=== PATIENT | female | born 1960 | race Caucasian/White ===

== ENCOUNTER 2018-08-16 00:24 | Emergency (ER) | payer OTHER ==
[~2018-08-16] VITALS: Ht 154.9 cm; Wt 66.2 kg
[2018-08-16] MEDS ORDERED: ONDANSETRON HCL INJ 2MG/ML 2ML 2 MG/ML VIAL IV STA (01:16)
[2018-08-16] MEDS ORDERED: HYDROMORPHONE 2MG/ML 2 MG/ML ML ONE (01:21)
[2018-08-16] MEDS ORDERED: ONDANSETRON HCL INJ 2MG/ML 2ML 2 MG/ML VIAL ONE (01:21)
[2018-08-16 01:29] LABS: BASOPHILS # (AUTO) 0.1 (0.0-0.1); BASOPHILS % 0.2 % (0.0-1.0); HEMOGLOBIN 11.9 g/dL (12.0-16.0); LYMPHOCYTES # (AUTO) 0.7 (1.0-3.2); LYMPHOCYTES % 1.9 % (18.0-39.1); MEAN CORPUSCULAR HEMOGLOBIN 23.9 pg (28-32); MEAN CORPUSCULAR HGB CONC 31.3 g/dL (31-35); MEAN CORPUSCULAR VOLUME 76.3 fL (81-99); MONOCYTES # (AUTO) 1.4 (0.2-0.8); NEUTROPHILS # (AUTO) 33.2 (2.1-6.9); NEUTROPHILS % 92.9 % (38.7-80.0); PLATELET COUNT 504 x10e3/uL (140-360); RED BLOOD COUNT 4.98 x10e6/uL (3.6-5.1)
[2018-08-16] MEDS ORDERED: HYDROMORPHONE 2MG/ML 2 MG/ML ML IV ONE ×5 (01:30→15:30)
[2018-08-16 01:32] LABS: COLOR,URINE YELLOW (YELLOW); LEUKOCYTE ESTERASE ,URINE 2+ (NEGATIVE); NITRITE,URINE NEGATIVE (NEGATIVE); PROTEIN,URINE DIPSTICK 2+ (NEGATIVE)
[2018-08-16 01:33] LABS: BILIRUBIN,URINE 2+ (NEGATIVE); CLARITY,URINE CLOUDY (CLEAR); KETONES,URINE TRACE (NEGATIVE); URINE UROBILINOGEN 0.2 mg/dL (0.2 - 1)
[2018-08-16 01:49] LABS: ALBUMIN 3.3 g/dL (3.5-5.0); ALBUMIN/GLOBULIN RATIO 0.9 (0.8-2.0); ALKALINE PHOSPHATASE 50 IU/L (40-150); ANION GAP 22.3 mmol/L (8-16); BLOOD UREA NITROGEN 22 mg/dL (7-26); BUN/CREATININE RATIO 19 (6-25); CALCIUM 11.2 mg/dL (8.4-10.2); CARBON DIOXIDE 15 mmol/L (22-29); CHLORIDE 99 mmol/L (98-107); CREATININE, SERUM 1.14 mg/dL (0.57-1.11); EST GLOMERULAR FILTRATION RATE 49 ML/MIN (60-); GLUCOSE 232 mg/dL (74-118); POTASSIUM 4.3 mmol/L (3.5-5.1); SODIUM 132 mmol/L (136-145)
[2018-08-16 01:50] LABS: ALANINE AMINOTRANSFERASE < 6 IU/L (0-55)
[2018-08-16] MEDS ORDERED: SODIUM CHLORIDE 0.9% 1000ML 1,000 ML IV SCH ×2 (02:00→07:45)
[2018-08-16 02:07] LABS: BACTERIA,URINE FEW /HPF; EPITHELIAL CELLS,URINE RARE /LPF; MUCUS,URINE MANY (RARE); RBC,URINE >50 /HPF (0-5); WBC,URINE (MAN) >50 /HPF (0-5)
[2018-08-16] MEDS ORDERED: IOPAMIDOL 370 MG/ML 200 ML INFUS..BTL INJ ONE (02:32)
[2018-08-16] MEDS ORDERED: SODIUM CHLORIDE 0.9% 50ML 50 ML ONE (02:32)
--- NOTE | 2018-08-16 02:35 | Diagnostic Imaging Report ---
EXAM: CT Abdomen and Pelvis WITH and without contrast INDICATION: Pain COMPARISON: None. TECHNIQUE: Abdomen and Pelvis was scanned utilizing a multidetector helical scanner before and after administration of IV contrast. Coronal and sagittal reformations were obtained. IV CONTRAST: 100 mL Isovue-370 COMPLICATIONS: None RADIATION DOSE: Total DLP:286 mGy*cm Estimated effective dose: (DLP x 0.015 x size factor) mSv CTDIvol has been reviewed. It is below the limits set by the Radiation Protocol Committee (RPC). Appropriate CT dose reduction techniques were utilized. FINDINGS: Abdomen: Lung Bases: No acute findings. Solid Organs: Liver is enlarged. Left kidney atrophic. Tiny nonobstructing bilateral renal calculi better demonstrated precontrast images. No hydronephrosis or ureteral calculi. Solid organs otherwise unremarkable. Upper GI Tract: Decompressed stomach limits evaluation. No small bowel obstructive changes. Vascularity: Mild to moderate aortic vascular calcifications with no aneurysm. Lymph Nodes: No suspicious adenopathy. Other: None. Pelvis: Bladder: Decompressed, limiting evaluation. Other: Markedly enlarged heterogeneous/necrotic uterus/mass consistent with known malignancy. Colon: Diverticulosis sigmoid colon. There is a loop of colon with inflammatory changes in the central lower abdomen/upper pelvis directly adjacent to large uterine mass. Visualized portions of appendix not dilated and gas-filled. Bones: No acute findings. IMPRESSION: 1. Markedly enlarged heterogeneous/necrotic uterus, consistent with known malignancy. 2. Diverticulosis. Mild to moderate inflammatory stranding about loops of sigmoid colon likely diverticulitis. Given adjacent uterine mass, malignant involvement of sigmoid colon not excluded. 3. Appendix not distinctly dilated and gas-filled, which is normal/physiologic. Surrounding inflammation presumed secondary to above described process and not appendicitis. 4. Hepatomegaly. Signed by: Dr. Ruddy Atkins MD on 08/16/2018 2:32 AM
[2018-08-16] MEDS ORDERED: PIPER-TAZ 3.375 GM 50 ML IV STA (02:39)
[2018-08-16] MEDS ORDERED: METRONIDAZOLE 500MG/NS 100ML 100 ML IV STA (02:39)
--- NOTE | 2018-08-16 03:55 | NUR ---
DR. BARRY PHAM, PTS SCREWDOWN OPERATOR, PAGED THRU ANSWERING SERVICE ([phone]) PER ER MD REQUEST
--- NOTE | 2018-08-16 04:13 | NUR ---
TRANSFER INITIATED TO [facility], SPOKE TO ABDIRASHID
--- NOTE | 2018-08-16 05:13 | NUR ---
TRANSFER DENIED BY [facility] DUE TO NO CLAY ARTIST/ONCOLOGY
--- NOTE | 2018-08-16 05:14 | NUR ---
TRANSFER INITIATED TO [facility]
--- NOTE | 2018-08-16 05:45 | NUR ---
PER [facility], ATTEMPTING TO CONTACT PREPARED FOODS TEAM LEADER ONCOLOGY
--- NOTE | 2018-08-16 06:35 | NUR ---
SPOKE TO [facility] AT [facility], [facility]UARD IS CALLING [facility]; PER EDUARD, UNABLE TO DETERMINE WHICH MD IS [facility] FOR ONCOLOGY
--- NOTE | 2018-08-16 07:14 | NUR ---
Report to GAUTAM Rojas
[2018-08-16] MEDS ORDERED: SODIUM CHLORIDE 0.9% 1000ML 1,000 ML IV ONE (07:30)
[2018-08-16 08:35] VITALS: BP 119/71
== END 2018-08-16 09:12 | disposition short-term general hospital (02) ==
LOC: ER 00:24
DX: R10.31 Right lower quadrant pain (principal); R11.2 Nausea with vomiting, unspecified; K57.32 Diverticulitis of large intestine without perforation or abscess without bleeding; C55 Malignant neoplasm of uterus, part unspecified
CPT/HCPCS: 36415; 74178; 80053; 81001; 83605; 85025; 96374; 96375; 96376; 99284; J1170; J2405; J2543; J7030; Q9967

== ENCOUNTER 2018-10-25 18:52 | Inpatient (IN) | payer OTHER ==
[~2018-10-25] VITALS: Ht 154.9 cm; Wt 56.4 kg
--- OUTSIDE RECORDS SUMMARY | 2018-10-25 18:55 | XMS REPORT | Clinical Summary ---
Author Author DARYN [facility] Address Unknown Phone Unavailable Care Team Providers Care History Instructor Name Role Phone PCP Unavailable Allergies No Known Allergies Medications End Date Status Medication Sig Dispensed Refills Start Date 09/21/2019 Active acetaminophen (TYLENOL) Take 2 30 tablet 0 325 MG tablet tablets (650 9 mg total) by mouth every 6 (six) hours for 360 days. Active dextrose 50% solution Inject 25 mLs 50 mL 0 intravenously 9 as needed (blood sugar less than 70 and patient unable to take PO juice or soda). Active enoxaparin (LOVENOX) 40 Inject 0.4 1 Syringe 0 mg/0.4 mL Syrg mLs (40 mg 9 total) subcutaneousl y daily. Active ertapenem (INVanz) MBP 1 Inject 1 g 0 g in 100 mL NS intravenously 9 daily. Active fluconazole (DIFLUCAN) Inject 200 200 mL 0 IVPB 400 mg in sodium mLs (400 mg 9 chloride 0.9% (NS) 200 mL total) intravenously daily. Active furosemide (LASIX) 10 Inject 4 mLs 4 mL 0 mg/mL injection (40 mg total) 9 intravenously 2 (two) times daily. 09/26/2019 Active insulin regular (HUMULIN Use as 10 mL 0 R,NOVOLIN R) 100 unit/mL directed. 9 injection Active insulin NPH 100 unit/mL Inject 0.18 10 mL 0 (3 mL) InPn mLs (18 Units 9 total) subcutaneousl y daily. 09/21/2019 Active ipratropium-albuterol Take 3 mLs by 10 ampule 0 (DUO-NEB) 0.5 mg-3 mg(2.5 nebulization 9 mg base)/3 mL nebulizer every 6 (six) solution hours for 360 days. 10/26/2018 Active lidocaine (LIDODERM) 5 % Place 1 patch 30 patch 0 patch onto the skin 9 daily for 30 days Remove & Discard patch within 12 hours or as directed by MD. Active ondansetron (ZOFRAN) 4 Inject 2 mLs 20 mL 0 mg/2 mL injection (4 mg total) 9 intravenously every 8 (eight) hours as needed. 09/26/2019 Active insulin regular (HUMULIN Use as 10 mL 0 R,NOVOLIN R) 100 unit/mL directed. 9 injection 10/06/2018 collagenase (SANTYL) 250 Apply 15 g 0 units/g ointment topically 9 daily for 10 days. Active Problems Problem Noted Date Anemia 09/26/2018 Hypoxemia requiring supplemental oxygen 09/04/2018 Hypervolemia 09/04/2018 Hypokalemia 09/04/2018 Hypomagnesemia 09/04/2018 Uterine cancer 08/22/2018 Pelvic abscess in female 08/22/2018 Acute pain 08/22/2018 Acute hypoxemic respiratory failure 08/22/2018 Smoker 08/22/2018 Type 2 diabetes mellitus, without long-term current use of insulin 08/22/2018 Kidney stones 08/22/2018 Essential hypertension 08/22/2018 HLD (hyperlipidemia) 08/22/2018 Deep tissue injury 08/22/2018 Hyperchloremia 08/22/2018 Severe sepsis with acute organ dysfunction 08/22/2018 Resolved Problems Problem Noted Date Resolved Date Acute blood loss anemia 08/22/2018 09/26/2018 Encounters Care Team Description Date Type Specialty Carolyn Harrington CRNA 09/18/2018 Anesthesia Event Wai Cassidy MD CYSTOSCOPY,INSERTION URETERAL STENTS 09/18/2018 Surgery Reza David MD 08/22/2018 Anesthesia Event Bob Mancera MD LAPAROTOMY,EXPLORATORY 08/22/2018 Surgery Abby Benson MD 08/22/2018 Anesthesia Intensive Care Event Johnny Reyes MD Rodriguez, Angel Arturo, MD Acute blood loss anemia; Acute hypoxemic respiratory failure (HCC); Postprocedural intra-abdominal sepsis; Severe sepsis with acute organ dysfunction (HCC); Acute respiratory insufficiency; Acute pain; Malignant neoplasm of endometrium (HCC); Hypervolemia, unspecified hypervolemia type; Hypomagnesemia; Hypoxemia requiring supplemental oxygen 08/22/2018 [facility] General Internal Medicine - Encounter 09/26/2018 08/22/2018 Orders Only General Internal Medicine after 10/24/2017 Social History Date Tobacco Use Types Packs/Day Years Used Never Assessed Sex Assigned at Date Recorded Not on file Industry Job Start Date Occupation Not on file Not on file Not on file Travel End Travel History Travel Start No recent travel history available. Last Filed Vital Signs Time Taken Vital Sign Reading 09/26/2018 12:00 PM CDT Blood Pressure 126/78 09/26/2018 12:00 PM CDT Pulse 89 09/26/2018 12:00 PM CDT Temperature 36.1 C (97 F) 09/26/2018 12:00 PM CDT Respiratory Rate 18 09/26/2018 12:00 PM CDT Oxygen Saturation 94% 09/08/2018 1:30 PM MEDICATION COORDINATOR Inhaled Oxygen 36% Concentration 09/25/2018 4:59 AM CDT Weight 59.2 kg (130 lb 9.6 oz) 08/22/2018 2:00 AM MEDICATION COORDINATOR Height 154.9 cm (5' 1") 09/25/2018 4:59 AM CDT Body Mass Index 24.68 Plan of Treatment Not on file Implants Device Identifier Shelf Expiration Date Model / Serial / Lot Implanted Type Area Manufactur er 10/08/2018 [id number] / N/A / [id number] Stent Uret [employer]nt[employer] Inj [id number] IMPLANTS Left: Ureter [employer] [id number] - Sn/A SCI:UROLOG Implanted: Qty: 1 on 09/18/2018 by Rolan/Wai Hollis MD GY 10/08/2018 [id number] / N/A / [id number] Stent [employer] Inj [id number] IMPLANTS Right: Ureter [employer] [id number] - Sn/A SCI:UROLOG Implanted: Qty: 1 on 09/18/2018 by Rolan/Wai Hollis MD GY Procedures Comments Procedure Name Priority Date/Time Associated Diagnosis RHYTHM STRIP - SCAN 10/12/2018 7:30 PM CDT RHYTHM STRIP - SCAN 09/28/2018 10:21 AM CDT POCT-GLUCOSE METER Routine 09/26/2018 12:02 PM CDT POCT-GLUCOSE METER Routine 09/26/2018 7:50 AM CDT XR CHEST 1 VIEW Routine 09/26/2018 PORTABLE/BEDSIDE 7:34 AM CDT CBC W/PLT COUNT & AUTO Routine 09/26/2018 DIFFERENTIAL 5:32 AM CDT CBC W/PLT COUNT & AUTO Routine 09/26/2018 DIFFERENTIAL 5:32 AM CDT BASIC METABOLIC PANEL (7) Routine 09/26/2018 5:32 AM CDT PHOSPHORUS Routine 09/26/2018 5:32 AM CDT MAGNESIUM Routine 09/26/2018 5:32 AM CDT PT/APTT Routine 09/26/2018 5:32 AM CDT POCT-GLUCOSE METER Routine 09/25/2018 8:56 PM CDT POCT-GLUCOSE METER Routine 09/25/2018 5:36 PM CDT POCT-GLUCOSE METER Routine 09/25/2018 12:35 PM CDT XR CHEST 1 VIEW Routine 09/25/2018 PORTABLE/BEDSIDE 9:04 AM CDT POCT-GLUCOSE METER Routine 09/25/2018 7:54 AM CDT CBC W/PLT COUNT & AUTO Routine 09/25/2018 DIFFERENTIAL 5:08 AM CDT CBC W/PLT COUNT & AUTO Routine 09/25/2018 DIFFERENTIAL 5:08 AM CDT BASIC METABOLIC PANEL (7) Routine 09/25/2018 5:08 AM CDT PHOSPHORUS Routine 09/25/2018 5:08 AM CDT MAGNESIUM Routine 09/25/2018 5:08 AM CDT PT/APTT Routine 09/25/2018 5:08 AM CDT POCT-GLUCOSE METER Routine 09/24/2018 9:19 PM CDT POCT-GLUCOSE METER Routine 09/24/2018 6:05 PM CDT POCT-GLUCOSE METER Routine 09/24/2018 12:38 PM CDT XR CHEST 1 VIEW Routine 09/24/2018 PORTABLE/BEDSIDE 10:50 AM CDT POCT-GLUCOSE METER Routine 09/24/2018 8:23 AM CDT CBC W/PLT COUNT & AUTO Routine 09/24/2018 DIFFERENTIAL 4:51 AM CDT CBC W/PLT COUNT & AUTO Routine 09/24/2018 DIFFERENTIAL 4:51 AM CDT BASIC METABOLIC PANEL (7) Routine 09/24/2018 4:51 AM CDT PHOSPHORUS Routine 09/24/2018 4:51 AM CDT MAGNESIUM Routine 09/24/2018 4:51 AM CDT PT/APTT Routine 09/24/2018 4:51 AM CDT POCT-GLUCOSE METER Routine 09/23/2018 9:24 PM CDT POCT-GLUCOSE METER Routine 09/23/2018 5:34 PM CDT POCT-GLUCOSE METER Routine 09/23/2018 1:48 PM CDT URINALYSIS W/ REFLEX Routine 09/23/2018 URINE CULTURE 11:48 AM CDT URINE CULTURE Routine 09/23/2018 11:48 AM CDT POCT-GLUCOSE METER Routine 09/23/2018 7:05 AM CDT CBC W/PLT COUNT & AUTO Routine 09/23/2018 DIFFERENTIAL 5:30 AM CDT CBC W/PLT COUNT & AUTO Routine 09/23/2018 DIFFERENTIAL 5:30 AM CDT BASIC METABOLIC PANEL (7) Routine 09/23/2018 5:30 AM CDT PHOSPHORUS Routine 09/23/2018 5:30 AM CDT MAGNESIUM Routine 09/23/2018 5:30 AM CDT PT/APTT Routine 09/23/2018 5:30 AM CDT XR CHEST 1 VIEW Routine 09/23/2018 PORTABLE/BEDSIDE 4:05 AM CDT POCT-GLUCOSE METER Routine 09/22/2018 9:29 PM CDT POCT-GLUCOSE METER Routine 09/22/2018 5:04 PM CDT POCT-GLUCOSE METER Routine 09/22/2018 12:02 PM CDT POCT-GLUCOSE METER Routine 09/22/2018 8:25 AM CDT XR CHEST 1 VIEW Routine 09/22/2018 PORTABLE/BEDSIDE 7:19 AM CDT PHOSPHORUS Routine 09/22/2018 5:45 AM CDT MAGNESIUM Routine 09/22/2018 5:45 AM CDT PT/APTT Routine 09/22/2018 5:45 AM CDT POCT-GLUCOSE METER Routine 09/21/2018 9:28 PM CDT POCT-GLUCOSE METER Routine 09/21/2018 6:04 PM CDT POCT-GLUCOSE METER Routine 09/21/2018 11:52 AM CDT POCT-GLUCOSE METER Routine 09/21/2018 7:41 AM CDT XR CHEST 1 VIEW Routine 09/21/2018 PORTABLE/BEDSIDE 7:08 AM CDT PT/APTT Routine 09/21/2018 4:10 AM CDT CBC W/PLT COUNT & AUTO Routine 09/21/2018 DIFFERENTIAL 4:03 AM CDT CBC W/PLT COUNT & AUTO Routine 09/21/2018 DIFFERENTIAL 4:03 AM CDT BASIC METABOLIC PANEL (7) Routine 09/21/2018 4:03 AM CDT PHOSPHORUS Routine 09/21/2018 4:03 AM CDT MAGNESIUM Routine 09/21/2018 4:03 AM CDT POCT-GLUCOSE METER Routine 09/20/2018 9:33 PM CDT POCT-GLUCOSE METER Routine 09/20/2018 5:43 PM CDT POCT-GLUCOSE METER Routine 09/20/2018 11:46 AM CDT XR CHEST 1 VIEW Routine 09/20/2018 PORTABLE/BEDSIDE 8:39 AM CDT POCT-GLUCOSE METER Routine 09/20/2018 7:46 AM CDT CBC W/PLT COUNT & AUTO Routine 09/20/2018 DIFFERENTIAL 4:28 AM CDT CBC W/PLT COUNT & AUTO Routine 09/20/2018 DIFFERENTIAL 4:28 AM CDT BASIC METABOLIC PANEL (7) Routine 09/20/2018 4:28 AM CDT PHOSPHORUS Routine 09/20/2018 4:28 AM CDT MAGNESIUM Routine 09/20/2018 4:28 AM CDT PT/APTT Routine 09/20/2018 4:28 AM CDT POCT-GLUCOSE METER Routine 09/19/2018 9:12 PM CDT POCT-GLUCOSE METER Routine 09/19/2018 5:39 PM CDT POCT-GLUCOSE METER Routine 09/19/2018 12:54 PM CDT POCT-GLUCOSE METER Routine 09/19/2018 9:21 AM CDT XR CHEST 1 VIEW Routine 09/19/2018 PORTABLE/BEDSIDE 8:55 AM CDT CBC W/PLT COUNT & AUTO Routine 09/19/2018 DIFFERENTIAL 5:17 AM CDT CBC W/PLT COUNT & AUTO Routine 09/19/2018 DIFFERENTIAL 5:17 AM CDT BASIC METABOLIC PANEL (7) Routine 09/19/2018 5:17 AM CDT PHOSPHORUS Routine 09/19/2018 5:17 AM CDT MAGNESIUM Routine 09/19/2018 5:17 AM CDT PT/APTT Routine 09/19/2018 5:17 AM CDT POCT-GLUCOSE METER Routine 09/18/2018 10:46 PM CDT POCT-GLUCOSE METER Routine 09/18/2018 9:35 PM CDT FL SUSTAIN ENGINEER IN OR 30 Routine 09/18/2018 MINUTE INCREMENTS 9:15 PM CDT POCT-GLUCOSE METER Routine 09/18/2018 4:08 PM CDT CYSTOSCOPY,RETROGRADES 09/18/2018 Hydronephrosis, 2:40 PM CDT unspecified hydronephrosis type Special Needs REQ: TF CYSTOSCOPY,INSERTION 09/18/2018 Hydronephrosis, URETERAL STENTS 2:40 PM CDT unspecified hydronephrosis type Special Needs REQ: TF POCT-GLUCOSE METER Routine 09/18/2018 1:30 PM CDT US RENAL COMPLETE SHIVANI 09/18/2018 11:52 AM CDT URINE CULTURE Routine 09/18/2018 9:07 AM CDT POCT-GLUCOSE METER Routine 09/18/2018 8:32 AM CDT XR CHEST 1 VIEW Routine 09/18/2018 PORTABLE/BEDSIDE 7:28 AM CDT CBC W/PLT COUNT & AUTO Routine 09/18/2018 DIFFERENTIAL 3:52 AM CDT CBC W/PLT COUNT & AUTO Routine 09/18/2018 DIFFERENTIAL 3:52 AM CDT BASIC METABOLIC PANEL (7) Routine 09/18/2018 3:52 AM CDT PHOSPHORUS Routine 09/18/2018 3:52 AM CDT MAGNESIUM Routine 09/18/2018 3:52 AM CDT PT/APTT Routine 09/18/2018 3:52 AM CDT POCT-GLUCOSE METER Routine 09/17/2018 9:06 PM CDT POCT-GLUCOSE METER Routine 09/17/2018 5:52 PM CDT POCT-GLUCOSE METER Routine 09/17/2018 11:23 AM CDT POCT-GLUCOSE METER Routine 09/17/2018 7:29 AM CDT XR CHEST 1 VIEW Routine 09/17/2018 PORTABLE/BEDSIDE 5:47 AM CDT CBC W/PLT COUNT & AUTO Routine 09/17/2018 DIFFERENTIAL 4:06 AM CDT CBC W/PLT COUNT & AUTO Routine 09/17/2018 DIFFERENTIAL 4:06 AM CDT BASIC METABOLIC PANEL (7) Routine 09/17/2018 4:06 AM CDT PHOSPHORUS Routine 09/17/2018 4:06 AM CDT MAGNESIUM Routine 09/17/2018 4:06 AM CDT PT/APTT Routine 09/17/2018 4:06 AM CDT POCT-GLUCOSE METER Routine 09/16/2018 8:58 PM MEDICATION COORDINATOR POCT-GLUCOSE METER Routine 09/16/2018 5:54 PM MEDICATION COORDINATOR POCT-GLUCOSE METER Routine 09/16/2018 11:24 AM MEDICATION COORDINATOR XR CHEST 1 VIEW Routine 09/16/2018 PORTABLE/BEDSIDE 10:09 AM MEDICATION COORDINATOR POCT-GLUCOSE METER Routine 09/16/2018 7:31 AM MEDICATION COORDINATOR CBC W/PLT COUNT & AUTO Routine 09/16/2018 DIFFERENTIAL 4:03 AM MEDICATION COORDINATOR COMPREHENSIVE METABOLIC Routine 09/16/2018 PANEL 4:03 AM MEDICATION COORDINATOR PHOSPHORUS Routine 09/16/2018 4:03 AM MEDICATION COORDINATOR MAGNESIUM Routine 09/16/2018 4:03 AM MEDICATION COORDINATOR PT/APTT Routine 09/16/2018 4:03 AM MEDICATION COORDINATOR CBC W/PLT COUNT & AUTO Routine 09/16/2018 DIFFERENTIAL 4:03 AM MEDICATION COORDINATOR POCT-GLUCOSE METER Routine 09/15/2018 9:10 PM MEDICATION COORDINATOR POCT-GLUCOSE METER Routine 09/15/2018 6:[address] DRAINAGE ABDOMINAL Routine 09/15/2018 4:54 PM MEDICATION COORDINATOR BODY FLUID CULTURE + GRAM SHIVANI 09/15/2018 STAIN 4:[address] ABDOMEN/PELVIS WITHOUT Routine 09/15/2018 IV CONTRAST 12:34 PM MEDICATION COORDINATOR XR CHEST 1 VIEW Routine 09/15/2018 PORTABLE/BEDSIDE 9:51 AM MEDICATION COORDINATOR URINALYSIS W/ MICROSCOPIC Routine 09/15/2018 8:59 AM MEDICATION COORDINATOR UREA NITROGEN, RANDOM Routine 09/15/2018 URINE 8:59 AM MEDICATION COORDINATOR CREATININE, RANDOM URINE Routine 09/15/2018 8:59 AM MEDICATION COORDINATOR SODIUM, RANDOM URINE Routine 09/15/2018 8:59 AM MEDICATION COORDINATOR POCT-GLUCOSE METER Routine 09/15/2018 7:58 AM MEDICATION COORDINATOR CBC W/PLT COUNT & AUTO Routine 09/15/2018 DIFFERENTIAL 4:15 AM MEDICATION COORDINATOR CBC W/PLT COUNT & AUTO Routine 09/15/2018 DIFFERENTIAL 4:15 AM MEDICATION COORDINATOR PHOSPHORUS Routine 09/15/2018 4:15 AM MEDICATION COORDINATOR MAGNESIUM Routine 09/15/2018 4:15 AM MEDICATION COORDINATOR BASIC METABOLIC PANEL (7) Routine 09/15/2018 4:15 AM MEDICATION COORDINATOR PT/APTT Routine 09/15/2018 4:15 AM MEDICATION COORDINATOR CBC W/PLT COUNT & AUTO Routine 09/15/2018 DIFFERENTIAL 4:15 AM MEDICATION COORDINATOR CBC W/PLT COUNT & AUTO Routine 09/15/2018 DIFFERENTIAL 4:15 AM MEDICATION COORDINATOR BASIC METABOLIC PANEL (7) Routine 09/15/2018 4:15 AM MEDICATION COORDINATOR POCT-GLUCOSE METER Routine 09/14/2018 8:54 PM MEDICATION COORDINATOR POCT-GLUCOSE METER Routine 09/14/2018 6:26 PM MEDICATION COORDINATOR PREALBUMIN Routine 09/14/2018 3:04 PM MEDICATION COORDINATOR POCT-GLUCOSE METER Routine 09/14/2018 9:03 AM MEDICATION COORDINATOR XR CHEST 1 VIEW Routine 09/14/2018 PORTABLE/BEDSIDE 7:38 AM MEDICATION COORDINATOR CBC W/PLT COUNT & AUTO Routine 09/14/2018 DIFFERENTIAL 4:42 AM MEDICATION COORDINATOR CBC W/PLT COUNT & AUTO Routine 09/14/2018 DIFFERENTIAL 4:42 AM MEDICATION COORDINATOR PHOSPHORUS Routine 09/14/2018 4:42 AM MEDICATION COORDINATOR MAGNESIUM Routine 09/14/2018 4:42 AM MEDICATION COORDINATOR BASIC METABOLIC PANEL (7) Routine 09/14/2018 4:42 AM MEDICATION COORDINATOR PT/APTT Routine 09/14/2018 4:42 AM MEDICATION COORDINATOR CBC W/PLT COUNT & AUTO Routine 09/14/2018 DIFFERENTIAL 4:42 AM MEDICATION COORDINATOR CBC W/PLT COUNT & AUTO Routine 09/14/2018 DIFFERENTIAL 4:42 AM MEDICATION COORDINATOR BASIC METABOLIC PANEL (7) Routine 09/14/2018 4:42 AM MEDICATION COORDINATOR POCT-GLUCOSE METER Routine 09/13/2018 9:10 PM MEDICATION COORDINATOR POCT-GLUCOSE METER Routine 09/13/2018 6:00 PM MEDICATION COORDINATOR POCT-GLUCOSE METER Routine 09/13/2018 5:04 PM MEDICATION COORDINATOR XR CHEST 1 VIEW Routine 09/13/2018 PORTABLE/BEDSIDE 6:21 AM MEDICATION COORDINATOR CBC W/PLT COUNT & AUTO Routine 09/13/2018 DIFFERENTIAL 5:29 AM MEDICATION COORDINATOR HEMOGLOBIN A1C Routine 09/13/2018 5:29 AM MEDICATION COORDINATOR CBC W/PLT COUNT & AUTO Routine 09/13/2018 DIFFERENTIAL 5:29 AM MEDICATION COORDINATOR BASIC METABOLIC PANEL (7) Routine 09/13/2018 5:29 AM MEDICATION COORDINATOR CBC W/PLT COUNT & AUTO Routine 09/13/2018 DIFFERENTIAL 4:54 AM MEDICATION COORDINATOR PHOSPHORUS Routine 09/13/2018 4:54 AM MEDICATION COORDINATOR MAGNESIUM Routine 09/13/2018 4:54 AM MEDICATION COORDINATOR BASIC METABOLIC PANEL (7) Routine 09/13/2018 4:54 AM MEDICATION COORDINATOR PT/APTT Routine 09/13/2018 4:54 AM MEDICATION COORDINATOR CBC W/PLT COUNT & AUTO Routine 09/13/2018 DIFFERENTIAL 4:54 AM MEDICATION COORDINATOR POCT-GLUCOSE METER Routine 09/12/2018 10:35 PM MEDICATION COORDINATOR POCT-GLUCOSE METER Routine 09/12/2018 9:56 PM MEDICATION COORDINATOR POCT-GLUCOSE METER Routine 09/12/2018 5:57 PM MEDICATION COORDINATOR POCT-GLUCOSE METER Routine 09/12/2018 5:09 PM MEDICATION COORDINATOR POCT-GLUCOSE METER Routine 09/12/2018 7:46 AM MEDICATION COORDINATOR XR CHEST 1 VIEW Routine 09/12/2018 PORTABLE/BEDSIDE 7:25 AM MEDICATION COORDINATOR CBC W/PLT COUNT & AUTO Routine 09/12/2018 DIFFERENTIAL 4:10 AM MEDICATION COORDINATOR PHOSPHORUS Routine 09/12/2018 4:10 AM MEDICATION COORDINATOR MAGNESIUM Routine 09/12/2018 4:10 AM MEDICATION COORDINATOR BASIC METABOLIC PANEL (7) Routine 09/12/2018 4:10 AM MEDICATION COORDINATOR PT/APTT Routine 09/12/2018 4:10 AM MEDICATION COORDINATOR CBC W/PLT COUNT & AUTO Routine 09/12/2018 DIFFERENTIAL 4:10 AM MEDICATION COORDINATOR POCT-GLUCOSE METER Routine 09/11/2018 9:10 PM MEDICATION COORDINATOR POCT-GLUCOSE METER Routine 09/11/2018 6:02 PM MEDICATION COORDINATOR POCT-GLUCOSE METER Routine 09/11/2018 5:36 PM MEDICATION COORDINATOR POCT-GLUCOSE METER Routine 09/11/2018 11:[address] ABDOMEN/PELVIS WITH IV Routine 09/11/2018 CONTRAST 10:32 AM MEDICATION COORDINATOR XR CHEST 1 VIEW Routine 09/11/2018 PORTABLE/BEDSIDE 7:51 AM MEDICATION COORDINATOR POCT-GLUCOSE METER Routine 09/11/2018 7:21 AM MEDICATION COORDINATOR CBC W/PLT COUNT & AUTO Routine 09/11/2018 DIFFERENTIAL 5:53 AM MEDICATION COORDINATOR PHOSPHORUS Routine 09/11/2018 5:53 AM MEDICATION COORDINATOR MAGNESIUM Routine 09/11/2018 5:53 AM MEDICATION COORDINATOR BASIC METABOLIC PANEL (7) Routine 09/11/2018 5:53 AM MEDICATION COORDINATOR PT/APTT Routine 09/11/2018 5:53 AM MEDICATION COORDINATOR CBC W/PLT COUNT & AUTO Routine 09/11/2018 DIFFERENTIAL 5:53 AM MEDICATION COORDINATOR BASIC METABOLIC PANEL (7) Routine 09/11/2018 5:53 AM MEDICATION COORDINATOR POCT-GLUCOSE METER Routine 09/10/2018 9:08 PM MEDICATION COORDINATOR POCT-GLUCOSE METER Routine 09/10/2018 5:58 PM MEDICATION COORDINATOR POCT-GLUCOSE METER Routine 09/10/2018 12:56 PM MEDICATION COORDINATOR XR CHEST 1 VIEW Routine 09/10/2018 PORTABLE/BEDSIDE 9:31 AM MEDICATION COORDINATOR POCT-GLUCOSE METER Routine 09/10/2018 9:27 AM MEDICATION COORDINATOR CBC W/PLT COUNT & AUTO Routine 09/10/2018 DIFFERENTIAL 7:07 AM MEDICATION COORDINATOR PHOSPHORUS Routine 09/10/2018 7:07 AM MEDICATION COORDINATOR MAGNESIUM Routine 09/10/2018 7:07 AM MEDICATION COORDINATOR BASIC METABOLIC PANEL (7) Routine 09/10/2018 7:07 AM MEDICATION COORDINATOR PT/APTT Routine 09/10/2018 7:07 AM MEDICATION COORDINATOR CBC W/PLT COUNT & AUTO Routine 09/10/2018 DIFFERENTIAL 7:07 AM MEDICATION COORDINATOR POCT-GLUCOSE METER Routine 09/09/2018 9:11 PM MEDICATION COORDINATOR POCT-GLUCOSE METER Routine 09/09/2018 5:28 PM MEDICATION COORDINATOR POCT-GLUCOSE METER Routine 09/09/2018 12:52 PM MEDICATION COORDINATOR XR CHEST 1 VIEW Routine 09/09/2018 PORTABLE/BEDSIDE 9:08 AM MEDICATION COORDINATOR POCT-GLUCOSE METER Routine 09/09/2018 7:31 AM MEDICATION COORDINATOR CBC W/PLT COUNT & AUTO Routine 09/09/2018 DIFFERENTIAL 5:15 AM MEDICATION COORDINATOR PHOSPHORUS Routine 09/09/2018 5:15 AM MEDICATION COORDINATOR MAGNESIUM Routine 09/09/2018 5:15 AM MEDICATION COORDINATOR PT/APTT Routine 09/09/2018 5:15 AM MEDICATION COORDINATOR CBC W/PLT COUNT & AUTO Routine 09/09/2018 DIFFERENTIAL 5:15 AM MEDICATION COORDINATOR BASIC METABOLIC PANEL (7) Routine 09/09/2018 5:15 AM MEDICATION COORDINATOR POCT-GLUCOSE METER Routine 09/08/2018 11:39 PM MEDICATION COORDINATOR POCT-GLUCOSE METER Routine 09/08/2018 5:31 PM MEDICATION COORDINATOR POCT-GLUCOSE METER Routine 09/08/2018 11:49 AM MEDICATION COORDINATOR POCT-GLUCOSE METER Routine 09/08/2018 8:13 AM MEDICATION COORDINATOR XR CHEST 1 VIEW Routine 09/08/2018 PORTABLE/BEDSIDE 7:19 AM MEDICATION COORDINATOR CBC W/PLT COUNT & AUTO Routine 09/08/2018 DIFFERENTIAL 3:29 AM MEDICATION COORDINATOR PHOSPHORUS Routine 09/08/2018 3:29 AM MEDICATION COORDINATOR MAGNESIUM Routine 09/08/2018 3:29 AM MEDICATION COORDINATOR BASIC METABOLIC PANEL (7) Routine 09/08/2018 3:29 AM MEDICATION COORDINATOR PT/APTT Routine 09/08/2018 3:29 AM MEDICATION COORDINATOR CBC W/PLT COUNT & AUTO Routine 09/08/2018 DIFFERENTIAL 3:29 AM MEDICATION COORDINATOR POCT-GLUCOSE METER Routine 09/08/2018 2:11 AM MEDICATION COORDINATOR POCT-GLUCOSE METER Routine 09/08/2018 12:46 AM MEDICATION COORDINATOR POCT-GLUCOSE METER Routine 09/07/2018 9:30 PM MEDICATION COORDINATOR POCT-GLUCOSE METER Routine 09/07/2018 8:59 PM MEDICATION COORDINATOR POCT-GLUCOSE METER Routine 09/07/2018 4:41 PM MEDICATION COORDINATOR POCT-GLUCOSE METER Routine 09/07/2018 9:50 AM MEDICATION COORDINATOR XR CHEST 1 VIEW Routine 09/07/2018 PORTABLE/BEDSIDE 7:43 AM MEDICATION COORDINATOR CBC W/PLT COUNT & AUTO Routine 09/07/2018 DIFFERENTIAL 3:54 AM MEDICATION COORDINATOR PHOSPHORUS Routine 09/07/2018 3:54 AM MEDICATION COORDINATOR MAGNESIUM Routine 09/07/2018 3:54 AM MEDICATION COORDINATOR BASIC METABOLIC PANEL (7) Routine 09/07/2018 3:54 AM MEDICATION COORDINATOR PT/APTT Routine 09/07/2018 3:54 AM MEDICATION COORDINATOR CBC W/PLT COUNT & AUTO Routine 09/07/2018 DIFFERENTIAL 3:54 AM MEDICATION COORDINATOR POCT-GLUCOSE METER Routine 09/06/2018 9:00 PM MEDICATION COORDINATOR POCT-GLUCOSE METER Routine 09/06/2018 5:33 PM MEDICATION COORDINATOR POCT-GLUCOSE METER Routine 09/06/2018 12:23 PM MEDICATION COORDINATOR POCT-GLUCOSE METER Routine 09/06/2018 7:37 AM MEDICATION COORDINATOR XR CHEST 1 VIEW Routine 09/06/2018 PORTABLE/BEDSIDE 7:16 AM MEDICATION COORDINATOR CBC W/PLT COUNT & AUTO Routine 09/06/2018 DIFFERENTIAL 3:59 AM MEDICATION COORDINATOR PHOSPHORUS Routine 09/06/2018 3:59 AM MEDICATION COORDINATOR MAGNESIUM Routine 09/06/2018 3:59 AM MEDICATION COORDINATOR BASIC METABOLIC PANEL (7) Routine 09/06/2018 3:59 AM MEDICATION COORDINATOR PT/APTT Routine 09/06/2018 3:59 AM MEDICATION COORDINATOR CBC W/PLT COUNT & AUTO Routine 09/06/2018 DIFFERENTIAL 3:59 AM MEDICATION COORDINATOR BASIC METABOLIC PANEL (7) Routine 09/06/2018 3:59 AM MEDICATION COORDINATOR POCT-GLUCOSE METER Routine 09/05/2018 10:31 PM MEDICATION COORDINATOR POCT-GLUCOSE METER Routine 09/05/2018 4:57 PM MEDICATION COORDINATOR POCT-GLUCOSE METER Routine 09/05/2018 11:40 AM MEDICATION COORDINATOR POCT-GLUCOSE METER Routine 09/05/2018 10:11 AM MEDICATION COORDINATOR POCT-GLUCOSE METER Routine 09/05/2018 6:07 AM MEDICATION COORDINATOR CBC W/PLT COUNT & AUTO Routine 09/05/2018 DIFFERENTIAL 4:54 AM MEDICATION COORDINATOR PHOSPHORUS Routine 09/05/2018 4:54 AM MEDICATION COORDINATOR MAGNESIUM Routine 09/05/2018 4:54 AM MEDICATION COORDINATOR BASIC METABOLIC PANEL (7) Routine 09/05/2018 4:54 AM MEDICATION COORDINATOR PT/APTT Routine 09/05/2018 4:54 AM MEDICATION COORDINATOR CBC W/PLT COUNT & AUTO Routine 09/05/2018 DIFFERENTIAL 4:54 AM MEDICATION COORDINATOR XR CHEST 1 VIEW Routine 09/05/2018 PORTABLE/BEDSIDE 4:42 AM MEDICATION COORDINATOR POCT-GLUCOSE METER Routine 09/05/2018 12:43 AM MEDICATION COORDINATOR POCT-GLUCOSE METER Routine 09/05/2018 12:12 AM MEDICATION COORDINATOR POCT-GLUCOSE METER Routine 09/04/2018 7:[address] ABDOMEN/PELVIS WITH IV STAT 09/04/2018 CONTRAST 6:06 PM MEDICATION COORDINATOR TRANSFUSION SERVICE 09/04/2018 REPORT - SCAN 6:01 PM MEDICATION COORDINATOR POCT-GLUCOSE METER Routine 09/04/2018 4:42 PM MEDICATION COORDINATOR POCT-GLUCOSE METER Routine 09/04/2018 12:03 PM MEDICATION COORDINATOR XR CHEST 1 VIEW Routine 09/04/2018 PORTABLE/BEDSIDE 7:07 AM MEDICATION COORDINATOR POCT-GLUCOSE METER Routine 09/04/2018 6:03 AM MEDICATION COORDINATOR CBC W/PLT COUNT & AUTO Routine 09/04/2018 DIFFERENTIAL 5:03 AM MEDICATION COORDINATOR PHOSPHORUS Routine 09/04/2018 5:03 AM MEDICATION COORDINATOR MAGNESIUM Routine 09/04/2018 5:03 AM MEDICATION COORDINATOR BASIC METABOLIC PANEL (7) Routine 09/04/2018 5:03 AM MEDICATION COORDINATOR PT/APTT Routine 09/04/2018 5:03 AM MEDICATION COORDINATOR CBC W/PLT COUNT & AUTO Routine 09/04/2018 DIFFERENTIAL 5:03 AM MEDICATION COORDINATOR POCT-GLUCOSE METER Routine 09/04/2018 12:54 AM MEDICATION COORDINATOR PREPARE LEUKO-REDUCED RBC Routine 09/03/2018 11:54 PM MEDICATION COORDINATOR POCT-GLUCOSE METER Routine 09/03/2018 6:30 PM MEDICATION COORDINATOR TRANSFUSION SERVICE 09/03/2018 REPORT - SCAN 6:00 PM MEDICATION COORDINATOR POCT-GLUCOSE METER Routine 09/03/2018 12:39 PM MEDICATION COORDINATOR POCT-GLUCOSE METER Routine 09/03/2018 5:55 AM MEDICATION COORDINATOR XR CHEST 1 VIEW Routine 09/03/2018 PORTABLE/BEDSIDE 5:27 AM MEDICATION COORDINATOR CBC W/PLT COUNT & AUTO Routine 09/03/2018 DIFFERENTIAL 4:52 AM MEDICATION COORDINATOR PHOSPHORUS Routine 09/03/2018 4:52 AM MEDICATION COORDINATOR MAGNESIUM Routine 09/03/2018 4:52 AM MEDICATION COORDINATOR BASIC METABOLIC PANEL (7) Routine 09/03/2018 4:52 AM MEDICATION COORDINATOR PT/APTT Routine 09/03/2018 4:52 AM MEDICATION COORDINATOR CBC W/PLT COUNT & AUTO Routine 09/03/2018 DIFFERENTIAL 4:52 AM MEDICATION COORDINATOR BLOOD GAS, ARTERIAL Routine 09/03/2018 4:46 AM MEDICATION COORDINATOR POCT-GLUCOSE METER Routine 09/02/2018 11:45 PM MEDICATION COORDINATOR POCT-GLUCOSE METER Routine 09/02/2018 5:55 PM MEDICATION COORDINATOR CBC W/PLT COUNT & AUTO Routine 09/02/2018 DIFFERENTIAL 12:07 PM MEDICATION COORDINATOR CBC W/PLT COUNT & AUTO Routine 09/02/2018 DIFFERENTIAL 12:07 PM MEDICATION COORDINATOR POCT-GLUCOSE METER Routine 09/02/2018 11:44 AM MEDICATION COORDINATOR TRANSFUSE LEUKO-REDUCED Routine 09/02/2018 RED BLOOD CELLS 10:58 AM MEDICATION COORDINATOR TYPE AND SCREEN, STAT 09/02/2018 AUTOMATED 6:22 AM MEDICATION COORDINATOR POCT-GLUCOSE METER Routine 09/02/2018 6:21 AM MEDICATION COORDINATOR XR CHEST 1 VIEW Routine 09/02/2018 PORTABLE/BEDSIDE 4:30 AM MEDICATION COORDINATOR CBC W/PLT COUNT & AUTO Routine 09/02/2018 DIFFERENTIAL 2:21 AM MEDICATION COORDINATOR PHOSPHORUS Routine 09/02/2018 2:21 AM MEDICATION COORDINATOR MAGNESIUM Routine 09/02/2018 2:21 AM MEDICATION COORDINATOR BASIC METABOLIC PANEL (7) Routine 09/02/2018 2:21 AM MEDICATION COORDINATOR PT/APTT Routine 09/02/2018 2:21 AM MEDICATION COORDINATOR CBC W/PLT COUNT & AUTO Routine 09/02/2018 DIFFERENTIAL 2:21 AM MEDICATION COORDINATOR POCT-GLUCOSE METER Routine 09/02/2018 12:00 AM MEDICATION COORDINATOR XR ABDOMEN 1 VIEW STAT 09/01/2018 7:18 PM MEDICATION COORDINATOR POCT-GLUCOSE METER Routine 09/01/2018 6:13 PM MEDICATION COORDINATOR POCT-GLUCOSE METER Routine 09/01/2018 11:47 AM MEDICATION COORDINATOR POCT-GLUCOSE METER Routine 09/01/2018 6:22 AM MEDICATION COORDINATOR XR CHEST 1 VIEW Routine 09/01/2018 PORTABLE/BEDSIDE 4:06 AM MEDICATION COORDINATOR CBC W/PLT COUNT & AUTO Routine 09/01/2018 DIFFERENTIAL 4:03 AM MEDICATION COORDINATOR PHOSPHORUS Routine 09/01/2018 4:03 AM MEDICATION COORDINATOR MAGNESIUM Routine 09/01/2018 4:03 AM MEDICATION COORDINATOR BASIC METABOLIC PANEL (7) Routine 09/01/2018 4:03 AM MEDICATION COORDINATOR PT/APTT Routine 09/01/2018 4:03 AM MEDICATION COORDINATOR CBC W/PLT COUNT & AUTO Routine 09/01/2018 DIFFERENTIAL 4:03 AM MEDICATION COORDINATOR POCT-GLUCOSE METER Routine 09/01/2018 12:20 AM MEDICATION COORDINATOR ECHOCARDIOGRAM REPORT - 08/31/2018 SCAN 9:21 PM MEDICATION COORDINATOR POCT-GLUCOSE METER Routine 08/31/2018 6:55 PM MEDICATION COORDINATOR PHOSPHORUS Routine 08/31/2018 1:07 PM MEDICATION COORDINATOR MAGNESIUM Routine 08/31/2018 1:07 PM MEDICATION COORDINATOR BASIC METABOLIC PANEL (7) Routine 08/31/2018 1:07 PM MEDICATION COORDINATOR POCT-GLUCOSE METER Routine 08/31/2018 12:50 PM MEDICATION COORDINATOR 2D ECHO W/ DOPPLER STAT 08/31/2018 (CW/PW/COLOR) 11:58 AM MEDICATION COORDINATOR POCT-GLUCOSE METER Routine 08/31/2018 8:28 AM MEDICATION COORDINATOR POCT-GLUCOSE METER Routine 08/31/2018 6:14 AM MEDICATION COORDINATOR XR CHEST 1 VIEW Routine 08/31/2018 PORTABLE/BEDSIDE 4:45 AM MEDICATION COORDINATOR CBC W/PLT COUNT & AUTO Routine 08/31/2018 DIFFERENTIAL 3:40 AM MEDICATION COORDINATOR PHOSPHORUS Routine 08/31/2018 3:40 AM MEDICATION COORDINATOR MAGNESIUM Routine 08/31/2018 3:40 AM MEDICATION COORDINATOR BASIC METABOLIC PANEL (7) Routine 08/31/2018 3:40 AM MEDICATION COORDINATOR BLOOD GAS, VENOUS Routine 08/31/2018 3:40 AM MEDICATION COORDINATOR PT/APTT Routine 08/31/2018 3:40 AM MEDICATION COORDINATOR CBC W/PLT COUNT & AUTO Routine 08/31/2018 DIFFERENTIAL 3:40 AM MEDICATION COORDINATOR POCT-GLUCOSE METER Routine 08/31/2018 12:18 AM MEDICATION COORDINATOR TRANSFUSION SERVICE 08/30/2018 REPORT - SCAN 6:01 PM MEDICATION COORDINATOR POCT-GLUCOSE METER Routine 08/30/2018 5:22 PM MEDICATION COORDINATOR POCT-GLUCOSE METER Routine 08/30/2018 11:05 AM MEDICATION COORDINATOR POCT-GLUCOSE METER Routine 08/30/2018 5:38 AM MEDICATION COORDINATOR XR CHEST 1 VIEW Routine 08/30/2018 PORTABLE/BEDSIDE 4:54 AM MEDICATION COORDINATOR (CELLAVISION MANUAL DIFF) Routine 08/30/2018 3:52 AM MEDICATION COORDINATOR CBC W/PLT COUNT & AUTO Routine 08/30/2018 DIFFERENTIAL 3:52 AM MEDICATION COORDINATOR PHOSPHORUS Routine 08/30/2018 3:52 AM MEDICATION COORDINATOR MAGNESIUM Routine 08/30/2018 3:52 AM MEDICATION COORDINATOR BASIC METABOLIC PANEL (7) Routine 08/30/2018 3:52 AM MEDICATION COORDINATOR BLOOD GAS, VENOUS Routine 08/30/2018 3:52 AM MEDICATION COORDINATOR PT/APTT Routine 08/30/2018 3:52 AM MEDICATION COORDINATOR CBC W/PLT COUNT & AUTO Routine 08/30/2018 DIFFERENTIAL 3:52 AM MEDICATION COORDINATOR POCT-GLUCOSE METER Routine 08/30/2018 12:02 AM MEDICATION COORDINATOR PHOSPHORUS Routine 08/29/2018 9:04 PM MEDICATION COORDINATOR MAGNESIUM Routine 08/29/2018 9:04 PM MEDICATION COORDINATOR BASIC METABOLIC PANEL (7) Routine 08/29/2018 9:04 PM MEDICATION COORDINATOR POCT-GLUCOSE METER Routine 08/29/2018 5:55 PM MEDICATION COORDINATOR POCT-GLUCOSE METER Routine 08/29/2018 12:05 PM MEDICATION COORDINATOR XR CHEST 1 VIEW STAT 08/29/2018 PORTABLE/BEDSIDE 8:36 AM MEDICATION COORDINATOR POCT-GLUCOSE METER Routine 08/29/2018 6:21 AM MEDICATION COORDINATOR BLOOD GAS, VENOUS Routine 08/29/2018 4:09 AM MEDICATION COORDINATOR (CELLAVISION MANUAL DIFF) Routine 08/29/2018 4:08 AM MEDICATION COORDINATOR CBC W/PLT COUNT & AUTO Routine 08/29/2018 DIFFERENTIAL 4:08 AM MEDICATION COORDINATOR TYPE AND SCREEN, Routine 08/29/2018 AUTOMATED 4:08 AM MEDICATION COORDINATOR TRIGLYCERIDES Routine 08/29/2018 4:08 AM MEDICATION COORDINATOR CALCIUM, IONIZED Routine 08/29/2018 4:08 AM MEDICATION COORDINATOR PHOSPHORUS Routine 08/29/2018 4:08 AM MEDICATION COORDINATOR MAGNESIUM Routine 08/29/2018 4:08 AM MEDICATION COORDINATOR BASIC METABOLIC PANEL (7) Routine 08/29/2018 4:08 AM MEDICATION COORDINATOR PT/APTT Routine 08/29/2018 4:08 AM MEDICATION COORDINATOR CBC W/PLT COUNT & AUTO Routine 08/29/2018 DIFFERENTIAL 4:08 AM MEDICATION COORDINATOR POCT-GLUCOSE METER Routine 08/29/2018 12:21 AM MEDICATION COORDINATOR POCT-GLUCOSE METER Routine 08/28/2018 7:00 PM MEDICATION COORDINATOR POCT-GLUCOSE METER Routine 08/28/2018 12:16 PM MEDICATION COORDINATOR POCT-GLUCOSE METER Routine 08/28/2018 5:44 AM MEDICATION COORDINATOR (CELLAVISION MANUAL DIFF) Routine 08/28/2018 3:46 AM MEDICATION COORDINATOR CBC W/PLT COUNT & AUTO Routine 08/28/2018 DIFFERENTIAL 3:46 AM MEDICATION COORDINATOR BLOOD GAS, ARTERIAL Routine 08/28/2018 3:46 AM MEDICATION COORDINATOR PHOSPHORUS Routine 08/28/2018 3:46 AM MEDICATION COORDINATOR MAGNESIUM Routine 08/28/2018 3:46 AM MEDICATION COORDINATOR BASIC METABOLIC PANEL (7) Routine 08/28/2018 3:46 AM MEDICATION COORDINATOR PT/APTT Routine 08/28/2018 3:46 AM MEDICATION COORDINATOR CBC W/PLT COUNT & AUTO Routine 08/28/2018 DIFFERENTIAL 3:46 AM MEDICATION COORDINATOR XR CHEST 1 VIEW Routine 08/28/2018 PORTABLE/BEDSIDE 3:45 AM MEDICATION COORDINATOR POCT-GLUCOSE METER Routine 08/28/2018 12:10 AM MEDICATION COORDINATOR XR ABDOMEN 1 VIEW Routine 08/27/2018 6:47 PM MEDICATION COORDINATOR POCT-GLUCOSE METER Routine 08/27/2018 5:49 PM MEDICATION COORDINATOR PHOSPHORUS Routine 08/27/2018 2:32 PM MEDICATION COORDINATOR BASIC METABOLIC PANEL (7) Routine 08/27/2018 2:32 PM MEDICATION COORDINATOR POCT-GLUCOSE METER Routine 08/27/2018 11:58 AM MEDICATION COORDINATOR XR CHEST 1 VIEW Routine 08/27/2018 PORTABLE/BEDSIDE 5:51 AM MEDICATION COORDINATOR POCT-GLUCOSE METER Routine 08/27/2018 5:36 AM MEDICATION COORDINATOR (CELLAVISION MANUAL DIFF) Routine 08/27/2018 4:27 AM MEDICATION COORDINATOR CBC W/PLT COUNT & AUTO Routine 08/27/2018 DIFFERENTIAL 4:27 AM MEDICATION COORDINATOR BLOOD GAS, ARTERIAL Routine 08/27/2018 4:27 AM MEDICATION COORDINATOR PHOSPHORUS Routine 08/27/2018 4:27 AM MEDICATION COORDINATOR MAGNESIUM Routine 08/27/2018 4:27 AM MEDICATION COORDINATOR BASIC METABOLIC PANEL (7) Routine 08/27/2018 4:27 AM MEDICATION COORDINATOR PT/APTT Routine 08/27/2018 4:27 AM MEDICATION COORDINATOR CBC W/PLT COUNT & AUTO Routine 08/27/2018 DIFFERENTIAL 4:27 AM MEDICATION COORDINATOR POCT-GLUCOSE METER Routine 08/27/2018 12:39 AM MEDICATION COORDINATOR POCT-GLUCOSE METER Routine 2018 6:23 PM MEDICATION COORDINATOR POCT-GLUCOSE METER Routine 2018 12:07 PM MEDICATION COORDINATOR POCT-GLUCOSE METER Routine 2018 6:35 AM MEDICATION COORDINATOR BLOOD GAS, ARTERIAL Routine 2018 3:14 AM MEDICATION COORDINATOR CBC W/PLT COUNT & AUTO Routine 2018 DIFFERENTIAL 3:11 AM MEDICATION COORDINATOR PT/APTT Routine 2018 3:11 AM MEDICATION COORDINATOR CBC W/PLT COUNT & AUTO Routine 2018 DIFFERENTIAL 3:11 AM MEDICATION COORDINATOR XR CHEST 1 VIEW Routine 2018 PORTABLE/BEDSIDE 2:50 AM MEDICATION COORDINATOR POCT-GLUCOSE METER Routine 2018 12:14 AM MEDICATION COORDINATOR PHOSPHORUS Routine 08/25/2018 11:35 PM MEDICATION COORDINATOR MAGNESIUM Routine 08/25/2018 11:35 PM MEDICATION COORDINATOR BASIC METABOLIC PANEL (7) Routine 08/25/2018 11:35 PM MEDICATION COORDINATOR VANCOMYCIN LEVEL, TROUGH Timed 08/25/2018 9:14 PM MEDICATION COORDINATOR POCT-GLUCOSE METER Routine 08/25/2018 6:27 PM MEDICATION COORDINATOR URINALYSIS W/ REFLEX STAT 08/25/2018 URINE CULTURE 1:02 PM MEDICATION COORDINATOR SPUTUM CULTURE + GRAM STAT 08/25/2018 STAIN 1:02 PM MEDICATION COORDINATOR BLOOD CULTURE STAT 08/25/2018 1:01 PM MEDICATION COORDINATOR BLOOD CULTURE STAT 08/25/2018 1:01 PM MEDICATION COORDINATOR POCT-GLUCOSE METER Routine 08/25/2018 12:56 PM MEDICATION COORDINATOR BLOOD GAS, ARTERIAL STAT 08/25/2018 10:23 AM MEDICATION COORDINATOR POCT-GLUCOSE METER Routine 08/25/2018 7:51 AM MEDICATION COORDINATOR POCT-GLUCOSE METER Routine 08/25/2018 5:35 AM MEDICATION COORDINATOR CBC W/PLT COUNT & AUTO Routine 08/25/2018 DIFFERENTIAL 3:45 AM MEDICATION COORDINATOR BLOOD GAS, ARTERIAL Routine 08/25/2018 3:45 AM MEDICATION COORDINATOR PHOSPHORUS Routine 08/25/2018 3:45 AM MEDICATION COORDINATOR MAGNESIUM Routine 08/25/2018 3:45 AM MEDICATION COORDINATOR BASIC METABOLIC PANEL (7) Routine 08/25/2018 3:45 AM MEDICATION COORDINATOR PT/APTT Routine 08/25/2018 3:45 AM MEDICATION COORDINATOR CBC W/PLT COUNT & AUTO Routine 08/25/2018 DIFFERENTIAL 3:45 AM MEDICATION COORDINATOR XR CHEST 1 VIEW Routine 08/25/2018 PORTABLE/BEDSIDE 3:25 AM MEDICATION COORDINATOR BLOOD GAS, ARTERIAL Routine 08/25/2018 2:07 AM MEDICATION COORDINATOR POCT-GLUCOSE METER Routine 08/24/2018 11:52 PM MEDICATION COORDINATOR POCT-GLUCOSE METER Routine 08/24/2018 5:42 PM MEDICATION COORDINATOR POCT-GLUCOSE METER Routine 08/24/2018 11:44 AM MEDICATION COORDINATOR VANCOMYCIN LEVEL, TROUGH Timed 08/24/2018 8:13 AM MEDICATION COORDINATOR POCT-GLUCOSE METER Routine 08/24/2018 6:05 AM MEDICATION COORDINATOR XR CHEST 1 VIEW Routine 08/24/2018 PORTABLE/BEDSIDE 4:43 AM MEDICATION COORDINATOR BLOOD GAS, ARTERIAL Routine 08/24/2018 4:10 AM MEDICATION COORDINATOR (CELLAVISION MANUAL DIFF) Routine 08/24/2018 4:04 AM MEDICATION COORDINATOR CBC W/PLT COUNT & AUTO Routine 08/24/2018 DIFFERENTIAL 4:04 AM MEDICATION COORDINATOR PHOSPHORUS Routine 08/24/2018 4:04 AM MEDICATION COORDINATOR MAGNESIUM Routine 08/24/2018 4:04 AM MEDICATION COORDINATOR BASIC METABOLIC PANEL (7) Routine 08/24/2018 4:04 AM MEDICATION COORDINATOR PT/APTT Routine 08/24/2018 4:04 AM MEDICATION COORDINATOR CBC W/PLT COUNT & AUTO Routine 08/24/2018 DIFFERENTIAL 4:04 AM MEDICATION COORDINATOR POCT-GLUCOSE METER Routine 08/24/2018 12:08 AM MEDICATION COORDINATOR TRANSFUSION SERVICE 08/23/2018 REPORT - SCAN 6:01 PM MEDICATION COORDINATOR POCT-GLUCOSE METER Routine 08/23/2018 6:01 PM MEDICATION COORDINATOR BLOOD GAS, ARTERIAL Routine 08/23/2018 5:15 PM MEDICATION COORDINATOR PHOSPHORUS Routine 08/23/2018 1:14 PM MEDICATION COORDINATOR MAGNESIUM Routine 08/23/2018 1:14 PM MEDICATION COORDINATOR BASIC METABOLIC PANEL (7) Routine 08/23/2018 1:14 PM MEDICATION COORDINATOR POCT-GLUCOSE METER Routine 08/23/2018 12:06 PM MEDICATION COORDINATOR XR CHEST 1 VIEW Routine 08/23/2018 PORTABLE/BEDSIDE 6:53 AM MEDICATION COORDINATOR POCT-GLUCOSE METER Routine 08/23/2018 6:32 AM MEDICATION COORDINATOR CBC W/PLT COUNT & AUTO Routine 08/23/2018 DIFFERENTIAL 3:26 AM MEDICATION COORDINATOR BLOOD GAS, ARTERIAL Routine 08/23/2018 3:26 AM MEDICATION COORDINATOR PHOSPHORUS Routine 08/23/2018 3:26 AM MEDICATION COORDINATOR MAGNESIUM Routine 08/23/2018 3:26 AM MEDICATION COORDINATOR BASIC METABOLIC PANEL (7) Routine 08/23/2018 3:26 AM MEDICATION COORDINATOR PT/APTT Routine 08/23/2018 3:26 AM MEDICATION COORDINATOR CBC W/PLT COUNT & AUTO Routine 08/23/2018 DIFFERENTIAL 3:26 AM MEDICATION COORDINATOR POCT-GLUCOSE METER Routine 08/23/2018 1:54 AM MEDICATION COORDINATOR POCT-GLUCOSE METER Routine 08/23/2018 12:34 AM MEDICATION COORDINATOR BLOOD GAS, ARTERIAL Routine 08/23/2018 12:19 AM MEDICATION COORDINATOR BLOOD GAS, ARTERIAL Routine 08/22/2018 8:16 PM MEDICATION COORDINATOR PHOSPHORUS Routine 08/22/2018 8:16 PM MEDICATION COORDINATOR MAGNESIUM Routine 08/22/2018 8:16 PM MEDICATION COORDINATOR CBC (HEMOGRAM ONLY) Routine 08/22/2018 8:16 PM MEDICATION COORDINATOR BASIC METABOLIC PANEL (7) Routine 08/22/2018 8:16 PM MEDICATION COORDINATOR POCT-GLUCOSE METER Routine 08/22/2018 6:55 PM MEDICATION COORDINATOR PREPARE LEUKO-REDUCED RBC STAT 08/22/2018 5:18 PM MEDICATION COORDINATOR SURGICALLY OBTAINED Routine 08/22/2018 CULTURE + GRAM STAIN 5:11 PM MEDICATION COORDINATOR ANAEROBIC CULTURE Routine 08/22/2018 5:11 PM MEDICATION COORDINATOR HGB/HCT (H&H) - STAT LAB STAT 08/22/2018 5:05 PM MEDICATION COORDINATOR GLUCOSE-STAT LAB STAT 08/22/2018 5:05 PM MEDICATION COORDINATOR POTASSIUM-STAT LAB STAT 08/22/2018 5:05 PM MEDICATION COORDINATOR SODIUM NA-STAT LAB STAT 08/22/2018 5:05 PM MEDICATION COORDINATOR BLOOD GAS, ARTERIAL STAT 08/22/2018 5:05 PM MEDICATION COORDINATOR CALCIUM, IONIZED STAT 08/22/2018 5:05 PM MEDICATION COORDINATOR RRL CRITICAL LABS STAT 08/22/2018 (ABG,NA,K,H&H,GLUCOSE) 5:05 PM MEDICATION COORDINATOR ABORH, MANUAL STAT 08/22/2018 4:15 PM MEDICATION COORDINATOR TYPE AND SCREEN, STAT 08/22/2018 AUTOMATED 4:[address] ABDOMEN/PELVIS WITH IV STAT 08/22/2018 CONTRAST 3:03 PM MEDICATION COORDINATOR CREATION,ILEOSTOMY 08/22/2018 Bowel and bladder 2:25 PM MEDICATION COORDINATOR incontinence Special Needs REQ 1400 LAPAROTOMY,EXPLORATORY 08/22/2018 Bowel and bladder 2:25 PM MEDICATION COORDINATOR incontinence Special Needs REQ 1400 (CELLAVISION MANUAL DIFF) Routine 08/22/2018 1:55 PM MEDICATION COORDINATOR CBC W/PLT COUNT & AUTO Routine 08/22/2018 DIFFERENTIAL 1:55 PM MEDICATION COORDINATOR PHOSPHORUS Routine 08/22/2018 1:55 PM MEDICATION COORDINATOR MAGNESIUM Routine 08/22/2018 1:55 PM MEDICATION COORDINATOR BASIC METABOLIC PANEL (7) Routine 08/22/2018 1:55 PM MEDICATION COORDINATOR CBC W/PLT COUNT & AUTO Routine 08/22/2018 DIFFERENTIAL 1:55 PM MEDICATION COORDINATOR POCT-GLUCOSE METER Routine 08/22/2018 1:53 PM MEDICATION COORDINATOR BLOOD GAS, ARTERIAL STAT 08/22/2018 1:50 PM MEDICATION COORDINATOR POCT-GLUCOSE METER Routine 08/22/2018 12:56 PM MEDICATION COORDINATOR URINALYSIS W/ REFLEX STAT 08/22/2018 URINE CULTURE 11:21 AM MEDICATION COORDINATOR POCT-GLUCOSE METER Routine 08/22/2018 10:46 AM MEDICATION COORDINATOR XR CHEST 1 VIEW STAT 08/22/2018 PORTABLE/BEDSIDE 9:25 AM MEDICATION COORDINATOR XR ABDOMEN 1 VIEW STAT 08/22/2018 9:25 AM MEDICATION COORDINATOR BLOOD GAS, ARTERIAL STAT 08/22/2018 8:22 AM MEDICATION COORDINATOR XR CHEST 1 VIEW STAT 08/22/2018 PORTABLE/BEDSIDE 3:44 AM MEDICATION COORDINATOR ECG 12-LEAD Routine 08/22/2018 3:31 AM MEDICATION COORDINATOR ECG 12-LEAD Routine 08/22/2018 3:31 AM MEDICATION COORDINATOR Procedure Note - Interface, External Ris In - 08/22/2018 6:23 PM MEDICATION COORDINATOR Ventricula r Rate 108 BPM Atrial Rate 108 BPM P-R Interval 146 ms QRS Duration 104 ms Q-T Interval 344 ms QTC Calculatio n(Bazett) 460 ms P [place] 62 degrees R [place] 62 degrees T [place] 25 degrees Sinus tachycardi a Possible Inferior infarct , age undetermin ed Abnormal ECG No previous ECGs available BLOOD GAS, ARTERIAL Routine 08/22/2018 3:19 AM MEDICATION COORDINATOR BLOOD CULTURE Routine 08/22/2018 3:06 AM MEDICATION COORDINATOR LACTIC ACID, VENOUS Routine 08/22/2018 3:04 AM MEDICATION COORDINATOR CBC W/PLT COUNT & AUTO Routine 08/22/2018 DIFFERENTIAL 2:48 AM MEDICATION COORDINATOR PHOSPHORUS Routine 08/22/2018 2:48 AM MEDICATION COORDINATOR MAGNESIUM STAT 08/22/2018 2:48 AM MEDICATION COORDINATOR COMPREHENSIVE METABOLIC Routine 08/22/2018 PANEL 2:48 AM MEDICATION COORDINATOR PT/APTT Routine 08/22/2018 2:48 AM MEDICATION COORDINATOR CBC W/PLT COUNT & AUTO Routine 08/22/2018 DIFFERENTIAL 2:48 AM MEDICATION COORDINATOR BLOOD CULTURE Routine 08/22/2018 2:47 AM MEDICATION COORDINATOR after 10/24/2017 Results * RHYTHM STRIP - SCAN (10/12/2018 7:30 PM CDT) Only the most recent of 2 results within the time period is included. Narrative Performed At * POC-Glucose meter (09/26/2018 12:02 PM CDT) Only the most recent of 151 results within the time period is included. POC-Glucose Meter 128 (H)Comment: TESTED AT 70 - 110 mg/dL [facility] [address] [facility] [id number] Specimen Blood Performing Organization Address City/State/Zipcode Phone Number [place] [phone] [place] [address] [facility] * XR chest 1 view portable/bedside (09/26/2018 7:34 AM CDT) Only the most recent of 37 results within the time period is included. Narrative Performed At FINAL REPORT [place] Chest one view. Clinical history: evaluation of pulmonary edema Comparison: 09/25/2018 Discussion: A frontal chest is provided. The cardiac and mediastinal contours are unremarkable allowing for portable technique. There is no pneumothorax, javed pulmonary edema, consolidation or significant pleural effusion. The bony structures are unremarkable. Signed: Josefa Dickey MD Report Verified Date/Time:09/26/2018 08:13:08 Reading Location: [facility] Radiology Reading Room Procedure Note Interface, External Ris In - 09/26/2018 8:23 AM CDT FINAL REPORT Chest one view. Clinical history: evaluation of pulmonary edema Comparison: 09/25/2018 Discussion: A frontal chest is provided. The cardiac and mediastinal contours are unremarkable allowing for portable technique. There is no pneumothorax, javed pulmonary edema, consolidation or significant pleural effusion. The bony structures are unremarkable. Signed: Josefa Dickey MD Report Verified Date/Time: 09/26/2018 08:13:08 Reading Location: [facility] Reading Room Performing Organization Address City/State/Zipcode Phone Number [facility] * PT/aPTT (09/26/2018 5:32 AM CDT) Only the most recent of 36 results within the time period is included. Protime 14.8 (H) 11.7 - 14.7 seconds [facility] INR 1.2 <=5.9 [facility] PTT 49.5 (H) 22.5 - 36.0 seconds [facility] Specimen Blood Narrative Performed At RECOMMENDED COUMADIN/WARFARIN INR THERAPY RANGES [facility] STANDARD DOSE: 2.0 - 3.0 Includes: PROPHYLAXIS for venous thrombosis, [facility] systemic embolization; TREATMENT for venous thrombosis and/or pulmonary embolus. HIGH RISK: Target INR is 2.5-3.5 for patients with mechanical heart valves. Performing Organization Address City/[facility] Phone Number [place] [phone] [place] [address] [facility] * CBC with platelet count + automated diff (09/26/2018 5:32 AM CDT) Only the most recent of 40 results within the time period is included. WBC 13.7 (H) 3.5 - 10.5 K/L [facility] RBC 4.50 3.93 - 5.22 M/L [facility] Hemoglobin 10.6 (L) 11.2 - 15.7 GM/DL [facility] Hematocrit 35.2 34.1 - 44.9 % [facility] MCV 78.2 (L) 79.4 - 94.8 fL [facility] MCH 23.6 (L) 25.6 - 32.2 pg [facility] MCHC 30.1 (L) 32.2 - 35.5 GM/DL [facility] RDW 20.1 (H) 11.7 - 14.4 % [facility] Platelets 531 (H) 150 - 450 K/CU MM [facility] MPV 9.5 9.4 - 12.3 fL [facility] nRBC 0 0 - 0 /100 WBC [facility] % Neutros 72 % [facility] % Lymphs 17 % [facility] % Monos 7 % [facility] % Eos 2 % [facility] % Baso 1 % [facility] # Neutros 9.91 (H) 1.56 - 6.13 K/L [facility] # Lymphs 2.35 1.18 - 3.74 K/L [facility] # Monos 0.99 (H) 0.24 - 0.36 K/L [facility] # Eos 0.25 0.04 - 0.36 K/L [facility] # Baso 0.07 0.01 - 0.08 K/L [facility] Immature 1 0 - 1 % [facility] Granulocytes-[facility] Specimen Blood Performing Organization Address City/State/Zipcode Phone Number [facility] [address] [place] [address] [facility] * Phosphorus (09/26/2018 5:32 AM CDT) Only the most recent of 42 results within the time period is included. Phosphorus 2.6 2.3 - 4.7 mg/dL [facility] Specimen Blood Performing Organization Address City/State/Zipcode Phone Number [facility] [address] [place] [address] [facility] * Magnesium (09/26/2018 5:32 AM CDT) Only the most recent of 41 results within the time period is included. Magnesium 1.7 1.6 - 2.6 mg/dL [facility] Specimen Blood Performing Organization Address City/[facility]/Zipcode Phone Number [place] [phone] [place] [address] [facility] * Basic Metabolic Panel (09/26/2018 5:32 AM CDT) Only the most recent of 44 results within the time period is included. Sodium 133 (L) 136 - 145 meq/L [facility] Potassium 3.5 3.5 - 5.1 meq/L [facility] Chloride 95 (L) 98 - 107 meq/L [facility] CO2 26 22 - 29 meq/L [facility] BUN 14 7 - 21 mg/dL [facility] Creatinine 0.70 0.57 - 1.25 mg/dL [facility] Glucose 89 70 - 105 mg/dL [facility] Calcium 12.1 (H) 8.4 - 10.2 mg/dL [facility] EGFR 86Comment: ESTIMATED GFR IS mL/min/1.73 sq m [facility] NOT ACCURATE CREATININE [facility] CLEARANCE IN PREDICTING GLOMERULAR FILTRATION RATE. ESTIMATED GFR IS NOT APPLICABLE FOR DIALYSIS PATIENTS. Specimen Blood Performing Organization Address City/[facility]/Zipcode Phone Number [address] [address] [phone] [place] [address] * Urinalysis w/Microscopic + Reflex to Culture (09/23/2018 11:48 AM CDT) Only the most recent of 3 results within the time period is included. Color, UA Yellow [facility] Clarity, UA Hazy [facility] Specific [place], UA 1.014 1.001 - 1.035 [facility] pH, UA 6.0 5.0 - 8.0 [facility] Protein, UA 70 mg/dL (A) Negative [facility] Glucose, UA Negative Negative [facility] Ketones, UA Negative Negative [facility] Bilirubin, UA Negative Negative [facility] Blood, UA Large (A) Negative [facility] Nitrite, UA Negative Negative [facility] Leukocytes, UA Large (A) Negative [facility] Urobilinogen, UA 0.2 0.2 - 1.0 mg/dL [facility] RBC, UA 251 /HPF [facility] WBC, UA 87 /HPF [facility] Bacteria, UA Rare [facility] Squam Epithel, UA <1 /HPF [facility] Specimen Source [facility] Specimen Urine - Urine, Voided Performing Organization Address City/State/Zipcode Phone Number [facility] [address] [place] [address] [facility] * Urine culture (09/23/2018 11:48 AM CDT) Only the most recent of 2 results within the time period is included. Result No growth [facility] Specimen Urine - Urine, Voided Performing Organization Address City/[facility]/Zipcode Phone Number [facility] [address] [place] [address] [facility] * [place] Posting Clerk in OR 30 minute increments (09/18/2018 9:15 PM CDT) Narrative Performed At PROCEDURE PERFORMED IN O.R. - PLEASE REFER TO THE INTRAOPERATIVE [facility] REPORT. Procedure Note Interface, External Ris In - 10/03/2018 4:55 PM CDT PROCEDURE PERFORMED IN O.R. - PLEASE REFER TO THE INTRAOPERATIVE REPORT. Performing Organization Address City/State/Zipcode Phone Number [facility] * US renal complete (09/18/2018 11:52 AM CDT) Narrative Performed At FINAL REPORT [employer] Renal ultrasound, 09/18/2018 Grayscale and limited Doppler evaluations of the kidneys were performed. COMPARISON: CT, 09/15/2018 The right kidney is slightly enlarged measuring 13.7 cm in length and exhibits moderate hydronephrosis. No definite stones or masses are identified. The degree of hydronephrosis appears to be similar to that noted on the prior CT. Echogenicity appears normal. The left kidney measures 9.3 cm in length. There is no evidence of significant hydronephrosis. The considerable left-sided hydronephrosis noted on the prior CT examination has resolved. No stones or masses are observed. Blood flow can be seen in both kidneys. Bladder is collapsed secondary to Lyle catheter. CONCLUSION: Persistent right-sided hydronephrosis. Left hydronephrosis has resolved. Signed: Dwain Strickland MD Report Verified Date/Time:09/18/2018 12:06:53 Reading Location: [address] Ultrasound Reading Room Procedure Note Interface, External Ris In - 09/18/2018 12:09 PM CDT FINAL REPORT Renal ultrasound, 09/18/2018 Grayscale and limited Doppler evaluations of the kidneys were performed. COMPARISON: CT, 09/15/2018 The right kidney is slightly enlarged measuring 13.7 cm in length and exhibits moderate hydronephrosis. No definite stones or masses are identified. The degree of hydronephrosis appears to be similar to that noted on the prior CT. Echogenicity appears normal. The left kidney measures 9.3 cm in length. There is no evidence of significant hydronephrosis. The considerable left-sided hydronephrosis noted on the prior CT examination has resolved. No stones or masses are observed. Blood flow can be seen in both kidneys. Bladder is collapsed secondary to Lyle catheter. CONCLUSION: Persistent right-sided hydronephrosis. Left hydronephrosis has resolved. Signed: Dwain Strickland MD Report Verified Date/Time: 09/18/2018 12:06:53 Reading Location: [facility] [id number] Ultrasound Reading Room Performing Organization Address City/State/Zipcode Phone Number [facility] * Comprehensive metabolic panel (09/16/2018 4:03 AM MEDICATION COORDINATOR) Only the most recent of 2 results within the time period is included. Protein, Total 6.3 6.0 - 8.3 gm/dL [facility] Albumin 3.0 (L) 3.5 - 5.0 g/dL [facility] Alkaline Phosphatase 64 40 - 150 U/L [facility] Total Bilirubin 0.2 0.2 - 1.2 mg/dL [facility] Sodium 135 (L) 136 - 145 meq/L [facility] Potassium 4.0 3.5 - 5.1 meq/L [facility] Chloride 98 98 - 107 meq/L [facility] CO2 28 22 - 29 meq/L [facility] BUN 22 (H) 7 - 21 mg/dL [facility] Creatinine 1.60 (H) 0.57 - 1.25 mg/dL [facility] Glucose 99 70 - 105 mg/dL [facility] Calcium 10.1 8.4 - 10.2 mg/dL [facility] AST 12 5 - 34 U/L [facility] ALT <6 (L) 6 - 55 U/L [facility] EGFR 33Comment: ESTIMATED GFR IS mL/min/1.73 sq m [facility] NOT ACCURATE CREATININE [facility] CLEARANCE IN PREDICTING GLOMERULAR FILTRATION RATE. ESTIMATED GFR IS NOT APPLICABLE FOR DIALYSIS PATIENTS. Specimen Blood Performing Organization Address City/State/Zipcode Phone Number [facility] [address] [place] [address] [facility] * CT drainage abdominal (09/15/2018 4:54 PM MEDICATION COORDINATOR) Narrative Performed At FINAL REPORT [employer] PROCEDURE: Pelvic abscess drainage. Dose modulation, iterative reconstruction, and/or weight-based adjustment of the mA/kV was utilized to reduce the radiation dose to as low as reasonably achievable. INDICATION: Pelvic abscess. COMPARISON: CT from the same day. SEDATION: Intravenous moderate sedation was administered by radiology nursing and monitored under the direction of the undersigned radiologist. The patient's vital signs were monitored throughout the procedure and recorded in the patient's medical record by radiology nursing. Total intraservice time of sedation was 45 minutes. MEDICATIONS: 1.5 mg Versed, 75 mcg fentanyl DESCRIPTION: After obtaining informed written consent, the patient was brought to the procedure room and placed in the supine position. Preliminary CT scan revealed the residual right pelvic abscess. A clear path to the collection was identified. The overlying skin was prepped and draped in the usual, sterile fashion and local 1% lidocaine anesthesia was administered. Under CT guidance, a 19-gauge introducer needle was placed into the abscess, and a J-wire was placed into the abscess. Approximately 30 mL of . Lymphoid was aspirated. The catheter was affixed to the skin and connected to suction bulb. Samples were sent for analysis. Post procedure scan showed no immediate complications. IMPRESSION: Successful placement of a right pelvic 8 Stateless drainage catheter with aspiration of 30 mL of purulent fluid. Signed: Kaleb Carrion MD Report Verified Date/Time:09/15/2018 20:12:36 Reading Location: [facility] B1 C013Y CT Body Reading Room Procedure Note Interface, External Ris In - 09/15/2018 8:14 PM MEDICATION COORDINATOR FINAL REPORT PROCEDURE: Pelvic abscess drainage. Dose modulation, iterative reconstruction, and/or weight-based adjustment of the mA/kV was utilized to reduce the radiation dose to as low as reasonably achievable. INDICATION: Pelvic abscess. COMPARISON: CT from the same day. SEDATION: Intravenous moderate sedation was administered by radiology nursing and monitored under the direction of the undersigned radiologist. The patient's vital signs were monitored throughout the procedure and recorded in the patient's medical record by radiology nursing. Total intraservice time of sedation was 45 minutes. MEDICATIONS: 1.5 mg Versed, 75 mcg fentanyl DESCRIPTION: After obtaining informed written consent, the patient was brought to the procedure room and placed in the supine position. Preliminary CT scan revealed the residual right pelvic abscess. A clear path to the collection was identified. The overlying skin was prepped and draped in the usual, sterile fashion and local 1% lidocaine anesthesia was administered. Under CT guidance, a 19-gauge introducer needle was placed into the abscess, and a J-wire was placed into the abscess. Approximately 30 mL of . Lymphoid was aspirated. The catheter was affixed to the skin and connected to suction bulb. Samples were sent for analysis. Post procedure scan showed no immediate complications. IMPRESSION: Successful placement of a right pelvic 8 Stateless drainage catheter with aspiration of 30 mL of purulent fluid. Signed: Kaleb Carrion MD Report Verified Date/Time: 09/15/2018 20:12:36 Reading Location: [facility] B1 C013Y CT Body Reading Room Performing Organization Address City/State/Zipcode Phone Number [facility] * Body fluid culture + gram stain (09/15/2018 4:44 PM MEDICATION COORDINATOR) Result ENTEROBACTER CLOACAE COMPLEX [facility] (A) [facility] Result ESCHERICHIA COLI (A) [facility] Gram Stain Result 2+ WBCs [facility] Gram Stain Result <1+ gram positive rods [facility] Specimen Body Fluid - Abdomen, Right Antibiotic Method Susceptibility Organism Amikacin <=2: Susceptible Enterobacter cloacae complex Aztreonam >=64: Resistant Enterobacter cloacae complex Cefepime <=1: Susceptible Enterobacter cloacae complex Cefoxitin >=64: Resistant Enterobacter cloacae complex Ceftazidime >=64: Resistant Enterobacter cloacae complex Ceftriaxone >=64: Resistant Enterobacter cloacae complex Ertapenem <=0.5: Susceptible Enterobacter cloacae complex Gentamicin <=1: Susceptible Enterobacter cloacae complex Levofloxacin <=0.12: Susceptible Enterobacter cloacae complex Meropenem <=0.25: Susceptible Enterobacter cloacae complex Piperacillin + Tazobactam >=128: Resistant Enterobacter cloacae complex Tetracycline 2: Susceptible Enterobacter cloacae complex Tobramycin <=1: Susceptible Enterobacter cloacae complex Trimethoprim + Sulfamethoxazole <=20: Susceptible Enterobacter cloacae complex Amikacin <=2: Susceptible Escherichia coli Ampicillin + Sulbactam >=32: Resistant Escherichia coli Aztreonam <=1: Susceptible Escherichia coli Cefepime <=1: Susceptible Escherichia coli Cefoxitin <=4: Susceptible Escherichia coli Ceftazidime <=1: Susceptible Escherichia coli Ceftriaxone <=1: Susceptible Escherichia coli Ertapenem <=0.5: Susceptible Escherichia coli Gentamicin <=1: Susceptible Escherichia coli Levofloxacin >=8: Resistant Escherichia coli Meropenem <=0.25: Susceptible Escherichia coli Piperacillin + Tazobactam <=4: Susceptible Escherichia coli Tetracycline >=16: Resistant Escherichia coli Tobramycin <=1: Susceptible Escherichia coli Trimethoprim + Sulfamethoxazole >=320: Resistant Escherichia coli Performing Organization Address City/State/Zipcode Phone Number [facility] [address] [place] [address] [facility] * CT abdomen/pelvis without iv contrast (09/15/2018 12:34 PM MEDICATION COORDINATOR) Narrative Performed At FINAL REPORT [place] TECHNIQUE: CT of the abdomen and pelvis WITHOUT intravenous contrast and WITHOUT oral contrast. Dose modulation, iterative reconstruction, and/or weight-based adjustment of the mA/kV was utilized to reduce the radiation dose to as low as reasonably achievable. INDICATION: Post operative infection, abdomen pelvis. COMPARISON: CT from 09/11/2018. FINDINGS: ABSENCE OF INTRAVENOUS CONTRAST DECREASES SENSITIVITY FOR DETECTION OF FOCAL LESIONS AND VASCULAR PATHOLOGY. LOWER THORAX: Small bilateral pleural effusions with atelectasis. HEPATOBILIARY: No focal hepatic lesions. The gallbladder is mildly distended, likely due to fasting. No biliary ductal dilatation. SPLEEN: No splenomegaly. PANCREAS: No focal masses or ductal dilatation. ADRENALS: No adrenal nodules. KIDNEYS/URETERS: Bilateral moderate hydronephrosis with ureteral transitions at the pelvic mass. There are at least three punctate nonobstructing stones in each kidney. PELVIC ORGANS/BLADDER: A mass in the pelvis which involves a majority of the uterus measures 13.3 x 6.5 x 8.9 cm. This extends and both adnexa and likely invades the sigmoid colon. Bilateral staging will be provided by a contrast-enhanced scan. However, this of these contacts the adjacent loops of small bowel. PERITONEUM/RETROPERITONEUM: A fluid collection adjacent to the mass in the right measures 3.3 x 3.8 x 5.2 cm, previously 35 5 x 4 x 4.6 cm, essentially unchanged. Small volume free fluid in the pelvis. LYMPH NODES: No lymphadenopathy. VESSELS: Unremarkable. GI TRACT: The sigmoid colon is very by the mass. 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 The mass at least contacts the adjacent small bowel. BONES AND SOFT TISSUES: Unremarkable. IMPRESSION: 1.The right pelvic abscess no longer contains a drainage catheter and is unchanged in size. There does appear to be a small window in the right hemiabdomen, and abscess drainage will be attempted. 2.The pelvic mass appears to invade both adnexa and the adjacent sigmoid colon. In addition, this is inseparable from adjacent to small bowel. This also invades both distal ureters and results in moderate hydronephrosis. Signed: Kaleb Carrion MD Report Verified Date/Time:09/15/2018 13:36:13 Reading Location: [address] Body Reading Room Procedure Note Interface, External Ris In - 09/15/2018 1:38 PM MEDICATION COORDINATOR FINAL REPORT TECHNIQUE: CT of the abdomen and pelvis WITHOUT intravenous contrast and WITHOUT oral contrast. Dose modulation, iterative reconstruction, and/or weight-based adjustment of the mA/kV was utilized to reduce the radiation dose to as low as reasonably achievable. INDICATION: Post operative infection, abdomen pelvis. COMPARISON: CT from 09/11/2018. FINDINGS: ABSENCE OF INTRAVENOUS CONTRAST DECREASES SENSITIVITY FOR DETECTION OF FOCAL LESIONS AND VASCULAR PATHOLOGY. LOWER THORAX: Small bilateral pleural effusions with atelectasis. HEPATOBILIARY: No focal hepatic lesions. The gallbladder is mildly distended, likely due to fasting. No biliary ductal dilatation. SPLEEN: No splenomegaly. PANCREAS: No focal masses or ductal dilatation. ADRENALS: No adrenal nodules. KIDNEYS/URETERS: Bilateral moderate hydronephrosis with ureteral transitions at the pelvic mass. There are at least three punctate nonobstructing stones in each kidney. PELVIC ORGANS/BLADDER: A mass in the pelvis which involves a majority of the uterus measures 13.3 x 6.5 x 8.9 cm. This extends and both adnexa and likely invades the sigmoid colon. Bilateral staging will be provided by a contrast-enhanced scan. However, this of these contacts the adjacent loops of small bowel. PERITONEUM/RETROPERITONEUM: A fluid collection adjacent to the mass in the right measures 3.3 x 3.8 x 5.2 cm, previously 35 5 x 4 x 4.6 cm, essentially unchanged. Small volume free fluid in the pelvis. LYMPH NODES: No lymphadenopathy. VESSELS: Unremarkable. GI TRACT: The sigmoid colon is very by the mass. 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 The mass at least contacts the adjacent small bowel. BONES AND SOFT TISSUES: Unremarkable. IMPRESSION: 1.The right pelvic abscess no longer contains a drainage catheter and is unchanged in size. There does appear to be a small window in the right hemiabdomen, and abscess drainage will be attempted. 2.The pelvic mass appears to invade both adnexa and the adjacent sigmoid colon. In addition, this is inseparable from adjacent to small bowel. This also invades both distal ureters and results in moderate hydronephrosis. Signed: Kaleb Carrion MD Report Verified Date/Time: 09/15/2018 13:36:13 Reading Location: [facility] B1 C013Y CT Body Reading Room Performing Organization Address City/[facility]/Zipcode Phone Number [facility] * Urea Nitrogen, random urine (09/15/2018 8:59 AM MEDICATION COORDINATOR) Urea Nitrogen, Ur 122 mg/dL [facility] Specimen Urine - Urine, Voided Narrative Performed At Reference Range: No Normals [facility] Performing Organization Address City/[facility]/Zipcode Phone Number [facility] [address] [place] [address] [facility] * Sodium, random urine (09/15/2018 8:59 AM MEDICATION COORDINATOR) Sodium Urine 114 meq/L [facility] Specimen Urine - Urine, Voided Narrative Performed At Reference Range: No Normals [facility] Performing Organization Address City/[facility]/Zipcode Phone Number [address] * Creatinine, random urine (09/15/2018 8:59 AM MEDICATION COORDINATOR) Creatinine, Ur 18.3 mg/dL [facility] Specimen Urine - Urine, Voided Narrative Performed At Reference Range: No Normals [facility] Performing Organization Address City/[facility]/Zipcode Phone Number [address] * Urinalysis w/Microscopic (09/15/2018 8:59 AM MEDICATION COORDINATOR) Color, UA Yellow [facility] Clarity, UA Clear [facility] Specific [place], UA 1.007 1.001 - 1.035 [facility] pH, UA 7.5 5.0 - 8.0 [facility] Protein, UA 20 mg/dL (A) Negative [facility] Glucose, UA Negative Negative [facility] Ketones, UA Negative Negative [facility] Bilirubin, UA Negative Negative [facility] Blood, UA Moderate (A) Negative [facility] Nitrite, UA Negative Negative [facility] Leukocytes, UA Moderate (A) Negative [facility] Urobilinogen, UA 0.2 0.2 - 1.0 mg/dL [facility] RBC, UA 12 /HPF [facility] WBC, UA 11 /HPF [facility] Bacteria, UA Rare [facility] Crystals, Urine Rare [facility] Specimen Source Urine, Voided [facility] Specimen Urine - Urine, Voided Performing Organization Address City/[facility]/Zipcode Phone Number [facility] [address] [place] [address] [facility] * Prealbumin (09/14/2018 3:04 PM MEDICATION COORDINATOR) Prealbumin 15Comment: Specimen slightly 14 - 45 mg/dL [facility] hemolyzed [facility] Specimen Blood - Arm, Left Performing Organization Address [facility]/Zipcode Phone Number [facility] [address] [place] [address] [facility] * Hemoglobin A1c (09/13/2018 5:29 AM MEDICATION COORDINATOR) Hemoglobin A1C 6.1 4.3 - 6.1 % [facility] Specimen Blood Performing Organization Address [facility] Phone Number [facility] [address] [place] [address] * CT abdomen/pelvis with IV contrast (09/11/2018 10:32 AM MEDICATION COORDINATOR) Only the most recent of 3 results within the time period is included. Narrative Performed At FINAL REPORT [place] CT abdomen and pelvis with contrast History: Abdominal pain and fever. Abscess suspected Comparison: 09/04/2018 Technique: serial axial imaging was performed following up to 100cc of non ionic iodinated intravenous contrast as per departmental protocol.Multiplanar images are reconstructed and reviewed when indicated. This CT examination is performed using one or more of the following dose reduction techniques: Automated exposure control, adjustment of the mA and /or kV according to patient size, and/or use of iterative reconstruction technique. Findings: Small bilateral pleural effusions, without significant change. Unremarkable appearance of the pancreas. There are subtle areas of focal decreased attenuation within the peripheral spleen which appear unchanged from the prior study. Unremarkable appearance of liver and gallbladder. Mild bilateral hydronephrosis is noted, unchanged from the previous examination. This is secondary to a large, complex solid/cystic mass within the central pelvis which demonstrates no significant change in size. . Unchanged right lower quadrant fluid collection with percutaneous drainage catheter in place. The catheter terminates at the anteroinferior margin of the collection. No new fluid collection is seen. There is a small amount of free fluid throughout the abdomen and pelvis. No small or large bowel obstruction.No apparent bowel wall thickening.Again seen is a left lower quadrant enterostomy. No lymphadenopathy is seen. No abdominal aortic aneurysm. No aggressive osseous lesion. Impression: 1. Unchanged right lower quadrant fluid collection, with percutaneous drainage catheter terminating at the anteroinferior margin. 2. No new fluid collection is seen. 3. Unchanged mild bilateral hydronephrosis secondary to a large complex central pelvic mass. 4. Unchanged small bilateral pleural effusions. Signed: John Moreno MD Report Verified Date/Time:09/11/2018 10:48:56 Reading Location: [facility] Diagnostic Imaging Reading Room - [place] [id number] Procedure Note Interface, External Ris In - 09/11/2018 10:51 AM MEDICATION COORDINATOR FINAL REPORT CT abdomen and pelvis with contrast History: Abdominal pain and fever. Abscess suspected Comparison: 09/04/2018 Technique: serial axial imaging was performed following up to 100cc of non ionic iodinated intravenous contrast as per departmental protocol. Multiplanar images are reconstructed and reviewed when indicated. This CT examination is performed using one or more of the following dose reduction techniques: Automated exposure control, adjustment of the mA and /or kV according to patient size, and/or use of iterative reconstruction technique. Findings: Small bilateral pleural effusions, without significant change. Unremarkable appearance of the pancreas. There are subtle areas of focal decreased attenuation within the peripheral spleen which appear unchanged from the prior study. Unremarkable appearance of liver and gallbladder. Mild bilateral hydronephrosis is noted, unchanged from the previous examination. This is secondary to a large, complex solid/cystic mass within the central pelvis which demonstrates no significant change in size. . Unchanged right lower quadrant fluid collection with percutaneous drainage catheter in place. The catheter terminates at the anteroinferior margin of the collection. No new fluid collection is seen. There is a small amount of free fluid throughout the abdomen and pelvis. No small or large bowel obstruction. No apparent bowel wall thickening. Again seen is a left lower quadrant enterostomy. No lymphadenopathy is seen. No abdominal aortic aneurysm. No aggressive osseous lesion. Impression: 1. Unchanged right lower quadrant fluid collection, with percutaneous drainage catheter terminating at the anteroinferior margin. 2. No new fluid collection is seen. 3. Unchanged mild bilateral hydronephrosis secondary to a large complex central pelvic mass. 4. Unchanged small bilateral pleural effusions. Signed: John Moreno MD Report Verified Date/Time: 09/11/2018 10:48:56 Reading Location: [facility] Diagnostic Imaging Reading Room - [place] [address] Performing Organization Address City/State/Zipcode Phone Number [facility] * TRANSFUSION SERVICE REPORT - SCAN (09/04/2018 6:01 PM MEDICATION COORDINATOR) Only the most recent of 4 results within the time period is included. Narrative Performed At * Prepare Leuko-Red RBC (09/03/2018 11:54 PM MEDICATION COORDINATOR) Only the most recent of 2 results within the time period is included. CROSSMATCH COMPATIBLE SAFETRACE TX Unit ABO A Pos SAFETRACE TX UNIT NUMBER [id number] SAFETRACE TX Status TX_TIMEINCHART SAFETRACE TX Blood Bank Product RED BLOOD CELLS SAFETRACE TX PRODUCT CODE [id number] SAFETRACE [place] Specimen Other Performing Organization Address City/Advanced [facility] Phone Number [place] * Blood gas, arterial (09/03/2018 4:46 AM MEDICATION COORDINATOR) Only the most recent of 16 results within the time period is included. pH, Arterial 7.52 (H) 7.35 - 7.45 [facility] pCO2, Arterial 43 35 - 45 mmHg [facility] pO2, Arterial 93 (H) 80 - 90 mmHg [facility] O2 Sat, Arterial 97.6 (H) 96.0 - 97.0 % [facility] HCO3, Arterial 34 (H) 21 - 29 mmol/L [facility] Base Excess, Arterial 10.5 (H) -2.0 - 3.0 mmol/L [facility] Patient Temperature 37.5 C [facility] FIO2 55.0 % [facility] Specimen Blood, Arterial - Arm, Right Performing Organization Address City/State/Zipcode Phone Number [facility] [address] [place] [address] [phone] [place] [address] * Transfuse Leuko-Red RBC (09/02/2018 10:58 AM MEDICATION COORDINATOR) Only the most recent of 2 results within the time period is included. * Type and screen, automated (09/02/2018 6:22 AM MEDICATION COORDINATOR) Only the most recent of 3 results within the time period is included. ABO/RH AUTOMATED (BEAKER) A POSITIVE [facility] Ab Scrn NEGATIVE [facility] Specimen Blood Performing Organization Address City/[facility]/[place] [phone] [address] * XR abdomen / KUB 1 view (09/01/2018 7:18 PM MEDICATION COORDINATOR) Only the most recent of 3 results within the time period is included. Narrative Performed At FINAL REPORT [facility] TECHNIQUE: Single View of the Abdomen. INDICATION: NG tube position. COMPARISON: Radiograph from 08/27/2018. FINDINGS/IMPRESSION: The NG tube has its tip over the gastric body. The proximal small bowel is dilated with gas with decompression of the distal small bowel, most likely due to a small bowel obstruction. A drainage catheter overlies the pelvis. Small left pleural effusion with a left basilar opacity which could be atelectasis, aspiration, or pneumonia depending on clinical setting. Small right pleural effusion. Signed: Kaleb Carrion MD Report Verified Date/Time:09/01/2018 20:11:49 Reading Location: [facility] B1 C013W Consult Reading Room Procedure Note Interface, External Ris In - 09/01/2018 8:13 PM MEDICATION COORDINATOR FINAL REPORT TECHNIQUE: Single View of the Abdomen. INDICATION: NG tube position. COMPARISON: Radiograph from 08/27/2018. FINDINGS/IMPRESSION: The NG tube has its tip over the gastric body. The proximal small bowel is dilated with gas with decompression of the distal small bowel, most likely due to a small bowel obstruction. A drainage catheter overlies the pelvis. Small left pleural effusion with a left basilar opacity which could be atelectasis, aspiration, or pneumonia depending on clinical setting. Small right pleural effusion. Signed: Kaleb Carrion MD Report Verified Date/Time: 09/01/2018 20:11:49 Reading Location: [facility] B1 C013W Consult Reading Room Performing Organization Address City/State/Zipcode Phone Number GE RIS * ECHOCARDIOGRAM REPORT - SCAN (08/31/2018 9:21 PM MEDICATION COORDINATOR) Narrative Performed At * 2D Echo W/Doppler(CW/PW/Color) (08/31/2018 11:58 AM MEDICATION COORDINATOR) Ejection Fraction [facility] Narrative Performed At Transthoracic Echocardiography Report (TTE) [facility] ECHO [facility]ART[facility] Demographics [facility] Patient Name CHARITY,Date of Study 08/31/2018 LEONARDA [id number] Female Visit Number [id number] Room Number 6A11 Number Date of Birth1960Referring Physician Julieth Martinez Age58 year(s)Arborer Ladonna Rahman, [facility] AnalystAlex Physician ODILIA Cowart Procedure Type of Study TTE procedure:2DECHO W DOPPLER(CW/PW/COLOR) (STAT) Indications:Respiratory Failure. Clinical History HGB 7.6 HCT 25.5 % DM, HLD, HTN, Cancer, Sepsis, Resp. failure, Smoker Height: 61 inches Weight: 87.09 kg (192 lbs) BSA: 1.86 m^2 BMI: 36.28 kg/m^2 HR: 86 bpm BP: 130/73 mmHg Summary Normal left ventricular chamber size. Normal wall thickness. Normal overall left ventricular systolic function. No apparent segmental wall motion abnormalities. Estimated LVEF by qualitative assessment is normal (55-60%) . No evidence of pericardial effusion. The estimated RA pressure by IVC dynamics 5-10mmHg . Normal right ventricle structure and function. Signature Findings Technical Quality: Technically adequate exam. Left Ventricle Normal left ventricular chamber size. Normal wall thickness. Normal overall left ventricular systolic function. No apparent segmental wall motion abnormalities. Estimated LVEF by qualitative assessment is normal (55-60%) . Left AtriumLA size is severely enlarged (>48 ml/m2) . Right VentricleNormal right ventricle structure and function. Right Atrium Normal right atrium. Aortic Valve Mild AoV cusp thickening. Mitral Valve Mild MV leaflet thickening. Mild mitral regurgitation. Tricuspid ValveA trace of tricuspid regurgitation. Unable to estimate peak systolic PA pressure; inadequate TR velocity signal. Pulmonic Valve Normal PV structure and function by limited views and Doppler. AortaAortic root size (SInus of Valsalva diameter) is normal . PericardiumNo evidence of pericardial effusion. IVC/SVC/PA/PV/PleuralThe estimated RA pressure by IVC dynamics 5-10mmHg . Chambers/Structures Left Atrium LA Dimension: 3.63 cmLA Area: 17.31 cm^2 LA Volume: 50.66 ml LA Vol. Index: 27 ml/m^2 Left Ventricle LVIDd: 4.6 cm LV Septum Diastolic: 0.88 cm LV PW Diastolic: 0.91 cm LVEDV Bethea's:116.74 ml LVESV Bethea's:48.87 ml LVEF Bethea's: 58.1 %LVEDVI: 63 ml/m^2 LVESVI: 26 ml/m^2 LVOT Diameter: 2.13 cm Aorta Ao Root S of Duyen.: 3.06 cm Doppler/Quantitative Measurements LVOT Peak Velocity: 1.66 m/sPeak Gradient: 11.02 mmHg Mean Velocity: 0.94 m/sMean Gradient: 4.48 mmHg LVOT Diameter: 2.13 cm LVOT VTI: 27.55 cm LVOT Area: 3.56 cm^2 LVOT SV:98.12 ml LVOT CO: 8.44 l/minLVOT CI: 4.54 l/min/m^2 Procedure Note Interface, External Ris In - 08/31/2018 2:52 PM MEDICATION COORDINATOR Transthoracic Echocardiography Report (TTE) Demographics Patient Name CHARITY, Date of Study 08/31/2018 LEONARDA Gender Female Visit Number [id number] Race Room Number 6A11 Number Date of 1960 Referring Physician Julieth Martinez Age 58 year(s) Arborer Ladonna Rahman, [facility] Marquetry Worker Bob Kidd Interpreting Physician ODILIA Ryan Procedure Type of Study TTE procedure:2DECHO W DOPPLER(CW/PW/COLOR) (STAT) Indications:Respiratory Failure. Clinical History HGB 7.6 HCT 25.5 % DM, HLD, HTN, Cancer, Sepsis, Resp. failure, Smoker Height: 61 inches Weight: 87.09 kg (192 lbs) BSA: 1.86 m^2 BMI: 36.28 kg/m^2 HR: 86 bpm BP: 130/73 mmHg Summary Normal left ventricular chamber size. Normal wall thickness. Normal overall left ventricular systolic function. No apparent segmental wall motion abnormalities. Estimated LVEF by qualitative assessment is normal (55-60%) . No evidence of pericardial effusion. The estimated RA pressure by IVC dynamics 5-10mmHg . Normal right ventricle structure and function. Signature Findings Technical Quality: Technically adequate exam. Left Ventricle Normal left ventricular chamber size. Normal wall thickness. Normal overall left ventricular systolic function. No apparent segmental wall motion abnormalities. Estimated LVEF by qualitative assessment is normal (55-60%) . Left Atrium LA size is severely enlarged (>48 ml/m2) . Right Ventricle Normal right ventricle structure and function. Right Atrium Normal right atrium. Aortic Valve Mild AoV cusp thickening. Mitral Valve Mild MV leaflet thickening. Mild mitral regurgitation. Tricuspid Valve A trace of tricuspid regurgitation. Unable to estimate peak systolic PA pressure; inadequate TR velocity signal. Pulmonic Valve Normal PV structure and function by limited views and Doppler. Aorta Aortic root size (SInus of Valsalva diameter) is normal . Pericardium No evidence of pericardial effusion. IVC/SVC/PA/PV/Pleural The estimated RA pressure by IVC dynamics 5-10mmHg . Chambers/Structures Left Atrium LA Dimension: 3.63 cm LA Area: 17.31 cm^2 LA Volume: 50.66 ml LA Vol. Index: 27 ml/m^2 Left Ventricle LVIDd: 4.6 cm LV Septum Diastolic: 0.88 cm LV PW Diastolic: 0.91 cm LVEDV Bethea's:116.74 ml LVESV Bethea's:48.87 ml LVEF Bethea's: 58.1 % LVEDVI: 63 ml/m^2 LVESVI: 26 ml/m^2 LVOT Diameter: 2.13 cm Aorta Ao Root S of Duyen.: 3.06 cm Doppler/Quantitative Measurements LVOT Peak Velocity: 1.66 m/s Peak Gradient: 11.02 mmHg Mean Velocity: 0.94 m/s Mean Gradient: 4.48 mmHg LVOT Diameter: 2.13 cm LVOT VTI: 27.55 cm LVOT Area: 3.56 cm^2 LVOT SV:98.12 ml LVOT CO: 8.44 l/min LVOT CI: 4.54 l/min/m^2 Performing Organization Address City/State/Zipcode Phone Number [facility] * Blood gas, venous (08/31/2018 3:40 AM MEDICATION COORDINATOR) Only the most recent of 3 results within the time period is included. pH, Merlin 7.49 (H) 7.32 - 7.42 [facility] pCO2, Merlin 53 (H) 41 - 51 mmHg [facility] pO2, Merlin 39 25 - 40 mmHg [facility] O2 Sat, Merlin 77.9 (H) 40.0 - 70.0 % [facility] HCO3, Merlin 39 (H) 21 - 29 mmol/L [facility] Base Excess, Merlin 13.9 (H) -2.0 - 3.0 mmol/L [facility] Patient Temperature 36.5 C [facility] FIO2 100.0 % [facility] Specimen Blood - Central Venous Line Performing Organization Address City/State/Zipcode Phone Number [facility] [address] [place] [address] MED[facility]ENTER * Manual Differential (08/30/2018 3:52 AM MEDICATION COORDINATOR) Only the most recent of 6 results within the time period is included. % Neutros 86 % [facility] % Lymphs 4 % [facility] % Monos 5 % [facility] % Eos 3 % [facility] % Bands 2 0 - 10 % [facility] # Neutros 20.47 (H) 1.56 - 6.13 K/ul [facility] # Lymphs 0.95 (L) 1.18 - 3.74 K/ul [facility] # Monos 1.19 (H) 0.24 - 0.36 K/uL [facility] # Eos 0.71 (H) 0.04 - 0.36 K/uL [facility] # Bands 0.48 0.00 - 0.80 K/uL [facility] Total Counted 100 [facility] nRBC (manual) 1 (H) 0 - 0 /100 WBC [facility] WBC Morphology Normal [facility] Platelet Morphology Normal [facility] Hypochromia 1+ few [facility] Anisocytosis 2+ moderate [facility] Microcytes 2+ moderate [facility] Artifact Present [facility] Platelet Conc Increased [facility] Specimen Blood - Arm, Left Narrative Performed At Received comment: [facility] User comments: [facility] Slide comments: Performing Organization Address City/[facility] Servicescode Phone Number [address] [address] [facility] * Calcium, Ionized (08/29/2018 4:08 AM MEDICATION COORDINATOR) Only the most recent of 2 results within the time period is included. Calcium, Ion 1.32 (H) 1.12 - 1.27 mmol/L [facility] pH, Blood 7.42 [facility] Specimen Blood - Arm, Right Performing Organization Address [facility] Phone Number [address] [address] [facility] * Triglycerides (08/29/2018 4:08 AM MEDICATION COORDINATOR) Triglycerides 98 mg/dL [facility] Specimen Blood - Arm, Right Narrative Performed At TRIGLYCERIDE REFERENCE RANGE [facility] Low Risk<150 [facility] Borderline Risk 150-199 High [id number] Very High Risk >=500 Performing Organization Address City/[facility] Servicescode Phone Number [address] [address] [facility] * Vancomycin level, trough (08/25/2018 9:14 PM MEDICATION COORDINATOR) Only the most recent of 2 results within the time period is included. Vancomycin Tr 16.9 10.0 - 20.0 ug/mL [facility] Specimen Blood - Line, Arterial Performing Organization Address City/[facility]/Zipcode Phone Number [address] [address] [facility] * Sputum Culture + Gram Stain (08/25/2018 1:02 PM MEDICATION COORDINATOR) Result See comment [facility] Gram Stain Result 2+ White blood cells seen [facility] Gram Stain Result 0-5 epithelial cells [facility] Gram Stain Result 2+ yeast [facility] Specimen Sputum - Endotracheal Narrative Performed At 4+ yeast [facility] Performing Organization Address City/[facility] [place] [address] [facility] * Blood culture (08/25/2018 1:01 PM MEDICATION COORDINATOR) Only the most recent of 4 results within the time period is included. Result No growth in 5 days [facility] Specimen Blood - Line, Venous Performing Organization Address City/[facility] Servicescode Phone Number [address] [address] [facility] * CBC (Hemogram only) (08/22/2018 8:16 PM MEDICATION COORDINATOR) WBC 11.3 (H) 3.5 - 10.5 K/L [facility] RBC 3.98 3.93 - 5.22 M/L [facility] Hemoglobin 9.6 (L) 11.2 - 15.7 GM/DL [facility] Hematocrit 32.2 (L) 34.1 - 44.9 % [facility] MCV 80.9 79.4 - 94.8 fL [facility] MCH 24.1 (L) 25.6 - 32.2 pg [facility] MCHC 29.8 (L) 32.2 - 35.5 GM/DL [facility] RDW 16.7 (H) 11.7 - 14.4 % [facility] Platelets 525 (H) 150 - 450 K/CU MM [facility] MPV 10.1 9.4 - 12.3 fL [facility] nRBC 0 0 - 0 /100 WBC [facility] Specimen Blood Performing Organization Address City/[facility] Servicescode Phone Number [address] [address] [facility] * Anaerobic culture (08/22/2018 5:11 PM MEDICATION COORDINATOR) Result BACTEROIDES THETAIOTAOMICRON [facility] () [facility] Result ANAEROBIC GRAM-POSITIVE [facility] BACILLUS (A)Comment: No [facility] further workup performed Specimen Other - Abdomen Performing Organization Address City/[facility] Servicescode Phone Number [address] [address] [facility] * Surgically obtained culture + gram stain (08/22/2018 5:11 PM MEDICATION COORDINATOR) Result ENTEROBACTER CLOACAE COMPLEX [facility] () [facility] Result ESCHERICHIA COLI (A) [facility] Result HELIO ALBICANS (A) [facility] Gram Stain Result 3+ WBCs [facility] Gram Stain Result 1+ gram positive rods [facility] Gram Stain Result <1+ budding yeast [facility] Specimen Tissue - Abdomen Antibiotic Method Susceptibility Organism Amikacin <=2: Susceptible Enterobacter cloacae complex Aztreonam <=1: Susceptible Enterobacter cloacae complex Cefepime <=1: Susceptible Enterobacter cloacae complex Cefoxitin 16: Resistant Enterobacter cloacae complex Ceftazidime <=1: Susceptible Enterobacter cloacae complex Ceftriaxone <=1: Susceptible Enterobacter cloacae complex Ertapenem <=0.5: Susceptible Enterobacter cloacae complex Gentamicin <=1: Susceptible Enterobacter cloacae complex Levofloxacin <=0.12: Susceptible Enterobacter cloacae complex Meropenem <=0.25: Susceptible Enterobacter cloacae complex Piperacillin + Tazobactam <=4: Susceptible Enterobacter cloacae complex Tetracycline <=1: Susceptible Enterobacter cloacae complex Tobramycin <=1: Susceptible Enterobacter cloacae complex Trimethoprim + Sulfamethoxazole <=20: Susceptible Enterobacter cloacae complex Amikacin <=2: Susceptible Escherichia coli Ampicillin + Sulbactam >=32: Resistant Escherichia coli Aztreonam <=1: Susceptible Escherichia coli Cefepime <=1: Susceptible Escherichia coli Cefoxitin <=4: Susceptible Escherichia coli Ceftazidime <=1: Susceptible Escherichia coli Ceftriaxone <=1: Susceptible Escherichia coli Ertapenem <=0.5: Susceptible Escherichia coli Gentamicin <=1: Susceptible Escherichia coli Levofloxacin >=8: Resistant Escherichia coli Meropenem <=0.25: Susceptible Escherichia coli Piperacillin + Tazobactam <=4: Susceptible Escherichia coli Tetracycline <=1: Susceptible Escherichia coli Tobramycin <=1: Susceptible Escherichia coli Trimethoprim + Sulfamethoxazole <=20: Susceptible Escherichia coli Performing Organization Address [facility] Phone Number [address] * Potassium-Stat Lab (08/22/2018 5:05 PM MEDICATION COORDINATOR) Potassium 4.3 3.6 - 5.5 meq/L [facility] Specimen Blood, Arterial Performing Organization Address [facility] Phone Number [address] * Sodium Na-Stat Lab (08/22/2018 5:05 PM MEDICATION COORDINATOR) Sodium 134 (L) 135 - 148 meq/L [facility] Specimen Blood, Arterial Performing Organization Address [facility] Phone Number [address] * Glucose-Stat Lab (08/22/2018 5:05 PM MEDICATION COORDINATOR) Glucose 159 (H) 70 - 110 mg/dL [facility] Specimen Blood, Arterial Performing Organization Address [facility] Phone Number [place] [phone] [place] [address] * HGB/HCT (H&H)-Stat Lab (08/22/2018 5:05 PM MEDICATION COORDINATOR) Hemoglobin 9.2 (L) 12.0 - 15.0 g/dL [facility] Hematocrit 27.0 (L) 36.0 - 45.0 % [facility] Specimen Blood, Arterial Performing Organization Address City/[facility] Servicescode Phone Number [facility] [address] [place], [place] [address] [phone] [place] [address] * ABORH, manual (08/22/2018 4:15 PM MEDICATION COORDINATOR) ABO Grouping A [facility] Rh Factor POS [facility] Specimen Blood Performing Organization Address [facility] Servicescowv Phone Number [facility] [address] [place], [place] [address] [phone] [address] * ECG 12 lead (08/22/2018 3:31 AM MEDICATION COORDINATOR) Narrative Performed At Ventricular Rate 108 BPM GE MUSE Atrial Rate 108 BPM P-R Interval 146 ms QRS Duration 104 ms Q-T Interval 344 ms QTC Calculation(Bazett) 460 ms P L[place] 62 degrees R [place]odi 62 degrees T [place] 25 degrees Sinus tachycardia Borderline criteria for Possible Inferior infarct , age undetermined Prolonged QT Abnormal ECG No previous ECGs available Confirmed by Ramon RICARDO BASANT ([id number]) on 08/23/2018 12:43:57 PM Procedure Note Interface, External Ris In - 08/23/2018 12:44 PM MEDICATION COORDINATOR Ventricular Rate 108 BPM Atrial Rate 108 BPM P-R Interval 146 ms QRS Duration 104 ms Q-T Interval 344 ms QTC Calculation(Bazett) 460 ms P Lodi 62 degrees R [place] 62 degrees T [place] 25 degrees Sinus tachycardia Borderline criteria for Possible Inferior infarct , age undetermined Prolonged QT Abnormal ECG No previous ECGs available Confirmed by Ramon RICARDO BASANT ([id number]) on 08/23/2018 12:43:57 PM Performing Organization Address City/[facility] Services[facility] Phone Number [facility] * Lactic acid, venous, whole blood (08/22/2018 3:04 AM MEDICATION COORDINATOR) Lactate, Venous 0.8 0.5 - 2.2 mmol/L [facility] Specimen Blood - Central Venous Line Performing Organization Address City/State/Zipcode Phone Number [facility] [address] [place], [place] [phone] MEDICAL [facility]ENTER after 10/24/2017 Insurance Payer Benefit Subscriber ID Type Phone Address Plan / Group [facility] HMO xxxxxxxxx HMO/POS CARE POS SELECT CHOICE Advance Directives For more information, please contact: [facility] [address] [place] [address] Date Inactivated Comments Code Status Date Activated 09/26/2018 6:04 PM Full Code 08/22/2018 2:32 AM This code status was determined by: Patient
--- OUTSIDE RECORDS SUMMARY | 2018-10-25 18:59 | XMS REPORT ---
[facility] Address Unknown Phone Unavailable Care Team Providers Care Manufacturing Engineer Name Role Phone IDA LEONE Unavailable Unavailable Martin MURRY Unavailable Unavailable Payers Payer Name Policy Type Policy Number Effective Date Expiration Date Problems This patient has no known problems. Allergies, Adverse Reactions, Alerts Allergy Name Allergy Type Status Severity Reaction(s) Onset Date Inactive Date Treating Clinician Comments No Known Allergies DA Active U 2018-08-16 00:00:00 Medications This patient has no known medications. Results Test Description Test Time Test Comments Text Results Atomic Results Result Comments FL, RACK PUSHER IN OR/30 MINUTE INCREMENTS 2018-10-03 16:55:00 Reason for exam:->cystoscopy / retrograde , pyelogram PROCEDURE PERFORMED IN O.R. - PLEASE REFER TO THE INTRAOPERATIVE REPORT. -GLUCOSE METER 2018-09-26 12:27:00 POC-GLUCOSE METER (BEAKER) (test mair=3599) 128 mg/dL 70-110 TESTED AT [place] [id number] [facility] [address] POCT-GLUCOSE [id number] 08:16:00* Test Item Value Reference Range Comments POC-GLUCOSE METER (BEAKER) (test ireh=3348) 98 mg/dL 70-110 TESTED AT [place] [id number] [facility] [address] RAD, CHEST, 1 VIEW, NON [id number] 08:13:00Reason for exam:->evaluation of pulmonary edemaShould this be performed at the bedside?->YesFINAL REPORT Chest one view. Clinical history: evaluation of pulmonary edema Comparison: 09/25/2018 Discussion: A frontal chest is provided. The cardiac and mediastinal contours are unremarkable allowing for portable technique. There is no pneumothorax, javed pulmonary edema, consolidation or significant pleural effusion. The bony structures are unremarkable. Signed: Josefa Dickeyeport Verified Date/Time: 09/26/2018 08:13:08 Reading Location: [facility] Radiology Reading Room C METABOLIC [id number] 06:33:00* Test Item Value Reference Range Comments SODIUM (BEAKER) (test oray=281) 133 meq/L 136-145 POTASSIUM (BEAKER) (test qydg=802) 3.5 meq/L 3.5-5.1 CHLORIDE (BEAKER) (test fdqd=009) 95 meq/L 98-107 CO2 (BEAKER) (test qxyx=088) 26 meq/L 22-29 BLOOD UREA NITROGEN (BEAKER) (test plic=599) 14 mg/dL 7-21 CREATININE (BEAKER) (test gclh=973) 0.70 mg/dL 0.57-1.25 GLUCOSE RANDOM (BEAKER) (test zubo=167) 89 mg/dL 70-105 CALCIUM (BEAKER) (test axcb=547) 12.1 mg/dL 8.4-10.2 EGFR (BEAKER) (test xuwv=7053) 86 mL/min/1.73 sq m ESTIMATED GFR IS NOT ACCURATE CREATININE CLEARANCE IN PREDICTING GLOMERULAR FILTRATION RATE. ESTIMATED GFR IS NOT APPLICABLE FOR DIALYSIS PATIENTS. [id number] 06:31:00* Test Item Value Reference Range Comments PHOSPHORUS (BEAKER) (test ppvk=121) 2.6 mg/dL 2.3-4.7 [id number] 06:31:00* Test Item Value Reference Range Comments MAGNESIUM (BEAKER) (test tiju=619) 1.7 mg/dL 1.6-2.6 [id number] 06:00:00* Test Item Value Reference Range Comments PROTIME (BEAKER) (test vrve=509) 14.8 seconds 11.7-14.7 INR (BEAKER) (test xgdu=604) 1.2 <=5.9 PARTIAL THROMBOPLASTIN TIME (BEAKER) (test fvun=848) 49.5 seconds 22.5-36.0 RECOMMENDED COUMADIN/WARFARIN INR THERAPY RANGESSTANDARD DOSE: 2.0 - 3.0 Inclu hola: PROPHYLAXIS for venous thrombosis, systemic embolization; TREATMENT for rodrigo ous thrombosis and/or pulmonary embolus.HIGH RISK: Target INR is 2.5-3.5 for pat ients with mechanical heart valves.CBC W/PLT COUNT & AUTO [id number] 05:53:00* Test Item Value Reference Range Comments WHITE BLOOD CELL COUNT (BEAKER) (test nhcm=256) 13.7 K/ L 3.5-10.5 RED BLOOD CELL COUNT (BEAKER) (test zahz=068) 4.50 M/ L 3.93-5.22 HEMOGLOBIN (BEAKER) (test dcwj=354) 10.6 GM/DL 11.2-15.7 HEMATOCRIT (BEAKER) (test gvnp=359) 35.2 % 34.1-44.9 MEAN CORPUSCULAR VOLUME (BEAKER) (test jaae=723) 78.2 fL 79.4-94.8 MEAN CORPUSCULAR HEMOGLOBIN (BEAKER) (test yfxz=898) 23.6 pg 25.6-32.2 MEAN CORPUSCULAR HEMOGLOBIN CONC (BEAKER) (test hjdf=125) 30.1 GM/DL 32.2-35.5 RED CELL DISTRIBUTION WIDTH (BEAKER) (test zkof=600) 20.1 % 11.7-14.4 PLATELET COUNT (BEAKER) (test fqxt=701) 531 K/CU MM 150-450 MEAN PLATELET VOLUME (BEAKER) (test vnqt=937) 9.5 fL 9.4-12.3 NUCLEATED RED BLOOD CELLS (BEAKER) (test pipe=586) 0 /100 WBC 0-0 NEUTROPHILS RELATIVE PERCENT (BEAKER) (test tchz=739) 72 % LYMPHOCYTES RELATIVE PERCENT (BEAKER) (test ulyk=539) 17 % MONOCYTES RELATIVE PERCENT (BEAKER) (test vbcy=161) 7 % EOSINOPHILS RELATIVE PERCENT (BEAKER) (test myjv=322) 2 % BASOPHILS RELATIVE PERCENT (BEAKER) (test aesf=906) 1 % NEUTROPHILS ABSOLUTE COUNT (BEAKER) (test ehjr=229) 9.91 K/ L 1.56-6.13 LYMPHOCYTES ABSOLUTE COUNT (BEAKER) (test cxwn=118) 2.35 K/ L 1.18-3.74 MONOCYTES ABSOLUTE COUNT (BEAKER) (test jtic=688) 0.99 K/ L 0.24-0.36 EOSINOPHILS ABSOLUTE COUNT (BEAKER) (test vxle=134) 0.25 K/ L 0.04-0.36 BASOPHILS ABSOLUTE COUNT (BEAKER) (test ykqi=746) 0.07 K/ L 0.01-0.08 IMMATURE GRANULOCYTES-RELATIVE PERCENT (BEAKER) (test vaul=2024) 1 % 0-1 POCT-GLUCOSE [id number] 21:37:00* Test Item Value Reference Range Comments POC-GLUCOSE METER (BEAKER) (test xwou=2299) 95 mg/dL 70-110 TESTED AT [address] [address] POCT-GLUCOSE [id number] 17:42:00* Test Item Value Reference Range Comments POC-GLUCOSE METER (BEAKER) (test iymi=6183) 163 mg/dL 70-110 TESTED AT [address] [address] POCT-GLUCOSE [id number] 12:48:00* Test Item Value Reference Range Comments POC-GLUCOSE METER (BEAKER) (test uzey=9562) 111 mg/dL 70-110 TESTED AT [address] [address] RAD, CHEST, 1 VIEW, NON [id number] 11:08:00Reason for exam:->evaluation of pulmonary edemaShould this be performed at the bedside?->YesFINAL REPORT AP view of the chest dated 09/25/2018 CLINICAL INFORMATION: evaluation of pulmonary edema Comment: Heart is normal in size. Pulmonary vasculature is unremarkable. Lungs are clear. No pulmonary infiltrate or pleural effusion is present. Impression: No active cardiopulmonary disease. Signed: Yoselyn Mckenna Verified Date/Time: 09/25/2018 11:08:48 Reading Location: [facility] Radiology Reading Room -GLUCOSE [id number] 07:56:00* Test Item Value Reference Range Comments POC-GLUCOSE METER (BEAKER) (test fpay=9351) 149 mg/dL 70-110 TESTED AT [facility] [address] [facility] [address] BASIC METABOLIC [id number] 06:08:00* Test Item Value Reference Range Comments SODIUM (BEAKER) (test kzuw=772) 133 meq/L 136-145 POTASSIUM (BEAKER) (test gwfm=111) 3.4 meq/L 3.5-5.1 CHLORIDE (BEAKER) (test surn=640) 95 meq/L 98-107 CO2 (BEAKER) (test wcbt=194) 27 meq/L 22-29 BLOOD UREA NITROGEN (BEAKER) (test xfwg=823) 16 mg/dL 7-21 CREATININE (BEAKER) (test suaq=987) 0.73 mg/dL 0.57-1.25 GLUCOSE RANDOM (BEAKER) (test khrv=996) 110 mg/dL 70-105 CALCIUM (BEAKER) (test xrqt=968) 11.9 mg/dL 8.4-10.2 EGFR (BEAKER) (test etbd=2821) 82 mL/min/1.73 sq m ESTIMATED GFR IS NOT ACCURATE CREATININE CLEARANCE IN PREDICTING GLOMERULAR FILTRATION RATE. ESTIMATED GFR IS NOT APPLICABLE FOR DIALYSIS PATIENTS. [id number] 06:06:00* Test Item Value Reference Range Comments PHOSPHORUS (BEAKER) (test lsfc=727) 3.2 mg/dL 2.3-4.7 [id number] 06:06:00* Test Item Value Reference Range Comments MAGNESIUM (BEAKER) (test rlnf=159) 1.2 mg/dL 1.6-2.6 [id number] 05:53:00* Test Item Value Reference Range Comments PROTIME (BEAKER) (test ztsk=967) 14.3 seconds 11.7-14.7 INR (BEAKER) (test gerc=268) 1.1 <=5.9 PARTIAL THROMBOPLASTIN TIME (BEAKER) (test wvkp=468) 52.7 seconds 22.5-36.0 RECOMMENDED COUMADIN/WARFARIN INR THERAPY RANGESSTANDARD DOSE: 2.0 - 3.0 Inclu hola: PROPHYLAXIS for venous thrombosis, systemic embolization; TREATMENT for rodrigo ous thrombosis and/or pulmonary embolus.HIGH RISK: Target INR is 2.5-3.5 for pat ients with mechanical heart valves.CBC W/PLT COUNT & AUTO [id number] 05:53:00* Test Item Value Reference Range Comments WHITE BLOOD CELL COUNT (BEAKER) (test pwby=125) 13.1 K/ L 3.5-10.5 RED BLOOD CELL COUNT (BEAKER) (test hcrz=193) 4.37 M/ L 3.93-5.22 HEMOGLOBIN (BEAKER) (test vkmt=676) 10.2 GM/DL 11.2-15.7 HEMATOCRIT (BEAKER) (test qbcf=849) 34.9 % 34.1-44.9 MEAN CORPUSCULAR VOLUME (BEAKER) (test wypp=682) 79.9 fL 79.4-94.8 MEAN CORPUSCULAR HEMOGLOBIN (BEAKER) (test gvok=813) 23.3 pg 25.6-32.2 MEAN CORPUSCULAR HEMOGLOBIN CONC (BEAKER) (test ymnh=148) 29.2 GM/DL 32.2-35.5 RED CELL DISTRIBUTION WIDTH (BEAKER) (test ithj=778) 20.0 % 11.7-14.4 PLATELET COUNT (BEAKER) (test eqzu=732) 556 K/CU MM 150-450 MEAN PLATELET VOLUME (BEAKER) (test bios=479) 9.6 fL 9.4-12.3 NUCLEATED RED BLOOD CELLS (BEAKER) (test uyop=932) 0 /100 WBC 0-0 NEUTROPHILS RELATIVE PERCENT (BEAKER) (test tvlu=566) 68 % LYMPHOCYTES RELATIVE PERCENT (BEAKER) (test xjgf=600) 21 % MONOCYTES RELATIVE PERCENT (BEAKER) (test xhef=354) 7 % EOSINOPHILS RELATIVE PERCENT (BEAKER) (test gwfl=861) 3 % BASOPHILS RELATIVE PERCENT (BEAKER) (test jnma=650) 1 % NEUTROPHILS ABSOLUTE COUNT (BEAKER) (test ppot=088) 8.89 K/ L 1.56-6.13 LYMPHOCYTES ABSOLUTE COUNT (BEAKER) (test lfam=081) 2.71 K/ L 1.18-3.74 MONOCYTES ABSOLUTE COUNT (BEAKER) (test yodu=543) 0.93 K/ L 0.24-0.36 EOSINOPHILS ABSOLUTE COUNT (BEAKER) (test vcbw=378) 0.38 K/ L 0.04-0.36 BASOPHILS ABSOLUTE COUNT (BEAKER) (test kcfj=973) 0.08 K/ L 0.01-0.08 IMMATURE GRANULOCYTES-RELATIVE PERCENT (BEAKER) (test vzcj=7413) 1 % 0-1 POCT-GLUCOSE [id number] 21:23:00* Test Item Value Reference Range Comments POC-GLUCOSE METER (BEAKER) (test mcdi=0754) 181 mg/dL 70-110 TESTED AT [address] [address] POCT-GLUCOSE [id number] 18:17:00* Test Item Value Reference Range Comments POC-GLUCOSE METER (BEAKER) (test mzai=6135) 199 mg/dL 70-110 TESTED AT [address] [address] POCT-GLUCOSE [id number] 12:57:00* Test Item Value Reference Range Comments POC-GLUCOSE METER (BEAKER) (test pggd=4661) 151 mg/dL 70-110 TESTED AT [address] [address] RAD, CHEST, 1 VIEW, NON [id number] 11:29:00Reason for exam:->evaluation of pulmonary edemaShould this be performed at the bedside?->YesFINAL REPORT History: Pulmonary edema Comparison: 09/23/2018 Findings: The lungs are clear. No pleural effusions or pneumothorax. The heart shadow is normal in size. The thoracic aorta is mildly tortuous. No skeletal abnormalities are visualized. Impression: No evidence of acute cardiopulmonary disease. Signed: Stephanie Madden [facility] Verified Date/Time: 09/24/2018 11:29:11 Reading Location: [address] Transitional Reading Room -GLUCOSE [id number] 08:43:00* Test Item Value Reference Range Comments POC-GLUCOSE METER (BEAKER) (test nvtm=7298) 125 mg/dL 70-110 TESTED AT [address] [address] BASIC METABOLIC [id number] 05:51:00* Test Item Value Reference Range Comments SODIUM (BEAKER) (test zniy=532) 134 meq/L 136-145 POTASSIUM (BEAKER) (test ejct=745) 3.5 meq/L 3.5-5.1 CHLORIDE (BEAKER) (test nhhh=263) 96 meq/L 98-107 CO2 (BEAKER) (test himm=265) 26 meq/L 22-29 BLOOD UREA NITROGEN (BEAKER) (test jsal=220) 16 mg/dL 7-21 CREATININE (BEAKER) (test ezce=009) 0.73 mg/dL 0.57-1.25 GLUCOSE RANDOM (BEAKER) (test sxrd=875) 103 mg/dL 70-105 CALCIUM (BEAKER) (test ffjl=272) 12.1 mg/dL 8.4-10.2 EGFR (BEAKER) (test kdnk=5721) 82 mL/min/1.73 sq m ESTIMATED GFR IS NOT ACCURATE CREATININE CLEARANCE IN PREDICTING GLOMERULAR FILTRATION RATE. ESTIMATED GFR IS NOT APPLICABLE FOR DIALYSIS PATIENTS. CBC W/PLT COUNT & AUTO [id number] 05:45:00* Test Item Value Reference Range Comments WHITE BLOOD CELL COUNT (BEAKER) (test yqfn=626) 12.3 K/ L 3.5-10.5 RED BLOOD CELL COUNT (BEAKER) (test ptrk=093) 4.55 M/ L 3.93-5.22 HEMOGLOBIN (BEAKER) (test kjle=569) 10.6 GM/DL 11.2-15.7 HEMATOCRIT (BEAKER) (test bbip=958) 36.1 % 34.1-44.9 MEAN CORPUSCULAR VOLUME (BEAKER) (test nkeo=838) 79.3 fL 79.4-94.8 MEAN CORPUSCULAR HEMOGLOBIN (BEAKER) (test bdsy=318) 23.3 pg 25.6-32.2 MEAN CORPUSCULAR HEMOGLOBIN CONC (BEAKER) (test krds=817) 29.4 GM/DL 32.2-35.5 RED CELL DISTRIBUTION WIDTH (BEAKER) (test hbme=877) 19.9 % 11.7-14.4 PLATELET COUNT (BEAKER) (test baej=437) 577 K/CU MM 150-450 MEAN PLATELET VOLUME (BEAKER) (test fzoa=579) 9.6 fL 9.4-12.3 NUCLEATED RED BLOOD CELLS (BEAKER) (test ousa=633) 0 /100 WBC 0-0 NEUTROPHILS RELATIVE PERCENT (BEAKER) (test uzgi=234) 68 % LYMPHOCYTES RELATIVE PERCENT (BEAKER) (test ejmq=868) 21 % MONOCYTES RELATIVE PERCENT (BEAKER) (test esig=939) 7 % EOSINOPHILS RELATIVE PERCENT (BEAKER) (test bygp=136) 3 % BASOPHILS RELATIVE PERCENT (BEAKER) (test laul=175) 1 % NEUTROPHILS ABSOLUTE COUNT (BEAKER) (test lrmp=075) 8.35 K/ L 1.56-6.13 LYMPHOCYTES ABSOLUTE COUNT (BEAKER) (test pten=112) 2.58 K/ L 1.18-3.74 MONOCYTES ABSOLUTE COUNT (BEAKER) (test khly=281) 0.90 K/ L 0.24-0.36 EOSINOPHILS ABSOLUTE COUNT (BEAKER) (test lvpt=301) 0.32 K/ L 0.04-0.36 BASOPHILS ABSOLUTE COUNT (BEAKER) (test ymrq=218) 0.07 K/ L 0.01-0.08 IMMATURE GRANULOCYTES-RELATIVE PERCENT (BEAKER) (test fffy=5353) 1 % 0-1 [id number] 05:38:00* Test Item Value Reference Range Comments PHOSPHORUS (BEAKER) (test krco=573) 3.2 mg/dL 2.3-4.7 [id number] 05:38:00* Test Item Value Reference Range Comments MAGNESIUM (BEAKER) (test zgwz=148) 1.1 mg/dL 1.6-2.6 [id number] 05:37:00* Test Item Value Reference Range Comments PROTIME (BEAKER) (test kkti=170) 14.6 seconds 11.7-14.7 INR (BEAKER) (test zlkb=606) 1.1 <=5.9 PARTIAL THROMBOPLASTIN TIME (BEAKER) (test fmra=987) 52.9 seconds 22.5-36.0 RECOMMENDED COUMADIN/WARFARIN INR THERAPY RANGESSTANDARD DOSE: 2.0 - 3.0 Inclu hola: PROPHYLAXIS for venous thrombosis, systemic embolization; TREATMENT for rodrigo ous thrombosis and/or pulmonary embolus.HIGH RISK: Target INR is 2.5-3.5 for pat ients with mechanical heart valves.POCT-GLUCOSE [id number] 21:34:00* Test Item Value Reference Range Comments POC-GLUCOSE METER (BEAKER) (test fsyq=9478) 120 mg/dL 70-110 TESTED AT [address] [address] POCT-GLUCOSE [id number] 17:38:00* Test Item Value Reference Range Comments POC-GLUCOSE METER (BEAKER) (test yhih=6642) 176 mg/dL 70-110 TESTED AT [address] [address] POCT-GLUCOSE [id number] 13:51:00* Test Item Value Reference Range Comments POC-GLUCOSE METER (BEAKER) (test ojos=2947) 121 mg/dL 70-110 TESTED AT [address] [address] URINALYSIS W/ REFLEX URINE [id number] 12:38:00* Test Item Value Reference Range Comments COLOR (BEAKER) (test mzpg=921) Yellow CLARITY (BEAKER) (test rzly=147) Hazy SPECIFIC GRAVITY UA (BEAKER) (test uzhu=143) 1.014 1.001-1.035 PH UA (BEAKER) (test ompk=214) 6.0 5.0-8.0 PROTEIN UA (BEAKER) (test jzsk=371) 70 mg/dL Negative GLUCOSE UA (BEAKER) (test gtvn=356) Negative Negative KETONES UA (BEAKER) (test uetd=604) Negative Negative BILIRUBIN UA (BEAKER) (test ouvf=265) Negative Negative BLOOD UA (BEAKER) (test lzym=680) Large Negative NITRITE UA (BEAKER) (test aauv=375) Negative Negative LEUKOCYTE ESTERASE UA (BEAKER) (test czwy=453) Large Negative UROBILINOGEN UA (BEAKER) (test bfwi=968) 0.2 mg/dL 0.2-1.0 RBC UA (BEAKER) (test jdgs=977) 251 /HPF WBC UA (BEAKER) (test enxg=904) 87 /HPF BACTERIA (BEAKER) (test dnnj=267) Rare SQUAMOUS EPITHELIAL (BEAKER) (test rbqv=718) < /HPF SOURCE(BEAKER) (test jtyj=0067) POCT-GLUCOSE [id number] 07:09:00* Test Item Value Reference Range Comments POC-GLUCOSE METER (BEAKER) (test dwdy=7828) 134 mg/dL 70-110 TESTED AT [address] [address] RAD, CHEST, 1 VIEW, NON [id number] 07:04:00Reason for exam:->evaluation of pulmonary edemaShould this be performed at the bedside?->YesFINAL REPORT RAD, CHEST, 1 VIEW, NON DEPT INDICATION: evaluation of pulmonary edema COMPARISON: Prior day's exam FINDINGS: Portable frontal view of the chest. IMPRESSION: Support Lines: None Lungs and pleura: No consolidation or significant interstitial congestion. There is no effusion or thoraxHeart and mediastinum: Stable contours. Additional findings: None. Signed: JR Prakash Robert MDReport Verified Date/Time: 09/23/2018 07:04:14 Reading Location: [address] Neuro Reading Room W/PLT COUNT & AUTO DIFFERENTIAL 2018-09-23 06:34:00* Test Item Value Reference Range Comments WHITE BLOOD CELL COUNT (BEAKER) (test bdhj=448) 13.4 K/ L 3.5-10.5 RED BLOOD CELL COUNT (BEAKER) (test vrhi=925) 4.35 M/ L 3.93-5.22 HEMOGLOBIN (BEAKER) (test rkmn=664) 10.0 GM/DL 11.2-15.7 HEMATOCRIT (BEAKER) (test oahx=502) 34.4 % 34.1-44.9 MEAN CORPUSCULAR VOLUME (BEAKER) (test huuz=598) 79.1 fL 79.4-94.8 MEAN CORPUSCULAR HEMOGLOBIN (BEAKER) (test ssax=831) 23.0 pg 25.6-32.2 MEAN CORPUSCULAR HEMOGLOBIN CONC (BEAKER) (test ttzc=842) 29.1 GM/DL 32.2-35.5 RED CELL DISTRIBUTION WIDTH (BEAKER) (test vsws=602) 19.4 % 11.7-14.4 PLATELET COUNT (BEAKER) (test ieiv=038) 581 K/CU MM 150-450 MEAN PLATELET VOLUME (BEAKER) (test ddyj=565) 9.3 fL 9.4-12.3 NUCLEATED RED BLOOD CELLS (BEAKER) (test nxja=161) 0 /100 WBC 0-0 NEUTROPHILS RELATIVE PERCENT (BEAKER) (test xynq=075) 68 % LYMPHOCYTES RELATIVE PERCENT (BEAKER) (test otjy=167) 20 % MONOCYTES RELATIVE PERCENT (BEAKER) (test pizo=485) 8 % EOSINOPHILS RELATIVE PERCENT (BEAKER) (test uktq=596) 3 % BASOPHILS RELATIVE PERCENT (BEAKER) (test xcyh=558) 1 % NEUTROPHILS ABSOLUTE COUNT (BEAKER) (test vksk=833) 9.11 K/ L 1.56-6.13 LYMPHOCYTES ABSOLUTE COUNT (BEAKER) (test qhmi=770) 2.61 K/ L 1.18-3.74 MONOCYTES ABSOLUTE COUNT (BEAKER) (test ghpd=944) 1.07 K/ L 0.24-0.36 EOSINOPHILS ABSOLUTE COUNT (BEAKER) (test hgmw=691) 0.36 K/ L 0.04-0.36 BASOPHILS ABSOLUTE COUNT (BEAKER) (test jpwd=419) 0.07 K/ L 0.01-0.08 IMMATURE GRANULOCYTES-RELATIVE PERCENT (BEAKER) (test stfp=9873) 1 % 0-1 BASIC METABOLIC [id number] 06:12:00* Test Item Value Reference Range Comments SODIUM (BEAKER) (test uahr=379) 134 meq/L 136-145 POTASSIUM (BEAKER) (test ptfd=229) 3.7 meq/L 3.5-5.1 CHLORIDE (BEAKER) (test qosl=962) 95 meq/L 98-107 CO2 (BEAKER) (test xuie=095) 28 meq/L 22-29 BLOOD UREA NITROGEN (BEAKER) (test taqy=150) 16 mg/dL 7-21 CREATININE (BEAKER) (test cywq=203) 0.72 mg/dL 0.57-1.25 GLUCOSE RANDOM (BEAKER) (test wqqf=725) 118 mg/dL 70-105 CALCIUM (BEAKER) (test coex=254) 12.0 mg/dL 8.4-10.2 EGFR (BEAKER) (test bwxw=8217) 83 mL/min/1.73 sq m ESTIMATED GFR IS NOT ACCURATE CREATININE CLEARANCE IN PREDICTING GLOMERULAR FILTRATION RATE. ESTIMATED GFR IS NOT APPLICABLE FOR DIALYSIS PATIENTS. [id number] 06:07:00* Test Item Value Reference Range Comments PHOSPHORUS (BEAKER) (test esvl=910) 3.1 mg/dL 2.3-4.7 [id number] 06:07:00* Test Item Value Reference Range Comments MAGNESIUM (BEAKER) (test takx=102) 1.4 mg/dL 1.6-2.6 [id number] 06:07:00* Test Item Value Reference Range Comments PROTIME (BEAKER) (test xumv=806) 15.1 seconds 11.7-14.7 INR (BEAKER) (test znva=545) 1.2 <=5.9 PARTIAL THROMBOPLASTIN TIME (BEAKER) (test jcek=021) 47.5 seconds 22.5-36.0 RECOMMENDED COUMADIN/WARFARIN INR THERAPY RANGESSTANDARD DOSE: 2.0 - 3.0 Inclu hola: PROPHYLAXIS for venous thrombosis, systemic embolization; TREATMENT for rodrigo ous thrombosis and/or pulmonary embolus.HIGH RISK: Target INR is 2.5-3.5 for pat ients with mechanical heart valves.POCT-GLUCOSE [id number] 21:43:00* Test Item Value Reference Range Comments POC-GLUCOSE METER (BEAKER) (test digw=0000) 195 mg/dL 70-110 TESTED AT [place] [id number] [facility] [address] POCT-GLUCOSE [id number] 17:06:00* Test Item Value Reference Range Comments POC-GLUCOSE METER (BEAKER) (test jtai=7612) 137 mg/dL 70-110 TESTED AT [place] [id number] [facility] [address] POCT-GLUCOSE [id number] 12:03:00* Test Item Value Reference Range Comments POC-GLUCOSE METER (BEAKER) (test kame=3798) 236 mg/dL 70-110 TESTED AT [address] [address] RAD, CHEST, 1 VIEW, NON [id number] 08:42:00Reason for exam:->evaluation of pulmonary edemaShould this be performed at the bedside?->YesFINAL REPORT CLINICAL HISTORY: pulmonary edema TECHNIQUE: 1 view of the chest. COMPARISON: 09/21/2018 IMPRESSION: There are no focal infiltrates or effusions. The cardiomediastinal silhouette is magnified by technique. The osseous structures appear intact. Signed: Yousif Kwok MDReport Verified Date/Time: 09/22/2018 08:42:00 Reading Location: [facility] Radiology Reading Room - GLUCOSE [id number] 08:28:00* Test Item Value Reference Range Comments POC-GLUCOSE METER (BEAKER) (test zyjr=8705) 158 mg/dL 70-110 TESTED AT [address] [address] [id number] 07:40:00* Test Item Value Reference Range Comments PHOSPHORUS (BEAKER) (test mfrr=022) 2.5 mg/dL 2.3-4.7 [id number] 07:40:00* Test Item Value Reference Range Comments MAGNESIUM (BEAKER) (test onsq=412) 1.3 mg/dL 1.6-2.6 [id number] 06:45:00* Test Item Value Reference Range Comments PROTIME (BEAKER) (test wjze=320) 14.5 seconds 11.7-14.7 INR (BEAKER) (test skvb=435) 1.1 <=5.9 PARTIAL THROMBOPLASTIN TIME (BEAKER) (test nqix=661) 49.1 seconds 22.5-36.0 RECOMMENDED COUMADIN/WARFARIN INR THERAPY RANGESSTANDARD DOSE: 2.0 - 3.0 Inclu hola: PROPHYLAXIS for venous thrombosis, systemic embolization; TREATMENT for rodrigo ous thrombosis and/or pulmonary embolus.HIGH RISK: Target INR is 2.5-3.5 for pat ients with mechanical heart valves.POCT-GLUCOSE [id number] 21:34:00* Test Item Value Reference Range Comments POC-GLUCOSE METER (BEAKER) (test gbeq=9173) 140 mg/dL 70-110 TESTED AT [address] [address] POCT-GLUCOSE [id number] 18:22:00* Test Item Value Reference Range Comments POC-GLUCOSE METER (BEAKER) (test exdd=6472) 156 mg/dL 70-110 TESTED AT [address] [address] POCT-GLUCOSE [id number] 11:57:00* Test Item Value Reference Range Comments POC-GLUCOSE METER (BEAKER) (test xpps=3682) 191 mg/dL 70-110 TESTED AT [address] [address] RAD, CHEST, 1 VIEW, NON [id number] 09:55:00Reason for exam:->evaluation of pulmonary edemaShould this be performed at the bedside?->YesFINAL REPORT CLINICAL HISTORY: Pulmonary edema TECHNIQUE: 1 view of the chest. COMPARISON: 09/20/2018 IMPRESSION: There are no focal infiltrates or effusions. The cardiomediastinal silhouette is magnified by technique. The osseous structures appear intact. Signed: Yousif Kwok MDReport Verified Date/Time: 09/21/2018 09:55:12 Reading Location: [facility] Radiology Reading Room C METABOLIC [id number] 08:15:00* Test Item Value Reference Range Comments SODIUM (BEAKER) (test khfw=421) 138 meq/L 136-145 POTASSIUM (BEAKER) (test zfzd=959) 3.6 meq/L 3.5-5.1 CHLORIDE (BEAKER) (test tayr=324) 99 meq/L 98-107 CO2 (BEAKER) (test rccy=844) 26 meq/L 22-29 BLOOD UREA NITROGEN (BEAKER) (test pyuv=836) 18 mg/dL 7-21 CREATININE (BEAKER) (test ohgp=661) 0.65 mg/dL 0.57-1.25 GLUCOSE RANDOM (BEAKER) (test psgt=048) 120 mg/dL 70-105 CALCIUM (BEAKER) (test mtnd=581) 11.1 mg/dL 8.4-10.2 EGFR (BEAKER) (test rnaf=9434) 93 mL/min/1.73 sq m ESTIMATED GFR IS NOT ACCURATE CREATININE CLEARANCE IN PREDICTING GLOMERULAR FILTRATION RATE. ESTIMATED GFR IS NOT APPLICABLE FOR DIALYSIS PATIENTS. [id number] 08:13:00* Test Item Value Reference Range Comments PHOSPHORUS (BEAKER) (test qguo=875) 2.0 mg/dL 2.3-4.7 [id number] 08:13:00* Test Item Value Reference Range Comments MAGNESIUM (BEAKER) (test xfrt=926) 1.7 mg/dL 1.6-2.6 POCT-GLUCOSE [id number] 07:44:00* Test Item Value Reference Range Comments POC-GLUCOSE METER (BEAKER) (test lwec=1978) 148 mg/dL 70-110 TESTED AT [facility] [address] [facility] [address] CBC W/PLT COUNT & AUTO [id number] 05:41:00* Test Item Value Reference Range Comments WHITE BLOOD CELL COUNT (BEAKER) (test arzc=567) 13.7 K/ L 3.5-10.5 RED BLOOD CELL COUNT (BEAKER) (test noke=589) 4.33 M/ L 3.93-5.22 HEMOGLOBIN (BEAKER) (test hyhj=125) 9.8 GM/DL 11.2-15.7 HEMATOCRIT (BEAKER) (test ayar=453) 34.3 % 34.1-44.9 MEAN CORPUSCULAR VOLUME (BEAKER) (test naai=575) 79.2 fL 79.4-94.8 MEAN CORPUSCULAR HEMOGLOBIN (BEAKER) (test ezod=489) 22.6 pg 25.6-32.2 MEAN CORPUSCULAR HEMOGLOBIN CONC (BEAKER) (test khnc=405) 28.6 GM/DL 32.2-35.5 RED CELL DISTRIBUTION WIDTH (BEAKER) (test wvet=352) 18.6 % 11.7-14.4 PLATELET COUNT (BEAKER) (test doni=429) 634 K/CU MM 150-450 MEAN PLATELET VOLUME (BEAKER) (test vfbj=191) 9.6 fL 9.4-12.3 NUCLEATED RED BLOOD CELLS (BEAKER) (test vflu=071) 0 /100 WBC 0-0 NEUTROPHILS RELATIVE PERCENT (BEAKER) (test hjxd=768) 76 % LYMPHOCYTES RELATIVE PERCENT (BEAKER) (test rlrz=591) 14 % MONOCYTES RELATIVE PERCENT (BEAKER) (test nszj=842) 8 % EOSINOPHILS RELATIVE PERCENT (BEAKER) (test yzqj=187) 1 % BASOPHILS RELATIVE PERCENT (BEAKER) (test kxxt=410) 0 % NEUTROPHILS ABSOLUTE COUNT (BEAKER) (test guhd=630) 10.33 K/ L 1.56-6.13 LYMPHOCYTES ABSOLUTE COUNT (BEAKER) (test znod=035) 1.95 K/ L 1.18-3.74 MONOCYTES ABSOLUTE COUNT (BEAKER) (test oojf=397) 1.04 K/ L 0.24-0.36 EOSINOPHILS ABSOLUTE COUNT (BEAKER) (test xzzs=292) 0.18 K/ L 0.04-0.36 BASOPHILS ABSOLUTE COUNT (BEAKER) (test dqqs=481) 0.06 K/ L 0.01-0.08 IMMATURE GRANULOCYTES-RELATIVE PERCENT (BEAKER) (test ovxf=3351) 1 % 0-1 [id number] 05:24:00* Test Item Value Reference Range Comments PROTIME (BEAKER) (test jasi=793) 14.7 seconds 11.7-14.7 INR (BEAKER) (test nsgu=025) 1.1 <=5.9 PARTIAL THROMBOPLASTIN TIME (BEAKER) (test hqem=415) 48.5 seconds 22.5-36.0 RECOMMENDED COUMADIN/WARFARIN INR THERAPY RANGESSTANDARD DOSE: 2.0 - 3.0 Inclu hola: PROPHYLAXIS for venous thrombosis, systemic embolization; TREATMENT for rodrigo ous thrombosis and/or pulmonary embolus.HIGH RISK: Target INR is 2.5-3.5 for pat ients with mechanical heart valves.POCT-GLUCOSE [id number] 21:35:00* Test Item Value Reference Range Comments POC-GLUCOSE METER (BEAKER) (test niqc=3588) 183 mg/dL 70-110 TESTED AT [facility] [address] [facility] [address] POCT-GLUCOSE [id number] 17:52:00* Test Item Value Reference Range Comments POC-GLUCOSE METER (BEAKER) (test imzg=2707) 110 mg/dL 70-110 TESTED AT [facility] [address] [facility] [address] POCT-GLUCOSE [id number] 12:37:00* Test Item Value Reference Range Comments POC-GLUCOSE METER (BEAKER) (test gskz=7889) 126 mg/dL 70-110 TESTED AT [place] [id number] [facility] [address] RAD, CHEST, 1 VIEW, NON [id number] 10:09:00Reason for exam:->evaluation of pulmonary edemaShould this be performed at the bedside?->YesFINAL REPORT CLINICAL HISTORY: pulmonary edema TECHNIQUE: 1 view of the chest. COMPARISON: 09/19/2018 IMPRESSION: There is no pulmonary edema. There are no focal infiltrates or effusions. The cardiomediastinal silhouette is magnified by technique. The osseous structures appear intact. There is a partially imaged left upper quadrant pigtail catheter. Signed: Yousif Kwok MDReport Verified Date/Time: 09/20/2018 10:09:07 Reading Location: [facility] Radiology Reading Room -GLUCOSE [id number] 09:38:00* Test Item Value Reference Range Comments POC-GLUCOSE METER (BEAKER) (test xwfa=7403) 139 mg/dL 70-110 TESTED AT [facility] [address] [facility] [address] URINE [id number] 07:35:00* Test Item Value Reference Range Comments CULTURE (BEAKER) (test alzl=6020) No growth [id number] 06:40:00* Test Item Value Reference Range Comments PHOSPHORUS (BEAKER) (test ntlb=570) 2.8 mg/dL 2.3-4.7 [id number] 06:40:00* Test Item Value Reference Range Comments MAGNESIUM (BEAKER) (test hzub=427) 1.1 mg/dL 1.6-2.6 BASIC METABOLIC [id number] 06:40:00* Test Item Value Reference Range Comments SODIUM (BEAKER) (test zwlg=741) 136 meq/L 136-145 POTASSIUM (BEAKER) (test xrel=961) 3.9 meq/L 3.5-5.1 CHLORIDE (BEAKER) (test dyir=859) 98 meq/L 98-107 CO2 (BEAKER) (test dzxj=142) 28 meq/L 22-29 BLOOD UREA NITROGEN (BEAKER) (test lica=471) 23 mg/dL 7-21 CREATININE (BEAKER) (test eniw=292) 0.74 mg/dL 0.57-1.25 GLUCOSE RANDOM (BEAKER) (test rqol=151) 131 mg/dL 70-105 CALCIUM (BEAKER) (test xfvk=497) 10.6 mg/dL 8.4-10.2 EGFR (BEAKER) (test edzi=1105) 80 mL/min/1.73 sq m ESTIMATED GFR IS NOT ACCURATE CREATININE CLEARANCE IN PREDICTING GLOMERULAR FILTRATION RATE. ESTIMATED GFR IS NOT APPLICABLE FOR DIALYSIS PATIENTS. CBC W/PLT COUNT & AUTO [id number] 05:56:00* Test Item Value Reference Range Comments WHITE BLOOD CELL COUNT (BEAKER) (test pgam=591) 10.6 K/ L 3.5-10.5 RED BLOOD CELL COUNT (BEAKER) (test ycur=941) 4.12 M/ L 3.93-5.22 HEMOGLOBIN (BEAKER) (test htbz=055) 9.6 GM/DL 11.2-15.7 HEMATOCRIT (BEAKER) (test ypmu=595) 32.0 % 34.1-44.9 MEAN CORPUSCULAR VOLUME (BEAKER) (test ncin=585) 77.7 fL 79.4-94.8 MEAN CORPUSCULAR HEMOGLOBIN (BEAKER) (test igdp=636) 23.3 pg 25.6-32.2 MEAN CORPUSCULAR HEMOGLOBIN CONC (BEAKER) (test byat=174) 30.0 GM/DL 32.2-35.5 RED CELL DISTRIBUTION WIDTH (BEAKER) (test zcoi=999) 18.3 % 11.7-14.4 PLATELET COUNT (BEAKER) (test utfy=418) 656 K/CU MM 150-450 MEAN PLATELET VOLUME (BEAKER) (test inxd=647) 9.7 fL 9.4-12.3 NUCLEATED RED BLOOD CELLS (BEAKER) (test ojqd=665) 0 /100 WBC 0-0 NEUTROPHILS RELATIVE PERCENT (BEAKER) (test qxnw=059) 69 % LYMPHOCYTES RELATIVE PERCENT (BEAKER) (test snyn=289) 21 % MONOCYTES RELATIVE PERCENT (BEAKER) (test xffr=723) 9 % EOSINOPHILS RELATIVE PERCENT (BEAKER) (test uogn=152) 0 % BASOPHILS RELATIVE PERCENT (BEAKER) (test jlhf=725) 0 % NEUTROPHILS ABSOLUTE COUNT (BEAKER) (test aagb=925) 7.37 K/ L 1.56-6.13 LYMPHOCYTES ABSOLUTE COUNT (BEAKER) (test ixwb=606) 2.18 K/ L 1.18-3.74 MONOCYTES ABSOLUTE COUNT (BEAKER) (test uqcg=297) 1.00 K/ L 0.24-0.36 EOSINOPHILS ABSOLUTE COUNT (BEAKER) (test ihgt=456) 0.02 K/ L 0.04-0.36 BASOPHILS ABSOLUTE COUNT (BEAKER) (test bkgr=484) 0.01 K/ L 0.01-0.08 IMMATURE GRANULOCYTES-RELATIVE PERCENT (BEAKER) (test isut=7879) 1 % 0-1 [id number] 05:49:00* Test Item Value Reference Range Comments PROTIME (BEJENNY) (test euho=021) 15.7 seconds 11.7-14.7 INR (BEAKER) (test rfgx=892) 1.2 <=5.9 PARTIAL THROMBOPLASTIN TIME (BEAKER) (test ombr=499) 51.3 seconds 22.5-36.0 RECOMMENDED COUMADIN/WARFARIN INR THERAPY RANGESSTANDARD DOSE: 2.0 - 3.0 Inclu hola: PROPHYLAXIS for venous thrombosis, systemic embolization; TREATMENT for rodrigo ous thrombosis and/or pulmonary embolus.HIGH RISK: Target INR is 2.5-3.5 for pat ients with mechanical heart valves.POCT-GLUCOSE [id number] 21:28:00* Test Item Value Reference Range Comments POC-GLUCOSE METER (JOSE CRUZ) (test xfhr=9383) 202 mg/dL 70-110 TESTED AT [address] [address] POCT-GLUCOSE [id number] 17:48:00* Test Item Value Reference Range Comments POC-GLUCOSE METER ([facility]) (test enlh=1563) 179 mg/dL 70-110 TESTED AT [address] [address] POCT-GLUCOSE [id number] 13:04:00* Test Item Value Reference Range Comments POC-GLUCOSE METER ([facility]) (test laba=3644) 229 mg/dL 70-110 TESTED AT [address] [address] RAD, CHEST, 1 VIEW, NON [id number] 09:32:00Reason for exam:->evaluation of pulmonary edemaShould this be performed at the bedside?->YesFINAL REPORT CLINICAL HISTORY: Pulmonary edema TECHNIQUE: 1 view of the chest COMPARISON: 09/18/2018 IMPRESSION: There are no focal infiltrates or pleural effusions. The cardiomediastinal silhouette is within normal limits for size. The visualized bones are intact. Signed: Yousif Kwok MDReport Verified Date/Time: 09/19/2018 09:32:32 Reading Location: [facility] Radiology Reading Room -GLUCOSE [id number] 09:27:00* Test Item Value Reference Range Comments POC-GLUCOSE METER (BEAKER) (test mqcb=5687) 214 mg/dL 70-110 TESTED AT [facility] [address] [facility] [address] BASIC METABOLIC [id number] 06:56:00* Test Item Value Reference Range Comments SODIUM (BEAKER) (test dkiw=073) 137 meq/L 136-145 POTASSIUM (BEAKER) (test cgzk=392) 4.4 meq/L 3.5-5.1 CHLORIDE (BEAKER) (test wrcb=862) 98 meq/L 98-107 CO2 (BEAKER) (test ybtb=110) 23 meq/L 22-29 BLOOD UREA NITROGEN (BEAKER) (test grlg=189) 28 mg/dL 7-21 CREATININE (BEAKER) (test mjmj=462) 1.30 mg/dL 0.57-1.25 GLUCOSE RANDOM (BEAKER) (test pjwf=064) 209 mg/dL 70-105 CALCIUM (BEAKER) (test kxcl=480) 11.2 mg/dL 8.4-10.2 EGFR (BEAKER) (test lbgy=1912) 42 mL/min/1.73 sq m ESTIMATED GFR IS NOT ACCURATE CREATININE CLEARANCE IN PREDICTING GLOMERULAR FILTRATION RATE. ESTIMATED GFR IS NOT APPLICABLE FOR DIALYSIS PATIENTS. [id number] 06:40:00* Test Item Value Reference Range Comments PHOSPHORUS (BEAKER) (test kdpi=874) 5.0 mg/dL 2.3-4.7 [id number] 06:40:00* Test Item Value Reference Range Comments MAGNESIUM (BEAKER) (test zjsm=549) 1.4 mg/dL 1.6-2.6 CBC W/PLT COUNT & AUTO [id number] 06:26:00* Test Item Value Reference Range Comments WHITE BLOOD CELL COUNT (BEAKER) (test kbns=547) 6.4 K/ L 3.5-10.5 RED BLOOD CELL COUNT (BEAKER) (test hnii=816) 4.17 M/ L 3.93-5.22 HEMOGLOBIN (BEAKER) (test sjfv=228) 9.5 GM/DL 11.2-15.7 HEMATOCRIT (BEAKER) (test twdz=786) 32.4 % 34.1-44.9 MEAN CORPUSCULAR VOLUME (BEAKER) (test ipcs=973) 77.7 fL 79.4-94.8 MEAN CORPUSCULAR HEMOGLOBIN (BEAKER) (test zpxy=777) 22.8 pg 25.6-32.2 MEAN CORPUSCULAR HEMOGLOBIN CONC (BEAKER) (test uucm=402) 29.3 GM/DL 32.2-35.5 RED CELL DISTRIBUTION WIDTH (BEAKER) (test klxd=545) 17.9 % 11.7-14.4 PLATELET COUNT (BEAKER) (test hmwg=078) 589 K/CU MM 150-450 MEAN PLATELET VOLUME (BEAKER) (test pwmb=002) 9.8 fL 9.4-12.3 NUCLEATED RED BLOOD CELLS (BEAKER) (test lewd=996) 0 /100 WBC 0-0 NEUTROPHILS RELATIVE PERCENT (BEAKER) (test xvow=807) 87 % LYMPHOCYTES RELATIVE PERCENT (BEAKER) (test tbab=435) 11 % MONOCYTES RELATIVE PERCENT (BEAKER) (test tdbg=515) 1 % EOSINOPHILS RELATIVE PERCENT (BEAKER) (test huex=103) 0 % BASOPHILS RELATIVE PERCENT (BEAKER) (test hayg=470) 0 % NEUTROPHILS ABSOLUTE COUNT (BEAKER) (test vdtu=017) 5.60 K/ L 1.56-6.13 LYMPHOCYTES ABSOLUTE COUNT (BEAKER) (test bsjp=364) 0.67 K/ L 1.18-3.74 MONOCYTES ABSOLUTE COUNT (BEAKER) (test hxvw=689) 0.07 K/ L 0.24-0.36 EOSINOPHILS ABSOLUTE COUNT (BEAKER) (test vycq=517) 0.00 K/ L 0.04-0.36 BASOPHILS ABSOLUTE COUNT (BEAKER) (test cqjw=780) 0.01 K/ L 0.01-0.08 IMMATURE GRANULOCYTES-RELATIVE PERCENT (BEAKER) (test jpqf=8473) 1 % 0-1 [id number] 06:23:00* Test Item Value Reference Range Comments PROTIME (BEAKER) (test vnqj=439) 16.6 seconds 11.7-14.7 INR (BEAKER) (test ntla=019) 1.3 <=5.9 PARTIAL THROMBOPLASTIN TIME (BEAKER) (test lxny=949) 58.8 seconds 22.5-36.0 RECOMMENDED COUMADIN/WARFARIN INR THERAPY RANGESSTANDARD DOSE: 2.0 - 3.0 Inclu hola: PROPHYLAXIS for venous thrombosis, systemic embolization; TREATMENT for rodrigo ous thrombosis and/or pulmonary embolus.HIGH RISK: Target INR is 2.5-3.5 for pat ients with mechanical heart valves.POCT-GLUCOSE [id number] 22:50:00* Test Item Value Reference Range Comments POC-GLUCOSE METER ([facility]) (test qswb=1975) 91 mg/dL 70-110 TESTED AT [address] [address] POCT-GLUCOSE [id number] 21:37:00* Test Item Value Reference Range Comments POC-GLUCOSE METER ([facility]) (test znwo=5352) 66 mg/dL 70-110 TESTED AT [address] [address] POCT-GLUCOSE [id number] 16:10:00* Test Item Value Reference Range Comments POC-GLUCOSE METER (AKER) (test uaem=3151) 82 mg/dL 70-110 TESTED AT [address] [address] BODY FLUID CULTURE + GRAM [id number] 15:51:00* Test Item Value Reference Range Comments CULTURE (AKER) (test xegp=5201) ENTEROBACTER CLOACAE COMPLEX 2+ Enterobacter cloacae complex Amikacin (test code=1) Aztreonam (test code=32) Cefepime (test code=51) Cefoxitin (test code=68) Ceftazidime (test code=27) Ceftriaxone (test code=52) Ertapenem (test code=38) Gentamicin (test code=18) Levofloxacin (test code=22) Meropenem (test code=34) Nitrofurantoin (test code=23) Piperacillin + Tazobactam (test code=29) Tetracycline (test code=2) Tobramycin (test code=25) Trimethoprim + Sulfamethoxazole (test code=47) CULTURE (AKER) (test sfkn=7570) ESCHERICHIA COLI 2+ Escherichia coli Amikacin (test code=1) Ampicillin + Sulbactam (test code=6) Aztreonam (test code=32) Cefepime (test code=51) Cefoxitin (test code=68) Ceftazidime (test code=27) Ceftriaxone (test code=52) Ertapenem (test code=38) Gentamicin (test code=18) Levofloxacin (test code=22) Meropenem (test code=34) Nitrofurantoin (test code=23) Piperacillin + Tazobactam (test code=29) Tetracycline (test code=2) Tobramycin (test code=25) Trimethoprim + Sulfamethoxazole (test code=47) GRAM STAIN RESULT (BEAKER) (test qeyz=9611) 2+ WBCs GRAM STAIN RESULT (BEAKER) (test wfky=793926) <1+ gram positive rods POCT-GLUCOSE [id number] 13:46:00* Test Item Value Reference Range Comments POC-GLUCOSE METER (BEAKER) (test nlzd=2612) 77 mg/dL 70-110 TESTED AT [address] [address] U/S, RENAL, [id number] 12:06:00Reason for exam:->assess for hydronephrosis, please compare to previous CTFINAL REPORT Renal ultrasound, 09/18/2018 Grayscale and limited [...] Left hydronephrosis has resolved. Signed: Dwain Strickland MDReport Verified Date/Time: 09/18/2018 12:06:53 Reading Location: [address] [facility]trasound [facility] signed by: DWAIN STRICKLAND M.D. on 09/18/2018 12:06 PM RAD, CHEST, 1 VIEW, NON [id number] 09:46:00Reason for exam:->evaluation of pulmonary edemaShould this be performed at the bedside?->YesFINAL REPORT CLINICAL HISTORY: Pulmonary edema TECHNIQUE: 1 view of the chest COMPARISON: 09/17/2018 IMPRESSION: There are no focal infiltrates or pleural effusions. The cardiomediastinal silhouette is within normal limits for size. The visualized bones are intact. Signed: Yousif Kwok MDReport Verified Date/Time: 09/18/2018 09:46:29 Reading Location: [facility] Radiology Reading Room - GLUCOSE [id number] 08:40:00* Test Item Value Reference Range Comments POC-GLUCOSE METER (BEAKER) (test rxki=0204) 78 mg/dL 70-110 TESTED AT [address] [address] BASIC METABOLIC [id number] 05:29:00* Test Item Value Reference Range Comments SODIUM (BEAKER) (test dqcj=978) 134 meq/L 136-145 POTASSIUM (BEAKER) (test pevm=681) 4.5 meq/L 3.5-5.1 CHLORIDE (BEAKER) (test lzsd=675) 95 meq/L 98-107 CO2 (BEAKER) (test kfaw=394) 27 meq/L 22-29 BLOOD UREA NITROGEN (BEAKER) (test rjui=553) 26 mg/dL 7-21 CREATININE (BEAKER) (test sgba=041) 1.75 mg/dL 0.57-1.25 GLUCOSE RANDOM (BEAKER) (test xbts=059) 68 mg/dL 70-105 CALCIUM (BEAKER) (test difd=593) 11.1 mg/dL 8.4-10.2 EGFR (BEAKER) (test xalk=5613) 30 mL/min/1.73 sq m ESTIMATED GFR IS NOT ACCURATE CREATININE CLEARANCE IN PREDICTING GLOMERULAR FILTRATION RATE. ESTIMATED GFR IS NOT APPLICABLE FOR DIALYSIS PATIENTS. [id number] 05:23:00* Test Item Value Reference Range Comments PHOSPHORUS (BEAKER) (test ghdn=035) 3.6 mg/dL 2.3-4.7 [id number] 05:23:00* Test Item Value Reference Range Comments MAGNESIUM (BEAKER) (test mbfa=774) 1.6 mg/dL 1.6-2.6 CBC W/PLT COUNT & AUTO [id number] 05:23:00* Test Item Value Reference Range Comments WHITE BLOOD CELL COUNT (BEAKER) (test htsc=524) 12.1 K/ L 3.5-10.5 RED BLOOD CELL COUNT (BEAKER) (test pgds=967) 4.28 M/ L 3.93-5.22 HEMOGLOBIN (BEAKER) (test xzhu=814) 9.8 GM/DL 11.2-15.7 HEMATOCRIT (BEAKER) (test kpzq=333) 33.4 % 34.1-44.9 MEAN CORPUSCULAR VOLUME (BEAKER) (test mohv=710) 78.0 fL 79.4-94.8 MEAN CORPUSCULAR HEMOGLOBIN (BEAKER) (test rlkn=138) 22.9 pg 25.6-32.2 MEAN CORPUSCULAR HEMOGLOBIN CONC (BEAKER) (test zhvu=999) 29.3 GM/DL 32.2-35.5 RED CELL DISTRIBUTION WIDTH (BEAKER) (test htei=627) 17.8 % 11.7-14.4 PLATELET COUNT (BEAKER) (test cqrg=628) 619 K/CU MM 150-450 MEAN PLATELET VOLUME (BEAKER) (test mhnn=755) 9.7 fL 9.4-12.3 NUCLEATED RED BLOOD CELLS (BEAKER) (test dxjd=471) 0 /100 WBC 0-0 NEUTROPHILS RELATIVE PERCENT (BEAKER) (test zsxq=705) 71 % LYMPHOCYTES RELATIVE PERCENT (BEAKER) (test ijvs=699) 18 % MONOCYTES RELATIVE PERCENT (BEAKER) (test mplp=532) 8 % EOSINOPHILS RELATIVE PERCENT (BEAKER) (test utoi=197) 3 % BASOPHILS RELATIVE PERCENT (BEAKER) (test knfi=411) 0 % NEUTROPHILS ABSOLUTE COUNT (BEAKER) (test uhyn=694) 8.60 K/ L 1.56-6.13 LYMPHOCYTES ABSOLUTE COUNT (BEAKER) (test kewf=897) 2.14 K/ L 1.18-3.74 MONOCYTES ABSOLUTE COUNT (BEAKER) (test skhg=598) 0.92 K/ L 0.24-0.36 EOSINOPHILS ABSOLUTE COUNT (BEAKER) (test qsmf=315) 0.34 K/ L 0.04-0.36 BASOPHILS ABSOLUTE COUNT (BEAKER) (test swcg=978) 0.05 K/ L 0.01-0.08 IMMATURE GRANULOCYTES-RELATIVE PERCENT (BEAKER) (test womf=7403) 1 % 0-1 PT/[id number] 05:21:00* Test Item Value Reference Range Comments PROTIME (BEAKER) (test glou=614) 15.0 seconds 11.7-14.7 INR (BEAKER) (test tcjn=991) 1.2 <=5.9 PARTIAL THROMBOPLASTIN TIME (BEAKER) (test pmar=604) 63.3 seconds 22.5-36.0 RECOMMENDED COUMADIN/WARFARIN INR THERAPY RANGESSTANDARD DOSE: 2.0 - 3.0 Inclu hola: PROPHYLAXIS for venous thrombosis, systemic embolization; TREATMENT for rodrigo ous thrombosis and/or pulmonary embolus.HIGH RISK: Target INR is 2.5-3.5 for pat ients with mechanical heart valves.POCT-GLUCOSE [id number] 21:35:00* Test Item Value Reference Range Comments POC-GLUCOSE METER (BEAKER) (test jeww=4518) 140 mg/dL 70-110 TESTED AT [address] [address] POCT-GLUCOSE [id number] 17:55:00* Test Item Value Reference Range Comments POC-GLUCOSE METER (BEAKER) (test mapa=4287) 224 mg/dL 70-110 TESTED AT [address] [address] POCT-GLUCOSE [id number] 12:24:00* Test Item Value Reference Range Comments POC-GLUCOSE METER (BEAKER) (test ewra=4158) 109 mg/dL 70-110 TESTED AT [place] [id number] [facility] [address] RAD, CHEST, 1 VIEW, NON [id number] 09:09:00Reason for exam:->evaluation of pulmonary edemaShould this be performed at the bedside?->YesFINAL REPORT INDICATION: evaluation of pulmonary edema COMPARISON:September 16 TECHNIQUE: Chest radiograph, single view, portable technique. FINDINGS / IMPRESSION: No pulmonary venous congestion or edema is demonstrated. Heart shadow is normal in size. No pneumothorax or pleural effusion. Osseous stru ctures unremarkable. Signed: Alicia Kahn Verified Date/Time: 09/08 09:09:21 Reading Location: [facility] B1 C013X Ortho Consult Reading Room Electr onically signed by: ALICIA KAHN M.D. on 09/17/2018 09:09 AM POCT- GLUCOSE [id number] 08:48:00* Test Item Value Reference Range Comments POC-GLUCOSE METER (BEAKER) (test zeid=5170) 86 mg/dL 70-110 TESTED AT [facility] [address] [facility] [address] CBC W/PLT COUNT & AUTO [id number] 05:29:00* Test Item Value Reference Range Comments WHITE BLOOD CELL COUNT (BEAKER) (test nplg=532) 10.5 K/ L 3.5-10.5 RED BLOOD CELL COUNT (BEAKER) (test lcbt=934) 4.16 M/ L 3.93-5.22 HEMOGLOBIN (BEAKER) (test dvmt=125) 9.6 GM/DL 11.2-15.7 HEMATOCRIT (BEAKER) (test yitg=953) 31.9 % 34.1-44.9 MEAN CORPUSCULAR VOLUME (BEAKER) (test njwv=059) 76.7 fL 79.4-94.8 MEAN CORPUSCULAR HEMOGLOBIN (BEAKER) (test tfmr=321) 23.1 pg 25.6-32.2 MEAN CORPUSCULAR HEMOGLOBIN CONC (BEAKER) (test iskq=327) 30.1 GM/DL 32.2-35.5 RED CELL DISTRIBUTION WIDTH (BEAKER) (test vvvf=957) 17.5 % 11.7-14.4 PLATELET COUNT (BEAKER) (test yfvr=860) 614 K/CU MM 150-450 MEAN PLATELET VOLUME (BEAKER) (test hrus=328) 9.4 fL 9.4-12.3 NUCLEATED RED BLOOD CELLS (BEAKER) (test ccef=907) 0 /100 WBC 0-0 NEUTROPHILS RELATIVE PERCENT (BEAKER) (test dgsj=167) 75 % LYMPHOCYTES RELATIVE PERCENT (BEAKER) (test enqm=091) 14 % MONOCYTES RELATIVE PERCENT (BEAKER) (test ouuk=810) 7 % EOSINOPHILS RELATIVE PERCENT (BEAKER) (test evke=646) 2 % BASOPHILS RELATIVE PERCENT (BEAKER) (test brby=884) 1 % NEUTROPHILS ABSOLUTE COUNT (BEAKER) (test kvjf=662) 7.87 K/ L 1.56-6.13 LYMPHOCYTES ABSOLUTE COUNT (BEAKER) (test lard=118) 1.52 K/ L 1.18-3.74 MONOCYTES ABSOLUTE COUNT (BEAKER) (test izue=130) 0.78 K/ L 0.24-0.36 EOSINOPHILS ABSOLUTE COUNT (BEAKER) (test qaga=251) 0.25 K/ L 0.04-0.36 BASOPHILS ABSOLUTE COUNT (BEAKER) (test ydqf=633) 0.05 K/ L 0.01-0.08 IMMATURE GRANULOCYTES-RELATIVE PERCENT (BEAKER) (test ysca=4452) 1 % 0-1 [id number] 05:12:00* Test Item Value Reference Range Comments PHOSPHORUS (BEAKER) (test onix=685) 3.0 mg/dL 2.3-4.7 [id number] 05:12:00* Test Item Value Reference Range Comments MAGNESIUM (BEAKER) (test pqdm=715) 1.8 mg/dL 1.6-2.6 BASIC METABOLIC [id number] 05:12:00* Test Item Value Reference Range Comments SODIUM (BEAKER) (test ndvd=686) 132 meq/L 136-145 POTASSIUM (BEAKER) (test oflf=241) 3.9 meq/L 3.5-5.1 CHLORIDE (BEAKER) (test lppd=564) 94 meq/L 98-107 CO2 (BEAKER) (test slfo=609) 28 meq/L 22-29 BLOOD UREA NITROGEN (BEAKER) (test csor=714) 23 mg/dL 7-21 CREATININE (BEAKER) (test jyso=449) 1.65 mg/dL 0.57-1.25 GLUCOSE RANDOM (BEAKER) (test sevz=883) 95 mg/dL 70-105 CALCIUM (BEAKER) (test jgtn=663) 10.0 mg/dL 8.4-10.2 EGFR (BEAKER) (test bjgg=3715) 32 mL/min/1.73 sq m ESTIMATED GFR IS NOT ACCURATE CREATININE CLEARANCE IN PREDICTING GLOMERULAR FILTRATION RATE. ESTIMATED GFR IS NOT APPLICABLE FOR DIALYSIS PATIENTS. [id number] 05:00:00* Test Item Value Reference Range Comments PROTIME (BEAKER) (test krwp=467) 15.7 seconds 11.7-14.7 INR (BEAKER) (test lcuw=659) 1.2 <=5.9 PARTIAL THROMBOPLASTIN TIME (BEAKER) (test xcxw=837) 58.7 seconds 22.5-36.0 RECOMMENDED COUMADIN/WARFARIN INR THERAPY RANGESSTANDARD DOSE: 2.0 - 3.0 Inclu hola: PROPHYLAXIS for venous thrombosis, systemic embolization; TREATMENT for rodrigo ous thrombosis and/or pulmonary embolus.HIGH RISK: Target INR is 2.5-3.5 for pat ients with mechanical heart valves.POCT-GLUCOSE [id number] 21:52:00* Test Item Value Reference Range Comments POC-GLUCOSE METER (BEAKER) (test smpj=9431) 167 mg/dL 70-110 TESTED AT [facility] [address] [facility] [address] POCT-GLUCOSE [id number] 18:33:00* Test Item Value Reference Range Comments POC-GLUCOSE METER (BEAKER) (test phcm=9553) 116 mg/dL 70-110 TESTED AT [facility] [address] [facility] [address] POCT-GLUCOSE [id number] 12:39:00* Test Item Value Reference Range Comments POC-GLUCOSE METER (BEAKER) (test mzpk=3327) 120 mg/dL 70-110 TESTED AT [facility] [address] [facility] [address] RAD, CHEST, 1 VIEW, NON [id number] 11:54:00Reason for exam:->evaluation of pulmonary edemaShould this be performed at the bedside?->YesFINAL REPORT INDICATION: evaluation of pulmonary edema COMPARISON:September 15 TECHNIQUE: Chest radiograph, single view, portable technique. FINDINGS / IMPRESSION: Pulmonary veins are not engorged and no pulmonary edema de monstrated. Heart shadow is normal in size for portable technique. No pneumothor ax, consolidation, or pleural effusion demonstrated. Osseous structures are unre markable. Signed: Alicia Kahn MDReport Verified Date/Time: 09/16/2018 11:5 4:49 Reading Location: [facility] [id number] Ortho Consult Reading Room Electronically si gned by: ALICIA KAHN M.D. on 09/16/2018 11:54 AM POCT-GLUCOSE METER 2018-09-16 09:08:00* Test Item Value Reference Range Comments POC-GLUCOSE METER (BEAKER) (test aont=2607) 105 mg/dL 70-110 TESTED AT [facility] [address] [facility] [address] COMPREHENSIVE METABOLIC [id number] 05:22:00* Test Item Value Reference Range Comments TOTAL PROTEIN (BEAKER) (test mmsv=777) 6.3 gm/dL 6.0-8.3 ALBUMIN (BEAKER) (test pffj=3903) 3.0 g/dL 3.5-5.0 ALKALINE PHOSPHATASE (BEAKER) (test tcro=194) 64 U/L 40-150 BILIRUBIN TOTAL (BEAKER) (test obzb=723) 0.2 mg/dL 0.2-1.2 SODIUM (BEAKER) (test aovf=480) 135 meq/L 136-145 POTASSIUM (BEAKER) (test aiul=717) 4.0 meq/L 3.5-5.1 CHLORIDE (BEAKER) (test nwva=264) 98 meq/L 98-107 CO2 (BEAKER) (test epch=670) 28 meq/L 22-29 BLOOD UREA NITROGEN (BEAKER) (test vyyp=297) 22 mg/dL 7-21 CREATININE (BEAKER) (test drkl=154) 1.60 mg/dL 0.57-1.25 GLUCOSE RANDOM (BEAKER) (test foxs=794) 99 mg/dL 70-105 CALCIUM (BEAKER) (test qqrf=566) 10.1 mg/dL 8.4-10.2 AST (SGOT) (BEAKER) (test hqek=920) 12 U/L 5-34 ALT (SGPT) (BEAKER) (test feaa=994) < U/L 6-55 EGFR (BEAKER) (test yjzs=3293) 33 mL/min/1.73 sq m ESTIMATED GFR IS NOT ACCURATE CREATININE CLEARANCE IN PREDICTING GLOMERULAR FILTRATION RATE. ESTIMATED GFR IS NOT APPLICABLE FOR DIALYSIS PATIENTS. CBC W/PLT COUNT & AUTO [id number] 05:12:00* Test Item Value Reference Range Comments WHITE BLOOD CELL COUNT (BEAKER) (test lqtu=463) 11.1 K/ L 3.5-10.5 RED BLOOD CELL COUNT (BEAKER) (test hocy=177) 4.02 M/ L 3.93-5.22 HEMOGLOBIN (BEAKER) (test tsmm=532) 9.3 GM/DL 11.2-15.7 HEMATOCRIT (BEAKER) (test srwy=698) 31.3 % 34.1-44.9 MEAN CORPUSCULAR VOLUME (BEAKER) (test zyil=816) 77.9 fL 79.4-94.8 MEAN CORPUSCULAR HEMOGLOBIN (BEAKER) (test wymk=832) 23.1 pg 25.6-32.2 MEAN CORPUSCULAR HEMOGLOBIN CONC (BEAKER) (test rdbv=937) 29.7 GM/DL 32.2-35.5 RED CELL DISTRIBUTION WIDTH (BEAKER) (test gxdj=413) 17.5 % 11.7-14.4 PLATELET COUNT (BEAKER) (test vnno=421) 530 K/CU MM 150-450 MEAN PLATELET VOLUME (BEAKER) (test wvcl=862) 9.6 fL 9.4-12.3 NUCLEATED RED BLOOD CELLS (BEAKER) (test kgkz=434) 0 /100 WBC 0-0 NEUTROPHILS RELATIVE PERCENT (BEAKER) (test zkfq=304) 80 % LYMPHOCYTES RELATIVE PERCENT (BEAKER) (test kjqd=518) 12 % MONOCYTES RELATIVE PERCENT (BEAKER) (test lsac=109) 6 % EOSINOPHILS RELATIVE PERCENT (BEAKER) (test umao=106) 1 % BASOPHILS RELATIVE PERCENT (BEAKER) (test uvxm=020) 1 % NEUTROPHILS ABSOLUTE COUNT (BEAKER) (test umyw=745) 8.83 K/ L 1.56-6.13 LYMPHOCYTES ABSOLUTE COUNT (BEAKER) (test iduz=889) 1.30 K/ L 1.18-3.74 MONOCYTES ABSOLUTE COUNT (BEAKER) (test dyma=304) 0.70 K/ L 0.24-0.36 EOSINOPHILS ABSOLUTE COUNT (BEAKER) (test pyrr=517) 0.12 K/ L 0.04-0.36 BASOPHILS ABSOLUTE COUNT (BEAKER) (test abmk=821) 0.05 K/ L 0.01-0.08 IMMATURE GRANULOCYTES-RELATIVE PERCENT (BEAKER) (test eohr=1386) 1 % 0-1 [id number] 05:04:00* Test Item Value Reference Range Comments PHOSPHORUS (BEAKER) (test ftzr=189) 3.7 mg/dL 2.3-4.7 [id number] 05:04:00* Test Item Value Reference Range Comments MAGNESIUM (BEAKER) (test rner=505) 1.3 mg/dL 1.6-2.6 [id number] 04:58:00* Test Item Value Reference Range Comments PROTIME (BEAKER) (test fchk=045) 15.9 seconds 11.7-14.7 INR (BEAKER) (test lefk=763) 1.2 <=5.9 PARTIAL THROMBOPLASTIN TIME (BEAKER) (test havi=196) 55.2 seconds 22.5-36.0 RECOMMENDED COUMADIN/WARFARIN INR THERAPY RANGESSTANDARD DOSE: 2.0 - 3.0 Inclu hola: PROPHYLAXIS for venous thrombosis, systemic embolization; TREATMENT for rodrigo ous thrombosis and/or pulmonary embolus.HIGH RISK: Target INR is 2.5-3.5 for pat ients with mechanical heart valves.POCT-GLUCOSE [id number] 22:31:00* Test Item Value Reference Range Comments POC-GLUCOSE METER (BEAKER) (test ddzj=0186) 136 mg/dL 70-110 TESTED AT [address] [address] [address], DRAINAGE, [id number] 20:12:00Reason for exam:->pelvic abscess drain placement from mid abdomenFINAL REPORT PROCEDURE: Pelvic abscess drainage. Dose modulation, [...] Successful placement of a right pelvic 8 Albanian drainage catheter with aspiration of 30 mL of purulent fluid. Signed: Javier Carrion MDReport Verified Date/Time: 09/15/2018 20:12:36 Reading Location: [facility] C013Y CT Body Reading Room -GLUCOSE [id number] 18:20:00* Test Item Value Reference Range Comments POC-GLUCOSE METER (BEAKER) (test qxfh=7542) 108 mg/dL 70-110 TESTED AT [facility] [address] [facility] [address] [address], [id number] 13:36:00FINAL REPORT TECHNIQUE: CT of the abdomen and [...] likely due to fasting. No biliary ductal dilatation.SPLEEN: No splenomegaly.PANCREAS: No focal masses or ductal dilatation. ADRENALS: No adrenal nodules.KIDNEYS/URETERS: Bilateral moderate hydronephrosis with ureteral transitions at [...] contacts the adjacent loops of small bowel. P ERITONEUM/RETROPERITONEUM: A fluid collection adjacent to the mass in the right measures 3.3 x 3.8 x 5.2 cm, previously 35 5 x 4 x 4.6 cm, essentially unchanged . Small volume free fluid in the pelvis. LYMPH NODES: No lymphadenopathy.VESSELS : Unremarkable. GI TRACT: The sigmoid colon is very by the mass. 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 The mass at least contacts the adjacent small bowel. BONES AND SOFT TISSUES: Unremarkable. IMPRESSION: 1.The right pelvic abscess no long er contains a drainage catheter and is unchanged in size. There does appear to b e a small window in the right hemiabdomen, and abscess drainage will be attempte d. 2.The pelvic mass appears to invade both adnexa and the adjacent sigmoid colo n. In addition, this is inseparable from adjacent to small bowel. This also inva hola both distal ureters and results in moderate hydronephrosis. Signed: Arian Carrion MDReport Verified Date/Time: 09/15/2018 13:36:13 Reading Location: [facility] C0 13Y CT Body Reading Room Electronically signed by: JAVIER CARRION MD on 0 09/15/2018 01:36 PM SODIUM, RANDOM [id number] 10:21:00* Test Item Value Reference Range Comments SODIUM URINE (BEAKER) (test jgvj=263) 114 meq/L Reference Range: No NormalsUREA NITROGEN, RANDOM [id number] 10:21:00* Test Item Value Reference Range Comments UREA NITROGEN URINE (BEAKER) (test rzgg=739) 122 mg/dL Reference Range: No NormalsCREATININE, RANDOM [id number] 10:20:00* Test Item Value Reference Range Comments CREATININE URINE (BEAKER) (test zxst=213) 18.3 mg/dL Reference Range: No NormalsRAD, CHEST, 1 VIEW, NON [id number] 10:20:00Reason for exam:->evaluation of pulmonary edemaShould this be performed at the bedside?->YesFINAL REPORT INDICATION: evaluation of pulmonary edema COMPARISON:September 14 TECHNIQUE: Chest radiograph, single view, portable technique. FINDINGS / IMPRESSION: Heart shadow is normal in size for portable technique. Pulmonary veins are not engorged and no pulmonary edema is demonstrated. No consolidation, pneumothorax, or pleural effusion demonstrated. Signed: Alicia Kahn MDReport Verified Date/Time: 09/15/2018 10:20:58 Reading Location: [facility] Radiology Reading Room ALYSIS W/ MICROSCOPIC 2018-09-15 09:51:00* Test Item Value Reference Range Comments COLOR (BEAKER) (test clny=347) Yellow CLARITY (BEAKER) (test zhop=275) Clear SPECIFIC GRAVITY UA (BEAKER) (test lcgu=916) 1.007 1.001-1.035 PH UA (BEAKER) (test vfue=348) 7.5 5.0-8.0 PROTEIN UA (BEAKER) (test beqf=629) 20 mg/dL Negative GLUCOSE UA (BEAKER) (test pmca=627) Negative Negative KETONES UA (BEAKER) (test oijw=214) Negative Negative BILIRUBIN UA (BEAKER) (test dlpg=432) Negative Negative BLOOD UA (BEAKER) (test gylr=462) Moderate Negative NITRITE UA (BEAKER) (test jtzb=095) Negative Negative LEUKOCYTE ESTERASE UA (BEAKER) (test qaxx=318) Moderate Negative UROBILINOGEN UA (BEAKER) (test jdcz=029) 0.2 mg/dL 0.2-1.0 RBC UA (BEAKER) (test lhfg=223) 12 /HPF WBC UA (BEAKER) (test pzhe=086) 11 /HPF BACTERIA (BEAKER) (test ewfs=614) Rare CRYSTALS, URINE (BEAKER) (test qruj=1424) Rare SOURCE(BEAKER) (test lvnq=3793) Urine, Voided POCT-GLUCOSE [id number] 08:39:00* Test Item Value Reference Range Comments POC-GLUCOSE METER (BEAKER) (test ycdw=0496) 102 mg/dL 70-110 TESTED AT [facility] [address] [facility] [address] [id number] 05:39:00* Test Item Value Reference Range Comments MAGNESIUM (BEAKER) (test ksoc=318) 1.0 mg/dL 1.6-2.6 [id number] 05:39:00* Test Item Value Reference Range Comments PROTIME (BEAKER) (test wowf=737) 16.4 seconds 11.7-14.7 INR (BEAKER) (test rhkk=339) 1.3 <=5.9 PARTIAL THROMBOPLASTIN TIME (BEAKER) (test kapq=983) 60.4 seconds 22.5-36.0 RECOMMENDED COUMADIN/WARFARIN INR THERAPY RANGESSTANDARD DOSE: 2.0 - 3.0 Inclu hola: PROPHYLAXIS for venous thrombosis, systemic embolization; TREATMENT for rodrigo ous thrombosis and/or pulmonary embolus.HIGH RISK: Target INR is 2.5-3.5 for pat ients with mechanical heart valves.[id number] 05:32:00* Test Item Value Reference Range Comments PHOSPHORUS (BEAKER) (test qjix=909) 3.6 mg/dL 2.3-4.7 BASIC METABOLIC [id number] 05:32:00* Test Item Value Reference Range Comments SODIUM (BEAKER) (test giye=190) 134 meq/L 136-145 POTASSIUM (BEAKER) (test lvxh=289) 4.1 meq/L 3.5-5.1 CHLORIDE (BEAKER) (test rnzo=728) 95 meq/L 98-107 CO2 (BEAKER) (test qndx=605) 27 meq/L 22-29 BLOOD UREA NITROGEN (BEAKER) (test rsiu=246) 21 mg/dL 7-21 CREATININE (BEAKER) (test psey=463) 1.51 mg/dL 0.57-1.25 GLUCOSE RANDOM (BEAKER) (test tjpw=511) 94 mg/dL 70-105 CALCIUM (BEAKER) (test wizk=340) 9.5 mg/dL 8.4-10.2 EGFR (BEAKER) (test tvbe=7221) 35 mL/min/1.73 sq m ESTIMATED GFR IS NOT ACCURATE CREATININE CLEARANCE IN PREDICTING GLOMERULAR FILTRATION RATE. ESTIMATED GFR IS NOT APPLICABLE FOR DIALYSIS PATIENTS. BASIC METABOLIC [id number] 05:31:00* Test Item Value Reference Range Comments SODIUM (BEAKER) (test bpod=942) 135 meq/L 136-145 POTASSIUM (BEAKER) (test bsuj=200) 3.9 meq/L 3.5-5.1 CHLORIDE (BEAKER) (test xjow=652) 95 meq/L 98-107 CO2 (BEAKER) (test jzri=610) 27 meq/L 22-29 BLOOD UREA NITROGEN (BEAKER) (test okst=502) 21 mg/dL 7-21 CREATININE (BEAKER) (test fzzm=646) 1.48 mg/dL 0.57-1.25 GLUCOSE RANDOM (BEAKER) (test jcnl=340) 95 mg/dL 70-105 CALCIUM (BEAKER) (test zsrv=616) 9.4 mg/dL 8.4-10.2 EGFR (BEAKER) (test mhmd=7007) 36 mL/min/1.73 sq m ESTIMATED GFR IS NOT ACCURATE CREATININE CLEARANCE IN PREDICTING GLOMERULAR FILTRATION RATE. ESTIMATED GFR IS NOT APPLICABLE FOR DIALYSIS PATIENTS. CBC W/PLT COUNT & AUTO [id number] 05:21:00* Test Item Value Reference Range Comments WHITE BLOOD CELL COUNT (BEAKER) (test eftt=532) 9.5 K/ L 3.5-10.5 RED BLOOD CELL COUNT (BEAKER) (test orlj=952) 3.74 M/ L 3.93-5.22 HEMOGLOBIN (BEAKER) (test julp=818) 8.6 GM/DL 11.2-15.7 HEMATOCRIT (BEAKER) (test nudp=540) 29.3 % 34.1-44.9 MEAN CORPUSCULAR VOLUME (BEAKER) (test ykwh=326) 78.3 fL 79.4-94.8 MEAN CORPUSCULAR HEMOGLOBIN (BEAKER) (test ittz=096) 23.0 pg 25.6-32.2 MEAN CORPUSCULAR HEMOGLOBIN CONC (BEAKER) (test qagn=129) 29.4 GM/DL 32.2-35.5 RED CELL DISTRIBUTION WIDTH (BEAKER) (test qhaq=308) 17.4 % 11.7-14.4 PLATELET COUNT (BEAKER) (test nyyu=971) 523 K/CU MM 150-450 MEAN PLATELET VOLUME (BEAKER) (test mgvs=762) 10.1 fL 9.4-12.3 NUCLEATED RED BLOOD CELLS (BEAKER) (test btjq=494) 0 /100 WBC 0-0 NEUTROPHILS RELATIVE PERCENT (BEAKER) (test efmm=414) 73 % LYMPHOCYTES RELATIVE PERCENT (BEAKER) (test vggc=977) 17 % MONOCYTES RELATIVE PERCENT (BEAKER) (test isyy=918) 8 % EOSINOPHILS RELATIVE PERCENT (BEAKER) (test eijm=004) 2 % BASOPHILS RELATIVE PERCENT (BEAKER) (test cymp=292) 0 % NEUTROPHILS ABSOLUTE COUNT (BEAKER) (test aflv=493) 6.93 K/ L 1.56-6.13 LYMPHOCYTES ABSOLUTE COUNT (BEAKER) (test taxj=257) 1.62 K/ L 1.18-3.74 MONOCYTES ABSOLUTE COUNT (BEAKER) (test ajej=315) 0.76 K/ L 0.24-0.36 EOSINOPHILS ABSOLUTE COUNT (BEAKER) (test ytkc=479) 0.15 K/ L 0.04-0.36 BASOPHILS ABSOLUTE COUNT (BEAKER) (test cvfu=297) 0.02 K/ L 0.01-0.08 IMMATURE GRANULOCYTES-RELATIVE PERCENT (BEAKER) (test fkil=6648) 1 % 0-1 CBC W/PLT COUNT & AUTO [id number] 05:21:00* Test Item Value Reference Range Comments WHITE BLOOD CELL COUNT (BEAKER) (test hrsx=879) 10.0 K/ L 3.5-10.5 RED BLOOD CELL COUNT (BEAKER) (test zjab=550) 3.75 M/ L 3.93-5.22 HEMOGLOBIN (BEAKER) (test douy=781) 8.6 GM/DL 11.2-15.7 HEMATOCRIT (BEAKER) (test smcx=211) 29.4 % 34.1-44.9 MEAN CORPUSCULAR VOLUME (BEAKER) (test omaa=886) 78.4 fL 79.4-94.8 MEAN CORPUSCULAR HEMOGLOBIN (BEAKER) (test crsc=676) 22.9 pg 25.6-32.2 MEAN CORPUSCULAR HEMOGLOBIN CONC (BEAKER) (test yopi=093) 29.3 GM/DL 32.2-35.5 RED CELL DISTRIBUTION WIDTH (BEAKER) (test uyss=009) 17.2 % 11.7-14.4 PLATELET COUNT (BEAKER) (test ttet=415) 516 K/CU MM 150-450 MEAN PLATELET VOLUME (BEAKER) (test zbam=877) 9.8 fL 9.4-12.3 NUCLEATED RED BLOOD CELLS (BEAKER) (test nfdf=468) 0 /100 WBC 0-0 NEUTROPHILS RELATIVE PERCENT (BEAKER) (test qejq=644) 73 % LYMPHOCYTES RELATIVE PERCENT (BEAKER) (test jvbh=088) 17 % MONOCYTES RELATIVE PERCENT (BEAKER) (test lssj=286) 8 % EOSINOPHILS RELATIVE PERCENT (BEAKER) (test qqjj=442) 2 % BASOPHILS RELATIVE PERCENT (BEAKER) (test fjld=140) 0 % NEUTROPHILS ABSOLUTE COUNT (BEAKER) (test brrz=129) 7.29 K/ L 1.56-6.13 LYMPHOCYTES ABSOLUTE COUNT (BEAKER) (test heuy=828) 1.65 K/ L 1.18-3.74 MONOCYTES ABSOLUTE COUNT (BEAKER) (test rjjy=016) 0.83 K/ L 0.24-0.36 EOSINOPHILS ABSOLUTE COUNT (BEAKER) (test kgsb=506) 0.18 K/ L 0.04-0.36 BASOPHILS ABSOLUTE COUNT (BEAKER) (test quic=032) 0.03 K/ L 0.01-0.08 IMMATURE GRANULOCYTES-RELATIVE PERCENT (BEAKER) (test hyvh=0147) 0 % 0-1 POCT-GLUCOSE [id number] 21:08:00* Test Item Value Reference Range Comments POC-GLUCOSE METER (BEAKER) (test ihrg=3429) 192 mg/dL 70-110 TESTED AT [facility] [address] [facility] [address] POCT-GLUCOSE [id number] 18:47:00* Test Item Value Reference Range Comments POC-GLUCOSE METER (BEAKER) (test zckl=0546) 184 mg/dL 70-110 TESTED AT [facility] [address] [facility] [address] [id number] 15:38:00* Test Item Value Reference Range Comments PREALBUMIN (BEAKER) (test zrws=835) 15 mg/dL 14-45 Specimen slightly hemolyzed POCT-GLUCOSE [id number] 09:24:00* Test Item Value Reference Range Comments POC-GLUCOSE METER (BEAKER) (test rdzt=9096) 114 mg/dL 70-110 TESTED AT [place] [id number] [facility] [address] RAD, CHEST, 1 VIEW, NON [id number] 08:23:00Reason for exam:->evaluation of pulmonary edemaShould this be performed at the bedside?->YesFINAL REPORT Chest one view. Clinical history: evaluation of pulmonary edema Comparison: 09/13/2018 Discussion: A frontal chest is provided. Cardiomediastinal contours are unchanged. Stable mild bibasilar opacity. No new consolidation, javed pulmonary edema, pneumothorax or significant effusion. Signed: Josefa Dickey Verified Date/Time: 09/14/2018 08:23:02 Reading Location: [facility] Radiology Reading Room C METABOLIC [id number] 06:25:00 * Test Item Value Reference Range Comments SODIUM (BEAKER) (test xwjg=568) 136 meq/L 136-145 POTASSIUM (BEAKER) (test oyji=550) 4.2 meq/L 3.5-5.1 Specimen slightly hemolyzed CHLORIDE (BEAKER) (test bsza=195) 96 meq/L 98-107 CO2 (BEAKER) (test doca=532) 28 meq/L 22-29 BLOOD UREA NITROGEN (BEAKER) (test uicm=539) 21 mg/dL 7-21 CREATININE (BEAKER) (test mcei=933) 1.45 mg/dL 0.57-1.25 Specimen slightly hemolyzed GLUCOSE RANDOM (BEAKER) (test yfdm=929) 93 mg/dL 70-105 CALCIUM (BEAKER) (test sttl=451) 9.7 mg/dL 8.4-10.2 EGFR (BEAKER) (test hvzs=3290) 37 mL/min/1.73 sq m ESTIMATED GFR IS NOT ACCURATE CREATININE CLEARANCE IN PREDICTING GLOMERULAR FILTRATION RATE. ESTIMATED GFR IS NOT APPLICABLE FOR DIALYSIS PATIENTS. [id number] 06:19:00* Test Item Value Reference Range Comments PHOSPHORUS (BEAKER) (test boml=364) 4.3 mg/dL 2.3-4.7 [id number] 06:19:00* Test Item Value Reference Range Comments MAGNESIUM (BEAKER) (test umph=210) 1.2 mg/dL 1.6-2.6 BASIC METABOLIC [id number] 06:19:00* Test Item Value Reference Range Comments SODIUM (BEAKER) (test zsqt=778) 136 meq/L 136-145 POTASSIUM (BEAKER) (test wtye=321) 4.1 meq/L 3.5-5.1 CHLORIDE (BEAKER) (test cami=839) 96 meq/L 98-107 CO2 (BEAKER) (test clez=179) 28 meq/L 22-29 BLOOD UREA NITROGEN (BEAKER) (test fljj=207) 21 mg/dL 7-21 CREATININE (BEAKER) (test qvos=642) 1.44 mg/dL 0.57-1.25 GLUCOSE RANDOM (BEAKER) (test xkty=318) 92 mg/dL 70-105 CALCIUM (BEAKER) (test prdg=797) 9.7 mg/dL 8.4-10.2 EGFR (BEAKER) (test xlde=3363) 37 mL/min/1.73 sq m ESTIMATED GFR IS NOT ACCURATE CREATININE CLEARANCE IN PREDICTING GLOMERULAR FILTRATION RATE. ESTIMATED GFR IS NOT APPLICABLE FOR DIALYSIS PATIENTS. PT/[id number] 06:16:00* Test Item Value Reference Range Comments PROTIME (BEAKER) (test lfxq=166) 15.8 seconds 11.7-14.7 INR (BEAKER) (test ukpg=263) 1.2 <=5.9 PARTIAL THROMBOPLASTIN TIME (BEAKER) (test qszm=978) 52.8 seconds 22.5-36.0 RECOMMENDED COUMADIN/WARFARIN INR THERAPY RANGESSTANDARD DOSE: 2.0 - 3.0 Inclu hola: PROPHYLAXIS for venous thrombosis, systemic embolization; TREATMENT for rodrigo ous thrombosis and/or pulmonary embolus.HIGH RISK: Target INR is 2.5-3.5 for pat ients with mechanical heart valves.CBC W/PLT COUNT & AUTO [id number] 06:06:00* Test Item Value Reference Range Comments WHITE BLOOD CELL COUNT (BEAKER) (test okdw=692) 11.1 K/ L 3.5-10.5 RED BLOOD CELL COUNT (BEAKER) (test tfre=804) 3.83 M/ L 3.93-5.22 HEMOGLOBIN (BEAKER) (test vela=850) 8.8 GM/DL 11.2-15.7 HEMATOCRIT (BEAKER) (test zvju=539) 30.3 % 34.1-44.9 MEAN CORPUSCULAR VOLUME (BEAKER) (test cbyr=871) 79.1 fL 79.4-94.8 MEAN CORPUSCULAR HEMOGLOBIN (BEAKER) (test zpvc=046) 23.0 pg 25.6-32.2 MEAN CORPUSCULAR HEMOGLOBIN CONC (BEAKER) (test bfjj=500) 29.0 GM/DL 32.2-35.5 RED CELL DISTRIBUTION WIDTH (BEAKER) (test sphn=063) 17.4 % 11.7-14.4 PLATELET COUNT (BEAKER) (test dqct=243) 496 K/CU MM 150-450 MEAN PLATELET VOLUME (BEAKER) (test dpoh=919) 10.1 fL 9.4-12.3 NUCLEATED RED BLOOD CELLS (BEAKER) (test qxyc=138) 0 /100 WBC 0-0 NEUTROPHILS RELATIVE PERCENT (BEAKER) (test pgau=047) 76 % LYMPHOCYTES RELATIVE PERCENT (BEAKER) (test dtph=608) 13 % MONOCYTES RELATIVE PERCENT (BEAKER) (test ddmm=808) 7 % EOSINOPHILS RELATIVE PERCENT (BEAKER) (test vlpd=119) 2 % BASOPHILS RELATIVE PERCENT (BEAKER) (test dyqk=069) 0 % NEUTROPHILS ABSOLUTE COUNT (BEAKER) (test actq=197) 8.43 K/ L 1.56-6.13 LYMPHOCYTES ABSOLUTE COUNT (BEAKER) (test bfep=128) 1.49 K/ L 1.18-3.74 MONOCYTES ABSOLUTE COUNT (BEAKER) (test hnmw=514) 0.80 K/ L 0.24-0.36 EOSINOPHILS ABSOLUTE COUNT (BEAKER) (test xvwk=207) 0.27 K/ L 0.04-0.36 BASOPHILS ABSOLUTE COUNT (BEAKER) (test tmku=289) 0.03 K/ L 0.01-0.08 IMMATURE GRANULOCYTES-RELATIVE PERCENT (BEAKER) (test yajz=7422) 1 % 0-1 CBC W/PLT COUNT & AUTO [id number] 06:06:00* Test Item Value Reference Range Comments WHITE BLOOD CELL COUNT (BEAKER) (test szbu=449) 11.1 K/ L 3.5-10.5 RED BLOOD CELL COUNT (BEAKER) (test wtwi=126) 3.81 M/ L 3.93-5.22 HEMOGLOBIN (BEAKER) (test appt=333) 8.9 GM/DL 11.2-15.7 HEMATOCRIT (BEAKER) (test wxvk=997) 30.3 % 34.1-44.9 MEAN CORPUSCULAR VOLUME (BEAKER) (test mzhw=867) 79.5 fL 79.4-94.8 MEAN CORPUSCULAR HEMOGLOBIN (BEAKER) (test bapg=481) 23.4 pg 25.6-32.2 MEAN CORPUSCULAR HEMOGLOBIN CONC (BEAKER) (test omun=273) 29.4 GM/DL 32.2-35.5 RED CELL DISTRIBUTION WIDTH (BEAKER) (test thcn=044) 17.3 % 11.7-14.4 PLATELET COUNT (BEAKER) (test dsfj=972) 499 K/CU MM 150-450 MEAN PLATELET VOLUME (BEAKER) (test rala=339) 10.0 fL 9.4-12.3 NUCLEATED RED BLOOD CELLS (BEAKER) (test tzcf=025) 0 /100 WBC 0-0 NEUTROPHILS RELATIVE PERCENT (BEAKER) (test yjbw=704) 76 % LYMPHOCYTES RELATIVE PERCENT (BEAKER) (test bgjr=009) 14 % MONOCYTES RELATIVE PERCENT (BEAKER) (test psxp=788) 7 % EOSINOPHILS RELATIVE PERCENT (BEAKER) (test tmao=618) 3 % BASOPHILS RELATIVE PERCENT (BEAKER) (test pabf=136) 0 % NEUTROPHILS ABSOLUTE COUNT (BEAKER) (test szcq=082) 8.44 K/ L 1.56-6.13 LYMPHOCYTES ABSOLUTE COUNT (BEAKER) (test esje=063) 1.50 K/ L 1.18-3.74 MONOCYTES ABSOLUTE COUNT (BEAKER) (test gbkj=526) 0.74 K/ L 0.24-0.36 EOSINOPHILS ABSOLUTE COUNT (BEAKER) (test hlzy=616) 0.30 K/ L 0.04-0.36 BASOPHILS ABSOLUTE COUNT (BEAKER) (test psns=079) 0.02 K/ L 0.01-0.08 IMMATURE GRANULOCYTES-RELATIVE PERCENT (BEAKER) (test rjvb=6765) 1 % 0-1 POCT-GLUCOSE [id number] 21:22:00* Test Item Value Reference Range Comments POC-GLUCOSE METER (BEAKER) (test vwil=0609) 98 mg/dL 70-110 TESTED AT [facility] [address] [facility] [address] HEMOGLOBIN [id number] 19:34:00* Test Item Value Reference Range Comments HEMOGLOBIN A1C (BEAKER) (test xhpf=496) 6.1 % 4.3-6.1 POCT-GLUCOSE [id number] 18:17:00* Test Item Value Reference Range Comments POC-GLUCOSE METER (BEAKER) (test wymz=4536) 115 mg/dL 70-110 TESTED AT [facility] [address] [facility] [address] POCT-GLUCOSE [id number] 17:08:00* Test Item Value Reference Range Comments POC-GLUCOSE METER (BEAKER) (test qbje=7326) 116 mg/dL 70-110 TESTED AT [facility] [address] [facility] [address] RAD, CHEST, 1 VIEW, NON [id number] 08:31:00Reason for exam:->evaluation of pulmonary edemaShould this be performed at the bedside?->YesFINAL REPORT Chest one view. Clinical history: evaluation of pulmonary edema Comparison: September 12, 2018 Discussion: A frontal chest is provided. Cardiomediastinal contours are unchanged. No new consolidation. Stable retrocardiac opacity. Mild vascular prominence. No pneumothorax or large ef fusion. Signed: Josefa Dickeyeport Verified Date/Time: 09/13/2018 08:31:01 Brenda marqeuz Location: [facility] B1 C013X Ortho Consult Reading Room Electronically jesus alberto d by: JOSEFA DICKEY M.D. on 09/13/2018 08:31 AM BASIC METABOLIC [id number] 06:37:00* Test Item Value Reference Range Comments SODIUM (BEAKER) (test qazf=229) 136 meq/L 136-145 POTASSIUM (BEAKER) (test kxdl=250) 3.9 meq/L 3.5-5.1 CHLORIDE (BEAKER) (test trgx=606) 97 meq/L 98-107 CO2 (BEAKER) (test jmpv=726) 28 meq/L 22-29 BLOOD UREA NITROGEN (BEAKER) (test bdxw=570) 18 mg/dL 7-21 CREATININE (BEAKER) (test cmfd=925) 1.18 mg/dL 0.57-1.25 GLUCOSE RANDOM (BEAKER) (test crmg=169) 88 mg/dL 70-105 CALCIUM (BEAKER) (test nhlg=896) 9.9 mg/dL 8.4-10.2 EGFR (BEAKER) (test tqhf=3167) 47 mL/min/1.73 sq m ESTIMATED GFR IS NOT ACCURATE CREATININE CLEARANCE IN PREDICTING GLOMERULAR FILTRATION RATE. ESTIMATED GFR IS NOT APPLICABLE FOR DIALYSIS PATIENTS. [id number] 06:12:00* Test Item Value Reference Range Comments PROTIME (BEAKER) (test lrfp=594) 16.0 seconds 11.7-14.7 INR (BEAKER) (test rikf=470) 1.3 <=5.9 PARTIAL THROMBOPLASTIN TIME (BEAKER) (test rvem=236) 62.1 seconds 22.5-36.0 RECOMMENDED COUMADIN/WARFARIN INR THERAPY RANGESSTANDARD DOSE: 2.0 - 3.0 Inclu hola: PROPHYLAXIS for venous thrombosis, systemic embolization; TREATMENT for rodrigo ous thrombosis and/or pulmonary embolus.HIGH RISK: Target INR is 2.5-3.5 for pat ients with mechanical heart valves.CBC W/PLT COUNT & AUTO [id number] 06:10:00* Test Item Value Reference Range Comments WHITE BLOOD CELL COUNT (BEAKER) (test dtrc=561) 10.8 K/ L 3.5-10.5 RED BLOOD CELL COUNT (BEAKER) (test orbf=645) 3.71 M/ L 3.93-5.22 HEMOGLOBIN (BEAKER) (test sxal=558) 8.7 GM/DL 11.2-15.7 HEMATOCRIT (BEAKER) (test uzuq=399) 29.1 % 34.1-44.9 MEAN CORPUSCULAR VOLUME (BEAKER) (test zccm=068) 78.4 fL 79.4-94.8 MEAN CORPUSCULAR HEMOGLOBIN (BEAKER) (test omzc=484) 23.5 pg 25.6-32.2 MEAN CORPUSCULAR HEMOGLOBIN CONC (BEAKER) (test bbod=694) 29.9 GM/DL 32.2-35.5 RED CELL DISTRIBUTION WIDTH (BEAKER) (test dngv=494) 17.3 % 11.7-14.4 PLATELET COUNT (BEAKER) (test hxsl=286) 483 K/CU MM 150-450 MEAN PLATELET VOLUME (BEAKER) (test rflf=189) 9.8 fL 9.4-12.3 NUCLEATED RED BLOOD CELLS (BEAKER) (test ngbr=538) 0 /100 WBC 0-0 NEUTROPHILS RELATIVE PERCENT (BEAKER) (test rpqc=111) 76 % LYMPHOCYTES RELATIVE PERCENT (BEAKER) (test rtou=088) 12 % MONOCYTES RELATIVE PERCENT (BEAKER) (test pqnr=392) 7 % EOSINOPHILS RELATIVE PERCENT (BEAKER) (test qypr=987) 4 % BASOPHILS RELATIVE PERCENT (BEAKER) (test fptn=724) 0 % NEUTROPHILS ABSOLUTE COUNT (BEAKER) (test kexg=717) 8.17 K/ L 1.56-6.13 LYMPHOCYTES ABSOLUTE COUNT (BEAKER) (test jlih=205) 1.29 K/ L 1.18-3.74 MONOCYTES ABSOLUTE COUNT (BEAKER) (test owee=472) 0.77 K/ L 0.24-0.36 EOSINOPHILS ABSOLUTE COUNT (BEAKER) (test njhe=344) 0.40 K/ L 0.04-0.36 BASOPHILS ABSOLUTE COUNT (BEAKER) (test orah=372) 0.03 K/ L 0.01-0.08 IMMATURE GRANULOCYTES-RELATIVE PERCENT (BEAKER) (test rnja=0943) 1 % 0-1 [id number] 05:48:00* Test Item Value Reference Range Comments PHOSPHORUS (BEAKER) (test khkb=134) 4.1 mg/dL 2.3-4.7 [id number] 05:48:00* Test Item Value Reference Range Comments MAGNESIUM (BEAKER) (test twzu=951) 1.1 mg/dL 1.6-2.6 BASIC METABOLIC [id number] 05:48:00* Test Item Value Reference Range Comments SODIUM (BEAKER) (test veti=500) 135 meq/L 136-145 POTASSIUM (BEAKER) (test spsr=189) 3.8 meq/L 3.5-5.1 CHLORIDE (BEAKER) (test zikq=723) 96 meq/L 98-107 CO2 (BEAKER) (test vzlq=911) 30 meq/L 22-29 BLOOD UREA NITROGEN (BEAKER) (test otoz=825) 18 mg/dL 7-21 CREATININE (BEAKER) (test uvlj=338) 1.20 mg/dL 0.57-1.25 GLUCOSE RANDOM (BEAKER) (test mmmf=605) 90 mg/dL 70-105 CALCIUM (BEAKER) (test dgiw=911) 9.7 mg/dL 8.4-10.2 EGFR (BEAKER) (test jwny=0494) 46 mL/min/1.73 sq m ESTIMATED GFR IS NOT ACCURATE CREATININE CLEARANCE IN PREDICTING GLOMERULAR FILTRATION RATE. ESTIMATED GFR IS NOT APPLICABLE FOR DIALYSIS PATIENTS. CBC W/PLT COUNT & AUTO [id number] 05:39:00* Test Item Value Reference Range Comments WHITE BLOOD CELL COUNT (BEAKER) (test bref=245) 11.4 K/ L 3.5-10.5 RED BLOOD CELL COUNT (BEAKER) (test ctxo=573) 3.66 M/ L 3.93-5.22 HEMOGLOBIN (BEAKER) (test lknb=657) 8.6 GM/DL 11.2-15.7 HEMATOCRIT (BEAKER) (test mbrz=500) 28.7 % 34.1-44.9 MEAN CORPUSCULAR VOLUME (BEAKER) (test nvsz=473) 78.4 fL 79.4-94.8 MEAN CORPUSCULAR HEMOGLOBIN (BEAKER) (test lqhx=654) 23.5 pg 25.6-32.2 MEAN CORPUSCULAR HEMOGLOBIN CONC (BEAKER) (test mynb=139) 30.0 GM/DL 32.2-35.5 RED CELL DISTRIBUTION WIDTH (BEAKER) (test vmdv=152) 17.3 % 11.7-14.4 PLATELET COUNT (BEAKER) (test ydmx=351) 502 K/CU MM 150-450 MEAN PLATELET VOLUME (BEAKER) (test jsuw=852) 10.4 fL 9.4-12.3 NUCLEATED RED BLOOD CELLS (BEAKER) (test rsja=531) 0 /100 WBC 0-0 NEUTROPHILS RELATIVE PERCENT (BEAKER) (test jgyk=950) 78 % LYMPHOCYTES RELATIVE PERCENT (BEAKER) (test xald=125) 11 % MONOCYTES RELATIVE PERCENT (BEAKER) (test picd=182) 7 % EOSINOPHILS RELATIVE PERCENT (BEAKER) (test whzr=002) 4 % BASOPHILS RELATIVE PERCENT (BEAKER) (test nhnv=875) 0 % NEUTROPHILS ABSOLUTE COUNT (BEAKER) (test otol=566) 8.84 K/ L 1.56-6.13 LYMPHOCYTES ABSOLUTE COUNT (BEAKER) (test emfy=916) 1.27 K/ L 1.18-3.74 MONOCYTES ABSOLUTE COUNT (BEAKER) (test gosc=159) 0.79 K/ L 0.24-0.36 EOSINOPHILS ABSOLUTE COUNT (BEAKER) (test flju=391) 0.41 K/ L 0.04-0.36 BASOPHILS ABSOLUTE COUNT (BEAKER) (test drcg=619) 0.03 K/ L 0.01-0.08 IMMATURE GRANULOCYTES-RELATIVE PERCENT (BEAKER) (test pnpa=8595) 1 % 0-1 POCT-GLUCOSE [id number] 22:40:00* Test Item Value Reference Range Comments POC-GLUCOSE METER (BEAKER) (test ibdl=2906) 92 mg/dL 70-110 TESTED AT [address] [address] POCT-GLUCOSE [id number] 21:58:00* Test Item Value Reference Range Comments POC-GLUCOSE METER (BEAKER) (test wppi=5717) 59 mg/dL 70-110 Notified GAUTAM HARTLEY/TESTED AT [address] [address] POCT-GLUCOSE [id number] 17:59:00* Test Item Value Reference Range Comments POC-GLUCOSE METER (BEAKER) (test jiit=9979) 74 mg/dL 70-110 TESTED AT [address] [address] POCT-GLUCOSE [id number] 17:28:00* Test Item Value Reference Range Comments POC-GLUCOSE METER (BEAKER) (test iqdc=5032) 113 mg/dL 70-110 TESTED AT [address] [address] RAD, CHEST, 1 VIEW, NON [id number] 08:56:00Reason for exam:->evaluation of pulmonary edemaShould this be performed at the bedside?->YesFINAL REPORT Chest one view. Clinical history: evaluation of pulmonary edema Comparison: 09/11/2018 Discussion: A frontal chest is provided. Cardiomediastinal contours are unchanged. No javed pulmonary edema. Stable retrocardiac opacity. No pneumothorax. There are small bilateral effusions. Signed: Josefa Dickey Verified Date/Time: 09/12/2018 08:56:57 Reading Location: [facility] Radiology Reading Room -GLUCOSE [id number] 07:55:00* Test Item Value Reference Range Comments POC-GLUCOSE METER (BEAKER) (test emih=4539) 93 mg/dL 70-110 TESTED AT [facility] [address] [facility] [address] [id number] 05:59:00* Test Item Value Reference Range Comments PHOSPHORUS (BEAKER) (test acqp=740) 3.7 mg/dL 2.3-4.7 [id number] 05:59:00* Test Item Value Reference Range Comments MAGNESIUM (BEAKER) (test uvrv=527) 1.2 mg/dL 1.6-2.6 BASIC METABOLIC [id number] 05:59:00* Test Item Value Reference Range Comments SODIUM (BEAKER) (test ywbs=345) 137 meq/L 136-145 POTASSIUM (BEAKER) (test iijz=968) 4.2 meq/L 3.5-5.1 CHLORIDE (BEAKER) (test fedh=805) 99 meq/L 98-107 CO2 (BEAKER) (test npgf=355) 30 meq/L 22-29 BLOOD UREA NITROGEN (BEAKER) (test fflw=856) 15 mg/dL 7-21 CREATININE (BEAKER) (test swuc=838) 0.84 mg/dL 0.57-1.25 GLUCOSE RANDOM (BEAKER) (test pfkn=934) 72 mg/dL 70-105 CALCIUM (BEAKER) (test rbzs=190) 10.1 mg/dL 8.4-10.2 EGFR (BEAKER) (test blak=7147) 69 mL/min/1.73 sq m ESTIMATED GFR IS NOT ACCURATE CREATININE CLEARANCE IN PREDICTING GLOMERULAR FILTRATION RATE. ESTIMATED GFR IS NOT APPLICABLE FOR DIALYSIS PATIENTS. [id number] 05:53:00* Test Item Value Reference Range Comments PROTIME (BEAKER) (test apco=466) 15.8 seconds 11.7-14.7 INR (BEAKER) (test ymbm=419) 1.2 <=5.9 PARTIAL THROMBOPLASTIN TIME (BEAKER) (test irnu=808) 51.5 seconds 22.5-36.0 RECOMMENDED COUMADIN/WARFARIN INR THERAPY RANGESSTANDARD DOSE: 2.0 - 3.0 Inclu hola: PROPHYLAXIS for venous thrombosis, systemic embolization; TREATMENT for rodrigo ous thrombosis and/or pulmonary embolus.HIGH RISK: Target INR is 2.5-3.5 for pat ients with mechanical heart valves.CBC W/PLT COUNT & AUTO [id number] 05:47:00* Test Item Value Reference Range Comments WHITE BLOOD CELL COUNT (BEAKER) (test ltkf=261) 13.3 K/ L 3.5-10.5 RED BLOOD CELL COUNT (BEAKER) (test uiow=248) 3.74 M/ L 3.93-5.22 HEMOGLOBIN (BEAKER) (test hssx=098) 8.7 GM/DL 11.2-15.7 HEMATOCRIT (BEAKER) (test gfbx=555) 29.3 % 34.1-44.9 MEAN CORPUSCULAR VOLUME (BEAKER) (test gtgx=401) 78.3 fL 79.4-94.8 MEAN CORPUSCULAR HEMOGLOBIN (BEAKER) (test vqdl=092) 23.3 pg 25.6-32.2 MEAN CORPUSCULAR HEMOGLOBIN CONC (BEAKER) (test svzn=121) 29.7 GM/DL 32.2-35.5 RED CELL DISTRIBUTION WIDTH (BEAKER) (test zabh=320) 17.2 % 11.7-14.4 PLATELET COUNT (BEAKER) (test tqry=199) 542 K/CU MM 150-450 MEAN PLATELET VOLUME (BEAKER) (test gpin=853) 10.1 fL 9.4-12.3 NUCLEATED RED BLOOD CELLS (BEAKER) (test jqjg=289) 0 /100 WBC 0-0 NEUTROPHILS RELATIVE PERCENT (BEAKER) (test jcyd=118) 82 % LYMPHOCYTES RELATIVE PERCENT (BEAKER) (test wbok=638) 9 % MONOCYTES RELATIVE PERCENT (BEAKER) (test pufq=422) 6 % EOSINOPHILS RELATIVE PERCENT (BEAKER) (test jiwu=354) 3 % BASOPHILS RELATIVE PERCENT (BEAKER) (test vrri=164) 0 % NEUTROPHILS ABSOLUTE COUNT (BEAKER) (test okmn=682) 10.81 K/ L 1.56-6.13 LYMPHOCYTES ABSOLUTE COUNT (BEAKER) (test kqna=658) 1.19 K/ L 1.18-3.74 MONOCYTES ABSOLUTE COUNT (BEAKER) (test nhvw=519) 0.80 K/ L 0.24-0.36 EOSINOPHILS ABSOLUTE COUNT (BEAKER) (test lfcu=865) 0.34 K/ L 0.04-0.36 BASOPHILS ABSOLUTE COUNT (BEAKER) (test vfwd=417) 0.03 K/ L 0.01-0.08 IMMATURE GRANULOCYTES-RELATIVE PERCENT (BEAKER) (test bojm=7573) 1 % 0-1 POCT-GLUCOSE [id number] 21:32:00* Test Item Value Reference Range Comments POC-GLUCOSE METER (BEAKER) (test rmyb=4408) 127 mg/dL 70-110 TESTED AT [facility] [address] [facility] [address] POCT-GLUCOSE [id number] 18:04:00* Test Item Value Reference Range Comments POC-GLUCOSE METER (BEAKER) (test oqqs=4346) 86 mg/dL 70-110 TESTED AT [place] [id number] [facility] [address] POCT-GLUCOSE [id number] 18:04:00* Test Item Value Reference Range Comments POC-GLUCOSE METER (BEAKER) (test hgto=8190) 61 mg/dL 70-110 TESTED AT [place] [id number] [facility] [address] POCT-GLUCOSE [id number] 12:28:00* Test Item Value Reference Range Comments POC-GLUCOSE METER (BEAKER) (test fbxs=5037) 70 mg/dL 70-110 TESTED AT [place] [id number] [facility] [address] CT, [id number] 10:48:00FINAL REPORT CT abdomen and pelvis with contrast [...] large bowel obstruction. No apparent bowel wall t hickening. Again seen is a left lower quadrant enterostomy. No lymphadenopa thy is seen. No abdominal aortic aneurysm. No aggressive osseous lesion. Imp ression: 1. Unchanged right lower quadrant fluid collection, with percutaneous d rainage catheter terminating at the anteroinferior margin.2. No new fluid collec tion is seen.3. Unchanged mild bilateral hydronephrosis secondary to a large com plex central pelvic mass.4. Unchanged small bilateral pleural effusions. Signed: John Moreno Verified Date/Time: 09/11/2018 10:48:56 Reading Locat ion: [facility] Diagnostic Imaging Reading Room - [facility] F1 1120 Electronically si gned by: JOHN MORENO MD on 09/11/2018 10:48 AM RAD, CHEST, 1 VIEW, NON DEPT 2018-09-11 08:26:00Reason for exam:->evaluation of pulmonary edemaShould this be performed at the bedside?->YesFINAL REPORT Chest, one view. HISTORY: evaluation of pulmonary edema COMPARISON: Radiograph from 09/10/2018 IMPRESSION: There is a new rounded opacity over the right lateral midlung which is most likely due to atelectasis. Close attention on follow-up imaging is recommended. The left retrocardiac atelectasis has slightly decreased as has a small left pleural effusion. No pulmonary edema. No pneumothorax. The cardiac silhouette is unchanged. No acute bony abnormality. Signed: Javier Carrion Verified Date/Time: 09/11/2018 08:26:24 Reading Location: [facility] Radiology Reading Room -GLUCOSE [id number] 08:07:00* Test Item Value Reference Range Comments POC-GLUCOSE METER (BEAKER) (test epnu=0465) 84 mg/dL 70-110 TESTED AT [facility] [address] [facility] [address] BASIC METABOLIC [id number] 06:55:00* Test Item Value Reference Range Comments SODIUM (BEAKER) (test gpof=411) 141 meq/L 136-145 POTASSIUM (BEAKER) (test dewp=187) 3.4 meq/L 3.5-5.1 CHLORIDE (BEAKER) (test dyyu=162) 101 meq/L 98-107 CO2 (BEAKER) (test jokj=710) 29 meq/L 22-29 BLOOD UREA NITROGEN (BEAKER) (test wvfs=159) 12 mg/dL 7-21 CREATININE (BEAKER) (test goqg=274) 0.68 mg/dL 0.57-1.25 GLUCOSE RANDOM (BEAKER) (test tovh=224) 82 mg/dL 70-105 CALCIUM (BEAKER) (test owmy=027) 10.4 mg/dL 8.4-10.2 EGFR (BEAKER) (test wimt=5128) 89 mL/min/1.73 sq m ESTIMATED GFR IS NOT ACCURATE CREATININE CLEARANCE IN PREDICTING GLOMERULAR FILTRATION RATE. ESTIMATED GFR IS NOT APPLICABLE FOR DIALYSIS PATIENTS. [id number] 06:55:00* Test Item Value Reference Range Comments PHOSPHORUS (BEAKER) (test vynj=686) 3.3 mg/dL 2.3-4.7 [id number] 06:55:00* Test Item Value Reference Range Comments MAGNESIUM (BEAKER) (test ynlt=342) 1.6 mg/dL 1.6-2.6 BASIC METABOLIC [id number] 06:55:00* Test Item Value Reference Range Comments SODIUM (BEAKER) (test oapv=620) 140 meq/L 136-145 POTASSIUM (BEAKER) (test seyt=104) 3.3 meq/L 3.5-5.1 CHLORIDE (BEAKER) (test vnwp=758) 101 meq/L 98-107 CO2 (BEAKER) (test ailu=190) 30 meq/L 22-29 BLOOD UREA NITROGEN (BEAKER) (test twhp=293) 12 mg/dL 7-21 CREATININE (BEAKER) (test wjvb=112) 0.68 mg/dL 0.57-1.25 GLUCOSE RANDOM (BEAKER) (test umua=373) 82 mg/dL 70-105 CALCIUM (BEAKER) (test fhsz=723) 10.5 mg/dL 8.4-10.2 EGFR (BEAKER) (test ppqe=8291) 89 mL/min/1.73 sq m ESTIMATED GFR IS NOT ACCURATE CREATININE CLEARANCE IN PREDICTING GLOMERULAR FILTRATION RATE. ESTIMATED GFR IS NOT APPLICABLE FOR DIALYSIS PATIENTS. PT/[id number] 06:51:00* Test Item Value Reference Range Comments PROTIME (BEAKER) (test dmzt=264) 15.2 seconds 11.7-14.7 INR (BEAKER) (test nsns=937) 1.2 <=5.9 PARTIAL THROMBOPLASTIN TIME (BEAKER) (test otqo=826) 52.6 seconds 22.5-36.0 RECOMMENDED COUMADIN/WARFARIN INR THERAPY RANGESSTANDARD DOSE: 2.0 - 3.0 Inclu hola: PROPHYLAXIS for venous thrombosis, systemic embolization; TREATMENT for rodrigo ous thrombosis and/or pulmonary embolus.HIGH RISK: Target INR is 2.5-3.5 for pat ients with mechanical heart valves.CBC W/PLT COUNT & AUTO [id number] 06:46:00* Test Item Value Reference Range Comments WHITE BLOOD CELL COUNT (BEAKER) (test xkzm=310) 10.8 K/ L 3.5-10.5 RED BLOOD CELL COUNT (BEAKER) (test fzwv=340) 3.68 M/ L 3.93-5.22 HEMOGLOBIN (BEAKER) (test kueu=542) 8.5 GM/DL 11.2-15.7 HEMATOCRIT (BEAKER) (test hvem=967) 28.8 % 34.1-44.9 MEAN CORPUSCULAR VOLUME (BEAKER) (test ayyp=130) 78.3 fL 79.4-94.8 MEAN CORPUSCULAR HEMOGLOBIN (BEAKER) (test viij=774) 23.1 pg 25.6-32.2 MEAN CORPUSCULAR HEMOGLOBIN CONC (BEAKER) (test zjny=344) 29.5 GM/DL 32.2-35.5 RED CELL DISTRIBUTION WIDTH (BEAKER) (test oahb=337) 17.2 % 11.7-14.4 PLATELET COUNT (BEAKER) (test zlch=177) 629 K/CU MM 150-450 MEAN PLATELET VOLUME (BEAKER) (test yivu=689) 10.2 fL 9.4-12.3 NUCLEATED RED BLOOD CELLS (BEAKER) (test tigs=678) 0 /100 WBC 0-0 NEUTROPHILS RELATIVE PERCENT (BEAKER) (test keys=113) 74 % LYMPHOCYTES RELATIVE PERCENT (BEAKER) (test jyoh=655) 16 % MONOCYTES RELATIVE PERCENT (BEAKER) (test oizs=651) 8 % EOSINOPHILS RELATIVE PERCENT (BEAKER) (test yugc=532) 1 % BASOPHILS RELATIVE PERCENT (BEAKER) (test qagg=694) 0 % NEUTROPHILS ABSOLUTE COUNT (BEAKER) (test bdss=163) 8.00 K/ L 1.56-6.13 LYMPHOCYTES ABSOLUTE COUNT (BEAKER) (test yjdk=446) 1.76 K/ L 1.18-3.74 MONOCYTES ABSOLUTE COUNT (BEAKER) (test hcsa=025) 0.82 K/ L 0.24-0.36 EOSINOPHILS ABSOLUTE COUNT (BEAKER) (test lyoz=068) 0.13 K/ L 0.04-0.36 BASOPHILS ABSOLUTE COUNT (BEAKER) (test emlx=494) 0.04 K/ L 0.01-0.08 IMMATURE GRANULOCYTES-RELATIVE PERCENT (BEAKER) (test sjsm=7914) 1 % 0-1 POCT-GLUCOSE [id number] 21:10:00* Test Item Value Reference Range Comments POC-GLUCOSE METER (BEAKER) (test oelt=1654) 154 mg/dL 70-110 TESTED AT [facility] [address] [facility] [address] POCT-GLUCOSE [id number] 18:10:00* Test Item Value Reference Range Comments POC-GLUCOSE METER (BEAKER) (test ixqq=7663) 101 mg/dL 70-110 TESTED AT [place] [address] [facility] [address] POCT-GLUCOSE [id number] 13:01:00* Test Item Value Reference Range Comments POC-GLUCOSE METER (BEAKER) (test csuy=0611) 159 mg/dL 70-110 TESTED AT [place] [address] [facility] [address] POCT-GLUCOSE [id number] 12:46:00* Test Item Value Reference Range Comments POC-GLUCOSE METER (BEAKER) (test gmbs=9126) 127 mg/dL 70-110 TESTED AT [place] [address] [facility] [address] RAD, CHEST, 1 VIEW, NON [id number] 10:00:00Reason for exam:->evaluation of pulmonary edemaShould this be performed at the bedside?->YesFINAL REPORT Portable chest. CLINICAL HISTORY: evaluation of pulmonary edema. COMPARISON STUDY: Chest x-ray from yesterday. FINDINGS: The cardiac silhouette is unremarkable. The pulmonary parenchyma demonstrates increased reticular markings with atelectatic changes in the left lung base. No pneumothorax is seen. Degenerative changes are noted. IMPRESSION: No significant change. Signed: Samantha Mcknight MDReport Verified Date/Time: 09/10/2018 10:00:16 Reading Location: [facility] C013Y CT Body Reading Room /[id number] 07:45:00* Test Item Value Reference Range Comments PROTIME (BEAKER) (test xqgh=363) 15.7 seconds 11.7-14.7 INR (BEAKER) (test akij=924) 1.2 <=5.9 PARTIAL THROMBOPLASTIN TIME (BEAKER) (test komj=626) 54.8 seconds 22.5-36.0 RECOMMENDED COUMADIN/WARFARIN INR THERAPY RANGESSTANDARD DOSE: 2.0 - 3.0 Inclu hola: PROPHYLAXIS for venous thrombosis, systemic embolization; TREATMENT for rodrigo ous thrombosis and/or pulmonary embolus.HIGH RISK: Target INR is 2.5-3.5 for pat ients with mechanical heart valves.[id number] 07:37:00* Test Item Value Reference Range Comments PHOSPHORUS (BEAKER) (test gngu=613) 3.2 mg/dL 2.3-4.7 [id number] 07:37:00* Test Item Value Reference Range Comments MAGNESIUM (BEAKER) (test iiec=750) 1.3 mg/dL 1.6-2.6 BASIC METABOLIC [id number] 07:37:00* Test Item Value Reference Range Comments SODIUM (BEAKER) (test itbu=089) 140 meq/L 136-145 POTASSIUM (BEAKER) (test hrkc=889) 3.1 meq/L 3.5-5.1 CHLORIDE (BEAKER) (test rfhk=124) 101 meq/L 98-107 CO2 (BEAKER) (test cnmq=157) 29 meq/L 22-29 BLOOD UREA NITROGEN (BEAKER) (test bgsf=791) 12 mg/dL 7-21 CREATININE (BEAKER) (test btuw=218) 0.66 mg/dL 0.57-1.25 GLUCOSE RANDOM (BEAKER) (test xlwg=683) 112 mg/dL 70-105 CALCIUM (BEAKER) (test ddjh=827) 10.0 mg/dL 8.4-10.2 EGFR (BEAKER) (test dqzq=4467) 92 mL/min/1.73 sq m ESTIMATED GFR IS NOT ACCURATE CREATININE CLEARANCE IN PREDICTING GLOMERULAR FILTRATION RATE. ESTIMATED GFR IS NOT APPLICABLE FOR DIALYSIS PATIENTS. CBC W/PLT COUNT & AUTO [id number] 07:34:00* Test Item Value Reference Range Comments WHITE BLOOD CELL COUNT (BEAKER) (test urcj=177) 11.2 K/ L 3.5-10.5 RED BLOOD CELL COUNT (BEAKER) (test higi=197) 3.60 M/ L 3.93-5.22 HEMOGLOBIN (BEAKER) (test rxoq=069) 8.5 GM/DL 11.2-15.7 HEMATOCRIT (BEAKER) (test fcsu=738) 28.4 % 34.1-44.9 MEAN CORPUSCULAR VOLUME (BEAKER) (test qhwd=360) 78.9 fL 79.4-94.8 MEAN CORPUSCULAR HEMOGLOBIN (BEAKER) (test bpxa=380) 23.6 pg 25.6-32.2 MEAN CORPUSCULAR HEMOGLOBIN CONC (BEAKER) (test vmjz=495) 29.9 GM/DL 32.2-35.5 RED CELL DISTRIBUTION WIDTH (BEAKER) (test zqgw=357) 17.1 % 11.7-14.4 PLATELET COUNT (BEAKER) (test vdzv=581) 585 K/CU MM 150-450 MEAN PLATELET VOLUME (BEAKER) (test bmot=707) 9.9 fL 9.4-12.3 NUCLEATED RED BLOOD CELLS (BEAKER) (test vsvk=014) 0 /100 WBC 0-0 NEUTROPHILS RELATIVE PERCENT (BEAKER) (test nlfx=741) 80 % LYMPHOCYTES RELATIVE PERCENT (BEAKER) (test ysgc=582) 12 % MONOCYTES RELATIVE PERCENT (BEAKER) (test xwad=801) 7 % EOSINOPHILS RELATIVE PERCENT (BEAKER) (test crxd=588) 1 % BASOPHILS RELATIVE PERCENT (BEAKER) (test uwtp=208) 0 % NEUTROPHILS ABSOLUTE COUNT (BEAKER) (test ofaf=220) 8.93 K/ L 1.56-6.13 LYMPHOCYTES ABSOLUTE COUNT (BEAKER) (test mdgr=399) 1.30 K/ L 1.18-3.74 MONOCYTES ABSOLUTE COUNT (BEAKER) (test mtnm=739) 0.78 K/ L 0.24-0.36 EOSINOPHILS ABSOLUTE COUNT (BEAKER) (test kody=688) 0.12 K/ L 0.04-0.36 BASOPHILS ABSOLUTE COUNT (BEAKER) (test cbvi=715) 0.02 K/ L 0.01-0.08 IMMATURE GRANULOCYTES-RELATIVE PERCENT (BEAKER) (test yjwe=6746) 0 % 0-1 POCT-GLUCOSE [id number] 21:12:00* Test Item Value Reference Range Comments POC-GLUCOSE METER (BEAKER) (test qexz=0560) 227 mg/dL 70-110 TESTED AT [place] [address] [facility] [address] POCT-GLUCOSE [id number] 17:31:00* Test Item Value Reference Range Comments POC-GLUCOSE METER (BEAKER) (test zvpk=3426) 139 mg/dL 70-110 TESTED AT [place] [address] [facility] [address] POCT-GLUCOSE [id number] 12:57:00* Test Item Value Reference Range Comments POC-GLUCOSE METER (BEAKER) (test bylf=9456) 140 mg/dL 70-110 TESTED AT [place] [address] [facility] [address] RAD, CHEST, 1 VIEW, NON [id number] 12:44:00Reason for exam:->evaluation of pulmonary edemaShould this be performed at the bedside?->YesFINAL REPORT Clinical History: Evaluate for pulmonary edema Comparison Study: September 08, 2018 Findings: The cardiac silhouette is enlarged. Atelectasis or consolidation is seen in the left lung base. The pleural spaces are clear. No significant bony or soft tissue abnormalities are seen. Impression: Cardiomegaly. Atelectasis or consolidation in the left lung base. Signed: Samantha Sifuentes MDReport Verified Date/Time: 09/09/2018 12:44:19 Reading Locatio n: [facility] B1 C013Y CT Body Reading Room -GLUCOSE [id number] 07:53:00* Test Item Value Reference Range Comments POC-GLUCOSE METER (BEAKER) (test duyf=8856) 114 mg/dL 70-110 TESTED AT [facility] [address] [facility] [address] [id number] 07:30:00* Test Item Value Reference Range Comments MAGNESIUM (BEAKER) (test ebgu=606) 1.0 mg/dL 1.6-2.6 CBC W/PLT COUNT & AUTO [id number] 07:05:00* Test Item Value Reference Range Comments WHITE BLOOD CELL COUNT (BEAKER) (test qttd=707) 9.4 K/ L 3.5-10.5 RED BLOOD CELL COUNT (BEAKER) (test rhvd=877) 3.71 M/ L 3.93-5.22 HEMOGLOBIN (BEAKER) (test vdzl=221) 8.7 GM/DL 11.2-15.7 HEMATOCRIT (BEAKER) (test qrnx=489) 29.4 % 34.1-44.9 MEAN CORPUSCULAR VOLUME (BEAKER) (test undw=385) 79.2 fL 79.4-94.8 MEAN CORPUSCULAR HEMOGLOBIN (BEAKER) (test dnfn=754) 23.5 pg 25.6-32.2 MEAN CORPUSCULAR HEMOGLOBIN CONC (BEAKER) (test ybju=559) 29.6 GM/DL 32.2-35.5 RED CELL DISTRIBUTION WIDTH (BEAKER) (test mgzq=861) 17.2 % 11.7-14.4 PLATELET COUNT (BEAKER) (test pjan=579) 599 K/CU MM 150-450 MEAN PLATELET VOLUME (BEAKER) (test fdsn=856) 10.4 fL 9.4-12.3 NUCLEATED RED BLOOD CELLS (BEAKER) (test uxiu=357) 0 /100 WBC 0-0 NEUTROPHILS RELATIVE PERCENT (BEAKER) (test jycy=744) 75 % LYMPHOCYTES RELATIVE PERCENT (BEAKER) (test mvee=035) 16 % MONOCYTES RELATIVE PERCENT (BEAKER) (test rbzk=549) 8 % EOSINOPHILS RELATIVE PERCENT (BEAKER) (test makv=072) 1 % BASOPHILS RELATIVE PERCENT (BEAKER) (test cfcj=893) 0 % NEUTROPHILS ABSOLUTE COUNT (BEAKER) (test wwik=798) 7.08 K/ L 1.56-6.13 LYMPHOCYTES ABSOLUTE COUNT (BEAKER) (test lmmp=309) 1.48 K/ L 1.18-3.74 MONOCYTES ABSOLUTE COUNT (BEAKER) (test dagq=290) 0.71 K/ L 0.24-0.36 EOSINOPHILS ABSOLUTE COUNT (BEAKER) (test nghh=619) 0.07 K/ L 0.04-0.36 BASOPHILS ABSOLUTE COUNT (BEAKER) (test hqie=925) 0.02 K/ L 0.01-0.08 IMMATURE GRANULOCYTES-RELATIVE PERCENT (BEAKER) (test uujt=8484) 1 % 0-1 [id number] 06:57:00* Test Item Value Reference Range Comments PHOSPHORUS (BEAKER) (test bolf=380) 3.3 mg/dL 2.3-4.7 BASIC METABOLIC [id number] 06:57:00* Test Item Value Reference Range Comments SODIUM (BEAKER) (test xeik=586) 142 meq/L 136-145 POTASSIUM (BEAKER) (test jdgu=381) 2.8 meq/L 3.5-5.1 CHLORIDE (BEAKER) (test nysm=443) 101 meq/L 98-107 CO2 (BEAKER) (test axgi=896) 32 meq/L 22-29 BLOOD UREA NITROGEN (BEAKER) (test zrsf=244) 12 mg/dL 7-21 CREATININE (BEAKER) (test ynki=743) 0.62 mg/dL 0.57-1.25 GLUCOSE RANDOM (BEAKER) (test rqvw=180) 93 mg/dL 70-105 CALCIUM (BEAKER) (test qjng=444) 10.2 mg/dL 8.4-10.2 EGFR (BEAKER) (test atry=1696) 99 mL/min/1.73 sq m ESTIMATED GFR IS NOT ACCURATE CREATININE CLEARANCE IN PREDICTING GLOMERULAR FILTRATION RATE. ESTIMATED GFR IS NOT APPLICABLE FOR DIALYSIS PATIENTS. PT/[id number] 06:40:00* Test Item Value Reference Range Comments PROTIME (BEAKER) (test hohf=255) 15.8 seconds 11.7-14.7 INR (BEAKER) (test wkqt=377) 1.3 <=5.9 PARTIAL THROMBOPLASTIN TIME (BEAKER) (test ygmu=838) 48.9 seconds 22.5-36.0 RECOMMENDED COUMADIN/WARFARIN INR THERAPY RANGESSTANDARD DOSE: 2.0 - 3.0 Inclu hola: PROPHYLAXIS for venous thrombosis, systemic embolization; TREATMENT for rodrigo ous thrombosis and/or pulmonary embolus.HIGH RISK: Target INR is 2.5-3.5 for pat ients with mechanical heart valves.POCT-GLUCOSE [id number] 00:59:00* Test Item Value Reference Range Comments POC-GLUCOSE METER (BEAKER) (test hyoe=0180) 137 mg/dL 70-110 TESTED AT [facility] [address] [facility] [address] POCT-GLUCOSE [id number] 18:33:00* Test Item Value Reference Range Comments POC-GLUCOSE METER (BEAKER) (test fjpw=6371) 147 mg/dL 70-110 TESTED AT [facility] [address] [facility] [address] POCT-GLUCOSE [id number] 12:13:00* Test Item Value Reference Range Comments POC-GLUCOSE METER (BEAKER) (test nmob=6544) 85 mg/dL 70-110 TESTED AT [facility] [address] [facility] [address] RAD, CHEST, 1 VIEW, NON [id number] 09:02:00Reason for exam:->evaluation of pulmonary edemaShould this be performed at the bedside?->YesFINAL REPORT Portable chest. CLINICAL HISTORY: evaluation of pulmonary edema. COMPARISON STUDY: Chest x-ray from yesterday. FINDINGS: The cardiac silhouette is enlarged. The pulmonary parenchyma demonstrates increased interstitial markings with atelectatic changes in the left lung base. No pneumothorax is seen. Degenerative changes are noted. IMPRESSION: No significant change. Signed: Samantha Mcknight MDRepyesenia Verified Date/Time: 09/08/2018 09:02:50 Reading Location: [facility] Radiology Reading Room -GLUCOSE [id number] 08:47:00* Test Item Value Reference Range Comments POC-GLUCOSE METER (BEAKER) (test xnbl=6166) 70 mg/dL 70-110 TESTED AT [facility] [address] [facility] [address] [id number] 05:33:00* Test Item Value Reference Range Comments MAGNESIUM (BEAKER) (test scmj=819) 1.1 mg/dL 1.6-2.6 BASIC METABOLIC [id number] 05:33:00* Test Item Value Reference Range Comments SODIUM (BEAKER) (test njiq=270) 138 meq/L 136-145 POTASSIUM (BEAKER) (test twdc=880) 3.1 meq/L 3.5-5.1 CHLORIDE (BEAKER) (test elid=164) 99 meq/L 98-107 CO2 (BEAKER) (test cwyy=724) 28 meq/L 22-29 BLOOD UREA NITROGEN (BEAKER) (test ydtu=129) 14 mg/dL 7-21 CREATININE (BEAKER) (test mgzf=060) 0.62 mg/dL 0.57-1.25 GLUCOSE RANDOM (BEAKER) (test bavq=816) 76 mg/dL 70-105 CALCIUM (BEAKER) (test wypq=640) 10.1 mg/dL 8.4-10.2 EGFR (BEAKER) (test gyrh=9782) 99 mL/min/1.73 sq m ESTIMATED GFR IS NOT ACCURATE CREATININE CLEARANCE IN PREDICTING GLOMERULAR FILTRATION RATE. ESTIMATED GFR IS NOT APPLICABLE FOR DIALYSIS PATIENTS. CBC W/PLT COUNT & AUTO [id number] 05:16:00* Test Item Value Reference Range Comments WHITE BLOOD CELL COUNT (BEAKER) (test qneh=401) 12.3 K/ L 3.5-10.5 RED BLOOD CELL COUNT (BEAKER) (test fxku=555) 3.48 M/ L 3.93-5.22 HEMOGLOBIN (BEAKER) (test phpw=506) 8.2 GM/DL 11.2-15.7 HEMATOCRIT (BEAKER) (test gpiu=830) 27.3 % 34.1-44.9 MEAN CORPUSCULAR VOLUME (BEAKER) (test stqs=810) 78.4 fL 79.4-94.8 MEAN CORPUSCULAR HEMOGLOBIN (BEAKER) (test fzgy=450) 23.6 pg 25.6-32.2 MEAN CORPUSCULAR HEMOGLOBIN CONC (BEAKER) (test xgzg=482) 30.0 GM/DL 32.2-35.5 RED CELL DISTRIBUTION WIDTH (BEAKER) (test xncc=542) 17.2 % 11.7-14.4 PLATELET COUNT (BEAKER) (test enrd=111) 596 K/CU MM 150-450 MEAN PLATELET VOLUME (BEAKER) (test tmtk=507) 10.4 fL 9.4-12.3 NUCLEATED RED BLOOD CELLS (BEAKER) (test ssxg=249) 0 /100 WBC 0-0 NEUTROPHILS RELATIVE PERCENT (BEAKER) (test yfcc=376) 82 % LYMPHOCYTES RELATIVE PERCENT (BEAKER) (test ezsx=978) 10 % MONOCYTES RELATIVE PERCENT (BEAKER) (test xejh=510) 7 % EOSINOPHILS RELATIVE PERCENT (BEAKER) (test yqjh=042) 1 % BASOPHILS RELATIVE PERCENT (BEAKER) (test pzph=141) 0 % NEUTROPHILS ABSOLUTE COUNT (BEAKER) (test vtsx=610) 10.00 K/ L 1.56-6.13 LYMPHOCYTES ABSOLUTE COUNT (BEAKER) (test aasc=707) 1.25 K/ L 1.18-3.74 MONOCYTES ABSOLUTE COUNT (BEAKER) (test pmzn=437) 0.83 K/ L 0.24-0.36 EOSINOPHILS ABSOLUTE COUNT (BEAKER) (test eaqb=143) 0.07 K/ L 0.04-0.36 BASOPHILS ABSOLUTE COUNT (BEAKER) (test pdms=793) 0.02 K/ L 0.01-0.08 IMMATURE GRANULOCYTES-RELATIVE PERCENT (BEAKER) (test muxz=9647) 1 % 0-1 [id number] 04:43:00* Test Item Value Reference Range Comments PHOSPHORUS (BEAKER) (test ubzc=179) 3.6 mg/dL 2.3-4.7 [id number] 04:32:00* Test Item Value Reference Range Comments PROTIME (BEAKER) (test mknm=764) 16.0 seconds 11.7-14.7 INR (BEAKER) (test dxhy=703) 1.3 <=5.9 PARTIAL THROMBOPLASTIN TIME (BEAKER) (test olbs=195) 52.9 seconds 22.5-36.0 RECOMMENDED COUMADIN/WARFARIN INR THERAPY RANGESSTANDARD DOSE: 2.0 - 3.0 Inclu hola: PROPHYLAXIS for venous thrombosis, systemic embolization; TREATMENT for rodrigo ous thrombosis and/or pulmonary embolus.HIGH RISK: Target INR is 2.5-3.5 for pat ients with mechanical heart valves.POCT-GLUCOSE [id number] 02:33:00* Test Item Value Reference Range Comments POC-GLUCOSE METER (BEAKER) (test ykco=9074) 92 mg/dL 70-110 TESTED AT [facility] [address] [facility] [address] POCT-GLUCOSE [id number] 00:48:00* Test Item Value Reference Range Comments POC-GLUCOSE METER (BEAKER) (test acfd=7892) 53 mg/dL 70-110 TESTED AT [place] [id number] [facility] [address] POCT-GLUCOSE [id number] 21:40:00* Test Item Value Reference Range Comments POC-GLUCOSE METER (BEAKER) (test dcid=5279) 81 mg/dL 70-110 TESTED AT [address] [address] POCT-GLUCOSE [id number] 21:14:00* Test Item Value Reference Range Comments POC-GLUCOSE METER (BEAKER) (test olgm=3179) 52 mg/dL 70-110 Notified GAUTAM HARTLEY/TESTED AT [address] [address] POCT-GLUCOSE [id number] 16:42:00* Test Item Value Reference Range Comments POC-GLUCOSE METER (BEAKER) (test hvpe=4374) 76 mg/dL 70-110 TESTED AT [place] [id number] [facility] [address] RAD, CHEST, 1 VIEW, NON [id number] 10:28:00Reason for exam:->evaluation of pulmonary edemaShould this be performed at the bedside?->YesFINAL REPORT Chest dated 09/07/2018 COMPARISON: 09/06/2018 Clinical Information: evaluation of pulmonary edema Comment: Heart is enlarged. Pulmonary vasculature is indistinct. Interstitial disease is seen bilaterally suggestive of vascular congestion or interstitial pulmonary disease improved since prior study. No pleural effusion or pneumothorax is seen. Subsegmental atelectasis is seen in the left lower lobe. Impression: Interval improvement in interstitial pulmonary disease. Signed: Yoselyn Mckennaort Verified Date/Time: 09/07/2018 10:28:03 Reading Location: [facility] Radiology Reading Room [facility] signed by: YOSELYN MCKENNA M.D. on 09/07/2018 10:28 AM POCT-GLUCOSE [id number] 09:56:00* Test Item Value Reference Range Comments POC-GLUCOSE METER (BEAKER) (test qyix=6729) 78 mg/dL 70-110 TESTED AT [facility] [address] [facility] [place] [address] [id number] 05:27:00* Test Item Value Reference Range Comments PHOSPHORUS (BEAKER) (test vixx=908) 3.5 mg/dL 2.3-4.7 [id number] 05:27:00* Test Item Value Reference Range Comments MAGNESIUM (BEAKER) (test dumn=292) 1.3 mg/dL 1.6-2.6 BASIC METABOLIC [id number] 05:27:00* Test Item Value Reference Range Comments SODIUM (BEAKER) (test eeld=229) 142 meq/L 136-145 POTASSIUM (BEAKER) (test fhos=232) 3.1 meq/L 3.5-5.1 CHLORIDE (BEAKER) (test lsiy=727) 102 meq/L 98-107 CO2 (BEAKER) (test qurg=138) 31 meq/L 22-29 BLOOD UREA NITROGEN (BEAKER) (test dfky=038) 16 mg/dL 7-21 CREATININE (BEAKER) (test cvwp=818) 0.61 mg/dL 0.57-1.25 GLUCOSE RANDOM (BEAKER) (test liuq=697) 61 mg/dL 70-105 CALCIUM (BEAKER) (test tnor=969) 10.5 mg/dL 8.4-10.2 EGFR (BEAKER) (test vydq=0827) 100 mL/min/1.73 sq m ESTIMATED GFR IS NOT ACCURATE CREATININE CLEARANCE IN PREDICTING GLOMERULAR FILTRATION RATE. ESTIMATED GFR IS NOT APPLICABLE FOR DIALYSIS PATIENTS. [id number] 05:19:00* Test Item Value Reference Range Comments PROTIME (BEAKER) (test hrec=317) 15.7 seconds 11.7-14.7 INR (BEAKER) (test djul=987) 1.2 <=5.9 PARTIAL THROMBOPLASTIN TIME (BEAKER) (test exzo=734) 49.1 seconds 22.5-36.0 RECOMMENDED COUMADIN/WARFARIN INR THERAPY RANGESSTANDARD DOSE: 2.0 - 3.0 Inclu hola: PROPHYLAXIS for venous thrombosis, systemic embolization; TREATMENT for rodrigo ous thrombosis and/or pulmonary embolus.HIGH RISK: Target INR is 2.5-3.5 for pat ients with mechanical heart valves.CBC W/PLT COUNT & AUTO [id number] 05:15:00* Test Item Value Reference Range Comments WHITE BLOOD CELL COUNT (BEAKER) (test vlzq=947) 12.8 K/ L 3.5-10.5 RED BLOOD CELL COUNT (BEAKER) (test ctas=621) 3.50 M/ L 3.93-5.22 HEMOGLOBIN (BEAKER) (test mjsw=852) 8.2 GM/DL 11.2-15.7 HEMATOCRIT (BEAKER) (test sfqw=160) 27.8 % 34.1-44.9 MEAN CORPUSCULAR VOLUME (BEAKER) (test esqc=784) 79.4 fL 79.4-94.8 MEAN CORPUSCULAR HEMOGLOBIN (BEAKER) (test petf=367) 23.4 pg 25.6-32.2 MEAN CORPUSCULAR HEMOGLOBIN CONC (BEAKER) (test gywh=777) 29.5 GM/DL 32.2-35.5 RED CELL DISTRIBUTION WIDTH (BEAKER) (test fzvv=455) 17.4 % 11.7-14.4 PLATELET COUNT (BEAKER) (test vmtk=760) 615 K/CU MM 150-450 MEAN PLATELET VOLUME (BEAKER) (test qibe=238) 10.5 fL 9.4-12.3 NUCLEATED RED BLOOD CELLS (BEAKER) (test ihkv=580) 0 /100 WBC 0-0 NEUTROPHILS RELATIVE PERCENT (BEAKER) (test xwlp=562) 75 % LYMPHOCYTES RELATIVE PERCENT (BEAKER) (test ehgv=504) 15 % MONOCYTES RELATIVE PERCENT (BEAKER) (test ivmc=192) 8 % EOSINOPHILS RELATIVE PERCENT (BEAKER) (test zkxg=998) 1 % BASOPHILS RELATIVE PERCENT (BEAKER) (test nspq=388) 0 % NEUTROPHILS ABSOLUTE COUNT (BEAKER) (test crvf=353) 9.59 K/ L 1.56-6.13 LYMPHOCYTES ABSOLUTE COUNT (BEAKER) (test djii=156) 1.89 K/ L 1.18-3.74 MONOCYTES ABSOLUTE COUNT (BEAKER) (test emyw=705) 0.98 K/ L 0.24-0.36 EOSINOPHILS ABSOLUTE COUNT (BEAKER) (test afvj=127) 0.18 K/ L 0.04-0.36 BASOPHILS ABSOLUTE COUNT (BEAKER) (test ivlk=921) 0.04 K/ L 0.01-0.08 IMMATURE GRANULOCYTES-RELATIVE PERCENT (BEAKER) (test ihfl=9565) 1 % 0-1 POCT-GLUCOSE [id number] 21:09:00* Test Item Value Reference Range Comments POC-GLUCOSE METER (BEAKER) (test fqfa=9198) 113 mg/dL 70-110 TESTED AT [place] [id number] [facility] [address] POCT-GLUCOSE [id number] 17:43:00* Test Item Value Reference Range Comments POC-GLUCOSE METER (BEAKER) (test smit=0877) 91 mg/dL 70-110 TESTED AT [address] [address] POCT-GLUCOSE [id number] 12:28:00* Test Item Value Reference Range Comments POC-GLUCOSE METER (BEAKER) (test jegz=7971) 126 mg/dL 70-110 TESTED AT [address] [address] RAD, CHEST, 1 VIEW, NON [id number] 09:04:00Reason for exam:->evaluation of pulmonary edemaShould this be performed at the bedside?->YesFINAL REPORT Chest dated 09/06/2018 Clinical Information: evaluation of pulmonary edema Comment: Heart is enlarged. Pulmonary vasculature is indistinct. Interstitial disease is seen bilaterally suggestive of pulmonary edema unchanged from prior study. There is trace left pleural effusion and left lower lobe subsegmental atelectasis. Signed: Yoselyn Mckenna MDReport Verified Date/Time: 09/06/2018 09:04:06 Reading Location: [facility] Radiology Reading Room -GLUCOSE [id number] 08:30:00* Test Item Value Reference Range Comments POC-GLUCOSE METER (BEAKER) (test gjaa=1209) 91 mg/dL 70-110 TESTED AT [address] [address] CBC W/PLT COUNT & AUTO [id number] 05:58:00* Test Item Value Reference Range Comments WHITE BLOOD CELL COUNT (BEAKER) (test bief=515) 13.6 K/ L 3.5-10.5 RED BLOOD CELL COUNT (BEAKER) (test sghb=973) 3.69 M/ L 3.93-5.22 HEMOGLOBIN (BEAKER) (test vgch=924) 8.7 GM/DL 11.2-15.7 HEMATOCRIT (BEAKER) (test uvqo=079) 29.2 % 34.1-44.9 MEAN CORPUSCULAR VOLUME (BEAKER) (test zqqr=248) 79.1 fL 79.4-94.8 MEAN CORPUSCULAR HEMOGLOBIN (BEAKER) (test ltug=089) 23.6 pg 25.6-32.2 MEAN CORPUSCULAR HEMOGLOBIN CONC (BEAKER) (test soqk=731) 29.8 GM/DL 32.2-35.5 RED CELL DISTRIBUTION WIDTH (BEAKER) (test qldz=611) 17.4 % 11.7-14.4 PLATELET COUNT (BEAKER) (test lunj=881) 659 K/CU MM 150-450 MEAN PLATELET VOLUME (BEAKER) (test ftyr=569) 10.7 fL 9.4-12.3 NUCLEATED RED BLOOD CELLS (BEAKER) (test hror=403) 0 /100 WBC 0-0 NEUTROPHILS RELATIVE PERCENT (BEAKER) (test fhah=595) 80 % LYMPHOCYTES RELATIVE PERCENT (BEAKER) (test zycy=562) 12 % MONOCYTES RELATIVE PERCENT (BEAKER) (test alnq=186) 6 % EOSINOPHILS RELATIVE PERCENT (BEAKER) (test caqb=525) 1 % BASOPHILS RELATIVE PERCENT (BEAKER) (test vqrk=072) 0 % NEUTROPHILS ABSOLUTE COUNT (BEAKER) (test fbam=790) 10.78 K/ L 1.56-6.13 LYMPHOCYTES ABSOLUTE COUNT (BEAKER) (test pvix=844) 1.63 K/ L 1.18-3.74 MONOCYTES ABSOLUTE COUNT (BEAKER) (test uusc=003) 0.82 K/ L 0.24-0.36 EOSINOPHILS ABSOLUTE COUNT (BEAKER) (test qxdb=358) 0.18 K/ L 0.04-0.36 BASOPHILS ABSOLUTE COUNT (BEAKER) (test lhdg=005) 0.04 K/ L 0.01-0.08 IMMATURE GRANULOCYTES-RELATIVE PERCENT (BEAKER) (test scdk=2896) 1 % 0-1 [id number] 05:49:00* Test Item Value Reference Range Comments MAGNESIUM (BEAKER) (test eooi=856) 1.4 mg/dL 1.6-2.6 BASIC METABOLIC [id number] 05:43:00* Test Item Value Reference Range Comments SODIUM (BEAKER) (test yjvq=275) 140 meq/L 136-145 POTASSIUM (BEAKER) (test dapb=359) 3.4 meq/L 3.5-5.1 CHLORIDE (BEAKER) (test uewk=871) 101 meq/L 98-107 CO2 (BEAKER) (test pxxz=927) 30 meq/L 22-29 BLOOD UREA NITROGEN (BEAKER) (test aszk=455) 18 mg/dL 7-21 CREATININE (BEAKER) (test dvuf=142) 0.58 mg/dL 0.57-1.25 GLUCOSE RANDOM (BEAKER) (test ciht=607) 86 mg/dL 70-105 CALCIUM (BEAKER) (test lsrl=838) 10.5 mg/dL 8.4-10.2 EGFR (BEAKER) (test dyux=1241) 106 mL/min/1.73 sq m ESTIMATED GFR IS NOT ACCURATE CREATININE CLEARANCE IN PREDICTING GLOMERULAR FILTRATION RATE. ESTIMATED GFR IS NOT APPLICABLE FOR DIALYSIS PATIENTS. [id number] 05:43:00* Test Item Value Reference Range Comments PHOSPHORUS (BEAKER) (test vqst=671) 2.9 mg/dL 2.3-4.7 BASIC METABOLIC [id number] 05:43:00* Test Item Value Reference Range Comments SODIUM (BEAKER) (test xfmj=845) 140 meq/L 136-145 POTASSIUM (BEAKER) (test xzcp=618) 3.4 meq/L 3.5-5.1 CHLORIDE (BEAKER) (test cjio=377) 101 meq/L 98-107 CO2 (BEAKER) (test eivn=818) 30 meq/L 22-29 BLOOD UREA NITROGEN (BEAKER) (test ixcu=980) 18 mg/dL 7-21 CREATININE (BEAKER) (test wjoj=173) 0.57 mg/dL 0.57-1.25 GLUCOSE RANDOM (BEAKER) (test dxxo=938) 87 mg/dL 70-105 CALCIUM (BEAKER) (test hfhr=836) 10.5 mg/dL 8.4-10.2 EGFR (BEAKER) (test xwvr=5504) 109 mL/min/1.73 sq m ESTIMATED GFR IS NOT ACCURATE CREATININE CLEARANCE IN PREDICTING GLOMERULAR FILTRATION RATE. ESTIMATED GFR IS NOT APPLICABLE FOR DIALYSIS PATIENTS. [id number] 05:40:00* Test Item Value Reference Range Comments PROTIME (BEAKER) (test cgof=491) 15.6 seconds 11.7-14.7 INR (BEAKER) (test wpkr=178) 1.2 <=5.9 PARTIAL THROMBOPLASTIN TIME (BEAKER) (test jbak=176) 52.2 seconds 22.5-36.0 RECOMMENDED COUMADIN/WARFARIN INR THERAPY RANGESSTANDARD DOSE: 2.0 - 3.0 Inclu hola: PROPHYLAXIS for venous thrombosis, systemic embolization; TREATMENT for rodrigo ous thrombosis and/or pulmonary embolus.HIGH RISK: Target INR is 2.5-3.5 for pat ients with mechanical heart valves.POCT-GLUCOSE [id number] 22:59:00* Test Item Value Reference Range Comments POC-GLUCOSE METER (BEAKER) (test gpmz=5512) 112 mg/dL 70-110 TESTED AT [address] [address] POCT-GLUCOSE [id number] 17:01:00* Test Item Value Reference Range Comments POC-GLUCOSE METER (BEAKER) (test bxbx=3965) 147 mg/dL 70-110 TESTED AT [address] [address] POCT-GLUCOSE [id number] 11:42:00* Test Item Value Reference Range Comments POC-GLUCOSE METER (BEAKER) (test wkhf=4845) 199 mg/dL 70-110 TESTED AT [address] [address] POCT-GLUCOSE [id number] 10:21:00* Test Item Value Reference Range Comments POC-GLUCOSE METER (BEAKER) (test haqn=4492) 169 mg/dL 70-110 TESTED AT [address] [address] POCT-GLUCOSE [id number] 06:09:00* Test Item Value Reference Range Comments POC-GLUCOSE METER (BEAKER) (test jjop=5275) 117 mg/dL 70-110 TESTED AT [facility] [address] [facility] [address] BASIC METABOLIC [id number] 05:40:00* Test Item Value Reference Range Comments SODIUM (BEAKER) (test pqgb=150) 140 meq/L 136-145 POTASSIUM (BEAKER) (test lprd=825) 4.0 meq/L 3.5-5.1 CHLORIDE (BEAKER) (test oerv=230) 101 meq/L 98-107 CO2 (BEAKER) (test myqx=421) 31 meq/L 22-29 BLOOD UREA NITROGEN (BEAKER) (test qwjt=705) 22 mg/dL 7-21 CREATININE (BEAKER) (test wlqe=545) 0.61 mg/dL 0.57-1.25 GLUCOSE RANDOM (BEAKER) (test mwve=143) 95 mg/dL 70-105 CALCIUM (BEAKER) (test upba=709) 11.1 mg/dL 8.4-10.2 EGFR (BEAKER) (test uraf=4984) 100 mL/min/1.73 sq m ESTIMATED GFR IS NOT ACCURATE CREATININE CLEARANCE IN PREDICTING GLOMERULAR FILTRATION RATE. ESTIMATED GFR IS NOT APPLICABLE FOR DIALYSIS PATIENTS. [id number] 05:34:00* Test Item Value Reference Range Comments PHOSPHORUS (BEAKER) (test slim=372) 3.4 mg/dL 2.3-4.7 [id number] 05:34:00* Test Item Value Reference Range Comments MAGNESIUM (BEAKER) (test acjk=180) 1.6 mg/dL 1.6-2.6 [id number] 05:31:00* Test Item Value Reference Range Comments PROTIME (BEAKER) (test zgxi=502) 15.4 seconds 11.7-14.7 INR (BEAKER) (test zvtn=389) 1.2 <=5.9 PARTIAL THROMBOPLASTIN TIME (BEAKER) (test mnwr=774) 46.5 seconds 22.5-36.0 RECOMMENDED COUMADIN/WARFARIN INR THERAPY RANGESSTANDARD DOSE: 2.0 - 3.0 Inclu hola: PROPHYLAXIS for venous thrombosis, systemic embolization; TREATMENT for rodrigo ous thrombosis and/or pulmonary embolus.HIGH RISK: Target INR is 2.5-3.5 for pat ients with mechanical heart valves.CBC W/PLT COUNT & AUTO [id number] 05:15:00* Test Item Value Reference Range Comments WHITE BLOOD CELL COUNT (BEAKER) (test kgey=119) 15.1 K/ L 3.5-10.5 RED BLOOD CELL COUNT (BEAKER) (test zxnv=324) 3.77 M/ L 3.93-5.22 HEMOGLOBIN (BEAKER) (test qqyy=689) 9.0 GM/DL 11.2-15.7 HEMATOCRIT (BEAKER) (test dsgk=276) 29.7 % 34.1-44.9 MEAN CORPUSCULAR VOLUME (BEAKER) (test ujgi=984) 78.8 fL 79.4-94.8 MEAN CORPUSCULAR HEMOGLOBIN (BEAKER) (test dmbq=271) 23.9 pg 25.6-32.2 MEAN CORPUSCULAR HEMOGLOBIN CONC (BEAKER) (test rklz=220) 30.3 GM/DL 32.2-35.5 RED CELL DISTRIBUTION WIDTH (BEAKER) (test hzuo=601) 17.6 % 11.7-14.4 PLATELET COUNT (BEAKER) (test npfm=315) 755 K/CU MM 150-450 MEAN PLATELET VOLUME (BEAKER) (test zgbl=565) 10.4 fL 9.4-12.3 NUCLEATED RED BLOOD CELLS (BEAKER) (test xiut=686) 0 /100 WBC 0-0 NEUTROPHILS RELATIVE PERCENT (BEAKER) (test prtu=975) 82 % LYMPHOCYTES RELATIVE PERCENT (BEAKER) (test kzei=048) 11 % MONOCYTES RELATIVE PERCENT (BEAKER) (test ixkl=829) 5 % EOSINOPHILS RELATIVE PERCENT (BEAKER) (test rdzv=786) 1 % BASOPHILS RELATIVE PERCENT (BEAKER) (test jths=680) 0 % NEUTROPHILS ABSOLUTE COUNT (BEAKER) (test xnrm=891) 12.44 K/ L 1.56-6.13 LYMPHOCYTES ABSOLUTE COUNT (BEAKER) (test jocx=381) 1.62 K/ L 1.18-3.74 MONOCYTES ABSOLUTE COUNT (BEAKER) (test qhav=761) 0.82 K/ L 0.24-0.36 EOSINOPHILS ABSOLUTE COUNT (BEAKER) (test jlxz=403) 0.10 K/ L 0.04-0.36 BASOPHILS ABSOLUTE COUNT (BEAKER) (test rtlx=534) 0.03 K/ L 0.01-0.08 IMMATURE GRANULOCYTES-RELATIVE PERCENT (BEAKER) (test folu=7640) 1 % 0-1 RAD, CHEST, 1 VIEW, NON [id number] 04:54:00Reason for exam:->evaluation of pulmonary edemaShould this be performed at the bedside?->YesFINAL REPORT EXAMINATION: AP PORTABLE CHEST RADIOGRAPH CLINICAL INDICATION: Pulmonary edema IMPRESSION: Compared with 09/04/2018. Cardiac enlargement, bilateral parenchymal lung opacities and superimposed pleural effusions are similar to previous. The constellation of findings is compatible with fluid overload-heart failure. The more confluent basilar lung opacities are favored to reflect passive atelectasis. An underlying pneumonia cannot be excluded. No evidence of a pneumothorax. In summary, CHF-fluid overload, similar to previous. Signed: [facility] Verified Date/Time: 09/05/2018 04:54:02 Reading Location: [address] Reading Room -GLUCOSE [id number] 00:45:00 * Test Item Value Reference Range Comments POC-GLUCOSE METER (BEAKER) (test iwnr=4748) 131 mg/dL 70-110 TESTED AT [place] [id number] POCT-GLUCOSE [id number] 00:19:00* Test Item Value Reference Range Comments POC-GLUCOSE METER (BEAKER) (test iakr=0708) 59 mg/dL 70-110 TESTED AT [address] [address] POCT-GLUCOSE [id number] 19:29:00* Test Item Value Reference Range Comments POC-GLUCOSE METER (BEAKER) (test jsxf=5207) 70 mg/dL 70-110 TESTED AT [address] [address] [address], [id number] 18:31:00PO and IV contrast pleaseFINAL REPORT ABDOMINAL AND PELVIS CT DATED 09/04/2018 COMPARISON: August 22, 2009 CLINICAL INFORMATION: Evaluate for fluid collections TECHNIQUE: Axial images of the abdomen and pelvis were obtained from diaphragm to the pubic symphysis with GI and intravenous contrast. This exam was performed according to our departmental dose-optimization program, which includes automated exposure control, adjustment of the mA and/or kV according to patient size and/or use of interactive reconstruction technique. COMMENT: There is small right pleural effusion and moderate left pleural effusion. Subsegmental atelectasis is seen in both lung bases and lingula. There is diffusely increased attenuation in the subcutaneous soft tissue of the abdomen and pelvis suggestive of anasarca. Liver and spleen are normal in size without focal abnormality. Gallbladder is contracted. A small hyperdense focus is seen in the gallbladder suggestive of a small gallstone. No biliary dilatation is noted. Pancreas and adrenals are unremarkable. Left kidney is atrophic. Right kidney is normal in size. There is mild to atelectasis or hydronephrosis in both kidneys. The small and large simi wel are unremarkable. No extraluminal GI contrast is noted. Diverticular disease is seen in the large bowel without diverticulitis. A loculated fluid collection is seen in the right lower quadrant abdomen measuring approximately 3.7 x 5.4 c m. A percutaneous drainage catheter is present. A peripheral enhancing large mas s is seen in the lower abdomen and pelvis measuring at least to 8.9 x 11 x 7.3 c m. IMPRESSION: IMPRESSION:1. Bilateral pleural effusion with bibasilar and shira gular subsegmental atelectasis.2. Anasarca.3. Loculated air-fluid collection in the right lower quadrant abdomen with a percutaneous drainage catheter.4. Large peripherally enhancing mass in the lower abdomen and pelvis. 5. Atrophic left ki dney and bilateral mild hydronephrosis versus pelviectasis. Signed: Yoselyn Mckenna MDReport Verified Date/Time: 09/04/2018 18:31:57 Reading Location: [facility] B1 C013Y CT Body Reading Room Electronically signed by: YOSELYN MCKENNA M.D. on 09/04 06:31 PM POCT-GLUCOSE [id number] 16:43:00* Test Item Value Reference Range Comments POC-GLUCOSE METER (BEAKER) (test pown=8650) 114 mg/dL 70-110 TESTED AT [address] [address] POCT-GLUCOSE [id number] 12:07:00* Test Item Value Reference Range Comments POC-GLUCOSE METER (BEAKER) (test oygc=8407) 227 mg/dL 70-110 TESTED AT [facility] [address] [facility] [address] RAD, CHEST, 1 VIEW, NON [id number] 07:49:00Reason for exam:->evaluation of pulmonary edemaShould this be performed at the bedside?->YesFINAL REPORT TECHNIQUE: Frontal view of the chest. INDICATION: 58-year-old woman with pulmonary edema. COMPARISON: Chest radiograph 09/03/2018. FINDINGS: LINES/TUBES: Unchanged. LUNGS: Persistent central pulmonary venous congestion. PLEURA: Unchanged small bilateral pleural effusions, left greater than right. No pneumothorax. HEART AND MEDIASTINUM: The cardiomediastinal silhouette is unchanged. SOFT TISSUES AND BONES: Unremarkable. IMPRESSION:No significant change since 09/03/2018. Signed: Rupesh Whiteepyesenia Verified Date/Time: 09/04/2018 07:49:38 Reading Location: [facility] Radiology Reading Room - GLUCOSE [id number] 06:22:00* Test Item Value Reference Range Comments POC-GLUCOSE METER (BEAKER) (test hetz=0847) 157 mg/dL 70-110 TESTED AT [facility] [address] [facility] [address] [id number] 05:41:00* Test Item Value Reference Range Comments PHOSPHORUS (BEAKER) (test snom=824) 3.0 mg/dL 2.3-4.7 [id number] 05:41:00* Test Item Value Reference Range Comments MAGNESIUM (BEAKER) (test dikr=971) 1.6 mg/dL 1.6-2.6 BASIC METABOLIC [id number] 05:41:00* Test Item Value Reference Range Comments SODIUM (BEAKER) (test koen=731) 142 meq/L 136-145 POTASSIUM (BEAKER) (test lbjd=964) 3.9 meq/L 3.5-5.1 CHLORIDE (BEAKER) (test wpip=625) 103 meq/L 98-107 CO2 (BEAKER) (test vzfz=604) 31 meq/L 22-29 BLOOD UREA NITROGEN (BEAKER) (test ksho=543) 25 mg/dL 7-21 CREATININE (BEAKER) (test zphu=460) 0.57 mg/dL 0.57-1.25 GLUCOSE RANDOM (BEAKER) (test urjy=810) 134 mg/dL 70-105 CALCIUM (BEAKER) (test xlky=702) 10.7 mg/dL 8.4-10.2 EGFR (BEAKER) (test ifni=7345) 109 mL/min/1.73 sq m ESTIMATED GFR IS NOT ACCURATE CREATININE CLEARANCE IN PREDICTING GLOMERULAR FILTRATION RATE. ESTIMATED GFR IS NOT APPLICABLE FOR DIALYSIS PATIENTS. CBC W/PLT COUNT & AUTO [id number] 05:34:00* Test Item Value Reference Range Comments WHITE BLOOD CELL COUNT (BEAKER) (test sgjj=171) 16.0 K/ L 3.5-10.5 RED BLOOD CELL COUNT (BEAKER) (test bdgz=757) 3.54 M/ L 3.93-5.22 HEMOGLOBIN (BEAKER) (test hrnh=301) 8.3 GM/DL 11.2-15.7 HEMATOCRIT (BEAKER) (test gcgz=802) 28.1 % 34.1-44.9 MEAN CORPUSCULAR VOLUME (BEAKER) (test xcpx=737) 79.4 fL 79.4-94.8 MEAN CORPUSCULAR HEMOGLOBIN (BEAKER) (test albl=954) 23.4 pg 25.6-32.2 MEAN CORPUSCULAR HEMOGLOBIN CONC (BEAKER) (test dlzh=950) 29.5 GM/DL 32.2-35.5 RED CELL DISTRIBUTION WIDTH (BEAKER) (test cnet=171) 17.2 % 11.7-14.4 PLATELET COUNT (BEAKER) (test qizc=548) 700 K/CU MM 150-450 MEAN PLATELET VOLUME (BEAKER) (test camz=992) 10.6 fL 9.4-12.3 NUCLEATED RED BLOOD CELLS (BEAKER) (test ygmu=383) 0 /100 WBC 0-0 NEUTROPHILS RELATIVE PERCENT (BEAKER) (test fhdd=968) 84 % LYMPHOCYTES RELATIVE PERCENT (BEAKER) (test khrd=076) 9 % MONOCYTES RELATIVE PERCENT (BEAKER) (test gltw=888) 6 % EOSINOPHILS RELATIVE PERCENT (BEAKER) (test vyzg=695) 0 % BASOPHILS RELATIVE PERCENT (BEAKER) (test gcxg=075) 0 % NEUTROPHILS ABSOLUTE COUNT (BEAKER) (test hmxa=211) 13.38 K/ L 1.56-6.13 LYMPHOCYTES ABSOLUTE COUNT (BEAKER) (test uxrj=720) 1.48 K/ L 1.18-3.74 MONOCYTES ABSOLUTE COUNT (BEAKER) (test yfva=582) 0.97 K/ L 0.24-0.36 EOSINOPHILS ABSOLUTE COUNT (BEAKER) (test neni=737) 0.04 K/ L 0.04-0.36 BASOPHILS ABSOLUTE COUNT (BEAKER) (test ryjt=482) 0.04 K/ L 0.01-0.08 IMMATURE GRANULOCYTES-RELATIVE PERCENT (BEAKER) (test ptum=4221) 1 % 0-1 [id number] 05:34:00* Test Item Value Reference Range Comments PROTIME (BEAKER) (test jevo=717) 15.6 seconds 11.7-14.7 INR (BEAKER) (test bfwc=279) 1.2 <=5.9 PARTIAL THROMBOPLASTIN TIME (BEAKER) (test afls=344) 48.3 seconds 22.5-36.0 RECOMMENDED COUMADIN/WARFARIN INR THERAPY RANGESSTANDARD DOSE: 2.0 - 3.0 Inclu hola: PROPHYLAXIS for venous thrombosis, systemic embolization; TREATMENT for rodrigo ous thrombosis and/or pulmonary embolus.HIGH RISK: Target INR is 2.5-3.5 for pat ients with mechanical heart valves.POCT-GLUCOSE [id number] 01:09:00* Test Item Value Reference Range Comments POC-GLUCOSE METER (BEAKER) (test xrtw=9171) 148 mg/dL 70-110 TESTED AT [address] [address] POCT-GLUCOSE [id number] 18:32:00* Test Item Value Reference Range Comments POC-GLUCOSE METER (BEAKER) (test bdyv=6015) 166 mg/dL 70-110 TESTED AT [address] [address] POCT-GLUCOSE [id number] 12:41:00* Test Item Value Reference Range Comments POC-GLUCOSE METER (BEAKER) (test efhb=7732) 167 mg/dL 70-110 TESTED AT [address] [place] [address] RAD, CHEST, 1 VIEW, NON [id number] 10:22:00Reason for exam:->evaluation of pulmonary edemaShould this be performed at the bedside?->YesFINAL REPORT Comparison: 09/02/2018 TECHNIQUE: Single view of the chest FINDINGS: There is diffuse vascular congestion. Small left pleural effusion with adjacent airspace disease noted. No gross new lung parenchymal changes. Nasogastric tube projects below the diaphragm. Signed: Dallas Ball MDReport Verified Date/Time: 09/03/2018 10:22:35 Reading Location: [address] Reading Room Electronically signed by: DALLAS BALL M.D. on 2018 10:22 AM [id number] 06:23:00* Test Item Value Reference Range Comments PHOSPHORUS (BEAKER) (test mcff=975) 3.1 mg/dL 2.3-4.7 [id number] 06:23:00* Test Item Value Reference Range Comments MAGNESIUM (BEAKER) (test bqon=275) 1.5 mg/dL 1.6-2.6 BASIC METABOLIC [id number] 06:23:00* Test Item Value Reference Range Comments SODIUM (BEAKER) (test xutt=383) 142 meq/L 136-145 POTASSIUM (BEAKER) (test uhzj=449) 3.7 meq/L 3.5-5.1 CHLORIDE (BEAKER) (test uqrw=620) 101 meq/L 98-107 CO2 (BEAKER) (test xbam=318) 35 meq/L 22-29 BLOOD UREA NITROGEN (BEAKER) (test xcqb=216) 24 mg/dL 7-21 CREATININE (BEAKER) (test tqeq=096) 0.55 mg/dL 0.57-1.25 GLUCOSE RANDOM (BEAKER) (test rxmk=733) 120 mg/dL 70-105 CALCIUM (BEAKER) (test ugkq=736) 10.8 mg/dL 8.4-10.2 EGFR (BEAKER) (test otha=7276) 113 mL/min/1.73 sq m ESTIMATED GFR IS NOT ACCURATE CREATININE CLEARANCE IN PREDICTING GLOMERULAR FILTRATION RATE. ESTIMATED GFR IS NOT APPLICABLE FOR DIALYSIS PATIENTS. CBC W/PLT COUNT & AUTO [id number] 06:21:00* Test Item Value Reference Range Comments WHITE BLOOD CELL COUNT (BEAKER) (test pmrx=577) 16.8 K/ L 3.5-10.5 RED BLOOD CELL COUNT (BEAKER) (test lirz=531) 3.77 M/ L 3.93-5.22 HEMOGLOBIN (BEAKER) (test hcko=704) 9.1 GM/DL 11.2-15.7 HEMATOCRIT (BEAKER) (test dacm=084) 29.6 % 34.1-44.9 MEAN CORPUSCULAR VOLUME (BEAKER) (test vtvy=712) 78.5 fL 79.4-94.8 MEAN CORPUSCULAR HEMOGLOBIN (BEAKER) (test wbis=276) 24.1 pg 25.6-32.2 MEAN CORPUSCULAR HEMOGLOBIN CONC (BEAKER) (test frfu=109) 30.7 GM/DL 32.2-35.5 RED CELL DISTRIBUTION WIDTH (BEAKER) (test oegr=250) 16.8 % 11.7-14.4 PLATELET COUNT (BEAKER) (test jdkh=680) 768 K/CU MM 150-450 MEAN PLATELET VOLUME (BEAKER) (test lsag=480) 10.4 fL 9.4-12.3 NUCLEATED RED BLOOD CELLS (BEAKER) (test gxij=545) 0 /100 WBC 0-0 NEUTROPHILS RELATIVE PERCENT (BEAKER) (test xtmh=541) 84 % LYMPHOCYTES RELATIVE PERCENT (BEAKER) (test uwpo=315) 9 % MONOCYTES RELATIVE PERCENT (BEAKER) (test nfpg=255) 7 % EOSINOPHILS RELATIVE PERCENT (BEAKER) (test zzuq=441) 0 % BASOPHILS RELATIVE PERCENT (BEAKER) (test wjvp=101) 0 % NEUTROPHILS ABSOLUTE COUNT (BEAKER) (test swjm=641) 14.02 K/ L 1.56-6.13 LYMPHOCYTES ABSOLUTE COUNT (BEAKER) (test xmap=930) 1.43 K/ L 1.18-3.74 MONOCYTES ABSOLUTE COUNT (BEAKER) (test wcag=274) 1.13 K/ L 0.24-0.36 EOSINOPHILS ABSOLUTE COUNT (BEAKER) (test fzwi=337) 0.05 K/ L 0.04-0.36 BASOPHILS ABSOLUTE COUNT (BEAKER) (test bbhi=230) 0.02 K/ L 0.01-0.08 IMMATURE GRANULOCYTES-RELATIVE PERCENT (BEAKER) (test ssoj=7763) 1 % 0-1 POCT-GLUCOSE [id number] 06:01:00* Test Item Value Reference Range Comments POC-GLUCOSE METER (BEAKER) (test sbru=2885) 155 mg/dL 70-110 TESTED AT [facility] [address] [facility] [address] BLOOD GAS, [id number] 05:49:00* Test Item Value Reference Range Comments PH ARTERIAL (BEAKER) (test akjk=663) 7.52 7.35-7.45 PCO2 ARTERIAL (BEAKER) (test rfdg=594) 43 mmHg 35-45 PO2 ARTERIAL (BEAKER) (test xqrv=816) 93 mmHg 80-90 O2 SATURATION ARTERIAL (BEAKER) (test fxtm=035) 97.6 % 96.0-97.0 HCO3 ARTERIAL (BEAKER) (test fddm=953) 34 mmol/L 21-29 BASE EXCESS ARTERIAL (BEAKER) (test lyho=204) 10.5 mmol/L -2.0-3.0 PATIENT TEMPERATURE (BEAKER) (test oofw=0976) 37.5 C FIO2 (BEAKER) (test ctyx=1866) 55.0 % [id number] 05:43:00* Test Item Value Reference Range Comments PROTIME (BEAKER) (test vpug=015) 15.8 seconds 11.7-14.7 INR (BEAKER) (test iarv=573) 1.3 <=5.9 PARTIAL THROMBOPLASTIN TIME (BEAKER) (test bljk=967) 43.1 seconds 22.5-36.0 RECOMMENDED COUMADIN/WARFARIN INR THERAPY RANGESSTANDARD DOSE: 2.0 - 3.0 Inclu hola: PROPHYLAXIS for venous thrombosis, systemic embolization; TREATMENT for rodrigo ous thrombosis and/or pulmonary embolus.HIGH RISK: Target INR is 2.5-3.5 for pat ients with mechanical heart valves.POCT-GLUCOSE [id number] 23:55:00* Test Item Value Reference Range Comments POC-GLUCOSE METER (BEAKER) (test cayg=9054) 93 mg/dL 70-110 TESTED AT [facility] [address] [facility] [address] POCT-GLUCOSE [id number] 18:07:00* Test Item Value Reference Range Comments POC-GLUCOSE METER (BEAKER) (test gnck=1066) 126 mg/dL 70-110 TESTED AT [facility] [address] [facility] [address] CBC W/PLT COUNT & AUTO [id number] 12:30:00* Test Item Value Reference Range Comments WHITE BLOOD CELL COUNT (BEAKER) (test tich=365) 17.2 K/ L 3.5-10.5 RED BLOOD CELL COUNT (BEAKER) (test zvcg=225) 3.72 M/ L 3.93-5.22 HEMOGLOBIN (BEAKER) (test vljc=414) 8.9 GM/DL 11.2-15.7 HEMATOCRIT (BEAKER) (test lzyx=818) 29.4 % 34.1-44.9 MEAN CORPUSCULAR VOLUME (BEAKER) (test fvpp=279) 79.0 fL 79.4-94.8 MEAN CORPUSCULAR HEMOGLOBIN (BEAKER) (test dyxn=019) 23.9 pg 25.6-32.2 MEAN CORPUSCULAR HEMOGLOBIN CONC (BEAKER) (test wytc=940) 30.3 GM/DL 32.2-35.5 RED CELL DISTRIBUTION WIDTH (BEAKER) (test ysxo=626) 16.5 % 11.7-14.4 PLATELET COUNT (BEAKER) (test qirp=031) 747 K/CU MM 150-450 MEAN PLATELET VOLUME (BEAKER) (test uuft=214) 10.3 fL 9.4-12.3 NUCLEATED RED BLOOD CELLS (BEAKER) (test ipse=749) 0 /100 WBC 0-0 NEUTROPHILS RELATIVE PERCENT (BEAKER) (test pwpv=910) 85 % LYMPHOCYTES RELATIVE PERCENT (BEAKER) (test ckix=815) 7 % MONOCYTES RELATIVE PERCENT (BEAKER) (test pigc=815) 7 % EOSINOPHILS RELATIVE PERCENT (BEAKER) (test lduz=208) 0 % BASOPHILS RELATIVE PERCENT (BEAKER) (test yoql=658) 0 % NEUTROPHILS ABSOLUTE COUNT (BEAKER) (test quas=285) 14.63 K/ L 1.56-6.13 LYMPHOCYTES ABSOLUTE COUNT (BEAKER) (test xdgc=696) 1.21 K/ L 1.18-3.74 MONOCYTES ABSOLUTE COUNT (BEAKER) (test tysl=700) 1.18 K/ L 0.24-0.36 EOSINOPHILS ABSOLUTE COUNT (BEAKER) (test jvjb=003) 0.04 K/ L 0.04-0.36 BASOPHILS ABSOLUTE COUNT (BEAKER) (test kzwg=273) 0.03 K/ L 0.01-0.08 IMMATURE GRANULOCYTES-RELATIVE PERCENT (BEAKER) (test jxgq=8409) 1 % 0-1 POCT-GLUCOSE [id number] 11:47:00* Test Item Value Reference Range Comments POC-GLUCOSE METER (BEAKER) (test nwio=4602) 140 mg/dL 70-110 TESTED AT [facility] [address] [facility] [address] POCT-GLUCOSE [id number] 06:30:00* Test Item Value Reference Range Comments POC-GLUCOSE METER (BEAKER) (test rtyf=0256) 160 mg/dL 70-110 TESTED AT [facility] [address] [facility] [address] RAD, CHEST, 1 VIEW, NON [id number] 05:41:00Reason for exam:->evaluation of pulmonary edemaShould this be performed at the bedside?->YesFINAL REPORT RAD, CHEST, 1 VIEW, NON DEPT INDICATION: evaluation of pulmonary edema COMPARISON: Prior day's exam FINDINGS: Portable frontal view of the chest. IMPRESSION: Support Lines: Interval removal of previously seen left upper extremity PICC. Otherwise unchanged support apparatus. Lungs and pleura: Unchanged airspace and pleural opacities. No pneumothorax.Heart and mediastinum: Stable contours. Additional findings: None. Signed: Keiko Godoy [facility] Verified Date/Time: 09/02/2018 05:41:02 Reading Location: [address] Transitional Reading Room [id number] 03:40:00* Test Item Value Reference Range Comments PHOSPHORUS (BEAKER) (test gddn=915) 3.2 mg/dL 2.3-4.7 [id number] 03:40:00* Test Item Value Reference Range Comments MAGNESIUM (BEAKER) (test yzow=984) 1.6 mg/dL 1.6-2.6 BASIC METABOLIC [id number] 03:40:00* Test Item Value Reference Range Comments SODIUM (BEAKER) (test rteb=683) 141 meq/L 136-145 POTASSIUM (BEAKER) (test jjbl=854) 3.7 meq/L 3.5-5.1 CHLORIDE (BEAKER) (test iepz=188) 100 meq/L 98-107 CO2 (BEAKER) (test ewno=636) 34 meq/L 22-29 BLOOD UREA NITROGEN (BEAKER) (test ofhi=840) 24 mg/dL 7-21 CREATININE (BEAKER) (test lgkk=710) 0.51 mg/dL 0.57-1.25 GLUCOSE RANDOM (BEAKER) (test dkfh=285) 106 mg/dL 70-105 CALCIUM (BEAKER) (test zwhb=618) 10.4 mg/dL 8.4-10.2 EGFR (BEAKER) (test fgku=6456) 123 mL/min/1.73 sq m ESTIMATED GFR IS NOT ACCURATE CREATININE CLEARANCE IN PREDICTING GLOMERULAR FILTRATION RATE. ESTIMATED GFR IS NOT APPLICABLE FOR DIALYSIS PATIENTS. [id number] 02:58:00* Test Item Value Reference Range Comments PROTIME (BEAKER) (test hngq=376) 16.3 seconds 11.7-14.7 INR (BEAKER) (test zmzr=703) 1.3 <=5.9 PARTIAL THROMBOPLASTIN TIME (BEAKER) (test qaoe=317) 48.7 seconds 22.5-36.0 RECOMMENDED COUMADIN/WARFARIN INR THERAPY RANGESSTANDARD DOSE: 2.0 - 3.0 Inclu hola: PROPHYLAXIS for venous thrombosis, systemic embolization; TREATMENT for rodrigo ous thrombosis and/or pulmonary embolus.HIGH RISK: Target INR is 2.5-3.5 for pat ients with mechanical heart valves.CBC W/PLT COUNT & AUTO [id number] 02:41:00* Test Item Value Reference Range Comments WHITE BLOOD CELL COUNT (BEAKER) (test flbf=658) 18.4 K/ L 3.5-10.5 RED BLOOD CELL COUNT (BEAKER) (test jeed=501) 3.05 M/ L 3.93-5.22 HEMOGLOBIN (BEAKER) (test yvai=570) 7.1 GM/DL 11.2-15.7 HEMATOCRIT (BEAKER) (test jvbf=176) 23.8 % 34.1-44.9 MEAN CORPUSCULAR VOLUME (BEAKER) (test wzvu=490) 78.0 fL 79.4-94.8 MEAN CORPUSCULAR HEMOGLOBIN (BEAKER) (test pixl=056) 23.3 pg 25.6-32.2 MEAN CORPUSCULAR HEMOGLOBIN CONC (BEAKER) (test ingi=805) 29.8 GM/DL 32.2-35.5 RED CELL DISTRIBUTION WIDTH (BEAKER) (test zmdt=401) 16.8 % 11.7-14.4 PLATELET COUNT (BEAKER) (test neac=616) 776 K/CU MM 150-450 MEAN PLATELET VOLUME (BEAKER) (test rccb=283) 10.5 fL 9.4-12.3 NUCLEATED RED BLOOD CELLS (BEAKER) (test dcfo=226) 0 /100 WBC 0-0 NEUTROPHILS RELATIVE PERCENT (BEAKER) (test xtxa=074) 86 % LYMPHOCYTES RELATIVE PERCENT (BEAKER) (test sdci=801) 7 % MONOCYTES RELATIVE PERCENT (BEAKER) (test rkcf=997) 6 % EOSINOPHILS RELATIVE PERCENT (BEAKER) (test airl=954) 0 % BASOPHILS RELATIVE PERCENT (BEAKER) (test oiaw=293) 0 % NEUTROPHILS ABSOLUTE COUNT (BEAKER) (test dque=921) 15.83 K/ L 1.56-6.13 LYMPHOCYTES ABSOLUTE COUNT (BEAKER) (test izuo=915) 1.27 K/ L 1.18-3.74 MONOCYTES ABSOLUTE COUNT (BEAKER) (test hicj=259) 1.14 K/ L 0.24-0.36 EOSINOPHILS ABSOLUTE COUNT (BEAKER) (test bvta=025) 0.03 K/ L 0.04-0.36 BASOPHILS ABSOLUTE COUNT (BEAKER) (test skok=527) 0.05 K/ L 0.01-0.08 IMMATURE GRANULOCYTES-RELATIVE PERCENT (BEAKER) (test uwej=3287) 1 % 0-1 POCT-GLUCOSE [id number] 01:27:00* Test Item Value Reference Range Comments POC-GLUCOSE METER (BEAKER) (test qhoq=0387) 136 mg/dL 70-110 TESTED AT [facility] [address] [facility] [address] RAD, ABDOMEN/KUB, 1 VIEW [id number] 20:11:00Reason for exam:->NGT PositionShould this be performed at the bedside?->YesFINAL REPORT TECHNIQUE: Single View of the Abdomen. [...] clinical setting. Small right pleural effusion. Signed: Javier Carrion Verified Date/Time: 09/01/2018 20:11:49 Reading Location: [address] Consult Reading Room -GLUCOSE [id number] 18:19:00* Test Item Value Reference Range Comments POC-GLUCOSE METER (BEAKER) (test qgkm=1560) 107 mg/dL 70-110 TESTED AT [address] [address] POCT-GLUCOSE [id number] 12:00:00* Test Item Value Reference Range Comments POC-GLUCOSE METER (BEAKER) (test aeil=3521) 174 mg/dL 70-110 TESTED AT [place] [id number] [facility] [address] POCT-GLUCOSE [id number] 06:30:00* Test Item Value Reference Range Comments POC-GLUCOSE METER (BEAKER) (test teui=7203) 184 mg/dL 70-110 TESTED AT [address] [address] RAD, CHEST, 1 VIEW, NON [id number] 04:37:00Reason for exam:->evaluation of pulmonary edemaShould this be performed at the bedside?->YesFINAL REPORT RAD, CHEST, 1 VIEW, NON DEPT INDICATION: evaluation of pulmonary edema COMPARISON: Prior day's exam FINDINGS: Portable frontal view of the chest. IMPRESSION: Support Lines: Stable. Lungs and pleura: Unchanged airspace and pleural opacities. No pneumothorax.Heart and mediastinum: Stable contours. Additional findings: None. Signed: Keiko Godoy Verified Date/Time: 09/01/2018 04:37:17 Reading Location: [facility] C013T Transitional Reading Room Electronically signed by: KEIKO GODOY MD on 08/12 04:37 AM [id number] 04:35:00* Test Item Value Reference Range Comments PROTIME (BEAKER) (test xdiw=357) 16.1 seconds 11.7-14.7 INR (BEAKER) (test zqwu=710) 1.3 <=5.9 PARTIAL THROMBOPLASTIN TIME (BEAKER) (test fayh=507) 47.0 seconds 22.5-36.0 RECOMMENDED COUMADIN/WARFARIN INR THERAPY RANGESSTANDARD DOSE: 2.0 - 3.0 Inclu hola: PROPHYLAXIS for venous thrombosis, systemic embolization; TREATMENT for rodrigo ous thrombosis and/or pulmonary embolus.HIGH RISK: Target INR is 2.5-3.5 for pat ients with mechanical heart valves.BASIC METABOLIC [id number] 04:31:00* Test Item Value Reference Range Comments SODIUM (BEAKER) (test qooo=859) 143 meq/L 136-145 POTASSIUM (BEAKER) (test rwwv=911) 3.6 meq/L 3.5-5.1 CHLORIDE (BEAKER) (test ylfu=724) 101 meq/L 98-107 CO2 (BEAKER) (test mokw=578) 34 meq/L 22-29 BLOOD UREA NITROGEN (BEAKER) (test xrjj=857) 26 mg/dL 7-21 CREATININE (BEAKER) (test qlao=644) 0.50 mg/dL 0.57-1.25 GLUCOSE RANDOM (BEAKER) (test sbzj=170) 125 mg/dL 70-105 CALCIUM (BEAKER) (test crwq=937) 10.5 mg/dL 8.4-10.2 EGFR (BEAKER) (test wqqv=8567) 126 mL/min/1.73 sq m ESTIMATED GFR IS NOT ACCURATE CREATININE CLEARANCE IN PREDICTING GLOMERULAR FILTRATION RATE. ESTIMATED GFR IS NOT APPLICABLE FOR DIALYSIS PATIENTS. [id number] 04:30:00* Test Item Value Reference Range Comments PHOSPHORUS (BEAKER) (test gbiu=501) 2.8 mg/dL 2.3-4.7 [id number] 04:30:00* Test Item Value Reference Range Comments MAGNESIUM (BEAKER) (test xnzw=440) 1.8 mg/dL 1.6-2.6 CBC W/PLT COUNT & AUTO [id number] 04:29:00* Test Item Value Reference Range Comments WHITE BLOOD CELL COUNT (BEAKER) (test txtr=117) 19.3 K/ L 3.5-10.5 RED BLOOD CELL COUNT (BEAKER) (test nvfu=920) 3.44 M/ L 3.93-5.22 HEMOGLOBIN (BEAKER) (test jaxc=570) 8.0 GM/DL 11.2-15.7 HEMATOCRIT (BEAKER) (test cnig=706) 26.7 % 34.1-44.9 MEAN CORPUSCULAR VOLUME (BEAKER) (test rttr=121) 77.6 fL 79.4-94.8 MEAN CORPUSCULAR HEMOGLOBIN (BEAKER) (test wwhn=953) 23.3 pg 25.6-32.2 MEAN CORPUSCULAR HEMOGLOBIN CONC (BEAKER) (test ewop=612) 30.0 GM/DL 32.2-35.5 RED CELL DISTRIBUTION WIDTH (BEAKER) (test pgjr=258) 16.8 % 11.7-14.4 PLATELET COUNT (BEAKER) (test wtcg=857) 858 K/CU MM 150-450 MEAN PLATELET VOLUME (BEAKER) (test wecq=272) 10.4 fL 9.4-12.3 NUCLEATED RED BLOOD CELLS (BEAKER) (test cwjx=073) 0 /100 WBC 0-0 NEUTROPHILS RELATIVE PERCENT (BEAKER) (test mhns=278) 86 % LYMPHOCYTES RELATIVE PERCENT (BEAKER) (test xawb=188) 7 % MONOCYTES RELATIVE PERCENT (BEAKER) (test lajo=160) 6 % EOSINOPHILS RELATIVE PERCENT (BEAKER) (test jqcd=475) 0 % BASOPHILS RELATIVE PERCENT (BEAKER) (test zpvi=192) 0 % NEUTROPHILS ABSOLUTE COUNT (BEAKER) (test lvdx=912) 16.55 K/ L 1.56-6.13 LYMPHOCYTES ABSOLUTE COUNT (BEAKER) (test uuyl=282) 1.32 K/ L 1.18-3.74 MONOCYTES ABSOLUTE COUNT (BEAKER) (test kuqo=537) 1.20 K/ L 0.24-0.36 EOSINOPHILS ABSOLUTE COUNT (BEAKER) (test moom=278) 0.02 K/ L 0.04-0.36 BASOPHILS ABSOLUTE COUNT (BEAKER) (test rpbn=442) 0.03 K/ L 0.01-0.08 IMMATURE GRANULOCYTES-RELATIVE PERCENT (BEAKER) (test vrrz=9354) 1 % 0-1 POCT-GLUCOSE [id number] 00:40:00* Test Item Value Reference Range Comments POC-GLUCOSE METER (BEAKER) (test yucv=7321) 164 mg/dL 70-110 TESTED AT [facility] [address] [facility] [address] POCT-GLUCOSE [id number] 18:59:00* Test Item Value Reference Range Comments POC-GLUCOSE METER (BEAKER) (test krwc=2023) 116 mg/dL 70-110 TESTED AT [place] [address] [facility] [address] [id number] 13:49:00* Test Item Value Reference Range Comments PHOSPHORUS (BEAKER) (test vyoj=924) 4.7 mg/dL 2.3-4.7 [id number] 13:49:00* Test Item Value Reference Range Comments MAGNESIUM (BEAKER) (test vlko=289) 2.4 mg/dL 1.6-2.6 BASIC METABOLIC [id number] 13:49:00* Test Item Value Reference Range Comments SODIUM (BEAKER) (test bbrx=715) 139 meq/L 136-145 POTASSIUM (BEAKER) (test ozjj=627) 4.1 meq/L 3.5-5.1 CHLORIDE (BEAKER) (test fkzi=789) 97 meq/L 98-107 CO2 (BEAKER) (test eqjm=934) 33 meq/L 22-29 BLOOD UREA NITROGEN (BEAKER) (test oszl=026) 23 mg/dL 7-21 CREATININE (BEAKER) (test djbe=333) 0.58 mg/dL 0.57-1.25 GLUCOSE RANDOM (BEAKER) (test ftyc=731) 325 mg/dL 70-105 CALCIUM (BEAKER) (test vnwj=392) 9.1 mg/dL 8.4-10.2 EGFR (BEAKER) (test dakh=2142) 106 mL/min/1.73 sq m ESTIMATED GFR IS NOT ACCURATE CREATININE CLEARANCE IN PREDICTING GLOMERULAR FILTRATION RATE. ESTIMATED GFR IS NOT APPLICABLE FOR DIALYSIS PATIENTS. POCT-GLUCOSE [id number] 12:52:00* Test Item Value Reference Range Comments POC-GLUCOSE METER (BEAKER) (test scdn=8074) 195 mg/dL 70-110 TESTED AT [facility] [address] [facility] [address] POCT-GLUCOSE [id number] 08:49:00* Test Item Value Reference Range Comments POC-GLUCOSE METER (BEAKER) (test fede=3711) 211 mg/dL 70-110 TESTED AT [place] [address] [facility] [address] RAD, CHEST, 1 VIEW, NON [id number] 07:33:00Reason for exam:->evaluation of pulmonary edemaShould this be performed at the bedside?->YesFINAL REPORT Chest one view. Clinical history: evaluation of pulmonary edema Comparison: 08/30/2018 Discussion: A frontal chest is provided. Cardiomediastinal contours are unchanged. Lines and tubes are in stable position. There is interstitial edema and mild vascular congestion. Small bilateral pleural effusions, left greater than right. No pneumothorax. Signed: Josefa Dickey Verified Date/Time: 08/31/2018 07:33:52 Reading Location: [facility] Radiology Reading Room Electronically signed by: JOSEFA DICKEY M.D. on 0 08/31/2018 07:33 AM POCT-GLUCOSE [id number] 06:21:00* Test Item Value Reference Range Comments POC-GLUCOSE METER (BEAKER) (test kykn=8025) 206 mg/dL 70-110 TESTED AT [facility] [address] [facility] [address] BLOOD GAS, [id number] 04:50:00* Test Item Value Reference Range Comments PH VENOUS (BEAKER) (test lphy=299) 7.49 7.32-7.42 PCO2 VENOUS (BEAKER) (test xliu=066) 53 mmHg 41-51 PO2 VENOUS (BEAKER) (test jqsm=901) 39 mmHg 25-40 O2 SATURATION VENOUS (BEAKER) (test kuml=936) 77.9 % 40.0-70.0 HCO3 VENOUS (BEAKER) (test qvqk=465) 39 mmol/L 21-29 BASE EXCESS VENOUS (BEAKER) (test ilil=787) 13.9 mmol/L -2.0-3.0 PATIENT TEMPERATURE (BEAKER) (test tvhi=9500) 36.5 C FIO2 (BEAKER) (test akzj=4459) 100.0 % [id number] 04:30:00* Test Item Value Reference Range Comments PHOSPHORUS (BEAKER) (test fgky=647) 2.4 mg/dL 2.3-4.7 [id number] 04:30:00* Test Item Value Reference Range Comments MAGNESIUM (BEAKER) (test zvce=347) 1.7 mg/dL 1.6-2.6 BASIC METABOLIC [id number] 04:30:00* Test Item Value Reference Range Comments SODIUM (BEAKER) (test awrk=348) 141 meq/L 136-145 POTASSIUM (BEAKER) (test oplb=837) 3.2 meq/L 3.5-5.1 CHLORIDE (BEAKER) (test jfbs=059) 98 meq/L 98-107 CO2 (BEAKER) (test dbfz=939) 35 meq/L 22-29 BLOOD UREA NITROGEN (BEAKER) (test tshp=716) 23 mg/dL 7-21 CREATININE (BEAKER) (test seex=568) 0.47 mg/dL 0.57-1.25 GLUCOSE RANDOM (BEAKER) (test ojzd=826) 153 mg/dL 70-105 CALCIUM (BEAKER) (test uqxt=720) 9.5 mg/dL 8.4-10.2 EGFR (BEAKER) (test idcj=9646) 136 mL/min/1.73 sq m ESTIMATED GFR IS NOT ACCURATE CREATININE CLEARANCE IN PREDICTING GLOMERULAR FILTRATION RATE. ESTIMATED GFR IS NOT APPLICABLE FOR DIALYSIS PATIENTS. PT/[id number] 04:20:00* Test Item Value Reference Range Comments PROTIME (BEAKER) (test tkww=246) 16.2 seconds 11.7-14.7 INR (BEAKER) (test wzfx=700) 1.3 <=5.9 PARTIAL THROMBOPLASTIN TIME (BEAKER) (test ulew=111) 47.6 seconds 22.5-36.0 RECOMMENDED COUMADIN/WARFARIN INR THERAPY RANGESSTANDARD DOSE: 2.0 - 3.0 Inclu hola: PROPHYLAXIS for venous thrombosis, systemic embolization; TREATMENT for rodrigo ous thrombosis and/or pulmonary embolus.HIGH RISK: Target INR is 2.5-3.5 for pat ients with mechanical heart valves.CBC W/PLT COUNT & AUTO [id number] 04:07:00* Test Item Value Reference Range Comments WHITE BLOOD CELL COUNT (BEAKER) (test ytmx=376) 18.8 K/ L 3.5-10.5 RED BLOOD CELL COUNT (BEAKER) (test vfca=861) 3.24 M/ L 3.93-5.22 HEMOGLOBIN (BEAKER) (test xebc=982) 7.6 GM/DL 11.2-15.7 HEMATOCRIT (BEAKER) (test zmwf=475) 25.5 % 34.1-44.9 MEAN CORPUSCULAR VOLUME (BEAKER) (test dhxd=492) 78.7 fL 79.4-94.8 MEAN CORPUSCULAR HEMOGLOBIN (BEAKER) (test jouk=627) 23.5 pg 25.6-32.2 MEAN CORPUSCULAR HEMOGLOBIN CONC (BEAKER) (test zrtl=385) 29.8 GM/DL 32.2-35.5 RED CELL DISTRIBUTION WIDTH (BEAKER) (test hwtm=867) 16.5 % 11.7-14.4 PLATELET COUNT (BEAKER) (test fezl=091) 755 K/CU MM 150-450 MEAN PLATELET VOLUME (BEAKER) (test djie=854) 10.6 fL 9.4-12.3 NUCLEATED RED BLOOD CELLS (BEAKER) (test rzip=130) 0 /100 WBC 0-0 NEUTROPHILS RELATIVE PERCENT (BEAKER) (test pqmt=496) 87 % LYMPHOCYTES RELATIVE PERCENT (BEAKER) (test hlqw=242) 6 % MONOCYTES RELATIVE PERCENT (BEAKER) (test ndku=385) 6 % EOSINOPHILS RELATIVE PERCENT (BEAKER) (test aniy=249) 0 % BASOPHILS RELATIVE PERCENT (BEAKER) (test kdmp=048) 0 % NEUTROPHILS ABSOLUTE COUNT (BEAKER) (test nkbm=019) 16.38 K/ L 1.56-6.13 LYMPHOCYTES ABSOLUTE COUNT (BEAKER) (test iskl=422) 1.09 K/ L 1.18-3.74 MONOCYTES ABSOLUTE COUNT (BEAKER) (test gegr=776) 1.13 K/ L 0.24-0.36 EOSINOPHILS ABSOLUTE COUNT (BEAKER) (test rxnc=930) 0.04 K/ L 0.04-0.36 BASOPHILS ABSOLUTE COUNT (BEAKER) (test rjrt=739) 0.02 K/ L 0.01-0.08 IMMATURE GRANULOCYTES-RELATIVE PERCENT (BEAKER) (test ryya=1856) 1 % 0-1 POCT-GLUCOSE [id number] 00:25:00* Test Item Value Reference Range Comments POC-GLUCOSE METER (BEAKER) (test uuko=3381) 210 mg/dL 70-110 TESTED AT [place] [address] BLOOD [id number] 19:01:00* Test Item Value Reference Range Comments CULTURE (BEAKER) (test mmyz=2064) No growth in 5 days POCT-GLUCOSE [id number] 17:53:00* Test Item Value Reference Range Comments POC-GLUCOSE METER (BEAKER) (test cxcl=4101) 175 mg/dL 70-110 TESTED AT [place] [address] BLOOD [id number] 13:47:00* Test Item Value Reference Range Comments CULTURE (BEAKER) (test akby=6356) No growth in 5 days POCT-GLUCOSE [id number] 11:36:00* Test Item Value Reference Range Comments POC-GLUCOSE METER (BEAKER) (test nfxr=7793) 226 mg/dL 70-110 TESTED AT [place] [address] (CELLAVISION MANUAL DIFF)2018-08-30 11:24:00* Test Item Value Reference Range Comments NEUTROPHILS - REL (CELLAVISION)(BEAKER) (test jbev=0965) 86 % LYMPHOCYTES - REL (CELLAVISION)(BEAKER) (test qbuy=1848) 4 % MONOCYTES - REL (CELLAVISION)(BEAKER) (test usst=2894) 5 % EOSINOPHILS - REL (CELLAVISION)(BEAKER) (test pxqr=3659) 3 % BANDS - REL (CELLAVISION)(BEAKER) (test sapk=7326) 2 % 0-10 NEUTROPHILS - ABS (CELLAVISION)(BEAKER) (test kjvi=2864) 20.47 K/ul 1.56-6.13 LYMPHOCYTES - ABS (CELLAVISION)(BEAKER) (test fmlf=9313) 0.95 K/ul 1.18-3.74 MONOCYTES - ABS (CELLAVISION)(BEAKER) (test hfeu=5403) 1.19 K/uL 0.24-0.36 EOSINOPHILS - ABS (CELLAVISION)(BEAKER) (test ydpp=1997) 0.71 K/uL 0.04-0.36 BANDS - ABS (CELLAVISION)(BEAKER) (test rakm=0382) 0.48 K/uL 0.00-0.80 TOTAL COUNTED (BEAKER) (test qego=6839) 100 MANUAL NRBC PER 100 CELLS (BEAKER) (test apik=6133) 1 /100 WBC 0-0 WBC MORPHOLOGY (BEAKER) (test imbt=820) Normal PLT MORPHOLOGY (BEAKER) (test ixuo=757) Normal HYPOCHROMIA (BEAKER) (test uyta=300) 1+ few ANISOCYTOSIS (BEAKER) (test gzob=310) 2+ moderate MICROCYTES (BEAKER) (test ffqj=825) 2+ moderate ARTIFACT (CELLAVISION)(BEAKER) (test phfa=7507) Present PLATELET CONCENTRATION (CELLAVISION)(BEAKER) (test wjsy=2253) Increased Received comment: User comments: Slide comments: CBC W/PLT COUNT & AUTO [id number] 11:23:00* Test Item Value Reference Range Comments WHITE BLOOD CELL COUNT (BEAKER) (test wxsp=877) 23.8 K/ L 3.5-10.5 RED BLOOD CELL COUNT (BEAKER) (test sfuh=709) 3.96 M/ L 3.93-5.22 HEMOGLOBIN (BEAKER) (test hmsw=058) 9.1 GM/DL 11.2-15.7 HEMATOCRIT (BEAKER) (test lgyj=670) 31.2 % 34.1-44.9 MEAN CORPUSCULAR VOLUME (BEAKER) (test kxkq=036) 78.8 fL 79.4-94.8 MEAN CORPUSCULAR HEMOGLOBIN (BEAKER) (test togm=478) 23.0 pg 25.6-32.2 MEAN CORPUSCULAR HEMOGLOBIN CONC (BEAKER) (test zmnd=268) 29.2 GM/DL 32.2-35.5 RED CELL DISTRIBUTION WIDTH (BEAKER) (test kvsf=146) 16.7 % 11.7-14.4 PLATELET COUNT (BEAKER) (test kjhc=757) 714 K/CU MM 150-450 MEAN PLATELET VOLUME (BEAKER) (test axfo=272) 11.7 fL 9.4-12.3 NUCLEATED RED BLOOD CELLS (BEAKER) (test rllx=935) 0 /100 WBC 0-0 RAD, CHEST, 1 VIEW, NON [id number] 06:12:00Reason for exam:->evaluation of pulmonary edemaShould this be performed at the bedside?->YesFINAL REPORT RAD, CHEST, 1 VIEW, NON DEPT INDICATION: evaluation of pulmonary edema COMPARISON: Prior day's exam FINDINGS: Portable frontal view of the chest. IMPRESSION: Support Lines: NG tube descends below the diaphragm. Left-sided PICC tip projects over the SVC. Lungs and pleura: Bilateral lower lobe airspace opacities and left retrocardiac opacity are unchanged No pneumothorax.Heart and mediastinum: Stable contours. Stable surgical changes.Additional findings: None. Signed: Gail Ventura Verified Date/Time: 08/30/2018 06:12:39 Reading Location: [address] Neuro Reading Room -GLUCOSE [id number] 05:46:00* Test Item Value Reference Range Comments POC-GLUCOSE METER (BEAKER) (test lcqv=9148) 203 mg/dL 70-110 TESTED AT [facility] [address] [facility] [address] PT/[id number] 05:41:00* Test Item Value Reference Range Comments PROTIME (BEAKER) (test moru=669) 15.2 seconds 11.7-14.7 INR (BEAKER) (test lidy=055) 1.2 <=5.9 PARTIAL THROMBOPLASTIN TIME (BEAKER) (test fsib=640) 43.8 seconds 22.5-36.0 RECOMMENDED COUMADIN/WARFARIN INR THERAPY RANGESSTANDARD DOSE: 2.0 - 3.0 Inclu hola: PROPHYLAXIS for venous thrombosis, systemic embolization; TREATMENT for rodrigo ous thrombosis and/or pulmonary embolus.HIGH RISK: Target INR is 2.5-3.5 for pat ients with mechanical heart valves.BLOOD GAS, [id number] 05:19:00* Test Item Value Reference Range Comments PH VENOUS (BEAKER) (test zdxh=873) 7.44 7.32-7.42 PCO2 VENOUS (BEAKER) (test ygxv=001) 58 mmHg 41-51 PO2 VENOUS (BEAKER) (test fwft=602) 37 mmHg 25-40 O2 SATURATION VENOUS (BEAKER) (test wjeh=914) 72.7 % 40.0-70.0 HCO3 VENOUS (BEAKER) (test dymg=337) 39 mmol/L 21-29 BASE EXCESS VENOUS (BEAKER) (test goic=754) 12.6 mmol/L -2.0-3.0 PATIENT TEMPERATURE (BEAKER) (test hytk=4483) 36.5 C FIO2 (BEAKER) (test fyst=1441) 100.0 % [id number] 05:03:00* Test Item Value Reference Range Comments PHOSPHORUS (BEAKER) (test lgto=763) 2.7 mg/dL 2.3-4.7 [id number] 05:03:00* Test Item Value Reference Range Comments MAGNESIUM (BEAKER) (test kxca=600) 1.9 mg/dL 1.6-2.6 BASIC METABOLIC [id number] 05:03:00* Test Item Value Reference Range Comments SODIUM (BEAKER) (test ehua=445) 141 meq/L 136-145 POTASSIUM (BEAKER) (test tlmh=199) 3.9 meq/L 3.5-5.1 CHLORIDE (BEAKER) (test pqrh=705) 99 meq/L 98-107 CO2 (BEAKER) (test zxqp=324) 36 meq/L 22-29 BLOOD UREA NITROGEN (BEAKER) (test abbn=819) 24 mg/dL 7-21 CREATININE (BEAKER) (test jcsu=388) 0.49 mg/dL 0.57-1.25 GLUCOSE RANDOM (BEAKER) (test svyd=512) 165 mg/dL 70-105 CALCIUM (BEAKER) (test uhqj=503) 10.5 mg/dL 8.4-10.2 EGFR (BEAKER) (test jvnq=1027) 129 mL/min/1.73 sq m ESTIMATED GFR IS NOT ACCURATE CREATININE CLEARANCE IN PREDICTING GLOMERULAR FILTRATION RATE. ESTIMATED GFR IS NOT APPLICABLE FOR DIALYSIS PATIENTS. POCT-GLUCOSE [id number] 00:06:00* Test Item Value Reference Range Comments POC-GLUCOSE METER (BEAKER) (test jrhp=9164) 145 mg/dL 70-110 TESTED AT [facility] [address] [facility] [address] [id number] 21:37:00* Test Item Value Reference Range Comments PHOSPHORUS (BEAKER) (test kowi=941) 3.0 mg/dL 2.3-4.7 [id number] 21:37:00* Test Item Value Reference Range Comments MAGNESIUM (BEAKER) (test skcb=382) 1.9 mg/dL 1.6-2.6 BASIC METABOLIC [id number] 21:37:00* Test Item Value Reference Range Comments SODIUM (BEAKER) (test pvyk=474) 141 meq/L 136-145 POTASSIUM (BEAKER) (test ekbw=015) 4.1 meq/L 3.5-5.1 CHLORIDE (BEAKER) (test bwbr=692) 98 meq/L 98-107 CO2 (BEAKER) (test bdnd=224) 36 meq/L 22-29 BLOOD UREA NITROGEN (BEAKER) (test fuox=850) 26 mg/dL 7-21 CREATININE (BEAKER) (test vbzj=888) 0.46 mg/dL 0.57-1.25 GLUCOSE RANDOM (BEAKER) (test hjzd=430) 115 mg/dL 70-105 CALCIUM (BEAKER) (test yhcs=340) 10.2 mg/dL 8.4-10.2 EGFR (BEAKER) (test okvn=1387) 139 mL/min/1.73 sq m ESTIMATED GFR IS NOT ACCURATE CREATININE CLEARANCE IN PREDICTING GLOMERULAR FILTRATION RATE. ESTIMATED GFR IS NOT APPLICABLE FOR DIALYSIS PATIENTS. POCT-GLUCOSE [id number] 18:11:00* Test Item Value Reference Range Comments POC-GLUCOSE METER (BEAKER) (test zyfn=9184) 146 mg/dL 70-110 TESTED AT [place] [id number] [facility] [address] POCT-GLUCOSE [id number] 12:12:00* Test Item Value Reference Range Comments POC-GLUCOSE METER (BEAKER) (test onvz=6983) 190 mg/dL 70-110 TESTED AT [place] [id number] [facility] [address] RAD, CHEST, 1 VIEW, NON [id number] 08:54:00Reason for exam:->hypoxiaShould this be performed at the bedside?->YesFINAL REPORT TECHNIQUE: Frontal chest radiograph dated 08/29/2018. CLINICAL HISTORY: Hypoxia COMPARISON STUDY: Chest radiograph dated 08/28/2018 IMPRESSION:Endotracheal tube has been removed. Remaining life support tubes and lines are unchanged. Stable small left pleural effusion and bibasilar atelectasis. No pneumothorax. Cardiomediastinal silhouette is is stable in size. No pulmonary edema. Bones appear osteopenic. Signed: Edinson Sainieport Verified Date/Time: 08/29/2018 08:54:54 Reading Location: [facility] Radiology Reading Room W/PLT COUNT & AUTO [id number] 08:03:00* Test Item Value Reference Range Comments WHITE BLOOD CELL COUNT (BEAKER) (test fkol=432) 23.0 K/ L 3.5-10.5 RED BLOOD CELL COUNT (BEAKER) (test tpjk=082) 3.28 M/ L 3.93-5.22 HEMOGLOBIN (BEAKER) (test ownf=829) 7.7 GM/DL 11.2-15.7 HEMATOCRIT (BEAKER) (test vkuu=858) 26.3 % 34.1-44.9 MEAN CORPUSCULAR VOLUME (BEAKER) (test zsha=195) 80.2 fL 79.4-94.8 MEAN CORPUSCULAR HEMOGLOBIN (BEAKER) (test npjz=977) 23.5 pg 25.6-32.2 MEAN CORPUSCULAR HEMOGLOBIN CONC (BEAKER) (test bugg=357) 29.3 GM/DL 32.2-35.5 RED CELL DISTRIBUTION WIDTH (BEAKER) (test itel=655) 16.5 % 11.7-14.4 PLATELET COUNT (BEAKER) (test zjyj=224) 558 K/CU MM 150-450 MEAN PLATELET VOLUME (BEAKER) (test ampb=513) 11.6 fL 9.4-12.3 NUCLEATED RED BLOOD CELLS (BEAKER) (test ngwr=324) 0 /100 WBC 0-0 (CELLAVISION MANUAL DIFF)2018-08-29 08:03:00* Test Item Value Reference Range Comments NEUTROPHILS - REL (CELLAVISION)(BEAKER) (test ermj=2550) 84 % LYMPHOCYTES - REL (CELLAVISION)(BEAKER) (test kily=9635) 5 % MONOCYTES - REL (CELLAVISION)(BEAKER) (test vbzw=8836) 6 % EOSINOPHILS - REL (CELLAVISION)(BEAKER) (test exdk=9036) 1 % BANDS - REL (CELLAVISION)(BEAKER) (test ndro=6994) 3 % 0-10 NEUTROPHILS - ABS (CELLAVISION)(BEAKER) (test lzco=8703) 19.32 K/ul 1.56-6.13 LYMPHOCYTES - ABS (CELLAVISION)(BEAKER) (test smia=1195) 1.15 K/ul 1.18-3.74 MONOCYTES - ABS (CELLAVISION)(BEAKER) (test rpvn=4345) 1.38 K/uL 0.24-0.36 EOSINOPHILS - ABS (CELLAVISION)(BEAKER) (test unkk=5561) 0.23 K/uL 0.04-0.36 BANDS - ABS (CELLAVISION)(BEAKER) (test qdnu=8893) 0.69 K/uL 0.00-0.80 TOTAL COUNTED (BEAKER) (test jatb=2605) 100 MANUAL NRBC PER 100 CELLS (BEAKER) (test dzvs=1987) 1 /100 WBC 0-0 SMUDGE CELLS (BEAKER) (test znjw=8588) Present GIANT PLATELETS (BEAKER) (test xwmc=452) Present HYPERSEGMENTATION (CELLAVISION)(BEAKER) (test olif=8749) Present HYPOCHROMIA (BEAKER) (test tdqj=061) 1+ few ANISOCYTOSIS (BEAKER) (test lwfv=879) 1+ few MICROCYTES (BEAKER) (test jbqy=455) 1+ few PLATELET CONCENTRATION (CELLAVISION)(BEAKER) (test cgvq=7396) Increased Received comment: User comments: Slide comments: POCT-GLUCOSE [id number] 06:34:00* Test Item Value Reference Range Comments POC-GLUCOSE METER (BEAKER) (test prdh=1563) 188 mg/dL 70-110 TESTED AT [facility] [address] [facility] [address] [id number] 05:13:00* Test Item Value Reference Range Comments TRIGLYCERIDES (BEAKER) (test awrk=956) 98 mg/dL TRIGLYCERIDE REFERENCE RANGELow Risk <150Borderline Risk 150-199High Risk 200- 499Very High Risk >=[id number] 05:13:00* Test Item Value Reference Range Comments MAGNESIUM (BEAKER) (test rhsx=330) 1.9 mg/dL 1.6-2.6 [id number] 05:13:00* Test Item Value Reference Range Comments PHOSPHORUS (BEAKER) (test xsdk=039) 2.9 mg/dL 2.3-4.7 BASIC METABOLIC [id number] 05:13:00* Test Item Value Reference Range Comments SODIUM (BEAKER) (test grbk=009) 141 meq/L 136-145 POTASSIUM (BEAKER) (test gpaa=755) 3.9 meq/L 3.5-5.1 CHLORIDE (BEAKER) (test csty=298) 101 meq/L 98-107 CO2 (BEAKER) (test eyxn=599) 34 meq/L 22-29 BLOOD UREA NITROGEN (BEAKER) (test xhdt=106) 30 mg/dL 7-21 CREATININE (BEAKER) (test qcrk=431) 0.46 mg/dL 0.57-1.25 GLUCOSE RANDOM (BEAKER) (test xxwg=690) 134 mg/dL 70-105 CALCIUM (BEAKER) (test cise=673) 10.0 mg/dL 8.4-10.2 EGFR (BEAKER) (test dlko=0331) 139 mL/min/1.73 sq m ESTIMATED GFR IS NOT ACCURATE CREATININE CLEARANCE IN PREDICTING GLOMERULAR FILTRATION RATE. ESTIMATED GFR IS NOT APPLICABLE FOR DIALYSIS PATIENTS. PT/[id number] 05:09:00* Test Item Value Reference Range Comments PROTIME (BEAKER) (test rgru=987) 15.7 seconds 11.7-14.7 INR (BEAKER) (test xlhj=521) 1.2 <=5.9 PARTIAL THROMBOPLASTIN TIME (BEAKER) (test xhtf=095) 43.9 seconds 22.5-36.0 RECOMMENDED COUMADIN/WARFARIN INR THERAPY RANGESSTANDARD DOSE: 2.0 - 3.0 Inclu hola: PROPHYLAXIS for venous thrombosis, systemic embolization; TREATMENT for rodrigo ous thrombosis and/or pulmonary embolus.HIGH RISK: Target INR is 2.5-3.5 for pat ients with mechanical heart valves.CALCIUM, [id number] 05:05:00* Test Item Value Reference Range Comments CALCIUM IONIZED (BEAKER) (test kjcf=575) 1.32 mmol/L 1.12-1.27 PH, BLOOD (BEAKER) (test shmz=2188) 7.42 BLOOD GAS, [id number] 04:59:00* Test Item Value Reference Range Comments PH VENOUS (BEAKER) (test jgvw=418) 7.43 7.32-7.42 PCO2 VENOUS (BEAKER) (test edvi=424) 53 mmHg 41-51 PO2 VENOUS (BEAKER) (test jtaw=936) 47 mmHg 25-40 O2 SATURATION VENOUS (BEAKER) (test yfry=912) 84.0 % 40.0-70.0 HCO3 VENOUS (BEAKER) (test leqz=558) 34 mmol/L 21-29 BASE EXCESS VENOUS (BEAKER) (test yrti=461) 8.5 mmol/L -2.0-3.0 PATIENT TEMPERATURE (BEAKER) (test pcni=4143) 36.5 C FIO2 (BEAKER) (test nkgm=8172) 100.0 % ANAEROBIC [id number] 04:51:00* Test Item Value Reference Range Comments CULTURE (BEAKER) (test grpt=4083) 3+ Anaerobic gram positive bacilliNo further workup performed POCT-GLUCOSE [id number] 00:29:00* Test Item Value Reference Range Comments POC-GLUCOSE METER (BEAKER) (test wkgm=8792) 165 mg/dL 70-110 TESTED AT [facility] [address] [facility] [address] POCT-GLUCOSE [id number] 19:04:00* Test Item Value Reference Range Comments POC-GLUCOSE METER (BEAKER) (test ytnq=5030) 136 mg/dL 70-110 TESTED AT [facility] [address] [facility] [address] POCT-GLUCOSE [id number] 12:38:00* Test Item Value Reference Range Comments POC-GLUCOSE METER (BEAKER) (test zeqd=0924) 190 mg/dL 70-110 TESTED AT [facility] [address] [facility] [address] CBC W/PLT COUNT & AUTO [id number] 07:45:00* Test Item Value Reference Range Comments WHITE BLOOD CELL COUNT (BEAKER) (test momf=957) 20.6 K/ L 3.5-10.5 RED BLOOD CELL COUNT (BEAKER) (test vjcq=351) 2.97 M/ L 3.93-5.22 HEMOGLOBIN (BEAKER) (test vwrn=615) 7.1 GM/DL 11.2-15.7 HEMATOCRIT (BEAKER) (test hman=683) 23.4 % 34.1-44.9 MEAN CORPUSCULAR VOLUME (BEAKER) (test mkwb=154) 78.8 fL 79.4-94.8 MEAN CORPUSCULAR HEMOGLOBIN (BEAKER) (test yejn=910) 23.9 pg 25.6-32.2 MEAN CORPUSCULAR HEMOGLOBIN CONC (BEAKER) (test xcgm=326) 30.3 GM/DL 32.2-35.5 RED CELL DISTRIBUTION WIDTH (BEAKER) (test hrww=734) 16.6 % 11.7-14.4 PLATELET COUNT (BEAKER) (test pliw=432) 542 K/CU MM 150-450 MEAN PLATELET VOLUME (BEAKER) (test yfbs=919) 10.5 fL 9.4-12.3 NUCLEATED RED BLOOD CELLS (BEAKER) (test fdik=807) 0 /100 WBC 0-0 (CELLAVISION MANUAL DIFF)2018-08-28 07:45:00* Test Item Value Reference Range Comments NEUTROPHILS - REL (CELLAVISION)(BEAKER) (test esvd=7631) 83 % LYMPHOCYTES - REL (CELLAVISION)(BEAKER) (test gdga=4496) 4 % MONOCYTES - REL (CELLAVISION)(BEAKER) (test mupe=2692) 11 % EOSINOPHILS - REL (CELLAVISION)(BEAKER) (test yoyj=5191) 1 % ATYPICAL LYMPHOCYTES - REL (CELLAVISION)(BEAKER) (test kgqi=2957) 1 % 0-0 NEUTROPHILS - ABS (CELLAVISION)(BEAKER) (test relu=6963) 17.10 K/ul 1.56-6.13 LYMPHOCYTES - ABS (CELLAVISION)(BEAKER) (test fjva=5406) 0.82 K/ul 1.18-3.74 MONOCYTES - ABS (CELLAVISION)(BEAKER) (test yqdk=8602) 2.27 K/uL 0.24-0.36 EOSINOPHILS - ABS (CELLAVISION)(BEAKER) (test ueca=0406) 0.21 K/uL 0.04-0.36 ATYPICAL LYMPHOCYTES - ABS (CELLAVISION)(BEAKER) (test vazg=4491) 0.21 K/uL 0.00-0.00 TOTAL COUNTED (BEAKER) (test vpsw=2631) 100 WBC MORPHOLOGY (BEAKER) (test pqad=966) Normal LARGE PLT(BEAKER) (test vjqg=5241) Present POLYCHROMATOPHILLIC RBCS(BEAKER) (test dega=319) 1+ few HYPOCHROMIA (BEAKER) (test iomc=003) 1+ few ARTIFACT (CELLAVISION)(BEAKER) (test czzb=0189) Present PLATELET CONCENTRATION (CELLAVISION)(BEAKER) (test bkfd=5203) Increased Received comment: User comments: Slide comments: POCT-GLUCOSE [id number] 06:02:00* Test Item Value Reference Range Comments POC-GLUCOSE METER (BEAKER) (test qnpo=9835) 159 mg/dL 70-110 TESTED AT [facility] [address] [facility] [address] BLOOD GAS, [id number] 04:53:00* Test Item Value Reference Range Comments PH ARTERIAL (BEAKER) (test nzmv=325) 7.40 7.35-7.45 PCO2 ARTERIAL (BEAKER) (test aetf=301) 57 mmHg 35-45 PO2 ARTERIAL (BEAKER) (test zemr=309) 132 mmHg 80-90 O2 SATURATION ARTERIAL (BEAKER) (test tfvo=760) 98.4 % 96.0-97.0 HCO3 ARTERIAL (BEAKER) (test qesf=114) 34 mmol/L 21-29 BASE EXCESS ARTERIAL (BEAKER) (test fzps=083) 8.9 mmol/L -2.0-3.0 PATIENT TEMPERATURE (BEAKER) (test cssj=8412) 38.5 C FIO2 (BEAKER) (test guee=1326) 60.0 % RAD, CHEST, 1 VIEW, NON [id number] 04:53:00Reason for exam:->ETT placement verificationShould this be performed at the bedside?->YesFINAL REPORT RAD, CHEST, 1 VIEW, NON DEPT INDICATION: ETT placement verification COMPARISON: Prior day's exam FINDINGS: Portable frontal view of the chest. IMPRESSION: Support Lines: ET tube is 3 cm superior to the milena. NG tube descends below the diaphragm. Left-sided PICC tip projects over the SVC. Lungs and pleura: Bilateral lower lobe airspace opacities and left retrocardiac opacity are unchanged No pneumothorax.Heart and mediastinum: Stable contours. Additional findings: None. Signed: Gali Ventura Verified Date/Time: 08/28/2018 04:53:36 Reading Location: [address] Neuro Reading Room [id number] 04:41:00* Test Item Value Reference Range Comments PHOSPHORUS (BEAKER) (test ykzb=769) 2.7 mg/dL 2.3-4.7 [id number] 04:41:00* Test Item Value Reference Range Comments MAGNESIUM (BEAKER) (test vazc=257) 1.7 mg/dL 1.6-2.6 BASIC METABOLIC [id number] 04:41:00* Test Item Value Reference Range Comments SODIUM (BEAKER) (test bjdb=845) 138 meq/L 136-145 POTASSIUM (BEAKER) (test aswy=559) 3.8 meq/L 3.5-5.1 CHLORIDE (BEAKER) (test vswz=604) 101 meq/L 98-107 CO2 (BEAKER) (test wlqg=571) 30 meq/L 22-29 BLOOD UREA NITROGEN (BEAKER) (test vppv=583) 32 mg/dL 7-21 CREATININE (BEAKER) (test axdr=648) 0.49 mg/dL 0.57-1.25 GLUCOSE RANDOM (BEAKER) (test riyv=509) 126 mg/dL 70-105 CALCIUM (BEAKER) (test xkij=427) 9.4 mg/dL 8.4-10.2 EGFR (BEAKER) (test zryl=1292) 129 mL/min/1.73 sq m ESTIMATED GFR IS NOT ACCURATE CREATININE CLEARANCE IN PREDICTING GLOMERULAR FILTRATION RATE. ESTIMATED GFR IS NOT APPLICABLE FOR DIALYSIS PATIENTS. [id number] 04:38:00* Test Item Value Reference Range Comments PROTIME (JOSE CRUZ) (test cvna=359) 16.3 seconds 11.7-14.7 INR (BEAKER) (test kmod=431) 1.3 <=5.9 PARTIAL THROMBOPLASTIN TIME (BEAKER) (test znjj=251) 49.0 seconds 22.5-36.0 RECOMMENDED COUMADIN/WARFARIN INR THERAPY RANGESSTANDARD DOSE: 2.0 - 3.0 Inclu hola: PROPHYLAXIS for venous thrombosis, systemic embolization; TREATMENT for rodrigo ous thrombosis and/or pulmonary embolus.HIGH RISK: Target INR is 2.5-3.5 for pat ients with mechanical heart valves.POCT-GLUCOSE [id number] 00:12:00* Test Item Value Reference Range Comments POC-GLUCOSE METER (JOSE CRUZ) (test xwnp=8398) 152 mg/dL 70-110 TESTED AT [facility] [address] [facility] [address] RAD, ABDOMEN/KUB, 1 VIEW [id number] 22:31:00Reason for exam:->evaluate for ngt placementFINAL REPORT CLINICAL HISTORY: Enteric tube placement COMPARISON: 08/22/2018 FINDINGS: A single view of the upper abdomen is submitted. The tip of an enteric tube overlies the left upper quadrant in the expected position of the stomach. There are several gas-distended/dilated loops of bowel in the left abdomen for which an obstruction is not excluded. Further evaluation with CT the abdomen and pelvis can be obtained, if indicated. The left hemidiaphragm is elevated. Retrocardiac opacity in the left lung may reflect atelectasis but pneumonitis should be excluded clinically. There is no acute bony abnormality. Signed: Deondre Luaeport Verified Date/Time: 08/27/2018 22:31:39 Reading Location: [address] Reading Room - GLUCOSE [id number] 17:55:00* Test Item Value Reference Range Comments POC-GLUCOSE METER (BEAKER) (test wcxr=8716) 177 mg/dL 70-110 TESTED AT [facility] [address] [facility] [address] SPUTUM CULTURE + GRAM [id number] 15:34:00* Test Item Value Reference Range Comments CULTURE (BEAKER) (test kjox=9801) See comment GRAM STAIN RESULT (BEAKER) (test bvvj=1950) 2+ White blood cells seen GRAM STAIN RESULT (BEAKER) (test wjmk=20674) 0-5 epithelial cells GRAM STAIN RESULT (BEAKER) (test rvxb=155297) 2+ yeast 4+ [id number] 15:04:00* Test Item Value Reference Range Comments PHOSPHORUS (BEAKER) (test sbmx=964) 2.9 mg/dL 2.3-4.7 BASIC METABOLIC [id number] 15:04:00* Test Item Value Reference Range Comments SODIUM (BEAKER) (test oznk=557) 140 meq/L 136-145 POTASSIUM (BEAKER) (test lrym=386) 4.1 meq/L 3.5-5.1 CHLORIDE (BEAKER) (test gpdv=262) 102 meq/L 98-107 CO2 (BEAKER) (test jmaq=412) 31 meq/L 22-29 BLOOD UREA NITROGEN (BEAKER) (test uiks=709) 32 mg/dL 7-21 CREATININE (BEAKER) (test iyis=770) 0.53 mg/dL 0.57-1.25 GLUCOSE RANDOM (BEAKER) (test lpas=262) 173 mg/dL 70-105 CALCIUM (BEAKER) (test qidz=369) 10.0 mg/dL 8.4-10.2 EGFR (BEAKER) (test yxrk=4306) 118 mL/min/1.73 sq m ESTIMATED GFR IS NOT ACCURATE CREATININE CLEARANCE IN PREDICTING GLOMERULAR FILTRATION RATE. ESTIMATED GFR IS NOT APPLICABLE FOR DIALYSIS PATIENTS. POCT-GLUCOSE [id number] 12:03:00* Test Item Value Reference Range Comments POC-GLUCOSE METER (BEAKER) (test tewr=1693) 186 mg/dL 70-110 TESTED AT [facility] [address] [facility] [address] CBC W/PLT COUNT & AUTO [id number] 08:07:00* Test Item Value Reference Range Comments WHITE BLOOD CELL COUNT (BEAKER) (test uhia=469) 23.5 K/ L 3.5-10.5 RED BLOOD CELL COUNT (BEAKER) (test lgxk=144) 3.28 M/ L 3.93-5.22 HEMOGLOBIN (BEAKER) (test eupg=427) 7.8 GM/DL 11.2-15.7 HEMATOCRIT (BEAKER) (test fcgq=840) 25.7 % 34.1-44.9 MEAN CORPUSCULAR VOLUME (BEAKER) (test siws=617) 78.4 fL 79.4-94.8 MEAN CORPUSCULAR HEMOGLOBIN (BEAKER) (test nkbw=173) 23.8 pg 25.6-32.2 MEAN CORPUSCULAR HEMOGLOBIN CONC (BEAKER) (test dacl=663) 30.4 GM/DL 32.2-35.5 RED CELL DISTRIBUTION WIDTH (BEAKER) (test msmk=685) 16.6 % 11.7-14.4 PLATELET COUNT (BEAKER) (test siin=155) 521 K/CU MM 150-450 MEAN PLATELET VOLUME (BEAKER) (test plvb=409) 10.4 fL 9.4-12.3 NUCLEATED RED BLOOD CELLS (BEAKER) (test kuhn=879) 0 /100 WBC 0-0 (CELLAVISION MANUAL DIFF)2018-08-27 08:07:00* Test Item Value Reference Range Comments NEUTROPHILS - REL (CELLAVISION)(BEAKER) (test xbgl=5185) 75 % LYMPHOCYTES - REL (CELLAVISION)(BEAKER) (test gaoh=9742) 7 % MONOCYTES - REL (CELLAVISION)(BEAKER) (test hykq=7964) 7 % EOSINOPHILS - REL (CELLAVISION)(BEAKER) (test fybx=7026) 3 % MYELOCYTES - REL (CELLAVISION)(BEAKER) (test mwjc=6710) 1 % 0-0 BANDS - REL (CELLAVISION)(BEAKER) (test zzsk=1707) 7 % 0-10 NEUTROPHILS - ABS (CELLAVISION)(BEAKER) (test ooan=9202) 17.63 K/ul 1.56-6.13 LYMPHOCYTES - ABS (CELLAVISION)(BEAKER) (test lxub=5587) 1.65 K/ul 1.18-3.74 MONOCYTES - ABS (CELLAVISION)(BEAKER) (test vxpo=2507) 1.65 K/uL 0.24-0.36 EOSINOPHILS - ABS (CELLAVISION)(BEAKER) (test fkxl=9807) 0.71 K/uL 0.04-0.36 MYELOCYTES-ABS (CELLAVISION)(BEAKER) (test avbv=5720) 0.24 K/uL 0.00-0.00 BANDS - ABS (CELLAVISION)(BEAKER) (test vter=3058) 1.65 K/uL 0.00-0.80 TOTAL COUNTED (BEAKER) (test hhiz=8857) 100 MANUAL NRBC PER 100 CELLS (BEAKER) (test serc=6070) 1 /100 WBC 0-0 WBC MORPHOLOGY (BEAKER) (test ksig=512) Normal PLT MORPHOLOGY (BEAKER) (test bfjb=286) Normal POLYCHROMATOPHILLIC RBCS(BEAKER) (test bgbg=477) 1+ few ANISOCYTOSIS (BEAKER) (test bskv=321) 1+ few ARTIFACT (CELLAVISION)(BEAKER) (test tfgw=4158) Present PLATELET CONCENTRATION (CELLAVISION)(BEAKER) (test dymc=9607) Increased Received comment: User comments: Slide comments: BLOOD [id number] 07:01:00* Test Item Value Reference Range Comments CULTURE (BEAKER) (test jlyy=4466) No growth in 5 days BLOOD [id number] 07:01:00* Test Item Value Reference Range Comments CULTURE (BEAKER) (test dsou=7567) No growth in 5 days RAD, CHEST, 1 VIEW, NON [id number] 06:46:00Reason for exam:->ETT placement verificationShould this be performed at the bedside?->YesFINAL REPORT RAD, CHEST, 1 VIEW, NON DEPT INDICATION: ETT placement verification COMPARISON: Prior day's exam FINDINGS: Portable frontal view of the chest. IMPRESSION: Support Lines: ET tube tip is 4 cm superior to the milena. NG tube is present. Left-sided PICC tip in the SVC. Lungs and pleura: Hazy airspace opacity within the right lung is increased in the interim No pn eumothorax.Heart and mediastinum: Stable contours. Additional findings: None. Si gned: Gail Ventura MDReport Verified Date/Time: 08/27/2018 06:46:32 Reading Location: [address] Neuro Reading Room -GLUCOSE [id number] 05:49:00* Test Item Value Reference Range Comments POC-GLUCOSE METER (BEAKER) (test inyi=7488) 152 mg/dL 70-110 TESTED AT [facility] [address] [facility] [address] [id number] 05:26:00* Test Item Value Reference Range Comments PHOSPHORUS (BEAKER) (test rccf=815) 2.9 mg/dL 2.3-4.7 [id number] 05:26:00* Test Item Value Reference Range Comments MAGNESIUM (BEAKER) (test ymht=321) 1.7 mg/dL 1.6-2.6 BASIC METABOLIC [id number] 05:26:00* Test Item Value Reference Range Comments SODIUM (BEAKER) (test vixc=663) 140 meq/L 136-145 POTASSIUM (BEAKER) (test nnqg=016) 4.0 meq/L 3.5-5.1 CHLORIDE (BEAKER) (test eigo=839) 103 meq/L 98-107 CO2 (BEAKER) (test naoh=436) 30 meq/L 22-29 BLOOD UREA NITROGEN (BEAKER) (test gwjc=314) 33 mg/dL 7-21 CREATININE (BEAKER) (test psfg=562) 0.51 mg/dL 0.57-1.25 GLUCOSE RANDOM (BEAKER) (test nsuy=167) 145 mg/dL 70-105 CALCIUM (BEAKER) (test yfdd=936) 10.3 mg/dL 8.4-10.2 EGFR (BEAKER) (test frdx=0608) 123 mL/min/1.73 sq m ESTIMATED GFR IS NOT ACCURATE CREATININE CLEARANCE IN PREDICTING GLOMERULAR FILTRATION RATE. ESTIMATED GFR IS NOT APPLICABLE FOR DIALYSIS PATIENTS. BLOOD GAS, [id number] 05:23:00* Test Item Value Reference Range Comments PH ARTERIAL (BEAKER) (test tzqg=156) 7.41 7.35-7.45 PCO2 ARTERIAL (BEAKER) (test dalo=293) 52 mmHg 35-45 PO2 ARTERIAL (BEAKER) (test tqjr=212) 162 mmHg 80-90 O2 SATURATION ARTERIAL (BEAKER) (test wzfl=820) 99.0 % 96.0-97.0 HCO3 ARTERIAL (BEAKER) (test zufg=815) 33 mmol/L 21-29 BASE EXCESS ARTERIAL (BEAKER) (test wfmy=794) 7.2 mmol/L -2.0-3.0 PATIENT TEMPERATURE (BEAKER) (test idlf=9962) 37.5 C FIO2 (BEAKER) (test fvka=9095) 60.0 % [id number] 05:08:00* Test Item Value Reference Range Comments PROTIME (BEAKER) (test vkzs=133) 15.6 seconds 11.7-14.7 INR (BEAKER) (test miwy=727) 1.2 <=5.9 PARTIAL THROMBOPLASTIN TIME (BEAKER) (test lyhi=002) 44.0 seconds 22.5-36.0 RECOMMENDED COUMADIN/WARFARIN INR THERAPY RANGESSTANDARD DOSE: 2.0 - 3.0 Inclu hola: PROPHYLAXIS for venous thrombosis, systemic embolization; TREATMENT for rodrigo ous thrombosis and/or pulmonary embolus.HIGH RISK: Target INR is 2.5-3.5 for pat ients with mechanical heart valves.POCT-GLUCOSE [id number] 00:43:00* Test Item Value Reference Range Comments POC-GLUCOSE METER (BEAKER) (test rzbb=8882) 187 mg/dL 70-110 TESTED AT [address] [address] POCT-GLUCOSE [id number] 18:28:00* Test Item Value Reference Range Comments POC-GLUCOSE METER (BEAKER) (test twsy=1758) 195 mg/dL 70-110 TESTED AT [address] [address] POCT-GLUCOSE [id number] 12:11:00* Test Item Value Reference Range Comments POC-GLUCOSE METER (BEAKER) (test zjma=0626) 257 mg/dL 70-110 TESTED AT [facility] [address] [facility] [address] POCT-GLUCOSE [id number] 06:45:00* Test Item Value Reference Range Comments POC-GLUCOSE METER (BEAKER) (test kddr=4515) 275 mg/dL 70-110 TESTED AT [facility] [address] [facility] [address] CBC W/PLT COUNT & AUTO [id number] 04:12:00* Test Item Value Reference Range Comments WHITE BLOOD CELL COUNT (BEAKER) (test rynb=055) 17.4 K/ L 3.5-10.5 RED BLOOD CELL COUNT (BEAKER) (test pcfo=439) 3.35 M/ L 3.93-5.22 HEMOGLOBIN (BEAKER) (test dvqd=089) 8.0 GM/DL 11.2-15.7 HEMATOCRIT (BEAKER) (test hssg=291) 26.3 % 34.1-44.9 MEAN CORPUSCULAR VOLUME (BEAKER) (test wwdt=564) 78.5 fL 79.4-94.8 MEAN CORPUSCULAR HEMOGLOBIN (BEAKER) (test eoeo=709) 23.9 pg 25.6-32.2 MEAN CORPUSCULAR HEMOGLOBIN CONC (BEAKER) (test bfax=441) 30.4 GM/DL 32.2-35.5 RED CELL DISTRIBUTION WIDTH (BEAKER) (test rqhx=265) 16.6 % 11.7-14.4 PLATELET COUNT (BEAKER) (test xubb=204) 549 K/CU MM 150-450 MEAN PLATELET VOLUME (BEAKER) (test zgox=373) 10.4 fL 9.4-12.3 NUCLEATED RED BLOOD CELLS (BEAKER) (test evby=771) 0 /100 WBC 0-0 NEUTROPHILS RELATIVE PERCENT (BEAKER) (test qhig=469) 83 % LYMPHOCYTES RELATIVE PERCENT (BEAKER) (test wyia=530) 7 % MONOCYTES RELATIVE PERCENT (BEAKER) (test hqtw=061) 6 % EOSINOPHILS RELATIVE PERCENT (BEAKER) (test bken=445) 0 % BASOPHILS RELATIVE PERCENT (BEAKER) (test cmmr=481) 0 % NEUTROPHILS ABSOLUTE COUNT (BEAKER) (test orhe=347) 14.53 K/ L 1.56-6.13 LYMPHOCYTES ABSOLUTE COUNT (BEAKER) (test ovco=197) 1.18 K/ L 1.18-3.74 MONOCYTES ABSOLUTE COUNT (BEAKER) (test qupz=961) 1.06 K/ L 0.24-0.36 EOSINOPHILS ABSOLUTE COUNT (BEAKER) (test czeh=308) 0.04 K/ L 0.04-0.36 BASOPHILS ABSOLUTE COUNT (BEAKER) (test gfsm=876) 0.02 K/ L 0.01-0.08 IMMATURE GRANULOCYTES-RELATIVE PERCENT (BEAKER) (test eykb=3189) 3 % 0-1 BLOOD GAS, [id number] 04:02:00* Test Item Value Reference Range Comments PH ARTERIAL (BEAKER) (test tjhs=205) 7.40 7.35-7.45 PCO2 ARTERIAL (BEAKER) (test tfcj=887) 50 mmHg 35-45 PO2 ARTERIAL (BEAKER) (test oqyg=656) 88 mmHg 80-90 O2 SATURATION ARTERIAL (BEAKER) (test lvgv=821) 96.2 % 96.0-97.0 HCO3 ARTERIAL (BEAKER) (test djnw=509) 30 mmol/L 21-29 BASE EXCESS ARTERIAL (BEAKER) (test befc=768) 5.0 mmol/L -2.0-3.0 PATIENT TEMPERATURE (BEAKER) (test igbd=8090) 38.0 C FIO2 (BEAKER) (test uxkn=3320) 60.0 % [id number] 03:58:00* Test Item Value Reference Range Comments PROTIME (BEAKER) (test vwqb=176) 15.4 seconds 11.7-14.7 INR (BEAKER) (test mriu=088) 1.2 <=5.9 PARTIAL THROMBOPLASTIN TIME (BEAKER) (test abzc=463) 38.3 seconds 22.5-36.0 RECOMMENDED COUMADIN/WARFARIN INR THERAPY RANGESSTANDARD DOSE: 2.0 - 3.0 Inclu hola: PROPHYLAXIS for venous thrombosis, systemic embolization; TREATMENT for rodrigo ous thrombosis and/or pulmonary embolus.HIGH RISK: Target INR is 2.5-3.5 for pat ients with mechanical heart valves.RAD, CHEST, 1 VIEW, NON [id number] 03:39:00Reason for exam:->ETT placement verificationShould this be performed at the bedside?->YesFINAL REPORT CLINICAL INDICATION: Support lines. Comparison: 08/25/2018 The cardiomediastinal contours are stable. Central pulmonary vascular congestion and bilateral parenchymal and pleural opacities are partially improved, suggesting improving pulmonary edema and decreasing effusions. There is no pneumothorax. Support lines are stable. Signed: Deondre Lua MDReport Verified Date/Time: 2018 03:39:17 Reading Location: [address] Reading Room -GLUCOSE [id number] 00:20:00* Test Item Value Reference Range Comments POC-GLUCOSE METER (BEAKER) (test hwyp=9500) 262 mg/dL 70-110 TESTED AT [facility] [address] [facility] [address] [id number] 00:18:00* Test Item Value Reference Range Comments MAGNESIUM (BEAKER) (test ynzf=757) 2.0 mg/dL 1.6-2.6 Specimen slightly hemolyzed [id number] 00:18:00* Test Item Value Reference Range Comments PHOSPHORUS (BEAKER) (test vyko=279) 2.5 mg/dL 2.3-4.7 Specimen slightly hemolyzed BASIC METABOLIC [id number] 00:18:00* Test Item Value Reference Range Comments SODIUM (BEAKER) (test itij=738) 138 meq/L 136-145 POTASSIUM (BEAKER) (test lkyp=482) 4.3 meq/L 3.5-5.1 Specimen slightly hemolyzed CHLORIDE (BEAKER) (test aesn=980) 104 meq/L 98-107 CO2 (BEAKER) (test culp=257) 25 meq/L 22-29 BLOOD UREA NITROGEN (BEAKER) (test urkt=921) 35 mg/dL 7-21 CREATININE (BEAKER) (test loui=989) 0.59 mg/dL 0.57-1.25 Specimen slightly hemolyzed GLUCOSE RANDOM (BEAKER) (test apnv=863) 227 mg/dL 70-105 CALCIUM (BEAKER) (test lyes=076) 9.8 mg/dL 8.4-10.2 EGFR (BEAKER) (test gzew=5389) 105 mL/min/1.73 sq m ESTIMATED GFR IS NOT ACCURATE CREATININE CLEARANCE IN PREDICTING GLOMERULAR FILTRATION RATE. ESTIMATED GFR IS NOT APPLICABLE FOR DIALYSIS PATIENTS. VANCOMYCIN LEVEL, [id number] 22:30:00* Test Item Value Reference Range Comments VANCOMYCIN TROUGH (BEAKER) (test hjdl=133) 16.9 ug/mL 10.0-20.0 POCT-GLUCOSE [id number] 18:29:00* Test Item Value Reference Range Comments POC-GLUCOSE METER (BEAKER) (test eenn=0663) 290 mg/dL 70-110 TESTED AT [address] [address] SURGICALLY OBTAINED CULTURE + GRAM [id number] 16:34:00* Test Item Value Reference Range Comments CULTURE (BEAKER) (test zzlf=0233) ENTEROBACTER CLOACAE COMPLEX 1+ Enterobacter cloacae complex Amikacin (test code=1) Aztreonam (test code=32) Cefepime (test code=51) Cefoxitin (test code=68) Ceftazidime (test code=27) Ceftriaxone (test code=52) Ertapenem (test code=38) Gentamicin (test code=18) Levofloxacin (test code=22) Meropenem (test code=34) Nitrofurantoin (test code=23) Piperacillin + Tazobactam (test code=29) Tetracycline (test code=2) Tobramycin (test code=25) Trimethoprim + Sulfamethoxazole (test code=47) CULTURE (BEAKER) (test fcey=4402) <1+ Escherichia coli CULTURE (BEAKER) (test wada=2317) ESCHERICHIA COLI 1+ Christal albicans Amikacin (test code=1) Ampicillin + Sulbactam (test code=6) Aztreonam (test code=32) Cefepime (test code=51) Cefoxitin (test code=68) Ceftazidime (test code=27) Ceftriaxone (test code=52) Ertapenem (test code=38) Gentamicin (test code=18) Levofloxacin (test code=22) Meropenem (test code=34) Nitrofurantoin (test code=23) Piperacillin + Tazobactam (test code=29) Tetracycline (test code=2) Tobramycin (test code=25) Trimethoprim + Sulfamethoxazole (test code=47) GRAM STAIN RESULT (BEAKER) (test yijy=8019) 3+ WBCs GRAM STAIN RESULT (BEAKER) (test meoj=418858) 1+ gram positive rods GRAM STAIN RESULT (BEAKER) (test gswp=769423) <1+ budding yeast BLOOD GAS, [id number] 15:18:00* Test Item Value Reference Range Comments PH ARTERIAL (BEAKER) (test fuch=146) 7.37 7.35-7.45 PCO2 ARTERIAL (BEAKER) (test ugqt=511) 50 mmHg 35-45 PO2 ARTERIAL (BEAKER) (test ueib=366) 81 mmHg 80-90 O2 SATURATION ARTERIAL (BEAKER) (test jdgy=462) 94.6 % 96.0-97.0 HCO3 ARTERIAL (BEAKER) (test hyvc=921) 28 mmol/L 21-29 BASE EXCESS ARTERIAL (BEAKER) (test dnkt=246) 2.5 mmol/L -2.0-3.0 PATIENT TEMPERATURE (BEAKER) (test fbfb=5589) 38.4 C FIO2 (BEAKER) (test quhm=6070) 60 % This is a corrected result. Previous result was 21.0 % on 08/25/2018 at 1045 [employer]SEM[employer] MACHINE SET UP MECHANIC URINALYSIS W/ REFLEX URINE [id number] 14:09:00* Test Item Value Reference Range Comments COLOR (BEAKER) (test bjfe=252) Yellow CLARITY (BEAKER) (test cpiu=073) Clear SPECIFIC GRAVITY UA (BEAKER) (test pejo=415) 1.019 1.001-1.035 PH UA (BEAKER) (test xssn=988) 6.0 5.0-8.0 PROTEIN UA (BEAKER) (test iard=556) 30 mg/dL Negative GLUCOSE UA (BEAKER) (test opyg=950) 70 mg/dL Negative KETONES UA (BEAKER) (test lrvf=430) Negative Negative BILIRUBIN UA (BEAKER) (test ztix=898) Negative Negative BLOOD UA (BEAKER) (test ivyd=481) Negative Negative NITRITE UA (BEAKER) (test tofi=972) Negative Negative LEUKOCYTE ESTERASE UA (BEAKER) (test tygw=029) Negative Negative UROBILINOGEN UA (BEAKER) (test wpsz=544) 0.2 mg/dL 0.2-1.0 RBC UA (BEAKER) (test jjyq=965) 2 /HPF WBC UA (BEAKER) (test blqi=941) 2 /HPF BACTERIA (BEAKER) (test jwyx=376) Rare MUCUS (BEAKER) (test mqpj=2863) Rare HYALINE CASTS (BEAKER) (test aqby=319) 4 /LPF CALCIUM OXALATE CRYSTALS (BEAKER) (test eibc=588) Rare YEAST (BEAKER) (test uzdd=7864) Rare SOURCE(BEAKER) (test sbfn=9048) POCT-GLUCOSE [id number] 13:01:00* Test Item Value Reference Range Comments POC-GLUCOSE METER (BEAKER) (test xuzj=0031) 268 mg/dL 70-110 TESTED AT [address] [address] POCT-GLUCOSE [id number] 07:56:00* Test Item Value Reference Range Comments POC-GLUCOSE METER (BEAKER) (test beaw=7645) 291 mg/dL 70-110 TESTED AT [address] [address] POCT-GLUCOSE [id number] 06:00:00* Test Item Value Reference Range Comments POC-GLUCOSE METER (BEAKER) (test mhdc=2975) 296 mg/dL 70-110 TESTED AT [address] [address] BLOOD GAS, [id number] 04:52:00* Test Item Value Reference Range Comments PH ARTERIAL (BEAKER) (test olfc=197) 7.38 7.35-7.45 PCO2 ARTERIAL (BEAKER) (test xrgm=045) 50 mmHg 35-45 PO2 ARTERIAL (BEAKER) (test giqa=721) 117 mmHg 80-90 O2 SATURATION ARTERIAL (BEAKER) (test pelg=319) 97.8 % 96.0-97.0 HCO3 ARTERIAL (BEAKER) (test lidg=022) 29 mmol/L 21-29 BASE EXCESS ARTERIAL (BEAKER) (test khnh=124) 3.5 mmol/L -2.0-3.0 PATIENT TEMPERATURE (BEAKER) (test zsiu=9775) 39.0 C FIO2 (BEAKER) (test kvvu=7462) 40.0 % [id number] 04:21:00* Test Item Value Reference Range Comments PHOSPHORUS (BEAKER) (test qrxu=844) 2.0 mg/dL 2.3-4.7 [id number] 04:21:00* Test Item Value Reference Range Comments MAGNESIUM (BEAKER) (test ssvc=466) 1.8 mg/dL 1.6-2.6 BASIC METABOLIC [id number] 04:21:00* Test Item Value Reference Range Comments SODIUM (BEAKER) (test xjfo=200) 141 meq/L 136-145 POTASSIUM (BEAKER) (test xfrq=033) 4.6 meq/L 3.5-5.1 CHLORIDE (BEAKER) (test nwhh=555) 108 meq/L 98-107 CO2 (BEAKER) (test fenr=813) 27 meq/L 22-29 BLOOD UREA NITROGEN (BEAKER) (test kqse=843) 32 mg/dL 7-21 CREATININE (BEAKER) (test ktyv=839) 0.63 mg/dL 0.57-1.25 GLUCOSE RANDOM (BEAKER) (test vbel=666) 244 mg/dL 70-105 CALCIUM (BEAKER) (test ovfi=599) 10.7 mg/dL 8.4-10.2 EGFR (BEAKER) (test rnvx=7775) 97 mL/min/1.73 sq m ESTIMATED GFR IS NOT ACCURATE CREATININE CLEARANCE IN PREDICTING GLOMERULAR FILTRATION RATE. ESTIMATED GFR IS NOT APPLICABLE FOR DIALYSIS PATIENTS. [id number] 04:16:00* Test Item Value Reference Range Comments PROTIME (BEAKER) (test mqji=620) 14.2 seconds 11.7-14.7 INR (BEAKER) (test svxw=017) 1.1 <=5.9 PARTIAL THROMBOPLASTIN TIME (BEAKER) (test glrs=148) 42.6 seconds 22.5-36.0 RECOMMENDED COUMADIN/WARFARIN INR THERAPY RANGESSTANDARD DOSE: 2.0 - 3.0 Inclu hola: PROPHYLAXIS for venous thrombosis, systemic embolization; TREATMENT for rodrigo ous thrombosis and/or pulmonary embolus.HIGH RISK: Target INR is 2.5-3.5 for pat ients with mechanical heart valves.RAD, CHEST, 1 VIEW, NON [id number] 04:14:00Reason for exam:->ETT placement verificationShould this be performed at the bedside?->YesFINAL REPORT CLINICAL INDICATION: Support lines. Comparison: 08/24/2018 The cardiomediastinal contours are stable. Central pulmonary vascular congestion and bilateral parenchymal and pleural opacities are unchanged. There is no pneumothorax. Support lines are stable. Signed: Deondre Lua MDReport Verified Date/Time: 08/25/2018 04:14:18 Reading Location: [address] Reading Room W/PLT COUNT & AUTO DIFFERENTIAL 2018-08-25 04:08:00* Test Item Value Reference Range Comments WHITE BLOOD CELL COUNT (BEAKER) (test xuns=355) 15.9 K/ L 3.5-10.5 RED BLOOD CELL COUNT (BEAKER) (test nmwj=305) 3.17 M/ L 3.93-5.22 HEMOGLOBIN (BEAKER) (test wrto=630) 7.6 GM/DL 11.2-15.7 HEMATOCRIT (BEAKER) (test qrxh=177) 25.1 % 34.1-44.9 MEAN CORPUSCULAR VOLUME (BEAKER) (test fkyp=439) 79.2 fL 79.4-94.8 MEAN CORPUSCULAR HEMOGLOBIN (BEAKER) (test jams=248) 24.0 pg 25.6-32.2 MEAN CORPUSCULAR HEMOGLOBIN CONC (BEAKER) (test qryr=386) 30.3 GM/DL 32.2-35.5 RED CELL DISTRIBUTION WIDTH (BEAKER) (test aqif=948) 16.6 % 11.7-14.4 PLATELET COUNT (BEAKER) (test euac=530) 522 K/CU MM 150-450 MEAN PLATELET VOLUME (BEAKER) (test refr=061) 10.3 fL 9.4-12.3 NUCLEATED RED BLOOD CELLS (BEAKER) (test lkdw=988) 0 /100 WBC 0-0 NEUTROPHILS RELATIVE PERCENT (BEAKER) (test wxrb=776) 85 % LYMPHOCYTES RELATIVE PERCENT (BEAKER) (test oilg=662) 7 % MONOCYTES RELATIVE PERCENT (BEAKER) (test ltsx=115) 5 % EOSINOPHILS RELATIVE PERCENT (BEAKER) (test rhzb=047) 0 % BASOPHILS RELATIVE PERCENT (BEAKER) (test zwlt=713) 0 % NEUTROPHILS ABSOLUTE COUNT (BEAKER) (test hnhs=313) 13.44 K/ L 1.56-6.13 LYMPHOCYTES ABSOLUTE COUNT (BEAKER) (test bjve=803) 1.17 K/ L 1.18-3.74 MONOCYTES ABSOLUTE COUNT (BEAKER) (test qtjg=962) 0.85 K/ L 0.24-0.36 EOSINOPHILS ABSOLUTE COUNT (BEAKER) (test oiow=429) 0.05 K/ L 0.04-0.36 BASOPHILS ABSOLUTE COUNT (BEAKER) (test rsgt=326) 0.02 K/ L 0.01-0.08 IMMATURE GRANULOCYTES-RELATIVE PERCENT (BEAKER) (test aigp=9961) 2 % 0-1 BLOOD GAS, [id number] 02:17:00* Test Item Value Reference Range Comments PH ARTERIAL (BEAKER) (test cybm=948) 7.40 7.35-7.45 PCO2 ARTERIAL (BEAKER) (test pewr=618) 48 mmHg 35-45 PO2 ARTERIAL (BEAKER) (test odgs=278) 143 mmHg 80-90 O2 SATURATION ARTERIAL (BEAKER) (test eoiu=805) 98.6 % 96.0-97.0 HCO3 ARTERIAL (BEAKER) (test okwi=107) 28 mmol/L 21-29 BASE EXCESS ARTERIAL (BEAKER) (test xogh=015) 3.4 mmol/L -2.0-3.0 PATIENT TEMPERATURE (BEAKER) (test wdhj=9012) 39.0 C FIO2 (BEAKER) (test yhqn=7843) 60.0 % POCT-GLUCOSE [id number] 01:10:00* Test Item Value Reference Range Comments POC-GLUCOSE METER (BEAKER) (test bofz=4887) 287 mg/dL 70-110 TESTED AT [facility] [address] [facility] [address] POCT-GLUCOSE [id number] 17:48:00* Test Item Value Reference Range Comments POC-GLUCOSE METER (BEAKER) (test qujp=3480) 234 mg/dL 70-110 TESTED AT [place] [id number] [facility] [address] POCT-GLUCOSE [id number] 11:51:00* Test Item Value Reference Range Comments POC-GLUCOSE METER (BEAKER) (test osbx=7288) 202 mg/dL 70-110 TESTED AT [facility] [address] [facility] [address] RAD, CHEST, 1 VIEW, NON [id number] 10:45:00Reason for exam:->ETT placement verificationShould this be performed at the bedside?->YesFINAL REPORT Comparison: 08/23/2018 TECHNIQUE: Single view of the chest FINDINGS: Bilateral interstitial and airspace opacities and pleural effusions are stable. No gross new lung parenchymal changes. Support lines and tubes are stable. IMPRESSION: No significant interval change. Signed: Dallas Ball MDReport Verified Date/Time: 08/24/2018 10:45:06 Reading Location: [facility] Radiology Reading Room W/PLT COUNT & AUTO [id number] 08:59:00* Test Item Value Reference Range Comments WHITE BLOOD CELL COUNT (BEAKER) (test lwqf=568) 14.2 K/ L 3.5-10.5 RED BLOOD CELL COUNT (BEAKER) (test yatr=039) 3.17 M/ L 3.93-5.22 HEMOGLOBIN (BEAKER) (test pris=321) 7.5 GM/DL 11.2-15.7 HEMATOCRIT (BEAKER) (test tuun=271) 25.0 % 34.1-44.9 MEAN CORPUSCULAR VOLUME (BEAKER) (test ohwa=229) 78.9 fL 79.4-94.8 MEAN CORPUSCULAR HEMOGLOBIN (BEAKER) (test sihq=246) 23.7 pg 25.6-32.2 MEAN CORPUSCULAR HEMOGLOBIN CONC (BEAKER) (test liwr=813) 30.0 GM/DL 32.2-35.5 RED CELL DISTRIBUTION WIDTH (BEAKER) (test iepa=437) 16.8 % 11.7-14.4 PLATELET COUNT (BEAKER) (test rmzr=708) 488 K/CU MM 150-450 MEAN PLATELET VOLUME (BEAKER) (test gyht=000) 10.4 fL 9.4-12.3 NUCLEATED RED BLOOD CELLS (BEAKER) (test icue=854) 0 /100 WBC 0-0 (CELLAVISION MANUAL DIFF)2018-08-24 08:59:00* Test Item Value Reference Range Comments NEUTROPHILS - REL (CELLAVISION)(BEAKER) (test jmei=6857) 68 % LYMPHOCYTES - REL (CELLAVISION)(BEAKER) (test jbxc=0711) 2 % MONOCYTES - REL (CELLAVISION)(BEAKER) (test rzxd=9437) 2 % EOSINOPHILS - REL (CELLAVISION)(BEAKER) (test nujj=6591) 1 % PROMYELOCYTES - REL (CELLAVSION)(BEAKER) (test gvjo=6155) 1 % 0-0 BANDS - REL (CELLAVISION)(BEAKER) (test joaf=2423) 25 % 0-10 ATYPICAL LYMPHOCYTES - REL (CELLAVISION)(BEAKER) (test psas=5134) 1 % 0-0 NEUTROPHILS - ABS (CELLAVISION)(BEAKER) (test unix=1225) 9.66 K/ul 1.56-6.13 LYMPHOCYTES - ABS (CELLAVISION)(BEAKER) (test pquq=9821) 0.28 K/ul 1.18-3.74 MONOCYTES - ABS (CELLAVISION)(BEAKER) (test pkmf=0590) 0.28 K/uL 0.24-0.36 EOSINOPHILS - ABS (CELLAVISION)(BEAKER) (test vevw=4032) 0.14 K/uL 0.04-0.36 PROMYELOCYTES - ABS (CELLAVISION)(BEAKER) (test zrya=1154) 0.14 K/uL 0.00-0.00 BANDS - ABS (CELLAVISION)(BEAKER) (test oice=4647) 3.55 K/uL 0.00-0.80 ATYPICAL LYMPHOCYTES - ABS (CELLAVISION)(BEAKER) (test kqqe=7136) 0.14 K/uL 0.00-0.00 TOTAL COUNTED (BEAKER) (test xabg=9233) 100 CLUMPED PLATELETS (BEAKER) (test ubxk=637) Present SMUDGE CELLS (BEAKER) (test aune=6278) Present GIANT PLATELETS (BEAKER) (test yzjd=404) Present HYPOCHROMIA (BEAKER) (test frgu=507) 1+ few ANISOCYTOSIS (BEAKER) (test pkhn=320) 1+ few MICROCYTES (BEAKER) (test gzqo=191) 1+ few SCHISTOCYTES (BEAKER) (test cvuk=616) 1+ few PLATELET CONCENTRATION (CELLAVISION)(BEAKER) (test ptrx=9840) Adequate Received comment: User comments: Slide comments: VANCOMYCIN LEVEL, TROUGH 2018-08-24 08:38:00* Test Item Value Reference Range Comments VANCOMYCIN TROUGH (BEAKER) (test nhgy=971) 14.0 ug/mL 10.0-20.0 POCT-GLUCOSE [id number] 06:09:00* Test Item Value Reference Range Comments POC-GLUCOSE METER (BEAKER) (test ivir=0905) 199 mg/dL 70-110 TESTED AT [address] [address] BLOOD GAS, [id number] 05:01:00* Test Item Value Reference Range Comments PH ARTERIAL (BEAKER) (test yfti=446) 7.40 7.35-7.45 PCO2 ARTERIAL (BEAKER) (test tlny=578) 44 mmHg 35-45 PO2 ARTERIAL (BEAKER) (test wxuo=438) 104 mmHg 80-90 O2 SATURATION ARTERIAL (BEAKER) (test erib=676) 97.6 % 96.0-97.0 HCO3 ARTERIAL (BEAKER) (test xndm=451) 27 mmol/L 21-29 BASE EXCESS ARTERIAL (BEAKER) (test ovlr=011) 1.8 mmol/L -2.0-3.0 PATIENT TEMPERATURE (BEAKER) (test tbim=2945) 37.5 C FIO2 (BEAKER) (test pdgp=6364) 50.0 % [id number] 04:52:00* Test Item Value Reference Range Comments PHOSPHORUS (BEAKER) (test vpzi=810) 2.5 mg/dL 2.3-4.7 [id number] 04:52:00* Test Item Value Reference Range Comments MAGNESIUM (BEAKER) (test xugh=705) 1.9 mg/dL 1.6-2.6 BASIC METABOLIC [id number] 04:52:00* Test Item Value Reference Range Comments SODIUM (BEAKER) (test tmmn=272) 140 meq/L 136-145 POTASSIUM (BEAKER) (test hiyb=628) 4.6 meq/L 3.5-5.1 CHLORIDE (BEAKER) (test adtt=682) 111 meq/L 98-107 CO2 (BEAKER) (test xjmz=751) 25 meq/L 22-29 BLOOD UREA NITROGEN (BEAKER) (test haki=240) 24 mg/dL 7-21 CREATININE (BEAKER) (test dcvt=005) 0.64 mg/dL 0.57-1.25 GLUCOSE RANDOM (BEAKER) (test exos=351) 174 mg/dL 70-105 CALCIUM (BEAKER) (test pkfd=102) 10.6 mg/dL 8.4-10.2 EGFR (BEAKER) (test evso=4128) 95 mL/min/1.73 sq m ESTIMATED GFR IS NOT ACCURATE CREATININE CLEARANCE IN PREDICTING GLOMERULAR FILTRATION RATE. ESTIMATED GFR IS NOT APPLICABLE FOR DIALYSIS PATIENTS. [id number] 04:48:00* Test Item Value Reference Range Comments PROTIME (BEAKER) (test qeiy=765) 15.6 seconds 11.7-14.7 INR (BEAKER) (test wevu=094) 1.2 <=5.9 PARTIAL THROMBOPLASTIN TIME (BEAKER) (test xizj=794) 46.8 seconds 22.5-36.0 RECOMMENDED COUMADIN/WARFARIN INR THERAPY RANGESSTANDARD DOSE: 2.0 - 3.0 Inclu hola: PROPHYLAXIS for venous thrombosis, systemic embolization; TREATMENT for rodrigo ous thrombosis and/or pulmonary embolus.HIGH RISK: Target INR is 2.5-3.5 for pat ients with mechanical heart valves.POCT-GLUCOSE [id number] 00:13:00* Test Item Value Reference Range Comments POC-GLUCOSE METER (BEAKER) (test qebl=7109) 220 mg/dL 70-110 TESTED AT [facility] [address] [facility] [address] POCT-GLUCOSE [id number] 18:26:00* Test Item Value Reference Range Comments POC-GLUCOSE METER (BEAKER) (test bmon=8439) 190 mg/dL 70-110 TESTED AT [facility] [address] [facility] [address] BLOOD GAS, [id number] 17:26:00* Test Item Value Reference Range Comments PH ARTERIAL (BEAKER) (test rxit=783) 7.43 7.35-7.45 PCO2 ARTERIAL (BEAKER) (test tqtf=473) 39 mmHg 35-45 PO2 ARTERIAL (BEAKER) (test xbxy=943) 65 mmHg 80-90 O2 SATURATION ARTERIAL (BEAKER) (test bxju=461) 92.9 % 96.0-97.0 HCO3 ARTERIAL (BEAKER) (test ieuq=213) 25 mmol/L 21-29 BASE EXCESS ARTERIAL (BEAKER) (test fwhf=992) 1.0 mmol/L -2.0-3.0 PATIENT TEMPERATURE (BEAKER) (test giug=1138) 37.5 C FIO2 (BEAKER) (test jtzo=7196) 50.0 % [id number] 14:11:00* Test Item Value Reference Range Comments MAGNESIUM (BEAKER) (test rbiy=692) 2.0 mg/dL 1.6-2.6 Specimen slightly hemolyzed [id number] 14:11:00* Test Item Value Reference Range Comments PHOSPHORUS (BEAKER) (test zqml=518) 2.1 mg/dL 2.3-4.7 Specimen slightly hemolyzed BASIC METABOLIC [id number] 14:11:00* Test Item Value Reference Range Comments SODIUM (BEAKER) (test pzfg=709) 138 meq/L 136-145 POTASSIUM (BEAKER) (test shsu=741) 4.1 meq/L 3.5-5.1 Specimen slightly hemolyzed CHLORIDE (BEAKER) (test mpqf=430) 110 meq/L 98-107 CO2 (BEAKER) (test igxp=235) 22 meq/L 22-29 BLOOD UREA NITROGEN (BEAKER) (test ogkc=357) 18 mg/dL 7-21 CREATININE (BEAKER) (test laly=674) 0.67 mg/dL 0.57-1.25 Specimen slightly hemolyzed GLUCOSE RANDOM (BEAKER) (test zeof=028) 178 mg/dL 70-105 CALCIUM (BEAKER) (test tqki=963) 10.3 mg/dL 8.4-10.2 EGFR (BEAKER) (test bjob=2083) 90 mL/min/1.73 sq m ESTIMATED GFR IS NOT ACCURATE CREATININE CLEARANCE IN PREDICTING GLOMERULAR FILTRATION RATE. ESTIMATED GFR IS NOT APPLICABLE FOR DIALYSIS PATIENTS. POCT-GLUCOSE [id number] 12:09:00* Test Item Value Reference Range Comments POC-GLUCOSE METER (BEAKER) (test oida=3512) 203 mg/dL 70-110 TESTED AT [facility] [address] [facility] [address] RAD, CHEST, 1 VIEW, NON [id number] 08:26:00Reason for exam:->ETT placement verificationShould this be performed at the bedside?->YesFINAL REPORT Portable chest. CLINICAL HISTORY: ETT placement verification. COMPARISON STUDY: Chest x-ray from yesterday. FINDINGS: The cardiac silhouette is enlarged. The pulmonary parenchyma demonstrates pulmonary venous congestion and airspace disease in the mid to lower lung peck bilaterally with effusions, more pronounced than on previous. The support lines and tubes are unchanged. No pneumothorax is seen. Degenerative changes are noted. IMPRESSION: Slight worsening of CHF. Signed: Samantha Mcknight MDReport Verified Date/Time: 08/23/2018 08:26:46 Reading Location: [facility] Radiology Reading Room - GLUCOSE [id number] 06:44:00* Test Item Value Reference Range Comments POC-GLUCOSE METER (BEAKER) (test rlaw=4289) 264 mg/dL 70-110 TESTED AT [address] [address] POCT-GLUCOSE [id number] 06:42:00* Test Item Value Reference Range Comments POC-GLUCOSE METER (BEAKER) (test zuyi=7466) 282 mg/dL 70-110 TESTED AT [address] [address] BLOOD GAS, [id number] 04:24:00* Test Item Value Reference Range Comments PH ARTERIAL (BEAKER) (test oqow=814) 7.38 7.35-7.45 PCO2 ARTERIAL (BEAKER) (test hyix=513) 33 mmHg 35-45 PO2 ARTERIAL (BEAKER) (test tekg=321) 115 mmHg 80-90 O2 SATURATION ARTERIAL (BEAKER) (test tptr=132) 98.0 % 96.0-97.0 HCO3 ARTERIAL (BEAKER) (test hivi=099) 19 mmol/L 21-29 BASE EXCESS ARTERIAL (BEAKER) (test ecgm=644) -5.4 mmol/L -2.0-3.0 PATIENT TEMPERATURE (BEAKER) (test jmio=9660) 37.9 C FIO2 (BEAKER) (test pakn=0432) 70.0 % [id number] 03:55:00* Test Item Value Reference Range Comments PHOSPHORUS (BEAKER) (test yyfj=162) 1.7 mg/dL 2.3-4.7 [id number] 03:55:00* Test Item Value Reference Range Comments MAGNESIUM (BEAKER) (test tbgn=031) 2.1 mg/dL 1.6-2.6 BASIC METABOLIC [id number] 03:55:00* Test Item Value Reference Range Comments SODIUM (BEAKER) (test bope=307) 139 meq/L 136-145 POTASSIUM (BEAKER) (test ineg=836) 4.5 meq/L 3.5-5.1 CHLORIDE (BEAKER) (test nqap=780) 112 meq/L 98-107 CO2 (BEAKER) (test rfjh=753) 22 meq/L 22-29 BLOOD UREA NITROGEN (BEAKER) (test gvig=634) 17 mg/dL 7-21 CREATININE (BEAKER) (test jviw=206) 0.68 mg/dL 0.57-1.25 GLUCOSE RANDOM (BEAKER) (test ppze=385) 243 mg/dL 70-105 CALCIUM (BEAKER) (test omzr=179) 10.5 mg/dL 8.4-10.2 EGFR (BEAKER) (test lhfy=7302) 89 mL/min/1.73 sq m ESTIMATED GFR IS NOT ACCURATE CREATININE CLEARANCE IN PREDICTING GLOMERULAR FILTRATION RATE. ESTIMATED GFR IS NOT APPLICABLE FOR DIALYSIS PATIENTS. CBC W/PLT COUNT & AUTO [id number] 03:46:00* Test Item Value Reference Range Comments WHITE BLOOD CELL COUNT (BEAKER) (test qaxl=333) 13.7 K/ L 3.5-10.5 RED BLOOD CELL COUNT (BEAKER) (test modv=879) 3.71 M/ L 3.93-5.22 HEMOGLOBIN (BEAKER) (test uaby=807) 8.9 GM/DL 11.2-15.7 HEMATOCRIT (BEAKER) (test tuot=207) 29.4 % 34.1-44.9 MEAN CORPUSCULAR VOLUME (BEAKER) (test jkez=646) 79.2 fL 79.4-94.8 MEAN CORPUSCULAR HEMOGLOBIN (BEAKER) (test gdhz=572) 24.0 pg 25.6-32.2 MEAN CORPUSCULAR HEMOGLOBIN CONC (BEAKER) (test ugvf=396) 30.3 GM/DL 32.2-35.5 RED CELL DISTRIBUTION WIDTH (BEAKER) (test jnai=244) 16.6 % 11.7-14.4 PLATELET COUNT (BEAKER) (test qmrf=470) 501 K/CU MM 150-450 MEAN PLATELET VOLUME (BEAKER) (test rzaf=385) 10.2 fL 9.4-12.3 NUCLEATED RED BLOOD CELLS (BEAKER) (test jovp=581) 0 /100 WBC 0-0 NEUTROPHILS RELATIVE PERCENT (BEAKER) (test ubaz=442) 94 % LYMPHOCYTES RELATIVE PERCENT (BEAKER) (test dswf=956) 3 % MONOCYTES RELATIVE PERCENT (BEAKER) (test hoil=845) 2 % EOSINOPHILS RELATIVE PERCENT (BEAKER) (test jwqa=081) 0 % BASOPHILS RELATIVE PERCENT (BEAKER) (test jwsj=739) 0 % NEUTROPHILS ABSOLUTE COUNT (BEAKER) (test ynrp=710) 12.82 K/ L 1.56-6.13 LYMPHOCYTES ABSOLUTE COUNT (BEAKER) (test svlr=947) 0.45 K/ L 1.18-3.74 MONOCYTES ABSOLUTE COUNT (BEAKER) (test wept=251) 0.33 K/ L 0.24-0.36 EOSINOPHILS ABSOLUTE COUNT (BEAKER) (test eprq=026) 0.01 K/ L 0.04-0.36 BASOPHILS ABSOLUTE COUNT (BEAKER) (test awie=486) 0.02 K/ L 0.01-0.08 IMMATURE GRANULOCYTES-RELATIVE PERCENT (BEAKER) (test shbj=2200) 1 % 0-1 [id number] 03:45:00* Test Item Value Reference Range Comments PROTIME (BEAKER) (test wgxx=761) 16.1 seconds 11.7-14.7 INR (BEAKER) (test kfgj=271) 1.3 <=5.9 PARTIAL THROMBOPLASTIN TIME (BEAKER) (test vriz=325) 42.5 seconds 22.5-36.0 RECOMMENDED COUMADIN/WARFARIN INR THERAPY RANGESSTANDARD DOSE: 2.0 - 3.0 Inclu hola: PROPHYLAXIS for venous thrombosis, systemic embolization; TREATMENT for rodrigo ous thrombosis and/or pulmonary embolus.HIGH RISK: Target INR is 2.5-3.5 for pat ients with mechanical heart valves.POCT-GLUCOSE [id number] 00:40:00* Test Item Value Reference Range Comments POC-GLUCOSE METER (BEAKER) (test rsqb=9787) 245 mg/dL 70-110 TESTED AT [facility] [address] [facility] [address] BLOOD GAS, [id number] 00:36:00* Test Item Value Reference Range Comments PH ARTERIAL (BEAKER) (test dqrl=106) 7.35 7.35-7.45 PCO2 ARTERIAL (BEAKER) (test ohph=953) 38 mmHg 35-45 PO2 ARTERIAL (BEAKER) (test moiu=373) 145 mmHg 80-90 O2 SATURATION ARTERIAL (BEAKER) (test ykkx=782) 98.8 % 96.0-97.0 HCO3 ARTERIAL (BEAKER) (test aihn=233) 21 mmol/L 21-29 BASE EXCESS ARTERIAL (BEAKER) (test mfcu=743) -4.4 mmol/L -2.0-3.0 PATIENT TEMPERATURE (BEAKER) (test zizi=1748) 36.7 C FIO2 (BEAKER) (test cwnq=0408) 80.0 % [id number] 20:50:00* Test Item Value Reference Range Comments PHOSPHORUS (BEAKER) (test keot=478) 3.1 mg/dL 2.3-4.7 [id number] 20:50:00* Test Item Value Reference Range Comments MAGNESIUM (BEAKER) (test kjbp=290) 1.9 mg/dL 1.6-2.6 BASIC METABOLIC [id number] 20:50:00* Test Item Value Reference Range Comments SODIUM (BEAKER) (test ffwy=180) 138 meq/L 136-145 POTASSIUM (BEAKER) (test hxkf=349) 4.3 meq/L 3.5-5.1 CHLORIDE (BEAKER) (test zoxs=660) 111 meq/L 98-107 CO2 (BEAKER) (test gaxf=032) 22 meq/L 22-29 BLOOD UREA NITROGEN (BEAKER) (test jnus=217) 16 mg/dL 7-21 CREATININE (BEAKER) (test ubga=687) 0.66 mg/dL 0.57-1.25 GLUCOSE RANDOM (BEAKER) (test gyhr=501) 174 mg/dL 70-105 CALCIUM (BEAKER) (test xckn=050) 10.4 mg/dL 8.4-10.2 EGFR (BEAKER) (test mmvn=9686) 92 mL/min/1.73 sq m ESTIMATED GFR IS NOT ACCURATE CREATININE CLEARANCE IN PREDICTING GLOMERULAR FILTRATION RATE. ESTIMATED GFR IS NOT APPLICABLE FOR DIALYSIS PATIENTS. CBC (HEMOGRAM ONLY)2018-08-22 20:33:00* Test Item Value Reference Range Comments WHITE BLOOD CELL COUNT (BEAKER) (test jsls=121) 11.3 K/ L 3.5-10.5 RED BLOOD CELL COUNT (BEAKER) (test ljqh=047) 3.98 M/ L 3.93-5.22 HEMOGLOBIN (BEAKER) (test gyqr=501) 9.6 GM/DL 11.2-15.7 HEMATOCRIT (BEAKER) (test udku=738) 32.2 % 34.1-44.9 MEAN CORPUSCULAR VOLUME (BEAKER) (test uukm=004) 80.9 fL 79.4-94.8 MEAN CORPUSCULAR HEMOGLOBIN (BEAKER) (test wljr=572) 24.1 pg 25.6-32.2 MEAN CORPUSCULAR HEMOGLOBIN CONC (BEAKER) (test rniq=436) 29.8 GM/DL 32.2-35.5 RED CELL DISTRIBUTION WIDTH (BEAKER) (test pjga=972) 16.7 % 11.7-14.4 PLATELET COUNT (BEAKER) (test kdcz=649) 525 K/CU MM 150-450 MEAN PLATELET VOLUME (BEAKER) (test xdtu=414) 10.1 fL 9.4-12.3 NUCLEATED RED BLOOD CELLS (BEAKER) (test epsq=959) 0 /100 WBC 0-0 BLOOD GAS, [id number] 20:24:00* Test Item Value Reference Range Comments PH ARTERIAL (BEAKER) (test kbqd=917) 7.25 7.35-7.45 PCO2 ARTERIAL (BEAKER) (test rsiz=344) 53 mmHg 35-45 PO2 ARTERIAL (BEAKER) (test yizt=201) 107 mmHg 80-90 O2 SATURATION ARTERIAL (BEAKER) (test hotr=959) 96.9 % 96.0-97.0 HCO3 ARTERIAL (BEAKER) (test hfrk=416) 22 mmol/L 21-29 BASE EXCESS ARTERIAL (BEAKER) (test orjc=183) -5.0 mmol/L -2.0-3.0 PATIENT TEMPERATURE (BEAKER) (test weyg=1734) 37.5 C FIO2 (BEAKER) (test cpjt=0359) 80.0 % POCT-GLUCOSE [id number] 19:01:00* Test Item Value Reference Range Comments POC-GLUCOSE METER (BEAKER) (test fbos=8834) 136 mg/dL 70-110 TESTED AT [facility] [address] [facility] [address] CALCIUM, [id number] 17:11:00* Test Item Value Reference Range Comments CALCIUM IONIZED (BEAKER) (test ysee=178) 1.40 mmol/L 1.12-1.27 PH, BLOOD (BEAKER) (test rpnz=0107) 7.31 BLOOD GAS, [id number] 17:11:00* Test Item Value Reference Range Comments PH ARTERIAL (BEAKER) (test jbmp=506) 7.31 7.35-7.45 PCO2 ARTERIAL (BEAKER) (test dlui=700) 44 mmHg 35-45 PO2 ARTERIAL (BEAKER) (test cqhy=688) 97 mmHg 80-90 O2 SATURATION ARTERIAL (BEAKER) (test lums=429) 96.8 % 96.0-97.0 HCO3 ARTERIAL (BEAKER) (test hstm=346) 22 mmol/L 21-29 BASE EXCESS ARTERIAL (BEAKER) (test kwsb=689) -4.2 mmol/L -2.0-3.0 PATIENT TEMPERATURE (BEAKER) (test oxan=3595) 37.0 C SODIUM NA-STAT [id number] 17:11:00* Test Item Value Reference Range Comments SODIUM (BEAKER) (test yuiv=577) 134 meq/L 135-148 GLUCOSE-STAT [id number] 17:11:00* Test Item Value Reference Range Comments GLUCOSE RANDOM (BEAKER) (test sfvs=215) 159 mg/dL 70-110 HGB/HCT (H&H) - STAT [id number] 17:11:00* Test Item Value Reference Range Comments HEMOGLOBIN (BEAKER) (test djpw=408) 9.2 g/dL 12.0-15.0 HEMATOCRIT (BEAKER) (test nfzn=075) 27.0 % 36.0-45.0 POTASSIUM-STAT [id number] 17:10:00* Test Item Value Reference Range Comments POTASSIUM (JOSE CRUZ) (test zcku=054) 4.3 meq/L 3.6-5.5 CT, [id number] 15:33:00PO/NGT contrast and Rectal contrast, along with IV contrast pleaseFINAL REPORT TECHNIQUE: CT of the abdomen and pelvis WITH intravenous contrast and WITH oral and rectal contrast. Dose modulation, iterative reconstruction, and/or weight-based adjustment of the mA/kV was utilized to reduce the radiation dose to as low as reasonably achievable. INDICATION: Evaluate for bowel perforation and/or abscess. COMPARISON: None. FINDINGS: LOWER THORAX: Small bilateral pleural effusions. The lung parenchyma is hypoenhancing. HEPATOBILIARY: The liver is enlarged. No focal hepatic lesions. The gallbladder is distended, possibly due to fasting. No biliary ductal dilatation. Periportal edema.SPLEEN: 13.6 cm splenomegaly. Questionable linear hypodensity through the superior spleen.PANCREAS: No focal masses or ductal dilatation. ADRENALS: No adrenal nodules.KIDNEYS/URETERS: No hydronephrosis, stones, or masses. The left kidney is atrophic.PELVIC ORGANS/BLADDER: Lyle catheter in the bladder. The uterus is enlarged and diffusely infiltrated by tumor. Tumor extends outside of the uterus and measures up to 8.3 x 12.5 x 11.2 cm. This appears to invade both adnexa, the sigmoid colon (in two separate locations), and the cervix. This is also inseparable from a loop of small bowel in the left lower quadrant as seen on axial image 75, although it does not appear to directly invade the small bowel. PERITON EUM/RETROPERITONEUM: There is a small amount of blood around the spleen and exte nding down the left paracolic gutter. There is intermixed air, contrast, and flu id extending from the sigmoid colon, up the right paracolic gutter, and into the perihepatic space. This is consistent with a bowel perforation. A drainage cath eter enters the right lower quadrant and surrounds a portion of the fluid in the right hemiabdomen. LYMPH NODES: A right common iliac lymph node measures 1 cm in short axis dimension. VESSELS: Unremarkable. GI TRACT: The sigmoid colon is in vaded by the uterine mass in two separate locations. There is transition of cont rast from the sigmoid colon into the right adnexum is seen on axial image 69. SIMI DONOVAN AND SOFT TISSUES: Unremarkable. IMPRESSION: 1.The findings are consistent w ith a sigmoid colonic leak with fluid which extends up the right paracolic gutte r and into the perihepatic space. 2.A tumor invades throughout the uterus, into the cervix, both adnexa, and into the sigmoid colon. In addition, this tumor is inseparable from a loop of small bowel in the left lower quadrant. 3.A right com mon iliac lymph node measures 1 cm in short axis dimension and could be a metast atic lymph node. 4.There is a small amount of hemorrhage adjacent to the spleen with a questionable splenic laceration along the superior margin. 5.There are sm all bilateral pleural effusions with bibasilar lung collapse. The hypoenhancemen t the lungs is concerning for pneumonia. 6.Hepatosplenomegaly. Findings were dis cussed with Dr. Mancera on 08/22/2018 at 3:14 PM. Signed: Javier Carrion [facility] ed Date/Time: 08/22/2018 15:33:24 Reading Location: [facility] B1 C013Y CT Body Readin g Room [id number] 14:46:00* Test Item Value Reference Range Comments PHOSPHORUS (BEAKER) (test nvgj=768) 2.5 mg/dL 2.3-4.7 [id number] 14:46:00* Test Item Value Reference Range Comments MAGNESIUM (BEAKER) (test lngp=291) 1.8 mg/dL 1.6-2.6 BASIC METABOLIC [id number] 14:46:00* Test Item Value Reference Range Comments SODIUM (BEAKER) (test smai=261) 139 meq/L 136-145 POTASSIUM (BEAKER) (test wgpq=861) 4.7 meq/L 3.5-5.1 CHLORIDE (BEAKER) (test kmze=346) 111 meq/L 98-107 CO2 (BEAKER) (test hcev=601) 22 meq/L 22-29 BLOOD UREA NITROGEN (BEAKER) (test rhmi=620) 15 mg/dL 7-21 CREATININE (BEAKER) (test wqwe=785) 0.69 mg/dL 0.57-1.25 GLUCOSE RANDOM (BEAKER) (test curl=350) 148 mg/dL 70-105 CALCIUM (BEAKER) (test jyuy=822) 11.0 mg/dL 8.4-10.2 EGFR (BEAKER) (test rnnx=9952) 87 mL/min/1.73 sq m ESTIMATED GFR IS NOT ACCURATE CREATININE CLEARANCE IN PREDICTING GLOMERULAR FILTRATION RATE. ESTIMATED GFR IS NOT APPLICABLE FOR DIALYSIS PATIENTS. CBC W/PLT COUNT & AUTO [id number] 14:36:00* Test Item Value Reference Range Comments WHITE BLOOD CELL COUNT (BEAKER) (test yicz=922) 18.5 K/ L 3.5-10.5 RED BLOOD CELL COUNT (BEAKER) (test krtf=919) 3.37 M/ L 3.93-5.22 HEMOGLOBIN (BEAKER) (test uidz=589) 8.1 GM/DL 11.2-15.7 HEMATOCRIT (BEAKER) (test ablc=837) 27.2 % 34.1-44.9 MEAN CORPUSCULAR VOLUME (BEAKER) (test immz=461) 80.7 fL 79.4-94.8 MEAN CORPUSCULAR HEMOGLOBIN (BEAKER) (test nhqx=704) 24.0 pg 25.6-32.2 MEAN CORPUSCULAR HEMOGLOBIN CONC (BEAKER) (test kzfw=784) 29.8 GM/DL 32.2-35.5 RED CELL DISTRIBUTION WIDTH (BEAKER) (test sysr=423) 16.5 % 11.7-14.4 PLATELET COUNT (BEAKER) (test ausw=181) 489 K/CU MM 150-450 MEAN PLATELET VOLUME (BEAKER) (test jpun=408) 10.4 fL 9.4-12.3 NUCLEATED RED BLOOD CELLS (BEAKER) (test nvtq=923) 0 /100 WBC 0-0 (CELLAVISION MANUAL DIFF)2018-08-22 14:36:00* Test Item Value Reference Range Comments NEUTROPHILS - REL (CELLAVISION)(BEAKER) (test oivo=8911) 68 % LYMPHOCYTES - REL (CELLAVISION)(BEAKER) (test jfyd=3460) 6 % MONOCYTES - REL (CELLAVISION)(BEAKER) (test aviw=3758) 1 % METAMYELOCYTES - REL (CELLAVISION)(BEAKER) (test jdrl=9998) 1 % 0-0 BANDS - REL (CELLAVISION)(BEAKER) (test cnfp=7703) 22 % 0-10 ATYPICAL LYMPHOCYTES - REL (CELLAVISION)(BEAKER) (test ovly=0438) 2 % 0-0 NEUTROPHILS - ABS (CELLAVISION)(BEAKER) (test exjx=7472) 12.58 K/ul 1.56-6.13 LYMPHOCYTES - ABS (CELLAVISION)(BEAKER) (test pwyl=8709) 1.11 K/ul 1.18-3.74 MONOCYTES - ABS (CELLAVISION)(BEAKER) (test smel=5214) 0.19 K/uL 0.24-0.36 METAMYELOCYTES - ABS (CELLAVISION)(BEAKER) (test uchk=6010) 0.19 K/uL 0.00-0.00 BANDS - ABS (CELLAVISION)(BEAKER) (test qqvu=6659) 4.07 K/uL 0.00-0.80 ATYPICAL LYMPHOCYTES - ABS (CELLAVISION)(BEAKER) (test fqgb=8925) 0.37 K/uL 0.00-0.00 TOTAL COUNTED (BEAKER) (test vfea=1619) 100 MANUAL NRBC PER 100 CELLS (BEAKER) (test ptud=7303) 1 /100 WBC 0-0 WBC MORPHOLOGY (BEAKER) (test nvnc=159) Normal GIANT PLATELETS (BEAKER) (test duam=119) Present ANISOCYTOSIS (BEAKER) (test bysk=213) 1+ few MICROCYTES (BEAKER) (test nuey=124) 1+ few ARTIFACT (CELLAVISION)(BEAKER) (test izzf=4984) Present PLATELET CONCENTRATION (CELLAVISION)(BEAKER) (test wtzd=3419) Increased Received comment: User comments: Slide comments: POCT-GLUCOSE [id number] 14:16:00* Test Item Value Reference Range Comments POC-GLUCOSE METER (BEAKER) (test gxnm=3823) 156 mg/dL 70-110 TESTED AT [facility] [address] [facility] [address] BLOOD GAS, [id number] 14:14:00* Test Item Value Reference Range Comments PH ARTERIAL (BEAKER) (test sdfl=255) 7.35 7.35-7.45 PCO2 ARTERIAL (BEAKER) (test grxw=683) 40 mmHg 35-45 PO2 ARTERIAL (BEAKER) (test laoa=029) 95 mmHg 80-90 O2 SATURATION ARTERIAL (BEAKER) (test yxxh=919) 96.8 % 96.0-97.0 HCO3 ARTERIAL (BEAKER) (test evwx=027) 21 mmol/L 21-29 BASE EXCESS ARTERIAL (BEAKER) (test behw=651) -3.8 mmol/L -2.0-3.0 PATIENT TEMPERATURE (BEAKER) (test rgwt=4696) 37.3 C FIO2 (BEAKER) (test iydw=2750) 60.0 % POCT-GLUCOSE [id number] 13:15:00* Test Item Value Reference Range Comments POC-GLUCOSE METER (BEAKER) (test jwvc=3919) 186 mg/dL 70-110 TESTED AT [facility] [address] [facility] [address] URINALYSIS W/ REFLEX URINE [id number] 12:47:00* Test Item Value Reference Range Comments COLOR (BEAKER) (test bslj=567) Yellow CLARITY (BEAKER) (test geyl=269) Hazy SPECIFIC GRAVITY UA (BEAKER) (test vhek=490) 1.025 1.001-1.035 PH UA (BEAKER) (test ieyb=590) 5.5 5.0-8.0 PROTEIN UA (BEAKER) (test zubj=602) 70 mg/dL Negative GLUCOSE UA (BEAKER) (test bkdl=107) Negative Negative KETONES UA (BEAKER) (test xido=349) 10 mg/dL Negative BILIRUBIN UA (BEAKER) (test djfs=792) Negative Negative BLOOD UA (BEAKER) (test kewd=017) Trace Negative NITRITE UA (BEAKER) (test tbsm=018) Negative Negative LEUKOCYTE ESTERASE UA (BEAKER) (test oemb=124) Negative Negative UROBILINOGEN UA (BEAKER) (test ynzy=528) 0.2 mg/dL 0.2-1.0 RBC UA (BEAKER) (test mmmp=314) 3 /HPF WBC UA (BEAKER) (test azcu=290) 9 /HPF MUCUS (BEAKER) (test tzdb=2966) Rare SQUAMOUS EPITHELIAL (BEAKER) (test zbxw=044) 3 /HPF GRANULAR CASTS (BEAKER) (test ssja=674) 21 /LPF AMORPHOUS CRYSTALS (BEAKER) (test xzrv=6813) Moderate SOURCE(BEAKER) (test comp=9543) RAD, ABDOMEN/KUB, 1 VIEW [id number] 10:52:00Reason for exam:->ngt placement FINAL REPORT Abdomen dated 08/22/2018 Comment:Abdomen was examined in the supine frontal position. Air is seen in the small and large poppy l without dilatation to suggest mechanical obstruction or ileus. No mass, path ological calcification, or free air is present. Impression: No mechanical obstru ction or ileus. Signed: Yoselyn Mckenna Verified Date/Time: 08/22/2018 10: 52:16 Reading Location: [facility] Radiology Reading Room -GLUCOSE METER 2018-08-22 10:48:00* Test Item Value Reference Range Comments POC-GLUCOSE METER (BEAKER) (test tdgr=4196) 164 mg/dL 70-110 TESTED AT [facility] [address] [facility] [address] RAD, CHEST, 1 VIEW, NON [id number] 10:45:00Post-intubationReason for exam:-> post intubationShould this be performed at the bedside?->YesFINAL REPORT Chest dated 08/22/2018 COMPARISON: Same day Clinical Information: post intubation Comment: Since prior examination, there is interval placement of a endotracheal tube. Left PICC line remains in place. Heart is normal in size. Pulmonary vasculature is indistinct. Interstitial disease is seen bilaterally suggestive of vascular congestion. There is trace bilateral pleural effusion. Signed: Yoselyn Mckenna Verified Date/Time: 08/22/2018 10:45:13 Reading Location: [facility] Radiology Reading Room D GAS, [id number] 08:31:00 * Test Item Value Reference Range Comments PH ARTERIAL (BEAKER) (test efwy=469) 7.29 7.35-7.45 PCO2 ARTERIAL (BEAKER) (test npha=184) 46 mmHg 35-45 PO2 ARTERIAL (BEAKER) (test quef=812) 85 mmHg 80-90 O2 SATURATION ARTERIAL (BEAKER) (test njyt=910) 95.0 % 96.0-97.0 HCO3 ARTERIAL (BEAKER) (test rfff=362) 21 mmol/L 21-29 BASE EXCESS ARTERIAL (BEAKER) (test zmhm=122) -4.9 mmol/L -2.0-3.0 PATIENT TEMPERATURE (BEAKER) (test bnke=8070) 37.5 C FIO2 (BEAKER) (test wenr=9767) 60.0 % RAD, CHEST, 1 VIEW, NON [id number] 04:29:00Post-intubationReason for exam:-> respiratory failure/ pulm edema/ PICC line placementShould this be performed at the bedside?->YesFINAL REPORT Chest one view. Clinical history: respiratory failure/ pulm edema/ PICC line placement Comparison: None. Technique: A single frontal view of the chest was obtained. Findings:There is a left PICC line with tip in the proximal right atrium.The cardiac silhouette is top normal in size which may be due to technique. There are small bilateral pleural effusions with associated compressive atelectasis; superimposed pneumonia cannot be excluded. There is no pulmonary edema or pneumothorax. There is gaseous distention of the stomach. Signed: Nita Pineda MDReport Verified Date/Time: 08/22/2018 04:29:32 Reading Location: [facility] C[facility] CT Body Reading Room IC ACID, VENOUS, WHOLE [id number] 03:29:00* Test Item Value Reference Range Comments LACTATE BLOOD VENOUS (2) (BEAKER) (test sjnn=6155) 0.8 mmol/L 0.5-2.2 BLOOD GAS, [id number] 03:28:00* Test Item Value Reference Range Comments PH ARTERIAL (BEAKER) (test cfup=976) 7.29 7.35-7.45 PCO2 ARTERIAL (BEAKER) (test xiwm=334) 48 mmHg 35-45 PO2 ARTERIAL (BEAKER) (test cdbe=403) 168 mmHg 80-90 O2 SATURATION ARTERIAL (BEAKER) (test asvu=146) 98.9 % 96.0-97.0 HCO3 ARTERIAL (BEAKER) (test vwcu=701) 22 mmol/L 21-29 BASE EXCESS ARTERIAL (BEAKER) (test grwp=249) -4.0 mmol/L -2.0-3.0 PATIENT TEMPERATURE (BEAKER) (test fkej=2383) 37.0 C FIO2 (BEAKER) (test qlhu=3255) 75.0 % [id number] 03:14:00* Test Item Value Reference Range Comments PHOSPHORUS (BEAKER) (test zrlz=744) 2.8 mg/dL 2.3-4.7 [id number] 03:14:00* Test Item Value Reference Range Comments MAGNESIUM (BEAKER) (test aeiz=065) 1.8 mg/dL 1.6-2.6 COMPREHENSIVE METABOLIC [id number] 03:14:00* Test Item Value Reference Range Comments TOTAL PROTEIN (BEAKER) (test mlpm=666) 5.9 gm/dL 6.0-8.3 ALBUMIN (BEAKER) (test isxa=5055) 3.8 g/dL 3.5-5.0 ALKALINE PHOSPHATASE (BEAKER) (test hued=305) 43 U/L 40-150 BILIRUBIN TOTAL (BEAKER) (test ymfk=591) 0.5 mg/dL 0.2-1.2 SODIUM (BEAKER) (test qxln=320) 141 meq/L 136-145 POTASSIUM (BEAKER) (test pqen=170) 4.7 meq/L 3.5-5.1 CHLORIDE (BEAKER) (test lraj=332) 113 meq/L 98-107 CO2 (BEAKER) (test ewug=587) 20 meq/L 22-29 BLOOD UREA NITROGEN (BEAKER) (test hwgt=890) 12 mg/dL 7-21 CREATININE (BEAKER) (test ujld=342) 0.68 mg/dL 0.57-1.25 GLUCOSE RANDOM (BEAKER) (test seas=172) 146 mg/dL 70-105 CALCIUM (BEAKER) (test cotv=740) 11.0 mg/dL 8.4-10.2 AST (SGOT) (BEAKER) (test dafh=533) 25 U/L 5-34 ALT (SGPT) (BEAKER) (test anoh=975) 10 U/L 6-55 EGFR (BEAKER) (test munm=0670) 89 mL/min/1.73 sq m ESTIMATED GFR IS NOT ACCURATE CREATININE CLEARANCE IN PREDICTING GLOMERULAR FILTRATION RATE. ESTIMATED GFR IS NOT APPLICABLE FOR DIALYSIS PATIENTS. PT/[id number] 03:04:00* Test Item Value Reference Range Comments PROTIME (BEAKER) (test emrw=856) 19.1 seconds 11.7-14.7 INR (BEAKER) (test szet=130) 1.6 <=5.9 PARTIAL THROMBOPLASTIN TIME (BEAKER) (test feiv=420) 56.4 seconds 22.5-36.0 RECOMMENDED COUMADIN/WARFARIN INR THERAPY RANGESSTANDARD DOSE: 2.0 - 3.0 Inclu hola: PROPHYLAXIS for venous thrombosis, systemic embolization; TREATMENT for rodrigo ous thrombosis and/or pulmonary embolus.HIGH RISK: Target INR is 2.5-3.5 for pat ients with mechanical heart valves.CBC W/PLT COUNT & AUTO [id number] 03:03:00* Test Item Value Reference Range Comments WHITE BLOOD CELL COUNT (BEAKER) (test oknc=318) 15.5 K/ L 3.5-10.5 RED BLOOD CELL COUNT (BEAKER) (test ekad=316) 3.31 M/ L 3.93-5.22 HEMOGLOBIN (BEAKER) (test ouej=051) 7.9 GM/DL 11.2-15.7 HEMATOCRIT (BEAKER) (test pafs=642) 27.2 % 34.1-44.9 MEAN CORPUSCULAR VOLUME (BEAKER) (test edux=776) 82.2 fL 79.4-94.8 MEAN CORPUSCULAR HEMOGLOBIN (BEAKER) (test unyw=440) 23.9 pg 25.6-32.2 MEAN CORPUSCULAR HEMOGLOBIN CONC (BEAKER) (test ldff=426) 29.0 GM/DL 32.2-35.5 RED CELL DISTRIBUTION WIDTH (BEAKER) (test jmqb=044) 16.3 % 11.7-14.4 PLATELET COUNT (BEAKER) (test wdtx=393) 385 K/CU MM 150-450 MEAN PLATELET VOLUME (BEAKER) (test kvyt=641) 10.2 fL 9.4-12.3 NUCLEATED RED BLOOD CELLS (BEAKER) (test uazt=508) 0 /100 WBC 0-0 NEUTROPHILS RELATIVE PERCENT (BEAKER) (test wchl=527) 92 % LYMPHOCYTES RELATIVE PERCENT (BEAKER) (test frsf=947) 4 % MONOCYTES RELATIVE PERCENT (BEAKER) (test yppx=237) 3 % EOSINOPHILS RELATIVE PERCENT (BEAKER) (test dngf=665) 0 % BASOPHILS RELATIVE PERCENT (BEAKER) (test yppj=347) 0 % NEUTROPHILS ABSOLUTE COUNT (BEAKER) (test qhkd=201) 14.33 K/ L 1.56-6.13 LYMPHOCYTES ABSOLUTE COUNT (BEAKER) (test vtuz=647) 0.57 K/ L 1.18-3.74 MONOCYTES ABSOLUTE COUNT (BEAKER) (test kbbg=626) 0.49 K/ L 0.24-0.36 EOSINOPHILS ABSOLUTE COUNT (BEAKER) (test zpsr=538) 0.02 K/ L 0.04-0.36 BASOPHILS ABSOLUTE COUNT (BEAKER) (test ocxj=119) 0.02 K/ L 0.01-0.08 IMMATURE GRANULOCYTES-RELATIVE PERCENT (BEAKER) (test ctcv=7716) 1 % 0-1 - XR ABDOMEN 1 [id number] 23:09:00 Patient Name: RAHUL GRIFFIN Unit No: [id number] EXAMS: CPT CODE: [id number] XR ABDOMEN 1 V [id number] Clinical Indication: Abdominal distention. Abdominal pain. Comparison: 08/21/2018, 0854 hours. FINDINGS: The AP supine view of the abdomen shows mild distention of the stomach with air. Midline surgical clips in the pelvis. A drain projected to the pelvis, stable in position since prior study. Bowel gas pattern otherwise nonspecific. Mild atelectasis in the left lung base.. There is no abnormal dilatation of bowel loops. There is no pneumatosis or mass effect. There are no radiopaque densities noted. There are no acute osseous abnormalities noted. IMPRESSION: 1. Nonspecific bowel gas. Stomach mildly distended with air. Follow-up as clinically indicated. 2. Mild atelectasis left lung base.. SL: CHIKIS at 2309 Reported and signed by: Cayetano Art M.D. CC: Zee Singh MD; Nicole Roper MD Technologist: Kathryn Patterson, RT Trnscrbd D/ (0822) [email or web address] Orig Print D/T: S: 08/21/2018 (6051) [facility] NAME: RAHUL GRIFFIN Radiology Department PHYS: Nicole Yen MD [address] : 1960 AGE: 57 SEX: F [place], [place] [address] LOC: HENOK Hickey PHONE #: [phone] EXAM DATE: 08/21/2018 STATUS: ADM IN FAX #: [phone] RAD NO: Page 1 Signed Report - XR CHEST 1 [id number] 22:50:00 Patient Name: RAHUL GRIFFIN Unit No: [id number] EXAMS: CPT CODE: [id number] XR CHEST 1 V 51901 SINGLE VIEW RADIOGRAPH CHEST INDICATION: PICC PLACEMENT. TECHNIQUE: A single view frontal radi ograph of the chest was obtained. COMPARISONS: Chest x-ray 08/21/2018 SHIKHA DINGS: There is no acute osseous fracture or dislocation. There is no subdi aphragmatic free gas. There is stable cardiomegaly. There is no mediastinal mass. There is a new left PICC line with tip at the cavoatrial junction. There is stable perihilar vascular congestion. There is mild interstitial dari ing prominence that is stable. There is a stable small left pleural effusion. There is stable bibasilar pulmonary atelectasis versus infiltrate, left greater than right. There is no pneumothorax. IMPRESSION: 1. New left PICC line with tip at the cavoatrial junction in normal position. 2. Sta ble cardiomegaly and mild interstitial pulmonary edema. 3. Stable small left pleural effusion. Stable bibasilar atelectasis or infiltrate. E lectronically Signed by Anthony Layton DO on 08/21/2018 at 2250 Reported and signed by: Anthony Layton DO CC: Zee Childress MD Technologist: Kathryn Patterson, RT Trnscrbd D/ (751) [id number] Orig Print D/T: S: 08/21/2018 (9288) [facility] NAME: RAHUL GRIFFIN Radiology Department PHYS: Jamari Akbar [address] : 1960 AGE: 57 SEX: F [place], [place] [address] LOC: HENOK Hickey PHONE #: EXAM DATE: 08/21/2018 STATUS: ADM IN FAX #: [phone] RAD NO: Page 1 Signed Report LACTIC [id number] 18:49:00* Test Item Value Reference Range Comments LACTIC ACID (test code=LACT) 1.2 MMOL/L 0.5-2.2 GLYCOSYLATED HEMOGLOBIN (HA1C)2018-08-21 17:34:00* Test Item Value Reference Range Comments GLYCOSYLATED HEMOGLOBIN (HA1C) (test code=GLYHGB) 7.5 % 4.8-5.9 Any condition that shortens erythocyte survival or decreasesmean erythrocyte age (e.g., recovery from acute blood loss,hemolytic anemia) will falsely lower HGBA1c resultsregardless of the method used. HGBA1c results from patientswith HbSS, HbCC, and HbSc must be interpreted with cautiongiven the pathological processes, including anemia,increased red cell turnover, transfusion requirements, thatadve rsely impact HGBA1c as a marker of long-term glycemiccontrol. Alternative forms of testing such as fructosamineshould be considered for these patients. GLYCOSYLATED HEMOGLOBIN [id number] 17:33:00* Test Item Value Reference Range Comments GLYCOSYLATED HEMOGLOBIN (HA1C) (test code=GLYHGB) 7.5 % 4.8-5.9 Any condition that shortens erythocyte survival or decreasesmean erythrocyte age (e.g., recovery from acute blood loss,hemolytic anemia) will falsely lower HGBA1c resultsregardless of the method used. HGBA1c results from patientswith HbSS, HbCC, and HbSc must be interpreted with cautiongiven the pathological processes, including anemia,increased red cell turnover, transfusion requirements, thatadve rsely impact HGBA1c as a marker of long-term glycemiccontrol. Alternative forms of testing such as fructosamineshould be considered for these patients. MEAN BLOOD GLUCOSE (test code=MBG) 169 MG/DL 70-110 [id number] 17:20:00* Test Item Value Reference Range Comments GLUBED (test code=GLUBED) 153 mg/dL 65-110 COMPREHENSIVE METABOLIC [id number] 15:01:00* Test Item Value Reference Range Comments SODIUM (test code=NA) 137 mEq/L 135-145 POTASSIUM (test code=K) 4.8 mEq/L 3.5-5.0 CHLORIDE (test code=CL) 105 mEq/L 100-115 CARBON DIOXIDE (test code=CO2) 23 mEq/L 22-31 ANION GAP (test code=GAP) 14.20 10-20 GLUCOSE (test code=GLU) 158 mg/dL 65-110 BLOOD UREA NITROGEN (test code=BUN) 16 mg/dL 7-18 GLOMERULAR FILTRATION RATE (test code=GFR) 86 ml/min >60 CREATININE (test code=CREAT) 0.7 mg/dL 0.5-1.0 TOTAL PROTEIN (test code=PROT) 5.5 gm/dL 6.3-8.2 ALBUMIN (test code=ALB) 2.1 gm/dL 3.4-4.8 CALCIUM (test code=CA) 9.5 mg/dL 8.4-10.2 BILIRUBIN TOTAL (test code=BILT) 0.5 mg/dL 0.2-1.0 SGOT/AST (test code=AST) 15 units/L 15-37 SGPT/ALT (test code=ALT) 6 units/L 12-78 ALKALINE PHOSPHATASE TOTAL (test code=ALKP) 60 units/L 46-116 PROCALCITONIN (PCT)2018-08-21 15:01:00* Test Item Value Reference Range Comments PROCALCITONIN (PCT) (test code=PROCAL) 21.12 ng/mL 0.00-0.05 RESULTS CALLED TO VONNIE.READ BACK & CONFIRMED? [facility] [place]04.PROCALCITONIN (PCT) NORMAL RANGE (ADULT):<0.05 NG/ML.RISK ASSESSMENT:PCT < 0.5 ng/mL represents a low risk of severe sepsis and/or septic shock.PCT > 2 ng/mL represents a high risk of severe sepsisand/or septic shock.CAUTION: Concentrations < 0.5 ng/mL do not exclude an infection.Use PCT results in conjunction with the patient's otherfindings. CBC W/AUTO [id number] 13:24:00* Test Item Value Reference Range Comments WHITE BLOOD CELL (test code=WBC) 15.8 K/mm3 6.6-12.1 RED BLOOD CELL (test code=RBC) 3.68 M/mm3 3.45-5.01 HEMOGLOBIN (test code=HGB) 8.7 g/dL 10.7-13.9 HEMATOCRIT (test code=HCT) 30.1 % 32.1-42.1 MEAN CELL VOLUME (test code=MCV) 82 fL 84.1-94.8 MEAN CELL HGB (test code=MCH) 23.6 pg 27-35 MEAN CELL HGB CONCETRATION (test code=MCHC) 28.9 gm/dL 32.2-34.1 RED CELL DISTRIBUTION WIDTH (test code=RDW) 16.1 % 12.4-16.5 PLATELET COUNT (test code=PLT) 385 K/mm3 133-385 IMMATURE PLATELET FRACTION (test code=IPF) 0.0 % 0.0-10.8 MEAN PLATELET VOLUME (test code=MPV) 10.3 fl 9.1-12.7 MANUAL DIFF REQUIRED (test code=MDIFF) YES RBC MORPHOLOGY REQUIRED (test code=RBCM) NORMAL NORMAL PLATELET MORPHOLOGY REQUIRED (test code=PLTMR) ABNORMAL NORMAL WBC [id number] 13:24:00* Test Item Value Reference Range Comments TOTAL CELLS COUNTED (test code=TCC) 100 #CELLS SEGMENTED NEUTROPHILS (test code=SEG) 86 % 56.5-79.4 BAND NEUTROPHIL (test code=BAND) 6 % 0-5 LYMPHOCYTE (test code=LYMPH) 4 % 20-40 MONOCYTE (test code=MON) 3 % 0-8 METAMYELOCYTE (test code=META) 1 % >0 HYPOCHROMIA (test code=HYPO) 1+ ANISOCYTOSIS (test code=ANISO) 1+ PLATELET ESTIMATE (test code=PLTEST) ADEQUATE ADEQ PLATELET MORPHOLOGY (test code=PLTMORPH) LARGE PLATELETS NORMAL LACTIC [id number] 13:23:00* Test Item Value Reference Range Comments LACTIC ACID (test code=LACT) 0.9 MMOL/L 0.5-2.2 COMPREHENSIVE METABOLIC [id number] 13:20:00* Test Item Value Reference Range Comments SODIUM (test code=NA) 137 mEq/L 135-145 POTASSIUM (test code=K) 4.8 mEq/L 3.5-5.0 CHLORIDE (test code=CL) 105 mEq/L 100-115 CARBON DIOXIDE (test code=CO2) 23 mEq/L 22-31 ANION GAP (test code=GAP) 14.20 10-20 GLUCOSE (test code=GLU) 158 mg/dL 65-110 BLOOD UREA NITROGEN (test code=BUN) 16 mg/dL 7-18 GLOMERULAR FILTRATION RATE (test code=GFR) 86 ml/min >60 CREATININE (test code=CREAT) 0.7 mg/dL 0.5-1.0 TOTAL PROTEIN (test code=PROT) 5.5 gm/dL 6.3-8.2 ALBUMIN (test code=ALB) 2.1 gm/dL 3.4-4.8 CALCIUM (test code=CA) 9.5 mg/dL 8.4-10.2 BILIRUBIN TOTAL (test code=BILT) 0.5 mg/dL 0.2-1.0 SGOT/AST (test code=AST) 15 units/L 15-37 SGPT/ALT (test code=ALT) 6 units/L 12-78 ALKALINE PHOSPHATASE TOTAL (test code=ALKP) 60 units/L 46-116 PROCALCITONIN (PCT)2018-08-21 13:20:00* Test Item Value Reference Range Comments PROCALCITONIN (PCT) (test code=PROCAL) ng/mL 0.00-0.05 PROTHROMBIN [id number] 13:14:00* Test Item Value Reference Range Comments PROTHROMBIN TIME PATIENT (test code=PTP) 14.6 secs 9.1-12.4 THROMBOPLASTIN TIME [id number] 13:14:00* Test Item Value Reference Range Comments THROMBOPLASTIN TIME PARTIAL (test code=PTT) 33.7 secs 22-38 CBC W/AUTO [id number] 13:07:00* Test Item Value Reference Range Comments WHITE BLOOD CELL (test code=WBC) 15.8 K/mm3 6.6-12.1 RED BLOOD CELL (test code=RBC) 3.68 M/mm3 3.45-5.01 HEMOGLOBIN (test code=HGB) 8.7 g/dL 10.7-13.9 HEMATOCRIT (test code=HCT) 30.1 % 32.1-42.1 MEAN CELL VOLUME (test code=MCV) 82 fL 84.1-94.8 MEAN CELL HGB (test code=MCH) 23.6 pg 27-35 MEAN CELL HGB CONCETRATION (test code=MCHC) 28.9 gm/dL 32.2-34.1 RED CELL DISTRIBUTION WIDTH (test code=RDW) 16.1 % 12.4-16.5 PLATELET COUNT (test code=PLT) 385 K/mm3 133-385 IMMATURE PLATELET FRACTION (test code=IPF) 0.0 % 0.0-10.8 MEAN PLATELET VOLUME (test code=MPV) 10.3 fl 9.1-12.7 MANUAL DIFF REQUIRED (test code=MDIFF) YES RBC MORPHOLOGY REQUIRED (test code=RBCM) NORMAL PLATELET MORPHOLOGY REQUIRED (test code=PLTMR) NORMAL WBC [id number] 13:07:00* Test Item Value Reference Range Comments SEGMENTED NEUTROPHILS (test code=SEG) % 56.5-79.4 LYMPHOCYTE (test code=LYMPH) % 20-40 CBC W/AUTO [id number] 13:07:00* Test Item Value Reference Range Comments WHITE BLOOD CELL (test code=WBC) 15.8 K/mm3 6.6-12.1 RED BLOOD CELL (test code=RBC) 3.68 M/mm3 3.45-5.01 HEMOGLOBIN (test code=HGB) 8.7 g/dL 10.7-13.9 HEMATOCRIT (test code=HCT) 30.1 % 32.1-42.1 MEAN CELL VOLUME (test code=MCV) 82 fL 84.1-94.8 MEAN CELL HGB (test code=MCH) 23.6 pg 27-35 MEAN CELL HGB CONCETRATION (test code=MCHC) 28.9 gm/dL 32.2-34.1 RED CELL DISTRIBUTION WIDTH (test code=RDW) 16.1 % 12.4-16.5 PLATELET COUNT (test code=PLT) 385 K/mm3 133-385 IMMATURE PLATELET FRACTION (test code=IPF) 0.0 % 0.0-10.8 MEAN PLATELET VOLUME (test code=MPV) 10.3 fl 9.1-12.7 MANUAL DIFF REQUIRED (test code=MDIFF) YES RBC MORPHOLOGY REQUIRED (test code=RBCM) NORMAL PLATELET MORPHOLOGY REQUIRED (test code=PLTMR) NORMAL WBC [id number] 13:07:00* Test Item Value Reference Range Comments SEGMENTED NEUTROPHILS (test code=SEG) % 56.5-79.4 LYMPHOCYTE (test code=LYMPH) % 20-40 - DUP VEIN [id number] 10:41:00 Patient Name: RAHUL GRIFFIN Unit No: [id number] EXAMS: CPT CODE: [id number] [place] [address] EXAMINATION: Bilateral lower extremity venous Doppler 08/21/2018. CLINICAL HISTORY: Bilateral lower extremity swelling. Postoperative COMPARISON: None. FINDINGS: Sonographic evaluation of the bilateral lower extremities was performed with a linear transducer from the common femoral vein through the popliteal vein using grayscale, color Doppler, and spectral analysis. The examination demonstrates normal compressibility, flow, respiratory variation, and response to augmentation throughout. The visualized portions of the posterior tibial and peroneal veins in the calves also demonstrate compressibility and flow. Soft tissue edema is evident in the subcutaneous tissues of the bilateral lower extremities. IMPRESSION: 1. No sonographic evidence of deep venous thrombosis in either thigh or the visualized calf veins. 2. Soft tissue edema. at 1041 Reported and signed by: Glendy Schultz MD CC: Rajinder Singh MD; Richard Espinoza MD Technologist: Ama Zamorano RDMS Probe: Trnscrbd D/ (1041) Ram[facility] [place] Orig Print D/T: S: 08/21/2018 (1045) [facility] NAME: RAHUL GRIFFIN Radiology Department PHYS: Richard Delong MD [address] : 1960 AGE: 57 SEX: F [place], [place] [address] LOC: JD4 A PHONE #: [phone] EXAM DATE: 08/21/2018 STATUS: ADM IN FAX #: [phone] RAD NO: Page 1 Signed Report Patient Name: RAHUL GRIFFIN Unit No: [id number] EXAMS: CPT CODE: [id number] [place] [address] < Continued> [facility] NAME: RAHUL GRIFFIN Radiology Department PHYS: Richard Delong MD [address] : 1960 AGE: 57 SEX: F [place] [address] LOC: HENOK Hickey PHONE #: [phone] EXAM DATE: 08/21/2018 STATUS: ADM IN FAX #: [phone] RAD NO: Page 2 Signed Report - XR ABDOMEN 1 [id number] 09:08:00 Patient Name: RAHUL GRIFFIN Unit No: [id number] EXAMS: CPT CODE: [id number] XR ABDOMEN 1 V 04540 ABDOMEN KUB, 08/21/2018: COMPARISON: Chest x-ray dated August 21, 2018 CLINICAL HISTORY: ileus FINDINGS: AP view of the abdomen was obtained. Abdominal gas pattern is nonspecific with mild to moderate gaseous distention of bowel loops in the lower abdomen and upper pelvis. No obvious pathologic calcifications were seen overlying the kidneys. Surgical drain overlies the pelvis. Vertically oriented barb are superimposed over the pelvis. IMPRESSION: Nonspecific bowel gas pattern. Follow-up as clinically indicated. at 0908 Reported and signed by: Fili Call MD CC: Zee Singh MD; Richard Espinoza MD Technologist: Salma Wilder, RT; Dee Dee Jhaveri, RT, CT; ... Trnscrbd D/ (907) [id number] Orig Print D/T: S: 08/21/2018 (911) [facility] NAME: RAHUL GRIFFIN Radiology Department PHYS: Richard Delong MD [address] : 1960 AGE: 57 SEX: F [place] [address] LOC: HENOK Hickey PHONE #: [phone] EXAM DATE: 08/21/2018 STATUS: ADM IN FAX #: [phone] RAD NO: Page 1 Signed Report - XR CHEST 1 [id number] 08:46:00 Patient Name: RAHUL GRIFFIN Unit No: [id number] EXAMS: CPT CODE: [id number] XR CHEST 1 V 47465 EXAMINATION: Portable chest x-ray 08/21/2018 at 0830 hours. CLINICAL HISTORY: Sepsis, abdominal pain. COMPARISON: None. FINDINGS: A single AP portable radiograph of the chest is provided for interpretation. The cardiac silhouette is within normal limits. There is pulmonary venous congestion and there are bilateral pulmonary opacities most consistent with interstitial edema. Right basilar atelectasis is evident. There is retrocardiac opacity with elevation of the left hemidiaphragm. There is a small left pleural effusion. The visualized osseous structures are within normal limits. IMPRESSION: 1. Pulmonary opacities most consistent with interstitial edema. 2. Retrocardiac opacity may be secondary to atelectasis, asymmetric edema, or pneumonia. 3. Left pleural effusion. at 0846 Reported and signed by: Glendy Schultz MD CC: Zee Singh MD; Richard Espinoza MD Technologist: Salma Wilder, RT; Lillian Dotson RT Trnscrbd D/ (0846) ShereeC[facility] [place] Orig Print D/T: S: 08/21/2018 (0850) [facility] NAME: RAHUL GRIFFIN Radiology Department PHYS: Richard Delong MD [address] : 1960 AGE: 57 SEX: F [place], [place] [address] LOC: JD4 [place] PHONE #: [phone] EXAM DATE: 08/21/2018 STATUS: ADM IN FAX #: [phone] RAD NO: Page 1 Signed Report [id number] 06:39:00* Test Item Value Reference Range Comments GLUBED (test code=GLUBED) 136 mg/dL 65-110 CHEMISTRY 7 [id number] 05:52:00* Test Item Value Reference Range Comments SODIUM (test code=NA) 136 mEq/L 135-145 POTASSIUM (test code=K) 5.0 mEq/L 3.5-5.0 CHLORIDE (test code=CL) 106 mEq/L 100-115 CARBON DIOXIDE (test code=CO2) 23 mEq/L 22-31 ANION GAP (test code=GAP) 11.60 10-20 GLUCOSE (test code=GLU) 149 mg/dL 65-110 BLOOD UREA NITROGEN (test code=BUN) 15 mg/dL 7-18 GLOMERULAR FILTRATION RATE (test code=GFR) 86 ml/min >60 CREATININE (test code=CREAT) 0.7 mg/dL 0.5-1.0 CALCIUM (test code=CA) 9.5 mg/dL 8.4-10.2 CBC W/AUTO [id number] 04:24:00* Test Item Value Reference Range Comments WHITE BLOOD CELL (test code=WBC) 20.2 K/mm3 6.6-12.1 RESULTS CALLED TO JUANCARLOS HernandezREAD BACK & CONFIRMED? Y.BY F.LAB.HB 08/21/18 0404. RED BLOOD CELL (test code=RBC) 4.02 M/mm3 3.45-5.01 HEMOGLOBIN (test code=HGB) 9.6 g/dL 10.7-13.9 HEMATOCRIT (test code=HCT) 33.4 % 32.1-42.1 MEAN CELL VOLUME (test code=MCV) 83 fL 84.1-94.8 MEAN CELL HGB (test code=MCH) 23.9 pg 27-35 MEAN CELL HGB CONCETRATION (test code=MCHC) 28.7 gm/dL 32.2-34.1 RED CELL DISTRIBUTION WIDTH (test code=RDW) 16.0 % 12.4-16.5 PLATELET COUNT (test code=PLT) 420 K/mm3 133-385 IMMATURE PLATELET FRACTION (test code=IPF) 0.0 % 0.0-10.8 MEAN PLATELET VOLUME (test code=MPV) 10.3 fl 9.1-12.7 MANUAL DIFF REQUIRED (test code=MDIFF) YES RBC MORPHOLOGY REQUIRED (test code=RBCM) ABNORMAL NORMAL PLATELET MORPHOLOGY REQUIRED (test code=PLTMR) NORMAL NORMAL WBC [id number] 04:24:00* Test Item Value Reference Range Comments TOTAL CELLS COUNTED (test code=TCC) 100 #CELLS SEGMENTED NEUTROPHILS (test code=SEG) 77 % 56.5-79.4 BAND NEUTROPHIL (test code=BAND) 15 % 0-5 LYMPHOCYTE (test code=LYMPH) 3 % 20-40 MONOCYTE (test code=MON) 4 % 0-8 EOSINOPHIL (test code=EOS) 1 % 0-4 HYPOCHROMIA (test code=HYPO) 1+ PLATELET ESTIMATE (test code=PLTEST) ADEQUATE ADEQ PLATELET MORPHOLOGY (test code=PLTMORPH) NORMAL NORMAL CBC W/AUTO [id number] 04:06:00* Test Item Value Reference Range Comments WHITE BLOOD CELL (test code=WBC) 20.2 K/mm3 6.6-12.1 RESULTS CALLED TO JUANCARLOS HernandezREAD BACK & CONFIRMED? Y.BY F.LAB.HB 08/21/18 0404. RED BLOOD CELL (test code=RBC) 4.02 M/mm3 3.45-5.01 HEMOGLOBIN (test code=HGB) 9.6 g/dL 10.7-13.9 HEMATOCRIT (test code=HCT) 33.4 % 32.1-42.1 MEAN CELL VOLUME (test code=MCV) 83 fL 84.1-94.8 MEAN CELL HGB (test code=MCH) 23.9 pg 27-35 MEAN CELL HGB CONCETRATION (test code=MCHC) 28.7 gm/dL 32.2-34.1 RED CELL DISTRIBUTION WIDTH (test code=RDW) 16.0 % 12.4-16.5 PLATELET COUNT (test code=PLT) 420 K/mm3 133-385 IMMATURE PLATELET FRACTION (test code=IPF) 0.0 % 0.0-10.8 MEAN PLATELET VOLUME (test code=MPV) 10.3 fl 9.1-12.7 MANUAL DIFF REQUIRED (test code=MDIFF) YES RBC MORPHOLOGY REQUIRED (test code=RBCM) NORMAL PLATELET MORPHOLOGY REQUIRED (test code=PLTMR) NORMAL WBC [id number] 04:06:00* Test Item Value Reference Range Comments SEGMENTED NEUTROPHILS (test code=SEG) % 56.5-79.4 LYMPHOCYTE (test code=LYMPH) % 20-40 CBC W/AUTO [id number] 04:06:00* Test Item Value Reference Range Comments WHITE BLOOD CELL (test code=WBC) 20.2 K/mm3 6.6-12.1 RESULTS CALLED TO JUANCARLOS HernandezREAD BACK & CONFIRMED? Y.BY FHENRRY.HB 08/21/18 0404. RED BLOOD CELL (test code=RBC) 4.02 M/mm3 3.45-5.01 HEMOGLOBIN (test code=HGB) 9.6 g/dL 10.7-13.9 HEMATOCRIT (test code=HCT) 33.4 % 32.1-42.1 MEAN CELL VOLUME (test code=MCV) 83 fL 84.1-94.8 MEAN CELL HGB (test code=MCH) 23.9 pg 27-35 MEAN CELL HGB CONCETRATION (test code=MCHC) 28.7 gm/dL 32.2-34.1 RED CELL DISTRIBUTION WIDTH (test code=RDW) 16.0 % 12.4-16.5 PLATELET COUNT (test code=PLT) 420 K/mm3 133-385 IMMATURE PLATELET FRACTION (test code=IPF) 0.0 % 0.0-10.8 MEAN PLATELET VOLUME (test code=MPV) 10.3 fl 9.1-12.7 MANUAL DIFF REQUIRED (test code=MDIFF) YES RBC MORPHOLOGY REQUIRED (test code=RBCM) NORMAL PLATELET MORPHOLOGY REQUIRED (test code=PLTMR) NORMAL WBC [id number] 04:06:00* Test Item Value Reference Range Comments SEGMENTED NEUTROPHILS (test code=SEG) % 56.5-79.4 LYMPHOCYTE (test code=LYMPH) % 20-40 [id number] 21:37:00* Test Item Value Reference Range Comments GLUBED (test code=GLUBED) 129 mg/dL 65-110 [id number] 17:16:00* Test Item Value Reference Range Comments GLUBED (test code=GLUBED) 94 mg/dL 65-110 AB VARICELLA ZOSTER [id number] 14:02:00* Test Item Value Reference Range Comments AB VARICELLA ZOSTER IGG (test code=VARGAB) 591 index Immune >165 Negative <135 Equivocal 135 - 165 Positive >165A positive result generally indicates exposure to thepathogen or administration of specific immunoglobulins,but it is not indication of active infection or stageof disease.Performed At: [facility] [id number] Sanjai MD Ph:[phone] [id number] 12:17:00* Test Item Value Reference Range Comments GLUBED (test code=GLUBED) 127 mg/dL 65-110 [id number] 09:28:00* Test Item Value Reference Range Comments GLUBED (test code=GLUBED) 155 mg/dL 65-110 CBC W/AUTO [id number] 07:07:00* Test Item Value Reference Range Comments WHITE BLOOD CELL (test code=WBC) 16.8 K/mm3 6.6-12.1 RED BLOOD CELL (test code=RBC) 3.97 M/mm3 3.45-5.01 HEMOGLOBIN (test code=HGB) 9.5 g/dL 10.7-13.9 HEMATOCRIT (test code=HCT) 32.2 % 32.1-42.1 MEAN CELL VOLUME (test code=MCV) 81 fL 84.1-94.8 MEAN CELL HGB (test code=MCH) 23.9 pg 27-35 MEAN CELL HGB CONCETRATION (test code=MCHC) 29.5 gm/dL 32.2-34.1 RED CELL DISTRIBUTION WIDTH (test code=RDW) 16.1 % 12.4-16.5 PLATELET COUNT (test code=PLT) 459 K/mm3 133-385 IMMATURE PLATELET FRACTION (test code=IPF) 0.0 % 0.0-10.8 MEAN PLATELET VOLUME (test code=MPV) 10.2 fl 9.1-12.7 NEUTROPHIL % (test code=NT%) 78.9 % 56.5-79.4 LYMPHOCYTE % (test code=LY%) 12.7 % 14.3-34.3 MONOCYTE % (test code=MO%) 6.4 % 5.1-10.4 EOSINOPHIL % (test code=EO%) 0.5 % 0.1-3.0 BASOPHIL % (test code=BA%) 0.2 % 0.1-1.0 NEUTROPHIL # (test code=NT#) 13.2 K/mm3 LYMPHOCYTE # (test code=LY#) 2.1 K/mm3 MONOCYTE # (test code=MO#) 1.1 K/mm3 EOSINOPHIL # (test code=EO#) 0.09 K/mm3 BASOPHIL # (test code=BA#) 0.0 K/mm3 RBC MORPHOLOGY REQUIRED (test code=RBCM) NORMAL NORMAL PLATELET MORPHOLOGY REQUIRED (test code=PLTMR) NORMAL NORMAL CHEMISTRY 7 [id number] 07:02:00* Test Item Value Reference Range Comments SODIUM (test code=NA) 135 mEq/L 135-145 POTASSIUM (test code=K) 4.8 mEq/L 3.5-5.0 CHLORIDE (test code=CL) 105 mEq/L 100-115 CARBON DIOXIDE (test code=CO2) 25 mEq/L 22-31 ANION GAP (test code=GAP) 9.50 10-20 GLUCOSE (test code=GLU) 133 mg/dL 65-110 BLOOD UREA NITROGEN (test code=BUN) 14 mg/dL 7-18 GLOMERULAR FILTRATION RATE (test code=GFR) 103 ml/min >60 CREATININE (test code=CREAT) 0.6 mg/dL 0.5-1.0 CALCIUM (test code=CA) 9.6 mg/dL 8.4-10.2 [id number] 23:54:00* Test Item Value Reference Range Comments GLUBED (test code=GLUBED) 130 mg/dL 65-110 [id number] 19:44:00* Test Item Value Reference Range Comments GLUBED (test code=GLUBED) 137 mg/dL 65-110 [id number] 16:33:00* Test Item Value Reference Range Comments GLUBED (test code=GLUBED) 143 mg/dL 65-110 [id number] 09:13:00* Test Item Value Reference Range Comments GLUBED (test code=GLUBED) 200 mg/dL 65-110 CBC W/AUTO [id number] 06:04:00* Test Item Value Reference Range Comments WHITE BLOOD CELL (test code=WBC) 18.0 K/mm3 6.6-12.1 RED BLOOD CELL (test code=RBC) 3.64 M/mm3 3.45-5.01 HEMOGLOBIN (test code=HGB) 8.6 g/dL 10.7-13.9 HEMATOCRIT (test code=HCT) 29.4 % 32.1-42.1 MEAN CELL VOLUME (test code=MCV) 81 fL 84.1-94.8 MEAN CELL HGB (test code=MCH) 23.6 pg 27-35 MEAN CELL HGB CONCETRATION (test code=MCHC) 29.3 gm/dL 32.2-34.1 RED CELL DISTRIBUTION WIDTH (test code=RDW) 16.0 % 12.4-16.5 PLATELET COUNT (test code=PLT) 389 K/mm3 133-385 IMMATURE PLATELET FRACTION (test code=IPF) 0.0 % 0.0-10.8 MEAN PLATELET VOLUME (test code=MPV) 10.6 fl 9.1-12.7 NEUTROPHIL % (test code=NT%) 90.1 % 56.5-79.4 LYMPHOCYTE % (test code=LY%) 4.6 % 14.3-34.3 MONOCYTE % (test code=MO%) 3.8 % 5.1-10.4 EOSINOPHIL % (test code=EO%) 0.0 % 0.1-3.0 BASOPHIL % (test code=BA%) 0.1 % 0.1-1.0 NEUTROPHIL # (test code=NT#) 16.2 K/mm3 LYMPHOCYTE # (test code=LY#) 0.8 K/mm3 MONOCYTE # (test code=MO#) 0.7 K/mm3 EOSINOPHIL # (test code=EO#) 0 K/mm3 BASOPHIL # (test code=BA#) 0.0 K/mm3 RBC MORPHOLOGY REQUIRED (test code=RBCM) ABNORMAL NORMAL HYPO 3+ PLATELET MORPHOLOGY REQUIRED (test code=PLTMR) ABNORMAL NORMAL PLT CLUMPING CHEMISTRY 7 [id number] 05:32:00* Test Item Value Reference Range Comments SODIUM (test code=NA) 137 mEq/L 135-145 POTASSIUM (test code=K) 4.3 mEq/L 3.5-5.0 CHLORIDE (test code=CL) 102 mEq/L 100-115 CARBON DIOXIDE (test code=CO2) 22 mEq/L 22-31 ANION GAP (test code=GAP) 17.00 10-20 GLUCOSE (test code=GLU) 305 mg/dL 65-110 RESULTS VERIFIED BY REPEAT ANALYSIS BLOOD UREA NITROGEN (test code=BUN) 15 mg/dL 7-18 GLOMERULAR FILTRATION RATE (test code=GFR) 86 ml/min >60 CREATININE (test code=CREAT) 0.7 mg/dL 0.5-1.0 CALCIUM (test code=CA) 9.1 mg/dL 8.4-10.2 CBC W/AUTO [id number] 05:11:00* Test Item Value Reference Range Comments WHITE BLOOD CELL (test code=WBC) 18.0 K/mm3 6.6-12.1 RED BLOOD CELL (test code=RBC) 3.64 M/mm3 3.45-5.01 HEMOGLOBIN (test code=HGB) 8.6 g/dL 10.7-13.9 HEMATOCRIT (test code=HCT) 29.4 % 32.1-42.1 MEAN CELL VOLUME (test code=MCV) 81 fL 84.1-94.8 MEAN CELL HGB (test code=MCH) 23.6 pg 27-35 MEAN CELL HGB CONCETRATION (test code=MCHC) 29.3 gm/dL 32.2-34.1 RED CELL DISTRIBUTION WIDTH (test code=RDW) 16.0 % 12.4-16.5 PLATELET COUNT (test code=PLT) 389 K/mm3 133-385 IMMATURE PLATELET FRACTION (test code=IPF) 0.0 % 0.0-10.8 MEAN PLATELET VOLUME (test code=MPV) 10.6 fl 9.1-12.7 NEUTROPHIL % (test code=NT%) 90.1 % 56.5-79.4 LYMPHOCYTE % (test code=LY%) 4.6 % 14.3-34.3 MONOCYTE % (test code=MO%) 3.8 % 5.1-10.4 EOSINOPHIL % (test code=EO%) 0.0 % 0.1-3.0 BASOPHIL % (test code=BA%) 0.1 % 0.1-1.0 NEUTROPHIL # (test code=NT#) 16.2 K/mm3 LYMPHOCYTE # (test code=LY#) 0.8 K/mm3 MONOCYTE # (test code=MO#) 0.7 K/mm3 EOSINOPHIL # (test code=EO#) 0 K/mm3 BASOPHIL # (test code=BA#) 0.0 K/mm3 RBC MORPHOLOGY REQUIRED (test code=RBCM) NORMAL PLATELET MORPHOLOGY REQUIRED (test code=PLTMR) NORMAL [id number] 21:41:00* Test Item Value Reference Range Comments GLUBED (test code=GLUBED) 259 mg/dL 65-110 Feed, repeat 1 hr CHEMISTRY 7 [id number] 15:48:00* Test Item Value Reference Range Comments SODIUM (test code=NA) 141 mEq/L 135-145 POTASSIUM (test code=K) 3.6 mEq/L 3.5-5.0 CHLORIDE (test code=CL) 105 mEq/L 100-115 CARBON DIOXIDE (test code=CO2) 22 mEq/L 22-31 ANION GAP (test code=GAP) 17.90 10-20 GLUCOSE (test code=GLU) 119 mg/dL 65-110 BLOOD UREA NITROGEN (test code=BUN) 12 mg/dL 7-18 GLOMERULAR FILTRATION RATE (test code=GFR) 103 ml/min >60 CREATININE (test code=CREAT) 0.6 mg/dL 0.5-1.0 CALCIUM (test code=CA) 9.4 mg/dL 8.4-10.2 HGB [id number] 15:18:00* Test Item Value Reference Range Comments HEMOGLOBIN (test code=HGB) 8.9 g/dL 10.7-13.9 HEMATOCRIT (test code=HCT) 30.1 % 32.1-42.1 [id number] 05:58:00* Test Item Value Reference Range Comments GLUBED (test code=GLUBED) 130 mg/dL 65-110 [id number] 21:51:00* Test Item Value Reference Range Comments GLUBED (test code=GLUBED) 149 mg/dL 65-110 [id number] 15:39:00* Test Item Value Reference Range Comments GLUBED (test code=GLUBED) 138 mg/dL 65-110 [id number] 10:55:00* Test Item Value Reference Range Comments GLUBED (test code=GLUBED) 167 mg/dL 65-110 [id number] 05:13:00* Test Item Value Reference Range Comments GLUBED (test code=GLUBED) 176 mg/dL 65-110 [id number] 18:51:00* Test Item Value Reference Range Comments GLUBED (test code=GLUBED) 83 mg/dL 65-110 CT ABDOMEN/PELVIS [id number] 02:27:00 [facility] [address] [place], [place] [id number] Patient Name: RAHUL GRIFFIN MR #: [id number] : 1960 Age/Sex: 57/F Req #: [id number] [facility] Physician: Ordered by: NILESH MURRY MD Report #: [id number] Location: ER Room/Bed: Procedure: [id number] CT/CT ABDOMEN/PELVIS WOW Exam Date: Exam Time: REPORT STATUS: Signed EXAM: CT Abdo men and Pelvis WITH and without contrast INDICATION: Pain COMPARIS ON: None. TECHNIQUE: Abdomen and Pelvis was scanned utilizing a multidetec tor helical scanner before and after administration of IV contrast. Coronal an d sagittal reformations were obtained. IV CONTRAST: 100 mL Isovu e-370 COMPLICATIONS: None RADIATION DOSE: Tot al DLP:286 mGy*cm Estimated effective dose: (DLP x 0.015 x size factor) m Sv CTDIvol has been reviewed. It is below the limits set by the Radiation Protocol Committee (RPC). Appropriate CT dose reduction techniques were uti lized. FINDINGS: Abdomen: Lung Bases: No acute findings. Solid Organs: Liver is enlarged. Left kidney atrophic. Tiny nonobstructing bilateral renal calculi better demonstrated precontrast images. No hydronephro sis or ureteral calculi. Solid organs otherwise unremarkable. Upper GI Trac t: Decompressed stomach limits evaluation. No small bowel obstructive changes. Vascularity: Mild to moderate aortic vascular calcifications with no aneur ysm. Lymph Nodes: No suspicious adenopathy. Other: None. Pelvi s: Bladder: Decompressed, limiting evaluation. Other: Markedly enl arged heterogeneous/necrotic uterus/mass consistent with known malignancy. Colon: Diverticulosis sigmoid colon. There is a loop of colon with inflammatory changes in the central lower abdomen/upper pelvis directly adjacent to large uterine mass. Visualized portions of appendix not dilated and gas-filled. Bones: No acute findings. IMPRESSION: 1. Markedly enlarged heterog eneous/necrotic uterus, consistent with known malignancy. 2. Diverticulo sis. Mild to moderate inflammatory stranding about loops of sigmoid colon like ly diverticulitis. Given adjacent uterine mass, malignant involvement of sigmo id colon not excluded. 3. Appendix not distinctly dilated and gas-filled, which is normal/physiologic. Surrounding inflammation presumed secondary to ab ove described process and not appendicitis. 4. Hepatomegaly. Signed by: Dr. Chris Atkins MD on 08/16/2018 2:32 AM Dictated By: CHRIS ATKINS MD 1 Transcribed B y: MANISH on 08/16/18231 COPY TO: NILESH MURRY MD
--- NOTE | 2018-10-25 19:15 | NUR ---
REPORT GIVEN TO TITA BRADEN.
[2018-10-25 20:10] LABS: BASOPHILS # (AUTO) 0.1 (0.0-0.1); BASOPHILS % 0.3 % (0.0-1.0); EOSINOPHILS # (AUTO) 0.1 (0.0-0.4); EOSINOPHILS % 0.7 % (0.0-6.0); HEMATOCRIT 38.8 % (34.2-44.1); HEMOGLOBIN 12.2 g/dL (12.0-16.0); LYMPHOCYTES % 24.6 % (18.0-39.1); MEAN CORPUSCULAR HEMOGLOBIN 25.7 pg (28-32); MEAN CORPUSCULAR HGB CONC 31.4 g/dL (31-35); MEAN CORPUSCULAR VOLUME 81.7 fL (81-99); MONOCYTES % 5.9 % (4.4-11.3); NEUTROPHILS # (AUTO) 11.1 (2.1-6.9); NEUTROPHILS % 68.1 % (38.7-80.0); PLATELET COUNT 551 x10e3/uL (140-360); RED BLOOD COUNT 4.75 x10e6/uL (3.6-5.1); RED CELL DISTRIBUTION WIDTH 18.9 % (11.7-14.4)
[2018-10-25 20:26] LABS: ALANINE AMINOTRANSFERASE 45 IU/L (0-55); ALBUMIN 2.8 g/dL (3.5-5.0); ALBUMIN/GLOBULIN RATIO 0.7 (0.8-2.0); ALKALINE PHOSPHATASE 160 IU/L (40-150); ANION GAP 13.3 mmol/L (8-16); BLOOD UREA NITROGEN 22 mg/dL (7-26); BUN/CREATININE RATIO 30 (6-25); CALCIUM 12.5 mg/dL (8.4-10.2); CARBON DIOXIDE 22 mmol/L (22-29); CHLORIDE 101 mmol/L (98-107); CREATININE, SERUM 0.74 mg/dL (0.57-1.11); EST GLOMERULAR FILTRATION RATE > 60 ML/MIN (60-); GLUCOSE 116 mg/dL (74-118); POTASSIUM 4.3 mmol/L (3.5-5.1); SODIUM 132 mmol/L (136-145)
--- NOTE | 2018-10-25 20:45 | NUR ---
INTO PTS ROOM AT THIS TIME, PT PULLED OUT RT UPPER ARM MIDLINE. MIDLINE WAS PRESENT ON ARRIVAL. PT STATES THAT SHE DID NOT NEED IT ANYMORE AND THAT SHE WAS FINE. CATH INTACT, SITE WITHOUT COMPLICATIONS. NO REDNESS OR SWELLING NOTED. DR KENNEDY NOTIFIED.
[2018-10-25] MEDS ORDERED: ONDANSETRON HCL INJ 2MG/ML 2ML 2 MG/ML VIAL IV STA (21:41)
[2018-10-25] MEDS ORDERED: SODIUM CHLORIDE 0.9% 1000ML 1,000 ML IV ONE (21:45)
[2018-10-25] MEDS ORDERED: HYDROMORPHONE 2MG/ML 2 MG/ML ML IV ONE (21:45)
[2018-10-25 21:57] LABS: CLARITY,URINE HAZY (CLEAR); COLOR,URINE AMBER (YELLOW); LEUKOCYTE ESTERASE ,URINE 1+ (NEGATIVE); NITRITE,URINE NEGATIVE (NEGATIVE)
--- NOTE | 2018-10-25 21:57 | Diagnostic Imaging Report ---
EXAMINATION: CHEST SINGLE (PORTABLE) COMPARISON: None INDICATION: Abdominal pain, fever ^elevated white count ^[id number] ^2119 ^Y DISCUSSION: Frontal view of the chest obtained at 2125 hours. HEART AND MEDIASTINUM: The cardiomediastinal silhouette is unremarkable. LINES: None. LUNGS: The lungs are well inflated and clear. No pneumonia or pulmonary edema. PLEURA: No pleural effusion or pneumothorax. BONES AND SOFT TISSUES: No focal osseous lesion. The soft tissues are normal. IMPRESSION: No acute cardiopulmonary disease. Signed by: Dr. Lawrence Ding MD on 10/25/2018 9:54 PM
[2018-10-25 21:58] LABS: BILIRUBIN,URINE 1+ (NEGATIVE); KETONES,URINE NEGATIVE (NEGATIVE); PROTEIN,URINE DIPSTICK 3+ (NEGATIVE); URINE UROBILINOGEN 0.2 mg/dL (0.2 - 1)
[2018-10-25 22:10] LABS: BACTERIA,URINE MODERATE /HPF; EPITHELIAL CELLS,URINE FEW /LPF; RBC,URINE >50 /HPF (0-5); WBC,URINE (MAN) >50 /HPF (0-5)
--- NOTE | 2018-10-25 23:50 | Diagnostic Imaging Report ---
CT Abdomen And Pelvis with Intravenous Contrast INDICATION: malignancy ^abdominal pain, leukocytosis ^[id number] ^2258 ^Y TECHNIQUE: Thin collimation axial images obtained from the diaphragm to the level of the pubic symphysis following the uneventful administration of 100 cc of low osmolar, nonionic intravenous contrast. Dose reduction techniques used: Automated exposure control, adjustment of the mAs and/or kVp according to patient size, standardized low-dose protocol, and/or iterative reconstruction technique. RADIATION DOSE: Total DLP: 183.19 mGy*cm Estimated effective dose: (DLP x 0.015 x size factor) mSv CTDIvol has been reviewed. It is below the limits set by the Radiation Protocol Committee (RPC). COMPARISON: CT abdomen/pelvis 08/16/2018. ABDOMEN FINDINGS: Lung Bases: No mass or infiltrate. Visualized portion of the mediastinum is normal. Liver: Steatosis. No mass. Gallbladder: Present and appears normal. No biliary ductal dilatation. Pancreas: Normal attenuation without mass or ductal dilatation. Spleen: Normal in size. No evidence of mass.. Adrenal Glands: New nodule in the right adrenal gland measures 2.4 x 1.5 cm. Left adrenal gland is normal. Kidneys: Right: Ureteral stent has been placed. There is distention of the collecting system without javed hydronephrosis. No perinephric inflammation. No soft tissue mass. Left: Diminutive with diminished cortical enhancement. The collecting system is now dilated and contains a ureteral stent. No soft tissue mass. Lymph Nodes: No enlarged abdominal or periaortic lymph nodes. Aorta: Normal in diameter with atherosclerotic calcifications PELVIS FINDINGS: Bowel: Stomach: Normal. Small Bowel: Left ileostomy without parastomal hernia. The bowel is normal in caliber with normal wall thickness. Large Bowel: There is enteric contrast in the right colon. Several diverticula are present. The sigmoid colon has diffusely thickened mccormick and there is poor tissue differentiation between the sigmoid colon and the uterine mass. The large bowel is not dilated. The uterine mass also involves the rectum. Appendix: Normal appendix. Bladder: Contains the ureteral stents. There is poor tissue differentiation between the uterine mass and the posterior bladder wall. Air is no intraluminal air. Uterus: A normal uterus is not identified. Instead, there is a heterogeneously enhancing lobulated soft tissue mass that measures 15 cm in length and 11.8 x 12.8 cm in the axial plane. As mentioned above, there is involvement of the bladder, sigmoid colon, and rectum. There is also involvement of the distal ureters. There is no evidence of air within the mass to suggest fistulous communication with the bowel. Neither ovary is visualized. There is no free fluid or fluid collection. Bones: No lytic or blastic lesions. No significant periosteal new bone formation surrounding the tip of the coccyx. No heterotopic bone formation. Soft tissues: Sacral decubitus ulcer extends to the coccygeal tip. There is a soft tissue fluid collection to the left of midline in the posterior gluteal fat measuring 1.2 x 0.6 cm (axial image 79). IMPRESSION: 1. Interval development of bilateral hydroureteronephrosis with the placement of bilateral ureteral stents in appropriate position. 2. Uterine malignancy is similar morphology with invasion of the bladder, distal ureters, sigmoid colon, and rectum. 3. Interval creation of left ileostomy without evidence of bowel obstruction. Diverticulosis coli. No CT evidence of diverticulitis. Inflammation of the sigmoid colon due to tumor invasion cannot be excluded. 4. New sacral decubitus ulcer with subcutaneous fluid collection in the left medial gluteal fat suggestive of developing abscess. Early osteomyelitis of the coccygeal tip cannot be excluded. 5. New right adrenal mass consistent with metastasis. Signed by: Dr. Lawrence Ding MD on 10/25/2018 11:46 PM
[2018-10-26] VITALS (8 sets, daily range): BP systolic 119–149; BP diastolic 68–93
[2018-10-26] MEDS ORDERED: CEFTRIAXONE SOD 1 GM/NS 50 ML 50 ML IV ONE (00:15)
[2018-10-26] MEDS: PIPER-TAZ 3.375 GM 50 ML IV SCH ×4 (00:15→21:15)
[2018-10-26] MEDS: VANCOMYCIN 1GM/NS 250 ML 250 ML IV SCH ×2 (00:30→12:15)
[2018-10-26] MEDS ORDERED: ONDANSETRON HCL INJ 2MG/ML 2ML 2 MG/ML VIAL IV PRN (00:30)
[2018-10-26] MEDS: SODIUM CHLORIDE 0.9% 1000ML 1,000 ML IV SCH ×3 (00:30→16:21)
[2018-10-26] MEDS ORDERED: DEXTROSE 50% SYRINGE 50 ML IV PRN (00:30)
--- OUTSIDE RECORDS SUMMARY | 2018-10-26 00:34 | XMS REPORT | Clinical Summary ---
Author Author [facility] Address Unknown Phone Unavailable Care Team Providers Care Food And Beverage Controller Name Role Phone PCP Unavailable Allergies No [...] type; Hypomagnesemia; Hypoxemia requiring supplemental oxygen 08/22/2018 [facility] General Internal Medicine - Encounter 09/26/2018 08/22/2018 Orders Only General Internal Medicine after 10/25/2017 Social History Date Tobacco Use Types Packs/Day [...] CDT Oxygen Saturation 94% 09/08/2018 1:30 PM RECRUIT INSTRUCTOR Inhaled Oxygen 36% Concentration 09/25/2018 4:59 AM CDT Weight 59.2 kg (130 lb 9.6 oz) 08/22/2018 2:00 AM RECRUIT INSTRUCTOR Height 154.9 cm (5' 1") 09/25/2018 4:59 AM CDT Body Mass Index 24.68 Plan of Treatment Not on file Implants Device Identifier Shelf Expiration Date Model / Serial / Lot Implanted Type Area Manufactur er 10/08/2018 [id number] / N/A / [id number] Stent Uret Cntour Inj [id number] IMPLANTS Left: Ureter [employer] [id number] - Sn/A SCI:UROLOG Implanted: Qty: 1 on 09/18/2018 by Rolan/Wai Hollis MD GY 10/08/2018 [id number] / N/A / [id number] Stent [employer]ret Cntour Inj [id number] IMPLANTS Right: Ureter [employer] [id number] - Sn/A SCI:UROLOG Implanted: Qty: 1 on [...] METER Routine 09/18/2018 9:35 PM CDT FL OPTICAL GLASS WET INSPECTOR IN OR 30 Routine 09/18/2018 MINUTE INCREMENTS [...] CDT POCT-GLUCOSE METER Routine 09/16/2018 8:58 PM RECRUIT INSTRUCTOR POCT-GLUCOSE METER Routine 09/16/2018 5:54 PM RECRUIT INSTRUCTOR POCT-GLUCOSE METER Routine 09/16/2018 11:24 AM RECRUIT INSTRUCTOR XR CHEST 1 VIEW Routine 09/16/2018 PORTABLE/BEDSIDE 10:09 AM RECRUIT INSTRUCTOR POCT-GLUCOSE METER Routine 09/16/2018 7:31 AM RECRUIT INSTRUCTOR CBC W/PLT COUNT & AUTO Routine 09/16/2018 DIFFERENTIAL 4:03 AM RECRUIT INSTRUCTOR COMPREHENSIVE METABOLIC Routine 09/16/2018 PANEL 4:03 AM RECRUIT INSTRUCTOR PHOSPHORUS Routine 09/16/2018 4:03 AM RECRUIT INSTRUCTOR MAGNESIUM Routine 09/16/2018 4:03 AM RECRUIT INSTRUCTOR PT/APTT Routine 09/16/2018 4:03 AM RECRUIT INSTRUCTOR CBC W/PLT COUNT & AUTO Routine 09/16/2018 DIFFERENTIAL 4:03 AM RECRUIT INSTRUCTOR POCT-GLUCOSE METER Routine 09/15/2018 9:10 PM RECRUIT INSTRUCTOR POCT-GLUCOSE METER Routine 09/15/2018 6:[address] DRAINAGE ABDOMINAL Routine 09/15/2018 4:54 PM RECRUIT INSTRUCTOR BODY FLUID CULTURE + GRAM SHIVANI 09/15/2018 STAIN 4:[address] ABDOMEN/PELVIS WITHOUT Routine 09/15/2018 IV CONTRAST 12:34 PM RECRUIT INSTRUCTOR XR CHEST 1 VIEW Routine 09/15/2018 PORTABLE/BEDSIDE 9:51 AM RECRUIT INSTRUCTOR URINALYSIS W/ MICROSCOPIC Routine 09/15/2018 8:59 AM RECRUIT INSTRUCTOR UREA NITROGEN, RANDOM Routine 09/15/2018 URINE 8:59 AM RECRUIT INSTRUCTOR CREATININE, RANDOM URINE Routine 09/15/2018 8:59 AM RECRUIT INSTRUCTOR SODIUM, RANDOM URINE Routine 09/15/2018 8:59 AM RECRUIT INSTRUCTOR POCT-GLUCOSE METER Routine 09/15/2018 7:58 AM RECRUIT INSTRUCTOR CBC W/PLT COUNT & AUTO Routine 09/15/2018 DIFFERENTIAL 4:15 AM RECRUIT INSTRUCTOR CBC W/PLT COUNT & AUTO Routine 09/15/2018 DIFFERENTIAL 4:15 AM RECRUIT INSTRUCTOR PHOSPHORUS Routine 09/15/2018 4:15 AM RECRUIT INSTRUCTOR MAGNESIUM Routine 09/15/2018 4:15 AM RECRUIT INSTRUCTOR BASIC METABOLIC PANEL (7) Routine 09/15/2018 4:15 AM RECRUIT INSTRUCTOR PT/APTT Routine 09/15/2018 4:15 AM RECRUIT INSTRUCTOR CBC W/PLT COUNT & AUTO Routine 09/15/2018 DIFFERENTIAL 4:15 AM RECRUIT INSTRUCTOR CBC W/PLT COUNT & AUTO Routine 09/15/2018 DIFFERENTIAL 4:15 AM RECRUIT INSTRUCTOR BASIC METABOLIC PANEL (7) Routine 09/15/2018 4:15 AM RECRUIT INSTRUCTOR POCT-GLUCOSE METER Routine 09/14/2018 8:54 PM RECRUIT INSTRUCTOR POCT-GLUCOSE METER Routine 09/14/2018 6:26 PM RECRUIT INSTRUCTOR PREALBUMIN Routine 09/14/2018 3:04 PM RECRUIT INSTRUCTOR POCT-GLUCOSE METER Routine 09/14/2018 9:03 AM RECRUIT INSTRUCTOR XR CHEST 1 VIEW Routine 09/14/2018 PORTABLE/BEDSIDE 7:38 AM RECRUIT INSTRUCTOR CBC W/PLT COUNT & AUTO Routine 09/14/2018 DIFFERENTIAL 4:42 AM RECRUIT INSTRUCTOR CBC W/PLT COUNT & AUTO Routine 09/14/2018 DIFFERENTIAL 4:42 AM RECRUIT INSTRUCTOR PHOSPHORUS Routine 09/14/2018 4:42 AM RECRUIT INSTRUCTOR MAGNESIUM Routine 09/14/2018 4:42 AM RECRUIT INSTRUCTOR BASIC METABOLIC PANEL (7) Routine 09/14/2018 4:42 AM RECRUIT INSTRUCTOR PT/APTT Routine 09/14/2018 4:42 AM RECRUIT INSTRUCTOR CBC W/PLT COUNT & AUTO Routine 09/14/2018 DIFFERENTIAL 4:42 AM RECRUIT INSTRUCTOR CBC W/PLT COUNT & AUTO Routine 09/14/2018 DIFFERENTIAL 4:42 AM RECRUIT INSTRUCTOR BASIC METABOLIC PANEL (7) Routine 09/14/2018 4:42 AM RECRUIT INSTRUCTOR POCT-GLUCOSE METER Routine 09/13/2018 9:10 PM RECRUIT INSTRUCTOR POCT-GLUCOSE METER Routine 09/13/2018 6:00 PM RECRUIT INSTRUCTOR POCT-GLUCOSE METER Routine 09/13/2018 5:04 PM RECRUIT INSTRUCTOR XR CHEST 1 VIEW Routine 09/13/2018 PORTABLE/BEDSIDE 6:21 AM RECRUIT INSTRUCTOR CBC W/PLT COUNT & AUTO Routine 09/13/2018 DIFFERENTIAL 5:29 AM RECRUIT INSTRUCTOR HEMOGLOBIN A1C Routine 09/13/2018 5:29 AM RECRUIT INSTRUCTOR CBC W/PLT COUNT & AUTO Routine 09/13/2018 DIFFERENTIAL 5:29 AM RECRUIT INSTRUCTOR BASIC METABOLIC PANEL (7) Routine 09/13/2018 5:29 AM RECRUIT INSTRUCTOR CBC W/PLT COUNT & AUTO Routine 09/13/2018 DIFFERENTIAL 4:54 AM RECRUIT INSTRUCTOR PHOSPHORUS Routine 09/13/2018 4:54 AM RECRUIT INSTRUCTOR MAGNESIUM Routine 09/13/2018 4:54 AM RECRUIT INSTRUCTOR BASIC METABOLIC PANEL (7) Routine 09/13/2018 4:54 AM RECRUIT INSTRUCTOR PT/APTT Routine 09/13/2018 4:54 AM RECRUIT INSTRUCTOR CBC W/PLT COUNT & AUTO Routine 09/13/2018 DIFFERENTIAL 4:54 AM RECRUIT INSTRUCTOR POCT-GLUCOSE METER Routine 09/12/2018 10:35 PM RECRUIT INSTRUCTOR POCT-GLUCOSE METER Routine 09/12/2018 9:56 PM RECRUIT INSTRUCTOR POCT-GLUCOSE METER Routine 09/12/2018 5:57 PM RECRUIT INSTRUCTOR POCT-GLUCOSE METER Routine 09/12/2018 5:09 PM RECRUIT INSTRUCTOR POCT-GLUCOSE METER Routine 09/12/2018 7:46 AM RECRUIT INSTRUCTOR XR CHEST 1 VIEW Routine 09/12/2018 PORTABLE/BEDSIDE 7:25 AM RECRUIT INSTRUCTOR CBC W/PLT COUNT & AUTO Routine 09/12/2018 DIFFERENTIAL 4:10 AM RECRUIT INSTRUCTOR PHOSPHORUS Routine 09/12/2018 4:10 AM RECRUIT INSTRUCTOR MAGNESIUM Routine 09/12/2018 4:10 AM RECRUIT INSTRUCTOR BASIC METABOLIC PANEL (7) Routine 09/12/2018 4:10 AM RECRUIT INSTRUCTOR PT/APTT Routine 09/12/2018 4:10 AM RECRUIT INSTRUCTOR CBC W/PLT COUNT & AUTO Routine 09/12/2018 DIFFERENTIAL 4:10 AM RECRUIT INSTRUCTOR POCT-GLUCOSE METER Routine 09/11/2018 9:10 PM RECRUIT INSTRUCTOR POCT-GLUCOSE METER Routine 09/11/2018 6:02 PM RECRUIT INSTRUCTOR POCT-GLUCOSE METER Routine 09/11/2018 5:36 PM RECRUIT INSTRUCTOR POCT-GLUCOSE METER Routine 09/11/2018 11:[address] ABDOMEN/PELVIS WITH IV Routine 09/11/2018 CONTRAST 10:32 AM RECRUIT INSTRUCTOR XR CHEST 1 VIEW Routine 09/11/2018 PORTABLE/BEDSIDE 7:51 AM RECRUIT INSTRUCTOR POCT-GLUCOSE METER Routine 09/11/2018 7:21 AM RECRUIT INSTRUCTOR CBC W/PLT COUNT & AUTO Routine 09/11/2018 DIFFERENTIAL 5:53 AM RECRUIT INSTRUCTOR PHOSPHORUS Routine 09/11/2018 5:53 AM RECRUIT INSTRUCTOR MAGNESIUM Routine 09/11/2018 5:53 AM RECRUIT INSTRUCTOR BASIC METABOLIC PANEL (7) Routine 09/11/2018 5:53 AM RECRUIT INSTRUCTOR PT/APTT Routine 09/11/2018 5:53 AM RECRUIT INSTRUCTOR CBC W/PLT COUNT & AUTO Routine 09/11/2018 DIFFERENTIAL 5:53 AM RECRUIT INSTRUCTOR BASIC METABOLIC PANEL (7) Routine 09/11/2018 5:53 AM RECRUIT INSTRUCTOR POCT-GLUCOSE METER Routine 09/10/2018 9:08 PM RECRUIT INSTRUCTOR POCT-GLUCOSE METER Routine 09/10/2018 5:58 PM RECRUIT INSTRUCTOR POCT-GLUCOSE METER Routine 09/10/2018 12:56 PM RECRUIT INSTRUCTOR XR CHEST 1 VIEW Routine 09/10/2018 PORTABLE/BEDSIDE 9:31 AM RECRUIT INSTRUCTOR POCT-GLUCOSE METER Routine 09/10/2018 9:27 AM RECRUIT INSTRUCTOR CBC W/PLT COUNT & AUTO Routine 09/10/2018 DIFFERENTIAL 7:07 AM RECRUIT INSTRUCTOR PHOSPHORUS Routine 09/10/2018 7:07 AM RECRUIT INSTRUCTOR MAGNESIUM Routine 09/10/2018 7:07 AM RECRUIT INSTRUCTOR BASIC METABOLIC PANEL (7) Routine 09/10/2018 7:07 AM RECRUIT INSTRUCTOR PT/APTT Routine 09/10/2018 7:07 AM RECRUIT INSTRUCTOR CBC W/PLT COUNT & AUTO Routine 09/10/2018 DIFFERENTIAL 7:07 AM RECRUIT INSTRUCTOR POCT-GLUCOSE METER Routine 09/09/2018 9:11 PM RECRUIT INSTRUCTOR POCT-GLUCOSE METER Routine 09/09/2018 5:28 PM RECRUIT INSTRUCTOR POCT-GLUCOSE METER Routine 09/09/2018 12:52 PM RECRUIT INSTRUCTOR XR CHEST 1 VIEW Routine 09/09/2018 PORTABLE/BEDSIDE 9:08 AM RECRUIT INSTRUCTOR POCT-GLUCOSE METER Routine 09/09/2018 7:31 AM RECRUIT INSTRUCTOR CBC W/PLT COUNT & AUTO Routine 09/09/2018 DIFFERENTIAL 5:15 AM RECRUIT INSTRUCTOR PHOSPHORUS Routine 09/09/2018 5:15 AM RECRUIT INSTRUCTOR MAGNESIUM Routine 09/09/2018 5:15 AM RECRUIT INSTRUCTOR PT/APTT Routine 09/09/2018 5:15 AM RECRUIT INSTRUCTOR CBC W/PLT COUNT & AUTO Routine 09/09/2018 DIFFERENTIAL 5:15 AM RECRUIT INSTRUCTOR BASIC METABOLIC PANEL (7) Routine 09/09/2018 5:15 AM RECRUIT INSTRUCTOR POCT-GLUCOSE METER Routine 09/08/2018 11:39 PM RECRUIT INSTRUCTOR POCT-GLUCOSE METER Routine 09/08/2018 5:31 PM RECRUIT INSTRUCTOR POCT-GLUCOSE METER Routine 09/08/2018 11:49 AM RECRUIT INSTRUCTOR POCT-GLUCOSE METER Routine 09/08/2018 8:13 AM RECRUIT INSTRUCTOR XR CHEST 1 VIEW Routine 09/08/2018 PORTABLE/BEDSIDE 7:19 AM RECRUIT INSTRUCTOR CBC W/PLT COUNT & AUTO Routine 09/08/2018 DIFFERENTIAL 3:29 AM RECRUIT INSTRUCTOR PHOSPHORUS Routine 09/08/2018 3:29 AM RECRUIT INSTRUCTOR MAGNESIUM Routine 09/08/2018 3:29 AM RECRUIT INSTRUCTOR BASIC METABOLIC PANEL (7) Routine 09/08/2018 3:29 AM RECRUIT INSTRUCTOR PT/APTT Routine 09/08/2018 3:29 AM RECRUIT INSTRUCTOR CBC W/PLT COUNT & AUTO Routine 09/08/2018 DIFFERENTIAL 3:29 AM RECRUIT INSTRUCTOR POCT-GLUCOSE METER Routine 09/08/2018 2:11 AM RECRUIT INSTRUCTOR POCT-GLUCOSE METER Routine 09/08/2018 12:46 AM RECRUIT INSTRUCTOR POCT-GLUCOSE METER Routine 09/07/2018 9:30 PM RECRUIT INSTRUCTOR POCT-GLUCOSE METER Routine 09/07/2018 8:59 PM RECRUIT INSTRUCTOR POCT-GLUCOSE METER Routine 09/07/2018 4:41 PM RECRUIT INSTRUCTOR POCT-GLUCOSE METER Routine 09/07/2018 9:50 AM RECRUIT INSTRUCTOR XR CHEST 1 VIEW Routine 09/07/2018 PORTABLE/BEDSIDE 7:43 AM RECRUIT INSTRUCTOR CBC W/PLT COUNT & AUTO Routine 09/07/2018 DIFFERENTIAL 3:54 AM RECRUIT INSTRUCTOR PHOSPHORUS Routine 09/07/2018 3:54 AM RECRUIT INSTRUCTOR MAGNESIUM Routine 09/07/2018 3:54 AM RECRUIT INSTRUCTOR BASIC METABOLIC PANEL (7) Routine 09/07/2018 3:54 AM RECRUIT INSTRUCTOR PT/APTT Routine 09/07/2018 3:54 AM RECRUIT INSTRUCTOR CBC W/PLT COUNT & AUTO Routine 09/07/2018 DIFFERENTIAL 3:54 AM RECRUIT INSTRUCTOR POCT-GLUCOSE METER Routine 09/06/2018 9:00 PM RECRUIT INSTRUCTOR POCT-GLUCOSE METER Routine 09/06/2018 5:33 PM RECRUIT INSTRUCTOR POCT-GLUCOSE METER Routine 09/06/2018 12:23 PM RECRUIT INSTRUCTOR POCT-GLUCOSE METER Routine 09/06/2018 7:37 AM RECRUIT INSTRUCTOR XR CHEST 1 VIEW Routine 09/06/2018 PORTABLE/BEDSIDE 7:16 AM RECRUIT INSTRUCTOR CBC W/PLT COUNT & AUTO Routine 09/06/2018 DIFFERENTIAL 3:59 AM RECRUIT INSTRUCTOR PHOSPHORUS Routine 09/06/2018 3:59 AM RECRUIT INSTRUCTOR MAGNESIUM Routine 09/06/2018 3:59 AM RECRUIT INSTRUCTOR BASIC METABOLIC PANEL (7) Routine 09/06/2018 3:59 AM RECRUIT INSTRUCTOR PT/APTT Routine 09/06/2018 3:59 AM RECRUIT INSTRUCTOR CBC W/PLT COUNT & AUTO Routine 09/06/2018 DIFFERENTIAL 3:59 AM RECRUIT INSTRUCTOR BASIC METABOLIC PANEL (7) Routine 09/06/2018 3:59 AM RECRUIT INSTRUCTOR POCT-GLUCOSE METER Routine 09/05/2018 10:31 PM RECRUIT INSTRUCTOR POCT-GLUCOSE METER Routine 09/05/2018 4:57 PM RECRUIT INSTRUCTOR POCT-GLUCOSE METER Routine 09/05/2018 11:40 AM RECRUIT INSTRUCTOR POCT-GLUCOSE METER Routine 09/05/2018 10:11 AM RECRUIT INSTRUCTOR POCT-GLUCOSE METER Routine 09/05/2018 6:07 AM RECRUIT INSTRUCTOR CBC W/PLT COUNT & AUTO Routine 09/05/2018 DIFFERENTIAL 4:54 AM RECRUIT INSTRUCTOR PHOSPHORUS Routine 09/05/2018 4:54 AM RECRUIT INSTRUCTOR MAGNESIUM Routine 09/05/2018 4:54 AM RECRUIT INSTRUCTOR BASIC METABOLIC PANEL (7) Routine 09/05/2018 4:54 AM RECRUIT INSTRUCTOR PT/APTT Routine 09/05/2018 4:54 AM RECRUIT INSTRUCTOR CBC W/PLT COUNT & AUTO Routine 09/05/2018 DIFFERENTIAL 4:54 AM RECRUIT INSTRUCTOR XR CHEST 1 VIEW Routine 09/05/2018 PORTABLE/BEDSIDE 4:42 AM RECRUIT INSTRUCTOR POCT-GLUCOSE METER Routine 09/05/2018 12:43 AM RECRUIT INSTRUCTOR POCT-GLUCOSE METER Routine 09/05/2018 12:12 AM RECRUIT INSTRUCTOR POCT-GLUCOSE METER Routine 09/04/2018 7:[address] ABDOMEN/PELVIS WITH IV STAT 09/04/2018 CONTRAST 6:06 PM RECRUIT INSTRUCTOR TRANSFUSION SERVICE 09/04/2018 REPORT - SCAN 6:01 PM RECRUIT INSTRUCTOR POCT-GLUCOSE METER Routine 09/04/2018 4:42 PM RECRUIT INSTRUCTOR POCT-GLUCOSE METER Routine 09/04/2018 12:03 PM RECRUIT INSTRUCTOR XR CHEST 1 VIEW Routine 09/04/2018 PORTABLE/BEDSIDE 7:07 AM RECRUIT INSTRUCTOR POCT-GLUCOSE METER Routine 09/04/2018 6:03 AM RECRUIT INSTRUCTOR CBC W/PLT COUNT & AUTO Routine 09/04/2018 DIFFERENTIAL 5:03 AM RECRUIT INSTRUCTOR PHOSPHORUS Routine 09/04/2018 5:03 AM RECRUIT INSTRUCTOR MAGNESIUM Routine 09/04/2018 5:03 AM RECRUIT INSTRUCTOR BASIC METABOLIC PANEL (7) Routine 09/04/2018 5:03 AM RECRUIT INSTRUCTOR PT/APTT Routine 09/04/2018 5:03 AM RECRUIT INSTRUCTOR CBC W/PLT COUNT & AUTO Routine 09/04/2018 DIFFERENTIAL 5:03 AM RECRUIT INSTRUCTOR POCT-GLUCOSE METER Routine 09/04/2018 12:54 AM RECRUIT INSTRUCTOR PREPARE LEUKO-REDUCED RBC Routine 09/03/2018 11:54 PM RECRUIT INSTRUCTOR POCT-GLUCOSE METER Routine 09/03/2018 6:30 PM RECRUIT INSTRUCTOR TRANSFUSION SERVICE 09/03/2018 REPORT - SCAN 6:00 PM RECRUIT INSTRUCTOR POCT-GLUCOSE METER Routine 09/03/2018 12:39 PM RECRUIT INSTRUCTOR POCT-GLUCOSE METER Routine 09/03/2018 5:55 AM RECRUIT INSTRUCTOR XR CHEST 1 VIEW Routine 09/03/2018 PORTABLE/BEDSIDE 5:27 AM RECRUIT INSTRUCTOR CBC W/PLT COUNT & AUTO Routine 09/03/2018 DIFFERENTIAL 4:52 AM RECRUIT INSTRUCTOR PHOSPHORUS Routine 09/03/2018 4:52 AM RECRUIT INSTRUCTOR MAGNESIUM Routine 09/03/2018 4:52 AM RECRUIT INSTRUCTOR BASIC METABOLIC PANEL (7) Routine 09/03/2018 4:52 AM RECRUIT INSTRUCTOR PT/APTT Routine 09/03/2018 4:52 AM RECRUIT INSTRUCTOR CBC W/PLT COUNT & AUTO Routine 09/03/2018 DIFFERENTIAL 4:52 AM RECRUIT INSTRUCTOR BLOOD GAS, ARTERIAL Routine 09/03/2018 4:46 AM RECRUIT INSTRUCTOR POCT-GLUCOSE METER Routine 09/02/2018 11:45 PM RECRUIT INSTRUCTOR POCT-GLUCOSE METER Routine 09/02/2018 5:55 PM RECRUIT INSTRUCTOR CBC W/PLT COUNT & AUTO Routine 09/02/2018 DIFFERENTIAL 12:07 PM RECRUIT INSTRUCTOR CBC W/PLT COUNT & AUTO Routine 09/02/2018 DIFFERENTIAL 12:07 PM RECRUIT INSTRUCTOR POCT-GLUCOSE METER Routine 09/02/2018 11:44 AM RECRUIT INSTRUCTOR TRANSFUSE LEUKO-REDUCED Routine 09/02/2018 RED BLOOD CELLS 10:58 AM RECRUIT INSTRUCTOR TYPE AND SCREEN, STAT 09/02/2018 AUTOMATED 6:22 AM RECRUIT INSTRUCTOR POCT-GLUCOSE METER Routine 09/02/2018 6:21 AM RECRUIT INSTRUCTOR XR CHEST 1 VIEW Routine 09/02/2018 PORTABLE/BEDSIDE 4:30 AM RECRUIT INSTRUCTOR CBC W/PLT COUNT & AUTO Routine 09/02/2018 DIFFERENTIAL 2:21 AM RECRUIT INSTRUCTOR PHOSPHORUS Routine 09/02/2018 2:21 AM RECRUIT INSTRUCTOR MAGNESIUM Routine 09/02/2018 2:21 AM RECRUIT INSTRUCTOR BASIC METABOLIC PANEL (7) Routine 09/02/2018 2:21 AM RECRUIT INSTRUCTOR PT/APTT Routine 09/02/2018 2:21 AM RECRUIT INSTRUCTOR CBC W/PLT COUNT & AUTO Routine 09/02/2018 DIFFERENTIAL 2:21 AM RECRUIT INSTRUCTOR POCT-GLUCOSE METER Routine 09/02/2018 12:00 AM RECRUIT INSTRUCTOR XR ABDOMEN 1 VIEW STAT 09/01/2018 7:18 PM RECRUIT INSTRUCTOR POCT-GLUCOSE METER Routine 09/01/2018 6:13 PM RECRUIT INSTRUCTOR POCT-GLUCOSE METER Routine 09/01/2018 11:47 AM RECRUIT INSTRUCTOR POCT-GLUCOSE METER Routine 09/01/2018 6:22 AM RECRUIT INSTRUCTOR XR CHEST 1 VIEW Routine 09/01/2018 PORTABLE/BEDSIDE 4:06 AM RECRUIT INSTRUCTOR CBC W/PLT COUNT & AUTO Routine 09/01/2018 DIFFERENTIAL 4:03 AM RECRUIT INSTRUCTOR PHOSPHORUS Routine 09/01/2018 4:03 AM RECRUIT INSTRUCTOR MAGNESIUM Routine 09/01/2018 4:03 AM RECRUIT INSTRUCTOR BASIC METABOLIC PANEL (7) Routine 09/01/2018 4:03 AM RECRUIT INSTRUCTOR PT/APTT Routine 09/01/2018 4:03 AM RECRUIT INSTRUCTOR CBC W/PLT COUNT & AUTO Routine 09/01/2018 DIFFERENTIAL 4:03 AM RECRUIT INSTRUCTOR POCT-GLUCOSE METER Routine 09/01/2018 12:20 AM RECRUIT INSTRUCTOR ECHOCARDIOGRAM REPORT - 08/31/2018 SCAN 9:21 PM RECRUIT INSTRUCTOR POCT-GLUCOSE METER Routine 08/31/2018 6:55 PM RECRUIT INSTRUCTOR PHOSPHORUS Routine 08/31/2018 1:07 PM RECRUIT INSTRUCTOR MAGNESIUM Routine 08/31/2018 1:07 PM RECRUIT INSTRUCTOR BASIC METABOLIC PANEL (7) Routine 08/31/2018 1:07 PM RECRUIT INSTRUCTOR POCT-GLUCOSE METER Routine 08/31/2018 12:50 PM RECRUIT INSTRUCTOR 2D ECHO W/ DOPPLER STAT 08/31/2018 (CW/PW/COLOR) 11:58 AM RECRUIT INSTRUCTOR POCT-GLUCOSE METER Routine 08/31/2018 8:28 AM RECRUIT INSTRUCTOR POCT-GLUCOSE METER Routine 08/31/2018 6:14 AM RECRUIT INSTRUCTOR XR CHEST 1 VIEW Routine 08/31/2018 PORTABLE/BEDSIDE 4:45 AM RECRUIT INSTRUCTOR CBC W/PLT COUNT & AUTO Routine 08/31/2018 DIFFERENTIAL 3:40 AM RECRUIT INSTRUCTOR PHOSPHORUS Routine 08/31/2018 3:40 AM RECRUIT INSTRUCTOR MAGNESIUM Routine 08/31/2018 3:40 AM RECRUIT INSTRUCTOR BASIC METABOLIC PANEL (7) Routine 08/31/2018 3:40 AM RECRUIT INSTRUCTOR BLOOD GAS, VENOUS Routine 08/31/2018 3:40 AM RECRUIT INSTRUCTOR PT/APTT Routine 08/31/2018 3:40 AM RECRUIT INSTRUCTOR CBC W/PLT COUNT & AUTO Routine 08/31/2018 DIFFERENTIAL 3:40 AM RECRUIT INSTRUCTOR POCT-GLUCOSE METER Routine 08/31/2018 12:18 AM RECRUIT INSTRUCTOR TRANSFUSION SERVICE 08/30/2018 REPORT - SCAN 6:01 PM RECRUIT INSTRUCTOR POCT-GLUCOSE METER Routine 08/30/2018 5:22 PM RECRUIT INSTRUCTOR POCT-GLUCOSE METER Routine 08/30/2018 11:05 AM RECRUIT INSTRUCTOR POCT-GLUCOSE METER Routine 08/30/2018 5:38 AM RECRUIT INSTRUCTOR XR CHEST 1 VIEW Routine 08/30/2018 PORTABLE/BEDSIDE 4:54 AM RECRUIT INSTRUCTOR (CELLAVISION MANUAL DIFF) Routine 08/30/2018 3:52 AM RECRUIT INSTRUCTOR CBC W/PLT COUNT & AUTO Routine 08/30/2018 DIFFERENTIAL 3:52 AM RECRUIT INSTRUCTOR PHOSPHORUS Routine 08/30/2018 3:52 AM RECRUIT INSTRUCTOR MAGNESIUM Routine 08/30/2018 3:52 AM RECRUIT INSTRUCTOR BASIC METABOLIC PANEL (7) Routine 08/30/2018 3:52 AM RECRUIT INSTRUCTOR BLOOD GAS, VENOUS Routine 08/30/2018 3:52 AM RECRUIT INSTRUCTOR PT/APTT Routine 08/30/2018 3:52 AM RECRUIT INSTRUCTOR CBC W/PLT COUNT & AUTO Routine 08/30/2018 DIFFERENTIAL 3:52 AM RECRUIT INSTRUCTOR POCT-GLUCOSE METER Routine 08/30/2018 12:02 AM RECRUIT INSTRUCTOR PHOSPHORUS Routine 08/29/2018 9:04 PM RECRUIT INSTRUCTOR MAGNESIUM Routine 08/29/2018 9:04 PM RECRUIT INSTRUCTOR BASIC METABOLIC PANEL (7) Routine 08/29/2018 9:04 PM RECRUIT INSTRUCTOR POCT-GLUCOSE METER Routine 08/29/2018 5:55 PM RECRUIT INSTRUCTOR POCT-GLUCOSE METER Routine 08/29/2018 12:05 PM RECRUIT INSTRUCTOR XR CHEST 1 VIEW STAT 08/29/2018 PORTABLE/BEDSIDE 8:36 AM RECRUIT INSTRUCTOR POCT-GLUCOSE METER Routine 08/29/2018 6:21 AM RECRUIT INSTRUCTOR BLOOD GAS, VENOUS Routine 08/29/2018 4:09 AM RECRUIT INSTRUCTOR (CELLAVISION MANUAL DIFF) Routine 08/29/2018 4:08 AM RECRUIT INSTRUCTOR CBC W/PLT COUNT & AUTO Routine 08/29/2018 DIFFERENTIAL 4:08 AM RECRUIT INSTRUCTOR TYPE AND SCREEN, Routine 08/29/2018 AUTOMATED 4:08 AM RECRUIT INSTRUCTOR TRIGLYCERIDES Routine 08/29/2018 4:08 AM RECRUIT INSTRUCTOR CALCIUM, IONIZED Routine 08/29/2018 4:08 AM RECRUIT INSTRUCTOR PHOSPHORUS Routine 08/29/2018 4:08 AM RECRUIT INSTRUCTOR MAGNESIUM Routine 08/29/2018 4:08 AM RECRUIT INSTRUCTOR BASIC METABOLIC PANEL (7) Routine 08/29/2018 4:08 AM RECRUIT INSTRUCTOR PT/APTT Routine 08/29/2018 4:08 AM RECRUIT INSTRUCTOR CBC W/PLT COUNT & AUTO Routine 08/29/2018 DIFFERENTIAL 4:08 AM RECRUIT INSTRUCTOR POCT-GLUCOSE METER Routine 08/29/2018 12:21 AM RECRUIT INSTRUCTOR POCT-GLUCOSE METER Routine 08/28/2018 7:00 PM RECRUIT INSTRUCTOR POCT-GLUCOSE METER Routine 08/28/2018 12:16 PM RECRUIT INSTRUCTOR POCT-GLUCOSE METER Routine 08/28/2018 5:44 AM RECRUIT INSTRUCTOR (CELLAVISION MANUAL DIFF) Routine 08/28/2018 3:46 AM RECRUIT INSTRUCTOR CBC W/PLT COUNT & AUTO Routine 08/28/2018 DIFFERENTIAL 3:46 AM RECRUIT INSTRUCTOR BLOOD GAS, ARTERIAL Routine 08/28/2018 3:46 AM RECRUIT INSTRUCTOR PHOSPHORUS Routine 08/28/2018 3:46 AM RECRUIT INSTRUCTOR MAGNESIUM Routine 08/28/2018 3:46 AM RECRUIT INSTRUCTOR BASIC METABOLIC PANEL (7) Routine 08/28/2018 3:46 AM RECRUIT INSTRUCTOR PT/APTT Routine 08/28/2018 3:46 AM RECRUIT INSTRUCTOR CBC W/PLT COUNT & AUTO Routine 08/28/2018 DIFFERENTIAL 3:46 AM RECRUIT INSTRUCTOR XR CHEST 1 VIEW Routine 08/28/2018 PORTABLE/BEDSIDE 3:45 AM RECRUIT INSTRUCTOR POCT-GLUCOSE METER Routine 08/28/2018 12:10 AM RECRUIT INSTRUCTOR XR ABDOMEN 1 VIEW Routine 08/27/2018 6:47 PM RECRUIT INSTRUCTOR POCT-GLUCOSE METER Routine 08/27/2018 5:49 PM RECRUIT INSTRUCTOR PHOSPHORUS Routine 08/27/2018 2:32 PM RECRUIT INSTRUCTOR BASIC METABOLIC PANEL (7) Routine 08/27/2018 2:32 PM RECRUIT INSTRUCTOR POCT-GLUCOSE METER Routine 08/27/2018 11:58 AM RECRUIT INSTRUCTOR XR CHEST 1 VIEW Routine 08/27/2018 PORTABLE/BEDSIDE 5:51 AM RECRUIT INSTRUCTOR POCT-GLUCOSE METER Routine 08/27/2018 5:36 AM RECRUIT INSTRUCTOR (CELLAVISION MANUAL DIFF) Routine 08/27/2018 4:27 AM RECRUIT INSTRUCTOR CBC W/PLT COUNT & AUTO Routine 08/27/2018 DIFFERENTIAL 4:27 AM RECRUIT INSTRUCTOR BLOOD GAS, ARTERIAL Routine 08/27/2018 4:27 AM RECRUIT INSTRUCTOR PHOSPHORUS Routine 08/27/2018 4:27 AM RECRUIT INSTRUCTOR MAGNESIUM Routine 08/27/2018 4:27 AM RECRUIT INSTRUCTOR BASIC METABOLIC PANEL (7) Routine 08/27/2018 4:27 AM RECRUIT INSTRUCTOR PT/APTT Routine 08/27/2018 4:27 AM RECRUIT INSTRUCTOR CBC W/PLT COUNT & AUTO Routine 08/27/2018 DIFFERENTIAL 4:27 AM RECRUIT INSTRUCTOR POCT-GLUCOSE METER Routine 08/27/2018 12:39 AM RECRUIT INSTRUCTOR POCT-GLUCOSE METER Routine 2018 6:23 PM RECRUIT INSTRUCTOR POCT-GLUCOSE METER Routine 2018 12:07 PM RECRUIT INSTRUCTOR POCT-GLUCOSE METER Routine 2018 6:35 AM RECRUIT INSTRUCTOR BLOOD GAS, ARTERIAL Routine 2018 3:14 AM RECRUIT INSTRUCTOR CBC W/PLT COUNT & AUTO Routine 2018 DIFFERENTIAL 3:11 AM RECRUIT INSTRUCTOR PT/APTT Routine 2018 3:11 AM RECRUIT INSTRUCTOR CBC W/PLT COUNT & AUTO Routine 2018 DIFFERENTIAL 3:11 AM RECRUIT INSTRUCTOR XR CHEST 1 VIEW Routine 2018 PORTABLE/BEDSIDE 2:50 AM RECRUIT INSTRUCTOR POCT-GLUCOSE METER Routine 2018 12:14 AM RECRUIT INSTRUCTOR PHOSPHORUS Routine 08/25/2018 11:35 PM RECRUIT INSTRUCTOR MAGNESIUM Routine 08/25/2018 11:35 PM RECRUIT INSTRUCTOR BASIC METABOLIC PANEL (7) Routine 08/25/2018 11:35 PM RECRUIT INSTRUCTOR VANCOMYCIN LEVEL, TROUGH Timed 08/25/2018 9:14 PM RECRUIT INSTRUCTOR POCT-GLUCOSE METER Routine 08/25/2018 6:27 PM RECRUIT INSTRUCTOR URINALYSIS W/ REFLEX STAT 08/25/2018 URINE CULTURE 1:02 PM RECRUIT INSTRUCTOR SPUTUM CULTURE + GRAM STAT 08/25/2018 STAIN 1:02 PM RECRUIT INSTRUCTOR BLOOD CULTURE STAT 08/25/2018 1:01 PM RECRUIT INSTRUCTOR BLOOD CULTURE STAT 08/25/2018 1:01 PM RECRUIT INSTRUCTOR POCT-GLUCOSE METER Routine 08/25/2018 12:56 PM RECRUIT INSTRUCTOR BLOOD GAS, ARTERIAL STAT 08/25/2018 10:23 AM RECRUIT INSTRUCTOR POCT-GLUCOSE METER Routine 08/25/2018 7:51 AM RECRUIT INSTRUCTOR POCT-GLUCOSE METER Routine 08/25/2018 5:35 AM RECRUIT INSTRUCTOR CBC W/PLT COUNT & AUTO Routine 08/25/2018 DIFFERENTIAL 3:45 AM RECRUIT INSTRUCTOR BLOOD GAS, ARTERIAL Routine 08/25/2018 3:45 AM RECRUIT INSTRUCTOR PHOSPHORUS Routine 08/25/2018 3:45 AM RECRUIT INSTRUCTOR MAGNESIUM Routine 08/25/2018 3:45 AM RECRUIT INSTRUCTOR BASIC METABOLIC PANEL (7) Routine 08/25/2018 3:45 AM RECRUIT INSTRUCTOR PT/APTT Routine 08/25/2018 3:45 AM RECRUIT INSTRUCTOR CBC W/PLT COUNT & AUTO Routine 08/25/2018 DIFFERENTIAL 3:45 AM RECRUIT INSTRUCTOR XR CHEST 1 VIEW Routine 08/25/2018 PORTABLE/BEDSIDE 3:25 AM RECRUIT INSTRUCTOR BLOOD GAS, ARTERIAL Routine 08/25/2018 2:07 AM RECRUIT INSTRUCTOR POCT-GLUCOSE METER Routine 08/24/2018 11:52 PM RECRUIT INSTRUCTOR POCT-GLUCOSE METER Routine 08/24/2018 5:42 PM RECRUIT INSTRUCTOR POCT-GLUCOSE METER Routine 08/24/2018 11:44 AM RECRUIT INSTRUCTOR VANCOMYCIN LEVEL, TROUGH Timed 08/24/2018 8:13 AM RECRUIT INSTRUCTOR POCT-GLUCOSE METER Routine 08/24/2018 6:05 AM RECRUIT INSTRUCTOR XR CHEST 1 VIEW Routine 08/24/2018 PORTABLE/BEDSIDE 4:43 AM RECRUIT INSTRUCTOR BLOOD GAS, ARTERIAL Routine 08/24/2018 4:10 AM RECRUIT INSTRUCTOR (CELLAVISION MANUAL DIFF) Routine 08/24/2018 4:04 AM RECRUIT INSTRUCTOR CBC W/PLT COUNT & AUTO Routine 08/24/2018 DIFFERENTIAL 4:04 AM RECRUIT INSTRUCTOR PHOSPHORUS Routine 08/24/2018 4:04 AM RECRUIT INSTRUCTOR MAGNESIUM Routine 08/24/2018 4:04 AM RECRUIT INSTRUCTOR BASIC METABOLIC PANEL (7) Routine 08/24/2018 4:04 AM RECRUIT INSTRUCTOR PT/APTT Routine 08/24/2018 4:04 AM RECRUIT INSTRUCTOR CBC W/PLT COUNT & AUTO Routine 08/24/2018 DIFFERENTIAL 4:04 AM RECRUIT INSTRUCTOR POCT-GLUCOSE METER Routine 08/24/2018 12:08 AM RECRUIT INSTRUCTOR TRANSFUSION SERVICE 08/23/2018 REPORT - SCAN 6:01 PM RECRUIT INSTRUCTOR POCT-GLUCOSE METER Routine 08/23/2018 6:01 PM RECRUIT INSTRUCTOR BLOOD GAS, ARTERIAL Routine 08/23/2018 5:15 PM RECRUIT INSTRUCTOR PHOSPHORUS Routine 08/23/2018 1:14 PM RECRUIT INSTRUCTOR MAGNESIUM Routine 08/23/2018 1:14 PM RECRUIT INSTRUCTOR BASIC METABOLIC PANEL (7) Routine 08/23/2018 1:14 PM RECRUIT INSTRUCTOR POCT-GLUCOSE METER Routine 08/23/2018 12:06 PM RECRUIT INSTRUCTOR XR CHEST 1 VIEW Routine 08/23/2018 PORTABLE/BEDSIDE 6:53 AM RECRUIT INSTRUCTOR POCT-GLUCOSE METER Routine 08/23/2018 6:32 AM RECRUIT INSTRUCTOR CBC W/PLT COUNT & AUTO Routine 08/23/2018 DIFFERENTIAL 3:26 AM RECRUIT INSTRUCTOR BLOOD GAS, ARTERIAL Routine 08/23/2018 3:26 AM RECRUIT INSTRUCTOR PHOSPHORUS Routine 08/23/2018 3:26 AM RECRUIT INSTRUCTOR MAGNESIUM Routine 08/23/2018 3:26 AM RECRUIT INSTRUCTOR BASIC METABOLIC PANEL (7) Routine 08/23/2018 3:26 AM RECRUIT INSTRUCTOR PT/APTT Routine 08/23/2018 3:26 AM RECRUIT INSTRUCTOR CBC W/PLT COUNT & AUTO Routine 08/23/2018 DIFFERENTIAL 3:26 AM RECRUIT INSTRUCTOR POCT-GLUCOSE METER Routine 08/23/2018 1:54 AM RECRUIT INSTRUCTOR POCT-GLUCOSE METER Routine 08/23/2018 12:34 AM RECRUIT INSTRUCTOR BLOOD GAS, ARTERIAL Routine 08/23/2018 12:19 AM RECRUIT INSTRUCTOR BLOOD GAS, ARTERIAL Routine 08/22/2018 8:16 PM RECRUIT INSTRUCTOR PHOSPHORUS Routine 08/22/2018 8:16 PM RECRUIT INSTRUCTOR MAGNESIUM Routine 08/22/2018 8:16 PM RECRUIT INSTRUCTOR CBC (HEMOGRAM ONLY) Routine 08/22/2018 8:16 PM RECRUIT INSTRUCTOR BASIC METABOLIC PANEL (7) Routine 08/22/2018 8:16 PM RECRUIT INSTRUCTOR POCT-GLUCOSE METER Routine 08/22/2018 6:55 PM RECRUIT INSTRUCTOR PREPARE LEUKO-REDUCED RBC STAT 08/22/2018 5:18 PM RECRUIT INSTRUCTOR SURGICALLY OBTAINED Routine 08/22/2018 CULTURE + GRAM STAIN 5:11 PM RECRUIT INSTRUCTOR ANAEROBIC CULTURE Routine 08/22/2018 5:11 PM RECRUIT INSTRUCTOR HGB/HCT (H&H) - STAT LAB STAT 08/22/2018 5:05 PM RECRUIT INSTRUCTOR GLUCOSE-STAT LAB STAT 08/22/2018 5:05 PM RECRUIT INSTRUCTOR POTASSIUM-STAT LAB STAT 08/22/2018 5:05 PM RECRUIT INSTRUCTOR SODIUM NA-STAT LAB STAT 08/22/2018 5:05 PM RECRUIT INSTRUCTOR BLOOD GAS, ARTERIAL STAT 08/22/2018 5:05 PM RECRUIT INSTRUCTOR CALCIUM, IONIZED STAT 08/22/2018 5:05 PM RECRUIT INSTRUCTOR RRL CRITICAL LABS STAT 08/22/2018 (ABG,NA,K,H&H,GLUCOSE) 5:05 PM RECRUIT INSTRUCTOR ABORH, MANUAL STAT 08/22/2018 4:15 PM RECRUIT INSTRUCTOR TYPE AND SCREEN, STAT 08/22/2018 AUTOMATED 4:[address] ABDOMEN/PELVIS WITH IV STAT 08/22/2018 CONTRAST 3:03 PM RECRUIT INSTRUCTOR CREATION,ILEOSTOMY 08/22/2018 Bowel and bladder 2:25 PM RECRUIT INSTRUCTOR incontinence Special Needs REQ 1400 LAPAROTOMY,EXPLORATORY 08/22/2018 Bowel and bladder 2:25 PM RECRUIT INSTRUCTOR incontinence Special Needs REQ 1400 (CELLAVISION MANUAL DIFF) Routine 08/22/2018 1:55 PM RECRUIT INSTRUCTOR CBC W/PLT COUNT & AUTO Routine 08/22/2018 DIFFERENTIAL 1:55 PM RECRUIT INSTRUCTOR PHOSPHORUS Routine 08/22/2018 1:55 PM RECRUIT INSTRUCTOR MAGNESIUM Routine 08/22/2018 1:55 PM RECRUIT INSTRUCTOR BASIC METABOLIC PANEL (7) Routine 08/22/2018 1:55 PM RECRUIT INSTRUCTOR CBC W/PLT COUNT & AUTO Routine 08/22/2018 DIFFERENTIAL 1:55 PM RECRUIT INSTRUCTOR POCT-GLUCOSE METER Routine 08/22/2018 1:53 PM RECRUIT INSTRUCTOR BLOOD GAS, ARTERIAL STAT 08/22/2018 1:50 PM RECRUIT INSTRUCTOR POCT-GLUCOSE METER Routine 08/22/2018 12:56 PM RECRUIT INSTRUCTOR URINALYSIS W/ REFLEX STAT 08/22/2018 URINE CULTURE 11:21 AM RECRUIT INSTRUCTOR POCT-GLUCOSE METER Routine 08/22/2018 10:46 AM RECRUIT INSTRUCTOR XR CHEST 1 VIEW STAT 08/22/2018 PORTABLE/BEDSIDE 9:25 AM RECRUIT INSTRUCTOR XR ABDOMEN 1 VIEW STAT 08/22/2018 9:25 AM RECRUIT INSTRUCTOR BLOOD GAS, ARTERIAL STAT 08/22/2018 8:22 AM RECRUIT INSTRUCTOR XR CHEST 1 VIEW STAT 08/22/2018 PORTABLE/BEDSIDE 3:44 AM RECRUIT INSTRUCTOR ECG 12-LEAD Routine 08/22/2018 3:31 AM RECRUIT INSTRUCTOR ECG 12-LEAD Routine 08/22/2018 3:31 AM RECRUIT INSTRUCTOR Procedure Note - Interface, External Ris In - 08/22/2018 6:23 PM RECRUIT INSTRUCTOR Ventricula r Rate 108 BPM Atrial Rate 108 BPM P-R Interval 146 ms QRS Duration 104 ms Q-T Interval 344 ms QTC Calculatio n(Bazett) 460 ms P [place] 62 degrees R [place] 62 degrees T [place] 25 degrees Sinus tachycardi a Possible Inferior infarct , age undetermin ed Abnormal ECG No previous ECGs available BLOOD GAS, ARTERIAL Routine 08/22/2018 3:19 AM RECRUIT INSTRUCTOR BLOOD CULTURE Routine 08/22/2018 3:06 AM RECRUIT INSTRUCTOR LACTIC ACID, VENOUS Routine 08/22/2018 3:04 AM RECRUIT INSTRUCTOR CBC W/PLT COUNT & AUTO Routine 08/22/2018 DIFFERENTIAL 2:48 AM RECRUIT INSTRUCTOR PHOSPHORUS Routine 08/22/2018 2:48 AM RECRUIT INSTRUCTOR MAGNESIUM STAT 08/22/2018 2:48 AM RECRUIT INSTRUCTOR COMPREHENSIVE METABOLIC Routine 08/22/2018 PANEL 2:48 AM RECRUIT INSTRUCTOR PT/APTT Routine 08/22/2018 2:48 AM RECRUIT INSTRUCTOR CBC W/PLT COUNT & AUTO Routine 08/22/2018 DIFFERENTIAL 2:48 AM RECRUIT INSTRUCTOR BLOOD CULTURE Routine 08/22/2018 2:47 AM RECRUIT INSTRUCTOR after 10/25/2017 Results * RHYTHM STRIP - SCAN (10/12/2018 7:30 PM CDT) Only the most recent of 2 results within the time period is included. Narrative Performed At * POC-Glucose meter (09/26/2018 12:02 PM CDT) Only the most recent of 151 results within the time period is included. POC-Glucose Meter 128 (H)Comment: TESTED AT 70 - 110 mg/dL [facility] [address] [facility] [id number] Specimen Blood Performing Organization Address City/State/Zipcode Phone Number [place] [phone] [place] [address] [facility] * XR chest 1 view portable/bedside (09/26/2018 7:34 AM CDT) Only the most recent of 37 results within the time period is included. Narrative Performed At FINAL REPORT [facility] Chest one view. Clinical history: evaluation of pulmonary edema Comparison: 09/25/2018 Discussion: A frontal chest is provided. The cardiac and mediastinal contours are unremarkable allowing for portable technique. There is no pneumothorax, javed pulmonary edema, consolidation or significant pleural effusion. The bony structures are unremarkable. Signed: Josefa Dickey MD Report Verified Date/Time:09/26/2018 08:13:08 Reading Location: [facility] Radiology Reading Room Procedure Note Interface, External [...] Protime 14.8 (H) 11.7 - 14.7 seconds [facility] INR 1.2 <=5.9 [facility] PTT 49.5 (H) 22.5 - 36.0 seconds [facility] Specimen Blood Narrative Performed At RECOMMENDED COUMADIN/WARFARIN INR THERAPY RANGES [facility] STANDARD DOSE: 2.0 - 3.0 Includes: PROPHYLAXIS for venous thrombosis, [facility] systemic embolization; TREATMENT for venous thrombosis and/or pulmonary embolus. HIGH RISK: Target INR is 2.5-3.5 for patients with mechanical heart valves. Performing Organization Address City/[facility] Phone Number [place] [phone] [place] [address] [facility] * CBC with platelet count + automated diff (09/26/2018 5:32 AM CDT) Only the most recent of 40 results within the time period is included. WBC 13.7 (H) 3.5 - 10.5 K/L [facility] RBC 4.50 3.93 - 5.22 M/L [facility] Hemoglobin 10.6 (L) 11.2 - 15.7 GM/DL [facility] Hematocrit 35.2 34.1 - 44.9 % [facility] MCV 78.2 (L) 79.4 - 94.8 fL [facility] MCH 23.6 (L) 25.6 - 32.2 pg [facility] MCHC 30.1 (L) 32.2 - 35.5 GM/DL [facility] RDW 20.1 (H) 11.7 - 14.4 % [facility] Platelets 531 (H) 150 - 450 K/CU MM [facility] MPV 9.5 9.4 - 12.3 fL [facility] nRBC 0 0 - 0 /100 WBC [facility] % Neutros 72 % [facility] % Lymphs 17 % [facility] % Monos 7 % [facility] % Eos 2 % [facility] % Baso 1 % [facility] # Neutros 9.91 (H) 1.56 - 6.13 K/L [facility] # Lymphs 2.35 1.18 - 3.74 K/L [facility] # Monos 0.99 (H) 0.24 - 0.36 K/L [facility] # Eos 0.25 0.04 - 0.36 K/L [facility] # Baso 0.07 0.01 - 0.08 K/L [facility] Immature 1 0 - 1 % [facility] Granulocytes-[facility] Specimen Blood Performing Organization Address City/State/Zipcode Phone Number [facility] [address] [place] [address] [facility] * Phosphorus (09/26/2018 5:32 AM CDT) Only the most recent of 42 results within the time period is included. Phosphorus 2.6 2.3 - 4.7 mg/dL [facility] Specimen Blood Performing Organization Address City/State/Zipcode Phone Number [facility] [address] [place] [address] [facility] * Magnesium (09/26/2018 5:32 AM CDT) Only the most recent of 41 results within the time period is included. Magnesium 1.7 1.6 - 2.6 mg/dL [facility] Specimen Blood Performing Organization Address City/[facility]/Zipcode Phone Number [place] [phone] [place] [address] [facility] * Basic Metabolic Panel (09/26/2018 5:32 AM CDT) Only the most recent of 44 results within the time period is included. Sodium 133 (L) 136 - 145 meq/L [facility] Potassium 3.5 3.5 - 5.1 meq/L [facility] Chloride 95 (L) 98 - 107 meq/L [facility] CO2 26 22 - 29 meq/L [facility] BUN 14 7 - 21 mg/dL [facility] Creatinine 0.70 0.57 - 1.25 mg/dL [facility] Glucose 89 70 - 105 mg/dL [facility] Calcium 12.1 (H) 8.4 - 10.2 mg/dL [facility] EGFR 86Comment: ESTIMATED GFR IS mL/min/1.73 sq m [facility] NOT ACCURATE CREATININE [facility] CLEARANCE IN PREDICTING GLOMERULAR FILTRATION RATE. ESTIMATED GFR IS NOT APPLICABLE FOR DIALYSIS PATIENTS. Specimen Blood Performing Organization Address City/[facility]/Zipcode Phone Number [address] [address] [phone] [place] [address] * Urinalysis w/Microscopic + Reflex to Culture (09/23/2018 11:48 AM CDT) Only the most recent of 3 results within the time period is included. Color, UA Yellow [facility] Clarity, UA Hazy [facility] Specific [place], UA 1.014 1.001 - 1.035 [facility] pH, UA 6.0 5.0 - 8.0 [facility] Protein, UA 70 mg/dL (A) Negative [facility] Glucose, UA Negative Negative [facility] Ketones, UA Negative Negative [facility] Bilirubin, UA Negative Negative [facility] Blood, UA Large (A) Negative [facility] Nitrite, UA Negative Negative [facility] Leukocytes, UA Large (A) Negative [facility] Urobilinogen, UA 0.2 0.2 - 1.0 mg/dL [facility] RBC, UA 251 /HPF [facility] WBC, UA 87 /HPF [facility] Bacteria, UA Rare [facility] Squam Epithel, UA <1 /HPF [facility] Specimen Source [facility] Specimen Urine - Urine, Voided Performing Organization Address City/State/Zipcode Phone Number [facility] [address] [place] [address] [facility] * Urine culture (09/23/2018 11:48 AM CDT) Only the most recent of 2 results within the time period is included. Result No growth [facility] Specimen Urine - Urine, Voided Performing Organization Address City/[facility]/Zipcode Phone Number [facility] [address] [place] [address] [facility] * [employer] Business Analyst in [place] 30 minute increments (09/18/2018 9:15 [...] AM CDT) Narrative Performed At FINAL REPORT [facility] Renal ultrasound, 09/18/2018 Grayscale and limited Doppler [...] MD Report Verified Date/Time:09/18/2018 12:06:53 Reading Location: [address] Ultrasound Reading Room Procedure Note Interface, [...] Report Verified Date/Time: 09/18/2018 12:06:53 Reading Location: [facility] [id number] Ultrasound Reading Room Performing Organization Address City/State/Zipcode Phone Number [facility] * Comprehensive metabolic panel (09/16/2018 4:03 AM RECRUIT INSTRUCTOR) Only the most recent of 2 results within the time period is included. Protein, Total 6.3 6.0 - 8.3 gm/dL [facility] Albumin 3.0 (L) 3.5 - 5.0 g/dL [facility] Alkaline Phosphatase 64 40 - 150 U/L [facility] Total Bilirubin 0.2 0.2 - 1.2 mg/dL [facility] Sodium 135 (L) 136 - 145 meq/L [facility] Potassium 4.0 3.5 - 5.1 meq/L [facility] Chloride 98 98 - 107 meq/L [facility] CO2 28 22 - 29 meq/L [facility] BUN 22 (H) 7 - 21 mg/dL [facility] Creatinine 1.60 (H) 0.57 - 1.25 mg/dL [facility] Glucose 99 70 - 105 mg/dL [facility] Calcium 10.1 8.4 - 10.2 mg/dL [facility] AST 12 5 - 34 U/L [facility] ALT <6 (L) 6 - 55 U/L [facility] EGFR 33Comment: ESTIMATED GFR IS mL/min/1.73 sq m [facility] NOT ACCURATE CREATININE [facility] CLEARANCE IN PREDICTING GLOMERULAR FILTRATION RATE. ESTIMATED GFR IS NOT APPLICABLE FOR DIALYSIS PATIENTS. Specimen Blood Performing Organization Address City/State/Zipcode Phone Number [facility] [address] [place] [address] [facility] * CT drainage abdominal (09/15/2018 4:54 PM RECRUIT INSTRUCTOR) Narrative Performed At FINAL REPORT [facility] PROCEDURE: Pelvic abscess drainage. Dose modulation, iterative [...] Successful placement of a right pelvic 8 [place] drainage catheter with aspiration of 30 mL of purulent fluid. Signed: Kaleb Carrion MD Report Verified Date/Time:09/15/2018 20:12:36 Reading Location: [facility] B1 C013Y CT Body Reading Room Procedure Note Interface, External Ris In - 09/15/2018 8:14 PM RECRUIT INSTRUCTOR FINAL REPORT PROCEDURE: Pelvic abscess drainage. Dose [...] Successful placement of a right pelvic 8 [place] drainage catheter with aspiration of 30 mL of purulent fluid. Signed: Kaleb Carrion MD Report Verified Date/Time: 09/15/2018 20:12:36 Reading Location: [facility] B1 C013Y CT Body Reading Room Performing Organization Address City/State/Zipcode Phone Number [facility] * Body fluid culture + gram stain (09/15/2018 4:44 PM RECRUIT INSTRUCTOR) Result ENTEROBACTER CLOACAE COMPLEX [facility] (A) [facility] Result ESCHERICHIA COLI (A) [facility] Gram Stain Result 2+ WBCs [facility] Gram Stain Result <1+ gram positive rods [facility] Specimen Body Fluid - Abdomen, Right Antibiotic [...] coli Performing Organization Address City/State/Zipcode Phone Number [facility] [address] [place] [address] [facility] * CT abdomen/pelvis without iv contrast (09/15/2018 12:34 PM RECRUIT INSTRUCTOR) Narrative Performed At FINAL REPORT [facility] TECHNIQUE: CT of the abdomen and pelvis [...] MD Report Verified Date/Time:09/15/2018 13:36:13 Reading Location: [address] Body Reading Room Procedure Note Interface, External Ris In - 09/15/2018 1:38 PM RECRUIT INSTRUCTOR FINAL REPORT TECHNIQUE: CT of the abdomen [...] Report Verified Date/Time: 09/15/2018 13:36:13 Reading Location: [facility] B1 C013Y CT Body Reading Room Performing Organization Address City/[facility]/Zipcode Phone Number [facility] * Urea Nitrogen, random urine (09/15/2018 8:59 AM RECRUIT INSTRUCTOR) Urea Nitrogen, Ur 122 mg/dL [facility] Specimen Urine - Urine, Voided Narrative Performed At Reference Range: No Normals [facility] Performing Organization Address City/[facility]/Zipcode Phone Number [facility] [address] [place] [address] [facility] * Sodium, random urine (09/15/2018 8:59 AM RECRUIT INSTRUCTOR) Sodium Urine 114 meq/L [facility] Specimen Urine - Urine, Voided Narrative Performed At Reference Range: No Normals [facility] Performing Organization Address City/[facility]/Zipcode Phone Number [address] * Creatinine, random urine (09/15/2018 8:59 AM RECRUIT INSTRUCTOR) Creatinine, Ur 18.3 mg/dL [facility] Specimen Urine - Urine, Voided Narrative Performed At Reference Range: No Normals [facility] Performing Organization Address City/[facility]/Zipcode Phone Number [address] * Urinalysis w/Microscopic (09/15/2018 8:59 AM RECRUIT INSTRUCTOR) Color, UA Yellow [facility] Clarity, UA Clear [facility] Specific [place], UA 1.007 1.001 - 1.035 [facility] pH, UA 7.5 5.0 - 8.0 [facility] Protein, UA 20 mg/dL (A) Negative [facility] Glucose, UA Negative Negative [facility] Ketones, UA Negative Negative [facility] Bilirubin, UA Negative Negative [facility] Blood, UA Moderate (A) Negative [facility] Nitrite, UA Negative Negative [facility] Leukocytes, UA Moderate (A) Negative [facility] Urobilinogen, UA 0.2 0.2 - 1.0 mg/dL [facility] RBC, UA 12 /HPF [facility] WBC, UA 11 /HPF [facility] Bacteria, UA Rare [facility] Crystals, Urine Rare [facility] Specimen Source Urine, Voided [facility] Specimen Urine - Urine, Voided Performing Organization Address City/[facility]/Zipcode Phone Number [facility] [address] [place] [address] [facility] * Prealbumin (09/14/2018 3:04 PM RECRUIT INSTRUCTOR) Prealbumin 15Comment: Specimen slightly 14 - 45 mg/dL [facility] hemolyzed [facility] Specimen Blood - Arm, Left Performing Organization Address [facility]/Zipcode Phone Number [facility] [address] [place] [address] [facility] * Hemoglobin A1c (09/13/2018 5:29 AM RECRUIT INSTRUCTOR) Hemoglobin A1C 6.1 4.3 - 6.1 % [facility] Specimen Blood Performing Organization Address [facility] Phone Number [facility] [address] [place] [address] * CT abdomen/pelvis with IV contrast (09/11/2018 10:32 AM RECRUIT INSTRUCTOR) Only the most recent of 3 results within the time period is included. Narrative Performed At FINAL REPORT [facility] CT abdomen and pelvis with contrast History: [...] MD Report Verified Date/Time:09/11/2018 10:48:56 Reading Location: [facility] Diagnostic Imaging Reading Room - [place] [id number] Procedure Note Interface, External Ris In - 09/11/2018 10:51 AM RECRUIT INSTRUCTOR FINAL REPORT CT abdomen and pelvis with [...] Report Verified Date/Time: 09/11/2018 10:48:56 Reading Location: [facility] Diagnostic Imaging Reading Room - [place] [address] Performing Organization Address City/State/Zipcode Phone Number [facility] * TRANSFUSION SERVICE REPORT - SCAN (09/04/2018 6:01 PM RECRUIT INSTRUCTOR) Only the most recent of 4 results within the time period is included. Narrative Performed At * Prepare Leuko-Red RBC (09/03/2018 11:54 PM RECRUIT INSTRUCTOR) Only the most recent of 2 results within the time period is included. CROSSMATCH COMPATIBLE [place] Unit ABO A Pos [place] UNIT NUMBER [id number] [place] Status TX_TIMEINCHART [facility] Blood Bank Product RED BLOOD CELLS [place] PRODUCT CODE [id number] [place] Specimen Other Performing Organization Address City/[facility] Phone Number [place] * Blood gas, arterial (09/03/2018 4:46 AM RECRUIT INSTRUCTOR) Only the most recent of 16 results within the time period is included. pH, Arterial 7.52 (H) 7.35 - 7.45 [facility] pCO2, Arterial 43 35 - 45 mmHg [facility] pO2, Arterial 93 (H) 80 - 90 mmHg [facility] O2 Sat, Arterial 97.6 (H) 96.0 - 97.0 % [facility] HCO3, Arterial 34 (H) 21 - 29 mmol/L [facility] Base Excess, Arterial 10.5 (H) -2.0 - 3.0 mmol/L [facility] Patient Temperature 37.5 C [facility] FIO2 55.0 % [facility] Specimen Blood, Arterial - Arm, Right Performing Organization Address City/State/Zipcode Phone Number [facility] [address] [place] [address] [phone] [place] [address] * Transfuse Leuko-Red RBC (09/02/2018 10:58 AM RECRUIT INSTRUCTOR) Only the most recent of 2 results within the time period is included. * Type and screen, automated (09/02/2018 6:22 AM RECRUIT INSTRUCTOR) Only the most recent of 3 results within the time period is included. ABO/RH AUTOMATED (BEAKER) A POSITIVE [facility] Ab Scrn NEGATIVE [facility] Specimen Blood Performing Organization Address City/[facility]/[place] [address] [phone] * XR abdomen / KUB 1 view (09/01/2018 7:18 PM RECRUIT INSTRUCTOR) Only the most recent of 3 results within the time period is included. Narrative Performed At FINAL REPORT [facility] TECHNIQUE: Single View of the Abdomen. INDICATION: [...] setting. Small right pleural effusion. Signed: Kaleb Carrino MD Report Verified Date/Time:09/01/2018 20:11:49 Reading Location: [facility] B1 C013W Consult Reading Room Procedure Note Interface, External Ris In - 09/01/2018 8:13 PM RECRUIT INSTRUCTOR FINAL REPORT TECHNIQUE: Single View of the [...] Report Verified Date/Time: 09/01/2018 20:11:49 Reading Location: [facility] B1 C013W Consult Reading Room Performing Organization Address City/State/Zipcode Phone Number GE RIS * ECHOCARDIOGRAM REPORT - SCAN (08/31/2018 9:21 PM RECRUIT INSTRUCTOR) Narrative Performed At * 2D Echo W/Doppler(CW/PW/Color) (08/31/2018 11:58 AM RECRUIT INSTRUCTOR) Ejection Fraction [facility] Narrative Performed At Transthoracic Echocardiography Report (TTE) [facility]CHO [facility]ART[facility] Demographics [facility]out[facility] Patient Name CHARITY,Date of Study 08/31/2018 LEONARDA [id number] Female Visit Number [id number] Room Number 6A11 Number Date of Birth1960Referring Physician Julieth Martinez Age58 year(s)Soa Architect Ladonna Rahman, [facility] AnalystAlex Physician ODILIA Cowart Procedure Type of [...] External Ris In - 08/31/2018 2:52 PM RECRUIT INSTRUCTOR Transthoracic Echocardiography Report (TTE) Demographics Patient Name CHARITY, Date of Study 08/31/2018 LEONARDA Gender Female Visit Number [id number] Race Room Number 6A11 Number Date of 1960 Referring Physician Julieth Martinez Age 58 year(s) Soa Architect Ladonna Rahman, [facility] Retail Account Executive Bob Kidd Interpreting Physician ODILIA Ryan Procedure [...] City/State/Zipcode Phone Number [facility] * Blood gas, venous (08/31/2018 3:40 AM RECRUIT INSTRUCTOR) Only the most recent of 3 results within the time period is included. pH, Merlin 7.49 (H) 7.32 - 7.42 [facility] pCO2, Merlin 53 (H) 41 - 51 mmHg [facility] pO2, Merlin 39 25 - 40 mmHg [facility] O2 Sat, Merlin 77.9 (H) 40.0 - 70.0 % [facility] HCO3, Merlin 39 (H) 21 - 29 mmol/L [facility] Base Excess, Merlin 13.9 (H) -2.0 - 3.0 mmol/L [facility] Patient Temperature 36.5 C [facility] FIO2 100.0 % [facility] Specimen Blood - Central Venous Line Performing Organization Address City/State/Zipcode Phone Number [facility] [address] [place] [address] MEDICAL [facility]ENTER * Manual Differential (08/30/2018 3:52 AM RECRUIT INSTRUCTOR) Only the most recent of 6 results within the time period is included. % Neutros 86 % [facility] % Lymphs 4 % [facility] % Monos 5 % [facility] % Eos 3 % [facility] % Bands 2 0 - 10 % [facility] # Neutros 20.47 (H) 1.56 - 6.13 K/ul [facility] # Lymphs 0.95 (L) 1.18 - 3.74 K/ul [facility] # Monos 1.19 (H) 0.24 - 0.36 K/uL [facility] # Eos 0.71 (H) 0.04 - 0.36 K/uL [facility] # Bands 0.48 0.00 - 0.80 K/uL [facility] Total Counted 100 [facility] nRBC (manual) 1 (H) 0 - 0 /100 WBC [facility] WBC Morphology Normal [facility] Platelet Morphology Normal [facility] Hypochromia 1+ few [facility] Anisocytosis 2+ moderate [facility] Microcytes 2+ moderate [facility] Artifact Present [facility] Platelet Conc Increased [facility] Specimen Blood - Arm, Left Narrative Performed At Received comment: [facility] User comments: [facility] Slide comments: Performing Organization Address City/[facility] Centercode Phone Number [address] [address] [facility] * Calcium, Ionized (08/29/2018 4:08 AM RECRUIT INSTRUCTOR) Only the most recent of 2 results within the time period is included. Calcium, Ion 1.32 (H) 1.12 - 1.27 mmol/L [facility] pH, Blood 7.42 [facility] Specimen Blood - Arm, Right Performing Organization Address [facility] Centercoin Phone Number [address] [address] [facility] * Triglycerides (08/29/2018 4:08 AM RECRUIT INSTRUCTOR) Triglycerides 98 mg/dL [facility] Specimen Blood - Arm, Right Narrative Performed At TRIGLYCERIDE REFERENCE RANGE [facility] Low Risk<150 [facility] Borderline Risk 150-199 High [id number] Very High Risk >=500 Performing Organization Address City/[facility] Centercode Phone Number [address] [address] [facility] * Vancomycin level, trough (08/25/2018 9:14 PM RECRUIT INSTRUCTOR) Only the most recent of 2 results within the time period is included. Vancomycin Tr 16.9 10.0 - 20.0 ug/mL [facility] Specimen Blood - Line, Arterial Performing Organization Address City/[facility]/Zipcode Phone Number [address] [address] [facility] * Sputum Culture + Gram Stain (08/25/2018 1:02 PM RECRUIT INSTRUCTOR) Result See comment [facility] Gram Stain Result 2+ White blood cells seen [facility] Gram Stain Result 0-5 epithelial cells [facility] Gram Stain Result 2+ yeast [facility] Specimen Sputum - Endotracheal Narrative Performed At 4+ yeast [facility] Performing Organization Address City/[facility] [place] [address] [facility] * Blood culture (08/25/2018 1:01 PM RECRUIT INSTRUCTOR) Only the most recent of 4 results within the time period is included. Result No growth in 5 days [facility] Specimen Blood - Line, Venous Performing Organization Address City/[facility] Centercode Phone Number [address] [address] [facility] * CBC (Hemogram only) (08/22/2018 8:16 PM RECRUIT INSTRUCTOR) WBC 11.3 (H) 3.5 - 10.5 K/L [facility] RBC 3.98 3.93 - 5.22 M/L [facility] Hemoglobin 9.6 (L) 11.2 - 15.7 GM/DL [facility] Hematocrit 32.2 (L) 34.1 - 44.9 % [facility] MCV 80.9 79.4 - 94.8 fL [facility] MCH 24.1 (L) 25.6 - 32.2 pg [facility] MCHC 29.8 (L) 32.2 - 35.5 GM/DL [facility] RDW 16.7 (H) 11.7 - 14.4 % [facility] Platelets 525 (H) 150 - 450 K/CU MM [facility] MPV 10.1 9.4 - 12.3 fL [facility] nRBC 0 0 - 0 /100 WBC [facility] Specimen Blood Performing Organization Address City/[facility] Centercode Phone Number [address] [address] [facility] * Anaerobic culture (08/22/2018 5:11 PM RECRUIT INSTRUCTOR) Result BACTEROIDES THETAIOTAOMICRON [facility] () [facility] Result ANAEROBIC GRAM-POSITIVE [facility] BACILLUS (A)Comment: No [facility] further workup performed Specimen Other - Abdomen Performing Organization Address City/[facility] Centercode Phone Number [address] [address] [facility] * Surgically obtained culture + gram stain (08/22/2018 5:11 PM RECRUIT INSTRUCTOR) Result ENTEROBACTER CLOACAE COMPLEX [facility] () [facility] Result ESCHERICHIA COLI (A) [facility] Result HELIO ALBICANS (A) [facility] Gram Stain Result 3+ WBCs [facility] Gram Stain Result 1+ gram positive rods [facility] Gram Stain Result <1+ budding yeast [facility] Specimen Tissue - Abdomen Antibiotic Method Susceptibility [...] <=20: Susceptible Escherichia coli Performing Organization Address [facility] Phone Number [address] * Potassium-Stat Lab (08/22/2018 5:05 PM RECRUIT INSTRUCTOR) Potassium 4.3 3.6 - 5.5 meq/L [facility] Specimen Blood, Arterial Performing Organization Address [facility] Phone Number [address] * Sodium Na-Stat Lab (08/22/2018 5:05 PM RECRUIT INSTRUCTOR) Sodium 134 (L) 135 - 148 meq/L [facility] Specimen Blood, Arterial Performing Organization Address [facility] Phone Number [address] * Glucose-Stat Lab (08/22/2018 5:05 PM RECRUIT INSTRUCTOR) Glucose 159 (H) 70 - 110 mg/dL [facility] Specimen Blood, Arterial Performing Organization Address [facility] Phone Number [place] [phone] [place] [address] * HGB/HCT (H&H)-Stat Lab (08/22/2018 5:05 PM RECRUIT INSTRUCTOR) Hemoglobin 9.2 (L) 12.0 - 15.0 g/dL [facility] Hematocrit 27.0 (L) 36.0 - 45.0 % [facility] Specimen Blood, Arterial Performing Organization Address City/[facility] Centercode Phone Number [facility] [address] [place], [place] [address] [phone] [place] [address] * ABORH, manual (08/22/2018 4:15 PM RECRUIT INSTRUCTOR) ABO Grouping A [facility] Rh Factor POS [facility] Specimen Blood Performing Organization Address [facility] Centercoin Phone Number [facility] [address] [place], [place] [address] [phone] * ECG 12 lead (08/22/2018 3:31 AM RECRUIT INSTRUCTOR) Narrative Performed At Ventricular Rate 108 BPM GE MUSE Atrial Rate 108 BPM P-R Interval 146 ms QRS Duration 104 ms Q-T Interval 344 ms QTC Calculation(Bazett) 460 ms P [place] 62 degrees R [place] 62 degrees T [place] 25 degrees Sinus tachycardia Borderline criteria for Possible Inferior infarct , age undetermined Prolonged QT Abnormal ECG No previous ECGs available Confirmed by Ramon RICARDO BASANT ([id number]) on 08/23/2018 12:43:57 PM Procedure Note Interface, External Ris In - 08/23/2018 12:44 PM RECRUIT INSTRUCTOR Ventricular Rate 108 BPM Atrial Rate 108 BPM P-R Interval 146 ms QRS Duration 104 ms Q-T Interval 344 ms QTC Calculation(Bazett) 460 ms P [place] 62 degrees R [place] 62 degrees T [place] 25 degrees Sinus tachycardia Borderline criteria for Possible Inferior infarct , age undetermined Prolonged QT Abnormal ECG No previous ECGs available Confirmed by Ramon RICARDO BASANT ([id number]) on 08/23/2018 12:43:57 PM Performing Organization Address City/[facility] Centercode Phone Number [employer] MUSE * Lactic acid, venous, whole blood (08/22/2018 3:04 AM RECRUIT INSTRUCTOR) Lactate, Venous 0.8 0.5 - 2.2 mmol/L [facility] Specimen Blood - Central Venous Line Performing Organization Address City/State/Zipcode Phone Number [facility] [address] [place], [place] [phone] [facility]ENTER after 10/25/2017 Insurance Payer Benefit Subscriber ID Type Phone Address Plan / Group [facility] [employer] HMO xxxxxxxxx HMO/POS CARE POS SELECT CHOICE Advance Directives For more information, please contact: [facility] [address] [place] [address] Date Inactivated Comments Code Status Date Activated 09/26/2018 6:04 PM Full Code 08/22/2018 2:32 AM This code status was determined by: Patient
[2018-10-26] MEDS: HYDROMORPHONE 2MG/ML 2 MG/ML ML IV PRN ×5 (01:36→21:15)
[2018-10-26] MEDS ORDERED: IOPAMIDOL 370 MG/ML 200 ML INFUS..BTL INJ ONE (05:21)
[2018-10-26] MEDS ORDERED: SODIUM CHLORIDE 0.9% 50ML 50 ML ONE (05:21)
[2018-10-26] MEDS: INSULIN REGULAR, HUMAN 100 UNIT/1 ML 3ML VIAL SQ SCH ×4 (07:30→20:43)
--- NOTE | 2018-10-26 15:06 | NUR ---
WOUND CARE CONSULTATION: INITIAL EVALUATION [facility] for Abdominal Pain for Several Months and Worsening. HX: HTN, DM, Uterine Cancer, Kidney Stones, Bowel Resection with Colostomy, Lithotripsy. WBC: 16.29 HGB12.2 HCT38.8 NEUT%68.1 RFK398 ALB2.8 Urine Bacteria: Moderate - 10/26/18 - 0900- Guanaco Plascencia at bedside drained of abscess at bedside and gave okay to resume wound vac. Adjacent Abscess toward Left Gluteal connecting to main wound. - CT of Pelvis - Abscess forming, Possible Osteomyelitis. PATIENT VISIT: - Pleasant 58 year old female. Excellent historian. Patient previously admitted here for abd pain and was transferred to [facility] for evaluation and treatment of uterine ca. During her stay exploratory surgery was attempted to remove mass but was unsuccessful and resulted in partial removal of intestine and colostomy. During her stay there she states she developed a sacral pressure ulcer. - Patient was previously at [facility]. States she was not happy with her stay and if [facility] is needed she would prefer to go to [facility] in [place]. - Sacral area presents with full thickness ulceration, Irregular shaped/ Oval with undermining from 6 o'clock to 12 o'clock 3cm. Wound Measures 5x5x0.5cm. Fibrotic tissue at base. Bone not visible but palpable. Dick Score 16 Moderate PUP Active Alternating Pressure Air Mattress in place and settings to current weight. Patient on IV ABX = Vancomycin, and Zosyn. IMPRESSION: Sacral - Stage IV Pressure Ulcer - Present On Admission. RECOMMENDATION: 1. Sacral- Stage IV- Pressure Ulcer - Present On Admission - Cleanse wound with NS and 4x4 gauze then apply NPWT -120mmHg Continuous. Change Three Times A Week. 2. Turn and Reposition Patient Every 2 Hours using Clock Turning Schedule. 3. Encourage OOB Activity. 4. HOB < or = to 30 Degrees as tolerated 5. Continue Alternating Pressure Air Mattress and set to current patient weight. Thank you for consulting with Wound Care. Addendum: 10/26/18 at 1522 by Manoj Moss RN Amended: Links added.
--- NOTE | 2018-10-26 17:11 | Consultation ---
DATE OF CONSULTATION: 10/26/2018 CHIEF COMPLAINT: Sacral abscess. HISTORY OF PRESENT ILLNESS: The patient is a 58-year-old female with advanced metastatic uterine cancer with a large sacral wound from pressure ulcer. The patient has noted some discomfort in the area and wound VAC therapy was discontinued due to possible infection. She denies fever or chills. She has some discomfort in the abdomen anteriorly. No vomiting. PAST MEDICAL HISTORY: As mentioned is significant for advanced uterine cancer, diabetes with stage III sacral decubitus ulcer. PAST SURGICAL HISTORY: Positive for multiple abdominal surgeries including diverting ileostomy and bilateral nephrostomy tube placement and stent placement for bilateral hydronephrosis. ALLERGIES: NO DRUG ALLERGIES. SOCIAL HISTORY: No history of smoking, alcohol abuse. REVIEW OF SYSTEMS: She denies chest pain, shortness of breath. PHYSICAL EXAMINATION: VITAL SIGNS: Stable, afebrile. GENERAL: She is awake, alert, in no apparent distress. HEENT: Sclerae nonicteric. NECK: Supple. LUNGS: Clear. HEART: Regular rate and rhythm. ABDOMEN: Soft with functional ileostomy. EXTREMITIES: Cachectic. No cyanosis or edema. LABORATORY DATA: White cell count is 16,000, hemoglobin of 12. Creatinine 0.7. CT of the abdomen revealed sacral decubitus ulcer with subcutaneous fluid collection in the left medial gluteal area suggestive of abscess formation. ASSESSMENT: Sacral decubitus ulcer with small collection in the adjacent subcutaneous gluteal fat suggesting evolving abscess formation. PLAN: Drainage of the sacral/gluteal abscess to establish communication with the main sacral wound. This was done at bedside. Reapply wound VAC therapy. We will follow the patient with you. Guanaco Lujan MD DNDipesh/MODL /[id number]
--- NOTE | 2018-10-26 19:15 | NUR ---
bedside report received. patient in stable condition. bed locked and in lowest position, call light within easy reach.
[2018-10-27] VITALS (7 sets, daily range): BP systolic 121–166; BP diastolic 68–89
[2018-10-27] MEDS: VANCOMYCIN 1GM/NS 250 ML 250 ML IV SCH ×2 (00:18→12:15)
[2018-10-27] MEDS: SODIUM CHLORIDE 0.9% 1000ML 1,000 ML IV SCH ×3 (00:21→15:57)
[2018-10-27] MEDS: HYDROMORPHONE 2MG/ML 2 MG/ML ML IV PRN ×7 (00:55→21:24)
--- NOTE | 2018-10-27 01:46 | NUR ---
report given for continuity of care
[2018-10-27 06:19] LABS: BASOPHILS % 0.4 % (0.0-1.0); EOSINOPHILS # (AUTO) 0.2 (0.0-0.4); EOSINOPHILS % 2.1 % (0.0-6.0); HEMATOCRIT 36.2 % (34.2-44.1); HEMOGLOBIN 10.9 g/dL (12.0-16.0); LYMPHOCYTES # (AUTO) 1.2 (1.0-3.2); LYMPHOCYTES % 11.4 % (18.0-39.1); MEAN CORPUSCULAR HEMOGLOBIN 25.7 pg (28-32); MEAN CORPUSCULAR HGB CONC 30.1 g/dL (31-35); MEAN CORPUSCULAR VOLUME 85.4 fL (81-99); MONOCYTES # (AUTO) 0.6 (0.2-0.8); MONOCYTES % 5.4 % (4.4-11.3); NEUTROPHILS # (AUTO) 8.3 (2.1-6.9); NEUTROPHILS % 80.1 % (38.7-80.0); PLATELET COUNT 386 x10e3/uL (140-360); RED BLOOD COUNT 4.24 x10e6/uL (3.6-5.1); RED CELL DISTRIBUTION WIDTH 18.7 % (11.7-14.4)
[2018-10-27] MEDS: PIPER-TAZ 3.375 GM 50 ML IV SCH ×3 (06:33→22:00)
[2018-10-27 06:35] LABS: ALANINE AMINOTRANSFERASE 21 IU/L (0-55); ALBUMIN 2.2 g/dL (3.5-5.0); ALBUMIN/GLOBULIN RATIO 0.7 (0.8-2.0); ALKALINE PHOSPHATASE 114 IU/L (40-150); ANION GAP 16.3 mmol/L (8-16); BLOOD UREA NITROGEN 13 mg/dL (7-26); BUN/CREATININE RATIO 20 (6-25); CALCIUM 11.2 mg/dL (8.4-10.2); CARBON DIOXIDE 18 mmol/L (22-29); CHLORIDE 114 mmol/L (98-107); CREATININE, SERUM 0.64 mg/dL (0.57-1.11); EST GLOMERULAR FILTRATION RATE > 60 ML/MIN (60-); GLUCOSE 115 mg/dL (74-118); POTASSIUM 4.3 mmol/L (3.5-5.1); SODIUM 144 mmol/L (136-145)
[2018-10-27] MEDS: INSULIN REGULAR, HUMAN 100 UNIT/1 ML 3ML VIAL SQ SCH ×4 (07:30→20:25)
--- NOTE | 2018-10-27 10:44 | NUR ---
CASE MANAGEMENT ASSESSMENT Pick Up Attendant to bedside to discuss plan of care with patient/family. CM/SW role and care transitions discussed. Anticipated discharge plan discussed along with duration of care. CM/SW discussed patients right to make decisions in care. CM/SW work hours given. Patient lives: with son Admit/Transfer: thru ED; came from [facility]/ER visits since last admit: 0 POA/Emergency contact: best friend Inez [phone] Current/Previous Home Health: none PCP/Follow-up Care: Current/Previous DME: has walker at home, uses wheelchair at SNF Medications (referring to index hospitalization or the first time you were in the hospital) a. Were changes made in your medications when you were in the hospital on [date of index hospitalization]? n/a b. Did you understand the changes? n/a c. Were you able to obtain your new medications right away? pt went to [facility] when last discharged from hospital ([facility]) then transferred to [facility] at [place] d. Were you able to take your medications like the doctor wanted you to? n/a e. Did the hospital give you an accurate, easy to understand list of medications when you left? n/a Scale of 1-10 how comfortable does patient feel with disease management in outpatient settin Other Services: none Employment Status: employed Areas of Concerns: wounds, weakness Referral Needs: SNF Education Needs: medical management, wound care IMM/MOTT given and signed (if applicable): n/a Goal for discharge: SNF; pt states that [facility] does not want her back there. She wants to go to [facility] if SNF needed on discharge. Choice letter signed for [facility] and placed in chart. Copy to pt. CM/SW left business card at the bedside with contact information. Name and number was also written on the patients whiteboard. Patient verbalized understanding of discussion. CM will follow-up with ongoing discharge and transition of care needs. Addendum: 10/30/18 at 1335 by Florina Cassidy CM pt came from [facility] at [facility]
--- NOTE | 2018-10-27 11:15 | NUR ---
WOUND CARE CONSULTATION: FOLLOW UP - Wound Vac Placement Patient admitted [facility] ER for Abdominal Pain for Several Months and Worsening. HX: HTN, DM, Uterine Cancer, Kidney Stones, Bowel Resection with Colostomy, Lithotripsy. Urine Bacteria: Moderate - 10/26/18 - 09- Guanaco Plascencia at bedside drained of abscess at bedside and gave okay to resume wound vac. Adjacent Abscess toward Left Gluteal connecting to main wound. - CT of Pelvis - Abscess forming, Possible Osteomyelitis. PATIENT VISIT: - Pleasant, calm and in good spirits. - Sacral area presents with full thickness ulceration, Irregular shaped/ Oval with undermining from 6 o'clock to 12 o'clock 3cm. Wound Measures 5x5x0.5cm. Fibrotic tissue at base. Bone not visible but palpable. Appears to be healing. Granular Tissue throughout with scattered fibrotic tissue throughout wound bed. Dick Score 16 - Able to turn self without assistance. Moderate PUP Active Alternating Pressure Air Mattress in place and settings to current weight. Patient on IV ABX = Vancomycin, and Zosyn. NPWT -120mmHG Continuous. Change TIW . Changed today in lieu of preparation for . Next dressing change for Tuesday. Tolerated procedure well without discomfort. Dilaudid pre administered approx 30 minutes before placement of negative pressure wound therapy. IMPRESSION: Sacral - Stage IV Pressure Ulcer - Present On Admission. ( Slow Healing) RECOMMENDATION:- CONTINUE CURRENT TREATMENT PLAN. 1. Sacral- Stage IV- Pressure Ulcer - Present On Admission - Cleanse wound with NS and 4x4 gauze then apply NPWT -120mmHg Continuous. Change Three Times A Week. 2. Turn and Reposition Patient Every 2 Hours using Clock Turning Schedule. 3. Encourage OOB Activity. 4. HOB < or = to 30 Degrees as tolerated 5. Continue Alternating Pressure Air Mattress and set to current patient weight. Thank you for consulting with Wound Care. Addendum: 10/27/18 at 1120 by Manoj Moss RN Amended: Links added.
[2018-10-27] MEDS ORDERED: FENTANYL 50 MCG/HR PATCH TOP SCH (13:00)
[2018-10-27] MEDS ORDERED: VANCOMYCIN HCL 2 GM in SODIUM CHLORIDE 0.9% 500ML 500 ML IV SCH (14:00)
--- NOTE | 2018-10-27 14:38 | NUR ---
Nutrition Intervention Note RD Recommendation(s) for Physician: -Rec to liberalize diet to regular to promote PO intake -Rec Ensure BID to increase protein-calorie intake -Rec Tyshawn BID for wound healing -Rec MVi w/minerals, vitamin C, zinc sulfate to support wound healing The patient meets criteria for MODERATE protein-calorie malnutrition. Plan of Care: RD following, monitoring for tolerance and adequacy, ONS rec Nutrition reason for involvement: Pressure ulcer RD Assessment 10/27 Chart reviewed. 58yo F, who was admitted for sacral abscess. Visited pt in the room. Pt reported poor appetite for over 3 months and ~75lbs weight loss within a year. Pt stated that she was drinking 2x protein shakes and take Tyshawn BID at the [facility]. Pt requested for ONS. Ileostomy bag present. No complains of nausea or vomiting. No chewing or swallowing difficulty reported. Communicated RD rec with Dr. Izaguirre and he was agreeable with plan. Will continue to monitor and follow. Principal Problems/Diagnoses: L gluteal abscess, sacral pressure ulcer PMH: advanced uterine cancer, diabetes with stage III sacral decubitus ulcer. GI: abdomen soft, non-tender, LBM 10/26 Skin: Sacral - Stage IV Pressure Ulcer - Present On Admission. (Slow Healing) Labs: (10/27) BG 152 H, Ca 11.2 H Meds: NaCl Ht: 61in Wt: 118lb BMI: 22.3kg/m2 IBW: 105 Malnutrition Evaluation (10/27) The patient meets criteria for MODERATE protein-calorie malnutrition. Energy intake: <75% of estimated energy requirements for >3 months Weight loss: >20% in 1 year (Chronic) Fat loss: Moderate some clavicle protrusion Muscle loss: Moderate protrusion of clavicle and acromion process, depression of temporal Supporting Evidence: Fluid accumulation: unable to evaluate Functional Status: unable to evaluate Nutrition Prescription (Diet Order): Regular diet Estimated Nutritional Needs: Calories: 1325 1855kcal(25-35kcal/kg/d) Weight used: CBW Protein: 106 133g(2-2.5g/kg/d) Weight used: CBW Diet Adequacy: Not meeting calorie needs, Not meeting protein needs Diet Education Needs Assessment: Diet education indicated, but patient not appropriate for education at this time. Nutrition Care Level: high Nutrition Diagnosis: Chronic disease related severe malnutrition related to inadequate oral intake as evidenced by poor appetite, weight loss, and moderate muscle/ fat loss. Goal: Patient will meet 75-100% of estimated needs by follow up Progress: N/A Interventions: General healthful diet, Commercial beverage, Commercial food, Multivitamin/mineral supplement therapy, Collaboration with other providers Monitoring/Evaluation: Total energy intake, Total protein intake, Modified diet, Liquid supplement, Weight change Signed: Kelly Saavedra MS, RD, LD
--- NOTE | 2018-10-27 19:43 | NUR ---
Received report from AM nurse. Walking rounds completed.
[2018-10-27] MEDS ORDERED: VANCOMYCIN HCL 2 GM in SODIUM CHLORIDE 0.9% 500ML 400 ML IV SCH (20:00)
[2018-10-27] MEDS: VANCOMYCIN HCL 2 GM in SODIUM CHLORIDE 0.9% 500ML 500 ML IV SCH (20:44)
[2018-10-28] VITALS (8 sets, daily range): BP systolic 119–171; BP diastolic 62–88
--- NOTE | 2018-10-28 | NUR ---
Patient AAOx3. C/O pain given pain meds as ordered by MD.IV intact to left AC but patient is requesting to remove it. Resited IV to left FA 22G x1 stick. Patient tolerated well.
[2018-10-28] MEDS: SODIUM CHLORIDE 0.9% 1000ML 1,000 ML IV SCH ×3 (00:21→16:06)
[2018-10-28] MEDS: HYDROMORPHONE 2MG/ML 2 MG/ML ML IV PRN ×6 (01:15→22:20)
--- NOTE | 2018-10-28 04:47 | NUR ---
Patient resting quitly at this time. Continue monitor.
[2018-10-28 05:35] LABS: BASOPHILS % 0.4 % (0.0-1.0); EOSINOPHILS # (AUTO) 0.3 (0.0-0.4); EOSINOPHILS % 3.2 % (0.0-6.0); HEMATOCRIT 35.9 % (34.2-44.1); HEMOGLOBIN 10.8 g/dL (12.0-16.0); LYMPHOCYTES # (AUTO) 2.3 (1.0-3.2); LYMPHOCYTES % 24.4 % (18.0-39.1); MEAN CORPUSCULAR HEMOGLOBIN 25.6 pg (28-32); MEAN CORPUSCULAR HGB CONC 30.1 g/dL (31-35); MEAN CORPUSCULAR VOLUME 85.1 fL (81-99); MONOCYTES # (AUTO) 0.7 (0.2-0.8); MONOCYTES % 7.5 % (4.4-11.3); NEUTROPHILS % 64.2 % (38.7-80.0); PLATELET COUNT 388 x10e3/uL (140-360); RED BLOOD COUNT 4.22 x10e6/uL (3.6-5.1); RED CELL DISTRIBUTION WIDTH 18.6 % (11.7-14.4)
[2018-10-28] MEDS: PIPER-TAZ 3.375 GM 50 ML IV SCH ×3 (05:47→23:01)
[2018-10-28 05:59] LABS: ANION GAP 9.2 mmol/L (8-16); BLOOD UREA NITROGEN 13 mg/dL (7-26); BUN/CREATININE RATIO 25 (6-25); CALCIUM 10.2 mg/dL (8.4-10.2); CARBON DIOXIDE 19 mmol/L (22-29); CHLORIDE 113 mmol/L (98-107); CREATININE, SERUM 0.53 mg/dL (0.57-1.11); EST GLOMERULAR FILTRATION RATE > 60 ML/MIN (60-); GLUCOSE 119 mg/dL (74-118); POTASSIUM 4.2 mmol/L (3.5-5.1); SODIUM 137 mmol/L (136-145)
[2018-10-28] MEDS: INSULIN REGULAR, HUMAN 100 UNIT/1 ML 3ML VIAL SQ SCH ×4 (07:30→22:14)
[2018-10-28] MEDS: MULTIVITAMINS/MINERALS TAB PO SCH (08:49)
--- NOTE | 2018-10-28 12:20 | NUR ---
pt c/o not receiving pain med and was notified she received Dilaudid 1mg via IV push approx at 1210, medication pushed slowly over 2 minutes to reduce risk of side effects. teaching provided. she then reports "i usually feel a gruber here." while placing right hand over left chest. explained to patient purpose of medication is to assist relieve pain not provide "gruber." pointed out to patient she continues to wear fentanyl patch as ordered to left chest wall and administering Dilaudid too quickly via IV can have serious complications including respiratory distress. patient states ''Okay, thank you." will continue to monitor, call light within reach.
--- NOTE | 2018-10-28 19:20 | NUR ---
Report received and walking round complete. Pt resting in bed and in no apparent distress.Pt has wound vac in place to sacrum. All safety measures ensured, bed alarm on, and pt call cerda near.
--- NOTE | 2018-10-28 22:05 | NUR ---
Pt purewick cath changed and anisha care given along with PCT.
[2018-10-28] MEDS: VANCOMYCIN HCL 2 GM in SODIUM CHLORIDE 0.9% 500ML 500 ML IV SCH (22:37)
[2018-10-29] VITALS (7 sets, daily range): BP systolic 110–167; BP diastolic 62–86
[2018-10-29] MEDS: HYDROMORPHONE 2MG/ML 2 MG/ML ML IV PRN ×6 (02:29→21:19)
[2018-10-29] MEDS: SODIUM CHLORIDE 0.9% 1000ML 1,000 ML IV SCH ×3 (02:29→12:17)
[2018-10-29] MEDS: PIPER-TAZ 3.375 GM 50 ML IV SCH ×3 (05:34→21:19)
[2018-10-29] MEDS: INSULIN REGULAR, HUMAN 100 UNIT/1 ML 3ML VIAL SQ SCH ×4 (07:30→21:19)
[2018-10-29] MEDS: MULTIVITAMINS/MINERALS TAB PO SCH (09:14)
--- NOTE | 2018-10-29 11:15 | NUR ---
PureWick changed at this time. Ilieostomy bag changed at this time. Wound vac secure and in place. Dressing applied to midline open incision distal to the umbilicus. Patient tolerated all fairly well. New orders received from Dr. Savanna Izaguirre regarding pain medications. Patient complains of 8/10 pain to RLQ. Orders implemented.
[2018-10-29] MEDS: FENTANYL 100 MCG/HR PATCH TOP SCH (13:04)
--- NOTE | 2018-10-29 15:50 | NUR ---
Visit made by the Spiritual Care Department Pastoral Visitor, Baldemar Branch. PV provided pastoral presence, prayer, hospitality, communion, and supportive listening. Pastoral Visitor informed pt/family of the scope of Clothing Manager Services and availability. SHAAN CISSE Python Web Developer Spiritual Care Department O: [phone] Pager: [phone] ([phone] number calling from)
--- NOTE | 2018-10-29 22:57 | NUR ---
Vanc trough 15.4 and dose given.
[2018-10-29] MEDS: VANCOMYCIN HCL 2 GM in SODIUM CHLORIDE 0.9% 500ML 500 ML IV SCH (23:03)
[2018-10-30] VITALS (7 sets, daily range): BP systolic 116–158; BP diastolic 67–90
[2018-10-30] MEDS: SODIUM CHLORIDE 0.9% 1000ML 1,000 ML IV SCH ×4 (00:21→21:23)
[2018-10-30] MEDS: HYDROMORPHONE 2MG/ML 2 MG/ML ML IV PRN ×6 (01:48→20:55)
[2018-10-30] MEDS: PIPER-TAZ 3.375 GM 50 ML IV SCH ×3 (05:16→21:23)
[2018-10-30] MEDS ORDERED: SOD PHOSPHATE/SOD BIPHOSPHATE ENEMA 132 ML BTL PR ONE (06:00)
[2018-10-30] MEDS: INSULIN REGULAR, HUMAN 100 UNIT/1 ML 3ML VIAL SQ SCH ×4 (07:30→21:00)
[2018-10-30] MEDS: MULTIVITAMINS/MINERALS TAB PO SCH (09:30)
--- NOTE | 2018-10-30 11:00 | NUR ---
Dr. Izaguirre round on pt and spoke to her about hospice. He informed her that her tumors were spreading and getting worse. Pt stated she wants to follow up with her oncologists and get her opinion prior to making decisions on hospice. Dr. Izaguirre discussed with pt need for SNF in the meantime. Pt states she wants to go to [place]. Choice had been obtained prior. Letter in chart. CM received order for SNF eval.
--- NOTE | 2018-10-30 13:14 | NUR ---
SPOKE WITH PT, SHE IS FROM [facility] AND STATES DOES NOT WANT TO RETURN SHE WANTS TO GO TO [facility] STATES THAT SHE IS UPSET BECAUSE THE DOCTOR CAME I AND TOLD HER SHE NEEDED HOSPICE, SHE STATES SHE HAS AN APPOINTMENT WITH HER ONCOLOGIST AT [facility] IN 3 WEEKS AND HER PLAN IS TO CONTINUE WITH HER ONCOLOGIST PLAN FOR TREATMENT. STATES SHE WANTS TO MAKE CERTAIN THAT SHE CAN GET MED MANAGEMENT AT THE FACILITY. WILL FAX CLINICALS TO [facility].
--- NOTE | 2018-10-30 13:25 | NUR ---
CALLED TO CONFIRM RECEIPT OF CLINICALS SPOKE WITH [facility], THEY ARE SENDING LIAISON TO EVAL PT BEDSIDE. WILL GIVE PASRR TO HER WITH HARD COPY OF CLINICALS AND FILE A COPY IN CHART.
--- NOTE | 2018-10-30 15:38 | NUR ---
WOUND CARE CONSULTATION: FOLLOW UP - Wound Vac Placement [facility] for Abdominal Pain for Several Months and Worsening. HX: HTN, DM, Uterine Cancer, Kidney Stones, Bowel Resection with Colostomy, Lithotripsy. Urine Bacteria: Moderate - 10/26/18 - 899- Guanaco Plascencia at bedside drained of abscess at bedside and gave okay to resume wound vac. Adjacent Abscess toward Left Gluteal connecting to main wound. - CT of Pelvis - Abscess forming, Possible Osteomyelitis. PATIENT VISIT: - Pleasant, calm and in good spirits. Friend at bedside. - Sacral area presents with full thickness ulceration, Irregular shaped/ Oval with undermining from 6 o'clock to 12 o'clock 3cm. Wound Measures [id number]. 100 % granulation. Bone not visible but palpable. Appears to be healing. Dick Score 16 - Able to turn self without assistance. Moderate PUP Active Alternating Pressure Air Mattress in place and settings to current weight. Patient on IV ABX = Vancomycin, and Zosyn. Current TX: NPWT -120mmHG Continuous. Change TIW . Tolerated procedure well without discomfort. Midline Abdomen at incision site, unapproximated with scant serosanguineous drainage. Partial thickness. 100% granular. IMPRESSION: Sacral - Stage IV Pressure Ulcer - Present On Admission. ( Slow Healing) Midline Abdomen- Surgical Incision Dehiscence. RECOMMENDATION:- CONTINUE CURRENT TREATMENT PLAN. 1. Sacral- Stage IV- Pressure Ulcer - Present On Admission - Cleanse wound with NS and 4x4 gauze then apply NPWT -120mmHg Continuous. Change Three Times A Week. 2. Turn and Reposition Patient Every 2 Hours using Clock Turning Schedule. 3. Encourage OOB Activity. 4. HOB < or = to 30 Degrees as tolerated 5. Continue Alternating Pressure Air Mattress and set to current patient weight. 6. Midline Abdomen- Surgical Incision Dehiscence - Cleanse wound with normal saline and pat dry thoroughly - Apply Puracol Ag+ and Cover with Silver Alginate. Change every other day and PRN Soiling. Thank you for consulting with Wound Care. Addendum: 10/30/18 at 1544 by Manoj Moss RN Amended: Links added.
--- NOTE | 2018-10-30 19:10 | NUR ---
Patient visited in room during nursing rounds. Patient alert and oriented x3. Patient experiencing intermittent abdominal pain. Pt on IVF (NS at 125ml/hr). Pt uses Purewick prn. Non-ambulatory. Wound VAC on sacrum (stage 4 ulcer). I[address]ostomy in [address]. Call cerda within reach. Will monitor closely.
[2018-10-30] MEDS: VANCOMYCIN HCL 2 GM in SODIUM CHLORIDE 0.9% 500ML 500 ML IV SCH (22:00)
[2018-10-31] VITALS (8 sets, daily range): BP systolic 131–161; BP diastolic 59–85
[2018-10-31] MEDS: HYDROMORPHONE 2MG/ML 2 MG/ML ML IV PRN ×7 (01:05→21:56)
[2018-10-31] MEDS: PIPER-TAZ 3.375 GM 50 ML IV SCH ×3 (06:00→22:00)
[2018-10-31] MEDS: INSULIN REGULAR, HUMAN 100 UNIT/1 ML 3ML VIAL SQ SCH ×4 (07:30→20:47)
[2018-10-31] MEDS: SODIUM CHLORIDE 0.9% 1000ML 1,000 ML IV SCH ×2 (08:21→16:21)
[2018-10-31] MEDS: MULTIVITAMINS/MINERALS TAB PO SCH (08:45)
[2018-10-31] MEDS: ONDANSETRON HCL 4 MG ORAL DISINTEGRATING TAB PO PRN (16:19)
--- NOTE | 2018-10-31 19:26 | NUR ---
Nutrition Intervention Note RD Recommendation(s) for Physician: - Continue Regular diet - Continue Ensure BID - Continue Tyshawn BID, MVI with minerals, and Vitamin C for wound healing The patient meets criteria for MODERATE protein-calorie malnutrition. Plan of Care: RD following, monitoring for tolerance and adequacy, ONS rec Nutrition reason for involvement: Pressure ulcer RD Assessment 10/31: Pt seen for follow up. Pt reports good appetite and po intake, noted 75-100% intake per nursing. pt reports drinking Ensure BID and 100% of Tyshawn. Pt with no questions or concerns at time of visit. Will monitor and continue to follow. 10/27 Chart reviewed. 58yo F, who was admitted for sacral abscess. Visited pt in the room. Pt reported poor appetite for over 3 months and ~75lbs weight loss within a year. Pt stated that she was drinking 2x protein shakes and take Tyshawn BID at the custodial. Pt requested for ONS. Ileostomy bag present. No complains of nausea or vomiting. No chewing or swallowing difficulty reported. Communicated RD rec with Dr. Izaguirre and he was agreeable with plan. Will continue to monitor and follow. Principal Problems/Diagnoses: L gluteal abscess, sacral pressure ulcer PMH: advanced uterine cancer, diabetes with stage III sacral decubitus ulcer. GI: abdomen soft, non-tender, LBM 10/26 Skin: Sacral - Stage IV Pressure Ulcer - Present On Admission. (Slow Healing) Labs: 10/31: BG 119, POC Gluc 127-187 (10/27) BG 152 H, Ca 11.2 H Meds: reviewed Ht: 61in Wt: 118lb BMI: 22.3kg/m2 IBW: 105 Malnutrition Evaluation (10/27) The patient meets criteria for MODERATE protein-calorie malnutrition. Energy intake: <75% of estimated energy requirements for >3 months Weight loss: >20% in 1 year (Chronic) Fat loss: Moderate some clavicle protrusion Muscle loss: Moderate protrusion of clavicle and acromion process, depression of temporal Supporting Evidence: Fluid accumulation: unable to evaluate Functional Status: unable to evaluate Nutrition Prescription (Diet Order): Regular diet Estimated Nutritional Needs: Calories: 1325 1855kcal(25-35kcal/kg/d) Weight used: CBW Protein: 106 133g(2-2.5g/kg/d) Weight used: CBW Diet Adequacy: Not meeting calorie needs, Not meeting protein needs Diet Education Needs Assessment: Diet education not indicated, pt on Regular diet. Nutrition Care Level: Moderate Nutrition Diagnosis: Chronic disease related severe malnutrition related to inadequate oral intake as evidenced by poor appetite, weight loss, and moderate muscle/ fat loss. Goal: Patient will meet 75-100% of estimated needs by follow up Progress: Progressing Interventions: General healthful diet, Commercial beverage, Commercial food, Multivitamin/mineral supplement therapy, Collaboration with other providers Monitoring/Evaluation: Total energy intake, Total protein intake, Modified diet, Liquid supplement, Weight change Signed: Neda Jhaveri RD, LD, [facility]
--- NOTE | 2018-10-31 19:28 | NUR ---
Patient received lying in bed. AAO x 4. No c/o pain. No signs of respiratory distress. Purewick, Wound Vac and Ileostomy bag in place. Fall precautions implemented. Patient instructed to call for assistance when needed. Call light within reach.
[2018-10-31] MEDS: VANCOMYCIN HCL 2 GM in SODIUM CHLORIDE 0.9% 500ML 500 ML IV SCH (21:00)
[2018-10-31] MEDS ORDERED: SODIUM CHLORIDE 0.9% 500ML 500 ML ONE (21:04)
--- NOTE | 2018-10-31 22:00 | NUR ---
Vancomycin trough recorded as 19.3. Dr. Savanna Izaguirre notified. Order received to hold Vancomycin and recheck tomorrow.
--- NOTE | 2018-10-31 23:30 | NUR ---
IV infiltrated in left hand. New IV inserted in Right FA 20G. Patient tolerated well.
[2018-11-01] MEDS: SODIUM CHLORIDE 0.9% 1000ML 1,000 ML IV SCH ×3 (00:21→16:21)
[2018-11-01 01:10] VITALS: BP 135/72
[2018-11-01] MEDS: HYDROMORPHONE 2MG/ML 2 MG/ML ML IV PRN ×4 (01:23→13:15)
--- NOTE | 2018-11-01 01:25 | NUR ---
Purewick changed and reconnected back to suction. Wound vac alarm went off signalling a leak. Tegaderm applied over sacral wound dressing. Alarm signal ceased.
--- NOTE | 2018-11-01 03:07 | NUR ---
Midline abdominal dressing soiled. Wound dressing performed per MD's orders.
[2018-11-01 05:02] VITALS: BP 138/70
[2018-11-01] MEDS: ONDANSETRON HCL 4 MG ORAL DISINTEGRATING TAB PO PRN (05:24)
[2018-11-01] MEDS: PIPER-TAZ 3.375 GM 50 ML IV SCH ×2 (05:58→13:14)
--- NOTE | 2018-11-01 07:16 | NUR ---
Walking round done. Shift report given to oncoming nurse.
[2018-11-01] MEDS: INSULIN REGULAR, HUMAN 100 UNIT/1 ML 3ML VIAL SQ SCH ×3 (07:30→16:15)
[2018-11-01 08:01] VITALS: BP 137/75
[2018-11-01 08:43] VITALS: BP 137/75
[2018-11-01] MEDS: MULTIVITAMINS/MINERALS TAB PO SCH (08:43)
--- NOTE | 2018-11-01 11:35 | NUR ---
Manufacturing Group Leader referred by older adult social work specialist. Pt's friends at bedside. Pt states that MD had bad news last week but "I'm okay." Provided information on how to reach forms analysis manager, if needed. SHAAN CISSE Manufacturing Group Leader Spiritual Care Department O: [phone] Pager: [phone] ([phone] number calling from)
[2018-11-01] MEDS: FENTANYL 100 MCG/HR PATCH TOP SCH (11:40)
[2018-11-01 11:46] VITALS: BP 145/73
--- NOTE | 2018-11-01 12:45 | NUR ---
PT ACCEPTED TO DR TOPETE AT [facility] IN ROOM 314B. GAVE INFORMATION TO TOMAS NURSE TO COMPLETE TRANSFER SNF.
--- NOTE | 2018-11-01 13:30 | NUR ---
DR MARTINEZ WOULD LIKE FOR PT TO BE FOLLOWED BY DR SALAZAR, CALLED STEPHEN TO LET KNOW TO CHANGE.
[2018-11-01 15:51] VITALS: BP 122/73
--- NOTE | 2018-11-01 16:17 | NUR ---
WOUND CARE CONSULTATION: FOLLOW UP Patient admitted from [facility] to ER for Abdominal Pain for Several Months and Worsening. HX: HTN, DM, Uterine Cancer, Kidney Stones, Bowel Resection with Colostomy, Lithotripsy. Urine Bacteria: Moderate - 10/26/18 - 899- Guanaco Plascencia at bedside drained of abscess at bedside and gave okay to resume wound vac. Adjacent Abscess toward Left Gluteal connecting to main wound. - CT of Pelvis - Abscess forming, Possible Osteomyelitis. PATIENT VISIT: - Pleasant, calm and in good spirits. Friend at bedside. - Sacral area presents with full thickness ulceration, Irregular shaped/ Oval with undermining from 6 o'clock to 12 o'clock 3cm. Wound Measures 4.8x4.8x1cm. 100 % granulation. Bone not visible but palpable. Healthy beefy red appearance. HEALING - Midline Abdomen at incision site, unapproximated with scant serosanguineous drainage. Partial thickness. 100% granular. HEALING Dick Score 17 - Able to turn self without assistance. Moderate PUP Active Alternating Pressure Air Mattress in place and settings to current weight. Patient on IV ABX = Vancomycin, and Zosyn. Current TX: NPWT -120mmHG Continuous. Change TIW . Patient discharging today to [facility] Moistened Gauze Dressing applied and covered with Allevyn Foam Sacrum Dressing for transportation. skilled nursing to assess and resume Negative Pressure Wound Therapy. Ostomy bag changed. Abdominal incision ulcer dressing changed. Puracol Ag+ to base of wound then Maxsorb Ag+ and Covered with 4x4 gauze and secured with hypafix tape. Tolerated procedure well without discomfort. IMPRESSION: Sacral - Stage IV Pressure Ulcer - Present On Admission. ( HEALING) Midline Abdomen- Surgical Incision Dehiscence. ( HEALING) RECOMMENDATION:- CONTINUE CURRENT TREATMENT PLAN AT Snf Facility. 1. Sacral- Stage IV- Pressure Ulcer - Present On Admission - Cleanse wound with NS and 4x4 gauze then apply NPWT -120mmHg Continuous. Change Three Times A Week. 2. Turn and Reposition Patient Every 2 Hours using Clock Turning Schedule. 3. Encourage OOB Activity. 4. HOB < or = to 30 Degrees as tolerated 5. Continue Alternating Pressure Air Mattress and set to current patient weight. 6. Midline Abdomen- Surgical Incision Dehiscence - Cleanse wound with normal saline and pat dry thoroughly - Apply Puracol Ag+ and Cover with Silver Alginate. Change every other day and PRN Soiling. Thank you for consulting with Wound Care. Addendum: 11/01/18 at 1622 by Manoj Moss RN Amended: Links added.
--- NOTE | 2018-11-01 16:17 | NUR ---
PT CALLED SW TO ROOM SHE DOES NOT WANT DR SALAZAR SHE STATES SHE WANTS DR TOPETE CALLED [facility] AND THEY WERE ABLE TO SWITCH.
== END 2018-11-01 17:41 | DRG 853 ==
LOC: ER 18:52 → ERHOLD 10-26 00:31 → MED/SURG2 10-26 01:15
PROC: 0J990ZZ Drainage of Buttock Subcutaneous Tissue and Fascia, Open Approach (ICD-10-PCS; principal; 2018-10-26)
DX: A41.9 Sepsis, unspecified organism (principal); L89.154 Pressure ulcer of sacral region, stage 4; N39.0 Urinary tract infection, site not specified; L02.31 Cutaneous abscess of buttock; C79.11 Secondary malignant neoplasm of bladder; E44.0 Moderate protein-calorie malnutrition; C55 Malignant neoplasm of uterus, part unspecified; E11.9 Type 2 diabetes mellitus without complications; Z79.4 Long term (current) use of insulin; Z68.23 Body mass index [BMI] 23.0-23.9, adult
CPT/HCPCS: 36415; 71045; 74177; 80048; 80053; 80202; 81001; 82948; 85025; 87040; 87086; 96360; 96374; 96375; 97605; 99284; J2405; J2543; J3370; J7030; J7040; Q9967

== ENCOUNTER 2018-12-15 01:23 | Inpatient (IN) | payer OTHER ==
[~2018-12-15] VITALS: Ht 154.9 cm; Wt 39.5 kg
--- OUTSIDE RECORDS SUMMARY | 2018-12-15 01:29 | XMS REPORT | Clinical Summary ---
Author Author DARYN [facility] Address Unknown Phone Unavailable Care Team Providers Care [place] Consultant Name Role Phone PCP Unavailable Allergies No [...] 6 (six) solution hours for 360 days. Active ondansetron (ZOFRAN) 4 Inject 2 mLs 20 mL 0 mg/2 mL injection (4 mg total) 9 intravenously every 8 (eight) hours as needed. 09/26/2019 Active insulin regular (HUMULIN Use as 10 mL 0 R,NOVOLIN R) 100 unit/mL directed. 9 injection 10/06/2018 collagenase (SANTYL) 250 Apply 15 g 0 units/g ointment topically 9 daily for 10 days. 10/26/2018 lidocaine (LIDODERM) 5 % Place 1 patch 30 patch 0 patch onto the skin 9 daily for 30 days Remove & Discard patch within 12 hours or as directed by MD. Active Problems Problem Noted Date Anemia 09/26/2018 [...] type; Hypomagnesemia; Hypoxemia requiring supplemental oxygen 08/22/2018 [facility] General Internal Medicine - Encounter 09/26/2018 08/22/2018 Orders Only General Internal Medicine after 12/14/2017 Social History Date Tobacco Use Types Packs/Day [...] CDT Oxygen Saturation 94% 09/08/2018 1:30 PM GUM SPRAYER Inhaled Oxygen 36% Concentration 09/25/2018 4:59 AM CDT Weight 59.2 kg (130 lb 9.6 oz) 08/22/2018 2:00 AM GUM SPR[facility]ER Height 154.9 cm (5' 1") 09/25/2018 4:59 AM CDT Body Mass Index 24.68 Plan of Treatment Not on file Implants Device Identifier Shelf Expiration Date Model / Serial / Lot Implanted Type Area Manufactur er 10/08/2018 [id number] / N/A / [id number] Stent Uret Cntour Inj [id number] IMPLANTS Left: Ureter [employer] [id number] - Sn/A SCI:UROLOG Implanted: Qty: 1 on 09/18/2018 by Rolan/Wai Hollis MD [place] 10/08/2018 [id number] / N/A / [id number] Stent Uret Cntour Inj [id number] IMPLANTS Right: Ureter [employer] [id number] - Sn/A SCI:UROLOG Implanted: Qty: 1 on [...] METER Routine 09/18/2018 9:35 PM CDT 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 Routine 09/18/2018 MINUTE INCREMENTS [...] CDT POCT-GLUCOSE METER Routine 09/16/2018 8:58 PM G[facility]ER POCT-GLUCOSE METER Routine 09/16/2018 5:54 PM G[employer]ER POCT-GLUCOSE METER Routine 09/16/2018 11:24 AM GUM SPR[facility]ER XR CHEST 1 VIEW Routine 09/16/2018 PORTABLE/BEDSIDE 10:09 AM G[facility] [employer]ER POCT-GLUCOSE METER Routine 09/16/2018 7:31 AM G[facility]ER CBC W/PLT COUNT & AUTO Routine 09/16/2018 DIFFERENTIAL 4:03 AM G[facility]ER COMPREHENSIVE METABOLIC Routine 09/16/2018 PANEL 4:03 AM G[facility]ER PHOSPHORUS Routine 09/16/2018 4:03 AM G[facility]ER MAGNESIUM Routine 09/16/2018 4:03 AM GUM SPR[employer]ER PT/APTT Routine 09/16/2018 4:03 AM G[facility] [employer]ER CBC W/PLT COUNT & AUTO Routine 09/16/2018 DIFFERENTIAL 4:03 AM G[facility] SPR[facility]ER POCT-GLUCOSE METER Routine 09/15/2018 9:10 PM G[facility]ER POCT-GLUCOSE METER Routine 09/15/2018 6:[address] DRAINAGE ABDOMINAL Routine 09/15/2018 4:54 PM G[facility]ER BODY FLUID CULTURE + GRAM SHIVANI 09/15/2018 STAIN 4:[address] ABDOMEN/PELVIS WITHOUT Routine 09/15/2018 IV CONTRAST 12:34 PM GUM [facility]ER XR CHEST 1 VIEW Routine 09/15/2018 PORTABLE/BEDSIDE 9:51 AM GUM [facility]ER URINALYSIS W/ MICROSCOPIC Routine 09/15/2018 8:59 AM GUM [facility]ER UREA NITROGEN, RANDOM Routine 09/15/2018 URINE 8:59 AM G[facility]ER CREATININE, RANDOM URINE Routine 09/15/2018 8:59 AM GUM SPR[facility]ER SODIUM, RANDOM URINE Routine 09/15/2018 8:59 AM GUM SPR[facility]ER POCT-GLUCOSE METER Routine 09/15/2018 7:58 AM GUM SPRAYER CBC W/PLT COUNT & AUTO Routine 09/15/2018 DIFFERENTIAL 4:15 AM GUM SPRAYER CBC W/PLT COUNT & AUTO Routine 09/15/2018 DIFFERENTIAL 4:15 AM G[facility]ER PHOSPHORUS Routine 09/15/2018 4:15 AM G[facility]ER MAGNESIUM Routine 09/15/2018 4:15 AM GUM SPRAYER BASIC METABOLIC PANEL (7) Routine 09/15/2018 4:15 AM GUM SPRAYER PT/APTT Routine 09/15/2018 4:15 AM GUM SPRAYER CBC W/PLT COUNT & AUTO Routine 09/15/2018 DIFFERENTIAL 4:15 AM GUM SPRAYER CBC W/PLT COUNT & AUTO Routine 09/15/2018 DIFFERENTIAL 4:15 AM GUM SPRAYER BASIC METABOLIC PANEL (7) Routine 09/15/2018 4:15 AM GUM SPR[facility]ER POCT-GLUCOSE METER Routine 09/14/2018 8:54 PM GUM [facility]ER POCT-GLUCOSE METER Routine 09/14/2018 6:26 PM GUM [facility]ER PREALBUMIN Routine 09/14/2018 3:04 PM GUM SPR[facility]ER POCT-GLUCOSE METER Routine 09/14/2018 9:03 AM GUM [facility]ER XR CHEST 1 VIEW Routine 09/14/2018 PORTABLE/BEDSIDE 7:38 AM GUM SPRAYER CBC W/PLT COUNT & AUTO Routine 09/14/2018 DIFFERENTIAL 4:42 AM GUM SPRAYER CBC W/PLT COUNT & AUTO Routine 09/14/2018 DIFFERENTIAL 4:42 AM GUM SPR[facility]ER PHOSPHORUS Routine 09/14/2018 4:42 AM GUM SPRAYER MAGNESIUM Routine 09/14/2018 4:42 AM GUM SPR[facility]ER BASIC METABOLIC PANEL (7) Routine 09/14/2018 4:42 AM GUM SPR[facility]ER PT/APTT Routine 09/14/2018 4:42 AM GUM SPRAYER CBC W/PLT COUNT & AUTO Routine 09/14/2018 DIFFERENTIAL 4:42 AM GUM SPRAYER CBC W/PLT COUNT & AUTO Routine 09/14/2018 DIFFERENTIAL 4:42 AM GUM SPRAYER BASIC METABOLIC PANEL (7) Routine 09/14/2018 4:42 AM GUM SPR[facility]ER POCT-GLUCOSE METER Routine 09/13/2018 9:10 PM GUM SPRAYER POCT-GLUCOSE METER Routine 09/13/2018 6:00 PM GUM SPR[facility]ER POCT-GLUCOSE METER Routine 09/13/2018 5:04 PM GUM SPR[facility]ER XR CHEST 1 VIEW Routine 09/13/2018 PORTABLE/BEDSIDE 6:21 AM GUM SPRAYER CBC W/PLT COUNT & AUTO Routine 09/13/2018 DIFFERENTIAL 5:29 AM GUM [facility]ER HEMOGLOBIN A1C Routine 09/13/2018 5:29 AM GUM SPRAYER CBC W/PLT COUNT & AUTO Routine 09/13/2018 DIFFERENTIAL 5:29 AM G[facility] SPRAYER BASIC METABOLIC PANEL (7) Routine 09/13/2018 5:29 AM G[facility] SPRAYER CBC W/PLT COUNT & AUTO Routine 09/13/2018 DIFFERENTIAL 4:54 AM G[facility] SPR[facility]ER PHOSPHORUS Routine 09/13/2018 4:54 AM GUM SPRAYER MAGNESIUM Routine 09/13/2018 4:54 AM G[facility] SPRAYER BASIC METABOLIC PANEL (7) Routine 09/13/2018 4:54 AM GUM SPRAYER PT/APTT Routine 09/13/2018 4:54 AM GUM SPRAYER CBC W/PLT COUNT & AUTO Routine 09/13/2018 DIFFERENTIAL 4:54 AM GUM SPRAYER POCT-GLUCOSE METER Routine 09/12/2018 10:35 PM GUM SPRAYER POCT-GLUCOSE METER Routine 09/12/2018 9:56 PM G[facility] SPRAYER POCT-GLUCOSE METER Routine 09/12/2018 5:57 PM GUM SPR[facility]ER POCT-GLUCOSE METER Routine 09/12/2018 5:09 PM GUM SPRAYER POCT-GLUCOSE METER Routine 09/12/2018 7:46 AM GUM SPR[facility]ER XR CHEST 1 VIEW Routine 09/12/2018 PORTABLE/BEDSIDE 7:25 AM GUM SPRAYER CBC W/PLT COUNT & AUTO Routine 09/12/2018 DIFFERENTIAL 4:10 AM G[facility] SPRAYER PHOSPHORUS Routine 09/12/2018 4:10 AM GUM SPRAYER MAGNESIUM Routine 09/12/2018 4:10 AM G[facility] SPRAYER BASIC METABOLIC PANEL (7) Routine 09/12/2018 4:10 AM GUM SPRAYER PT/APTT Routine 09/12/2018 4:10 AM GUM SPRAYER CBC W/PLT COUNT & AUTO Routine 09/12/2018 DIFFERENTIAL 4:10 AM GUM SPRAYER POCT-GLUCOSE METER Routine 09/11/2018 9:10 PM GUM SPRAYER POCT-GLUCOSE METER Routine 09/11/2018 6:02 PM GUM SPRAYER POCT-GLUCOSE METER Routine 09/11/2018 5:36 PM G[facility] SPR[facility]ER POCT-GLUCOSE METER Routine 09/11/2018 11:[address] ABDOMEN/PELVIS WITH IV Routine 09/11/2018 CONTRAST 10:32 AM GUM SPRAYER XR CHEST 1 VIEW Routine 09/11/2018 PORTABLE/BEDSIDE 7:51 AM GUM SPRAYER POCT-GLUCOSE METER Routine 09/11/2018 7:21 AM GUM SPRAYER CBC W/PLT COUNT & AUTO Routine 09/11/2018 DIFFERENTIAL 5:53 AM GUM SPRAYER PHOSPHORUS Routine 09/11/2018 5:53 AM GUM SPRAYER MAGNESIUM Routine 09/11/2018 5:53 AM GUM SPRAYER BASIC METABOLIC PANEL (7) Routine 09/11/2018 5:53 AM GUM SPRAYER PT/APTT Routine 09/11/2018 5:53 AM GUM SPRAYER CBC W/PLT COUNT & AUTO Routine 09/11/2018 DIFFERENTIAL 5:53 AM GUM SPRAYER BASIC METABOLIC PANEL (7) Routine 09/11/2018 5:53 AM GUM SPRAYER POCT-GLUCOSE METER Routine 09/10/2018 9:08 PM GUM SPRAYER POCT-GLUCOSE METER Routine 09/10/2018 5:58 PM GUM SPRAYER POCT-GLUCOSE METER Routine 09/10/2018 12:56 PM GUM SPRAYER XR CHEST 1 VIEW Routine 09/10/2018 PORTABLE/BEDSIDE 9:31 AM GUM SPRAYER POCT-GLUCOSE METER Routine 09/10/2018 9:27 AM GUM SPRAYER CBC W/PLT COUNT & AUTO Routine 09/10/2018 DIFFERENTIAL 7:07 AM GUM SPRAYER PHOSPHORUS Routine 09/10/2018 7:07 AM GUM SPRAYER MAGNESIUM Routine 09/10/2018 7:07 AM GUM SPRAYER BASIC METABOLIC PANEL (7) Routine 09/10/2018 7:07 AM GUM SPRAYER PT/APTT Routine 09/10/2018 7:07 AM GUM SPRAYER CBC W/PLT COUNT & AUTO Routine 09/10/2018 DIFFERENTIAL 7:07 AM GUM SPRAYER POCT-GLUCOSE METER Routine 09/09/2018 9:11 PM GUM SPRAYER POCT-GLUCOSE METER Routine 09/09/2018 5:28 PM GUM SPRAYER POCT-GLUCOSE METER Routine 09/09/2018 12:52 PM GUM SPRAYER XR CHEST 1 VIEW Routine 09/09/2018 PORTABLE/BEDSIDE 9:08 AM GUM SPRAYER POCT-GLUCOSE METER Routine 09/09/2018 7:31 AM GUM SPRAYER CBC W/PLT COUNT & AUTO Routine 09/09/2018 DIFFERENTIAL 5:15 AM GUM SPRAYER PHOSPHORUS Routine 09/09/2018 5:15 AM GUM SPRAYER MAGNESIUM Routine 09/09/2018 5:15 AM GUM SPRAYER PT/APTT Routine 09/09/2018 5:15 AM GUM SPRAYER CBC W/PLT COUNT & AUTO Routine 09/09/2018 DIFFERENTIAL 5:15 AM GUM SPRAYER BASIC METABOLIC PANEL (7) Routine 09/09/2018 5:15 AM GUM SPRAYER POCT-GLUCOSE METER Routine 09/08/2018 11:39 PM GUM SPRAYER POCT-GLUCOSE METER Routine 09/08/2018 5:31 PM GUM SPRAYER POCT-GLUCOSE METER Routine 09/08/2018 11:49 AM GUM SPRAYER POCT-GLUCOSE METER Routine 09/08/2018 8:13 AM GUM SPRAYER XR CHEST 1 VIEW Routine 09/08/2018 PORTABLE/BEDSIDE 7:19 AM GUM SPRAYER CBC W/PLT COUNT & AUTO Routine 09/08/2018 DIFFERENTIAL 3:29 AM GUM SPRAYER PHOSPHORUS Routine 09/08/2018 3:29 AM GUM SPRAYER MAGNESIUM Routine 09/08/2018 3:29 AM GUM SPRAYER BASIC METABOLIC PANEL (7) Routine 09/08/2018 3:29 AM GUM SPRAYER PT/APTT Routine 09/08/2018 3:29 AM GUM SPRAYER CBC W/PLT COUNT & AUTO Routine 09/08/2018 DIFFERENTIAL 3:29 AM GUM SPRAYER POCT-GLUCOSE METER Routine 09/08/2018 2:11 AM GUM SPRAYER POCT-GLUCOSE METER Routine 09/08/2018 12:46 AM GUM SPRAYER POCT-GLUCOSE METER Routine 09/07/2018 9:30 PM GUM SPRAYER POCT-GLUCOSE METER Routine 09/07/2018 8:59 PM GUM SPRAYER POCT-GLUCOSE METER Routine 09/07/2018 4:41 PM GUM SPRAYER POCT-GLUCOSE METER Routine 09/07/2018 9:50 AM GUM SPRAYER XR CHEST 1 VIEW Routine 09/07/2018 PORTABLE/BEDSIDE 7:43 AM GUM SPRAYER CBC W/PLT COUNT & AUTO Routine 09/07/2018 DIFFERENTIAL 3:54 AM GUM SPRAYER PHOSPHORUS Routine 09/07/2018 3:54 AM GUM SPRAYER MAGNESIUM Routine 09/07/2018 3:54 AM GUM SPRAYER BASIC METABOLIC PANEL (7) Routine 09/07/2018 3:54 AM GUM SPRAYER PT/APTT Routine 09/07/2018 3:54 AM GUM [facility]AYER CBC W/PLT COUNT & AUTO Routine 09/07/2018 DIFFERENTIAL 3:54 AM GUM SPRAYER POCT-GLUCOSE METER Routine 09/06/2018 9:00 PM G[facility] SPRAYER POCT-GLUCOSE METER Routine 09/06/2018 5:33 PM GUM SPRAYER POCT-GLUCOSE METER Routine 09/06/2018 12:23 PM GUM SPRAYER POCT-GLUCOSE METER Routine 09/06/2018 7:37 AM GUM SPRAYER XR CHEST 1 VIEW Routine 09/06/2018 PORTABLE/BEDSIDE 7:16 AM GUM SPRAYER CBC W/PLT COUNT & AUTO Routine 09/06/2018 DIFFERENTIAL 3:59 AM G[facility] SPRAYER PHOSPHORUS Routine 09/06/2018 3:59 AM GUM SPRAYER MAGNESIUM Routine 09/06/2018 3:59 AM G[facility] SPRAYER BASIC METABOLIC PANEL (7) Routine 09/06/2018 3:59 AM GUM SPR[facility]ER PT/APTT Routine 09/06/2018 3:59 AM GUM SPRAYER CBC W/PLT COUNT & AUTO Routine 09/06/2018 DIFFERENTIAL 3:59 AM GUM SPRAYER BASIC METABOLIC PANEL (7) Routine 09/06/2018 3:59 AM GUM SPRAYER POCT-GLUCOSE METER Routine 09/05/2018 10:31 PM G[facility] SPR[facility]ER POCT-GLUCOSE METER Routine 09/05/2018 4:57 PM GUM SPR[facility]ER POCT-GLUCOSE METER Routine 09/05/2018 11:40 AM G[facility] SPR[facility]ER POCT-GLUCOSE METER Routine 09/05/2018 10:11 AM G[facility] SPR[facility]ER POCT-GLUCOSE METER Routine 09/05/2018 6:07 AM GUM SPR[facility]ER CBC W/PLT COUNT & AUTO Routine 09/05/2018 DIFFERENTIAL 4:54 AM G[facility] SPR[facility]ER PHOSPHORUS Routine 09/05/2018 4:54 AM GUM SPRAYER MAGNESIUM Routine 09/05/2018 4:54 AM GUM SPRAYER BASIC METABOLIC PANEL (7) Routine 09/05/2018 4:54 AM GUM [facility]ER PT/APTT Routine 09/05/2018 4:54 AM GUM [facility]ER CBC W/PLT COUNT & AUTO Routine 09/05/2018 DIFFERENTIAL 4:54 AM G[facility]ER XR CHEST 1 VIEW Routine 09/05/2018 PORTABLE/BEDSIDE 4:42 AM GUM [facility]ER POCT-GLUCOSE METER Routine 09/05/2018 12:43 AM G[facility]ER POCT-GLUCOSE METER Routine 09/05/2018 12:12 AM G[facility]ER POCT-GLUCOSE METER Routine 09/04/2018 7:[address] ABDOMEN/PELVIS WITH IV STAT 09/04/2018 CONTRAST 6:06 PM G[facility]ER TRANSFUSION SERVICE 09/04/2018 REPORT - SCAN 6:01 PM G[facility]ER POCT-GLUCOSE METER Routine 09/04/2018 4:42 PM G[facility]ER POCT-GLUCOSE METER Routine 09/04/2018 12:03 PM GUM [facility]ER XR CHEST 1 VIEW Routine 09/04/2018 PORTABLE/BEDSIDE 7:07 AM GUM SPR[facility]ER POCT-GLUCOSE METER Routine 09/04/2018 6:03 AM GUM SPRAYER CBC W/PLT COUNT & AUTO Routine 09/04/2018 DIFFERENTIAL 5:03 AM G[facility]ER PHOSPHORUS Routine 09/04/2018 5:03 AM GUM SPRAYER MAGNESIUM Routine 09/04/2018 5:03 AM GUM SPRAYER BASIC METABOLIC PANEL (7) Routine 09/04/2018 5:03 AM GUM [facility]ER PT/APTT Routine 09/04/2018 5:03 AM GUM [facility]ER CBC W/PLT COUNT & AUTO Routine 09/04/2018 DIFFERENTIAL 5:03 AM G[facility] SPR[facility]ER POCT-GLUCOSE METER Routine 09/04/2018 12:54 AM GUM SPRAYER PREPARE LEUKO-REDUCED RBC Routine 09/03/2018 11:54 PM G[facility]ER POCT-GLUCOSE METER Routine 09/03/2018 6:30 PM GUM [facility]ER TRANSFUSION SERVICE 09/03/2018 REPORT - SCAN 6:00 PM G[facility]ER POCT-GLUCOSE METER Routine 09/03/2018 12:39 PM G[facility]ER POCT-GLUCOSE METER Routine 09/03/2018 5:55 AM GUM SPR[facility]ER XR CHEST 1 VIEW Routine 09/03/2018 PORTABLE/BEDSIDE 5:27 AM GUM SPRAYER CBC W/PLT COUNT & AUTO Routine 09/03/2018 DIFFERENTIAL 4:52 AM GUM SPRAYER PHOSPHORUS Routine 09/03/2018 4:52 AM GUM SPRAYER MAGNESIUM Routine 09/03/2018 4:52 AM GUM SPRAYER BASIC METABOLIC PANEL (7) Routine 09/03/2018 4:52 AM GUM SPR[facility]ER PT/APTT Routine 09/03/2018 4:52 AM GUM SPRAYER CBC W/PLT COUNT & AUTO Routine 09/03/2018 DIFFERENTIAL 4:52 AM GUM [facility]ER BLOOD GAS, ARTERIAL Routine 09/03/2018 4:46 AM GUM SPR[facility]ER POCT-GLUCOSE METER Routine 09/02/2018 11:45 PM G[facility] SPR[facility]ER POCT-GLUCOSE METER Routine 09/02/2018 5:55 PM GUM SPRAYER CBC W/PLT COUNT & AUTO Routine 09/02/2018 DIFFERENTIAL 12:07 PM GUM SPRAYER CBC W/PLT COUNT & AUTO Routine 09/02/2018 DIFFERENTIAL 12:07 PM G[facility] SPRAYER POCT-GLUCOSE METER Routine 09/02/2018 11:44 AM GUM SPR[facility]ER TRANSFUSE LEUKO-REDUCED Routine 09/02/2018 RED BLOOD CELLS 10:58 AM GUM [facility]ER TYPE AND SCREEN, STAT 09/02/2018 AUTOMATED 6:22 AM G[facility]ER POCT-GLUCOSE METER Routine 09/02/2018 6:21 AM GUM SPR[facility]ER XR CHEST 1 VIEW Routine 09/02/2018 PORTABLE/BEDSIDE 4:30 AM GUM SPRAYER CBC W/PLT COUNT & AUTO Routine 09/02/2018 DIFFERENTIAL 2:21 AM GUM SPR[facility]ER PHOSPHORUS Routine 09/02/2018 2:21 AM G[facility] SPR[facility]ER MAGNESIUM Routine 09/02/2018 2:21 AM G[facility] SPRAYER BASIC METABOLIC PANEL (7) Routine 09/02/2018 2:21 AM GUM SPR[facility]ER PT/APTT Routine 09/02/2018 2:21 AM GUM SPR[facility]ER CBC W/PLT COUNT & AUTO Routine 09/02/2018 DIFFERENTIAL 2:21 AM G[facility] SPR[facility]ER POCT-GLUCOSE METER Routine 09/02/2018 12:00 AM G[facility] SPR[facility]ER XR ABDOMEN 1 VIEW STAT 09/01/2018 7:18 PM G[facility]ER POCT-GLUCOSE METER Routine 09/01/2018 6:13 PM G[facility] SPR[facility]ER POCT-GLUCOSE METER Routine 09/01/2018 11:47 AM G[facility] SPR[facility]ER POCT-GLUCOSE METER Routine 09/01/2018 6:22 AM G[facility] SPR[facility]ER XR CHEST 1 VIEW Routine 09/01/2018 PORTABLE/BEDSIDE 4:06 AM GUM SPR[facility]ER CBC W/PLT COUNT & AUTO Routine 09/01/2018 DIFFERENTIAL 4:03 AM G[facility] SPRAYER PHOSPHORUS Routine 09/01/2018 4:03 AM GUM SPRAYER MAGNESIUM Routine 09/01/2018 4:03 AM G[facility] SPRAYER BASIC METABOLIC PANEL (7) Routine 09/01/2018 4:03 AM G[facility] SPR[facility]ER PT/APTT Routine 09/01/2018 4:03 AM GUM SPR[facility]ER CBC W/PLT COUNT & AUTO Routine 09/01/2018 DIFFERENTIAL 4:03 AM G[facility] SPRAYER POCT-GLUCOSE METER Routine 09/01/2018 12:20 AM G[facility] SPR[facility]ER ECHOCARDIOGRAM REPORT - 08/31/2018 SCAN 9:21 PM G[facility] SPRAYER POCT-GLUCOSE METER Routine 08/31/2018 6:55 PM G[facility]ER PHOSPHORUS Routine 08/31/2018 1:07 PM G[facility] SPRAYER MAGNESIUM Routine 08/31/2018 1:07 PM GUM SPRAYER BASIC METABOLIC PANEL (7) Routine 08/31/2018 1:07 PM G[facility]ER POCT-GLUCOSE METER Routine 08/31/2018 12:50 PM GUM SPRAYER 2D ECHO W/ DOPPLER STAT 08/31/2018 (CW/PW/COLOR) 11:58 AM G[facility]ER POCT-GLUCOSE METER Routine 08/31/2018 8:28 AM G[facility]ER POCT-GLUCOSE METER Routine 08/31/2018 6:14 AM GUM SPR[facility]ER XR CHEST 1 VIEW Routine 08/31/2018 PORTABLE/BEDSIDE 4:45 AM GUM SPRAYER CBC W/PLT COUNT & AUTO Routine 08/31/2018 DIFFERENTIAL 3:40 AM G[facility] SPR[facility]ER PHOSPHORUS Routine 08/31/2018 3:40 AM G[facility] SPRAYER MAGNESIUM Routine 08/31/2018 3:40 AM GUM SPRAYER BASIC METABOLIC PANEL (7) Routine 08/31/2018 3:40 AM G[facility]ER BLOOD GAS, VENOUS Routine 08/31/2018 3:40 AM G[facility] SPR[facility]ER PT/APTT Routine 08/31/2018 3:40 AM GUM SPRAYER CBC W/PLT COUNT & AUTO Routine 08/31/2018 DIFFERENTIAL 3:40 AM G[facility] SPRAYER POCT-GLUCOSE METER Routine 08/31/2018 12:18 AM GUM [facility]ER TRANSFUSION SERVICE 08/30/2018 REPORT - SCAN 6:01 PM G[facility]ER POCT-GLUCOSE METER Routine 08/30/2018 5:22 PM G[facility] SPR[facility]ER POCT-GLUCOSE METER Routine 08/30/2018 11:05 AM G[facility]ER POCT-GLUCOSE METER Routine 08/30/2018 5:38 AM G[facility]ER XR CHEST 1 VIEW Routine 08/30/2018 PORTABLE/BEDSIDE 4:54 AM GUM SPRAYER (CELLAVISION MANUAL DIFF) Routine 08/30/2018 3:52 AM GUM SPRAYER CBC W/PLT COUNT & AUTO Routine 08/30/2018 DIFFERENTIAL 3:52 AM GUM SPRAYER PHOSPHORUS Routine 08/30/2018 3:52 AM GUM SPRAYER MAGNESIUM Routine 08/30/2018 3:52 AM GUM SPRAYER BASIC METABOLIC PANEL (7) Routine 08/30/2018 3:52 AM G[facility]ER BLOOD GAS, VENOUS Routine 08/30/2018 3:52 AM GUM SPRAYER PT/APTT Routine 08/30/2018 3:52 AM GUM SPRAYER CBC W/PLT COUNT & AUTO Routine 08/30/2018 DIFFERENTIAL 3:52 AM G[facility] SPRAYER POCT-GLUCOSE METER Routine 08/30/2018 12:02 AM GUM SPRAYER PHOSPHORUS Routine 08/29/2018 9:04 PM GUM SPRAYER MAGNESIUM Routine 08/29/2018 9:04 PM GUM SPRAYER BASIC METABOLIC PANEL (7) Routine 08/29/2018 9:04 PM GUM SPRAYER POCT-GLUCOSE METER Routine 08/29/2018 5:55 PM G[facility] SPRAYER POCT-GLUCOSE METER Routine 08/29/2018 12:05 PM GUM SPRAYER XR CHEST 1 VIEW STAT 08/29/2018 PORTABLE/BEDSIDE 8:36 AM GUM SPRAYER POCT-GLUCOSE METER Routine 08/29/2018 6:21 AM GUM SPRAYER BLOOD GAS, VENOUS Routine 08/29/2018 4:09 AM GUM SPRAYER (CELLAVISION MANUAL DIFF) Routine 08/29/2018 4:08 AM GUM SPRAYER CBC W/PLT COUNT & AUTO Routine 08/29/2018 DIFFERENTIAL 4:08 AM GUM SPRAYER TYPE AND SCREEN, Routine 08/29/2018 AUTOMATED 4:08 AM GUM SPRAYER TRIGLYCERIDES Routine 08/29/2018 4:08 AM GUM SPRAYER CALCIUM, IONIZED Routine 08/29/2018 4:08 AM GUM SPRAYER PHOSPHORUS Routine 08/29/2018 4:08 AM GUM SPRAYER MAGNESIUM Routine 08/29/2018 4:08 AM GUM SPRAYER BASIC METABOLIC PANEL (7) Routine 08/29/2018 4:08 AM GUM SPRAYER PT/APTT Routine 08/29/2018 4:08 AM GUM SPRAYER CBC W/PLT COUNT & AUTO Routine 08/29/2018 DIFFERENTIAL 4:08 AM GUM SPRAYER POCT-GLUCOSE METER Routine 08/29/2018 12:21 AM GUM SPRAYER POCT-GLUCOSE METER Routine 08/28/2018 7:00 PM GUM SPRAYER POCT-GLUCOSE METER Routine 08/28/2018 12:16 PM GUM SPRAYER POCT-GLUCOSE METER Routine 08/28/2018 5:44 AM GUM SPRAYER (CELLAVISION MANUAL DIFF) Routine 08/28/2018 3:46 AM GUM SPRAYER CBC W/PLT COUNT & AUTO Routine 08/28/2018 DIFFERENTIAL 3:46 AM GUM SPRAYER BLOOD GAS, ARTERIAL Routine 08/28/2018 3:46 AM GUM SPRAYER PHOSPHORUS Routine 08/28/2018 3:46 AM GUM SPRAYER MAGNESIUM Routine 08/28/2018 3:46 AM GUM SPRAYER BASIC METABOLIC PANEL (7) Routine 08/28/2018 3:46 AM GUM SPRAYER PT/APTT Routine 08/28/2018 3:46 AM GUM SPRAYER CBC W/PLT COUNT & AUTO Routine 08/28/2018 DIFFERENTIAL 3:46 AM GUM SPRAYER XR CHEST 1 VIEW Routine 08/28/2018 PORTABLE/BEDSIDE 3:45 AM GUM SPRAYER POCT-GLUCOSE METER Routine 08/28/2018 12:10 AM GUM SPRAYER XR ABDOMEN 1 VIEW Routine 08/27/2018 6:47 PM GUM SPRAYER POCT-GLUCOSE METER Routine 08/27/2018 5:49 PM GUM SPRAYER PHOSPHORUS Routine 08/27/2018 2:32 PM GUM SPRAYER BASIC METABOLIC PANEL (7) Routine 08/27/2018 2:32 PM GUM SPRAYER POCT-GLUCOSE METER Routine 08/27/2018 11:58 AM GUM SPRAYER XR CHEST 1 VIEW Routine 08/27/2018 PORTABLE/BEDSIDE 5:51 AM GUM SPRAYER POCT-GLUCOSE METER Routine 08/27/2018 5:36 AM GUM SPRAYER (CELLAVISION MANUAL DIFF) Routine 08/27/2018 4:27 AM GUM SPRAYER CBC W/PLT COUNT & AUTO Routine 08/27/2018 DIFFERENTIAL 4:27 AM GUM SPRAYER BLOOD GAS, ARTERIAL Routine 08/27/2018 4:27 AM GUM SPRAYER PHOSPHORUS Routine 08/27/2018 4:27 AM GUM SPRAYER MAGNESIUM Routine 08/27/2018 4:27 AM GUM SPRAYER BASIC METABOLIC PANEL (7) Routine 08/27/2018 4:27 AM GUM SPRAYER PT/APTT Routine 08/27/2018 4:27 AM GUM SPRAYER CBC W/PLT COUNT & AUTO Routine 08/27/2018 DIFFERENTIAL 4:27 AM GUM SPRAYER POCT-GLUCOSE METER Routine 08/27/2018 12:39 AM GUM SPRAYER POCT-GLUCOSE METER Routine 2018 6:23 PM GUM SPRAYER POCT-GLUCOSE METER Routine 2018 12:07 PM GUM SPRAYER POCT-GLUCOSE METER Routine 2018 6:35 AM GUM SPRAYER BLOOD GAS, ARTERIAL Routine 2018 3:14 AM GUM SPRAYER CBC W/PLT COUNT & AUTO Routine 2018 DIFFERENTIAL 3:11 AM GUM SPRAYER PT/APTT Routine 2018 3:11 AM GUM SPRAYER CBC W/PLT COUNT & AUTO Routine 2018 DIFFERENTIAL 3:11 AM GUM SPRAYER XR CHEST 1 VIEW Routine 2018 PORTABLE/BEDSIDE 2:50 AM GUM SPRAYER POCT-GLUCOSE METER Routine 2018 12:14 AM GUM SPRAYER PHOSPHORUS Routine 08/25/2018 11:35 PM GUM SPRAYER MAGNESIUM Routine 08/25/2018 11:35 PM GUM SPRAYER BASIC METABOLIC PANEL (7) Routine 08/25/2018 11:35 PM GUM SPRAYER VANCOMYCIN LEVEL, TROUGH Timed 08/25/2018 9:14 PM GUM SPRAYER POCT-GLUCOSE METER Routine 08/25/2018 6:27 PM GUM SPRAYER URINALYSIS W/ REFLEX STAT 08/25/2018 URINE CULTURE 1:02 PM GUM SPRAYER SPUTUM CULTURE + GRAM STAT 08/25/2018 STAIN 1:02 PM G[employer] SPRAYER BLOOD CULTURE STAT 08/25/2018 1:01 PM G[employer] SPR[employer]ER BLOOD CULTURE STAT 08/25/2018 1:01 PM G[employer] SPR[employer]ER POCT-GLUCOSE METER Routine 08/25/2018 12:56 PM GUM SPRAYER BLOOD GAS, ARTERIAL STAT 08/25/2018 10:23 AM GUM SPRAYER POCT-GLUCOSE METER Routine 08/25/2018 7:51 AM GUM SPRAYER POCT-GLUCOSE METER Routine 08/25/2018 5:35 AM GUM SPRAYER CBC W/PLT COUNT & AUTO Routine 08/25/2018 DIFFERENTIAL 3:45 AM GUM SPRAYER BLOOD GAS, ARTERIAL Routine 08/25/2018 3:45 AM GUM SPRAYER PHOSPHORUS Routine 08/25/2018 3:45 AM GUM SPRAYER MAGNESIUM Routine 08/25/2018 3:45 AM GUM SPRAYER BASIC METABOLIC PANEL (7) Routine 08/25/2018 3:45 AM GUM SPRAYER PT/APTT Routine 08/25/2018 3:45 AM GUM SPRAYER CBC W/PLT COUNT & AUTO Routine 08/25/2018 DIFFERENTIAL 3:45 AM GUM SPRAYER XR CHEST 1 VIEW Routine 08/25/2018 PORTABLE/BEDSIDE 3:25 AM GUM SPRAYER BLOOD GAS, ARTERIAL Routine 08/25/2018 2:07 AM GUM SPRAYER POCT-GLUCOSE METER Routine 08/24/2018 11:52 PM GUM SPRAYER POCT-GLUCOSE METER Routine 08/24/2018 5:42 PM GUM SPRAYER POCT-GLUCOSE METER Routine 08/24/2018 11:44 AM GUM SPRAYER VANCOMYCIN LEVEL, TROUGH Timed 08/24/2018 8:13 AM GUM SPR[employer]ER POCT-GLUCOSE METER Routine 08/24/2018 6:05 AM GUM SPRAYER XR CHEST 1 VIEW Routine 08/24/2018 PORTABLE/BEDSIDE 4:43 AM GUM SPRAYER BLOOD GAS, ARTERIAL Routine 08/24/2018 4:10 AM GUM SPRAYER (CELLAVISION MANUAL DIFF) Routine 08/24/2018 4:04 AM GUM SPRAYER CBC W/PLT COUNT & AUTO Routine 08/24/2018 DIFFERENTIAL 4:04 AM GUM SPRAYER PHOSPHORUS Routine 08/24/2018 4:04 AM GUM SPRAYER MAGNESIUM Routine 08/24/2018 4:04 AM GUM SPRAYER BASIC METABOLIC PANEL (7) Routine 08/24/2018 4:04 AM GUM SPRAYER PT/APTT Routine 08/24/2018 4:04 AM GUM SPRAYER CBC W/PLT COUNT & AUTO Routine 08/24/2018 DIFFERENTIAL 4:04 AM GUM SPRAYER POCT-GLUCOSE METER Routine 08/24/2018 12:08 AM GUM SPRAYER TRANSFUSION SERVICE 08/23/2018 REPORT - SCAN 6:01 PM GUM SPRAYER POCT-GLUCOSE METER Routine 08/23/2018 6:01 PM GUM SPRAYER BLOOD GAS, ARTERIAL Routine 08/23/2018 5:15 PM GUM SPRAYER PHOSPHORUS Routine 08/23/2018 1:14 PM GUM SPRAYER MAGNESIUM Routine 08/23/2018 1:14 PM GUM SPRAYER BASIC METABOLIC PANEL (7) Routine 08/23/2018 1:14 PM GUM SPRAYER POCT-GLUCOSE METER Routine 08/23/2018 12:06 PM GUM SPRAYER XR CHEST 1 VIEW Routine 08/23/2018 PORTABLE/BEDSIDE 6:53 AM GUM SPRAYER POCT-GLUCOSE METER Routine 08/23/2018 6:32 AM GUM SPRAYER CBC W/PLT COUNT & AUTO Routine 08/23/2018 DIFFERENTIAL 3:26 AM GUM SPRAYER BLOOD GAS, ARTERIAL Routine 08/23/2018 3:26 AM GUM SPRAYER PHOSPHORUS Routine 08/23/2018 3:26 AM GUM SPRAYER MAGNESIUM Routine 08/23/2018 3:26 AM GUM SPRAYER BASIC METABOLIC PANEL (7) Routine 08/23/2018 3:26 AM GUM SPRAYER PT/APTT Routine 08/23/2018 3:26 AM GUM SPRAYER CBC W/PLT COUNT & AUTO Routine 08/23/2018 DIFFERENTIAL 3:26 AM GUM SPRAYER POCT-GLUCOSE METER Routine 08/23/2018 1:54 AM GUM SPRAYER POCT-GLUCOSE METER Routine 08/23/2018 12:34 AM GUM SPRAYER BLOOD GAS, ARTERIAL Routine 08/23/2018 12:19 AM GUM SPRAYER BLOOD GAS, ARTERIAL Routine 08/22/2018 8:16 PM GUM SPRAYER PHOSPHORUS Routine 08/22/2018 8:16 PM GUM SPRAYER MAGNESIUM Routine 08/22/2018 8:16 PM GUM SPRAYER CBC (HEMOGRAM ONLY) Routine 08/22/2018 8:16 PM GUM SPRAYER BASIC METABOLIC PANEL (7) Routine 08/22/2018 8:16 PM GUM SPRAYER POCT-GLUCOSE METER Routine 08/22/2018 6:55 PM GUM SPRAYER PREPARE LEUKO-REDUCED RBC STAT 08/22/2018 5:18 PM GUM SPRAYER SURGICALLY OBTAINED Routine 08/22/2018 CULTURE + GRAM STAIN 5:11 PM GUM SPRAYER ANAEROBIC CULTURE Routine 08/22/2018 5:11 PM GUM SPRAYER HGB/HCT (H&H) - STAT LAB STAT 08/22/2018 5:05 PM GUM SPRAYER GLUCOSE-STAT LAB STAT 08/22/2018 5:05 PM GUM SPRAYER POTASSIUM-STAT LAB STAT 08/22/2018 5:05 PM GUM SPRAYER SODIUM NA-STAT LAB STAT 08/22/2018 5:05 PM GUM SPRAYER BLOOD GAS, ARTERIAL STAT 08/22/2018 5:05 PM GUM SPRAYER CALCIUM, IONIZED STAT 08/22/2018 5:05 PM GUM SPRAYER RRL CRITICAL LABS STAT 08/22/2018 (ABG,NA,K,H&H,GLUCOSE) 5:05 PM GUM SPRAYER ABORH, MANUAL STAT 08/22/2018 4:15 PM GUM SPRAYER TYPE AND SCREEN, STAT 08/22/2018 AUTOMATED 4:[address] ABDOMEN/PELVIS WITH IV STAT 08/22/2018 CONTRAST 3:03 PM GUM SPRAYER CREATION,ILEOSTOMY 08/22/2018 Bowel and bladder 2:25 PM GUM SPRAYER incontinence Special Needs REQ 1400 LAPAROTOMY,EXPLORATORY 08/22/2018 Bowel and bladder 2:25 PM GUM SPRAYER incontinence Special Needs REQ 1400 (CELLAVISION MANUAL DIFF) Routine 08/22/2018 1:55 PM GUM SPRAYER CBC W/PLT COUNT & AUTO Routine 08/22/2018 DIFFERENTIAL 1:55 PM GUM SPRAYER PHOSPHORUS Routine 08/22/2018 1:55 PM GUM SPRAYER MAGNESIUM Routine 08/22/2018 1:55 PM GUM SPRAYER BASIC METABOLIC PANEL (7) Routine 08/22/2018 1:55 PM GUM SPRAYER CBC W/PLT COUNT & AUTO Routine 08/22/2018 DIFFERENTIAL 1:55 PM GUM SPRAYER POCT-GLUCOSE METER Routine 08/22/2018 1:53 PM GUM SPRAYER BLOOD GAS, ARTERIAL STAT 08/22/2018 1:50 PM GUM SPRAYER POCT-GLUCOSE METER Routine 08/22/2018 12:56 PM GUM SPRAYER URINALYSIS W/ REFLEX STAT 08/22/2018 URINE CULTURE 11:21 AM GUM SPRAYER POCT-GLUCOSE METER Routine 08/22/2018 10:46 AM GUM SPRAYER XR CHEST 1 VIEW STAT 08/22/2018 PORTABLE/BEDSIDE 9:25 AM GUM SPRAYER XR ABDOMEN 1 VIEW STAT 08/22/2018 9:25 AM GUM SPRAYER BLOOD GAS, ARTERIAL STAT 08/22/2018 8:22 AM GUM SPRAYER XR CHEST 1 VIEW STAT 08/22/2018 PORTABLE/BEDSIDE 3:44 AM GUM SPRAYER ECG 12-LEAD Routine 08/22/2018 3:31 AM GUM SPRAYER ECG 12-LEAD Routine 08/22/2018 3:31 AM GUM SPRAYER Procedure Note - Interface, External Ris In - 08/22/2018 6:23 PM GUM SPRAYER Ventricula r Rate 108 BPM Atrial Rate 108 BPM P-R Interval 146 ms QRS Duration 104 ms Q-T Interval 344 ms QTC Calculatio n(Bazett) 460 ms P Eagle 62 degrees R Eagle 62 degrees T Eagle 25 degrees Sinus tachycardi a Possible Inferior infarct , age undetermin ed Abnormal ECG No previous ECGs available BLOOD GAS, ARTERIAL Routine 08/22/2018 3:19 AM GUM SPRAYER BLOOD CULTURE Routine 08/22/2018 3:06 AM GUM SPRAYER LACTIC ACID, VENOUS Routine 08/22/2018 3:04 AM GUM SPRAYER CBC W/PLT COUNT & AUTO Routine 08/22/2018 DIFFERENTIAL 2:48 AM GUM SPRAYER PHOSPHORUS Routine 08/22/2018 2:48 AM GUM SPRAYER MAGNESIUM STAT 08/22/2018 2:48 AM GUM SPRAYER COMPREHENSIVE METABOLIC Routine 08/22/2018 PANEL 2:48 AM GUM SPRAYER PT/APTT Routine 08/22/2018 2:48 AM GUM SPRAYER CBC W/PLT COUNT & AUTO Routine 08/22/2018 DIFFERENTIAL 2:48 AM GUM SPRAYER BLOOD CULTURE Routine 08/22/2018 2:47 AM GUM SPRAYER after 12/14/2017 Results * RHYTHM STRIP - SCAN (10/12/2018 7:30 PM CDT) Only the most recent of 2 results within the time period is included. Narrative Performed At * POC-Glucose meter (09/26/2018 12:02 PM CDT) Only the most recent of 151 results within the time period is included. POC-Glucose Meter 128 (H)Comment: TESTED AT 70 - 110 mg/dL [facility] [address] [address] Specimen Blood Performing Organization Address City/State/Zipcode Phone Number [address] [address] [facility] * XR chest 1 view portable/bedside (09/26/2018 7:34 AM CDT) Only the most recent of 37 results within the time period is included. Specimen Narrative Performed At FINAL REPORT [facility] Chest one view. Clinical history: evaluation of pulmonary edema Comparison: 09/25/2018 Discussion: A frontal chest is provided. The cardiac and mediastinal contours are unremarkable allowing for portable technique. There is no pneumothorax, javed pulmonary edema, consolidation or significant pleural effusion. The bony structures are unremarkable. Signed: Josefa Dickey MD Report Verified Date/Time:09/26/2018 08:13:08 Reading Location: [facility] Radiology Reading Room Procedure Note Interface, External Ris In - 09/26/2018 8:23 AM CDT FINAL REPORT Chest one view. Clinical history: evaluation of pulmonary edema Comparison: 09/25/2018 Discussion: A frontal chest is provided. The cardiac and mediastinal contours are unremarkable allowing for portable technique. There is no pneumothorax, jaevd pulmonary edema, consolidation or significant pleural effusion. The bony structures are unremarkable. Signed: Josefa Dickey MD Report Verified Date/Time: 09/26/2018 08:13:08 Reading [facility] Reading Room Performing Organization Address City/State/Zipcode Phone Number [facility] * PT/aPTT (09/26/2018 5:32 AM CDT) Only the most recent of 36 results within the time period is included. Protime 14.8 (H) 11.7 - 14.7 seconds [facility] INR 1.2 <=5.9 [facility] PTT 49.5 (H) 22.5 - 36.0 seconds [facility] Specimen Blood Narrative Performed At RECOMMENDED COUMADIN/WARFARIN INR THERAPY RANGES [facility] STANDARD DOSE: 2.0 - 3.0 Includes: PROPHYLAXIS for venous thrombosis, [facility] systemic embolization; TREATMENT for venous thrombosis and/or pulmonary embolus. HIGH RISK: Target INR is 2.5-3.5 for patients with mechanical heart valves. Performing Organization Address City/[facility] Phone Number [place] [phone] [place] [address] [facility] * CBC with platelet count + automated diff (09/26/2018 5:32 AM CDT) Only the most recent of 40 results within the time period is included. WBC 13.7 (H) 3.5 - 10.5 K/L [facility] RBC 4.50 3.93 - 5.22 M/L [facility] Hemoglobin 10.6 (L) 11.2 - 15.7 GM/DL [facility] Hematocrit 35.2 34.1 - 44.9 % [facility] MCV 78.2 (L) 79.4 - 94.8 fL [facility] MCH 23.6 (L) 25.6 - 32.2 pg [facility] MCHC 30.1 (L) 32.2 - 35.5 GM/DL [facility] RDW 20.1 (H) 11.7 - 14.4 % [facility] Platelets 531 (H) 150 - 450 K/CU MM [facility] MPV 9.5 9.4 - 12.3 fL [facility] nRBC 0 0 - 0 /100 WBC [facility] % Neutros 72 % [facility] % Lymphs 17 % [facility] % Monos 7 % [facility] % Eos 2 % [facility] % Baso 1 % [facility] # Neutros 9.91 (H) 1.56 - 6.13 K/L [facility] # Lymphs 2.35 1.18 - 3.74 K/L [facility] # Monos 0.99 (H) 0.24 - 0.36 K/L [facility] # Eos 0.25 0.04 - 0.36 K/L [facility] # Baso 0.07 0.01 - 0.08 K/L [facility] Immature 1 0 - 1 % [facility] Granulocytes-[facility] Specimen Blood Performing Organization Address City/State/Zipcode Phone Number [facility] [address] [place] [address] MED[facility]ENTER * Phosphorus (09/26/2018 5:32 AM CDT) Only the most recent of 42 results within the time period is included. Phosphorus 2.6 2.3 - 4.7 mg/dL [facility] Specimen Blood Performing Organization Address City/State/Zipcode Phone Number [facility] [address] [place], [place] [phone] [facility] * Magnesium (09/26/2018 5:32 AM CDT) Only the most recent of 41 results within the time period is included. Magnesium 1.7 1.6 - 2.6 mg/dL [facility] Specimen Blood Performing Organization Address City/[facility]/Zipcode Phone Number [address] [address] [facility] * Basic Metabolic Panel (09/26/2018 5:32 AM CDT) Only the most recent of 44 results within the time period is included. Sodium 133 (L) 136 - 145 meq/L [facility] Potassium 3.5 3.5 - 5.1 meq/L [facility] Chloride 95 (L) 98 - 107 meq/L [facility] CO2 26 22 - 29 meq/L [facility] BUN 14 7 - 21 mg/dL [facility] Creatinine 0.70 0.57 - 1.25 mg/dL [facility] Glucose 89 70 - 105 mg/dL [facility] Calcium 12.1 (H) 8.4 - 10.2 mg/dL [facility] EGFR 86Comment: ESTIMATED GFR IS mL/min/1.73 sq m [facility] NOT ACCURATE CREATININE [facility] CLEARANCE IN PREDICTING GLOMERULAR FILTRATION RATE. ESTIMATED GFR IS NOT APPLICABLE FOR DIALYSIS PATIENTS. Specimen Blood Performing Organization Address City/[facility]/Zipcode Phone Number [address] [address] [facility] * Urinalysis w/Microscopic + Reflex to Culture (09/23/2018 11:48 AM CDT) Only the most recent of 3 results within the time period is included. Color, UA Yellow [facility] Clarity, UA Hazy [facility] Specific [place], UA 1.014 1.001 - 1.035 [facility] pH, UA 6.0 5.0 - 8.0 [facility] Protein, UA 70 mg/dL (A) Negative [facility] Glucose, UA Negative Negative [facility] Ketones, UA Negative Negative [facility] Bilirubin, UA Negative Negative [facility] Blood, UA Large (A) Negative [facility] Nitrite, UA Negative Negative [facility] Leukocytes, UA Large (A) Negative [facility] Urobilinogen, UA 0.2 0.2 - 1.0 mg/dL [facility] RBC, UA 251 /HPF [facility] WBC, UA 87 /HPF [facility] Bacteria, UA Rare [facility] Squam Epithel, UA <1 /HPF [facility] Specimen Source [facility] Specimen Urine Performing Organization Address City/State/Zipcode Phone Number [facility] [address] [place] [address] [facility] * Urine culture (09/23/2018 11:48 AM CDT) Only the most recent of 2 results within the time period is included. Result No growth [facility] Specimen Urine Performing Organization Address City/State/Zipcode Phone Number [facility] [address] [place] [address] [facility] * [place] [facility] Picking Technician in [place] 30 minute increments (09/18/2018 9:15 PM CDT) Specimen Narrative Performed At PROCEDURE PERFORMED IN O.R. - PLEASE REFER TO THE INTRAOPERATIVE [facility] REPORT. Procedure Note Interface, External Ris In - 10/03/2018 4:55 PM CDT PROCEDURE PERFORMED IN O.R. - PLEASE REFER TO THE INTRAOPERATIVE REPORT. Performing Organization Address City/State/Zipcode Phone Number [facility] * US renal complete (09/18/2018 11:52 AM CDT) Specimen Narrative Performed At FINAL REPORT [facility] Renal ultrasound, 09/18/2018 Grayscale and limited Doppler [...] MD Report Verified Date/Time:09/18/2018 12:06:53 Reading Location: [address] Ultrasound Reading Room Procedure Note Interface, [...] Report Verified Date/Time: 09/18/2018 12:06:53 Reading Location: [facility] [id number] Ultrasound Reading Room Performing Organization Address City/State/Zipcode Phone Number [facility] * Comprehensive metabolic panel (09/16/2018 4:03 AM GUM SPRAYER) Only the most recent of 2 results within the time period is included. Protein, Total 6.3 6.0 - 8.3 gm/dL [facility] Albumin 3.0 (L) 3.5 - 5.0 g/dL [facility] Alkaline Phosphatase 64 40 - 150 U/L [facility] Total Bilirubin 0.2 0.2 - 1.2 mg/dL [facility] Sodium 135 (L) 136 - 145 meq/L [facility] Potassium 4.0 3.5 - 5.1 meq/L [facility] Chloride 98 98 - 107 meq/L [facility] CO2 28 22 - 29 meq/L [facility] BUN 22 (H) 7 - 21 mg/dL [facility] Creatinine 1.60 (H) 0.57 - 1.25 mg/dL [facility] Glucose 99 70 - 105 mg/dL [facility] Calcium 10.1 8.4 - 10.2 mg/dL [facility] AST 12 5 - 34 U/L [facility] ALT <6 (L) 6 - 55 U/L [facility] EGFR 33Comment: ESTIMATED GFR IS mL/min/1.73 sq m [facility] NOT ACCURATE CREATININE [facility] CLEARANCE IN PREDICTING GLOMERULAR FILTRATION RATE. ESTIMATED GFR IS NOT APPLICABLE FOR DIALYSIS PATIENTS. Specimen Blood Performing Organization Address City/State/Zipcode Phone Number [facility] [address] [place] [address] [facility] * CT drainage abdominal (09/15/2018 4:54 PM GUM SPRAYER) Specimen Narrative Performed At FINAL REPORT [facility] PROCEDURE: Pelvic abscess drainage. Dose modulation, iterative [...] Successful placement of a right pelvic 8 Luxembourger drainage catheter with aspiration of 30 mL of purulent fluid. Signed: Kaleb Carrion MD Report Verified Date/Time:09/15/2018 20:12:36 Reading Location: [facility] B1 C013Y CT Body Reading Room Procedure Note Interface, External Ris In - 09/15/2018 8:14 PM GUM SPRAYER FINAL REPORT PROCEDURE: Pelvic abscess drainage. Dose [...] Successful placement of a right pelvic 8 Luxembourger drainage catheter with aspiration of 30 mL of purulent fluid. Signed: Kaleb Carrion MD Report Verified Date/Time: 09/15/2018 20:12:36 Reading Location: [facility] B1 C013Y CT Body Reading Room Performing Organization Address City/State/Zipcode Phone Number [facility] * Body fluid culture + gram stain (09/15/2018 4:44 PM GUM SPRAYER) Result ENTEROBACTER CLOACAE COMPLEX [facility] (A) [facility] Result ESCHERICHIA COLI (A) [facility] Gram Stain Result 2+ WBCs [facility] Gram Stain Result <1+ gram positive rods [facility] Specimen Body Fluid Antibiotic Method Susceptibility Organism Amikacin <=2: Susceptible [...] coli Performing Organization Address City/State/Zipcode Phone Number [facility] [address] [place] [address] [facility] * CT abdomen/pelvis without iv contrast (09/15/2018 12:34 PM GUM SPRAYER) Specimen Narrative Performed At FINAL REPORT [facility] TECHNIQUE: CT of the abdomen and pelvis [...] MD Report Verified Date/Time:09/15/2018 13:36:13 Reading Location: [facility] C013Y CT Body Reading Room Procedure Note Interface, External Ris In - 09/15/2018 1:38 PM GUM SPRAYER FINAL REPORT TECHNIQUE: CT of the abdomen [...] Report Verified Date/Time: 09/15/2018 13:36:13 Reading Location: [facility] B1 C013Y CT Body Reading Room Performing Organization Address City/[facility]/Zipcode Phone Number [facility] * Urea Nitrogen, random urine (09/15/2018 8:59 AM GUM SPRAYER) Urea Nitrogen, Ur 122 mg/dL [facility] Specimen Urine Narrative Performed At Reference Range: No Normals [facility] Performing Organization Address City/[facility]/Zipcode Phone Number [facility] [address] [place] [address] MED[facility]ENTER * Sodium, random urine (09/15/2018 8:59 AM GUM SPRAYER) Sodium Urine 114 meq/L [facility] Specimen Urine Narrative Performed At Reference Range: No Normals [facility] Performing Organization Address City/[facility] Phone Number [facility] [address] [place] [phone] [facility] * Creatinine, random urine (09/15/2018 8:59 AM GUM SPRAYER) Creatinine, Ur 18.3 mg/dL [facility] Specimen Urine Narrative Performed At Reference Range: No Normals [facility] Performing Organization Address City/[facility] Phone Number [facility] [address] [place] [address] [facility] * Urinalysis w/Microscopic (09/15/2018 8:59 AM GUM SPRAYER) Color, UA Yellow [facility] Clarity, UA Clear [facility] Specific [place], UA 1.007 1.001 - 1.035 [facility] pH, UA 7.5 5.0 - 8.0 [facility] Protein, UA 20 mg/dL (A) Negative [facility] Glucose, UA Negative Negative [facility] Ketones, UA Negative Negative [facility] Bilirubin, UA Negative Negative [facility] Blood, UA Moderate (A) Negative [facility] Nitrite, UA Negative Negative [facility] Leukocytes, UA Moderate (A) Negative [facility] Urobilinogen, UA 0.2 0.2 - 1.0 mg/dL [facility] RBC, UA 12 /HPF [facility] WBC, UA 11 /HPF [facility] Bacteria, UA Rare [facility] Crystals, Urine Rare [facility] Specimen Source Urine, Voided [facility] Specimen Urine Performing Organization Address [facility]/Zipcode Phone Number [facility] [address] [place] [address] [facility] * Prealbumin (09/14/2018 3:04 PM GUM SPRAYER) Prealbumin 15Comment: Specimen slightly 14 - 45 mg/dL [facility] hemolyzed [facility] Specimen Blood Performing Organization Address [facility]/Zipcode Phone Number [facility] [address] [place] [address] [facility] * Hemoglobin A1c (09/13/2018 5:29 AM GUM SPRAYER) Hemoglobin A1C 6.1 4.3 - 6.1 % [facility] Specimen Blood Performing Organization Address [facility] Phone Number [facility] [address] [place] [address] * CT abdomen/pelvis with IV contrast (09/11/2018 10:32 AM GUM SPRAYER) Only the most recent of 3 results within the time period is included. Specimen Narrative Performed At FINAL REPORT [facility] CT abdomen and pelvis with contrast History: [...] MD Report Verified Date/Time:09/11/2018 10:48:56 Reading Location: [facility] Diagnostic Imaging Reading Room - [place] [id number] Procedure Note Interface, External Ris In - 09/11/2018 10:51 AM GUM SPRAYER FINAL REPORT CT abdomen and pelvis with [...] Report Verified Date/Time: 09/11/2018 10:48:56 Reading Location: [facility] Diagnostic Imaging Reading Room - [place] [address] Performing Organization Address City/State/Zipcode Phone Number [facility] * TRANSFUSION SERVICE REPORT - SCAN (09/04/2018 6:01 PM GUM SPRAYER) Only the most recent of 4 results within the time period is included. Narrative Performed At * Prepare Leuko-Red RBC (09/03/2018 11:54 PM GUM SPRAYER) Only the most recent of 2 results within the time period is included. CROSSMATCH COMPATIBLE [place]AF[place] Unit ABO A Pos [facility] [place] UNIT NUMBER [id number] [place] Status TX_TIMEINCHART [facility] Blood Bank Product RED BLOOD CELLS [place] PRODUCT CODE [id number] [place] Specimen Other Performing Organization Address [facility] Phone Number [place] * Blood gas, arterial (09/03/2018 4:46 AM GUM SPRAYER) Only the most recent of 16 results within the time period is included. pH, Arterial 7.52 (H) 7.35 - 7.45 [facility] pCO2, Arterial 43 35 - 45 mmHg [facility] pO2, Arterial 93 (H) 80 - 90 mmHg [facility] O2 Sat, Arterial 97.6 (H) 96.0 - 97.0 % [facility] HCO3, Arterial 34 (H) 21 - 29 mmol/L [facility] Base Excess, Arterial 10.5 (H) -2.0 - 3.0 mmol/L [facility] Patient Temperature 37.5 C [facility] FIO2 55.0 % [facility] Specimen Blood, Arterial Performing Organization Address City/[facility]/Zipcode Phone Number [facility] [address] [place] [address] [phone] * Transfuse Leuko-Red RBC (09/02/2018 10:58 AM GUM SPRAYER) Only the most recent of 2 results within the time period is included. * Type and screen, automated (09/02/2018 6:22 AM GUM SPRAYER) Only the most recent of 3 results within the time period is included. ABO/RH AUTOMATED (BEAKER) A POSITIVE [facility] Ab Scrn NEGATIVE [facility] Specimen Blood Performing Organization Address City/State/Zipcode Phone Number [address] [address] [phone] [address] * XR abdomen / KUB 1 view (09/01/2018 7:18 PM GUM SPRAYER) Only the most recent of 3 results within the time period is included. Specimen Narrative Performed At FINAL REPORT [facility] TECHNIQUE: Single View of the Abdomen. INDICATION: [...] MD Report Verified Date/Time:09/01/2018 20:11:49 Reading Location: [address] Consult Reading Room Procedure Note Interface, External Ris In - 09/01/2018 8:13 PM GUM SPRAYER FINAL REPORT TECHNIQUE: Single View of the [...] Report Verified Date/Time: 09/01/2018 20:11:49 Reading Location: [facility] C013W Consult Reading Room Performing Organization Address City/State/Zipcode Phone Number [facility] * ECHOCARDIOGRAM REPORT - SCAN (08/31/2018 9:21 PM GUM SPRAYER) Narrative Performed At * 2D Echo W/Doppler(CW/PW/Color) (08/31/2018 11:58 AM GUM SPRAYER) Ejection Fraction [facility] [employer] [facility] Specimen Narrative Performed At Transthoracic Echocardiography Report (TTE) [facility] Demographics [employer] [facility] Patient Name CHARITY,Date of Study 08/31/2018 LEONARDA [id number] Female Visit Number [id number] Room Number 6A11 Number Date of Birth1960Referring Physician Julieth Martinez Age58 year(s)Supply Service Worker Ladonna Rahman, CS AnalystAlex Marti Cm Physician Procedure Type of Study TTE procedure:2DECHO W [...] External Ris In - 08/31/2018 2:52 PM GUM SPRAYER Transthoracic Echocardiography Report (TTE) Demographics Patient Name CHARITY, Date of Study 08/31/2018 LEONARDA Gender Female Visit Number [id number] Race Room Number 6A11 Number Date of 1960 Referring Physician Julieth [place] Age 58 year(s) Supply Service Worker Ladonna Rahman, [facility] [[email or web address]] Can Line Operator Bob Kidd Interpreting Physician ODILIA Ryan Procedure [...] LVOT CI: 4.54 l/min/m^2 Performing Organization Address City/State/[facility] Phone Number [facility] [employer] [facility] * Blood gas, venous (08/31/2018 3:40 AM GUM SPRAYER) Only the most recent of 3 results within the time period is included. pH, Merlin 7.49 (H) 7.32 - 7.42 [facility] pCO2, Merlin 53 (H) 41 - 51 mmHg [facility] pO2, Merlin 39 25 - 40 mmHg [facility] O2 Sat, Merlin 77.9 (H) 40.0 - 70.0 % [facility] HCO3, Merlin 39 (H) 21 - 29 mmol/L [facility] Base Excess, Merlin 13.9 (H) -2.0 - 3.0 mmol/L [facility] Patient Temperature 36.5 C [facility] FIO2 100.0 % [facility] Specimen Blood Performing Organization Address City/State/Zipcode Phone Number [facility] [address] [place] [address] [facility] * Manual Differential (08/30/2018 3:52 AM GUM SPRAYER) Only the most recent of 6 results within the time period is included. % Neutros 86 % [facility] % Lymphs 4 % [facility] % Monos 5 % [facility] % Eos 3 % [facility] % Bands 2 0 - 10 % [facility] # Neutros 20.47 (H) 1.56 - 6.13 K/ul [facility] # Lymphs 0.95 (L) 1.18 - 3.74 K/ul [facility] # Monos 1.19 (H) 0.24 - 0.36 K/uL [facility] # Eos 0.71 (H) 0.04 - 0.36 K/uL [facility] # Bands 0.48 0.00 - 0.80 K/uL [facility] Total Counted 100 [facility] nRBC (manual) 1 (H) 0 - 0 /100 WBC [facility] WBC Morphology Normal [facility] Platelet Morphology Normal [facility] Hypochromia 1+ few [facility] Anisocytosis 2+ moderate [facility] Microcytes 2+ moderate [facility] Artifact Present [facility] Platelet Conc Increased [facility] Specimen Blood Narrative Performed At Received comment: [facility] User comments: [facility] Slide comments: Performing Organization Address City/[facility] Phone Number [place] [phone] [place] [address] * Calcium, Ionized (08/29/2018 4:08 AM GUM SPRAYER) Only the most recent of 2 results within the time period is included. Calcium, Ion 1.32 (H) 1.12 - 1.27 mmol/L [facility] pH, Blood 7.42 [facility] Specimen Blood Performing Organization Address [facility] Phone Number [place] [phone] [place] [address] * Triglycerides (08/29/2018 4:08 AM GUM SPRAYER) Triglycerides 98 mg/dL [facility] Specimen Blood Narrative Performed At TRIGLYCERIDE REFERENCE RANGE [facility] Low Risk<150 [facility] Borderline Risk 150-199 High [id number] Very High Risk >=500 Performing Organization Address City/[facility] Phone Number [address] [address] [phone] [place] [address] * Vancomycin level, trough (08/25/2018 9:14 PM GUM SPRAYER) Only the most recent of 2 results within the time period is included. Vancomycin Tr 16.9 10.0 - 20.0 ug/mL [facility] Specimen Blood Performing Organization Address City/[facility] Phone Number [place] [phone] [place] [address] [facility] * Sputum Culture + Gram Stain (08/25/2018 1:02 PM GUM SPRAYER) Result See comment [facility] Gram Stain Result 2+ White blood cells seen [facility] Gram Stain Result 0-5 epithelial cells [facility] Gram Stain Result 2+ yeast [facility] Specimen Sputum Narrative Performed At 4+ yeast [facility] Performing Organization Address City/[facility]/Zipcode Phone Number [address] [address] [facility] * Blood culture (08/25/2018 1:01 PM GUM SPRAYER) Only the most recent of 4 results within the time period is included. Result No growth in 5 days [facility] Specimen Blood Performing Organization Address City/[facility] Phone Number [address] [address] [facility] * CBC (Hemogram only) (08/22/2018 8:16 PM GUM SPRAYER) WBC 11.3 (H) 3.5 - 10.5 K/L [facility] RBC 3.98 3.93 - 5.22 M/L [facility] Hemoglobin 9.6 (L) 11.2 - 15.7 GM/DL [facility] Hematocrit 32.2 (L) 34.1 - 44.9 % [facility] MCV 80.9 79.4 - 94.8 fL [facility] MCH 24.1 (L) 25.6 - 32.2 pg [facility] MCHC 29.8 (L) 32.2 - 35.5 GM/DL [facility] RDW 16.7 (H) 11.7 - 14.4 % [facility] Platelets 525 (H) 150 - 450 K/CU MM [facility] MPV 10.1 9.4 - 12.3 fL [facility] nRBC 0 0 - 0 /100 WBC [facility] Specimen Blood Performing Organization Address City/State/Zipcode Phone Number [facility] [address] [place] [address] [facility] * Anaerobic culture (08/22/2018 5:11 PM GUM SPRAYER) Result BACTEROIDES [place]OMICRON [facility] ([facility] Result ANAEROBIC GRAM-POSITIVE [facility] BACILLUS (A)Comment: No [facility] further workup performed Specimen Other Performing Organization Address City/State/Zipcode Phone Number [facility] [address] [place] [address] [facility] * Surgically obtained culture + gram stain (08/22/2018 5:11 PM GUM SPRAYER) Result ENTEROBACTER CLOACAE COMPLEX [facility] () [facility] Result ESCHERICHIA COLI (A) [facility] Result HELIO ALBICANS (A) [facility] Gram Stain Result 3+ WBCs [facility] Gram Stain Result 1+ gram positive rods [facility] Gram Stain Result <1+ budding yeast [facility] Specimen Tissue Antibiotic Method Susceptibility Organism Amikacin <=2: Susceptible [...] <=20: Susceptible Escherichia coli Performing Organization Address [facility] Phone Number [address] * Potassium-Stat Lab (08/22/2018 5:05 PM GUM SPRAYER) Potassium 4.3 3.6 - 5.5 meq/L [facility] Specimen Blood, Arterial Performing Organization Address [facility] Phone Number [address] * Sodium Na-Stat Lab (08/22/2018 5:05 PM GUM SPRAYER) Sodium 134 (L) 135 - 148 meq/L [facility] Specimen Blood, Arterial Performing Organization Address [facility] Phone Number [address] * Glucose-Stat Lab (08/22/2018 5:05 PM GUM SPRAYER) Glucose 159 (H) 70 - 110 mg/dL [facility] Specimen Blood, Arterial Performing Organization Address [facility] Phone Number [address] * HGB/HCT (H&H)-Stat Lab (08/22/2018 5:05 PM GUM SPRAYER) Hemoglobin 9.2 (L) 12.0 - 15.0 g/dL [facility] Hematocrit 27.0 (L) 36.0 - 45.0 % [facility] Specimen Blood, Arterial Performing Organization Address [facility] Phone Number [facility] [address] [place] [phone] [place] [address] * ABORH, manual (08/22/2018 4:15 PM GUM SPRAYER) ABO Grouping A [facility] Rh Factor POS [facility] Specimen Blood Performing Organization Address [facility] Phone Number [address] * ECG 12 lead (08/22/2018 3:31 AM GUM SPRAYER) Specimen Narrative Performed At Ventricular Rate 108 BPM GE MUSE Atrial Rate 108 BPM P-R Interval 146 ms QRS Duration 104 ms Q-T Interval 344 ms QTC Calculation(Bazett) 460 ms P Eagle 62 degrees R Eagle 62 degrees T Eagle 25 degrees Sinus tachycardia Borderline criteria for Possible Inferior infarct , age undetermined Prolonged QT Abnormal ECG No previous ECGs available Confirmed by Ramon RICARDO BASANT ([id number]) on 08/23/2018 12:43:57 PM Procedure Note Interface, External Ris In - 08/23/2018 12:44 PM GUM SPRAYER Ventricular Rate 108 BPM Atrial Rate 108 BPM P-R Interval 146 ms QRS Duration 104 ms Q-T Interval 344 ms QTC Calculation(Bazett) 460 ms P Eagle 62 degrees R Eagle 62 degrees T Eagle 25 degrees Sinus tachycardia Borderline criteria for Possible Inferior infarct , age undetermined Prolonged QT Abnormal ECG No previous ECGs available Confirmed by Ramon RICARDO BASANT ([id number]) on 08/23/2018 12:43:57 PM Performing Organization Address City/[facility]/Zipcode Phone Number GE [facility] * Lactic acid, venous, whole blood (08/22/2018 3:04 AM GUM SPRAYER) Lactate, Venous 0.8 0.5 - 2.2 mmol/L [facility] Specimen Blood Performing Organization Address City/[facility]/Zipcode Phone Number [facility] [address] [place] [address] [phone] [place] [address] after 12/14/2017 Insurance Payer Benefit Subscriber ID Type Phone Address Plan / Group [employer] H[employer] xxxxxxxxx HMO/POS CARE POS SELECT CHOICE Advance Directives For more information, please contact: [facility] [address] [place] [address] Date Inactivated Comments Code Status Date Activated 09/26/2018 6:04 PM Full Code 08/22/2018 2:32 AM This code status was determined by: Patient
[2018-12-15] MEDS ORDERED: SODIUM CHLORIDE 0.9% 1000ML 1,000 ML ONE (01:38)
[2018-12-15 01:40] LABS: BASOPHILS # (AUTO) 0.1 (0.0-0.1); BASOPHILS % 0.3 % (0.0-1.0); EOSINOPHILS # (AUTO) 0.1 (0.0-0.4); EOSINOPHILS % 0.6 % (0.0-6.0); HEMATOCRIT 28.6 % (34.2-44.1); HEMOGLOBIN 8.6 g/dL (12.0-16.0); LYMPHOCYTES # (AUTO) 2.7 (1.0-3.2); LYMPHOCYTES % 11.7 % (18.0-39.1); MEAN CORPUSCULAR HEMOGLOBIN 23.4 pg (28-32); MEAN CORPUSCULAR HGB CONC 30.1 g/dL (31-35); MEAN CORPUSCULAR VOLUME 77.7 fL (81-99); MONOCYTES # (AUTO) 1.3 (0.2-0.8); MONOCYTES % 5.5 % (4.4-11.3); NEUTROPHILS # (AUTO) 18.7 (2.1-6.9); NEUTROPHILS % 80.6 % (38.7-80.0); PLATELET COUNT 811 x10e3/uL (140-360); RED BLOOD COUNT 3.68 x10e6/uL (3.6-5.1); RED CELL DISTRIBUTION WIDTH 16.7 % (11.7-14.4)
[2018-12-15] MEDS ORDERED: SODIUM CHLORIDE 0.9% 1000ML 1,000 ML IV ONE (01:45)
[2018-12-15 02:00] LABS: ALBUMIN 2.5 g/dL (3.5-5.0); ALBUMIN/GLOBULIN RATIO 0.5 (0.8-2.0); ANION GAP 21.9 mmol/L (8-16); CALCIUM 11.4 mg/dL (8.4-10.2); CREATININE, SERUM 1.96 mg/dL (0.57-1.11)
[2018-12-15 02:02] LABS: POTASSIUM 6.9 mmol/L (3.5-5.1)
[2018-12-15] MEDS ORDERED: ALBUTEROL SULF 0.083% NEB SOLN 3 ML NEB NEB STA (02:05)
[2018-12-15] MEDS ORDERED: CALCIUM CHLORIDE 10% 1.36 MEQ/ML 10ML SYR IV STA (02:05)
[2018-12-15] MEDS ORDERED: DEXTROSE 50% SYRINGE 50 ML IV STA (02:05)
[2018-12-15] MEDS ORDERED: SODIUM BICARBONATE 8.4% INJ 50 ML SYR IV STA (02:05)
[2018-12-15] MEDS ORDERED: SODIUM CHLORIDE 0.9% 50ML 50 ML ONE (02:14)
[2018-12-15] MEDS ORDERED: INSULIN REGULAR, HUMAN 100 UNIT/1 ML 3ML VIAL IV ONE (02:15)
[2018-12-15] MEDS ORDERED: SODIUM BICARBONATE 8.4% 150 ML in DEXTROSE 5% 1,000 ML IV ONE (02:30)
[2018-12-15] MEDS ORDERED: SOD POLYSTYRENE SULFONATE SUSP 15 GM/60 ML BTL PO ONE (02:30)
[2018-12-15] MEDS ORDERED: DEXTROSE 5% 1,000 ML IV ONE (02:38)
[2018-12-15] MEDS ORDERED: SODIUM BICARBONATE 8.4% SYRING 100 ML ONE (02:42)
--- NOTE | 2018-12-15 02:48 | Diagnostic Imaging Report ---
Veins: Head and cervical spine CTs without IV contrast History: Fall trauma, fall, pain Comparison studies: None Technique: Axial images were obtained from the brain and cervical spine. Coronal and sagittal images reconstructed from the axial data. Dose modulation, iterative reconstruction, and/or weight based adjustment of the mA/kV was utilized to reduce the radiation dose to as low as reasonably achievable. Intravenous contrast: None Findings: Head CT: Scalp: No abnormalities. Bones: No fractures, blastic or lytic lesions. Extra-axial spaces: No masses. No fluid collections. Brain sulci: Mildly prominent. Ventricles: Mild compensatory dilatation. No hydrocephalus. Parenchyma: No mass, acute hemorrhage or acute cortical vascular insults. A few subtle hypodensities in the supratentorial white matter are nonspecific but most compatible with chronic small vessel ischemic changes. Sellar/suprasellar region: No abnormalities. Craniocervical junction: The foramen magnum is patent. No Chiari one malformation. Cervical spine CT: Fractures: None. Soft tissues: No gross abnormalities. Atlantoaxial articulation: Intact. Alignment: Normal lordosis. No scoliosis. Cervicomedullary junction: No abnormalities. The foramen magnum is patent. Vertebrae: No infection or neoplasm. Degenerative changes: Disc height is maintained. Patent canal and foramina. IMPRESSION: Head CT: 1. No acute abnormalities. 2. Mild generalized brain volume loss. 3. Mild chronic microvascular ischemic changes. Cervical spine CT: 1. No cervical spine fracture or subluxation. 2. Cannot exclude ligament, spinal cord and or vascular abnormalities on the basis of this examination. Signed by: Dr. Guanaco Arzate M.D. on 12/15/2018 2:45 AM
--- NOTE | 2018-12-15 02:55 | Diagnostic Imaging Report ---
History: Trauma, fall Comparison studies: None Technique: Axial images were obtained through the lumbar spine.. Coronal and sagittal images reconstructed from the axial data. Dose modulation, iterative reconstruction, and/or weight based adjustment of the mA/kV was utilized to reduce the radiation dose to as low as reasonably achievable. Intravenous contrast: None Findings: Number of non-rib bearing vertebral bodies: 5 Alignment: Normal lordosis. No subluxations. Mild thoracolumbar curvature convex to the right is nonspecific and may be positional. Soft tissues: No acute abnormalities. Paraspinal muscles: Unremarkable. Sacroiliac joints: Mild degenerative changes bilaterally. Vertebrae: No fractures, infection or neoplasm. Degenerative changes: Disc height is maintained. Patent canal and foramina. Additional findings: Scattered calcified atherosclerosis in the aorta. Partially imaged bilateral ureteral stents with hydroureteronephrosis, periureteral stranding and partially imaged uterine malignancy within the pelvis. IMPRESSION: 1. No lumbar spine fracture or subluxation. 2. 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 Signed by: Dr. Guanaco Arzate M.D. on 12/15/2018 2:51 AM
--- NOTE | 2018-12-15 03:12 | Diagnostic Imaging Report ---
PELVIS AP 1-2 VIEWS - 1 view HISTORY: Pain COMPARISON: None available. FINDINGS: Limited by generalized demineralization and rotation. No definite acute displaced fracture or dislocation visualized. Bilateral nephroureteral stents in place. IMPRESSION: No definite evidence of acute displaced fracture or dislocation. If there is high clinical concern for fracture, consider repeat study with additional views and better positioning of patient. Signed by: Dr. Burton Lopez MD on 12/15/2018 3:08 AM
--- NOTE | 2018-12-15 03:13 | Diagnostic Imaging Report ---
EXAMINATION: CHEST SINGLE (PORTABLE) INDICATION: ^s/p fall ^[id number] ^[id number] ^Y COMPARISON: None FINDINGS: AP view TUBES and LINES: None. LUNGS: Lungs are well inflated. Lungs are clear. There is no evidence of pneumonia or pulmonary edema. PLEURA: No pleural effusion or pneumothorax. HEART AND MEDIASTINUM: The cardiac silhouette is enlarged. BONES AND SOFT TISSUES: No acute osseous lesion. Soft tissues are unremarkable. UPPER ABDOMEN: No free air under the diaphragm. IMPRESSION: No acute thoracic abnormality. Signed by: Dr. Burton Lopez MD on 12/15/2018 3:10 AM
[2018-12-15] MEDS ORDERED: SODIUM BICARBONATE 8.4% SYRING 50 ML ONE (03:14)
[2018-12-15 03:15] LABS: BILIRUBIN,URINE NEGATIVE (NEGATIVE); CLARITY,URINE CLOUDY (CLEAR); COLOR,URINE RED (YELLOW); KETONES,URINE NEGATIVE (NEGATIVE); NITRITE,URINE NEGATIVE (NEGATIVE); URINE UROBILINOGEN 0.2 mg/dL (0.2 - 1)
[2018-12-15] MEDS ORDERED: ONDANSETRON HCL INJ 2MG/ML 2ML 2 MG/ML VIAL IV PRN (03:15)
[2018-12-15] MEDS ORDERED: CEFTRIAXONE SOD 1 GM/NS 50 ML 50 ML IV SCH (03:15)
[2018-12-15 03:16] LABS: PROTEIN,URINE DIPSTICK 3+ (NEGATIVE)
[2018-12-15 03:17] LABS: LEUKOCYTE ESTERASE ,URINE TRACE (NEGATIVE)
[2018-12-15 03:18] LABS: BACTERIA,URINE RARE /HPF; EPITHELIAL CELLS,URINE RARE /LPF; RBC,URINE >50 /HPF (0-5)
--- OUTSIDE RECORDS SUMMARY | 2018-12-15 03:23 | XMS REPORT | Clinical Summary ---
Author Author DARYN [facility] Address Unknown Phone Unavailable Care Team Providers Care Lead Assembler Name Role Phone PCP Unavailable Allergies No [...] type; Hypomagnesemia; Hypoxemia requiring supplemental oxygen 08/22/2018 [facility] General Internal Medicine - Encounter 09/26/2018 08/22/2018 [...] CDT Oxygen Saturation 94% 09/08/2018 1:30 PM ENGINEERED WOOD DESIGNER Inhaled Oxygen 36% Concentration 09/25/2018 4:59 AM CDT Weight 59.2 kg (130 lb 9.6 oz) 08/22/2018 2:00 AM ENGINEERED WOOD DESIGNER Height 154.9 cm (5' 1") 09/25/2018 4:59 AM CDT Body Mass Index 24.68 Plan of Treatment Not on file Implants Device Identifier Shelf Expiration Date Model / Serial / Lot Implanted Type Area Manufactur er 10/08/2018 [id number] / N/A / [id number] Stent Uret Cntour Inj [id number] IMPLANTS Left: Ureter [employer] [id number] - Sn/A SCI:UROLOG Implanted: Qty: 1 on 09/18/2018 by Rolan/Wai Hollis MD GY 10/08/2018 [id number] / N/A / [id number] Stent Uret Cntour Inj [id number] IMPLANTS Right: Ureter [employer] [id number] - Sn/A SCI:UROLOG Implanted: Qty: 1 on [...] METER Routine 09/18/2018 9:35 PM CDT FL POTTER OR CERAMIC ARTIST IN OR 30 Routine 09/18/2018 MINUTE INCREMENTS [...] CDT POCT-GLUCOSE METER Routine 09/16/2018 8:58 PM ENGINEERED WOOD DESIGNER POCT-GLUCOSE METER Routine 09/16/2018 5:54 PM ENGINEERED WOOD DESIGNER POCT-GLUCOSE METER Routine 09/16/2018 11:24 AM ENGINEERED WOOD DESIGNER XR CHEST 1 VIEW Routine 09/16/2018 PORTABLE/BEDSIDE 10:09 AM ENGINEERED WOOD DESIGNER POCT-GLUCOSE METER Routine 09/16/2018 7:31 AM ENGINEERED WOOD DESIGNER CBC W/PLT COUNT & AUTO Routine 09/16/2018 DIFFERENTIAL 4:03 AM ENGINEERED WOOD DESIGNER COMPREHENSIVE METABOLIC Routine 09/16/2018 PANEL 4:03 AM ENGINEERED WOOD DESIGNER PHOSPHORUS Routine 09/16/2018 4:03 AM ENGINEERED WOOD DESIGNER MAGNESIUM Routine 09/16/2018 4:03 AM ENGINEERED WOOD DESIGNER PT/APTT Routine 09/16/2018 4:03 AM ENGINEERED WOOD DESIGNER CBC W/PLT COUNT & AUTO Routine 09/16/2018 DIFFERENTIAL 4:03 AM ENGINEERED WOOD DESIGNER POCT-GLUCOSE METER Routine 09/15/2018 9:10 PM ENGINEERED WOOD DESIGNER POCT-GLUCOSE METER Routine 09/15/2018 6:17 PM ENGINEERED WOOD [employer] CT DRAINAGE ABDOMINAL Routine 09/15/2018 4:54 PM ENGINEERED WOOD DESIGNER BODY FLUID CULTURE + GRAM SHIVANI 09/15/2018 STAIN 4:44 PM ENGINEERED WOOD DES[employer]ER CT ABDOMEN/PELVIS WITHOUT Routine 09/15/2018 IV CONTRAST 12:34 PM ENGINEERED WOOD DESIGNER XR CHEST 1 VIEW Routine 09/15/2018 PORTABLE/BEDSIDE 9:51 AM ENGINEERED WOOD DESIGNER URINALYSIS W/ MICROSCOPIC Routine 09/15/2018 8:59 AM ENGINEERED WOOD DESIGNER UREA NITROGEN, RANDOM Routine 09/15/2018 URINE 8:59 AM ENGINEERED WOOD DESIGNER CREATININE, RANDOM URINE Routine 09/15/2018 8:59 AM ENGINEERED WOOD DESIGNER SODIUM, RANDOM URINE Routine 09/15/2018 8:59 AM ENGINEERED WOOD DESIGNER POCT-GLUCOSE METER Routine 09/15/2018 7:58 AM ENGINEERED WOOD DESIGNER CBC W/PLT COUNT & AUTO Routine 09/15/2018 DIFFERENTIAL 4:15 AM ENGINEERED WOOD DESIGNER CBC W/PLT COUNT & AUTO Routine 09/15/2018 DIFFERENTIAL 4:15 AM ENGINEERED WOOD DESIGNER PHOSPHORUS Routine 09/15/2018 4:15 AM ENGINEERED WOOD DESIGNER MAGNESIUM Routine 09/15/2018 4:15 AM ENGINEERED WOOD DESIGNER BASIC METABOLIC PANEL (7) Routine 09/15/2018 4:15 AM ENGINEERED WOOD DESIGNER PT/APTT Routine 09/15/2018 4:15 AM ENGINEERED WOOD DESIGNER CBC W/PLT COUNT & AUTO Routine 09/15/2018 DIFFERENTIAL 4:15 AM ENGINEERED WOOD DESIGNER CBC W/PLT COUNT & AUTO Routine 09/15/2018 DIFFERENTIAL 4:15 AM ENGINEERED WOOD DESIGNER BASIC METABOLIC PANEL (7) Routine 09/15/2018 4:15 AM ENGINEERED WOOD DESIGNER POCT-GLUCOSE METER Routine 09/14/2018 8:54 PM ENGINEERED WOOD DESIGNER POCT-GLUCOSE METER Routine 09/14/2018 6:26 PM ENGINEERED WOOD DESIGNER PREALBUMIN Routine 09/14/2018 3:04 PM ENGINEERED WOOD DESIGNER POCT-GLUCOSE METER Routine 09/14/2018 9:03 AM ENGINEERED WOOD DESIGNER XR CHEST 1 VIEW Routine 09/14/2018 PORTABLE/BEDSIDE 7:38 AM ENGINEERED WOOD DESIGNER CBC W/PLT COUNT & AUTO Routine 09/14/2018 DIFFERENTIAL 4:42 AM ENGINEERED WOOD DESIGNER CBC W/PLT COUNT & AUTO Routine 09/14/2018 DIFFERENTIAL 4:42 AM ENGINEERED WOOD DESIGNER PHOSPHORUS Routine 09/14/2018 4:42 AM ENGINEERED WOOD DESIGNER MAGNESIUM Routine 09/14/2018 4:42 AM ENGINEERED WOOD DESIGNER BASIC METABOLIC PANEL (7) Routine 09/14/2018 4:42 AM ENGINEERED WOOD DESIGNER PT/APTT Routine 09/14/2018 4:42 AM ENGINEERED WOOD DESIGNER CBC W/PLT COUNT & AUTO Routine 09/14/2018 DIFFERENTIAL 4:42 AM ENGINEERED WOOD DESIGNER CBC W/PLT COUNT & AUTO Routine 09/14/2018 DIFFERENTIAL 4:42 AM ENGINEERED WOOD DESIGNER BASIC METABOLIC PANEL (7) Routine 09/14/2018 4:42 AM ENGINEERED WOOD DESIGNER POCT-GLUCOSE METER Routine 09/13/2018 9:10 PM ENGINEERED WOOD DESIGNER POCT-GLUCOSE METER Routine 09/13/2018 6:00 PM ENGINEERED WOOD DESIGNER POCT-GLUCOSE METER Routine 09/13/2018 5:04 PM ENGINEERED WOOD DESIGNER XR CHEST 1 VIEW Routine 09/13/2018 PORTABLE/BEDSIDE 6:21 AM ENGINEERED WOOD DESIGNER CBC W/PLT COUNT & AUTO Routine 09/13/2018 DIFFERENTIAL 5:29 AM ENGINEERED WOOD DESIGNER HEMOGLOBIN A1C Routine 09/13/2018 5:29 AM ENGINEERED WOOD DESIGNER CBC W/PLT COUNT & AUTO Routine 09/13/2018 DIFFERENTIAL 5:29 AM ENGINEERED WOOD DESIGNER BASIC METABOLIC PANEL (7) Routine 09/13/2018 5:29 AM ENGINEERED WOOD DESIGNER CBC W/PLT COUNT & AUTO Routine 09/13/2018 DIFFERENTIAL 4:54 AM ENGINEERED WOOD DESIGNER PHOSPHORUS Routine 09/13/2018 4:54 AM ENGINEERED WOOD DESIGNER MAGNESIUM Routine 09/13/2018 4:54 AM ENGINEERED WOOD DESIGNER BASIC METABOLIC PANEL (7) Routine 09/13/2018 4:54 AM ENGINEERED WOOD DESIGNER PT/APTT Routine 09/13/2018 4:54 AM ENGINEERED WOOD DESIGNER CBC W/PLT COUNT & AUTO Routine 09/13/2018 DIFFERENTIAL 4:54 AM ENGINEERED WOOD DESIGNER POCT-GLUCOSE METER Routine 09/12/2018 10:35 PM ENGINEERED WOOD DESIGNER POCT-GLUCOSE METER Routine 09/12/2018 9:56 PM ENGINEERED WOOD DESIGNER POCT-GLUCOSE METER Routine 09/12/2018 5:57 PM ENGINEERED WOOD DESIGNER POCT-GLUCOSE METER Routine 09/12/2018 5:09 PM ENGINEERED WOOD DESIGNER POCT-GLUCOSE METER Routine 09/12/2018 7:46 AM ENGINEERED WOOD DESIGNER XR CHEST 1 VIEW Routine 09/12/2018 PORTABLE/BEDSIDE 7:25 AM ENGINEERED WOOD DESIGNER CBC W/PLT COUNT & AUTO Routine 09/12/2018 DIFFERENTIAL 4:10 AM ENGINEERED WOOD DESIGNER PHOSPHORUS Routine 09/12/2018 4:10 AM ENGINEERED WOOD DESIGNER MAGNESIUM Routine 09/12/2018 4:10 AM ENGINEERED WOOD DESIGNER BASIC METABOLIC PANEL (7) Routine 09/12/2018 4:10 AM ENGINEERED WOOD DESIGNER PT/APTT Routine 09/12/2018 4:10 AM ENGINEERED WOOD DESIGNER CBC W/PLT COUNT & AUTO Routine 09/12/2018 DIFFERENTIAL 4:10 AM ENGINEERED WOOD DESIGNER POCT-GLUCOSE METER Routine 09/11/2018 9:10 PM ENGINEERED WOOD DESIGNER POCT-GLUCOSE METER Routine 09/11/2018 6:02 PM ENGINEERED WOOD DESIGNER POCT-GLUCOSE METER Routine 09/11/2018 5:36 PM ENGINEERED WOOD DESIGNER POCT-GLUCOSE METER Routine 09/11/2018 11:44 AM ENGINEERED WOOD DESIGNER CT ABDOMEN/PELVIS WITH IV Routine 09/11/2018 CONTRAST 10:32 AM ENGINEERED WOOD DESIGNER XR CHEST 1 VIEW Routine 09/11/2018 PORTABLE/BEDSIDE 7:51 AM ENGINEERED WOOD DESIGNER POCT-GLUCOSE METER Routine 09/11/2018 7:21 AM ENGINEERED WOOD DESIGNER CBC W/PLT COUNT & AUTO Routine 09/11/2018 DIFFERENTIAL 5:53 AM ENGINEERED WOOD DESIGNER PHOSPHORUS Routine 09/11/2018 5:53 AM ENGINEERED WOOD DESIGNER MAGNESIUM Routine 09/11/2018 5:53 AM ENGINEERED WOOD DESIGNER BASIC METABOLIC PANEL (7) Routine 09/11/2018 5:53 AM ENGINEERED WOOD DESIGNER PT/APTT Routine 09/11/2018 5:53 AM ENGINEERED WOOD DESIGNER CBC W/PLT COUNT & AUTO Routine 09/11/2018 DIFFERENTIAL 5:53 AM ENGINEERED WOOD DESIGNER BASIC METABOLIC PANEL (7) Routine 09/11/2018 5:53 AM ENGINEERED WOOD DESIGNER POCT-GLUCOSE METER Routine 09/10/2018 9:08 PM ENGINEERED WOOD DESIGNER POCT-GLUCOSE METER Routine 09/10/2018 5:58 PM ENGINEERED WOOD DESIGNER POCT-GLUCOSE METER Routine 09/10/2018 12:56 PM ENGINEERED WOOD DESIGNER XR CHEST 1 VIEW Routine 09/10/2018 PORTABLE/BEDSIDE 9:31 AM ENGINEERED WOOD DESIGNER POCT-GLUCOSE METER Routine 09/10/2018 9:27 AM ENGINEERED WOOD DESIGNER CBC W/PLT COUNT & AUTO Routine 09/10/2018 DIFFERENTIAL 7:07 AM ENGINEERED WOOD DESIGNER PHOSPHORUS Routine 09/10/2018 7:07 AM ENGINEERED WOOD DESIGNER MAGNESIUM Routine 09/10/2018 7:07 AM ENGINEERED WOOD DESIGNER BASIC METABOLIC PANEL (7) Routine 09/10/2018 7:07 AM ENGINEERED WOOD DESIGNER PT/APTT Routine 09/10/2018 7:07 AM ENGINEERED WOOD DESIGNER CBC W/PLT COUNT & AUTO Routine 09/10/2018 DIFFERENTIAL 7:07 AM ENGINEERED WOOD DESIGNER POCT-GLUCOSE METER Routine 09/09/2018 9:11 PM ENGINEERED WOOD DESIGNER POCT-GLUCOSE METER Routine 09/09/2018 5:28 PM ENGINEERED WOOD DESIGNER POCT-GLUCOSE METER Routine 09/09/2018 12:52 PM ENGINEERED WOOD DESIGNER XR CHEST 1 VIEW Routine 09/09/2018 PORTABLE/BEDSIDE 9:08 AM ENGINEERED WOOD DESIGNER POCT-GLUCOSE METER Routine 09/09/2018 7:31 AM ENGINEERED WOOD DESIGNER CBC W/PLT COUNT & AUTO Routine 09/09/2018 DIFFERENTIAL 5:15 AM ENGINEERED WOOD DESIGNER PHOSPHORUS Routine 09/09/2018 5:15 AM ENGINEERED WOOD DESIGNER MAGNESIUM Routine 09/09/2018 5:15 AM ENGINEERED WOOD DESIGNER PT/APTT Routine 09/09/2018 5:15 AM ENGINEERED WOOD DESIGNER CBC W/PLT COUNT & AUTO Routine 09/09/2018 DIFFERENTIAL 5:15 AM ENGINEERED WOOD DESIGNER BASIC METABOLIC PANEL (7) Routine 09/09/2018 5:15 AM ENGINEERED WOOD DESIGNER POCT-GLUCOSE METER Routine 09/08/2018 11:39 PM ENGINEERED WOOD DESIGNER POCT-GLUCOSE METER Routine 09/08/2018 5:31 PM ENGINEERED WOOD DESIGNER POCT-GLUCOSE METER Routine 09/08/2018 11:49 AM ENGINEERED WOOD DESIGNER POCT-GLUCOSE METER Routine 09/08/2018 8:13 AM ENGINEERED WOOD DESIGNER XR CHEST 1 VIEW Routine 09/08/2018 PORTABLE/BEDSIDE 7:19 AM ENGINEERED WOOD DESIGNER CBC W/PLT COUNT & AUTO Routine 09/08/2018 DIFFERENTIAL 3:29 AM ENGINEERED WOOD DESIGNER PHOSPHORUS Routine 09/08/2018 3:29 AM ENGINEERED WOOD DESIGNER MAGNESIUM Routine 09/08/2018 3:29 AM ENGINEERED WOOD DESIGNER BASIC METABOLIC PANEL (7) Routine 09/08/2018 3:29 AM ENGINEERED WOOD DESIGNER PT/APTT Routine 09/08/2018 3:29 AM ENGINEERED WOOD DESIGNER CBC W/PLT COUNT & AUTO Routine 09/08/2018 DIFFERENTIAL 3:29 AM ENGINEERED WOOD DESIGNER POCT-GLUCOSE METER Routine 09/08/2018 2:11 AM ENGINEERED WOOD DESIGNER POCT-GLUCOSE METER Routine 09/08/2018 12:46 AM ENGINEERED WOOD DESIGNER POCT-GLUCOSE METER Routine 09/07/2018 9:30 PM ENGINEERED WOOD DESIGNER POCT-GLUCOSE METER Routine 09/07/2018 8:59 PM ENGINEERED WOOD DESIGNER POCT-GLUCOSE METER Routine 09/07/2018 4:41 PM ENGINEERED WOOD DESIGNER POCT-GLUCOSE METER Routine 09/07/2018 9:50 AM ENGINEERED WOOD DESIGNER XR CHEST 1 VIEW Routine 09/07/2018 PORTABLE/BEDSIDE 7:43 AM ENGINEERED WOOD DESIGNER CBC W/PLT COUNT & AUTO Routine 09/07/2018 DIFFERENTIAL 3:54 AM ENGINEERED WOOD DESIGNER PHOSPHORUS Routine 09/07/2018 3:54 AM ENGINEERED WOOD DESIGNER MAGNESIUM Routine 09/07/2018 3:54 AM ENGINEERED WOOD DESIGNER BASIC METABOLIC PANEL (7) Routine 09/07/2018 3:54 AM ENGINEERED WOOD DESIGNER PT/APTT Routine 09/07/2018 3:54 AM ENGINEERED WOOD DESIGNER CBC W/PLT COUNT & AUTO Routine 09/07/2018 DIFFERENTIAL 3:54 AM ENGINEERED WOOD DESIGNER POCT-GLUCOSE METER Routine 09/06/2018 9:00 PM ENGINEERED WOOD DESIGNER POCT-GLUCOSE METER Routine 09/06/2018 5:33 PM ENGINEERED WOOD DESIGNER POCT-GLUCOSE METER Routine 09/06/2018 12:23 PM ENGINEERED WOOD DESIGNER POCT-GLUCOSE METER Routine 09/06/2018 7:37 AM ENGINEERED WOOD DESIGNER XR CHEST 1 VIEW Routine 09/06/2018 PORTABLE/BEDSIDE 7:16 AM ENGINEERED WOOD DESIGNER CBC W/PLT COUNT & AUTO Routine 09/06/2018 DIFFERENTIAL 3:59 AM ENGINEERED WOOD DESIGNER PHOSPHORUS Routine 09/06/2018 3:59 AM ENGINEERED WOOD DESIGNER MAGNESIUM Routine 09/06/2018 3:59 AM ENGINEERED WOOD DESIGNER BASIC METABOLIC PANEL (7) Routine 09/06/2018 3:59 AM ENGINEERED WOOD DESIGNER PT/APTT Routine 09/06/2018 3:59 AM ENGINEERED WOOD DESIGNER CBC W/PLT COUNT & AUTO Routine 09/06/2018 DIFFERENTIAL 3:59 AM ENGINEERED WOOD DESIGNER BASIC METABOLIC PANEL (7) Routine 09/06/2018 3:59 AM ENGINEERED WOOD DESIGNER POCT-GLUCOSE METER Routine 09/05/2018 10:31 PM ENGINEERED WOOD DESIGNER POCT-GLUCOSE METER Routine 09/05/2018 4:57 PM ENGINEERED WOOD DESIGNER POCT-GLUCOSE METER Routine 09/05/2018 11:40 AM ENGINEERED WOOD DESIGNER POCT-GLUCOSE METER Routine 09/05/2018 10:11 AM ENGINEERED WOOD DESIGNER POCT-GLUCOSE METER Routine 09/05/2018 6:07 AM ENGINEERED WOOD DESIGNER CBC W/PLT COUNT & AUTO Routine 09/05/2018 DIFFERENTIAL 4:54 AM ENGINEERED WOOD DESIGNER PHOSPHORUS Routine 09/05/2018 4:54 AM ENGINEERED WOOD DESIGNER MAGNESIUM Routine 09/05/2018 4:54 AM ENGINEERED WOOD DESIGNER BASIC METABOLIC PANEL (7) Routine 09/05/2018 4:54 AM ENGINEERED WOOD DESIGNER PT/APTT Routine 09/05/2018 4:54 AM ENGINEERED WOOD DESIGNER CBC W/PLT COUNT & AUTO Routine 09/05/2018 DIFFERENTIAL 4:54 AM ENGINEERED WOOD DESIGNER XR CHEST 1 VIEW Routine 09/05/2018 PORTABLE/BEDSIDE 4:42 AM ENGINEERED WOOD DESIGNER POCT-GLUCOSE METER Routine 09/05/2018 12:43 AM ENGINEERED WOOD DESIGNER POCT-GLUCOSE METER Routine 09/05/2018 12:12 AM ENGINEERED WOOD DESIGNER POCT-GLUCOSE METER Routine 09/04/2018 7:26 PM ENGINEERED WOOD [employer]ER CT ABDOMEN/PELVIS WITH IV STAT 09/04/2018 CONTRAST 6:06 PM ENGINEERED WOOD DESIGNER TRANSFUSION SERVICE 09/04/2018 REPORT - SCAN 6:01 PM ENGINEERED WOOD DESIGNER POCT-GLUCOSE METER Routine 09/04/2018 4:42 PM ENGINEERED WOOD DESIGNER POCT-GLUCOSE METER Routine 09/04/2018 12:03 PM ENGINEERED WOOD DESIGNER XR CHEST 1 VIEW Routine 09/04/2018 PORTABLE/BEDSIDE 7:07 AM ENGINEERED WOOD DESIGNER POCT-GLUCOSE METER Routine 09/04/2018 6:03 AM ENGINEERED WOOD DESIGNER CBC W/PLT COUNT & AUTO Routine 09/04/2018 DIFFERENTIAL 5:03 AM ENGINEERED WOOD DESIGNER PHOSPHORUS Routine 09/04/2018 5:03 AM ENGINEERED WOOD DESIGNER MAGNESIUM Routine 09/04/2018 5:03 AM ENGINEERED WOOD DESIGNER BASIC METABOLIC PANEL (7) Routine 09/04/2018 5:03 AM ENGINEERED WOOD DESIGNER PT/APTT Routine 09/04/2018 5:03 AM ENGINEERED WOOD DESIGNER CBC W/PLT COUNT & AUTO Routine 09/04/2018 DIFFERENTIAL 5:03 AM ENGINEERED WOOD DESIGNER POCT-GLUCOSE METER Routine 09/04/2018 12:54 AM ENGINEERED WOOD DESIGNER PREPARE LEUKO-REDUCED RBC Routine 09/03/2018 11:54 PM ENGINEERED WOOD DESIGNER POCT-GLUCOSE METER Routine 09/03/2018 6:30 PM ENGINEERED WOOD DESIGNER TRANSFUSION SERVICE 09/03/2018 REPORT - SCAN 6:00 PM ENGINEERED WOOD DESIGNER POCT-GLUCOSE METER Routine 09/03/2018 12:39 PM ENGINEERED WOOD DESIGNER POCT-GLUCOSE METER Routine 09/03/2018 5:55 AM ENGINEERED WOOD DESIGNER XR CHEST 1 VIEW Routine 09/03/2018 PORTABLE/BEDSIDE 5:27 AM ENGINEERED WOOD DESIGNER CBC W/PLT COUNT & AUTO Routine 09/03/2018 DIFFERENTIAL 4:52 AM ENGINEERED WOOD DESIGNER PHOSPHORUS Routine 09/03/2018 4:52 AM ENGINEERED WOOD DESIGNER MAGNESIUM Routine 09/03/2018 4:52 AM ENGINEERED WOOD DESIGNER BASIC METABOLIC PANEL (7) Routine 09/03/2018 4:52 AM ENGINEERED WOOD DESIGNER PT/APTT Routine 09/03/2018 4:52 AM ENGINEERED WOOD DESIGNER CBC W/PLT COUNT & AUTO Routine 09/03/2018 DIFFERENTIAL 4:52 AM ENGINEERED WOOD DESIGNER BLOOD GAS, ARTERIAL Routine 09/03/2018 4:46 AM ENGINEERED WOOD DESIGNER POCT-GLUCOSE METER Routine 09/02/2018 11:45 PM ENGINEERED WOOD DESIGNER POCT-GLUCOSE METER Routine 09/02/2018 5:55 PM ENGINEERED WOOD DESIGNER CBC W/PLT COUNT & AUTO Routine 09/02/2018 DIFFERENTIAL 12:07 PM ENGINEERED WOOD DESIGNER CBC W/PLT COUNT & AUTO Routine 09/02/2018 DIFFERENTIAL 12:07 PM ENGINEERED WOOD DESIGNER POCT-GLUCOSE METER Routine 09/02/2018 11:44 AM ENGINEERED WOOD DESIGNER TRANSFUSE LEUKO-REDUCED Routine 09/02/2018 RED BLOOD CELLS 10:58 AM ENGINEERED WOOD DESIGNER TYPE AND SCREEN, STAT 09/02/2018 AUTOMATED 6:22 AM ENGINEERED WOOD DESIGNER POCT-GLUCOSE METER Routine 09/02/2018 6:21 AM ENGINEERED WOOD DESIGNER XR CHEST 1 VIEW Routine 09/02/2018 PORTABLE/BEDSIDE 4:30 AM ENGINEERED WOOD DESIGNER CBC W/PLT COUNT & AUTO Routine 09/02/2018 DIFFERENTIAL 2:21 AM ENGINEERED WOOD DESIGNER PHOSPHORUS Routine 09/02/2018 2:21 AM ENGINEERED WOOD DESIGNER MAGNESIUM Routine 09/02/2018 2:21 AM ENGINEERED WOOD DESIGNER BASIC METABOLIC PANEL (7) Routine 09/02/2018 2:21 AM ENGINEERED WOOD DESIGNER PT/APTT Routine 09/02/2018 2:21 AM ENGINEERED WOOD DESIGNER CBC W/PLT COUNT & AUTO Routine 09/02/2018 DIFFERENTIAL 2:21 AM ENGINEERED WOOD DESIGNER POCT-GLUCOSE METER Routine 09/02/2018 12:00 AM ENGINEERED WOOD DESIGNER XR ABDOMEN 1 VIEW STAT 09/01/2018 7:18 PM ENGINEERED WOOD DESIGNER POCT-GLUCOSE METER Routine 09/01/2018 6:13 PM ENGINEERED WOOD DESIGNER POCT-GLUCOSE METER Routine 09/01/2018 11:47 AM ENGINEERED WOOD DESIGNER POCT-GLUCOSE METER Routine 09/01/2018 6:22 AM ENGINEERED WOOD DESIGNER XR CHEST 1 VIEW Routine 09/01/2018 PORTABLE/BEDSIDE 4:06 AM ENGINEERED WOOD DESIGNER CBC W/PLT COUNT & AUTO Routine 09/01/2018 DIFFERENTIAL 4:03 AM ENGINEERED WOOD DESIGNER PHOSPHORUS Routine 09/01/2018 4:03 AM ENGINEERED WOOD DESIGNER MAGNESIUM Routine 09/01/2018 4:03 AM ENGINEERED WOOD DESIGNER BASIC METABOLIC PANEL (7) Routine 09/01/2018 4:03 AM ENGINEERED WOOD DESIGNER PT/APTT Routine 09/01/2018 4:03 AM ENGINEERED WOOD DESIGNER CBC W/PLT COUNT & AUTO Routine 09/01/2018 DIFFERENTIAL 4:03 AM ENGINEERED WOOD DESIGNER POCT-GLUCOSE METER Routine 09/01/2018 12:20 AM ENGINEERED WOOD DESIGNER ECHOCARDIOGRAM REPORT - 08/31/2018 SCAN 9:21 PM ENGINEERED WOOD DESIGNER POCT-GLUCOSE METER Routine 08/31/2018 6:55 PM ENGINEERED WOOD DESIGNER PHOSPHORUS Routine 08/31/2018 1:07 PM ENGINEERED WOOD DESIGNER MAGNESIUM Routine 08/31/2018 1:07 PM ENGINEERED WOOD DESIGNER BASIC METABOLIC PANEL (7) Routine 08/31/2018 1:07 PM ENGINEERED WOOD DESIGNER POCT-GLUCOSE METER Routine 08/31/2018 12:50 PM ENGINEERED WOOD DESIGNER 2D ECHO W/ DOPPLER STAT 08/31/2018 (CW/PW/COLOR) 11:58 AM ENGINEERED WOOD DESIGNER POCT-GLUCOSE METER Routine 08/31/2018 8:28 AM ENGINEERED WOOD DESIGNER POCT-GLUCOSE METER Routine 08/31/2018 6:14 AM ENGINEERED WOOD DESIGNER XR CHEST 1 VIEW Routine 08/31/2018 PORTABLE/BEDSIDE 4:45 AM ENGINEERED WOOD DESIGNER CBC W/PLT COUNT & AUTO Routine 08/31/2018 DIFFERENTIAL 3:40 AM ENGINEERED WOOD DESIGNER PHOSPHORUS Routine 08/31/2018 3:40 AM ENGINEERED WOOD DESIGNER MAGNESIUM Routine 08/31/2018 3:40 AM ENGINEERED WOOD DESIGNER BASIC METABOLIC PANEL (7) Routine 08/31/2018 3:40 AM ENGINEERED WOOD DESIGNER BLOOD GAS, VENOUS Routine 08/31/2018 3:40 AM ENGINEERED WOOD DESIGNER PT/APTT Routine 08/31/2018 3:40 AM ENGINEERED WOOD DESIGNER CBC W/PLT COUNT & AUTO Routine 08/31/2018 DIFFERENTIAL 3:40 AM ENGINEERED WOOD DESIGNER POCT-GLUCOSE METER Routine 08/31/2018 12:18 AM ENGINEERED WOOD DESIGNER TRANSFUSION SERVICE 08/30/2018 REPORT - SCAN 6:01 PM ENGINEERED WOOD DESIGNER POCT-GLUCOSE METER Routine 08/30/2018 5:22 PM ENGINEERED WOOD DESIGNER POCT-GLUCOSE METER Routine 08/30/2018 11:05 AM ENGINEERED WOOD DESIGNER POCT-GLUCOSE METER Routine 08/30/2018 5:38 AM ENGINEERED WOOD DESIGNER XR CHEST 1 VIEW Routine 08/30/2018 PORTABLE/BEDSIDE 4:54 AM ENGINEERED WOOD DESIGNER (CELLAVISION MANUAL DIFF) Routine 08/30/2018 3:52 AM ENGINEERED WOOD DESIGNER CBC W/PLT COUNT & AUTO Routine 08/30/2018 DIFFERENTIAL 3:52 AM ENGINEERED WOOD DESIGNER PHOSPHORUS Routine 08/30/2018 3:52 AM ENGINEERED WOOD DESIGNER MAGNESIUM Routine 08/30/2018 3:52 AM ENGINEERED WOOD DESIGNER BASIC METABOLIC PANEL (7) Routine 08/30/2018 3:52 AM ENGINEERED WOOD DESIGNER BLOOD GAS, VENOUS Routine 08/30/2018 3:52 AM ENGINEERED WOOD DESIGNER PT/APTT Routine 08/30/2018 3:52 AM ENGINEERED WOOD DESIGNER CBC W/PLT COUNT & AUTO Routine 08/30/2018 DIFFERENTIAL 3:52 AM ENGINEERED WOOD DESIGNER POCT-GLUCOSE METER Routine 08/30/2018 12:02 AM ENGINEERED WOOD DESIGNER PHOSPHORUS Routine 08/29/2018 9:04 PM ENGINEERED WOOD DESIGNER MAGNESIUM Routine 08/29/2018 9:04 PM ENGINEERED WOOD DESIGNER BASIC METABOLIC PANEL (7) Routine 08/29/2018 9:04 PM ENGINEERED WOOD DESIGNER POCT-GLUCOSE METER Routine 08/29/2018 5:55 PM ENGINEERED WOOD DESIGNER POCT-GLUCOSE METER Routine 08/29/2018 12:05 PM ENGINEERED WOOD DESIGNER XR CHEST 1 VIEW STAT 08/29/2018 PORTABLE/BEDSIDE 8:36 AM ENGINEERED WOOD DESIGNER POCT-GLUCOSE METER Routine 08/29/2018 6:21 AM ENGINEERED WOOD DESIGNER BLOOD GAS, VENOUS Routine 08/29/2018 4:09 AM ENGINEERED WOOD DESIGNER (CELLAVISION MANUAL DIFF) Routine 08/29/2018 4:08 AM ENGINEERED WOOD DESIGNER CBC W/PLT COUNT & AUTO Routine 08/29/2018 DIFFERENTIAL 4:08 AM ENGINEERED WOOD DESIGNER TYPE AND SCREEN, Routine 08/29/2018 AUTOMATED 4:08 AM ENGINEERED WOOD DESIGNER TRIGLYCERIDES Routine 08/29/2018 4:08 AM ENGINEERED WOOD DESIGNER CALCIUM, IONIZED Routine 08/29/2018 4:08 AM ENGINEERED WOOD DESIGNER PHOSPHORUS Routine 08/29/2018 4:08 AM ENGINEERED WOOD DESIGNER MAGNESIUM Routine 08/29/2018 4:08 AM ENGINEERED WOOD DESIGNER BASIC METABOLIC PANEL (7) Routine 08/29/2018 4:08 AM ENGINEERED WOOD DESIGNER PT/APTT Routine 08/29/2018 4:08 AM ENGINEERED WOOD DESIGNER CBC W/PLT COUNT & AUTO Routine 08/29/2018 DIFFERENTIAL 4:08 AM ENGINEERED WOOD DESIGNER POCT-GLUCOSE METER Routine 08/29/2018 12:21 AM ENGINEERED WOOD DESIGNER POCT-GLUCOSE METER Routine 08/28/2018 7:00 PM ENGINEERED WOOD DESIGNER POCT-GLUCOSE METER Routine 08/28/2018 12:16 PM ENGINEERED WOOD DESIGNER POCT-GLUCOSE METER Routine 08/28/2018 5:44 AM ENGINEERED WOOD DESIGNER (CELLAVISION MANUAL DIFF) Routine 08/28/2018 3:46 AM ENGINEERED WOOD DESIGNER CBC W/PLT COUNT & AUTO Routine 08/28/2018 DIFFERENTIAL 3:46 AM ENGINEERED WOOD DESIGNER BLOOD GAS, ARTERIAL Routine 08/28/2018 3:46 AM ENGINEERED WOOD DESIGNER PHOSPHORUS Routine 08/28/2018 3:46 AM ENGINEERED WOOD DESIGNER MAGNESIUM Routine 08/28/2018 3:46 AM ENGINEERED WOOD DESIGNER BASIC METABOLIC PANEL (7) Routine 08/28/2018 3:46 AM ENGINEERED WOOD DESIGNER PT/APTT Routine 08/28/2018 3:46 AM ENGINEERED WOOD DESIGNER CBC W/PLT COUNT & AUTO Routine 08/28/2018 DIFFERENTIAL 3:46 AM ENGINEERED WOOD DESIGNER XR CHEST 1 VIEW Routine 08/28/2018 PORTABLE/BEDSIDE 3:45 AM ENGINEERED WOOD DESIGNER POCT-GLUCOSE METER Routine 08/28/2018 12:10 AM ENGINEERED WOOD DESIGNER XR ABDOMEN 1 VIEW Routine 08/27/2018 6:47 PM ENGINEERED WOOD DESIGNER POCT-GLUCOSE METER Routine 08/27/2018 5:49 PM ENGINEERED WOOD DESIGNER PHOSPHORUS Routine 08/27/2018 2:32 PM ENGINEERED WOOD DESIGNER BASIC METABOLIC PANEL (7) Routine 08/27/2018 2:32 PM ENGINEERED WOOD DESIGNER POCT-GLUCOSE METER Routine 08/27/2018 11:58 AM ENGINEERED WOOD DESIGNER XR CHEST 1 VIEW Routine 08/27/2018 PORTABLE/BEDSIDE 5:51 AM ENGINEERED WOOD DESIGNER POCT-GLUCOSE METER Routine 08/27/2018 5:36 AM ENGINEERED WOOD DESIGNER (CELLAVISION MANUAL DIFF) Routine 08/27/2018 4:27 AM ENGINEERED WOOD DESIGNER CBC W/PLT COUNT & AUTO Routine 08/27/2018 DIFFERENTIAL 4:27 AM ENGINEERED WOOD DESIGNER BLOOD GAS, ARTERIAL Routine 08/27/2018 4:27 AM ENGINEERED WOOD DESIGNER PHOSPHORUS Routine 08/27/2018 4:27 AM ENGINEERED WOOD DESIGNER MAGNESIUM Routine 08/27/2018 4:27 AM ENGINEERED WOOD DESIGNER BASIC METABOLIC PANEL (7) Routine 08/27/2018 4:27 AM ENGINEERED WOOD DESIGNER PT/APTT Routine 08/27/2018 4:27 AM ENGINEERED WOOD DESIGNER CBC W/PLT COUNT & AUTO Routine 08/27/2018 DIFFERENTIAL 4:27 AM ENGINEERED WOOD DESIGNER POCT-GLUCOSE METER Routine 08/27/2018 12:39 AM ENGINEERED WOOD DESIGNER POCT-GLUCOSE METER Routine 2018 6:23 PM ENGINEERED WOOD DESIGNER POCT-GLUCOSE METER Routine 2018 12:07 PM ENGINEERED WOOD DESIGNER POCT-GLUCOSE METER Routine 2018 6:35 AM ENGINEERED WOOD DESIGNER BLOOD GAS, ARTERIAL Routine 2018 3:14 AM ENGINEERED WOOD DESIGNER CBC W/PLT COUNT & AUTO Routine 2018 DIFFERENTIAL 3:11 AM ENGINEERED WOOD DESIGNER PT/APTT Routine 2018 3:11 AM ENGINEERED WOOD DESIGNER CBC W/PLT COUNT & AUTO Routine 2018 DIFFERENTIAL 3:11 AM ENGINEERED WOOD DESIGNER XR CHEST 1 VIEW Routine 2018 PORTABLE/BEDSIDE 2:50 AM ENGINEERED WOOD DESIGNER POCT-GLUCOSE METER Routine 2018 12:14 AM ENGINEERED WOOD DESIGNER PHOSPHORUS Routine 08/25/2018 11:35 PM ENGINEERED WOOD DESIGNER MAGNESIUM Routine 08/25/2018 11:35 PM ENGINEERED WOOD DESIGNER BASIC METABOLIC PANEL (7) Routine 08/25/2018 11:35 PM ENGINEERED WOOD DESIGNER VANCOMYCIN LEVEL, TROUGH Timed 08/25/2018 9:14 PM ENGINEERED WOOD DESIGNER POCT-GLUCOSE METER Routine 08/25/2018 6:27 PM ENGINEERED WOOD DESIGNER URINALYSIS W/ REFLEX STAT 08/25/2018 URINE CULTURE 1:02 PM ENGINEERED WOOD DESIGNER SPUTUM CULTURE + GRAM STAT 08/25/2018 STAIN 1:02 PM ENGINEERED WOOD DESIGNER BLOOD CULTURE STAT 08/25/2018 1:01 PM ENGINEERED WOOD DESIGNER BLOOD CULTURE STAT 08/25/2018 1:01 PM ENGINEERED WOOD DESIGNER POCT-GLUCOSE METER Routine 08/25/2018 12:56 PM ENGINEERED WOOD DESIGNER BLOOD GAS, ARTERIAL STAT 08/25/2018 10:23 AM ENGINEERED WOOD DESIGNER POCT-GLUCOSE METER Routine 08/25/2018 7:51 AM ENGINEERED WOOD DESIGNER POCT-GLUCOSE METER Routine 08/25/2018 5:35 AM ENGINEERED WOOD DESIGNER CBC W/PLT COUNT & AUTO Routine 08/25/2018 DIFFERENTIAL 3:45 AM ENGINEERED WOOD DESIGNER BLOOD GAS, ARTERIAL Routine 08/25/2018 3:45 AM ENGINEERED WOOD DESIGNER PHOSPHORUS Routine 08/25/2018 3:45 AM ENGINEERED WOOD DESIGNER MAGNESIUM Routine 08/25/2018 3:45 AM ENGINEERED WOOD DESIGNER BASIC METABOLIC PANEL (7) Routine 08/25/2018 3:45 AM ENGINEERED WOOD DESIGNER PT/APTT Routine 08/25/2018 3:45 AM ENGINEERED WOOD DESIGNER CBC W/PLT COUNT & AUTO Routine 08/25/2018 DIFFERENTIAL 3:45 AM ENGINEERED WOOD DESIGNER XR CHEST 1 VIEW Routine 08/25/2018 PORTABLE/BEDSIDE 3:25 AM ENGINEERED WOOD DESIGNER BLOOD GAS, ARTERIAL Routine 08/25/2018 2:07 AM ENGINEERED WOOD DESIGNER POCT-GLUCOSE METER Routine 08/24/2018 11:52 PM ENGINEERED WOOD DESIGNER POCT-GLUCOSE METER Routine 08/24/2018 5:42 PM ENGINEERED WOOD DESIGNER POCT-GLUCOSE METER Routine 08/24/2018 11:44 AM ENGINEERED WOOD DESIGNER VANCOMYCIN LEVEL, TROUGH Timed 08/24/2018 8:13 AM ENGINEERED WOOD DESIGNER POCT-GLUCOSE METER Routine 08/24/2018 6:05 AM ENGINEERED WOOD DESIGNER XR CHEST 1 VIEW Routine 08/24/2018 PORTABLE/BEDSIDE 4:43 AM ENGINEERED WOOD DESIGNER BLOOD GAS, ARTERIAL Routine 08/24/2018 4:10 AM ENGINEERED WOOD DESIGNER (CELLAVISION MANUAL DIFF) Routine 08/24/2018 4:04 AM ENGINEERED WOOD DESIGNER CBC W/PLT COUNT & AUTO Routine 08/24/2018 DIFFERENTIAL 4:04 AM ENGINEERED WOOD DESIGNER PHOSPHORUS Routine 08/24/2018 4:04 AM ENGINEERED WOOD DESIGNER MAGNESIUM Routine 08/24/2018 4:04 AM ENGINEERED WOOD DESIGNER BASIC METABOLIC PANEL (7) Routine 08/24/2018 4:04 AM ENGINEERED WOOD DESIGNER PT/APTT Routine 08/24/2018 4:04 AM ENGINEERED WOOD DESIGNER CBC W/PLT COUNT & AUTO Routine 08/24/2018 DIFFERENTIAL 4:04 AM ENGINEERED WOOD DESIGNER POCT-GLUCOSE METER Routine 08/24/2018 12:08 AM ENGINEERED WOOD DESIGNER TRANSFUSION SERVICE 08/23/2018 REPORT - SCAN 6:01 PM ENGINEERED WOOD DESIGNER POCT-GLUCOSE METER Routine 08/23/2018 6:01 PM ENGINEERED WOOD DESIGNER BLOOD GAS, ARTERIAL Routine 08/23/2018 5:15 PM ENGINEERED WOOD DESIGNER PHOSPHORUS Routine 08/23/2018 1:14 PM ENGINEERED WOOD DESIGNER MAGNESIUM Routine 08/23/2018 1:14 PM ENGINEERED WOOD DESIGNER BASIC METABOLIC PANEL (7) Routine 08/23/2018 1:14 PM ENGINEERED WOOD DESIGNER POCT-GLUCOSE METER Routine 08/23/2018 12:06 PM ENGINEERED WOOD DESIGNER XR CHEST 1 VIEW Routine 08/23/2018 PORTABLE/BEDSIDE 6:53 AM ENGINEERED WOOD DESIGNER POCT-GLUCOSE METER Routine 08/23/2018 6:32 AM ENGINEERED WOOD DESIGNER CBC W/PLT COUNT & AUTO Routine 08/23/2018 DIFFERENTIAL 3:26 AM ENGINEERED WOOD DESIGNER BLOOD GAS, ARTERIAL Routine 08/23/2018 3:26 AM ENGINEERED WOOD DESIGNER PHOSPHORUS Routine 08/23/2018 3:26 AM ENGINEERED WOOD DESIGNER MAGNESIUM Routine 08/23/2018 3:26 AM ENGINEERED WOOD DESIGNER BASIC METABOLIC PANEL (7) Routine 08/23/2018 3:26 AM ENGINEERED WOOD DESIGNER PT/APTT Routine 08/23/2018 3:26 AM ENGINEERED WOOD DESIGNER CBC W/PLT COUNT & AUTO Routine 08/23/2018 DIFFERENTIAL 3:26 AM ENGINEERED WOOD DESIGNER POCT-GLUCOSE METER Routine 08/23/2018 1:54 AM ENGINEERED WOOD DESIGNER POCT-GLUCOSE METER Routine 08/23/2018 12:34 AM ENGINEERED WOOD DESIGNER BLOOD GAS, ARTERIAL Routine 08/23/2018 12:19 AM ENGINEERED WOOD DESIGNER BLOOD GAS, ARTERIAL Routine 08/22/2018 8:16 PM ENGINEERED WOOD DESIGNER PHOSPHORUS Routine 08/22/2018 8:16 PM ENGINEERED WOOD DESIGNER MAGNESIUM Routine 08/22/2018 8:16 PM ENGINEERED WOOD DESIGNER CBC (HEMOGRAM ONLY) Routine 08/22/2018 8:16 PM ENGINEERED WOOD DESIGNER BASIC METABOLIC PANEL (7) Routine 08/22/2018 8:16 PM ENGINEERED WOOD DESIGNER POCT-GLUCOSE METER Routine 08/22/2018 6:55 PM ENGINEERED WOOD DESIGNER PREPARE LEUKO-REDUCED RBC STAT 08/22/2018 5:18 PM ENGINEERED WOOD DESIGNER SURGICALLY OBTAINED Routine 08/22/2018 CULTURE + GRAM STAIN 5:11 PM ENGINEERED WOOD DESIGNER ANAEROBIC CULTURE Routine 08/22/2018 5:11 PM ENGINEERED WOOD DESIGNER HGB/HCT (H&H) - STAT LAB STAT 08/22/2018 5:05 PM ENGINEERED WOOD DESIGNER GLUCOSE-STAT LAB STAT 08/22/2018 5:05 PM ENGINEERED WOOD DESIGNER POTASSIUM-STAT LAB STAT 08/22/2018 5:05 PM ENGINEERED WOOD DESIGNER SODIUM NA-STAT LAB STAT 08/22/2018 5:05 PM ENGINEERED WOOD DESIGNER BLOOD GAS, ARTERIAL STAT 08/22/2018 5:05 PM ENGINEERED WOOD DESIGNER CALCIUM, IONIZED STAT 08/22/2018 5:05 PM ENGINEERED WOOD DESIGNER RRL CRITICAL LABS STAT 08/22/2018 (ABG,NA,K,H&H,GLUCOSE) 5:05 PM ENGINEERED WOOD DESIGNER ABORH, MANUAL STAT 08/22/2018 4:15 PM ENGINEERED WOOD DESIGNER TYPE AND SCREEN, STAT 08/22/2018 AUTOMATED 4:03 PM ENGINEERED WOOD DESIGNER CT ABDOMEN/PELVIS WITH IV STAT 08/22/2018 CONTRAST 3:03 PM ENGINEERED WOOD DESIGNER CREATION,ILEOSTOMY 08/22/2018 Bowel and bladder 2:25 PM ENGINEERED WOOD DESIGNER incontinence Special Needs REQ 1400 LAPAROTOMY,EXPLORATORY 08/22/2018 Bowel and bladder 2:25 PM ENGINEERED WOOD DESIGNER incontinence Special Needs REQ 1400 (CELLAVISION MANUAL DIFF) Routine 08/22/2018 1:55 PM ENGINEERED WOOD DESIGNER CBC W/PLT COUNT & AUTO Routine 08/22/2018 DIFFERENTIAL 1:55 PM ENGINEERED WOOD DESIGNER PHOSPHORUS Routine 08/22/2018 1:55 PM ENGINEERED WOOD DESIGNER MAGNESIUM Routine 08/22/2018 1:55 PM ENGINEERED WOOD DESIGNER BASIC METABOLIC PANEL (7) Routine 08/22/2018 1:55 PM ENGINEERED WOOD DESIGNER CBC W/PLT COUNT & AUTO Routine 08/22/2018 DIFFERENTIAL 1:55 PM ENGINEERED WOOD DESIGNER POCT-GLUCOSE METER Routine 08/22/2018 1:53 PM ENGINEERED WOOD DESIGNER BLOOD GAS, ARTERIAL STAT 08/22/2018 1:50 PM ENGINEERED WOOD DESIGNER POCT-GLUCOSE METER Routine 08/22/2018 12:56 PM ENGINEERED WOOD DESIGNER URINALYSIS W/ REFLEX STAT 08/22/2018 URINE CULTURE 11:21 AM ENGINEERED WOOD DESIGNER POCT-GLUCOSE METER Routine 08/22/2018 10:46 AM ENGINEERED WOOD DESIGNER XR CHEST 1 VIEW STAT 08/22/2018 PORTABLE/BEDSIDE 9:25 AM ENGINEERED WOOD DESIGNER XR ABDOMEN 1 VIEW STAT 08/22/2018 9:25 AM ENGINEERED WOOD DESIGNER BLOOD GAS, ARTERIAL STAT 08/22/2018 8:22 AM ENGINEERED WOOD DESIGNER XR CHEST 1 VIEW STAT 08/22/2018 PORTABLE/BEDSIDE 3:44 AM ENGINEERED WOOD DESIGNER ECG 12-LEAD Routine 08/22/2018 3:31 AM ENGINEERED WOOD DESIGNER ECG 12-LEAD Routine 08/22/2018 3:31 AM ENGINEERED WOOD DESIGNER Procedure Note - Interface, External Ris In - 08/22/2018 6:23 PM ENGINEERED WOOD DESIGNER Ventricula r Rate 108 BPM Atrial Rate 108 BPM P-R Interval 146 ms QRS Duration 104 ms Q-T Interval 344 ms QTC Calculatio n(Bazett) 460 ms P [place] 62 degrees R [place] 62 degrees T [place] 25 degrees Sinus tachycardi a Possible Inferior infarct , age undetermin ed Abnormal ECG No previous ECGs available BLOOD GAS, ARTERIAL Routine 08/22/2018 3:19 AM ENGINEERED WOOD DESIGNER BLOOD CULTURE Routine 08/22/2018 3:06 AM ENGINEERED WOOD DESIGNER LACTIC ACID, VENOUS Routine 08/22/2018 3:04 AM ENGINEERED WOOD DESIGNER CBC W/PLT COUNT & AUTO Routine 08/22/2018 DIFFERENTIAL 2:48 AM ENGINEERED WOOD DESIGNER PHOSPHORUS Routine 08/22/2018 2:48 AM ENGINEERED WOOD DESIGNER MAGNESIUM STAT 08/22/2018 2:48 AM ENGINEERED WOOD DESIGNER COMPREHENSIVE METABOLIC Routine 08/22/2018 PANEL 2:48 AM ENGINEERED WOOD DESIGNER PT/APTT Routine 08/22/2018 2:48 AM ENGINEERED WOOD DESIGNER CBC W/PLT COUNT & AUTO Routine 08/22/2018 DIFFERENTIAL 2:48 AM ENGINEERED WOOD DESIGNER BLOOD CULTURE Routine 08/22/2018 2:47 AM ENGINEERED WOOD DESIGNER after 12/14/2017 Results * RHYTHM STRIP - SCAN (10/12/2018 7:30 PM CDT) Only the most recent of 2 results within the time period is included. Narrative Performed At * POC-Glucose meter (09/26/2018 12:02 PM CDT) Only the most recent of 151 results within the time period is included. POC-Glucose Meter 128 (H)Comment: TESTED AT 70 - 110 mg/dL [facility] [address] [address] Specimen Blood Performing Organization Address City/State/Zipcode Phone Number [address] [address] [facility] * XR chest 1 view portable/bedside (09/26/2018 7:34 AM CDT) Only the most recent of 37 results within the time period is included. Specimen Narrative Performed At FINAL REPORT [facility] Chest one view. Clinical history: evaluation of pulmonary edema Comparison: 09/25/2018 Discussion: A frontal chest is provided. The cardiac and mediastinal contours are unremarkable allowing for portable technique. There is no pneumothorax, javed pulmonary edema, consolidation or significant pleural effusion. The bony structures are unremarkable. Signed: Josefa Dickey MD Report Verified Date/Time:09/26/2018 08:13:08 Reading Location: [facility] Radiology Reading Room Procedure Note Interface, [...] Report Verified Date/Time: 09/26/2018 08:13:08 Reading [facility] Reading Room Performing Organization Address City/State/Zipcode Phone Number [facility] * PT/aPTT (09/26/2018 5:32 AM CDT) Only the most recent of 36 results within the time period is included. Protime 14.8 (H) 11.7 - 14.[address] [facility] INR 1.2 <=[address]9 [facility] PTT 49.5 (H) 22.5 - 36.[address] [facility] Specimen Blood Narrative Performed At RECOMMENDED COUMADIN/WARFARIN INR THERAPY RANGES [facility] STANDARD DOSE: 2.0 - 3.0 Includes: PROPHYLAXIS for venous thrombosis, [facility] systemic embolization; TREATMENT for venous thrombosis and/or pulmonary embolus. HIGH RISK: Target INR is 2.5-3.5 for patients with mechanical heart valves. Performing Organization Address City/[facility]/[place] Phone Number [place] [phone] [place] [address] MEDICAL [facility]ENTER * CBC with platelet count + automated diff (09/26/2018 5:32 AM CDT) Only the most recent of 40 results within the time period is included. WBC 13.7 (H) 3.5 - 10.5 K/L [facility] RBC 4.50 3.93 - 5.22 M/L [facility] Hemoglobin 10.6 (L) 11.2 - 15.7 GM/DL [facility] Hematocrit 35.2 34.1 - 44.9 % [facility] MCV 78.2 (L) 79.4 - 94.[address] [facility] MCH 23.6 (L) 25.6 - 32.[address] [facility] MCHC 30.1 (L) 32.2 - 35.5 GM/DL [facility] RDW 20.1 (H) 11.7 - 14.4 % [facility] Platelets 531 (H) 150 - 450 K/CU MM [facility] MPV 9.5 9.4 - 12.[address] [facility] nRBC 0 0 - 0 /[address] [facility] % Neutros 72 % [facility] % Lymphs 17 % [facility] % Monos 7 % [facility] % Eos 2 % [facility] % Baso 1 % [facility] # Neutros 9.91 (H) 1.56 - 6.13 K/L [facility] # Lymphs 2.35 1.18 - 3.74 K/L [facility] # Monos 0.99 (H) 0.24 - 0.36 K/L [facility] # Eos 0.25 0.04 - 0.36 K/L [facility] # Baso 0.07 0.01 - 0.08 K/L [facility] Immature 1 0 - 1 % [facility] Granulocytes-[facility] Specimen Blood Performing Organization Address City/State/Zipcode Phone Number [facility] [address] [place] [address] MEDICAL CENTER * Phosphorus (09/26/2018 5:32 AM CDT) Only the most recent of 42 results within the time period is included. Phosphorus 2.6 2.3 - 4.7 mg/dL [facility] Specimen Blood Performing Organization Address City/State/Zipcode Phone Number [facility] [address] [place], [place] [id number] [facility] * Magnesium (09/26/2018 5:32 AM CDT) Only the most recent of 41 results within the time period is included. Magnesium 1.7 1.6 - 2.6 mg/dL [facility] Specimen Blood Performing Organization Address City/[facility]/Zipcode Phone Number [address] [address] [facility] * Basic Metabolic Panel (09/26/2018 5:32 AM CDT) Only the most recent of 44 results within the time period is included. Sodium 133 (L) 136 - 145 meq/L [facility] Potassium 3.5 3.5 - 5.1 meq/L [facility] Chloride 95 (L) 98 - 107 meq/L [facility] CO2 26 22 - 29 meq/L [facility] BUN 14 7 - 21 mg/dL [facility] Creatinine 0.70 0.57 - 1.25 mg/dL [facility] Glucose 89 70 - 105 mg/dL [facility] Calcium 12.1 (H) 8.4 - 10.2 mg/dL [facility] EGFR 86Comment: ESTIMATED GFR IS mL/min/1.73 sq m [facility] NOT ACCURATE CREATININE [facility] CLEARANCE IN PREDICTING GLOMERULAR FILTRATION RATE. ESTIMATED GFR IS NOT APPLICABLE FOR DIALYSIS PATIENTS. Specimen Blood Performing Organization Address City/[facility]/Zipcode Phone Number [address] [address] [facility] * Urinalysis w/Microscopic + Reflex to Culture (09/23/2018 11:48 AM CDT) Only the most recent of 3 results within the time period is included. Color, UA Yellow [facility] Clarity, UA Hazy [facility] Specific [place], UA 1.014 1.001 - 1.035 [facility] pH, UA 6.0 5.0 - 8.0 [facility] Protein, UA 70 mg/dL (A) Negative [facility] Glucose, UA Negative Negative [facility] Ketones, UA Negative Negative [facility] Bilirubin, UA Negative Negative [facility] Blood, UA Large (A) Negative [facility] Nitrite, UA Negative Negative [facility] Leukocytes, UA Large (A) Negative [facility] Urobilinogen, UA 0.2 0.2 - 1.0 mg/dL [facility] RBC, UA 251 /HPF [facility] WBC, UA 87 /HPF [facility] Bacteria, UA Rare [facility] Squam Epithel, UA <1 /HPF [facility] Specimen Source [facility] Specimen Urine Performing Organization Address City/State/Zipcode Phone Number [facility] [address] [place] [address] [facility] * Urine culture (09/23/2018 11:48 AM CDT) Only the most recent of 2 results within the time period is included. Result No growth [facility] Specimen Urine Performing Organization Address City/State/Zipcode Phone Number [facility] [address] [place] [address] [facility] * [place] Cosmetician Apprentice in [place] 30 minute increments (09/18/2018 9:15 [...] MD Report Verified Date/Time:09/18/2018 12:06:53 Reading Location: [address] Ultrasound Reading Room Procedure Note Interface, [...] Report Verified Date/Time: 09/18/2018 12:06:53 Reading Location: [facility] [id number] Ultrasound Reading Room Performing Organization Address City/State/Zipcode Phone Number [facility] * Comprehensive metabolic panel (09/16/2018 4:03 AM ENGINEERED WOOD DESIGNER) Only the most recent of 2 results within the time period is included. Protein, Total 6.3 6.0 - 8.3 gm/dL [facility] Albumin 3.0 (L) 3.5 - 5.0 g/dL [facility] Alkaline Phosphatase 64 40 - 150 U/L [facility] Total Bilirubin 0.2 0.2 - 1.2 mg/dL [facility] Sodium 135 (L) 136 - 145 meq/L [facility] Potassium 4.0 3.5 - 5.1 meq/L [facility] Chloride 98 98 - 107 meq/L [facility] CO2 28 22 - 29 meq/L [facility] BUN 22 (H) 7 - 21 mg/dL [facility] Creatinine 1.60 (H) 0.57 - 1.25 mg/dL [facility] Glucose 99 70 - 105 mg/dL [facility] Calcium 10.1 8.4 - 10.2 mg/dL [facility] AST 12 5 - 34 U/L [facility] ALT <6 (L) 6 - 55 U/L [facility] EGFR 33Comment: ESTIMATED GFR IS mL/min/1.73 sq m [facility] NOT ACCURATE CREATININE [facility] CLEARANCE IN PREDICTING GLOMERULAR FILTRATION RATE. ESTIMATED GFR IS NOT APPLICABLE FOR DIALYSIS PATIENTS. Specimen Blood Performing Organization Address City/State/Zipcode Phone Number [facility] [address] [place] [address] [facility] CENTER * CT drainage abdominal (09/15/2018 4:54 PM ENGINEERED WOOD DESIGNER) Specimen Narrative Performed At FINAL REPORT [employer] PROCEDURE: Pelvic abscess drainage. Dose modulation, iterative [...] Successful placement of a right pelvic 8 Micronesian drainage catheter with aspiration of 30 mL of purulent fluid. Signed: Kaleb Carrion MD Report Verified Date/Time:09/15/2018 20:12:36 Reading Location: [facility] B1 C013Y CT Body Reading Room Procedure Note Interface, External Ris In - 09/15/2018 8:14 PM ENGINEERED WOOD DESIGNER FINAL REPORT PROCEDURE: Pelvic abscess drainage. Dose [...] Successful placement of a right pelvic 8 Micronesian drainage catheter with aspiration of 30 mL of purulent fluid. Signed: Kaleb Carrion MD Report Verified Date/Time: 09/15/2018 20:12:36 Reading Location: [facility] B1 C013Y CT Body Reading Room Performing Organization Address City/State/Zipcode Phone Number [facility] * Body fluid culture + gram stain (09/15/2018 4:44 PM ENGINEERED WOOD DESIGNER) Result ENTEROBACTER CLOACAE COMPLEX [facility] (A) [facility] Result ESCHERICHIA COLI (A) [facility] Gram Stain Result 2+ WBCs [facility] Gram Stain Result <1+ gram positive rods [facility] Specimen Body Fluid Antibiotic Method Susceptibility Organism [...] coli Performing Organization Address City/State/Zipcode Phone Number [facility] [address] [place] [address] [facility] * CT abdomen/pelvis without iv contrast (09/15/2018 12:34 PM ENGINEERED WOOD DESIGNER) Specimen Narrative Performed At FINAL REPORT [facility] TECHNIQUE: CT of the abdomen and [...] MD Report Verified Date/Time:09/15/2018 13:36:13 Reading Location: [facility] C013Y CT Body Reading Room Procedure Note Interface, External Ris In - 09/15/2018 1:38 PM ENGINEERED WOOD DESIGNER FINAL REPORT TECHNIQUE: CT of the abdomen [...] Report Verified Date/Time: 09/15/2018 13:36:13 Reading Location: [facility] B1 C013Y CT Body Reading Room Performing Organization Address City/[facility]/Zipcode Phone Number [facility] * Urea Nitrogen, random urine (09/15/2018 8:59 AM ENGINEERED WOOD DESIGNER) Urea Nitrogen, Ur 122 mg/dL [facility] Specimen Urine Narrative Performed At Reference Range: No Normals [facility] Performing Organization Address City/[facility]/Zipcode Phone Number [facility] [address] [place] [address] MEDICAL CENTER * Sodium, random urine (09/15/2018 8:59 AM ENGINEERED WOOD DESIGNER) Sodium Urine 114 meq/L [facility] Specimen Urine Narrative Performed At Reference Range: No Normals [facility] Performing Organization Address City/[facility]/[place] Phone Number [facility] [address] [place] [phone] [facility] * Creatinine, random urine (09/15/2018 8:59 AM ENGINEERED WOOD DESIGNER) Creatinine, Ur 18.3 mg/dL [facility] Specimen Urine Narrative Performed At Reference Range: No Normals [facility] Performing Organization Address City/[facility]/[place] Phone Number [facility] [address] [place] [address] [facility] * Urinalysis w/Microscopic (09/15/2018 8:59 AM ENGINEERED WOOD DESIGNER) Color, UA Yellow [facility] Clarity, UA Clear [facility] Specific [place], UA 1.007 1.001 - 1.035 [facility] pH, UA 7.5 5.0 - 8.0 [facility] Protein, UA 20 mg/dL (A) Negative [facility] Glucose, UA Negative Negative [facility] Ketones, UA Negative Negative [facility] Bilirubin, UA Negative Negative [facility] Blood, UA Moderate (A) Negative [facility] Nitrite, UA Negative Negative [facility] Leukocytes, UA Moderate (A) Negative [facility] Urobilinogen, UA 0.2 0.2 - 1.0 mg/dL [facility] RBC, UA 12 /HPF [facility] WBC, UA 11 /HPF [facility] Bacteria, UA Rare [facility] Crystals, Urine Rare [facility] Specimen Source Urine, Voided [facility] Specimen Urine Performing Organization Address [facility]/Zipcode Phone Number [facility] [address] [place] [address] [facility] * Prealbumin (09/14/2018 3:04 PM ENGINEERED WOOD DESIGNER) Prealbumin 15Comment: Specimen slightly 14 - 45 mg/dL [facility] hemolyzed [facility] Specimen Blood Performing Organization Address [facility]/Zipcode Phone Number [facility] [address] [place] [address] [facility] * Hemoglobin A1c (09/13/2018 5:29 AM ENGINEERED WOOD DESIGNER) Hemoglobin A1C 6.1 4.3 - 6.1 % [facility] Specimen Blood Performing Organization Address [facility]/[place] Phone Number [facility] [address] [place] [address] * CT abdomen/pelvis with IV contrast (09/11/2018 10:32 AM ENGINEERED WOOD DESIGNER) Only the most recent of 3 results within the time period is included. Specimen Narrative Performed At FINAL REPORT [facility] CT abdomen and pelvis with contrast [...] MD Report Verified Date/Time:09/11/2018 10:48:56 Reading Location: [facility] Diagnostic Imaging Reading Room - [place] [id number] Procedure Note Interface, External Ris In - 09/11/2018 10:51 AM ENGINEERED WOOD DESIGNER FINAL REPORT CT abdomen and pelvis with [...] Report Verified Date/Time: 09/11/2018 10:48:56 Reading Location: [facility] Diagnostic Imaging Reading Room - [place] [address] Performing Organization Address City/State/Zipcode Phone Number GE RIS * TRANSFUSION SERVICE REPORT - SCAN (09/04/2018 6:01 PM ENGINEERED WOOD DESIGNER) Only the most recent of 4 results within the time period is included. Narrative Performed At * Prepare Leuko-Red RBC (09/03/2018 11:54 PM ENGINEERED WOOD DESIGNER) Only the most recent of 2 results within the time period is included. CROSSMATCH COMPATIBLE SAFETRACE TX Unit ABO A Pos [place]ACE [place] UNIT NUMBER [id number] SAFETRACE [place] Status TX_TIMEINCHART SAFETRACE [place] Blood Bank Product RED BLOOD CELLS [place]ACE [place] PRODUCT CODE [id number] [place] Specimen Other Performing Organization Address [facility] Phone Number [place]ACE [place] * Blood gas, arterial (09/03/2018 4:46 AM ENGINEERED WOOD DESIGNER) Only the most recent of 16 results within the time period is included. pH, Arterial 7.52 (H) 7.35 - 7.45 [facility] pCO2, Arterial 43 35 - [address] [facility] pO2, Arterial 93 (H) 80 - [address] [facility] O2 Sat, Arterial 97.6 (H) 96.0 - 97.0 % [facility] HCO3, Arterial 34 (H) 21 - 29 mmol/L [facility] Base Excess, Arterial 10.5 (H) -2.0 - 3.0 mmol/L [facility] Patient Temperature 37.[address] [facility] FIO2 55.0 % [facility] Specimen Blood, Arterial Performing Organization Address City/[facility]/Zipcode Phone Number [facility] [address] [place] [address] [phone] * Transfuse Leuko-Red RBC (09/02/2018 10:58 AM ENGINEERED WOOD DESIGNER) Only the most recent of 2 results within the time period is included. * Type and screen, automated (09/02/2018 6:22 AM ENGINEERED WOOD DESIGNER) Only the most recent of 3 results within the time period is included. ABO/RH AUTOMATED (BEAKER) A POSITIVE [facility] Ab Scrn NEGATIVE [facility] Specimen Blood Performing Organization Address City/State/Zipcode Phone Number [address] [address] [phone] [address] * XR abdomen / KUB 1 view (09/01/2018 7:18 PM ENGINEERED WOOD DESIGNER) Only the most recent of 3 results within the time period is included. Specimen Narrative Performed At FINAL REPORT [facility] TECHNIQUE: Single View of the Abdomen. [...] MD Report Verified Date/Time:09/01/2018 20:11:49 Reading Location: [address] Consult Reading Room Procedure Note Interface, External Ris In - 09/01/2018 8:13 PM ENGINEERED WOOD DESIGNER FINAL REPORT TECHNIQUE: Single View of the [...] Report Verified Date/Time: 09/01/2018 20:11:49 Reading Location: [facility] [id number] Consult Reading Room Performing Organization Address City/State/Zipcode Phone Number GE RIS * ECHOCARDIOGRAM REPORT - SCAN (08/31/2018 9:21 PM ENGINEERED WOOD DESIGNER) Narrative Performed At * 2D Echo W/Doppler(CW/PW/Color) (08/31/2018 11:58 AM ENGINEERED WOOD DESIGNER) Ejection Fraction [facility]ART[facility] Specimen Narrative Performed At Transthoracic Echocardiography Report (TTE) [facility]ART[facility] Demographics [facility] Patient Name CHARITY,Date of Study 08/31/2018 LEONARDA [id number] Female Visit Number [id number] Room Number 6A11 Number Date of Birth1960Referring Physician Julieth Martinez Age58 year(s)Digital Associate Media Director Ladonna Rahman, CS AnalystAlex Marti Cm Physician [...] External Ris In - 08/31/2018 2:52 PM ENGINEERED WOOD DESIGNER Transthoracic Echocardiography Report (TTE) Demographics Patient Name CHARITY, Date of Study 08/31/2018 LEONARDA Gender Female Visit Number [id number] Race Room Number 6A11 Number Date of 1960 Referring Physician Julieth Martinez Age 58 year(s) Digital Associate Media Director Ladonna Rahman, [facility] Gastroenterology Technician Bob Kidd Interpreting Physician ODILIA Ryan Procedure [...] LVOT CI: 4.54 l/min/m^2 Performing Organization Address City/State/[place] Phone Number [facility] * Blood gas, venous (08/31/2018 3:40 AM ENGINEERED WOOD DESIGNER) Only the most recent of 3 results within the time period is included. pH, Merlin 7.49 (H) 7.32 - 7.42 [facility] pCO2, Merlin 53 (H) 41 - [address] [facility] pO2, Merlin 39 25 - [address] [facility] O2 Sat, Merlin 77.9 (H) 40.0 - 70.0 % [facility] HCO3, Merlin 39 (H) 21 - 29 mmol/L [facility] Base Excess, Merlin 13.9 (H) -2.0 - 3.0 mmol/L [facility] Patient Temperature 36.[address] [facility] FIO2 100.0 % [facility] Specimen Blood Performing Organization Address City/State/Zipcode Phone Number [facility] [address] [place] [address] MEDICAL CENTER * Manual Differential (08/30/2018 3:52 AM ENGINEERED WOOD DESIGNER) Only the most recent of 6 results within the time period is included. % Neutros 86 % [facility] % Lymphs 4 % [facility] % Monos 5 % [facility] % Eos 3 % [facility] % Bands 2 0 - 10 % [facility] # Neutros 20.47 (H) 1.56 - 6.13 K/ul [facility] # Lymphs 0.95 (L) 1.18 - 3.74 K/ul [facility] # Monos 1.19 (H) 0.24 - 0.36 K/uL [facility] # Eos 0.71 (H) 0.04 - 0.36 K/uL [facility] # Bands 0.48 0.00 - 0.80 K/uL [facility] Total Counted 100 [facility] nRBC (manual) 1 (H) 0 - 0 /[address] [facility] WBC Morphology Normal [facility] Platelet Morphology Normal [facility] Hypochromia 1+ few [facility] Anisocytosis 2+ moderate [facility] Microcytes 2+ moderate [facility] Artifact Present [facility] Platelet Conc Increased [facility] Specimen Blood Narrative Performed At Received comment: [facility] User comments: [facility] Slide comments: Performing Organization Address City/[facility]/[place] Phone Number [place] [phone] [place] [address] * Calcium, Ionized (08/29/2018 4:08 AM ENGINEERED WOOD DESIGNER) Only the most recent of 2 results within the time period is included. Calcium, Ion 1.32 (H) 1.12 - 1.27 mmol/L [facility] pH, Blood 7.42 [facility] Specimen Blood Performing Organization Address [facility]/[place] Phone Number [place] [phone] [place] [address] * Triglycerides (08/29/2018 4:08 AM ENGINEERED WOOD DESIGNER) Triglycerides 98 mg/dL [facility] Specimen Blood Narrative Performed At TRIGLYCERIDE REFERENCE RANGE [facility] Low Risk<150 [facility] Borderline Risk 150-199 High [id number] Very High Risk >=500 Performing Organization Address City/[facility] Phone Number [address] [address] [phone] [place] [address] * Vancomycin level, trough (08/25/2018 9:14 PM ENGINEERED WOOD DESIGNER) Only the most recent of 2 results within the time period is included. Vancomycin Tr 16.9 10.0 - 20.0 ug/mL [facility] Specimen Blood Performing Organization Address City/[facility]/[place] Phone Number [place] [phone] [place] [address] [facility] * Sputum Culture + Gram Stain (08/25/2018 1:02 PM ENGINEERED WOOD DESIGNER) Result See comment [facility] Gram Stain Result 2+ White blood cells seen [facility] Gram Stain Result 0-[address] [facility] Gram Stain Result 2+ yeast [facility] Specimen Sputum Narrative Performed At 4+ yeast [facility] Performing Organization Address City/[facility]/Zipcode Phone Number [address] [address] [facility] * Blood culture (08/25/2018 1:01 PM ENGINEERED WOOD DESIGNER) Only the most recent of 4 results within the time period is included. Result No growth in [address] [facility] Specimen Blood Performing Organization Address City/[facility]/[place] Phone Number [address] [address] [facility] * CBC (Hemogram only) (08/22/2018 8:16 PM ENGINEERED WOOD DESIGNER) WBC 11.3 (H) 3.5 - 10.5 K/L [facility] RBC 3.98 3.93 - 5.22 M/L [facility] Hemoglobin 9.6 (L) 11.2 - 15.7 GM/DL [facility] Hematocrit 32.2 (L) 34.1 - 44.9 % [facility] MCV 80.9 79.4 - 94.[address] [facility] MCH 24.1 (L) 25.6 - 32.[address] [facility] MCHC 29.8 (L) 32.2 - 35.5 GM/DL [facility] RDW 16.7 (H) 11.7 - 14.4 % [facility] Platelets 525 (H) 150 - 450 K/CU MM [facility] MPV 10.1 9.4 - 12.[address] [facility] nRBC 0 0 - 0 /[address] [facility] Specimen Blood Performing Organization Address City/State/Zipcode Phone Number [facility] [address] [place] [address] [facility] * Anaerobic culture (08/22/2018 5:11 PM ENGINEERED WOOD DESIGNER) Result BACTEROIDES THETAIOTAOMICRON [facility] ([facility] Result ANAEROBIC GRAM-POSITIVE [facility] BACILLUS (A)Comment: No [facility] further workup performed Specimen Other Performing Organization Address City/State/Zipcode Phone Number [facility] [address] [place] [address] [facility] * Surgically obtained culture + gram stain (08/22/2018 5:11 PM ENGINEERED WOOD DESIGNER) Result ENTEROBACTER CLOACAE COMPLEX [facility] () [facility] Result ESCHERICHIA COLI (A) [facility] Result HELIO ALBICANS (A) [facility] Gram Stain Result 3+ WBCs [facility] Gram Stain Result 1+ gram positive rods [facility] Gram Stain Result <1+ budding yeast [facility] Specimen Tissue Antibiotic Method Susceptibility Organism Amikacin [...] <=20: Susceptible Escherichia coli Performing Organization Address [facility]/[place] Phone Number [address] * Potassium-Stat Lab (08/22/2018 5:05 PM ENGINEERED WOOD DESIGNER) Potassium 4.3 3.6 - 5.5 meq/L [facility] Specimen Blood, Arterial Performing Organization Address [facility] Phone Number [address] * Sodium Na-Stat Lab (08/22/2018 5:05 PM ENGINEERED WOOD DESIGNER) Sodium 134 (L) 135 - 148 meq/L [facility] Specimen Blood, Arterial Performing Organization Address [facility] Phone Number [address] * Glucose-Stat Lab (08/22/2018 5:05 PM ENGINEERED WOOD DESIGNER) Glucose 159 (H) 70 - 110 mg/dL [facility] Specimen Blood, Arterial Performing Organization Address [facility] Phone Number [address] * HGB/HCT (H&H)-Stat Lab (08/22/2018 5:05 PM ENGINEERED WOOD DESIGNER) Hemoglobin 9.2 (L) 12.0 - 15.0 g/dL [facility] Hematocrit 27.0 (L) 36.0 - 45.0 % [facility] Specimen Blood, Arterial Performing Organization Address [facility]/[place] Phone Number [facility] [address] [place] [phone] [place] [address] * ABORH, manual (08/22/2018 4:15 PM ENGINEERED WOOD DESIGNER) ABO Grouping A [facility] Rh Factor POS [facility] Specimen Blood Performing Organization Address [facility]/[place] Phone Number [address] * ECG 12 lead (08/22/2018 3:31 AM ENGINEERED WOOD DESIGNER) Specimen Narrative Performed At Ventricular Rate 108 BPM GE M[facility] Atrial Rate 108 BPM P-R Interval 146 ms QRS Duration 104 ms Q-T Interval 344 ms QTC Calculation(Bazett) 460 ms P [place] 62 degrees R [place] 62 degrees T [place] 25 degrees Sinus tachycardia Borderline criteria for Possible Inferior infarct , age undetermined Prolonged QT Abnormal ECG No previous ECGs available Confirmed by Ramon RICARDO BASANT ([id number]) on 08/23/2018 12:43:57 PM Procedure Note Interface, External Ris In - 08/23/2018 12:44 PM ENGINEERED WOOD DESIGNER Ventricular Rate 108 BPM Atrial Rate 108 BPM P-R Interval 146 ms QRS Duration 104 ms Q-T Interval 344 ms QTC Calculation(Bazett) 460 ms P [place] 62 degrees R [place] 62 degrees T [place] 25 degrees Sinus tachycardia Borderline criteria for Possible Inferior infarct , age undetermined Prolonged QT Abnormal ECG No previous ECGs available Confirmed by Ramon RICARDO BASANT ([id number]) on 08/23/2018 12:43:57 PM Performing Organization Address City/[facility]/Zipcode Phone Number GE MUSE * Lactic acid, venous, whole blood (08/22/2018 3:04 AM ENGINEERED WOOD DESIGNER) Lactate, Venous 0.8 0.5 - 2.2 mmol/L [facility] Specimen Blood Performing Organization Address City/[facility]/Zipcode Phone Number [facility] [address] [place] [address] [phone] [place] [address] after 12/14/2017 Insurance Payer Benefit Subscriber ID Type Phone Address Plan / Group [employer] - MGD UNITED HMO xxxxxxxxx HMO/POS CARE POS SELECT CHOICE Advance Directives For more information, please contact: [facility] [address] [place] [address] Date Inactivated Comments Code Status Date Activated 09/26/2018 6:04 PM Full Code 08/22/2018 2:32 AM This code status was determined by: Patient
[2018-12-15] MEDS ORDERED: PEPCID20 MG PO (03:24)
[2018-12-15] MEDS ORDERED: ZOFRAN4 MG PO (03:24)
[2018-12-15] MEDS ORDERED: GABAPENTIN300 MG PO (03:24)
[2018-12-15] MEDS ORDERED: HUMULIN R100 UNIT/2 (03:24)
[2018-12-15] MEDS ORDERED: MELATONIN3 MG PO (03:24)
[2018-12-15] MEDS ORDERED: ULTRAM 50MG50 MG PO (03:24)
[2018-12-15] MEDS ORDERED: LOVENOX60 MG/0.6 SC (03:24)
[2018-12-15] MEDS ORDERED: VITAMIN C500 M1 PO (03:24)
[2018-12-15] MEDS ORDERED: TYLENOL325 MG PO (03:24)
[2018-12-15] MEDS ORDERED: TYLENOL WITH C1 EACH PO (03:24)
[2018-12-15] MEDS ORDERED: ZINC SULFATE220 MG PO (03:24)
[2018-12-15] MEDS ORDERED: CYCLOBENZAPRINE10 MG PO (03:24)
[2018-12-15] MEDS ORDERED: MULTIVITAMINS1 EAC6 PO (03:24)
[2018-12-15] MEDS ORDERED: VITAMIN E400 UNI1 PO (03:24)
[2018-12-15] MEDS ORDERED: DEXTROSE 50% SYRINGE 50 ML IV PRN ×2 (03:30→12:45)
[2018-12-15] MEDS ORDERED: TRAMADOL HCL 50 MG TAB PO PRN (03:30)
[2018-12-15 03:45] VITALS: BP 122/87
--- NOTE | 2018-12-15 04:01 | NUR ---
Patient admitted with wound vac in place to sacrum. History of stage IV pressure ulcer to sacrum documented in October. Wound Vac left in place and wound care consult ordered
[2018-12-15 04:06] VITALS: BP 102/74
[2018-12-15 04:35] VITALS: BP 102/74
--- NOTE | 2018-12-15 04:36 | NUR ---
SPOKE TO MICHAEL WITH SIZE AGUILERA. ARRANGED FOR DELIVERY OF SPECIALITY LOW AIR LOSS ROTATIONAL BED. CONFIRMATION # [id number]. BED TO BE DELIVERED ON 12/15/18. PM NURSE MADE AWARE CONCERNING THE ABOVE INFORMATION.
--- NOTE | 2018-12-15 04:55 | NUR ---
Report received from GAUTAM Black. Patient admitted in unit @0333 by stretcher. Patient alert/oriented x3. Patient complained worse pain on her back and abdomen rate 9. Medicated Tramadol 50mg po for pain as ordered. No respiratory distress noted. Respiration even ad unlabored. Spo2 maintained 99% with RA. Patient's friend in the room. Head to toe assessment completed. Patient had colostomy bag continued and attached wound vac to medial sacrum. Bed in lower position,locked. Call cerda within reach. Patient instructed to call for help as needed,verbalized and understand. Will continue to monitor.
[2018-12-15] MEDS: CYCLOBENZAPRINE HCL 10 MG TAB PO SCH ×3 (05:56→22:01)
[2018-12-15] MEDS: ACETAMINOPHEN/CODEINE 300MG - 30MG TAB PO PRN ×2 (05:57→14:00)
[2018-12-15] MEDS: GABAPENTIN 300 MG CAP PO SCH ×3 (05:57→22:02)
[2018-12-15] MEDS ORDERED: ACETAMINOPHEN/CODEINE 300MG - 30MG TAB PO SCH (06:00)
--- NOTE | 2018-12-15 06:10 | NUR ---
Patient assisted to empty colostomy bag at this time, had small liquid brown/black BM. Patient tolerated well. Will continue to monitor.
[2018-12-15 09:00] VITALS: BP 102/74
[2018-12-15] MEDS ORDERED: ACETAMINOPHEN 325 MG TAB PO SCH (09:00)
[2018-12-15] MEDS: FAMOTIDINE 20 MG TAB PO SCH ×2 (09:49→17:23)
[2018-12-15] MEDS: ASCORBIC ACID 500 MG TAB PO SCH (09:49)
[2018-12-15] MEDS: MULTIVITAMINS/MINERALS TAB PO SCH (09:49)
[2018-12-15] MEDS: VITAMIN E 400 UNIT CAP PO SCH (09:50)
[2018-12-15] MEDS: INSULIN REGULAR, HUMAN 100 UNIT/1 ML 3ML VIAL SQ SCH ×4 (09:50→22:03)
[2018-12-15] MEDS: ZINC SULFATE 220 MG CAP PO SCH (09:50)
[2018-12-15] MEDS ORDERED: MULTIVITAMINS- 12 INJECTION 10 ML, FOLIC ACID MDV 5 MG, THIAMINE HCL INJ 100 MG in SODI... IV ONE (12:45)
[2018-12-15] MEDS ORDERED: VANCOMYCIN 750MG/NS 150ML IVPB 150 ML IV SCH (12:45)
--- NOTE | 2018-12-15 13:00 | NUR ---
Called DR. Bean informed him patient's hemoglobin 7.7
[2018-12-15 13:10] LABS: BASOPHILS % 0.2 % (0.0-1.0); EOSINOPHILS # (AUTO) 0.1 (0.0-0.4); EOSINOPHILS % 0.4 % (0.0-6.0); HEMATOCRIT 23.9 % (34.2-44.1); HEMOGLOBIN 7.7 g/dL (12.0-16.0); LYMPHOCYTES % 11.7 % (18.0-39.1); MEAN CORPUSCULAR HEMOGLOBIN 23.8 pg (28-32); MEAN CORPUSCULAR HGB CONC 32.2 g/dL (31-35); MONOCYTES # (AUTO) 1.1 (0.2-0.8); MONOCYTES % 6.5 % (4.4-11.3); NEUTROPHILS # (AUTO) 13.9 (2.1-6.9); NEUTROPHILS % 80.2 % (38.7-80.0); PLATELET COUNT 641 x10e3/uL (140-360); RED BLOOD COUNT 3.23 x10e6/uL (3.6-5.1)
--- NOTE | 2018-12-15 13:14 | NUR ---
Nutrition Intervention Note RD Recommendation(s) for Physician: -The patient meets criteria for unspecified SEVERE protein-calorie malnutrition. -Rec to liberalize diet to regular when medically feasible -Rec Ensure Enlive TID to increase protein-calorie intake -Rec Tyshawn BID to promote wound healing -Continue Megace to increase appetite -Continue MVi w/minerals, zinc sulfate, vitamin C -Encourage PO and hydration Plan of Care: RD following, monitoring for tolerance and adequacy, ONS rec Nutrition reason for involvement: Nutrition Risk Trigger MD SAY consult RD Assessment 12/15 58yo F, who was admitted for acute renal insufficiency and hyperkalemia. K WNL today. BG between 180 280. Pt was well known to me from her previous admission. Pt has had progressive weight loss since dx with uterine cancer in July 2018. Pt was d/c from [facility] on 11/01 and lost ~20lbs while staying in [place]. Visited pt in the room. Pt continued to have poor appetite with decreased PO intake. No complains of nausea or vomiting. Pt denied any chewing or swallowing difficulty. Ileostomy bag present. Wound care was consulted for pressure wound. Pt was agreeable with nutrition recommendation above; RD will communicate with MD. Will continue to monitor and follow. Principal Problems/Diagnoses: acute renal insufficiency, anemia, hyperkalemia (resolved) PMH: advanced uterine cancer, diabetes with stage III sacral decubitus ulcer GI: abdomen non-tender, round, flatus present, LBM 12/15 Skin: pressure ulcer present, wound care consulted Labs: (12/15) Na 128 L, BUN 74 H, Creatinine 1.96 H, Glucose 183 H, Ca 11.4 H Meds: (12/15) insulin, zinc sulfate, vitamin E, MVi w/minerals, pepcid, vitamin C, flexeril Ht: 61in Wt: 94.03lb BMI: 17.8kg/m2 IBW: 105lb Malnutrition Evaluation (12/15/2018) The patient meets criteria for unspecified SEVERE protein-calorie malnutrition. Energy intake: <75% of estimated energy requirements for >3 months Weight loss: >10% in 6 months (Chronic) Fat loss: Severe orbital with dark emmonak and hollow, apparent ribs, protrusion of clavicle Muscle loss: Severe temporal depression, squaring shoulder, protruding clavicle, thin calves Supporting Evidence: Fluid accumulation: unable to evaluate Functional Status: no changes Nutrition Prescription (Diet Order): Renal diet Estimated Nutritional Needs: Calories: 1290 1505kcal(30-35kcal/kg/d) Weight used : CBW Protein: 65 108g(1.5-2.5g/kg/d) Weight used: CBW Diet Adequacy: Not meeting calorie needs, Not meeting protein needs Diet Education Needs Assessment: Diet education indicated, but patient not appropriate for education at this time. Nutrition Care Level: high Nutrition Diagnosis: Severe cancer related malnutrition related to inadequate oral intake as evidenced by <75% of estimated energy requirements for >3 months, >10% weight loss in 6 months, and severe muscle/ fat loss upon NFPA. Goal: Patient will meet 75-100% of estimated needs by follow up Progress: N/A Interventions: General healthful diet, Commercial beverage, Commercial food, Prescription medications, Multivitamin/mineral supplement therapy, Collaboration with other providers Monitoring/Evaluation: Total energy intake, Total protein intake, Prescription medication, Modified diet, Liquid supplement, Weight change Signed: Kelly Saavedra, MS, RD, LD
--- NOTE | 2018-12-15 13:27 | NUR ---
ASSESSMENT: Spiritual distress Pt actively grieving murder of her 27 y/o son. Pt's friend, Inez, at bedside. Pt's friend states pt's son, Serg, was "murdered a few days ago." Pt identifies as Caodaism. Pt states Inez "saved my life many times." Pt & friend are coworkers at [employer]. Intervention: Provided hospitality and empathic listening. Expressed condolences. Provided information on how to reach design analyst, if needed. Outcome: Will follow as able. SHAAN CISSE Lead Based Paint Technician Spiritual Care Department O: [phone] Pager: [phone] ([phone] number calling from)
[2018-12-15 13:34] LABS: ANION GAP 15.8 mmol/L (8-16); CALCIUM 11.5 mg/dL (8.4-10.2); CREATININE, SERUM 1.48 mg/dL (0.57-1.11); POTASSIUM 3.8 mmol/L (3.5-5.1)
--- NOTE | 2018-12-15 13:36 | NUR ---
WOUND CARE CONSULTATION: INITIAL EVALUATION Patient admitted from Half-Way to ER for S/P Fall when going to restroom, Low Potassium, elevated WBC's HX: HTN, DM, Uterine Cancer, Kidney Stones, Bowel Resection with Colostomy, Lithotripsy. WBC: 23.13 HGB 8.63 HCT 28.6 NEUT% 80.6 GLU 183 ALB 2.5 Urine Culture ; Results Pending Pelvis X-Ray, CXR, Lumbar CT, Cervical Spine CT, Brain CT- Normal findings, no fractures Blood Cultures- REsults pending. Wound Culture during visit & Delivered to Lab. Dietitian on case and managing nutritional needs. PATIENT VISIT: - Pleasant 58 year-old female. AAOX4. Good historian. Cachexic. - Patient previously admitted here and treated for abscess of sacral stage IV pressure ulcer. - Patient was previously at [facility] in [place]. - Sacral area presents with full thickness ulceration, Oval, Irregular wound base with irregular granulation, Beefy Red. Wound Measures 4x3x0.5cm. 100% Granular. Improved since last hospitalization stay. Dick Score 13 Moderate PUP Active Rotational LISA Mattress in place. Patient able to turn self and avoids laying in bed over sacral wound. Patient on IV ABX = Ceftriaxone. IMPRESSION: Sacral - Stage IV Pressure Ulcer - Present On Admission. RECOMMENDATION: 1. Sacral- Stage IV- Pressure Ulcer - Present On Admission - Cleanse wound with NS and 4x4 gauze then apply NPWT -120mmHg Continuous. Change Three Times A Week. 2. Encourage patient to Turn and Reposition Patient Every 2 Hours. 3. HOB < or = to 30 Degrees as tolerated Thank you for consulting with Wound Care. Addendum: 12/15/18 at 1350 by Manoj Moss RN Amended: Links added.
[2018-12-15] MEDS ORDERED: MEROPENEM 500MG/ NS 50ML 500 MG in MEROPENEM 500MG/ NS 50ML 50 ML IV SCH (14:00)
--- NOTE | 2018-12-15 14:36 | NUR ---
Called Dr. Bean with lab results, made aware of radiology's concern patient's GFR 36 received orders to do PICC Line patient not a candidate for dialysis.
[2018-12-15] MEDS ORDERED: POTASSIUM CHLORIDE 20 MEQ TAB CR PO ONE (15:00)
[2018-12-15] MEDS ORDERED: MORPHINE SULFATE 2 MG/ML SYR 1ML IV PRN (15:00)
[2018-12-15] MEDS: MEROPENEM 500MG/ NS 50ML 50 ML IV SCH ×2 (15:10→22:05)
--- NOTE | 2018-12-15 15:50 | NUR ---
SPOKE WITH NURSE AND GAVE ADVANCED DIRECTIVE PACKET AND LET KNOW WHERE THEY ARE KEPT AND EDUCATED ABOUT MOBILE NOTARY.
[2018-12-15] MEDS ORDERED: MIDODRINE 2.5 MG TAB PO SCH (16:00)
[2018-12-15] MEDS ORDERED: ENOXAPARIN SOD INJ 60 MG/0.6 ML SYR SC SCH (17:00)
[2018-12-15] MEDS: MORPHINE SULFATE INJ 4 MG/ML INJ 1ML IV PRN ×2 (17:20→22:15)
[2018-12-15] MEDS: ENOXAPARIN SOD INJ 40 MG/0.4 ML SYR SC SCH (17:23)
[2018-12-15] MEDS: SODIUM BICARBONATE 650 MG TAB PO SCH (17:23)
[2018-12-15] MEDS: MIDODRINE HCL 5 MG TABLET PO SCH (17:40)
--- NOTE | 2018-12-15 18:10 | Diagnostic Imaging Report ---
Examination: Single AP view of the chest. COMPARISON: None. INDICATION: Line placement DISCUSSION: Lines/tubes: Right PICC line with tip overlying the SVC. Lungs: The lungs are well inflated and clear. No pneumonia or pulmonary edema. Pleura: There is no pleural effusion or pneumothorax. Heart and mediastinum: The heart and the mediastinum are unremarkable. Bones and soft tissues: No acute bony abnormalities. IMPRESSION: 1. Right PICC line with tip overlying the SVC. Signed by: Dr. Lupillo Levy M.D. on 12/15/2018 6:06 PM
[2018-12-15] MEDS: HYDROCODONE/APAP 5MG-325MG TAB PO PRN (19:46)
[2018-12-15 20:00] VITALS: BP 113/74
--- NOTE | 2018-12-15 20:58 | History and Physical ---
CHIEF COMPLAINT: Generalized weakness, fevers, and chills. HISTORY OF PRESENT ILLNESS: This is a 58-year-old female with known history of stage IV uterine cancer with chronic bilateral hydronephrosis, who apparently back in August of this year was in septic shock at [facility] and survived and transferred to [facility] for further rehabilitation. The patient reports that yesterday she was very weak, had some fevers and chills and concerned that she may have had urinary tract infection. The patient was then brought in by [facility] for further evaluation. She was found to have white count of 23 here. She was afebrile though her urine was consistent with possible urinary tract infection. During my evaluation, the patient looked to be very stable, alert, and oriented x4, but was talkative on my examination. The patient also has a friend at bedside and the patient was okay for me to talk to the friend as well about her overall health and care. She did voice to me that she wants to be full code at this time. The patient is on broad-spectrum IV antibiotics at the current moment and several consultants have been called to come evaluate the patient. The patient had a fall at the long-term after she was getting up going to the bathroom. Imaging study was found to be negative. REVIEW OF SYSTEMS: Pertinent positives: Dysuria, possible subjective fevers, chills, generalized weakness. Pertinent negative: Denies any chest pain, palpitation, nausea, vomiting, hematuria, frequency, urgency, lightheadedness, dizziness, abdominal pain, headaches, shortness of breath, cough, congestion, fever, or any other complaints. The rest of 14-point review of systems have been reviewed with the patient and are negative. ALLERGIES: NO KNOWN DRUG ALLERGIES. HOME MEDICATIONS: Tylenol No. 3, Tylenol 650 mg p.o. q.12 hours, ascorbic acid, Flexeril 10 mg t.i.d., Pepcid 20 mg b.i.d., gabapentin 300 mg every 8 hours, melatonin 5 mg at bedtime, multivitamin, tramadol 50 mg q.4 hours p.r.n. pain, zinc sulfate, vitamin E, Humulin R, and Lovenox. PAST MEDICAL HISTORY: 1. She has stage IV uterine cancer with chronic bilateral hydronephrosis, severely debilitated, stage IV sacral wound. 2. Peripheral neuropathy. 3. Chronic pain syndrome. PAST SURGICAL HISTORY: She had multiple stage IV sacral wound debridements, apparently had a possible hysterectomy, but cannot get the full history and story from the family and I do not have any records what truly occurred back in August 2018. FAMILY HISTORY: Hypertension and diabetes. SOCIAL HISTORY: No drugs. No alcohol. Does not smoke. Good social support. PHYSICAL EXAMINATION: VITAL SIGNS: Temperature is 97.4, pulse is 126, respiratory rate is 22, blood pressure is 102/74, and pulse ox is 99% on room air. GENERAL: She is very cachectic, alert and oriented x4. HEENT: Head is normocephalic and atraumatic. Eyes; pupils are equal, round, and reactive to light bilaterally. Extraocular movements are intact bilaterally. Throat, no evidence of erythema or exudates in the posterior pharynx. Has poor dentition. NECK: Supple. Good range of motion. PULMONARY: Clear to auscultation bilaterally. No wheezing, no rales, no rhonchi, no crackles appreciated. CARDIOVASCULAR: Positive S1, S2. No murmurs, rubs, or gallops appreciated. ABDOMEN: Soft, nondistended, and nontender to palpation. Bowel sounds present. MUSCULOSKELETAL: Strength is 5/5 throughout. No evidence of any muscle deficits on examination. No weakness appreciated. NEUROLOGICAL: Cranial nerves II through XII grossly intact. No evidence of any neurological deficits on exam. SKIN: Intact. Warm to touch. Good cap refill. PSYCHIATRIC: Normal affect and mood. EXTREMITIES: No edema. Good range of motion throughout. LAB FINDINGS: Show white count 23, hemoglobin 8.6, hematocrit 28.6, and platelets of 811. Chemistry; sodium was 128, potassium was 6.9 last night and now 4.4 after treatment, chloride 102, bicarb 11, anion gap of 20, BUN 74, creatinine 1.96, glucose 183, calcium is 11.4, total bilirubin was 0.1. AST 35, ALT 43, alkaline phosphatase 184, total protein 7.1, albumin 2.5. Urinalysis is concerning for urinary tract infection. MICROBIOLOGY: Urine cultures are pending. IMAGING STUDIES: Lumbar x-ray shows no lumbar spine fracture or subluxation. There is persistent bilateral hydronephrosis secondary to partially imaged . Chest x-ray is negative. Cervical spine CT, no cervical spine fracture or subluxation. CT brain was negative. Pelvis x-ray, no evidence of acute fracture. IMPRESSION: 1. Sepsis secondary to urinary tract infection with leukocytosis and lactic acidosis. 2. Stage IV sacral wound. 3. Severe protein-calorie malnutrition. 4. Stage IV uterine cancer. 5. Generalized weakness with medically debilitated. 6. Chronic bilateral hydronephrosis. 7. Metabolic acidosis with hyperkalemia. 8. Acute kidney injury. PLAN: At this time, urine culture was collected. Blood culture was not, I am going to go ahead and order to set up blood cultures x2. Change antibiotics to IV Merrem and vancomycin. Get ID consultation. I will go ahead and consult Urology for this underlying bilateral hydronephrosis. The patient has ureteral stents, this is likely chronic. There is probably no intervention to best serve with hospice services, but the patient does not want to hear that nor does her friend at bedside. We will go ahead and get Wound Care team to do some wound care on her stage IV sacral wound. The patient is on a bicarb drip at 75 mL/hour. Her potassium improved, which we will monitor that very closely. In relation to her acute kidney injury, it has improved and we will go ahead and get a repeat chemistry at this time. She is mildly hypotensive. I will go ahead and put midodrine 10 mg p.o. t.i.d. Start on sodium bicarb tabs 1300 mg p.o. b.i.d. I will also go ahead and get nutrition consultation and add supplemental shakes. I spent more than 40 minutes of critical care time on this case. MD CHASE Saravia/TALHA /[id number]
[2018-12-15] MEDS ORDERED: MELATONIN 3 MG TAB PO SCH (21:00)
[2018-12-15] MEDS: MELATONIN 5 MG TABLET PO SCH (21:57)
[2018-12-15] MEDS ORDERED: MEROPENEM 500MG/ NS 50ML 50 ML IV SCH (22:00)
--- NOTE | 2018-12-16 00:24 | Consultation ---
DATE OF CONSULTATION: 12/15/2018 REASON FOR CONSULTATION: Sepsis, UTI. HISTORY OF PRESENT ILLNESS: This patient who is an unfortunate and very pleasant 58-year-old Malay lady with history of heavy smoking. She was diagnosed back in July with uterine cancer. The patient underwent surgery in [facility]. Apparently, it got complicated that she has ruptured the perforation of the intestine. She was treated with antibiotic and discharged to [facility], came back again septic, went to [facility], where again she had peritonitis and intraperitoneal abscess. She had a lengthy stay. During her stay, she developed decubitus ulcer. The patient apparently her cancer is advanced with metastases, but oncologist at the [facility] would not start treatment until she heal her wound on the back. In the meantime, the patient was transferred to [facility] facility, where she was getting wound care; however, she has been losing weight. She lost 15 pounds over the last month or so. The patient is not eating and complicated issues, her son just a week ago and she is in severe depression. She has no more family here in the [place] Her friend is sitting next to her. 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 PAST MEDICAL HISTORY: Uterine cancer with complication as above. PAST SURGICAL HISTORY: Two abdominal surgeries, the first one was to try to attempt to remove the cancer, which was unsuccessful because the cancer has spread. The second one for perforation of the gut. ALLERGIES: NKA. SOCIAL HISTORY: Currently, she denies smoking, drug abuse, or alcohol abuse, but she used to smoke heavily for 40 years and quit back in July. FAMILY HISTORY: Noncontributory. LABORATORY DATA: Reviewed. Her blood cultures and urine culture are still pending. Her white count on admission was 23.13, hemoglobin of 8.6, today is 7.7. Sodium 128, potassium 6.9, creatinine 1.96, glucose of 183. MEDICATIONS: She is currently on meropenem, gabapentin, Flexeril, vancomycin, vitamin E, melatonin, [place], Tylenol, and Zofran. REVIEW OF SYSTEMS: GENERAL: She is just generally very weak. HEENT: There is no headache, visual changes, or hearing changes. GI: There is no nausea, no vomiting, no diarrhea. CARDIAC: There is no arrhythmia. NEURO: No seizure activity. SKIN: There is no rash. She has a decubitus ulcer on the back, which has a wound VAC on it. Please refer to the wound care. According to her friend, who is following closely, the decubitus ulcer has been healing. IMPRESSION: 1. Sepsis on admission, source probably urinary tract infection. Pneumonia is other possibility. Agree with vancomycin and agree with meropenem; however, we will adjust this for kidney function. Await culture and sensitivity. 2. Depression. Recommend to start antidepressant. 3. Sepsis, seems to be better. 4. Malnutrition. Recommend protein supplement as well as multivitamin. 5. Acute kidney injury, probably component of dehydration. 6. Cervical cancer, metastasized. 7. Hyperkalemia, addressed. 8. Hyponatremia, also being corrected. 9. Concern about the component of diabetes mellitus. 10. History of smoking, quit. 11. We will follow with you. We will follow with the level of vancomycin. Continue local care, nutritional support. MD PEGGY Ford/TALHA /[id number]
[2018-12-16] MEDS: HYDROCODONE/APAP 5MG-325MG TAB PO PRN ×2 (04:52→10:28)
[2018-12-16 04:59] LABS: BASOPHILS # (AUTO) 0.1 (0.0-0.1); BASOPHILS % 0.3 % (0.0-1.0); EOSINOPHILS # (AUTO) 0.3 (0.0-0.4); EOSINOPHILS % 1.3 % (0.0-6.0); LYMPHOCYTES # (AUTO) 1.8 (1.0-3.2); LYMPHOCYTES % 9.2 % (18.0-39.1); MEAN CORPUSCULAR HGB CONC 31.3 g/dL (31-35); MEAN CORPUSCULAR VOLUME 76.7 fL (81-99); MONOCYTES # (AUTO) 1.3 (0.2-0.8); MONOCYTES % 6.6 % (4.4-11.3); NEUTROPHILS # (AUTO) 15.5 (2.1-6.9); NEUTROPHILS % 81.3 % (38.7-80.0); PLATELET COUNT 596 x10e3/uL (140-360); RED BLOOD COUNT 2.92 x10e6/uL (3.6-5.1); RED CELL DISTRIBUTION WIDTH 16.4 % (11.7-14.4)
[2018-12-16 05:08] LABS: HEMATOCRIT 22.4 % (34.2-44.1)
[2018-12-16 05:20] LABS: ALBUMIN 2.1 g/dL (3.5-5.0); ALBUMIN/GLOBULIN RATIO 0.6 (0.8-2.0); ANION GAP 10.9 mmol/L (8-16); CALCIUM 10.6 mg/dL (8.4-10.2); CREATININE, SERUM 1.18 mg/dL (0.57-1.11); POTASSIUM 4.9 mmol/L (3.5-5.1)
[2018-12-16] MEDS: CYCLOBENZAPRINE HCL 10 MG TAB PO SCH ×3 (05:47→21:41)
[2018-12-16] MEDS: GABAPENTIN 300 MG CAP PO SCH ×3 (05:47→21:41)
[2018-12-16] MEDS: MEROPENEM 500MG/ NS 50ML 50 ML IV SCH ×3 (05:47→21:41)
[2018-12-16] MEDS: MORPHINE SULFATE INJ 4 MG/ML INJ 1ML IV PRN ×3 (07:45→18:20)
[2018-12-16 08:00] VITALS: BP 102/76
[2018-12-16] MEDS: SODIUM BICARBONATE 650 MG TAB PO SCH ×2 (10:28→19:19)
[2018-12-16] MEDS: FAMOTIDINE 20 MG TAB PO SCH ×2 (10:28→19:19)
[2018-12-16] MEDS: VITAMIN E 400 UNIT CAP PO SCH ×2 (10:28→10:47)
[2018-12-16] MEDS: ASCORBIC ACID 500 MG TAB PO SCH (10:28)
[2018-12-16] MEDS: MULTIVITAMINS/MINERALS TAB PO SCH (10:28)
[2018-12-16] MEDS: ZINC SULFATE 220 MG CAP PO SCH (10:28)
[2018-12-16] MEDS: MIDODRINE HCL 5 MG TABLET PO SCH ×3 (10:31→16:45)
[2018-12-16] MEDS: MEGACE 400MG/ 10ML CUP PO SCH (10:47)
[2018-12-16] MEDS: INSULIN REGULAR, HUMAN 100 UNIT/1 ML 3ML VIAL SQ SCH ×4 (10:48→21:00)
[2018-12-16 12:00] VITALS: BP 112/76
[2018-12-16] MEDS ORDERED: VANCOMYCIN 750MG/NS 150ML IVPB 150 ML IV SCH (12:45)
[2018-12-16] MEDS ORDERED: SODIUM CHLORIDE 0.9% 250ML 250 ML IV ONE (13:15)
[2018-12-16] MEDS ORDERED: SODIUM CHLORIDE 0.9% 250ML 250 ML IV NR (13:15)
[2018-12-16] MEDS ORDERED: SODIUM CHLORIDE 0.9% 250ML 250 ML ONE ×2 (14:54→17:11)
[2018-12-16] MEDS: VANCOMYCIN 750MG/NS 150ML IVPB 150 ML IV SCH (14:56)
--- NOTE | 2018-12-16 15:22 | Progress Note ---
DATE: 12/16/2018 Medicine Progress Note SUBJECTIVE: The patient seems to be doing much better today compared to yesterday. She is not eating much, only taking supplemental shakes. Her blood pressure is much improved. No overnight events. OBJECTIVE: VITAL SIGNS: Temperature is 99.7, pulse 116, respiratory rate is 16, blood pressure is 102/74, pulse ox 100% on room air. GENERAL: Not in acute distress. Alert and oriented x3. Cooperative on examination. HEENT: Head is normocephalic, atraumatic. Eyes; pupils equal, round, reactive to light bilaterally. Extraocular movements intact bilaterally. Throat, no evidence of exudates in the posterior pharynx. Has poor dentition. NECK: Supple. Good range of motion. PULMONARY: Clear to auscultation bilaterally. No wheezing, rales, or rhonchi. No crackles appreciated. CARDIOVASCULAR: Positive S1, S2. No murmurs, rubs, or gallops appreciated. ABDOMEN: Soft, nondistended, nontender to palpation. Bowel sounds present. MUSCULOSKELETAL: Strength is 5/5 throughout. No evidence of any muscle deficits on examination. No weakness appreciated. NEUROLOGIC: Cranial nerves II through XII grossly intact. No evidence of any neurological deficits on exam. SKIN: Intact. Warm to touch. Good cap refill. PSYCHIATRIC: Normal affect and mood. EXTREMITIES: No edema. Good range of motion throughout. LABORATORY DATA: Lab findings show white count 19, hemoglobin 7, hematocrit is 22, platelets of 596. Chemistry; sodium 133, potassium 4.9, chloride 108, bicarb 19, anion gap of 10, BUN is 56, creatinine is 1.1, glucose is 155, calcium is 10.6. Albumin 2.1. Urinalysis, none today. MICROBIOLOGY: Urine cultures, no growth to date. Wound cultures, no growth. Blood cultures, still pending. IMAGING STUDIES: Nothing new today. IMPRESSION: 1. Sepsis secondary to urinary tract infection with leukocytosis and lactic acidosis. 2. Stage IV sacral wound. 3. Severe protein-calorie malnutrition. 4. Stage IV uterine cancer with metastasis. 5. Generalized weakness and medical debilitation. 6. Chronic bilateral hydronephrosis. 7. Metabolic acidosis with hyperkalemia, improving. 8. Acute kidney injury. 9. Hypercalcemia. 10. Anemia of chronic disease. PLAN: At this time, all cultures have been collected, found to be no growth to date. Continue with IV antibiotics. Renally adjusted antibiotics, and ID is following closely. Hematology/Oncology was consulted to help in assistance with this stage IV uterine cancer with metastasis. Urology was consulted for the bilateral hydronephrosis. Her renal function and her potassium and electrolytes all improved. She is found to be anemic, type and screen and transfuse 1 unit of packed RBCs. We will continue with normal saline for hydration. Encourage oral p.o. intake as well. Continue with oral midodrine and bicarb tabs. I spent a significant period of time talking to her about hospice services. At this time, she does not seem to be very interested in speaking to me about it, though she thought about it in the past. I offered her to see Case Management and possibly having a couple of companies to come talk with the patient. At this time, she is not interested and she will think about it and maybe possibly let me know on Tuesday. I discussed this plan of care with the nurse as well who was at bedside during this conversation. We will continue same plan of care and monitor very closely. Spent more than 35 minutes of critical care time on this case. The patient continues to be in IMCU. MD CHASE Saravia/TALHA /[id number]
[2018-12-16] MEDS: DEXTROSE 5%/0.9% SOD CHL 1,000 ML IV SCH (15:37)
[2018-12-16] MEDS: HYDROCODONE/APAP 10MG-325MG TAB PO PRN ×2 (15:40→21:44)
[2018-12-16 17:00] VITALS: BP 123/70
[2018-12-16] MEDS: ENOXAPARIN SOD INJ 40 MG/0.4 ML SYR SC SCH (17:00)
--- NOTE | 2018-12-16 19:00 | NUR ---
Handoff report to oncoming finance mgr nurse, made aware Lovenox r/t bleeding and hemiglobin 7.0, asked nurse to call attending and notify him if ok to give. Verbalized understanding.
[2018-12-16 20:00] VITALS: BP_SYST 113; BP_SYST 114; BP_DIAS 72
[2018-12-16] MEDS: MELATONIN 5 MG TABLET PO SCH (21:41)
--- NOTE | 2018-12-16 23:19 | Consultation ---
DATE OF CONSULTATION: 12/15/2018 CONSULTING PHYSICIAN: Alba Weaver MD, Hematology/Oncology Service. REASON FOR CONSULTATION: Evaluation and management of the patient with known history of uterine cancer. HISTORY OF PRESENT ILLNESS: Ms. Nash is a 58-year-old female with multiple medical problems including known history of advanced metastatic uterine cancer, chronic sacral wound, neuropathy as well as chronic pain syndrome, admitted to the hospital due to generalized weakness, fever, chills, and septic shock. She has been treated with IV antibiotics. Now, Hematology/Oncology has been consulted to assist with the management to address the goals of care. The patient did state that she was diagnosed with uterine cancer back in July 2018, and at that time, she was evaluated by outside oncologist, Dr. Maya Austin, in [place]. She underwent workup and has been told she had a locally advanced uterine cancer. At that time, she was felt to be very debilitated and recommended no chemotherapy or radiation treatment, rather the patient elected best supportive care. She had a rough course with multiple hospitalizations due to sepsis and septic shock. Most recently, she was at [facility] for rehabilitation. PAST MEDICAL HISTORY: 1. Locally advanced uterine cancer causing compression on ureter. 2. Bilateral hydronephrosis due to compression. 3. Failure to thrive. 4. Chronic sacral wound. 5. History of sepsis and recurrent infection. 6. Peripheral neuropathy. 7. Chronic pain syndrome. PAST SURGICAL HISTORY: 1. Multiple wound debridements. 2. Partial hysterectomy. FAMILY HISTORY: Hypertension, diabetes mellitus. SOCIAL HISTORY: Denies history of smoking, alcohol use, or illicit drug use. ALLERGIES: NO KNOWN DRUG ALLERGIES. CURRENT MEDICATIONS: Reviewed and as per electronic medical record. REVIEW OF SYSTEMS: A 14-point review of systems negative except as mentioned per history of present illness as well as positive for fatigue, tiredness, weakness, limited mobility, and failure to thrive. LABORATORY DATA: Reviewed and as per electronic medical record. ASSESSMENT AND PLAN: Ms. Nash is a 58-year-old female with complicated past medical history including known history of locally advanced uterine cancer causing compression on the ureter leading to bilateral hydronephrosis and renal insufficiency, now presented with fever, generalized weakness, and sepsis. She has been started on antibiotics. Hematology/ Oncology has been consulted to assist with the management. I have reviewed the record and discussed at length with the patient about her current disease and importance of best supportive care. I had a lengthy discussion, and after discussion, it has been learned that the patient does not want any further aggressive measures including chemotherapy, radiation, or any other kind of treatment for the cancer, rather would like to have best supportive care. I have also discussed the do not resuscitate/do not intubate status as well as hospice as an option. She would like to think about it and let me know in next 24-48 hours. Meanwhile, we will continue best supportive care including transfusions. She already has been getting treated for with IV antibiotic and has received wound care. Due to severe anemia and drop in hemoglobin, I will give her 2 units of PRBC transfusion. On arrival, the patient was also significantly hypercalcemic and presently calcium is trending down after getting IV hydration. I do not see that the patient has received bisphosphonate, though this can be considered if needed. Thank you for the consult. I will continue to be available. Please call with questions. MD JAYSHREE Schaffer/MODL /[id number]
[2018-12-17] VITALS (9 sets, daily range): BP systolic 103–127; BP diastolic 64–82
[2018-12-17] MEDS: DEXTROSE 5%/0.9% SOD CHL 1,000 ML IV SCH ×2 (01:40→15:02)
[2018-12-17] MEDS: MORPHINE SULFATE INJ 4 MG/ML INJ 1ML IV PRN ×3 (01:40→09:10)
[2018-12-17] MEDS: HYDROCODONE/APAP 10MG-325MG TAB PO PRN ×3 (04:38→16:25)
[2018-12-17 05:02] LABS: BASOPHILS % 0.2 % (0.0-1.0); EOSINOPHILS # (AUTO) 0.4 (0.0-0.4); EOSINOPHILS % 2.1 % (0.0-6.0); HEMOGLOBIN 7.9 g/dL (12.0-16.0); LYMPHOCYTES # (AUTO) 2.1 (1.0-3.2); LYMPHOCYTES % 11.4 % (18.0-39.1); MEAN CORPUSCULAR HEMOGLOBIN 25.2 pg (28-32); MEAN CORPUSCULAR HGB CONC 32.9 g/dL (31-35); MEAN CORPUSCULAR VOLUME 76.7 fL (81-99); MONOCYTES # (AUTO) 1.3 (0.2-0.8); MONOCYTES % 7.3 % (4.4-11.3); NEUTROPHILS # (AUTO) 14.2 (2.1-6.9); NEUTROPHILS % 77.6 % (38.7-80.0); PLATELET COUNT 493 x10e3/uL (140-360); RED BLOOD COUNT 3.13 x10e6/uL (3.6-5.1); RED CELL DISTRIBUTION WIDTH 16.2 % (11.7-14.4)
[2018-12-17 05:20] LABS: ANION GAP 10.2 mmol/L (8-16); BLOOD UREA NITROGEN 41 mg/dL (7-26); BUN/CREATININE RATIO 63 (6-25); CALCIUM 10.3 mg/dL (8.4-10.2); CARBON DIOXIDE 19 mmol/L (22-29); CHLORIDE 110 mmol/L (98-107); CREATININE, SERUM 0.65 mg/dL (0.57-1.11); EST GLOMERULAR FILTRATION RATE > 60 ML/MIN (60-); GLUCOSE 151 mg/dL (74-118); POTASSIUM 4.2 mmol/L (3.5-5.1); SODIUM 135 mmol/L (136-145)
[2018-12-17] MEDS: MEROPENEM 500MG/ NS 50ML 50 ML IV SCH ×3 (05:36→21:05)
[2018-12-17] MEDS: CYCLOBENZAPRINE HCL 10 MG TAB PO SCH ×3 (05:39→21:04)
[2018-12-17] MEDS: GABAPENTIN 300 MG CAP PO SCH ×3 (05:40→21:04)
[2018-12-17] MEDS: INSULIN REGULAR, HUMAN 100 UNIT/1 ML 3ML VIAL SQ SCH ×4 (09:00→21:01)
[2018-12-17] MEDS: SODIUM BICARBONATE 650 MG TAB PO SCH ×2 (09:30→18:44)
[2018-12-17] MEDS: ZINC SULFATE 220 MG CAP PO SCH (09:30)
[2018-12-17] MEDS: VITAMIN E 400 UNIT CAP PO SCH (09:30)
[2018-12-17] MEDS: FAMOTIDINE 20 MG TAB PO SCH ×2 (09:30→18:44)
[2018-12-17] MEDS: MULTIVITAMINS/MINERALS TAB PO SCH (09:30)
[2018-12-17] MEDS: ASCORBIC ACID 500 MG TAB PO SCH (09:30)
[2018-12-17] MEDS: MIDODRINE HCL 5 MG TABLET PO SCH ×3 (09:30→18:44)
[2018-12-17] MEDS: MEGACE 400MG/ 10ML CUP PO SCH (10:23)
--- NOTE | 2018-12-17 14:07 | Progress Note ---
DATE: 12/17/2018 Medicine Progress Note SUBJECTIVE: The patient was seen and evaluated at bedside with the nurse present. She is still complaining of pain. Morphine will be changed to Dilaudid. She still states that [place] is not helping or the morphine. I did talk to her about hospice. She tells me that she is not interested in hospice at this time. She did talk to the oncologist yesterday, which he did mention to her about hospice, but she is still not interested. PHYSICAL EXAMINATION: VITAL SIGNS: Temperature is 98.3, pulse 116, respiratory rate is 22, blood pressure 103/71 pulse ox 100% on room air. GENERAL: Not in acute distress. Alert and oriented x3. Cooperative on examination. HEENT: Head is normocephalic, atraumatic. Eyes; pupils are equal, round, and reactive to light bilaterally. Extraocular movements are intact bilaterally. Throat, no evidence of exudates in the posterior pharynx. Has poor dentition. NECK: Supple. Good range of motion. PULMONARY: Clear to auscultation bilaterally. No wheezing. No rales. No rhonchi. No crackles appreciated. CARDIOVASCULAR: Positive S1, S2. No murmurs, rubs, or gallops appreciated. ABDOMEN: Soft, nondistended, nontender to palpation. Bowel sounds present. MUSCULOSKELETAL: Strength is 5/5 throughout. No evidence of any muscle deficits on examination. No weakness appreciated. NEUROLOGIC: Cranial nerves II through XII grossly intact. No evidence of any neurological deficits on exam. SKIN: Intact. Warm to touch. Good cap refill. PSYCHIATRIC: Normal affect and mood. EXTREMITIES: No edema. Good range of motion throughout. LABORATORY DATA: Lab findings show white count is 18, hemoglobin 7.9, hematocrit 24, platelets of 493. Chemistry; sodium 135, potassium 4.2, chloride 110, bicarb 19, anion gap of 10, BUN 41, creatinine 0.65, glucose 151, calcium is 10.3. MICROBIOLOGY: Urine cultures, no growth. Blood cultures, no growth today. Wound cultures, no growth. IMAGING STUDIES: None. IMPRESSION: 1. Sepsis secondary to urinary tract infection with leukocytosis and lactic acidosis. 2. Stage 4 sacral wound. 3. Severe protein-calorie malnutrition. 4. Stage IV uterine cancer with metastasis. 5. Generalized weakness and medical debilitation. 6. Chronic bilateral hydronephrosis. 7. Metabolic acidosis with hyperkalemia, improving. 8. Acute kidney injury. 9. Hypercalcemia of malignancy. 10. Anemia of chronic disease, status post blood transfusion. PLAN: At this time, all cultures have been collected and found to be negative. She is still on IV antibiotics and ID is following very closely. She is getting daily wound care with wound care services. She is on supplemental shakes, but I am encouraging for feeds. In relation to her uterine cancer metastasis, I did have Oncology talk with her. He has suggested supportive care with hospice. At this time, the patient does not seem to be very interested in that, though she is qualified for. We will continue to follow with Oncology recommendations. Continue to work with PT and OT. In relation to her hydronephrosis, Neurology was consulted. I do not see in note, but she was told that she needed to get the ureteral stent removed and likely is the reason why she has some slight hematuria. Her renal function is improved. Her calcium is improving daily. She did receive blood transfusion as well which shows hemoglobin 7.9. At this time get a.m. labs. Continue same plan of care. IV antibiotics. Follow [employer] consultant's recommendations. MD CHASE Saravia/TALHA /[id number]
[2018-12-17] MEDS: HYDROMORPHONE 2MG/ML 2 MG/ML ML IV PRN ×3 (14:11→21:40)
[2018-12-17] MEDS: VANCOMYCIN 750MG/NS 150ML IVPB 150 ML IV SCH (15:02)
--- NOTE | 2018-12-17 15:10 | NUR ---
Visit made by the Spiritual Care Department Pastoral Visitor, Rhianna Escudero. PV provided pastoral presence, prayer, communion, hospitality, and supportive listening. Pastoral Visitor informed pt/family of the scope of Surgical Clinical Reviewer Services and availability. SHAAN CISSE Technical Account Manager Spiritual Care Department O: [phone] Pager: [phone] ([phone] number calling from)
[2018-12-17] MEDS: ENOXAPARIN SOD INJ 40 MG/0.4 ML SYR SC SCH (18:44)
[2018-12-17] MEDS: MELATONIN 5 MG TABLET PO SCH (21:00)
[2018-12-18] MEDS: HYDROCODONE/APAP 10MG-325MG TAB PO PRN ×4 (00:19→22:38)
[2018-12-18] MEDS: HYDROMORPHONE 2MG/ML 2 MG/ML ML IV PRN ×5 (01:20→18:29)
--- NOTE | 2018-12-18 02:48 | NUR ---
Report given to Savanna Hairston RN for nurse change at this time.
[2018-12-18 04:00] VITALS: BP 123/77
[2018-12-18 04:54] LABS: BASOPHILS % 0.3 % (0.0-1.0); EOSINOPHILS # (AUTO) 0.3 (0.0-0.4); EOSINOPHILS % 2.1 % (0.0-6.0); HEMATOCRIT 25.4 % (34.2-44.1); HEMOGLOBIN 8.1 g/dL (12.0-16.0); LYMPHOCYTES # (AUTO) 2.2 (1.0-3.2); LYMPHOCYTES % 14.4 % (18.0-39.1); MEAN CORPUSCULAR HEMOGLOBIN 24.8 pg (28-32); MEAN CORPUSCULAR HGB CONC 31.9 g/dL (31-35); MEAN CORPUSCULAR VOLUME 77.7 fL (81-99); MONOCYTES # (AUTO) 1.2 (0.2-0.8); MONOCYTES % 7.7 % (4.4-11.3); NEUTROPHILS # (AUTO) 11.5 (2.1-6.9); NEUTROPHILS % 74.1 % (38.7-80.0); PLATELET COUNT 473 x10e3/uL (140-360); RED BLOOD COUNT 3.27 x10e6/uL (3.6-5.1); RED CELL DISTRIBUTION WIDTH 16.9 % (11.7-14.4)
[2018-12-18 05:10] LABS: ANION GAP 9.4 mmol/L (8-16); BLOOD UREA NITROGEN 29 mg/dL (7-26); BUN/CREATININE RATIO 53 (6-25); CARBON DIOXIDE 22 mmol/L (22-29); CHLORIDE 110 mmol/L (98-107); CREATININE, SERUM 0.55 mg/dL (0.57-1.11); EST GLOMERULAR FILTRATION RATE > 60 ML/MIN (60-); GLUCOSE 137 mg/dL (74-118); POTASSIUM 4.4 mmol/L (3.5-5.1); SODIUM 137 mmol/L (136-145)
[2018-12-18] MEDS: MEROPENEM 500MG/ NS 50ML 50 ML IV SCH ×3 (06:00→21:29)
[2018-12-18] MEDS: GABAPENTIN 300 MG CAP PO SCH ×3 (06:00→21:14)
[2018-12-18] MEDS: CYCLOBENZAPRINE HCL 10 MG TAB PO SCH ×3 (06:00→21:14)
--- NOTE | 2018-12-18 06:26 | NUR ---
Paged Dr Bean for orders for pain medication. Patient stating norco not helping. Awaiting call back
[2018-12-18] MEDS: DEXTROSE 5%/0.9% SOD CHL 1,000 ML IV SCH ×2 (06:27→15:00)
[2018-12-18] MEDS ORDERED: HYDROMORPHONE 1MG/1ML INJ IV ONE (07:00)
--- NOTE | 2018-12-18 07:13 | NUR ---
Left message for new consult for Tom Espinal for pain management.
[2018-12-18] MEDS ORDERED: HYDROMORPHONE 2MG/ML 2 MG/ML ML IV SCH (07:15)
[2018-12-18 07:30] VITALS: BP 108/75
[2018-12-18] MEDS: INSULIN REGULAR, HUMAN 100 UNIT/1 ML 3ML VIAL SQ SCH ×4 (07:30→20:55)
--- NOTE | 2018-12-18 08:43 | NUR ---
Dr. Art making rounds at bedside, discussed pain management with patient.
[2018-12-18] MEDS ORDERED: HYDROMORPHONE 1MG/1ML INJ IV PRN (08:45)
[2018-12-18] MEDS: ZINC SULFATE 220 MG CAP PO SCH (08:58)
[2018-12-18] MEDS: MULTIVITAMINS/MINERALS TAB PO SCH (08:58)
[2018-12-18] MEDS: MIDODRINE HCL 5 MG TABLET PO SCH ×3 (08:58→16:25)
[2018-12-18] MEDS: MEGACE 400MG/ 10ML CUP PO SCH (08:58)
[2018-12-18] MEDS: ASCORBIC ACID 500 MG TAB PO SCH (08:58)
[2018-12-18] MEDS: FAMOTIDINE 20 MG TAB PO SCH ×2 (08:58→16:25)
[2018-12-18] MEDS: SODIUM BICARBONATE 650 MG TAB PO SCH ×2 (08:58→16:25)
[2018-12-18] MEDS: VITAMIN E 400 UNIT CAP PO SCH (08:58)
--- NOTE | 2018-12-18 09:10 | NUR ---
Dilaudid 1mg IV given as ordered by Dr. Art.
--- NOTE | 2018-12-18 09:40 | NUR ---
Patient appears more comfortable at this time after receiving pain medication. Call cerda within reach.
--- NOTE | 2018-12-18 10:08 | NUR ---
ASSESSMENT: Pt in pain Follow-up visit. Pt states she is in pain and not open for visit at this time. Intervention: Provided empathic listening. Provided rosaleandra with prayer instructions. Outcome: Followed up with RN. Will continue to follow as able. SHAAN CISSE Contour Grinder Spiritual Care Department O: [phone] Pager: [phone] ([phone] number calling from)
--- NOTE | 2018-12-18 11:00 | NUR ---
Dr. Bean at the bedside making rounds. He discussed POC with patient.
[2018-12-18] MEDS ORDERED: ONDANSETRON HCL 4 MG ORAL DISINTEGRATING TAB PO PRN (11:30)
--- NOTE | 2018-12-18 11:30 | NUR ---
Dr. Velazquez at the bedside making rounds, explained to patient need for CT scan. Patient verbalized understanding.
[2018-12-18 12:00] VITALS: BP 116/68
--- NOTE | 2018-12-18 13:10 | NUR ---
ORDER RECEIVED FOR HOSPICE EVALUATION. DISCUSSED PT IN MDR. [facility] HAD SPOKEN W THE PT ABOUT SPEAKING TO A HOSPICE REP. CM MET W THE PT AT THE BEDSIDE. PT STATES SHE DOES NOT WANT HOSPICE AT THIS TIME. STATES SHE WANTS TO SEE THE [facility] AT [place] ON TUESDAY. INFORMED PT SHE HAS EVERY RIGHT TO CHOOSE. PT VERBALIZED UNDERSTANDING. EXPLAINED THE PURPOSE OF SPEAKING W THE HOSPICE REP. PT AGREED TO MEET W THE REP, BUT REFUSED TO SIGN CONSENT. STATES SHE ONLY WANTS TO HAVE THE CONVERSATION. CM AGREED. DISCUSSED DC PLAN. PT STATES SHE WANTS TO RETURN TO [place] OR HOME. INFORMED HER I WILL REQUEST ORDER FROM [facility] TO BEGIN THE PROCESS. STATES SHE IS NOT READY TO YET AND WOULD LIKE TO EXPLORE ALL OPTIONS. CALL WAS PLACE TO [facility]. [facility] STATES THEY DO NOT ACCEPT [facility], BUT WILL COME TO TALK TO THE PT ABOUT HOSPICE. CM WILL CONTINUE TO FOLLOW.
--- NOTE | 2018-12-18 13:18 | NUR ---
Nutrition Intervention Note RD Recommendation(s) for Physician: - The patient meets criteria for unspecified SEVERE protein-calorie malnutrition. - Continue regular diet as ordered - Continue Ensure Enlive TID to increase protein-calorie intake - Continue Tyshawn BID to promote wound healing - Continue Megace to increase appetite - Continue MVi w/minerals, zinc sulfate, vitamin C - Encourage PO and hydration Plan of Care: RD following, monitoring for tolerance and adequacy, ONS rec Nutrition reason for involvement: Follow up RD Assessment 12/18 Pt was discussed during AM rounds. Visited pt in the room. Pt continues to have poor appetite with 0% breakfast intake today. Friend has been bringing foods to her. Pt drank 100% of Ensure ordered. Discussed option for tube feeding; pt was not interested. Will continue to monitor and follow. 12/15 58yo F, who was admitted for acute renal insufficiency and hyperkalemia. K WNL today. BG between 180 280. Pt was well known to me from her previous admission. Pt has had progressive weight loss since dx with uterine cancer in July 2018. Pt was d/c from [facility] on 11/01 and lost ~20lbs while staying in [place]. Visited pt in the room. Pt continued to have poor appetite with decreased PO intake. No complains of nausea or vomiting. Pt denied any chewing or swallowing difficulty. Ileostomy bag present. Wound care was consulted for pressure wound. Pt was agreeable with nutrition recommendation above; RD will communicate with MD. Will continue to monitor and follow. Principal Problems/Diagnoses: acute renal insufficiency, anemia, hyperkalemia (resolved) PMH: advanced uterine cancer, diabetes with stage III sacral decubitus ulcer GI: abdomen non-tender, flat, soft, flatus present, liquid brown stool, + ileostomy Skin: Sacral - Stage IV Pressure Ulcer - Present On Admission. Labs: (12/18) BUN 29 H, Creatinine 0.55 L, glucose 137 H (12/15) Na 128 L, BUN 74 H, Creatinine 1.96 H, Glucose 183 H, Ca 11.4 H Meds: insulin, sodium bicarb, megace, zinc sulfate, MVi w/minerals, pepcid, vitamin C, dextrose Ht: 61in Wt: 94.03lb; 96lb BMI: 17.8kg/m2 IBW: 105lb Malnutrition Evaluation (12/15/2018) The patient meets criteria for unspecified SEVERE protein-calorie malnutrition. Energy intake: <75% of estimated energy requirements for >3 months Weight loss: >10% in 6 months (Chronic) Fat loss: Severe orbital with dark dry creek and hollow, apparent ribs, protrusion of clavicle Muscle loss: Severe temporal depression, squaring shoulder, protruding clavicle, thin calves Supporting Evidence: Fluid accumulation: unable to evaluate Functional Status: no changes Nutrition Prescription (Diet Order): regular diet Estimated Nutritional Needs: Calories: 1290 1505kcal (30-35kcal/kg/d) Weight used : CBW Protein: 65 108g (1.5-2.5g/kg/d) Weight used: CBW Diet Adequacy: Not meeting calorie needs, Not meeting protein needs Diet Education Needs Assessment: Diet education indicated, but patient not appropriate for education at this time. Nutrition Care Level: high Nutrition Diagnosis: Severe cancer related malnutrition related to inadequate oral intake as evidenced by <75% of estimated energy requirements for >3 months, >10% weight loss in 6 months, and severe muscle/ fat loss upon NFPA. Goal: Patient will meet 75-100% of estimated needs by follow up Progress: Progressing Interventions: General healthful diet, Commercial beverage, Commercial food, Prescription medications, Multivitamin/mineral supplement therapy, Collaboration with other providers Monitoring/Evaluation: Total energy intake, Total protein intake, Prescription medication, Modified diet, Liquid supplement, Weight change Signed: Kelly Saavedra MS, RD, LD
--- NOTE | 2018-12-18 13:32 | NUR ---
Patient placed on tele box for transport to CT.
--- NOTE | 2018-12-18 14:33 | Diagnostic Imaging Report ---
EXAM: CT Abdomen and Pelvis with contrast INDICATION: Follow-up cancer, evaluate for abscess. COMPARISON: CT Abdomen/Pelvis with contrast 10/25/2018. TECHNIQUE: Abdomen and pelvis were scanned utilizing a multidetector helical scanner from the lung base to the pubic symphysis after administration of IV contrast. Coronal and sagittal reformations were obtained. Routine protocol was performed. Scan was performed when during portal venous phase. IV CONTRAST: 100 cc of Isovue 370 ORAL CONTRAST: Water COMPLICATIONS: None RADIATION DOSE: Total DLP: 362.9 mGy*cm Dose modulation, iterative reconstruction, and/or weight based adjustment of the mA/kV was utilized to reduce the radiation dose to as low as reasonably achievable. FINDINGS: Exam is limited due to patient positioning and inability to lie supine on the table. LINES and TUBES: None. LOWER THORAX: Unremarkable HEPATOBILIARY: Hepatic steatosis. No evidence of focal lesion. No biliary ductal dilation. GALLBLADDER: No radio-opaque stones or sludge. No wall thickening. SPLEEN: No splenomegaly. PANCREAS: No focal masses or ductal dilatation. ADRENALS: Interval increase in size of a heterogeneous right adrenal nodule, now measuring up to 3.2 x 1.9 cm, previously 2.4 x 1.5 cm. KIDNEYS/URETERS: There are bilateral internal ureteral stents. Unchanged mild to moderate right hydronephrosis. Interval increase in left-sided hydronephrosis, now moderate. Bilateral hydroureter with increasing periureteral stranding. GI TRACT: Left-sided ileostomy with parastomal hernia, as before. No evidence of bowel obstruction. Uterine mass involves the sigmoid colon and the rectum with associated wall thickening. Appendix is normal. There is scattered colonic diverticulosis without CT evidence of diverticulitis. PELVIC ORGANS/BLADDER: Again noted is a heterogeneously enhancing, lobulated likely uterine mass, measuring up to 12 x 12.7 x 14.7 cm. The mass demonstrates central hypodensity, as before. The mass involves the bladder, sigmoid colon, rectum, and distal ureters as before. No evidence of fistula to adjacent bowel. The ovaries are not visualized. LYMPH NODES: Enlarged left external iliac lymph node, measuring up to 1.1 cm on series 300, image 111, unchanged. Interval increase in size of an aortocaval lymph node, measuring up to 1.1 cm short axis (image 72), previously 0.7 cm. Interval increase in size of bilateral external lymph nodes measuring up to 1.1 cm, previously 0.9 cm bilaterally. Unchanged left external iliac lymph node, measuring up to 1.1 cm short axis. VESSELS: Unremarkable. PERITONEUM / RETROPERITONEUM: No free air or fluid. BONES AND SOFT TISSUES: No acute osseous abnormality. Again noted is a sacral decubitus ulcer, extending to the coccygeal tip. Previously noted tiny left posterior gluteal fat soft tissue fluid collection is not visualized. Diffuse anasarca. IMPRESSION: Similar appearance of large uterine mass which is likely centrally necrotic and invades the bladder, distal ureters, sigmoid colon and rectum. Interval increase in size of right adrenal metastasis as well as the retroperitoneal and iliac lymphadenopathy. Bilateral hydronephrosis, slightly increased on the left, with internal ureteral stents in appropriate position. Sacral decubitus ulcer with extension to the coccygeal tip, as before. Previously noted tiny fluid collection along the left posterior gluteal fat soft tissues is no longer visualized. Signed by: Dr. Dai Mcgee MD on 12/18/2018 2:30 PM
[2018-12-18] MEDS: VANCOMYCIN 750MG/NS 150ML IVPB 150 ML IV SCH (14:40)
--- NOTE | 2018-12-18 15:06 | Progress Note ---
DATE: 12/18/2018 Medicine Progress Note SUBJECTIVE: The patient is still not eating much. She endorses that she does eat, but . I have discussed with her about possible hospice and she is contemplating back and forth for the last several days. She finally agreed to have a hospice company come talk to her. The patient was complaining of pain, which I consulted Pain Management. PHYSICAL EXAMINATION: VITAL SIGNS: Temperature is 98, pulse 112, respiratory rate is 18, blood pressure 108/75, pulse ox 100% on room air. GENERAL: No acute distress. Alert and oriented x3. Cooperative on examination. HEENT: Head is normocephalic and atraumatic. Eyes, pupils are equal, round, and reactive to light bilaterally. Extraocular movements are intact bilaterally. Throat, no evidence of erythema or exudates in the posterior pharynx. Has poor dentition. NECK: Supple. Good range of motion. PULMONARY: Clear to auscultation bilaterally. No wheezing, no rales, no rhonchi, no crackles appreciated. CARDIOVASCULAR: Positive S1, S2. No murmurs, rubs, or gallops. ABDOMEN: Soft, nondistended, nontender to palpation. Bowel sounds present. MUSCULOSKELETAL: Strength is 5/5 throughout. No evidence of any muscle deficits on examination. No weakness appreciated. NEUROLOGIC: Cranial nerves II through XII grossly intact. No evidence of any neurological deficits on exam. SKIN: Intact. Warm to touch. Good cap refill. PSYCHIATRIC: Normal affect and mood. EXTREMITIES: No edema. Good range of motion throughout. LABORATORY DATA: Labs show white count 15.4, hemoglobin 8.1, hematocrit is 25, platelets of 473. Chemistry; sodium 137, potassium 4.4, chloride 110, bicarb 23, anion gap of 11.4, BUN 29, creatinine 0.55, glucose is 137, calcium is 10. MICROBIOLOGY: Wound cultures, no growth. Blood cultures, no growth. Urine cultures, no growth. IMAGING STUDIES: None. IMPRESSION: 1. Sepsis secondary to urinary tract infection with leukocytosis and lactic acidosis, improving. 2. Stage IV sacral wound. 3. Severe protein-calorie malnutrition. 4. Stage IV uterine cancer with metastasis. 5. Generalized weakness and medical debilitation. 6. Chronic bilateral hydronephrosis with ureteral stents. 7. Metabolic acidosis with hyperkalemia, improving. 8. Acute kidney injury. 9. Hypercalcemia of malignancy. 10. Anemia of chronic disease, status post blood transfusion. PLAN: At this time, all cultures have been collected and found to be negative. She is on IV antibiotics and ID is following very closely. She is getting daily wound care by the Wound Care Service and she is on IV antibiotics. The patient is not eating much and I discussed with her the importance of eating as well as supplemental shakes. She endorses that and promises me to eat much more, if not we must consider some other form of nutrition. She did talk to me about possible hospice. She would like to talk to some of the companies, which I already talked to the nurse. environmental department manager will notify so she can make an informed decision. Work with PT and OT. Urology, I am not sure about their plan of care in terms if they are going to remove the ureteral stents here some time this week or not. I do not find a note or understand what is the next step. Her renal function has improved tremendously. Calcium is much better and her hemoglobin is stable. Continue with PT and OT. We did discontinue the Lovenox due to Neurology recommendations. Otherwise, pain management due to her chronic pain issues indications and. MD CHASE Saravia/TALHA /[id number]
[2018-12-18 16:04] VITALS: BP 137/90
[2018-12-18] MEDS ORDERED: IOPAMIDOL 370 MG/ML 200 ML INFUS..BTL INJ ONE (16:28)
[2018-12-18] MEDS ORDERED: SODIUM CHLORIDE 0.9% 50ML 50 ML ONE (16:28)
--- NOTE | 2018-12-18 17:41 | NUR ---
WOUND CARE CONSULTATION: INITIAL EVALUATION Patient admitted from [facility] to ER for S/P Fall when going to restroom, Low Potassium, elevated WBC's HX: HTN, DM, Uterine Cancer, Kidney Stones, Bowel Resection with Colostomy, Lithotripsy. Pelvis X-Ray, CXR, Lumbar CT, Cervical Spine CT, Brain CT- Normal findings, no fractures Wound Culture: No Growth Dietitian on case and managing nutritional needs. PATIENT VISIT: - Pleasant 58 year-old female. AAOX4. Good historian. Cachexic. - Patient was previously at [facility] in [place]. - Sacral area presents with full thickness ulceration, Oval, Irregular wound base with irregular granulation, Beefy Red. Wound Measures 3.8x2.8x0.4cm. 100% Granular. Improving. Dick Score 13 Moderate PUP Active Rotational LISA Mattress in place. Patient able to turn self and avoids laying in bed over sacral wound. Patient on IV ABX = Ceftriaxone. IMPRESSION: Sacral - Stage IV Pressure Ulcer - Present On Admission. ( HEALING) RECOMMENDATION: Continue Current Treatment Plan 1. Sacral- Stage IV- Pressure Ulcer - Present On Admission - Cleanse wound with NS and 4x4 gauze then apply NPWT -120mmHg Continuous. Change Three Times A Week. 2. Encourage patient to Turn and Reposition Patient Every 2 Hours. 3. HOB < or = to 30 Degrees as tolerated Thank you for consulting with Wound Care. Addendum: 12/18/18 at 1746 by Manoj Moss RN Amended: Links added.
--- NOTE | 2018-12-18 19:00 | NUR ---
Walking rounds and report given. Call cerda within reach.
[2018-12-18 19:51] VITALS: BP 118/80
[2018-12-18 20:16] VITALS: BP 118/80
[2018-12-18] MEDS ORDERED: HYDROMORPHONE 2MG/ML 2 MG/ML ML IV ONE ×2 (21:00→21:15)
[2018-12-18] MEDS: MELATONIN 5 MG TABLET PO SCH (21:03)
--- NOTE | 2018-12-18 21:05 | NUR ---
Spoke with Yasmin Espinal via phone regarding patient pain. Patient c/o pain 04/19 and moaning. Requesting pain medication. PRN not due until 2229. New orders received.
[2018-12-18] MEDS: FENTANYL 50 MCG/HR PATCH TOP SCH (21:14)
--- NOTE | 2018-12-18 22:00 | NUR ---
Patient requesting break from SCD. Education provided on importance to prevent DVT ( blood clots in legs) Will continue to monitor.
[2018-12-19] VITALS (8 sets, daily range): BP systolic 102–119; BP diastolic 64–90
--- NOTE | 2018-12-19 01:00 | NUR ---
Patient found standing on side of bed. Redirected patient back to bed easily. Patient stated that " I was going to bathroom." Education reinforced to call for assistance. Patient verbalized understanding. Will continue to monitor closely.
--- NOTE | 2018-12-19 02:00 | NUR ---
Attempted to place SCD on patient after bed bath patient refusing at this time. Education reinforced on importance. Verbalized understanding.
--- NOTE | 2018-12-19 02:00 | NUR ---
Appliance and bag changed to colostomy with standby assistance, patient tolerated well.
[2018-12-19] MEDS: HYDROMORPHONE 2MG/ML 2 MG/ML ML IV PRN ×4 (02:15→22:25)
[2018-12-19 05:45] LABS: BASOPHILS # (AUTO) 0.1 (0.0-0.1); BASOPHILS % 0.3 % (0.0-1.0); EOSINOPHILS # (AUTO) 0.4 (0.0-0.4); EOSINOPHILS % 2.2 % (0.0-6.0); HEMATOCRIT 24.4 % (34.2-44.1); HEMOGLOBIN 7.8 g/dL (12.0-16.0); LYMPHOCYTES # (AUTO) 2.2 (1.0-3.2); LYMPHOCYTES % 12.7 % (18.0-39.1); MEAN CORPUSCULAR HEMOGLOBIN 25.1 pg (28-32); MEAN CORPUSCULAR VOLUME 78.5 fL (81-99); MONOCYTES # (AUTO) 1.3 (0.2-0.8); MONOCYTES % 7.6 % (4.4-11.3); NEUTROPHILS % 75.7 % (38.7-80.0); PLATELET COUNT 497 x10e3/uL (140-360); RED BLOOD COUNT 3.11 x10e6/uL (3.6-5.1); RED CELL DISTRIBUTION WIDTH 17.4 % (11.7-14.4)
[2018-12-19] MEDS: MEROPENEM 500MG/ NS 50ML 50 ML IV SCH ×3 (05:46→21:30)
--- NOTE | 2018-12-19 06:00 | NUR ---
In bed resting, no issues or concerns, call light within reach. Will continue to monitor.
[2018-12-19 06:03] LABS: ANION GAP 8.6 mmol/L (8-16); BLOOD UREA NITROGEN 42 mg/dL (7-26); BUN/CREATININE RATIO 56 (6-25); CALCIUM 9.9 mg/dL (8.4-10.2); CARBON DIOXIDE 23 mmol/L (22-29); CHLORIDE 108 mmol/L (98-107); CREATININE, SERUM 0.75 mg/dL (0.57-1.11); EST GLOMERULAR FILTRATION RATE > 60 ML/MIN (60-); GLUCOSE 102 mg/dL (74-118); POTASSIUM 4.6 mmol/L (3.5-5.1); SODIUM 135 mmol/L (136-145)
[2018-12-19] MEDS: CYCLOBENZAPRINE HCL 10 MG TAB PO SCH ×3 (06:04→21:30)
[2018-12-19] MEDS: GABAPENTIN 300 MG CAP PO SCH ×3 (06:04→21:30)
[2018-12-19] MEDS: INSULIN REGULAR, HUMAN 100 UNIT/1 ML 3ML VIAL SQ SCH ×3 (07:30→21:30)
[2018-12-19] MEDS: MIDODRINE HCL 5 MG TABLET PO SCH ×3 (08:55→16:52)
[2018-12-19] MEDS: MEGACE 400MG/ 10ML CUP PO SCH (08:57)
[2018-12-19] MEDS: MULTIVITAMINS/MINERALS TAB PO SCH (08:57)
[2018-12-19] MEDS: ASCORBIC ACID 500 MG TAB PO SCH (08:57)
[2018-12-19] MEDS: SODIUM BICARBONATE 650 MG TAB PO SCH ×2 (08:57→16:52)
[2018-12-19] MEDS: VITAMIN E 400 UNIT CAP PO SCH (08:57)
[2018-12-19] MEDS: FAMOTIDINE 20 MG TAB PO SCH ×2 (08:57→16:52)
[2018-12-19] MEDS: ZINC SULFATE 220 MG CAP PO SCH (08:57)
--- NOTE | 2018-12-19 10:16 | NUR ---
Pt sleeping soundly and no visitors present. Business Specialist left a card to indicate a missed visit and information on how to contact the cushion former, if needed. SHAAN CISSE Business Specialist Spiritual Care Department O: [phone] Pager: [phone] ([phone] number calling from)
[2018-12-19] MEDS: HYDROCODONE/APAP 10MG-325MG TAB PO PRN (11:30)
--- NOTE | 2018-12-19 12:00 | NUR ---
MET W DR. MARTINO REGARDING DC PLAN. INFORMED THE PT DOES NOT WANT TO GO TO AN LTAC. STATED SHE ONLY WANTED TO MAKE HER GYNE APPT AT [facility]. DR. MARTINO STATES HE IS WILLING TO DC THE PT ONCE UROLOGY F/U. PT WAS TOLD UROLOGY WOUND CHANGE HER STENTS. PT DISCUSSED IN MDR. BEDSIDE RNRADHA WILL PLACE A CALL TO UROLOGY.
[2018-12-19] MEDS: METOPROLOL TARTRATE 25 MG TAB PO SCH ×2 (12:30→21:30)
--- NOTE | 2018-12-19 14:31 | Progress Note ---
DATE: 12/19/2018 Medicine Progress Note SUBJECTIVE: The patient seems to be very depressed today. She was crying on examination today. She said she lost her son last month after someone killed her son. I will go ahead and get psychiatry to come and evaluate her. She is not ready for any Hospice Services. I discussed this with her very thoroughly. I told her that it is her decision to make in terms of hospice and if she wants to continue treating that is not a problem either. We will continue with same plan of care while she is here. OBJECTIVE: VITAL SIGNS: Temperature is 98.7, pulse 118, respiratory rate is 16, blood pressure 117/90, and pulse ox 98% on room air. GENERAL: Not in acute distress. Alert and oriented x3. Cooperative on examination. HEENT: Head is normocephalic and atraumatic. Eyes, pupils are equal, round, and reactive to light bilaterally. Extraocular movements are intact bilaterally. Throat, no evidence of erythema or exudates in the posterior pharynx. Has poor dentition. NECK: Supple. Good range of motion throughout. PULMONARY: Clear to auscultation bilaterally. No wheezing, no rales, no rhonchi appreciated. CARDIOVASCULAR: Positive S1 and S2. No murmurs, rubs, or gallops. ABDOMEN: Soft, nondistended, and nontender to palpation. Bowel sounds present. MUSCULOSKELETAL: Strength is 5/5 throughout. No evidence of muscle deficits on examination. No weakness appreciated. NEUROLOGICAL: Cranial nerves II through XII grossly intact. No evidence of any neurological deficits on exam. SKIN: Intact. Warm to touch. Good cap refill. PSYCHIATRIC: Normal affect and mood. EXTREMITIES: No edema. Good range of motion throughout. LABORATORY FINDINGS: Show white count 17, hemoglobin 7.8, hematocrit is 24, and platelets of 497. Sodium 135, potassium 4.6, chloride 108, bicarb 23, anion gap of 8.6, BUN 42, creatinine 0.75, and calcium is 9.9. MICROBIOLOGY: Wound cultures negative. Blood cultures negative. Urine culture negative. IMAGING STUDIES: CT abdomen and pelvis was performed, showed similar appearance of the large uterine mass, which is likely centrally necrotic and invaded the bladder, distal ureter, sigmoid colon, and rectum. Interval increase in the right adrenal mass retroperitoneal and iliac lymphadenopathy. Bilateral hydronephrosis is slightly increased on the left with internal ureteral stents in position. Sacral decubitus ulcer with . IMPRESSION: 1. Sepsis secondary to urinary tract infection with leukocytosis and lactic acidosis, improving. 2. Stage IV sacral wound. 3. Severe protein-calorie malnutrition. 4. Stage IV uterine cancer with metastasis. 5. Generalized weakness with medical debilitation. 6. Chronic bilateral hydronephrosis with ureteral stents with underlying hematuria. 7. Metabolic acidosis with hyperkalemia, improved. 8. Acute kidney injury. 9. Hypercalcemia of malignancy. 10. Anemia of chronic disease as well as blood transfusion. 11. Concern for underlying depression. 12. Sinus tachycardia. PLAN: At this time, all cultures are negative. ID is following very closely. The white count is likely stress-induced and also from underlying malignancy. Continue with supplemental shakes, increase diet, and ambulation. Local wound care. Await Urology recommendations about the ureter stents about either removal or exchange. Get a.m. labs. I had a long discussion with the patient at bedside. She seems to be very depressed due to her son's recent last week. I will go ahead and consult Psychiatry, Dr. Mas to come and evaluate her. She is not interested in any Hospice Services and she is interested in only being transferred to like a chcf or an LTAC if possible. At this time, she is not ready to be on Hospice Services. I discussed this with Case Management. At this time, we will continue with same plan of care with no changes and follow up with the recommendations from the consultants. We will start on metoprolol 25 mg p.o. b.i.d. MD CHASE Saravia/TALHA /[id number]
--- NOTE | 2018-12-19 15:49 | NUR ---
ATTEMPTED TO MEET W THE PT, BUT SHE WAS ASLEEP. GAUTAM GARCIA CONFIRMED HE HAD SPOKE W UROLOGY AND THEY WILL CHANGE THE STENTS ON TOMORROW. WILL CONT TO FOLLOW.
[2018-12-19] MEDS: VANCOMYCIN 750MG/NS 150ML IVPB 150 ML IV SCH (16:51)
[2018-12-19] MEDS: DEXTROSE 5%/0.9% SOD CHL 1,000 ML IV SCH ×2 (17:16→21:15)
[2018-12-19] MEDS: MELATONIN 5 MG TABLET PO SCH (21:30)
[2018-12-20] VITALS (10 sets, daily range): BP systolic 94–126; BP diastolic 65–72
--- NOTE | 2018-12-20 01:18 | Consultation ---
DATE OF CONSULTATION: 12/19/2018 Psychiatric Consultation REASON FOR CONSULTATION: To evaluate patient's mood and depression. HISTORY OF PRESENT ILLNESS: The patient is a 58-year-old female admitted to the hospital for renal insufficiency, anemia, hyperkalemia . As per the medical record, the patient has history of uterine cancer, sacral wound, UTI, calorie malnutrition, hydronephrosis, hyperkalemia, and acute kidney injury. Upon evaluation today, the patient is found to be in the room with her friend. She agrees for her friend to be in the room during the assessment. The patient claims that she has been feeling more depressed lately due to her health and also the fact that her son was murdered on the 30 of November this year. She denies any anxiety. She feels hopeless and helpless, but denies passive wish or suicidal ideation. She denies any hallucination. She denies any problem with sleep or appetite. She is calm at this time. She claims that she is having a lot of pain issues due to her health and due to the bone. Had a long and extensive discussion with the patient and her friend regarding patient's mood and the reason for hospitalization at this time. PAST PSYCHIATRIC HISTORY: The patient denies past psychiatric history. She denies past suicide attempts. She denies any drug use. She reports social drinker. PAST FAMILY HISTORY: Her distant cousin has history of schizophrenia. SOCIAL HISTORY: The patient was living with her son before hospitalization, but her son . MENTAL STATUS EXAM: The patient is an elderly female, . Her mood is depressed. Affect is congruent with mood. Thought process is concrete. Psychomotor state is passive. She denies any suicidal or homicidal ideation. She denies any hallucination. Insight and judgment are fair. Memory appears to be grossly intact. CURRENT MEDICATIONS: 1. Dextrose/sodium. 2. Insulin. 3. Sodium bicarbonate. 4. Neurontin 300 mg p.o. q.8 hours schedule. 5. Famotidine. 6. Flexeril. 7. Vancomycin. 8. Melatonin. 9. Metoprolol. 10. [place] p.r.n. 11. Megace. 12. Zinc. 13. Vitamin E. 14. Folic acid. 15. Dilaudid. 16. Fentanyl. 17. Ondansetron. 18. Acetaminophen. CURRENT LABS: WBC is 17.10, RBC 3.11, hemoglobin 7.8, hematocrit 24.4 and platelets of 497. Sodium is 135, potassium 4.6, chloride is 108, BUN 42, creatinine is 0.75. ASSESSMENT: Adjustment disorder with mixed mood. PLAN: 1. Add Effexor XR 37.5 mg p.o. daily. 2. Continue melatonin HS. 3. Monitor for mood. 4. Supportive therapy. 5. Continue Neurontin 300 mg p.o. q.8 hours schedule. Thank you for this consultation. Dictated by Marilou Wells PA-C Dolly Mas MD QTV/MODL /[id number]
[2018-12-20 05:09] LABS: BASOPHILS # (AUTO) 0.1 (0.0-0.1); BASOPHILS % 0.3 % (0.0-1.0); EOSINOPHILS # (AUTO) 0.4 (0.0-0.4); EOSINOPHILS % 2.8 % (0.0-6.0); HEMATOCRIT 23.1 % (34.2-44.1); HEMOGLOBIN 7.1 g/dL (12.0-16.0); LYMPHOCYTES # (AUTO) 2.2 (1.0-3.2); LYMPHOCYTES % 14.3 % (18.0-39.1); MEAN CORPUSCULAR HEMOGLOBIN 24.6 pg (28-32); MEAN CORPUSCULAR HGB CONC 30.7 g/dL (31-35); MEAN CORPUSCULAR VOLUME 79.9 fL (81-99); MONOCYTES # (AUTO) 1.4 (0.2-0.8); MONOCYTES % 9.2 % (4.4-11.3); NEUTROPHILS % 72.2 % (38.7-80.0); PLATELET COUNT 459 x10e3/uL (140-360); RED BLOOD COUNT 2.89 x10e6/uL (3.6-5.1); RED CELL DISTRIBUTION WIDTH 17.5 % (11.7-14.4)
[2018-12-20] MEDS: CYCLOBENZAPRINE HCL 10 MG TAB PO SCH ×3 (05:09→22:27)
[2018-12-20] MEDS: MEROPENEM 500MG/ NS 50ML 50 ML IV SCH ×2 (05:09→14:26)
[2018-12-20] MEDS: GABAPENTIN 300 MG CAP PO SCH ×3 (05:09→22:28)
[2018-12-20 05:30] LABS: ANION GAP 7.7 mmol/L (8-16); BLOOD UREA NITROGEN 62 mg/dL (7-26); BUN/CREATININE RATIO 74 (6-25); CALCIUM 9.7 mg/dL (8.4-10.2); CARBON DIOXIDE 24 mmol/L (22-29); CHLORIDE 108 mmol/L (98-107); CREATININE, SERUM 0.84 mg/dL (0.57-1.11); EST GLOMERULAR FILTRATION RATE > 60 ML/MIN (60-); GLUCOSE 114 mg/dL (74-118); POTASSIUM 4.7 mmol/L (3.5-5.1); SODIUM 135 mmol/L (136-145)
--- NOTE | 2018-12-20 06:00 | NUR ---
Patient resting in bed listening to music, no issues or concerns. Call light within reach. Will continue to monitor.
[2018-12-20] MEDS: DEXTROSE 5%/0.9% SOD CHL 1,000 ML IV SCH (06:41)
[2018-12-20] MEDS: INSULIN REGULAR, HUMAN 100 UNIT/1 ML 3ML VIAL SQ SCH ×5 (07:21→21:50)
--- NOTE | 2018-12-20 07:43 | NUR ---
notified dr hoang of temp and hemoglobin
[2018-12-20] MEDS: METOPROLOL TARTRATE 25 MG TAB PO SCH ×2 (08:00→21:30)
[2018-12-20] MEDS: MIDODRINE HCL 5 MG TABLET PO SCH ×3 (08:00→17:28)
[2018-12-20] MEDS: HYDROMORPHONE 2MG/ML 2 MG/ML ML IV PRN ×3 (08:29→22:00)
[2018-12-20] MEDS ORDERED: NALOXONE HCL INJ 0.4 MG/ML AMP IV PRN (10:15)
[2018-12-20] MEDS ORDERED: IOPAMIDOL 610MG/1ML 300 MG/ML VIAL IV ONE (10:46)
[2018-12-20] MEDS: VANCOMYCIN 750MG/NS 150ML IVPB 150 ML IV SCH (14:00)
[2018-12-20] MEDS: FAMOTIDINE 20 MG TAB PO SCH ×2 (14:24→17:28)
[2018-12-20] MEDS: SODIUM BICARBONATE 650 MG TAB PO SCH ×2 (14:24→17:28)
[2018-12-20] MEDS: VITAMIN E 400 UNIT CAP PO SCH (14:25)
[2018-12-20] MEDS: VENLAFAXINE HCL 37.5MG XR CAP PO SCH (14:25)
[2018-12-20] MEDS: ASCORBIC ACID 500 MG TAB PO SCH (14:25)
[2018-12-20] MEDS: MULTIVITAMINS/MINERALS TAB PO SCH (14:25)
[2018-12-20] MEDS: ZINC SULFATE 220 MG CAP PO SCH (14:25)
--- NOTE | 2018-12-20 14:26 | NUR ---
WOUND CARE CONSULTATION: FOLLOW UP [facility] for S/P Fall when going to restroom, Low Potassium, elevated WBC's HX: HTN, DM, Uterine Cancer, Kidney Stones, Bowel Resection with Colostomy, Lithotripsy. Pelvis X-Ray, CXR, Lumbar CT, Cervical Spine CT, Brain CT- Normal findings, no fractures Wound Culture: No Growth Dietitian on case and managing nutritional needs. LABS WBC15.24 HGB7.1 HCT23.1 [id number] ALB2.1 PATIENT VISIT: - Pleasant 58 year-old female. AAOX4. Good historian. Cachexic. - Patient was previously at [facility] in [place]. Patient eager to return to [place]. - Sacral area presents with full thickness ulceration, Oval, Irregular wound base with irregular granulation, Beefy Red. Wound Measures 3.8x2.8x0.4cm. 100% Granular. Improving. Dick Score 13 Moderate PUP Active Rotational LISA Mattress in place. Patient able to turn self and avoids laying in bed over sacral wound. Patient on IV ABX = Ceftriaxone. IMPRESSION: Sacral - Stage IV Pressure Ulcer - Present On Admission. ( continuing to heal slowly) RECOMMENDATION: Continue Current Treatment Plan 1. Sacral- Stage IV- Pressure Ulcer - Present On Admission - Cleanse wound with NS and 4x4 gauze then apply NPWT -120mmHg Continuous. Change Three Times A Week. 2. Encourage patient to Turn and Reposition Patient Every 2 Hours. 3. HOB < or = to 30 Degrees as tolerated Thank you for consulting with Wound Care. Addendum: 12/20/18 at 1430 by Manoj Moss RN Amended: Links added.
[2018-12-20] MEDS: MEGACE 400MG/ 10ML CUP PO SCH (14:30)
[2018-12-20] MEDS ORDERED: FENTANYL CITRATE/PF 100MCG/2 ML INJ ONE (16:51)
--- NOTE | 2018-12-20 17:26 | Progress Note ---
DATE: 12/20/2018 Medicine Progress Note SUBJECTIVE: The patient is doing well today with no complaints. She did have a urological procedure performed today. She had her right ureteral stent removed and her left stent was exchanged. She is currently doing well postprocedure with no complaints. OBJECTIVE: VITAL SIGNS: Temperature is 97.9, pulse 88, respiratory rate is 20, blood pressure 122/72, and pulse ox 100% on room air. GENERAL: Not in acute distress. Alert and oriented x3. Cooperative on examination. HEENT: Head is normocephalic and atraumatic. Eyes; pupils are equal, round, and reactive to light bilaterally. Extraocular movements are intact bilaterally. Throat, no evidence of erythema or exudates in the posterior pharynx. Has poor dentition. NECK: Supple. Good range of motion throughout. PULMONARY: Clear to auscultation bilaterally. No wheezing, no rales, no rhonchi, no crackles appreciated. CARDIOVASCULAR: Positive S1 and S2. No murmurs, rubs, or gallops appreciated. ABDOMEN: Soft and nontender to palpation. Bowel sounds present. MUSCULOSKELETAL: Strength is 5/5 throughout. No evidence of any muscle deficits on examination. No weakness appreciated. NEUROLOGIC: Cranial nerves II through XII are grossly intact. No evidence of any neurological deficits on exam. SKIN: Intact. Warm to touch. Good cap refill. PSYCHIATRIC: Normal affect and mood. EXTREMITIES: No edema. Good range of motion throughout. LABORATORY FINDINGS: Show white count 15.2, hemoglobin 7.1, hematocrit is 23, and platelets of 459. Chemistry; sodium 135, potassium 4.7, chloride 108, bicarb 24, anion gap of 7.7, BUN 62, creatinine is 0.84, and calcium is 9.7. IMPRESSION: 1. Sepsis secondary to urinary tract infection with leukocytosis and lactic acidosis, improving. 2. Stage IV sacral wound. 3. Severe protein-calorie malnutrition. 4. Stage IV uterine cancer with metastasis. 5. Generalized weakness and medical debilitation. 6. Chronic bilateral hydronephrosis with ureteral stents with hematuria, status post on 12/20/2018, bilateral ureteral stent removal with left ureteral stent exchange and placement. 7. Metabolic acidosis with hyperkalemia. 8. Acute kidney injury. 9. Hypercalcemia of malignancy. 10. Anemia of chronic disease as well as blood transfusions. 11. Concern for underlying depression. 12. Sinus tachycardia. 13. Adjustment disorder and mixed mood. PLAN: At this time, all cultures have been found to be negative. White count actually improved. Continue with IV antibiotics for now. Otherwise, the patient is doing very good. Our plan is to transfer back to senior care facility. She refuses any kind of hospice at this time. Psychiatry was consulted and she was started on Effexor for adjustment disorder and mixed mood. Otherwise, she seems to be very stable from a medical standpoint at this time. Once she has been accepted, we will transfer to senior care. MD CHASE Saravia/TALHA /[id number]
[2018-12-20] MEDS ORDERED: PROPOFOL IV EMULSION 10 MG/ML 20 ML VIAL ONE (19:15)
[2018-12-20] MEDS ORDERED: SEVOFLURANE INHAL SOLN 250 ML PEN BTL ONE (19:15)
[2018-12-20] MEDS ORDERED: LIDOCAINE HCL 2% LOCAL INJ 5 ML SDV VIAL INJ ONE (19:15)
[2018-12-20] MEDS ORDERED: DEXAMETHASONE SOD PHOS INJ 4 MG/ML VIAL ONE (19:15)
[2018-12-20] MEDS ORDERED: ONDANSETRON HCL INJ 2MG/ML 2ML 2 MG/ML VIAL ONE (19:15)
[2018-12-20] MEDS ORDERED: SODIUM CHLORIDE 0.9% 250ML 250 ML IV ONE (20:15)
--- NOTE | 2018-12-20 21:12 | NUR ---
RECEIVED PT IN BED AOX3 .RESPIRATIONS ARE EVEN AND UNLABORED .PT HAS PURWICK RT PICC NS AT D5NS @75 CC/HR .DR LAU HAS GIVEN THE ORDER TO GIVE 1 UNIT OF BLOOD ,FAMILY AT THE BEDSIDE .CALL LIGHT WITH IN REACH
[2018-12-20] MEDS: MELATONIN 5 MG TABLET PO SCH (21:59)
--- NOTE | 2018-12-20 22:13 | NUR ---
CHANGED THE ILEOSTOMY AND C/O PAIN GIVEN ORDERED PAIN MEDICATION .
[2018-12-21] VITALS (8 sets, daily range): BP systolic 109–131; BP diastolic 61–102
[2018-12-21] MEDS ORDERED: SODIUM CHLORIDE 0.9% 250ML 250 ML ONE (00:07)
[2018-12-21] MEDS: DEXTROSE 5%/0.9% SOD CHL 1,000 ML IV SCH ×2 (00:57→13:05)
--- NOTE | 2018-12-21 01:15 | NUR ---
GIVEN REPORT TO ANOTHER NURSE.
--- NOTE | 2018-12-21 03:21 | NUR ---
blood transfusion completed, vitals checked, patient is awake alert oriented, denied any discomfort.
[2018-12-21] MEDS: HYDROMORPHONE 2MG/ML 2 MG/ML ML IV PRN ×4 (03:49→19:54)
--- NOTE | 2018-12-21 03:49 | NUR ---
patient complained of pain, Dilaudid PRN given as she requested, emptied Ileostomy bag, 100 cc stool collected, anisha care done diaper changed. will continue to monitor.
[2018-12-21] MEDS: CYCLOBENZAPRINE HCL 10 MG TAB PO SCH ×3 (06:16→20:58)
[2018-12-21] MEDS: GABAPENTIN 300 MG CAP PO SCH ×3 (06:16→20:58)
[2018-12-21 06:39] LABS: BASOPHILS % 0.3 % (0.0-1.0); EOSINOPHILS # (AUTO) 0.2 (0.0-0.4); EOSINOPHILS % 1.2 % (0.0-6.0); HEMATOCRIT 25.3 % (34.2-44.1); LYMPHOCYTES # (AUTO) 2.4 (1.0-3.2); LYMPHOCYTES % 15.3 % (18.0-39.1); MEAN CORPUSCULAR HEMOGLOBIN 25.2 pg (28-32); MEAN CORPUSCULAR HGB CONC 31.6 g/dL (31-35); MEAN CORPUSCULAR VOLUME 79.6 fL (81-99); MONOCYTES # (AUTO) 1.2 (0.2-0.8); MONOCYTES % 7.7 % (4.4-11.3); NEUTROPHILS # (AUTO) 11.7 (2.1-6.9); NEUTROPHILS % 74.5 % (38.7-80.0); PLATELET COUNT 432 x10e3/uL (140-360); RED BLOOD COUNT 3.18 x10e6/uL (3.6-5.1); RED CELL DISTRIBUTION WIDTH 16.7 % (11.7-14.4)
[2018-12-21] MEDS: MIDODRINE HCL 5 MG TABLET PO SCH ×3 (07:21→18:07)
[2018-12-21] MEDS: HYDROCODONE/APAP 10MG-325MG TAB PO PRN (07:22)
[2018-12-21] MEDS: ASCORBIC ACID 500 MG TAB PO SCH (08:50)
[2018-12-21] MEDS: MULTIVITAMINS/MINERALS TAB PO SCH (08:50)
[2018-12-21] MEDS: FAMOTIDINE 20 MG TAB PO SCH ×2 (08:50→18:07)
[2018-12-21] MEDS: VENLAFAXINE HCL 37.5MG XR CAP PO SCH (08:50)
[2018-12-21] MEDS: VITAMIN E 400 UNIT CAP PO SCH (08:50)
[2018-12-21] MEDS: ZINC SULFATE 220 MG CAP PO SCH (08:51)
[2018-12-21] MEDS: SODIUM BICARBONATE 650 MG TAB PO SCH ×2 (08:51→18:07)
[2018-12-21] MEDS: INSULIN REGULAR, HUMAN 100 UNIT/1 ML 3ML VIAL SQ SCH ×4 (09:02→20:58)
[2018-12-21] MEDS: METOPROLOL TARTRATE 25 MG TAB PO SCH ×2 (09:04→20:57)
[2018-12-21] MEDS: MEGACE 400MG/ 10ML CUP PO SCH (13:05)
[2018-12-21] MEDS: OXYCODONE/ACETAMINOPHEN 5-325 1 EACH TABLET PO PRN ×2 (13:06→23:10)
--- NOTE | 2018-12-21 14:25 | NUR ---
Nutrition Intervention Note RD Recommendation(s) for Physician: - The patient meets criteria for unspecified SEVERE protein-calorie malnutrition. - Continue regular diet as ordered - Continue Ensure Enlive TID to increase protein-calorie intake - Continue Tyshawn BID to promote wound healing - Continue Megace to increase appetite - Continue MVi w/minerals, zinc sulfate, vitamin C - Encourage PO and hydration Plan of Care: RD following, monitoring for tolerance and adequacy, ONS rec Nutrition reason for involvement: Follow up RD Assessment 12/21 Pt was discussed during AM rounds. Probably returning to SNF tomorrow. No change in nutrition status. Her friend continues to bring foods for patient. 12/18 Pt was discussed during AM rounds. Visited pt in the room. Pt continues to have poor appetite with 0% breakfast intake today. Friend has been bringing foods to her. Pt drank 100% of Ensure ordered. Discussed option for tube feeding; pt was not interested. Will continue to monitor and follow. 12/15 58yo F, who was admitted for acute renal insufficiency and hyperkalemia. K WNL today. BG between 180 280. Pt was well known to me from her previous admission. Pt has had progressive weight loss since dx with uterine cancer in July 2018. Pt was d/c from [facility] on 11/01 and lost ~20lbs while staying in [place]. Visited pt in the room. Pt continued to have poor appetite with decreased PO intake. No complains of nausea or vomiting. Pt denied any chewing or swallowing difficulty. Ileostomy bag present. Wound care was consulted for pressure wound. Pt was agreeable with nutrition recommendation above; RD will communicate with MD. Will continue to monitor and follow. Principal Problems/Diagnoses: acute renal insufficiency, anemia, hyperkalemia (resolved) PMH: advanced uterine cancer, diabetes with stage III sacral decubitus ulcer GI: abdomen non-tender, flat, soft, flatus present, liquid brown stool, + ileostomy Skin: Sacral - Stage IV Pressure Ulcer - Present On Admission. Labs: (12/21) No chemistry lab (12/18) BUN 29 H, Creatinine 0.55 L, glucose 137 H (12/15) Na 128 L, BUN 74 H, Creatinine 1.96 H, Glucose 183 H, Ca 11.4 H Meds: insulin, sodium bicarb, megace, zinc sulfate, MVi w/minerals, pepcid, vitamin C, dextrose Ht: 61in Wt: 94.03lb; 96lb; 99lb BMI: 17.8kg/m2 IBW: 105lb Malnutrition Evaluation (12/15/2018) The patient meets criteria for unspecified SEVERE protein-calorie malnutrition. Energy intake: <75% of estimated energy requirements for >3 months Weight loss: >10% in 6 months (Chronic) Fat loss: Severe orbital with dark [place] and hollow, apparent ribs, protrusion of clavicle Muscle loss: Severe temporal depression, squaring shoulder, protruding clavicle, thin calves Supporting Evidence: Fluid accumulation: unable to evaluate Functional Status: no changes Nutrition Prescription (Diet Order): regular diet Estimated Nutritional Needs: Calories: 1290 1505kcal (30-35kcal/kg/d) Weight used : CBW Protein: 65 108g (1.5-2.5g/kg/d) Weight used: CBW Diet Adequacy: Not meeting calorie needs, Not meeting protein needs Diet Education Needs Assessment: Diet education indicated, but patient not appropriate for education at this time. Nutrition Care Level: mod Nutrition Diagnosis: Severe cancer related malnutrition related to inadequate oral intake as evidenced by <75% of estimated energy requirements for >3 months, >10% weight loss in 6 months, and severe muscle/ fat loss upon NFPA. Goal: Patient will meet 75-100% of estimated needs by follow up Progress: Progressing Interventions: General healthful diet, Commercial beverage, Commercial food, Prescription medications, Multivitamin/mineral supplement therapy, Collaboration with other providers Monitoring/Evaluation: Total energy intake, Total protein intake, Prescription medication, Modified diet, Liquid supplement, Weight change Signed: Kelly Saavedra, MS, RD, LD
--- NOTE | 2018-12-21 14:51 | Progress Note ---
DATE: 12/21/2018 MEDICINE PROGRESS NOTE SUBJECTIVE: The patient is actually doing much better today. [place] was actually changed to Percocet. She reports that her pain is better controlled now. She is in good spirits doing a whole lot better now. Our goal is to [facility] to [facility]. LABORATORY DATA: Show white count 15.6, hemoglobin 8, hematocrit is 25.3, and platelets of 432. Chemistry, sodium 135, potassium 4.7, chloride 108, bicarb 24, anion gap of 7.7, BUN 62 and creatinine is 0.84. Urinalysis noted microbiology blood cultures negative, wound cultures negative, and urine cultures negative. OBJECTIVE: VITAL SIGNS: Temperature 99.1, pulse 87, respiratory rate 17, blood pressure 120/102 and pulse ox 98% on room air. GENERAL: Not in acute distress oriented x3. Cooperative on examination. HEENT: Head is normocephalic and atraumatic. Eyes; pupils are equal, round, and reactive to light bilaterally. Extraocular muscles intact. NECK: Supple. Good range of motion throughout. THROAT: No evidence of erythema or exudates in the posterior pharynx. Has poor dentition. PULMONARY: Clear to auscultation bilaterally. No wheezing, rales, or rhonchi. No crackles appreciated. CARDIOVASCULAR: Positive S1, S2. No murmurs, rubs, or gallops appreciated. GI: Abdomen is soft, nondistended, and nontender to palpation. Bowel sounds present. NEUROLOGIC: No evidence of any neurological deficits on exam. SKIN: Intact. Warm to touch. Good cap refill. PSYCHIATRIC: Normal affect and mood. EXTREMITIES: No edema. Good range of motion throughout. IMPRESSION: 1. Sepsis secondary to urinary tract infection with leukocytosis and lactic acidosis, improved. 2. Stage IV sacral wound. 3. Severe protein-calorie malnutrition. 4. Stage IV uterine cancer with metastasis. 5. Generalized weakness and medical debilitation. 6. Chronic bilateral hydronephrosis and ureteral stents with hematuria status post 12/20/2018, bilateral ureteral stent removal with left ureteral stent exchange in place. 7. Metabolic acidosis, hyperkalemia resolved. 8. Acute kidney injury, resolved. 9. Hypocalcemia. 10. Anemia of chronic disease, status post 1 unit of packed RBC transfusion yesterday on 12/20/2018. 11. Adjustment disorder with mixed mood. 12. Sinus tachycardia improved. PLAN: At this time, the patient is doing much better now with the adjustment of the pain medication, which Pain Management is following. Labs seem to be stable. Her white count is elevated likely due to underlying malignancy. No source of infection, afebrile. Continues to be on IV antibiotics which ID is following very closely. Our goal is to [facility] her back to [facility]. She does not want any hospice at this time. Once I get a pain script and cleared for transfer to [facility], she is medically stable for discharge. MD CHASE Saravia/MARIA ELENAL /[id number]
--- NOTE | 2018-12-21 15:30 | NUR ---
Handoff report to nurse Christiansen patient transferred to room 202.
--- NOTE | 2018-12-21 19:00 | NUR ---
Rounding done & report received. Patient laying in speciality bed awake & alert, respirations even & unlabored no distress noted. Tele in place. Patient has right upper piccx2. Iliostomy to LUQ in place, brown liquid stool noted. Wound vac to gluteal noted. Purwick in place. Patient rates pain level 8/10 to lower abdomen, will medicate per order. Call light within reach & side rails x2 raised.
[2018-12-21] MEDS: MELATONIN 5 MG TABLET PO SCH (20:57)
[2018-12-21] MEDS: FENTANYL 50 MCG/HR PATCH TOP SCH (20:58)
[2018-12-22] VITALS (8 sets, daily range): BP systolic 111–144; BP diastolic 64–89
--- NOTE | 2018-12-22 | NUR ---
Per patient request assisted w/ changing iliostomy bag
[2018-12-22] MEDS: HYDROMORPHONE 2MG/ML 2 MG/ML ML IV PRN ×5 (00:25→21:20)
[2018-12-22] MEDS: CYCLOBENZAPRINE HCL 10 MG TAB PO SCH ×3 (05:19→21:20)
[2018-12-22] MEDS: GABAPENTIN 300 MG CAP PO SCH ×3 (05:19→21:20)
[2018-12-22 05:46] LABS: BASOPHILS # (AUTO) 0.1 (0.0-0.1); BASOPHILS % 0.2 % (0.0-1.0); EOSINOPHILS # (AUTO) 0.5 (0.0-0.4); EOSINOPHILS % 2.3 % (0.0-6.0); HEMATOCRIT 29.4 % (34.2-44.1); HEMOGLOBIN 9.1 g/dL (12.0-16.0); LYMPHOCYTES # (AUTO) 3.1 (1.0-3.2); LYMPHOCYTES % 14.5 % (18.0-39.1); MEAN CORPUSCULAR HEMOGLOBIN 24.7 pg (28-32); MEAN CORPUSCULAR VOLUME 79.9 fL (81-99); MONOCYTES # (AUTO) 1.3 (0.2-0.8); MONOCYTES % 6.1 % (4.4-11.3); NEUTROPHILS % 75.9 % (38.7-80.0); PLATELET COUNT 481 x10e3/uL (140-360); RED BLOOD COUNT 3.68 x10e6/uL (3.6-5.1)
[2018-12-22 05:54] LABS: ANION GAP 9.5 mmol/L (8-16); CALCIUM 9.7 mg/dL (8.4-10.2); CREATININE, SERUM 1.22 mg/dL (0.57-1.11); POTASSIUM 5.5 mmol/L (3.5-5.1)
--- NOTE | 2018-12-22 07:00 | NUR ---
BEDSIDE SHIFT REPORT RECEIVED FROM BARI FLOREZ. PT DENIES NEEDS AT THIS TIME.
[2018-12-22] MEDS: INSULIN REGULAR, HUMAN 100 UNIT/1 ML 3ML VIAL SQ SCH ×4 (07:30→20:41)
[2018-12-22] MEDS: ASCORBIC ACID 500 MG TAB PO SCH (08:37)
[2018-12-22] MEDS: MEGACE 400MG/ 10ML CUP PO SCH (08:37)
[2018-12-22] MEDS: VITAMIN E 400 UNIT CAP PO SCH (08:37)
[2018-12-22] MEDS: MIDODRINE HCL 5 MG TABLET PO SCH ×3 (08:37→16:03)
[2018-12-22] MEDS: METOPROLOL TARTRATE 25 MG TAB PO SCH ×2 (08:37→21:19)
[2018-12-22] MEDS: SODIUM BICARBONATE 650 MG TAB PO SCH ×2 (08:37→18:00)
[2018-12-22] MEDS: VENLAFAXINE HCL 37.5MG XR CAP PO SCH (08:37)
[2018-12-22] MEDS: MULTIVITAMINS/MINERALS TAB PO SCH (08:37)
[2018-12-22] MEDS: FAMOTIDINE 20 MG TAB PO SCH ×2 (08:37→18:00)
[2018-12-22] MEDS: ZINC SULFATE 220 MG CAP PO SCH (08:37)
[2018-12-22] MEDS: OXYCODONE/ACETAMINOPHEN 5-325 1 EACH TABLET PO PRN (08:38)
--- NOTE | 2018-12-22 11:14 | NUR ---
PICC LINE DRESSING CHANGED AT THIS TIME. PT TOLERATED. NEW PURE WICK IN PLACE. WOUND VAC IN PLACE AND OPERATING AT [facility].
[2018-12-22] MEDS ORDERED: DEXTROSE 50% SYRINGE 50 ML IV ONE (13:42)
[2018-12-22] MEDS ORDERED: INSULIN REGULAR, HUMAN 100 UNIT/1 ML 3ML VIAL SQ ONE (13:42)
[2018-12-22] MEDS ORDERED: FUROSEMIDE INJ 10 MG/ML 4 ML VIAL IV ONE (13:45)
[2018-12-22] MEDS ORDERED: LACTULOSE SYRUP 20 GM/30 ML UDC PO ONE (13:45)
--- NOTE | 2018-12-22 13:49 | NUR ---
DR. MARTINO ORDERED THE AMP OF D50 AND 10 UNITS INSULIN STAT NOW TO DROP PT'S POTASSIUM.
--- NOTE | 2018-12-22 15:28 | Progress Note ---
DATE: 12/22/2018 Psychiatric Progress Note SUBJECTIVE: The patient is evaluated and events noted. The patient is in the room. She is alert, awake, and oriented to situation. She reports feeling less depressed and less anxious. She denies any suicidal ideation. She denies any hallucination. She denies problem with sleep or appetite. She denies any side effects from medication. ASSESSMENT: Adjustment disorder with mixed mood. PLAN: 1. Continue Effexor XR. 2. Continue melatonin. 3. Supportive therapy. 4. Continue Neurontin. Dictated by Marilou Wells PA-C Dolly Mas MD QTV/MODL /[id number]
[2018-12-22 18:48] LABS: ANION GAP 11.3 mmol/L (8-16); CALCIUM 9.9 mg/dL (8.4-10.2); CREATININE, SERUM 1.42 mg/dL (0.57-1.11); POTASSIUM 5.3 mmol/L (3.5-5.1)
[2018-12-22] MEDS: MELATONIN 5 MG TABLET PO SCH (21:19)
[2018-12-23] VITALS (8 sets, daily range): BP systolic 89–132; BP diastolic 55–84
--- NOTE | 2018-12-23 02:45 | Discharge Summary ---
FINAL DISCHARGE DIAGNOSES: 1. Sepsis secondary to urinary tract infection with leukocytosis and lactic acidosis. All negative cultures. No further antibiotics needed per Infectious Disease. Leukocytosis is likely secondary to underlying malignancy. 2. Stage IV sacral wound, looks well. 3. Severe protein-calorie malnutrition. 4. Stage IV uterine cancer with metastasis, refuses hospice care. 5. Generalized weakness and medical debilitation. 6. Chronic bilateral hydronephrosis with ureteral stents with hematuria, status post on 12/20/2018, bilateral ureteral stent removal with left ureteral stent exchange. 7. Metabolic acidosis and hyperkalemia, resolved. 8. Acute kidney injury, resolved. 9. Hypercholesterolemia, resolved. 10. Anemia of chronic disease, status post blood transfusion performed on 12/20/2018. 11. Adjustment disorder with mixed mood. 12. Sinus tachycardia, resolved. CONSULTANTS: Rehab Psychiatry, Hematology/Oncology, Pain Management, Infectious Disease. PHYSICAL EXAMINATION: VITAL SIGNS: Temperature is 98.1, pulse 75, respiratory rate 18, blood pressure 111/76, pulse ox is 100% on room air. LABORATORY FINDINGS: Show white count was found to be 15.6, hemoglobin 9.1, hematocrit 29.4, platelets of 483. Chemistry; sodium 136, potassium 4.7, chloride 108, bicarb 24, anion gap of 9.5, BUN 70, creatinine is 1.2, glucose 92, calcium 9.7, magnesium is 1.3, albumin is 2.1. Urinalysis noted. MICROBIOLOGY: Urine culture is negative. Blood cultures negative. Wound cultures were negative. IMAGING STUDIES: Lumbar CT showed no lumbar spine fracture or subluxation. Persistent bilateral hydroureteronephrosis secondary to partially imaged urinary malignancy. We felt that there was a ureteral stent in place. Chest x-ray was negative. CT cervical spine was negative. CT head was negative. Pelvis x-ray, no evidence of any acute displaced fracture or dislocation. CT abdomen and pelvis just shows the sacral decubitus ulcer with extensions to the coccygeal tip. There is a large uterine mass, which is likely centrally necrotic and invaded the bladder, distal ureter, sigmoid colon, and rectum. There is evidence of increased size in the right adrenal mass with metastasis of retroperitoneal and iliac lymphadenopathy. Bilateral hydronephrosis is slightly increased on the left with internal ureteral stents in appropriate position. HOSPITAL COURSE: This is a 58-year-old female with known history of stage IV uterine cancer with metastasis, who currently is at the shelter facility, presents with worsening conditions of fevers, generalized weakness, and concerns for underlying urinary tract infection. The patient was admitted to [facility] and treated for underlying sepsis for presumed to have urinary tract infection. She was found to have elevated white count as well as lactic acidosis. The patient's urine cultures were found to be negative. Blood cultures were negative. The white count maintained at a higher end, but it was thought to be secondary to underlying malignancy leading to an elevated white count. Her lactic acidosis improved. While here in the hospital stay, ID and Hematology/Oncology were consulted. The patient maintained on IV antibiotics while here in the hospital stay. ID recommends no further antibiotic therapy needed upon discharge. It was felt by ID that the underlying white count is secondary to underlying malignancy and at this time no need for any antibiotics. In relation to Hematology/Oncology recommended hospice, but the patient refused on several occasions. The patient was given a blood transfusion by Hematology with much improved hemoglobin to be 9.1. Urology was consulted as well due to her bilateral hydronephrosis seen on imaging studies. The patient underwent a removal of bilateral ureteral stents with an exchange of the left ureteral stent in placed of it. She did have underlying hematuria, which resolved after the exchange of ureteral stents. Pain Management was consulted for pain control and was given medications accordingly. Psychiatry was consulted as well and it was felt that the patient likely has adjustment disorder with mixed mood and given medications accordingly. The patient was then cleared for discharge by all consultants with no other workups needed at this time. The patient will be off antibiotics upon discharge per ID recommendations and it was felt by ID and Hematology/Oncology that the white count elevation is due to underlying malignancy. The patient has been cleared by all consultants. On the day of discharge, vital signs stable, labs reviewed and stable. The patient is evaluated and examined thoroughly on the day of discharge. No other complaints. The patient verbalized understanding and agrees to plan of care. Follow up accordingly as an outpatient with primary care physician in 1 week and her oncologist in about 2 weeks' time. MEDICATIONS: See med reconciliation form. DISPOSITION: Home. CONDITION: Stable. DIET: Heart healthy. In the event of any worsening symptoms, the patient was advised to come back to the ED for further evaluation. Discharge summary took greater than 35 minutes. MD CHASE Saravia/TALHA /[id number]
[2018-12-23] MEDS: CYCLOBENZAPRINE HCL 10 MG TAB PO SCH ×3 (06:21→21:36)
[2018-12-23] MEDS: GABAPENTIN 300 MG CAP PO SCH ×3 (06:21→21:36)
--- NOTE | 2018-12-23 07:00 | NUR ---
RCD PT AT BED PT IS ALERT AND ORIENTED AND RESTING ON BED NO SIGNS PF ANY DISTRESS NOTED IV PATENT BED LOW AND LOCKED CALL LIGHT IN REACH
[2018-12-23] MEDS: OXYCODONE/ACETAMINOPHEN 5-325 1 EACH TABLET PO PRN ×3 (07:10→19:53)
[2018-12-23] MEDS: INSULIN REGULAR, HUMAN 100 UNIT/1 ML 3ML VIAL SQ SCH ×4 (07:30→21:00)
[2018-12-23] MEDS: HYDROMORPHONE 2MG/ML 2 MG/ML ML IV PRN ×4 (08:04→22:00)
[2018-12-23] MEDS: ZINC SULFATE 220 MG CAP PO SCH (08:20)
[2018-12-23] MEDS: ASCORBIC ACID 500 MG TAB PO SCH (08:20)
[2018-12-23] MEDS: VITAMIN E 400 UNIT CAP PO SCH (08:20)
[2018-12-23] MEDS: MULTIVITAMINS/MINERALS TAB PO SCH (08:20)
[2018-12-23] MEDS: VENLAFAXINE HCL 37.5MG XR CAP PO SCH (08:20)
[2018-12-23] MEDS: MIDODRINE HCL 5 MG TABLET PO SCH ×3 (08:20→16:00)
[2018-12-23] MEDS: METOPROLOL TARTRATE 25 MG TAB PO SCH ×2 (08:20→21:37)
[2018-12-23] MEDS: MEGACE 400MG/ 10ML CUP PO SCH (08:20)
[2018-12-23] MEDS: SODIUM BICARBONATE 650 MG TAB PO SCH ×2 (08:20→17:00)
[2018-12-23] MEDS: FAMOTIDINE 20 MG TAB PO SCH ×2 (08:20→17:00)
--- NOTE | 2018-12-23 08:20 | NUR ---
Patient went to with family member at this time. Approved per MD and backup administrator individual pension adviser. Order noted
--- NOTE | 2018-12-23 08:25 | NUR ---
PATIENT WENT TO HER SONS IN SAFE CONDITION WITH HER FAMILY
--- NOTE | 2018-12-23 11:40 | NUR ---
PATIENT BACK AFTER THE OF HER SON
--- NOTE | 2018-12-23 18:58 | Progress Note ---
DATE: 12/23/2018 Medicine Progress Note SUBJECTIVE: The patient is doing well today with no complaints. No overnight events. The patient was kept till yesterday because there was some confusion with the insurance company and the longterm facility. At this time, we are just going to have to keep the patient here. Monitor very closely. No new events overnight. LABORATORY DATA: There is no CBC today. Chemistry none. PHYSICAL EXAMINATION: VITAL SIGNS: Temperature 98.5, pulse 79, respiratory rate is 18, blood pressure 106/65, pulse ox 97% on room air. GENERAL: No acute distress. Alert and oriented x3. Cooperative on examination HEENT: Head is normocephalic and atraumatic. Eyes, pupils equal, round and reactive to light bilaterally. Extraocular movements intact bilaterally. Throat, no evidence of erythema or exudates in the posterior pharynx. Has poor dentition. NECK: Supple. Good range of motion. PULMONARY: Clear to auscultation bilaterally. No wheezing, rales or rhonchi. No crackles appreciated. CARDIOVASCULAR: Positive S1 and S2. No murmur, rub or gallop appreciated. ABDOMEN: Soft, nondistended, nontender to palpation. Bowel sounds are present. MUSCULOSKELETAL: Strength is 5/5 throughout. No evidence of any muscle deficits on examination. NEUROLOGICAL: Cranial nerves 2 through 12 grossly intact. No evidence of any neurological deficits on exam. SKIN: Intact. Warm to touch. Good cap refill. PSYCHIATRIC: Normal affect and mood. EXTREMITIES: No edema. Good range of motion throughout. IMPRESSION: 1. Severe sepsis secondary to urinary tract infection with leukocytosis, lactic acidosis. All cultures are found to be negative. 2. Stage IV sacral wound. 3. Severe protein calorie malnutrition. 4. Stage IV uterine cancer with metastasis. 5. Generalized weakness and medical debilitation. 6. Bilateral hydronephrosis with ureteral stent with hematuria, status post 12/20/2018 with bilaterally ureteral stents removed with left ureteral stent exchange in place. 7. Metabolic acidosis with mild hyperkalemia. The patient's acute kidney injury resolved. 8. Hypocalcemia. 9. Anemia of chronic disease status post blood transfusion on 12/20/2018. 10. Adjustment disorder with mixed mood. 11. Sinus tachycardia, improved. PLAN: At this time, the patient was not discharged yesterday due to insurance issues longterm facility. We will continue to monitor very closely. We will continue with same plan of care with no changes. All consultants are still following with her as well. We will continue the same diet, same plan of care. I discussed plan of care with nursing staff. MD CHASE Saravia/TALHA /[id number]
--- NOTE | 2018-12-23 19:00 | NUR ---
PT RESTING ON BED BED SIDE REPORT GIVEN TO ONCOMING NURSE
[2018-12-23] MEDS: MELATONIN 5 MG TABLET PO SCH (21:37)
[2018-12-24] VITALS (7 sets, daily range): BP systolic 109–135; BP diastolic 59–95
[2018-12-24] MEDS: HYDROMORPHONE 2MG/ML 2 MG/ML ML IV PRN ×4 (02:57→21:00)
[2018-12-24] MEDS: GABAPENTIN 300 MG CAP PO SCH ×3 (05:22→21:06)
[2018-12-24] MEDS: CYCLOBENZAPRINE HCL 10 MG TAB PO SCH ×3 (05:22→21:06)
[2018-12-24 06:29] LABS: BASOPHILS % 0.2 % (0.0-1.0); EOSINOPHILS # (AUTO) 0.4 (0.0-0.4); EOSINOPHILS % 1.9 % (0.0-6.0); HEMATOCRIT 27.4 % (34.2-44.1); HEMOGLOBIN 8.6 g/dL (12.0-16.0); LYMPHOCYTES # (AUTO) 2.5 (1.0-3.2); LYMPHOCYTES % 13.8 % (18.0-39.1); MEAN CORPUSCULAR HEMOGLOBIN 24.7 pg (28-32); MEAN CORPUSCULAR HGB CONC 31.4 g/dL (31-35); MEAN CORPUSCULAR VOLUME 78.7 fL (81-99); MONOCYTES # (AUTO) 1.3 (0.2-0.8); NEUTROPHILS # (AUTO) 13.8 (2.1-6.9); NEUTROPHILS % 76.2 % (38.7-80.0); PLATELET COUNT 441 x10e3/uL (140-360); RED BLOOD COUNT 3.48 x10e6/uL (3.6-5.1); RED CELL DISTRIBUTION WIDTH 16.9 % (11.7-14.4)
[2018-12-24 06:46] LABS: ANION GAP 13.6 mmol/L (8-16); CALCIUM 9.8 mg/dL (8.4-10.2); CREATININE, SERUM 1.43 mg/dL (0.57-1.11); POTASSIUM 5.6 mmol/L (3.5-5.1)
--- NOTE | 2018-12-24 07:00 | NUR ---
BEDSIDE SHIFT REPORT RECEIVED FROM NIGHT RN. PT DENIES NEEDS AT THIS TIME.
--- NOTE | 2018-12-24 07:14 | NUR ---
PATIENT ENDORSED TO NEXT SHIFT FOR CONTINUITY OF CARE.
[2018-12-24] MEDS: INSULIN REGULAR, HUMAN 100 UNIT/1 ML 3ML VIAL SQ SCH ×5 (07:30→21:05)
[2018-12-24] MEDS: MIDODRINE HCL 5 MG TABLET PO SCH ×2 (08:45→12:23)
[2018-12-24] MEDS: VENLAFAXINE HCL 37.5MG XR CAP PO SCH (09:08)
[2018-12-24] MEDS: FAMOTIDINE 20 MG TAB PO SCH ×2 (09:09→16:59)
[2018-12-24] MEDS: ZINC SULFATE 220 MG CAP PO SCH (09:09)
[2018-12-24] MEDS: ASCORBIC ACID 500 MG TAB PO SCH (09:09)
[2018-12-24] MEDS: MULTIVITAMINS/MINERALS TAB PO SCH (09:09)
[2018-12-24] MEDS: SODIUM BICARBONATE 650 MG TAB PO SCH ×2 (09:09→16:59)
[2018-12-24] MEDS: VITAMIN E 400 UNIT CAP PO SCH (09:09)
[2018-12-24] MEDS: METOPROLOL TARTRATE 25 MG TAB PO SCH ×2 (09:09→21:04)
[2018-12-24] MEDS: MEGACE 400MG/ 10ML CUP PO SCH (09:09)
[2018-12-24] MEDS: OXYCODONE/ACETAMINOPHEN 5-325 1 EACH TABLET PO PRN (09:15)
[2018-12-24] MEDS ORDERED: SOD POLYSTYRENE SULFONATE SUSP 15 GM/60 ML BTL PO ONE (14:30)
[2018-12-24] MEDS ORDERED: FUROSEMIDE INJ 10 MG/ML 4 ML VIAL IV ONE (14:30)
--- NOTE | 2018-12-24 17:18 | Progress Note ---
DATE: 12/24/2018 Medicine Progress Note SUBJECTIVE: The patient is doing much better today with no complaints. We are just waiting for [facility] facility placement. LAB FINDINGS: White count is 18, hemoglobin 8.16, hematocrit is 27, and platelets of 441. Chemistry; sodium 138, potassium is 5.6, chloride 105, bicarb 25, anion gap of 13, BUN is 63, creatinine is 1.43, glucose is 101, calcium is 9.8. PHYSICAL EXAMINATION: VITAL SIGNS: Temperature 97.8, pulse 88, respiratory rate is 18, blood pressure 109/95, pulse ox 97% on room air. GENERAL: In no acute distress. Alert and oriented x3. Cooperative on examination. HEENT: Head is normocephalic, atraumatic. Eyes; Pupils are equal, round, and reactive to light bilaterally. Extraocular movements are intact bilaterally. Throat; no evidence of any erythema or exudates in the posterior pharynx. Has poor dentition. NECK: Supple. Good range of motion. PULMONARY: Clear to auscultation bilaterally. No wheezing, no rales, no rhonchi, no crackles appreciated. CARDIOVASCULAR: Positive S1, S2. No murmurs, rubs, or gallops appreciated. ABDOMEN: Soft, nondistended, and nontender to palpation. Bowel sounds present. MUSCULOSKELETAL: Strength is 5/5 throughout. No evidence of any muscle deficits on examination. No weakness appreciated. NEUROLOGIC: Cranial nerves II through XII grossly intact. No evidence of any neurological deficits on exam. SKIN: Intact. Warm to touch. Good cap refill. PSYCHIATRIC: Normal affect and mood. EXTREMITIES: No edema. Good range of motion throughout. IMPRESSION: 1. Severe sepsis secondary to urinary tract infection with leukocytosis, lactic acidosis with all cultures found to be negative and now off antibiotics. 2. Stage IV sacral wound. 3. Severe protein-calorie malnutrition. 4. Stage IV uterine cancer with metastasis. 5. Generalized weakness and medical debilitation. 6. Bilateral hydronephrosis with ureteral stents with hematuria, status post 12/20/2018, with bilateral ureteral stent removed with left ureteral stent exchange in place. 7. Metabolic acidosis with mild hyperkalemia. Acute kidney injury, resolved. 8. Hypocalcemia. 9. Anemia of chronic disease, status post blood transfusion on 12/20/2018. 10. Adjustment disorder with mixed mood. 11. Sinus tachycardia, improved. PLAN: At this time, potassium is elevated. We will give Kayexalate 30 g p.o. x1, Lasix 40 mg IV once. We will get a.m. labs. We are still waiting on the insurance company for approval for [facility]. Otherwise, she is doing well at baseline with no other complaints. Continue same plan of care. MD CHASE Saravia/TALHA /[id number]
--- NOTE | 2018-12-24 17:31 | NUR ---
WOUND VAC BACK TO WOUND AT THIS TIME. PT TOLERATED.
[2018-12-24] MEDS: FENTANYL 50 MCG/HR PATCH TOP SCH (21:00)
[2018-12-24] MEDS: MELATONIN 5 MG TABLET PO SCH (21:04)
[2018-12-25] VITALS (7 sets, daily range): BP systolic 97–146; BP diastolic 62–78
[2018-12-25] MEDS: HYDROMORPHONE 2MG/ML 2 MG/ML ML IV PRN ×6 (01:00→23:26)
[2018-12-25 04:35] LABS: BASOPHILS % 0.2 % (0.0-1.0); EOSINOPHILS # (AUTO) 0.2 (0.0-0.4); EOSINOPHILS % 1.3 % (0.0-6.0); HEMATOCRIT 27.4 % (34.2-44.1); HEMOGLOBIN 8.5 g/dL (12.0-16.0); LYMPHOCYTES # (AUTO) 2.5 (1.0-3.2); LYMPHOCYTES % 14.5 % (18.0-39.1); MEAN CORPUSCULAR HEMOGLOBIN 24.6 pg (28-32); MEAN CORPUSCULAR VOLUME 79.2 fL (81-99); MONOCYTES # (AUTO) 1.2 (0.2-0.8); MONOCYTES % 6.6 % (4.4-11.3); NEUTROPHILS # (AUTO) 13.4 (2.1-6.9); NEUTROPHILS % 76.9 % (38.7-80.0); PLATELET COUNT 470 x10e3/uL (140-360); RED BLOOD COUNT 3.46 x10e6/uL (3.6-5.1)
[2018-12-25 04:49] LABS: ANION GAP 15.3 mmol/L (8-16); CREATININE, SERUM 1.66 mg/dL (0.57-1.11); POTASSIUM 5.3 mmol/L (3.5-5.1)
[2018-12-25] MEDS: CYCLOBENZAPRINE HCL 10 MG TAB PO SCH ×3 (05:19→21:11)
[2018-12-25] MEDS: GABAPENTIN 300 MG CAP PO SCH (05:19)
[2018-12-25] MEDS: INSULIN REGULAR, HUMAN 100 UNIT/1 ML 3ML VIAL SQ SCH ×3 (07:30→17:00)
[2018-12-25] MEDS: VENLAFAXINE HCL 37.5MG XR CAP PO SCH (08:21)
[2018-12-25] MEDS: METOPROLOL TARTRATE 25 MG TAB PO SCH ×2 (08:22→21:10)
[2018-12-25] MEDS: VITAMIN E 400 UNIT CAP PO SCH (08:22)
[2018-12-25] MEDS: MEGACE 400MG/ 10ML CUP PO SCH (08:22)
[2018-12-25] MEDS: MULTIVITAMINS/MINERALS TAB PO SCH (08:22)
[2018-12-25] MEDS: ZINC SULFATE 220 MG CAP PO SCH (08:22)
[2018-12-25] MEDS: SODIUM BICARBONATE 650 MG TAB PO SCH (08:22)
[2018-12-25] MEDS: FAMOTIDINE 20 MG TAB PO SCH ×2 (08:22→17:40)
[2018-12-25] MEDS: ASCORBIC ACID 500 MG TAB PO SCH (08:22)
[2018-12-25] MEDS: OXYCODONE/ACETAMINOPHEN 5-325 1 EACH TABLET PO PRN ×2 (08:22→20:58)
--- NOTE | 2018-12-25 10:20 | NUR ---
AM labs reported to Dr. Bean. New orders received.
[2018-12-25] MEDS ORDERED: FUROSEMIDE INJ 10 MG/ML 4 ML VIAL IV ONE (10:30)
[2018-12-25] MEDS ORDERED: SOD POLYSTYRENE SULFONATE SUSP 15 GM/60 ML BTL PO ONE (10:30)
[2018-12-25] MEDS: SODIUM CHLORIDE 0.9% 1000ML 1,000 ML IV SCH ×2 (10:40→21:10)
--- NOTE | 2018-12-25 11:07 | NUR ---
MET WITH PT EXPLAINED THAT [facility] WOULD NOT ACCEPT PT BACK DUE TO INSURANCE NOT PROVIDING FACILITY WITH LETTER OF AGREEMENT, GAVE LIST FOR SELECTION OF OTHER FACILITY IN NETWORK, SHE CHOOSE [facility]ALS. SHE STATES IF [facility] NOT TA[facility] INSURANCE THEN SHE WANTS [facility] IN [place].
--- NOTE | 2018-12-25 15:43 | NUR ---
Nutrition Intervention Note RD Recommendation(s) for Physician: - The patient meets criteria for unspecified SEVERE protein-calorie malnutrition. - Continue regular diet as ordered - Continue Ensure Enlive TID to increase protein-calorie intake - Continue Tyshawn BID to promote wound healing - Continue Megace to increase appetite - Continue MVi w/minerals, zinc sulfate, vitamin C - Encourage PO and hydration Plan of Care: RD following, monitoring for tolerance and adequacy, ONS rec Nutrition reason for involvement: Follow up RD Assessment 12/23 Pt reported some improvement in her appetite. Pt has been eating more foods that her friend brought in. Pt drank 100% of Ensure and take all Tyshawn ordered. No GI complains reported. Pending placement at this time. 12/21 Pt was discussed during AM rounds. Probably returning to [facility] tomorrow. No change in nutrition status. Her friend continues to bring foods for patient. 12/18 Pt was discussed during AM rounds. Visited pt in the room. Pt continues to have poor appetite with 0% breakfast intake today. Friend has been bringing foods to her. Pt drank 100% of Ensure ordered. Discussed option for tube feeding; pt was not interested. Will continue to monitor and follow. 12/15 58yo F, who was admitted for acute renal insufficiency and hyperkalemia. K WNL today. BG between 180 280. Pt was well known to me from her previous admission. Pt has had progressive weight loss since dx with uterine cancer in July 2018. Pt was d/c from [facility] on 11/01 and lost ~20lbs while staying in [place]. Visited pt in the room. Pt continued to have poor appetite with decreased PO intake. No complains of nausea or vomiting. Pt denied any chewing or swallowing difficulty. Ileostomy bag present. Wound care was consulted for pressure wound. Pt was agreeable with nutrition recommendation above; RD will communicate with MD. Will continue to monitor and follow. Principal Problems/Diagnoses: acute renal insufficiency, anemia, hyperkalemia (resolved) PMH: advanced uterine cancer, diabetes with stage III sacral decubitus ulcer GI: abdomen tender, flat, soft, liquid brown stool, + ileostomy Skin: Sacral - Stage IV Pressure Ulcer - Present On Admission. Labs: (12/25) K 5.3 H, BUN 69 H, Creatinine 1.66 H (12/21) No chemistry lab (12/18) BUN 29 H, Creatinine 0.55 L, glucose 137 H (12/15) Na 128 L, BUN 74 H, Creatinine 1.96 H, Glucose 183 H, Ca 11.4 H Meds: flexeril, NaCl, megace, zinc sulfat, vitamin E, MVi w/minerals, vitamin C, pepcid Ht: 61in Wt: 94.03lb; 96lb; 99lb BMI: 17.8kg/m2 IBW: 105lb Malnutrition Evaluation (12/15/2018) The patient meets criteria for unspecified SEVERE protein-calorie malnutrition. Energy intake: <75% of estimated energy requirements for >3 months Weight loss: >10% in 6 months (Chronic) Fat loss: Severe orbital with dark [place] and hollow, apparent ribs, protrusion of clavicle Muscle loss: Severe temporal depression, squaring shoulder, protruding clavicle, thin calves Supporting Evidence: Fluid accumulation: unable to evaluate Functional Status: no changes Nutrition Prescription (Diet Order): regular diet with Ensure TID and Tyshawn BID Estimated Nutritional Needs: Calories: 1290 1505kcal (30-35kcal/kg/d) Weight used : CBW Protein: 65 108g (1.5-2.5g/kg/d) Weight used: CBW Diet Adequacy: Not meeting calorie needs, Not meeting protein needs Diet Education Needs Assessment: Diet education indicated, but patient not appropriate for education at this time. Nutrition Care Level: mod Nutrition Diagnosis: Severe cancer related malnutrition related to inadequate oral intake as evidenced by <75% of estimated energy requirements for >3 months, >10% weight loss in 6 months, and severe muscle/ fat loss upon NFPA. Goal: Patient will meet 75-100% of estimated needs by follow up Progress: Progressing Interventions: General healthful diet, Commercial beverage, Commercial food, Prescription medications, Multivitamin/mineral supplement therapy, Collaboration with other providers Monitoring/Evaluation: Total energy intake, Total protein intake, Prescription medication, Modified diet, Liquid supplement, Weight change Signed: Kelly Saavedra MS, RD, LD
--- NOTE | 2018-12-25 16:27 | Progress Note ---
DATE: 12/25/2018 Medicine Progress Note SUBJECTIVE: The patient is doing well today with no complaints. Potassium is slightly elevated. She looks dehydrated, not drinking enough fluids. Started on IV fluids. Pending detention facility placement. PHYSICAL EXAMINATION: VITAL SIGNS: She is afebrile. Normotensive. Respiratory rate is good. GENERAL: In no acute distress. Alert and oriented x3. Cooperative on examination. HEENT: Head is normocephalic, atraumatic. Eyes; Pupils are equal, round, and reactive to light bilaterally. Extraocular movements are intact bilaterally. Throat; no evidence of any erythema or exudates in the posterior pharynx. Has poor dentition. NECK: Supple. Good range of motion. PULMONARY: Clear to auscultation bilaterally. No wheezing, no rales, no rhonchi, no crackles appreciated. CARDIOVASCULAR: Positive S1, S2. No murmurs, rubs, or gallops appreciated. ABDOMEN: Soft, nondistended, and nontender to palpation. Bowel sounds present. MUSCULOSKELETAL: Strength is 5/5 throughout. No evidence of any muscle deficits on examination. No weakness appreciated. NEUROLOGIC: Cranial nerves II through XII grossly intact. No evidence of any neurological deficits on exam. SKIN: Intact. Warm to touch. Good cap refill. PSYCHIATRIC: Normal affect and mood. EXTREMITIES: No edema. Good range of motion throughout. LABORATORY DATA: Labs reviewed. Shows a white count of 17.4, which is stable for her. Hemoglobin 8.5, hematocrit 27, and platelets is 470. Chemistry; sodium 138, potassium 5.3, chloride 100, bicarb 28, anion gap 15, BUN is 69, creatinine is 1.66. IMPRESSION: 1. Severe sepsis secondary to urinary tract infection with leukocytosis, lactic acidosis. All cultures found to be negative, off antibiotics per ID. 2. Stage IV sacral wound. 3. Severe protein-calorie malnutrition. 4. Stage IV uterine cancer with metastasis. 5. Generalized weakness and medical debilitation. 6. Bilateral hydronephrosis with ureteral stents with hematuria, status post 12/20/2018, with bilateral ureteral stent removed with left ureteral stent exchange. 7. Metabolic acidosis with mild hyperkalemia. 8. Acute kidney injury secondary to from dehydration. 9. Hypocalcemia. 10. Anemia of chronic disease, status post blood transfusion on 12/20/2018. 11. Adjustment disorder with mixed mood. 12. Sinus tachycardia, improved. PLAN: At this time, potassium is slightly elevated. We will give Kayexalate 30 g p.o. x1, Lasix 40 mg IV x1. We will also start on normal saline at 100 mL/h. Otherwise from medical standpoint she is cleared by all consultants to be discharged. She does not need IV antibiotics. We are just awaiting for detention facility that will accept her based on her insurance. We will continue with same plan of care while she is here. Discussed with nursing staff. MD CHASE Saravia/TALHA /[id number]
--- NOTE | 2018-12-25 19:00 | NUR ---
report received from day nurse. patient is resting comfortably in bed. bed is in lowest position and call cerda is within reach. will continue to monitor patient's plan of care.
[2018-12-25] MEDS: MELATONIN 5 MG TABLET PO SCH (21:10)
[2018-12-26] VITALS (7 sets, daily range): BP systolic 108–133; BP diastolic 60–69
[2018-12-26] MEDS: HYDROMORPHONE 2MG/ML 2 MG/ML ML IV PRN ×4 (04:48→15:56)
[2018-12-26 05:27] LABS: BASOPHILS # (AUTO) 0.1 (0.0-0.1); BASOPHILS % 0.3 % (0.0-1.0); EOSINOPHILS # (AUTO) 0.3 (0.0-0.4); EOSINOPHILS % 1.5 % (0.0-6.0); HEMATOCRIT 24.5 % (34.2-44.1); LYMPHOCYTES # (AUTO) 3.3 (1.0-3.2); LYMPHOCYTES % 14.4 % (18.0-39.1); MEAN CORPUSCULAR HGB CONC 31.8 g/dL (31-35); MEAN CORPUSCULAR VOLUME 78.5 fL (81-99); MONOCYTES # (AUTO) 1.4 (0.2-0.8); NEUTROPHILS # (AUTO) 17.5 (2.1-6.9); NEUTROPHILS % 77.1 % (38.7-80.0); PLATELET COUNT 462 x10e3/uL (140-360); RED BLOOD COUNT 3.12 x10e6/uL (3.6-5.1); RED CELL DISTRIBUTION WIDTH 17.2 % (11.7-14.4)
[2018-12-26] MEDS: CYCLOBENZAPRINE HCL 10 MG TAB PO SCH ×4 (05:31→21:26)
[2018-12-26 05:42] LABS: HEMOGLOBIN 7.8 g/dL (12.0-16.0)
[2018-12-26 05:48] LABS: ANION GAP 15.1 mmol/L (8-16); CALCIUM 9.4 mg/dL (8.4-10.2); CREATININE, SERUM 1.75 mg/dL (0.57-1.11); POTASSIUM 5.1 mmol/L (3.5-5.1)
[2018-12-26] MEDS: OXYCODONE/ACETAMINOPHEN 5-325 1 EACH TABLET PO PRN ×2 (06:24→17:39)
[2018-12-26] MEDS: SODIUM CHLORIDE 0.9% 1000ML 1,000 ML IV SCH ×2 (06:30→16:30)
--- NOTE | 2018-12-26 07:03 | NUR ---
report given to morning nurse. patient is resting comfortably in bed. bed is in lowest position and call cerda is within reach.
[2018-12-26] MEDS: INSULIN REGULAR, HUMAN 100 UNIT/1 ML 3ML VIAL SQ SCH ×4 (07:30→19:52)
[2018-12-26] MEDS: VENLAFAXINE HCL 37.5MG XR CAP PO SCH (08:31)
[2018-12-26] MEDS: MEGACE 400MG/ 10ML CUP PO SCH (08:31)
[2018-12-26] MEDS: MULTIVITAMINS/MINERALS TAB PO SCH (08:31)
[2018-12-26] MEDS: METOPROLOL TARTRATE 25 MG TAB PO SCH ×3 (08:31→21:04)
[2018-12-26] MEDS: FAMOTIDINE 20 MG TAB PO SCH ×2 (08:31→16:31)
[2018-12-26] MEDS: ASCORBIC ACID 500 MG TAB PO SCH (08:32)
[2018-12-26] MEDS: ZINC SULFATE 220 MG CAP PO SCH (08:32)
[2018-12-26] MEDS: VITAMIN E 400 UNIT CAP PO SCH (08:32)
--- NOTE | 2018-12-26 10:30 | NUR ---
Dr. Bean notified of AM Labs and patient now having hematuria. Orders to contact urology. Paged Dr. Daley, awaiting call back.
--- NOTE | 2018-12-26 15:00 | NUR ---
Wound vac dressing changed to the sacral area.
--- NOTE | 2018-12-26 17:35 | NUR ---
Dr. Daley returned call. He was notified of patient's current labs and hematuria. He said patient may need intervention, no orders received at this time.
--- NOTE | 2018-12-26 19:10 | NUR ---
RECEIVED PATIENT. PATIENT IS AAOX3. RESP EVEN AND UNLABORED. NO ACUTE DISTRESS NOTED. WOUND VAC TO SACRUM NOTED, DRY AND INTACT. COLOSTOMY NOTED TO LLQ, DRY AND INTACT. CALL LIGHT WITHIN REACH. INSTRUCT TO CALL FOR ASSISTANCE. BED LOW/LOCKED. CONTINUE TO MONITOR CLOSELY
--- NOTE | 2018-12-26 19:58 | Progress Note ---
DATE: 12/26/2018 Medicine Progress Note SUBJECTIVE: The patient apparently is having more hematuria now. Her creatinine is elevated now. Discussed case with nursing staff. Urology was notified. LABORATORY FINDINGS: Show a white count of 22, hemoglobin 7.8, hematocrit 24.5, and platelets of 462. Sodium 135, potassium 5.1, chloride 100, bicarb 25, anion gap of 15, BUN 71 , creatinine is 1.7, glucose 106, calcium 9.4. PHYSICAL EXAMINATION: VITAL SIGNS: Temperature is 98.7, pulse 91, respiratory rate is 19, blood pressure 119/66, pulse ox 97% on room air. GENERAL: In no acute distress. Alert and oriented x3. Cooperative on examination. HEENT: Head is normocephalic, atraumatic. Eyes; Pupils are equal, round, and reactive to light bilaterally. Extraocular movements are intact bilaterally. Throat; no evidence of any erythema or exudates in the posterior pharynx. Has poor dentition. PULMONARY: Clear to auscultation bilaterally. No wheezing, no rales, no rhonchi, no crackles appreciated. CARDIOVASCULAR: Positive S1, S2. No murmurs, rubs, or gallops appreciated. ABDOMEN: Soft, nondistended, and nontender to palpation. Bowel sounds present. MUSCULOSKELETAL: Strength is 5/5 throughout. No evidence of any muscle deficits on examination. No weakness appreciated. NEUROLOGIC: Cranial nerves II through XII grossly intact. No evidence of any neurological deficits on exam. SKIN: Intact. Warm to touch. Good cap refill. PSYCHIATRIC: Normal affect and mood. EXTREMITIES: No edema. Good range of motion throughout. IMPRESSION: 1. Severe sepsis secondary to urinary tract infection with leukocytosis, lactic acidosis. All cultures found to be negative. Antibiotics being managed by ID. 2. Stage IV sacral wound. 3. Severe protein-calorie malnutrition. 4. Stage IV uterine cancer with metastasis. 5. Generalized weakness and medical debilitation. 6. Bilateral hydronephrosis with ureteral stents with hematuria, status post performed on 12/20/2018, with bilateral ureteral stents removed with left ureteral stent exchange. 7. Acute kidney injury, now presumed to be from postobstructive nephropathy. 8. Hypocalcemia. 9. Anemia of chronic disease as well as possible acute blood loss from hematuria. 10. Adjustment disorder with mixed mood. 11. Sinus tachycardia. 12. Hematuria, repeated. PLAN: 1. At this time, continue with IV antibiotics, which ID is following very closely. In relation to her electrolytes, it seems like she does have an acute rise in creatinine, but her electrolytes are stable. Her BUN is elevated at 71. Continue with daily dressing changes with wound care team as well as IV antibiotics. She now has new onset of repeat recurrent hematuria, which Urology has been reconsulted and further evaluate. She is currently not on any specific blood thinners while here in the hospital stay. 2. We will get a.m. labs. Monitor closely. We notified Urology already for further evaluation and management. It sounds like rise in creatinine is likely due to postobstructive nephropathy. Get a.m. labs. MD CHASE Saravia/TALHA /[id number]
--- NOTE | 2018-12-26 20:40 | NUR ---
NEW COLOSTOMY BAG CHANGED. PATIENT TOLERATED WELL
[2018-12-26] MEDS: MELATONIN 5 MG TABLET PO SCH ×2 (21:00→21:04)
[2018-12-27] VITALS (9 sets, daily range): BP systolic 116–151; BP diastolic 65–85
[2018-12-27] MEDS: HYDROMORPHONE 2MG/ML 2 MG/ML ML IV PRN ×5 (00:09→23:46)
[2018-12-27] MEDS: OXYCODONE/ACETAMINOPHEN 5-325 1 EACH TABLET PO PRN ×3 (02:07→17:31)
[2018-12-27] MEDS: ACETAMINOPHEN 325 MG TAB PO PRN ×2 (02:42→21:15)
[2018-12-27] MEDS: SODIUM CHLORIDE 0.9% 1000ML 1,000 ML IV SCH ×3 (04:45→21:33)
[2018-12-27 05:04] LABS: BASOPHILS % 0.2 % (0.0-1.0); EOSINOPHILS # (AUTO) 0.3 (0.0-0.4); EOSINOPHILS % 1.5 % (0.0-6.0); LYMPHOCYTES # (AUTO) 2.3 (1.0-3.2); LYMPHOCYTES % 12.1 % (18.0-39.1); MEAN CORPUSCULAR HEMOGLOBIN 24.2 pg (28-32); MEAN CORPUSCULAR HGB CONC 30.6 g/dL (31-35); MEAN CORPUSCULAR VOLUME 79.1 fL (81-99); MONOCYTES # (AUTO) 1.2 (0.2-0.8); MONOCYTES % 6.3 % (4.4-11.3); NEUTROPHILS # (AUTO) 14.7 (2.1-6.9); NEUTROPHILS % 79.3 % (38.7-80.0); PLATELET COUNT 425 x10e3/uL (140-360); RED BLOOD COUNT 2.77 x10e6/uL (3.6-5.1); RED CELL DISTRIBUTION WIDTH 16.8 % (11.7-14.4)
[2018-12-27 05:09] LABS: HEMATOCRIT 21.9 % (34.2-44.1); HEMOGLOBIN 6.7 g/dL (12.0-16.0)
[2018-12-27 05:22] LABS: ANION GAP 12.6 mmol/L (8-16); CALCIUM 9.2 mg/dL (8.4-10.2); CREATININE, SERUM 1.68 mg/dL (0.57-1.11); POTASSIUM 4.6 mmol/L (3.5-5.1)
[2018-12-27] MEDS: CYCLOBENZAPRINE HCL 10 MG TAB PO SCH ×3 (05:45→21:33)
--- NOTE | 2018-12-27 06:05 | NUR ---
NOTIFIED DR MARTINO ABOUT CRITICAL HGB 6.7 AND HCT 21.9. NO ORDER RECEIVED AT THIS TIME
[2018-12-27] MEDS: INSULIN REGULAR, HUMAN 100 UNIT/1 ML 3ML VIAL SQ SCH ×4 (07:21→20:58)
--- NOTE | 2018-12-27 07:52 | NUR ---
BEDSIDE SHIFT REPORT RECEIVED FROM JOSEFA FLOREZ. PT DENIES NEEDS AT THIS TIME.
[2018-12-27] MEDS: ASCORBIC ACID 500 MG TAB PO SCH (09:03)
[2018-12-27] MEDS: FAMOTIDINE 20 MG TAB PO SCH ×2 (09:03→17:28)
[2018-12-27] MEDS: VENLAFAXINE HCL 37.5MG XR CAP PO SCH (09:03)
[2018-12-27] MEDS: ZINC SULFATE 220 MG CAP PO SCH (09:03)
[2018-12-27] MEDS: MEGACE 400MG/ 10ML CUP PO SCH (09:03)
[2018-12-27] MEDS: VITAMIN E 400 UNIT CAP PO SCH (09:03)
[2018-12-27] MEDS: METOPROLOL TARTRATE 25 MG TAB PO SCH ×2 (09:03→21:33)
[2018-12-27] MEDS: MULTIVITAMINS/MINERALS TAB PO SCH (09:03)
--- NOTE | 2018-12-27 10:13 | NUR ---
CALLED AND SPOKE TO DR. PIMENTEL ABOUT HEMATURIA AND H&H. STATED THAT SHE WOULD NEED A NEPHROSTAMY TUBE PLACEMENT. SPOKE TO BRANDAN MANCINI COVERING FOR DR. SUH [place] . LIVE ORDERED 2 UNITS OF PRBC. LIVE NOT FOUND IN OUR ORDER LIST. CALLED DR. MARTINO WHO STATED TO PLACE THE ORDER FOR [address] SUH PER QASIM MISHRA RN.
[2018-12-27] MEDS ORDERED: SODIUM CHLORIDE 0.9% 250ML 250 ML IV ONE (10:30)
--- NOTE | 2018-12-27 11:30 | NUR ---
WOUND VAC DRESSING CHANGED AT THIS TIME. PT TOLERATED.
--- NOTE | 2018-12-27 14:57 | Progress Note ---
DATE: 12/27/2018 Medicine Progress Note SUBJECTIVE: The patient had significant amount of hematuria requiring blood transfusion this morning. PHYSICAL EXAMINATION: VITAL SIGNS: Temperature is 99.5, pulse 96, respiratory rate 22, blood pressure 120/72, pulse ox 96% on room air. GENERAL: In no acute distress. Alert and oriented x3. Cooperative on examination. HEENT: Head is normocephalic, atraumatic. Eyes; Pupils are equal, round, and reactive to light bilaterally. Extraocular movements are intact bilaterally. Throat; no evidence of any erythema or exudates in the posterior pharynx. Has poor dentition. NECK: Supple. Good range of motion. PULMONARY: Clear to auscultation bilaterally. No wheezing, no rales, no rhonchi, no crackles appreciated. CARDIOVASCULAR: Positive S1, S2. No murmurs, rubs, or gallops appreciated. ABDOMEN: Soft, nondistended, and nontender to palpation. Bowel sounds present. MUSCULOSKELETAL: Strength is 5/5 throughout. No evidence of any muscle deficits on examination. No weakness appreciated. NEUROLOGIC: Cranial nerves II through XII grossly intact. No evidence of any neurological deficits on exam. SKIN: Intact. Warm to touch. Good cap refill. PSYCHIATRIC: Normal affect and mood. EXTREMITIES: No edema. Good range of motion throughout. LABORATORY DATA: Lab findings show white count 18, hemoglobin 6.7, hematocrit 21.9, platelets of 425. Chemistry reviewed with creatinine of 1.68, BUN 57. IMPRESSION: 1. Severe sepsis secondary to urinary tract infection with leukocytosis, lactic acidosis with all negative cultures now improved and off IV antibiotics per ID recommendations. 2. Stage IV sacral wound. 3. Severe protein-calorie malnutrition. 4. Stage IV uterine cancer with metastasis. 5. Generalized weakness and medically debilitated. 6. Bilateral hydronephrosis with ureteral stents with hematuria, status post performed on 12/20/2018, with bilateral ureteral stents removed with left ureteral stent exchange, now with worsening hematuria. 7. Acute kidney injury, presumed to be from postobstructive nephropathy. 8. Hypocalcemia. 9. Anemia of chronic disease with underlying hematuria. 10. Adjustment disorder with mixed mood. 11. Sinus tachycardia. 12. Hematuria. PLAN: At this time, the patient is having active hematuria. We will go ahead and transfuse 2 units of packed RBCs. Continue with antibiotics as per ID recommendations. We will have the nursing staff communicate with the urologist. The patient may need a nephrostomy tube, which we can have Urology do. [facility], but she is not stable at this time to go. Otherwise, we will continue with same plan of care and monitor very closely. Get a.m. labs. MD CHASE Saravia/TALHA /[id number]
--- NOTE | 2018-12-27 16:57 | Progress Note ---
DATE: 12/27/2018 Psychiatric Progress Note SUBJECTIVE: The patient is evaluated and events noted. The patient is in the room. She is alert, awake, and oriented to situation. She reports feeling depressed. She denies any suicidal ideation. She denies any problem with sleep or appetite. She denies any hallucination. She denies any side effects from medications. Discussed with nursing staff, who reports that the patient's hemoglobin has been low. She is getting a unit of blood. She has not been getting up during therapy at times. ASSESSMENT: Adjustment disorder with mixed mood. PLAN: 1. Discontinue Effexor. 2. Continue melatonin. 3. Add Wellbutrin 75 mg p.o. daily. 4. Supportive therapy. 5. Monitor for mood. 6. Continue Neurontin. Dictated by Marilou Wells PA-C Dolly Mas MD QTV/MODL /[id number]
--- NOTE | 2018-12-27 20:30 | NUR ---
BLOOD TRANSFUSION COMPLETED. VITAL SIGN STABLE AT THIS TIME. NO S/S OF REACTION. CONTINUE TO MONITOR CLOSELY
[2018-12-27] MEDS: MELATONIN 5 MG TABLET PO SCH (21:33)
[2018-12-28] VITALS (7 sets, daily range): BP systolic 123–144; BP diastolic 59–91
[2018-12-28] MEDS: HYDROMORPHONE 2MG/ML 2 MG/ML ML IV PRN ×5 (03:15→22:01)
[2018-12-28] MEDS: OXYCODONE/ACETAMINOPHEN 5-325 1 EACH TABLET PO PRN (04:25)
[2018-12-28] MEDS: CYCLOBENZAPRINE HCL 10 MG TAB PO SCH ×3 (05:45→20:34)
[2018-12-28 06:10] LABS: BASOPHILS % 0.2 % (0.0-1.0); EOSINOPHILS # (AUTO) 0.2 (0.0-0.4); HEMATOCRIT 28.2 % (34.2-44.1); HEMOGLOBIN 9.1 g/dL (12.0-16.0); LYMPHOCYTES # (AUTO) 1.8 (1.0-3.2); LYMPHOCYTES % 10.2 % (18.0-39.1); MEAN CORPUSCULAR HEMOGLOBIN 25.6 pg (28-32); MEAN CORPUSCULAR HGB CONC 32.3 g/dL (31-35); MEAN CORPUSCULAR VOLUME 79.2 fL (81-99); MONOCYTES # (AUTO) 0.9 (0.2-0.8); NEUTROPHILS # (AUTO) 14.6 (2.1-6.9); NEUTROPHILS % 82.9 % (38.7-80.0); PLATELET COUNT 438 x10e3/uL (140-360); RED BLOOD COUNT 3.56 x10e6/uL (3.6-5.1)
[2018-12-28 06:34] LABS: ANION GAP 16.5 mmol/L (8-16); CALCIUM 9.8 mg/dL (8.4-10.2); CREATININE, SERUM 1.64 mg/dL (0.57-1.11); POTASSIUM 4.5 mmol/L (3.5-5.1)
--- NOTE | 2018-12-28 07:00 | NUR ---
BEDSIDE SHIFT REPORT RECEIVED FROM METAL FORGER'S ASSISTANT RN. PT DENIES NEEDS AT THIS TIME.
[2018-12-28] MEDS: INSULIN REGULAR, HUMAN 100 UNIT/1 ML 3ML VIAL SQ SCH ×4 (07:30→21:00)
[2018-12-28] MEDS: SODIUM CHLORIDE 0.9% 1000ML 1,000 ML IV SCH ×2 (08:30→17:10)
[2018-12-28] MEDS: FAMOTIDINE 20 MG TAB PO SCH ×2 (08:57→17:10)
[2018-12-28] MEDS: BUPROPION HCL 75 MG TAB PO SCH (08:57)
[2018-12-28] MEDS: METOPROLOL TARTRATE 25 MG TAB PO SCH ×2 (08:57→20:34)
[2018-12-28] MEDS: MULTIVITAMINS/MINERALS TAB PO SCH (08:57)
[2018-12-28] MEDS: MEGACE 400MG/ 10ML CUP PO SCH (08:57)
[2018-12-28] MEDS: ZINC SULFATE 220 MG CAP PO SCH (08:57)
[2018-12-28] MEDS: ASCORBIC ACID 500 MG TAB PO SCH (08:57)
[2018-12-28] MEDS: VITAMIN E 400 UNIT CAP PO SCH (08:57)
[2018-12-28 16:33] LABS: INR 1.08; PROTHROMBIN TIME 14.5 seconds (11.9-14.5)
--- NOTE | 2018-12-28 20:09 | Progress Note ---
DATE: 12/28/2018 Medicine Progress Note SUBJECTIVE: The patient is still having hematuria and we discussed the case with Urology and he is recommending a nephrostomy tube. Order has been placed. We will need IR to place nephrostomy tube. OBJECTIVE: VITAL SIGNS: Temperature is 96.4, pulse 68, respiratory rate is 19, blood pressure 136/91, and pulse ox 98% on room air. GENERAL: Not in acute distress. Alert and oriented x3. Cooperative on examination. HEENT: Head is normocephalic and atraumatic. Eyes; pupils are equal, round, and reactive to light bilaterally. Extraocular movements intact bilaterally. Throat, no evidence of erythema or exudates in the posterior pharynx. Has poor dentition. NECK: Supple. Good range of motion. PULMONARY: Clear to auscultation bilaterally. No wheezing, no rales, no rhonchi, no crackles appreciated. CARDIOVASCULAR: Positive S1 and S2. No murmurs, rubs, or gallops appreciated. ABDOMEN: Soft, nondistended, and nontender to palpation. Bowel sounds present. MUSCULOSKELETAL: Strength is 5/5 throughout. No evidence of any muscle deficits on examination. No weakness appreciated. NEUROLOGIC: Cranial nerves II through XII are grossly intact. No evidence of any neurological deficits on exam. SKIN: Intact. Warm to touch. Good cap refill. PSYCHIATRIC: Normal affect and mood. EXTREMITIES: No edema. Good range of motion throughout. LABORATORY FINDINGS: Show white count of 17.5, hemoglobin 9.1, hematocrit is 28, MCV is 79, and platelets of 438. Coagulation; PT 14 and INR 1. Chemistry; sodium 138, potassium 4.5, chloride 107, bicarb 19, anion gap of 16, BUN 54, creatinine 1.64, glucose is 106, and calcium is 9.8. MICROBIOLOGY: All cultures were negative. IMPRESSION: 1. Severe sepsis secondary to urinary tract infection with leukocytosis and lactic acidosis with all cultures negative and off IV antibiotics. At this time, ID is following. 2. Stage IV sacral wound. 3. Severe protein-calorie malnutrition. 4. Stage IV uterine cancer with metastasis. 5. Generalized weakness and medically debilitated. 6. Bilateral hydronephrosis with ureteral stents with hematuria, status post bilateral ureteral stent removal with left ureteral stent exchange performed on 12/20/2018, now with worsening hematuria, scheduled to have a nephrostomy tube. 7. Acute kidney injury, presumed to be from postobstructive nephropathy. 8. Hypocalcemia. 9. Anemia of chronic disease with underlying hematuria. 10. Adjustment disorder with mixed mood. 11. Sinus tachycardia. 12. Hematuria. PLAN: At this time, the patient is scheduled to have a nephrostomy tube to be placed by Interventional Radiology. Her hemoglobin is better controlled after blood transfusion. Labs are stable. We will repeat labs in the morning. She has no symptoms at this time with talking to her friend at bedside with no other issues otherwise. MD CHASE Saravia/MODL /[id number]
[2018-12-28] MEDS: MELATONIN 5 MG TABLET PO SCH (20:34)
[2018-12-28] MEDS: GABAPENTIN 300 MG CAP PO SCH (20:34)
--- NOTE | 2018-12-28 22:00 | NUR ---
Wound vac dressing changed to the sacral area.
[2018-12-29] VITALS (8 sets, daily range): BP systolic 112–153; BP diastolic 69–88
[2018-12-29] MEDS: SODIUM CHLORIDE 0.9% 1000ML 1,000 ML IV SCH (02:35)
[2018-12-29] MEDS: HYDROMORPHONE 2MG/ML 2 MG/ML ML IV PRN ×3 (04:04→20:15)
[2018-12-29 04:08] LABS: BASOPHILS # (AUTO) 0.1 (0.0-0.1); BASOPHILS % 0.4 % (0.0-1.0); EOSINOPHILS # (AUTO) 0.2 (0.0-0.4); EOSINOPHILS % 1.5 % (0.0-6.0); HEMATOCRIT 27.7 % (34.2-44.1); LYMPHOCYTES # (AUTO) 2.5 (1.0-3.2); LYMPHOCYTES % 17.1 % (18.0-39.1); MEAN CORPUSCULAR HEMOGLOBIN 25.9 pg (28-32); MEAN CORPUSCULAR HGB CONC 32.5 g/dL (31-35); MEAN CORPUSCULAR VOLUME 79.6 fL (81-99); MONOCYTES % 6.6 % (4.4-11.3); NEUTROPHILS # (AUTO) 10.6 (2.1-6.9); NEUTROPHILS % 73.7 % (38.7-80.0); PLATELET COUNT 459 x10e3/uL (140-360); RED BLOOD COUNT 3.48 x10e6/uL (3.6-5.1); RED CELL DISTRIBUTION WIDTH 16.8 % (11.7-14.4)
[2018-12-29 04:28] LABS: ANION GAP 15.5 mmol/L (8-16); CALCIUM 9.7 mg/dL (8.4-10.2); CREATININE, SERUM 1.7 mg/dL (0.57-1.11); POTASSIUM 4.5 mmol/L (3.5-5.1)
[2018-12-29] MEDS: GABAPENTIN 300 MG CAP PO SCH ×3 (05:49→21:54)
[2018-12-29] MEDS: CYCLOBENZAPRINE HCL 10 MG TAB PO SCH ×3 (05:49→21:54)
[2018-12-29] MEDS: INSULIN REGULAR, HUMAN 100 UNIT/1 ML 3ML VIAL SQ SCH ×4 (07:30→21:56)
--- NOTE | 2018-12-29 07:30 | NUR ---
REC'D PT AAOX3, LAYING IN SEMI-NEWMAN'S POSITION, COLOSTOMY TO LEFT LOWER SIDE, STAGE 4 TO THE SACRUM AND HAS WOUND VAC, TELE #13 RUNNING AT [facility], RIGHT UPPER ARM PICC LINE ON FLUIDS AND SITE IS CLEAN AND INTACT. BED IN LOWEST POSITION, SIDE RAILS UP X2, AND CALL NORMAN WITHIN REACH.
[2018-12-29] MEDS: BUPROPION HCL 75 MG TAB PO SCH (08:31)
[2018-12-29] MEDS: METOPROLOL TARTRATE 25 MG TAB PO SCH ×2 (08:31→21:54)
[2018-12-29] MEDS: MULTIVITAMINS/MINERALS TAB PO SCH (08:38)
[2018-12-29] MEDS: FAMOTIDINE 20 MG TAB PO SCH ×2 (08:38→16:26)
[2018-12-29] MEDS: VITAMIN E 400 UNIT CAP PO SCH (08:38)
[2018-12-29] MEDS: ASCORBIC ACID 500 MG TAB PO SCH (08:38)
[2018-12-29] MEDS: ZINC SULFATE 220 MG CAP PO SCH (08:38)
[2018-12-29] MEDS: MEGACE 400MG/ 10ML CUP PO SCH (08:38)
--- NOTE | 2018-12-29 09:52 | NUR ---
PATIENT TAKEN DOWN FOR PROCEDURE. Addendum: 12/29/18 at 0959 by DANIEL ALCALA RN CONSENT HAS BEEN SIGNED BY PATIENT.
[2018-12-29] MEDS ORDERED: LIDOCAINE HCL 2% LOCAL 20 ML VIAL ONE (10:12)
[2018-12-29] MEDS ORDERED: MIDAZOLAM HCL 2 MG/2 ML VIAL ONE (10:12)
[2018-12-29] MEDS ORDERED: FENTANYL CITRATE/PF 100MCG/2 ML INJ ONE (10:12)
[2018-12-29] MEDS ORDERED: IOPAMIDOL 370 MG/ML 200 ML INFUS..BTL INJ ONE (10:13)
[2018-12-29] MEDS ORDERED: SODIUM CHLORIDE 0.9% 1000ML 1,000 ML ONE ×2 (10:13→16:01)
[2018-12-29] MEDS ORDERED: SODIUM CHLORIDE 0.9% 500ML 500 ML ONE (10:14)
--- NOTE | 2018-12-29 11:00 | NUR ---
REC'V REPORT FROM ANTOINE FROM SOIL SCIENCE PROFESSOR. CHOLEHEXIDINE DRESSING OVER THE NEPHROSTOMY TUBE INSERTION. ORDERS WERE TO JUST CON'T MONITORING DRAINAGE.
--- NOTE | 2018-12-29 11:30 | NUR ---
REC'D PATIENT BACK FROM PROCEDURE IN CONCESSIONS MANAGER. CHANGED BRIEF AND COLLECTED VITAL SIGNS. PATIENT IS STABLE. REPOSITIONED PATIENT ON LEFT SIDE. BED IN LOWEST POSITION, SIDE RAILS UP X2, AND BED IN LOWEST POSITION.
--- NOTE | 2018-12-29 14:14 | Progress Note ---
DATE: 12/29/2018 Medicine Progress Note Today, the patient had her nephrostomy tube on the right side placed by IR. She is otherwise doing well. Pain is well controlled. PHYSICAL EXAMINATION: VITAL SIGNS: Temperature is 96.6, pulse 76, respiratory rate 19, blood pressure 151/81, and pulse ox 98% on room air. GENERAL: Not in acute distress. Alert and oriented x3. Cooperative on examination. HEENT: Head is normocephalic and atraumatic. Eyes; pupils are equal, round, and reactive to light bilaterally. Extraocular movements are intact bilaterally. Throat; no evidence of erythema or exudates in the posterior pharynx. Has poor dentition. NECK: Supple. Good range of motion. PULMONARY: Clear to auscultation bilaterally. No wheezing, no rales, no rhonchi, no crackles appreciated. CARDIOVASCULAR: Positive S1 and S2. No murmurs, rubs, or gallops appreciated. ABDOMEN: Soft, nondistended, and nontender to palpation. Bowel sounds present. MUSCULOSKELETAL: Strength is 5/5 throughout. No evidence of any muscle deficits on examination. No weakness appreciated. NEUROLOGIC: Cranial nerves II through XII were grossly intact. No evidence of any neurological deficits on exam. SKIN: Intact. Warm to touch. Good cap refill. PSYCHIATRIC: Normal affect and mood. EXTREMITIES: No edema. Good range of motion throughout. LAB FINDINGS: White count 14.3, hemoglobin 9, hematocrit is 27, and platelets of 459. Chemistries were reviewed. Sodium 135, potassium 4.5, chloride 106, bicarb 18, anion gap of 15, BUN is 51, creatinine 4.7, glucose is 104, calcium is 9.7. Urinalysis reviewed. IMPRESSION: 1. Severe sepsis secondary to urinary tract infection with leukocytosis diagnosis and lactic acidosis with all cultures found to be negative, off IV antibiotics as per ID recommendations. 2. Stage IV sacral wound. 3. Severe protein-calorie malnutrition. 4. Stage IV uterine cancer with metastasis, very poor prognosis. 5. Generalized weakness and medically debilitated. 6. Bilateral hydronephrosis with ureteral stents with hematuria, status post bilateral ureteral stent removal with left ureteral stent exchange performed on 12/20/2018, now with worsening hematuria, status post nephrostomy tube on the right side placed on 12/29/2018. 7. Acute kidney injury secondary to postobstructive nephropathy. 8. Hypocalcemia. 9. Anemia of chronic disease with underlying hematuria. 10. Adjustment disorder with mixed mood. 11. Sinus tachycardia. 12. Hematuria. PLAN: At this time, she has already had a nephrostomy tube placed on the right side. We are going to monitor it very closely. Get a.m. labs. Likely discharge tomorrow back to new group home facility tomorrow. I must monitor the hemoglobin before she leaves. This is an interventional procedure and I must make sure that she is not actively bleeding. If her hemoglobin is stable and her electrolytes are good, she is going to be discharged and she will be discharged to group home facility. MD CHASE Saravia/TALHA /[id number]
--- NOTE | 2018-12-29 15:06 | NUR ---
PATIENT DISCHARGE DISPOSITION: PATIENT TRANSFERRING TO SKILLED FACILITY PLACEMENT: [facility] Address: [address], [place] [address] Reed Cleaner: Omkar Ding PATIENT TO DISCHARGE TOMORROW 12/30 IF MORNING LABS STABLE PER MD.
--- NOTE | 2018-12-29 15:57 | NUR ---
ERROL spoke with Sydni with admissions at [facility] who stated that auth has and will need to be restarted. Anticipating auth on Tuesday. Dr. Bean was notified.
--- NOTE | 2018-12-29 17:02 | Diagnostic Imaging Report ---
Procedure: Right percutaneous nephrostomy Indication: Patient with uterine cancer who had bilateral ureteral stents. Left one was changed without incident. Right one was removed and a new ureteral stent could not be placed. Medications: Versed 2 mg intravenous, Fentanyl 100 mcg intravenous. The patient's vital signs, including pulse oximetry, were continuously monitored by the interventional radiology nurse. Fluoroscopy time: 5.0 minutes. Dose area product: 1811.8 cGycm2 Contrast used: None Estimated blood loss: Less than 5 cc Complications: No immediate. Procedure in detail: Patient was placed prone on the angiographic table. Local anesthesia with 1% Xylocaine was accomplished. Skinny needle was originally placed near the ureteral pelvic junction and contrast injection was accomplished. Utilizing fluoroscopic guidance a lower pole calyx was then entered with a 21-gauge skinny needle. This was followed by a 0.018 " wire and then a 6 Turkmen AccuStick sheath. Through the AccuStick sheath a 0.035 Amplatz superstiff wire was placed centrally. Dilatation over the wire with a 8 Turkmen Vijay dilator was accomplished. An 8 Turkmen Mobile loop locking pigtail APD catheter was then placed into the renal pelvis. This was secured to the skin with 3-0 Ethilon and placed to a drainage bag. Patient tolerated the procedure well. A nephroureteral stent or double-J ureteral stent can be placed at the later date after this tract is matured. Impression: Successful placement of a right percutaneous nephrostomy catheter. Signed by: Dr. Harris Menon DO on 12/29/2018 4:58 PM
--- NOTE | 2018-12-29 17:14 | Progress Note ---
DATE: 12/29/2018 SUBJECTIVE: The patient was evaluated and events noted. The patient is in the room. She is alert, awake, and oriented to situation. She states that she is doing better and less depressed and less anxious. She denies any hallucination. She denies any suicidal ideation. She states that she is sleeping well and eating well. She denies any side effects to medications. ASSESSMENT: Adjustment disorder with mixed mood. PLAN: 1. Continue Wellbutrin 75 mg p.o. daily. 2. Continue with melatonin. 3. Supportive therapy. 4. Monitor for mood. 5. Continue Neurontin. Dictated by Marilou Wells PA-C MD BHAVIN KelleyV/TALHA /[id number]
--- NOTE | 2018-12-29 18:55 | NUR ---
PATIENT DIAPER CHANGED AND PATIENT REPOSITIONED, WOUND VAC DRESSING INTACT, PATIENT ASSISTED IN CHANGING COLOSTOMY BAG. SIDE RAILS UP X2, CALL NORMAN WITHIN REACH, AND BED IN LOWEST POSITION.
[2018-12-29] MEDS: ACETAMINOPHEN 325 MG TAB PO PRN (19:50)
--- NOTE | 2018-12-29 20:15 | NUR ---
PATIENT HAS TEMPERATURE OF 100.5, TYLENOL ADMINISTERED ORDERED. ILEOSTOMY AND NEPHROSTOMY BAG EMPTIED, PATIENT HAS VAGINAL BLEED WITH LARGE CLOTS, SHE'S KEPT CLEAN AND DRY, REPOSITION FOR COMFORT. MEDICATED WITH DILAUDID FOR PAIN REQUESTED BY THE PATIENT, CALL LIGHT WITHIN EASY REACH, SHE'S INSTRUCTED TO CALL FOR ASSISTANCE NEEDED.
[2018-12-29] MEDS: MELATONIN 5 MG TABLET PO SCH (21:53)
[2018-12-30] VITALS (7 sets, daily range): BP systolic 104–137; BP diastolic 56–78
--- NOTE | 2018-12-30 00:14 | NUR ---
PATIENT IS SOUNDLY ASLEEP, NO RESPIRATORY DISTRESS OBSERVED. WOUND VAC INTACT, CALL LIGHT WITHIN EASY REACH.
[2018-12-30] MEDS: HYDROMORPHONE 2MG/ML 2 MG/ML ML IV PRN ×5 (02:13→20:45)
--- NOTE | 2018-12-30 02:14 | NUR ---
PATIENT C/O PAIN TO THE NEPHROSTOMY SITE AND WANTING DIAPER CHANGE. UPON ARRIVAL WITH THE PAIN MEDICATION, THE PATIENT HAD TAKEN OFF HER DIAPER THAT WAS SATURATED WITH BLOOD AND THROW IT ON THE FLOOR. SHE WAS EDUCATED NOT TO THROW THE SOIL DIAPER ON THE FLOOR FOR SAFETY REASONS. MEDICATED WITH DILAUDID FOR PAIN, KEPT CLEAN AND DRY. CALL LIGHT WITHIN EASY REACH, SHE'S INSTRUCTED TO CALL FOR ASSISTANCE NEEDED.
[2018-12-30 06:01] LABS: BASOPHILS # (AUTO) 0.1 (0.0-0.1); BASOPHILS % 0.4 % (0.0-1.0); EOSINOPHILS # (AUTO) 0.1 (0.0-0.4); EOSINOPHILS % 0.7 % (0.0-6.0); HEMATOCRIT 27.2 % (34.2-44.1); HEMOGLOBIN 8.6 g/dL (12.0-16.0); LYMPHOCYTES # (AUTO) 2.4 (1.0-3.2); LYMPHOCYTES % 14.3 % (18.0-39.1); MEAN CORPUSCULAR HEMOGLOBIN 25.7 pg (28-32); MEAN CORPUSCULAR HGB CONC 31.6 g/dL (31-35); MEAN CORPUSCULAR VOLUME 81.2 fL (81-99); MONOCYTES # (AUTO) 0.8 (0.2-0.8); MONOCYTES % 4.9 % (4.4-11.3); NEUTROPHILS # (AUTO) 13.4 (2.1-6.9); NEUTROPHILS % 79.2 % (38.7-80.0); PLATELET COUNT 511 x10e3/uL (140-360); RED BLOOD COUNT 3.35 x10e6/uL (3.6-5.1); RED CELL DISTRIBUTION WIDTH 17.3 % (11.7-14.4)
[2018-12-30 06:12] LABS: ANION GAP 14.6 mmol/L (8-16); CREATININE, SERUM 1.28 mg/dL (0.57-1.11); POTASSIUM 4.6 mmol/L (3.5-5.1)
[2018-12-30] MEDS: GABAPENTIN 300 MG CAP PO SCH ×3 (06:12→22:00)
[2018-12-30] MEDS: CYCLOBENZAPRINE HCL 10 MG TAB PO SCH ×3 (06:13→22:00)
[2018-12-30] MEDS: INSULIN REGULAR, HUMAN 100 UNIT/1 ML 3ML VIAL SQ SCH ×4 (07:30→20:44)
--- NOTE | 2018-12-30 07:30 | NUR ---
REC'D PATIENT AAOX3, OXYGEN BEING DELIVERED AT 2L/MIN, NO S/S OF DISTRESS. PATIENT C/O OF NEPHROSTOMY SITE PAIN. PATIENT REC'D PAIN MEDICATION. REPOSITIONED PATIENT UP IN BED AND TO HER LEFT SIDE. BED IN LOWEST POSITION, SIDE RAILS UP X2, AND CALL NORMAN WITHIN REACH.
--- NOTE | 2018-12-30 08:00 | NUR ---
DR. SUH PAGED TO CONFIRM IF HE WANTS UTERINE ARTERY EMBOLIZATION ROUTINE OR STAT. DR. SUH'S PA CALLED BACK AND STATED THAT IF HGB CAME BACK BELOW 7 THEN TO MAKE PROCEDURE STAT FOR TOMORROW. ORDERS CARRIED OUT. 1 UNIT OF BLOOD TO BE ADMINISTERED PER DR. SUH.
--- NOTE | 2018-12-30 08:09 | NUR ---
CALLED AND SPOKE WITH DR VIKASH BALLARD REGARDING THIS PATIENT'S ACTIVE VAGINAL BLEED. SHE ORDERED TO REPEAT CBC IN THE MORNING, SHE MAY HAVE TO BE TRANSFUSE IF H&H LESS THAN 7.0
[2018-12-30] MEDS ORDERED: SODIUM CHLORIDE 0.9% 250ML 250 ML IV ONE ×3 (09:00→17:30)
[2018-12-30] MEDS: METOPROLOL TARTRATE 25 MG TAB PO SCH ×2 (09:01→21:00)
[2018-12-30] MEDS: MEGACE 400MG/ 10ML CUP PO SCH (09:01)
[2018-12-30] MEDS: MULTIVITAMINS/MINERALS TAB PO SCH (09:02)
[2018-12-30] MEDS: BUPROPION HCL 75 MG TAB PO SCH (09:02)
[2018-12-30] MEDS: FAMOTIDINE 20 MG TAB PO SCH ×2 (09:02→16:05)
[2018-12-30] MEDS: VITAMIN E 400 UNIT CAP PO SCH (09:02)
[2018-12-30] MEDS: ASCORBIC ACID 500 MG TAB PO SCH (09:02)
[2018-12-30] MEDS: ZINC SULFATE 220 MG CAP PO SCH (09:02)
[2018-12-30] MEDS ORDERED: CEFEPIME 1GM/NS 0.9% 50 ML 50 ML IV SCH (10:00)
--- NOTE | 2018-12-30 11:30 | NUR ---
PATIENTS VAGINAL BLEEDING SUBSIDED. DR. MARTINO NOTIFIED TODAY THAT PATIENT WAS HAVING BLEEDING EPISODES WITH CLOTS YESTERDAY. WILL CON'T TO MONITOR PATIENT'S BLEEDING.
[2018-12-30] MEDS ORDERED: VANCOMYCIN 1GM/NS 250 ML 250 ML IV SCH (12:00)
[2018-12-30] MEDS ORDERED: SODIUM CHLORIDE 0.9% 1000ML 1,000 ML ONE (12:05)
--- NOTE | 2018-12-30 14:00 | NUR ---
CONSENT SIGNED BY PATIENT FOR ONE UNIT OF BLOOD FOR TRANSFUSION.
--- NOTE | 2018-12-30 14:38 | Progress Note ---
DATE: 12/30/2018 SUBJECTIVE: The patient apparently has been having some vaginal bleeding now that occurred last night. Hematology was notified. The patient will receive a blood transfusion later today. If the patient continues to have vaginal bleeding, Hematology suggesting IR to do a uterine artery embolectomy. Currently, she does not have any vaginal bleeding during my evaluation. PHYSICAL EXAMINATION: VITAL SIGNS: Temperature is 98.1, pulse 90, respiratory rate is 20, blood pressure 112/64, and pulse ox 97% on 2 liters nasal cannula. GENERAL: Not in acute distress. Alert and oriented x3. Cooperative on examination. HEENT: Head is normocephalic and atraumatic. Eyes; pupils are equal, round, and reactive to light bilaterally. Extraocular movements are intact bilaterally. Throat, no evidence of any erythema or exudates in the posterior pharynx. Has poor dentition. NECK: Supple. Good range of motion. PULMONARY: Clear to auscultation bilaterally. No wheezing, no rales, no rhonchi, no crackles appreciated. CARDIOVASCULAR: Positive S1 and S2. No murmurs, rubs, or gallops appreciated. ABDOMEN: Soft, nondistended, and nontender to palpation. Bowel sounds present. MUSCULOSKELETAL: Strength is 5/5 throughout. No evidence of any muscle deficits on examination. No weakness appreciated. NEUROLOGIC: Cranial nerves II through XII are grossly intact. No evidence of any neurological deficits on exam. SKIN: Intact. Warm to touch. Good cap refill. PSYCHIATRIC: Normal affect and mood. EXTREMITIES: No edema. Good range of motion throughout. LAB FINDINGS: Show white count is 16.8, hemoglobin 8.6, hematocrit 27, and platelet is 511. Chemistry; sodium 140, potassium 4.6, chloride 113, bicarb 17, anion gap of 14, BUN 36, creatinine is 1.2, and calcium is 10. Blood cultures repeated today x2. Did have a low-grade fever . Rest of the cultures no growth. IMAGING STUDIES: None. IMPRESSION: 1. Severe sepsis secondary to urinary tract infection with leukocytosis, with lactic acidosis, with all negative cultures, off antibiotics, now currently doing much better with a low-grade fever last night with repeat blood cultures performed by ID. 2. Stage IV sacral wound. 3. Severe protein-calorie malnutrition. 4. Stage IV uterine cancer with metastasis, very poor prognosis, now with vaginal bleeding. 5. Generalized weakness and medically debilitated. 6. Bilateral hydronephrosis with ureteral stents with hematuria, status post bilateral ureteral stent removal with left ureteral stent exchange performed on 12/20/2018, now with worsening hematuria, status post nephrostomy tube placed on the right side on 12/29/2018 with much improvement. 7. Acute kidney injury secondary to postobstructive nephropathy. 8. Hypocalcemia. 9. Anemia of chronic disease with underlying hematuria and vaginal bleeding. 10. Adjustment disorder with mixed mood. 11. Sinus tachycardia. PLAN: At this time, she is currently doing well. Her pain was not controlled and now she has started on methadone by Pain Management. She is now having some vaginal bleeding, but currently during my evaluation that has been resolved. She will receive a blood transfusion though her hemoglobin is stable from yesterday. In the event, she continues to have vaginal bleeding, she will likely need uterine artery embolization as per Hematology recommendations. At this time, we will continue same plan of care. Monitor her labs very closely. Monitor the new repeat blood cultures. She lost authorization for [facility], will likely reapply on Tuesday. She will hopefully be discharged to [facility] later next week. MD CHASE Saravia/TALHA /[id number]
[2018-12-30] MEDS: CEFEPIME 1GM/NS 0.9% 50 ML 50 ML IV SCH (15:51)
[2018-12-30] MEDS: METHADONE HCL 10 MG TAB PO SCH (16:05)
[2018-12-30] MEDS ORDERED: SODIUM CHLORIDE 0.9% 250ML 250 ML ONE (17:04)
--- NOTE | 2018-12-30 17:10 | NUR ---
PRIOR TO VERIFYING CORRECT PATIENT WITH SECOND NURSE AND ADMINISTERING BLOOD, TEMPERATURE WAS 101.4 F. CHECKED TEMP AGAIN AND IT WAS 100.[address] MARTINO ABOUT TEMPERATURE. DR. MARTINO ORDERED TO ADMINISTER TYLENOL AND TO WAIT TILL TONIGHT TO SEE WHAT HER TEMPERATURE IS. BLOOD PRODUCTS AND SUPPLIES RETURNED TO LAB. WILL NOTIFY ROOF PANEL HANGER NURSE. Addendum: 12/30/18 at 1746 by DANIEL ALCALA RN AFTER VERIFYING CORRECT PATIENT WITH SECOND NURSE AND ADMINISTERING BLOOD, TEMPERATURE WAS 101.4 F. CHECKED TEMP AGAIN AND IT WAS 100.4. NOTIFIED DR. MARTINO ABOUT TEMPERATURE. DR. MARTINO ORDERED TO HOLD BLOOD TRANSFUSION, ADMINISTER TYLENOL, AND TO WAIT TILL TONIGHT TO SEE WHAT HER TEMPERATURE IS. ALSO STATED THAT IF TEMPERATURE IS NORMAL, THEN CAN ADMINISTER. 1 UNIT OF BLOOD AND SUPPLIES RETURNED. NEW ORDER PLACED FOR 1 UNIT OF BLOOD. WILL NOTIFY ROOF PANEL HANGER NURSE.
[2018-12-30] MEDS: ACETAMINOPHEN 325 MG TAB PO PRN ×2 (17:23→19:07)
[2018-12-30] MEDS: VANCOMYCIN 1GM/NS 250 ML 250 ML IV SCH (17:48)
--- NOTE | 2018-12-30 18:50 | NUR ---
GAVE REPORT TO ATTACHE NURSE. STATED TO HER DR. MARTINO'S ORDERS REGARDING PATIENT'S TEMPERATURE INTERRUPTING BLOOD TRANSFUSION PROCESS. PATIENT IS IN BED IN SEMI-NEWMAN'S POSITION, FLUIDS RUNNING AT 60 ML/HR, ON ROOM AIR, NO S/S OF DISTRESS, AND RIGHT UPPER PICC LINE CLEAN AND INTACT.
[2018-12-30] MEDS: MELATONIN 5 MG TABLET PO SCH (20:44)
--- NOTE | 2018-12-30 20:45 | NUR ---
PATIENT HAS A TEMPERATURE OF 100.7, SHE WAS MEDICATED WITH TYLENOL FOR ELEVATED TEMPERATURE 3HOURS AGO. SHE C/O PAIN TO THE RIGHT NEPHROSTOMY SITE WITH PAIN SCORE #9, MEDICATED WITH DILAUDID ORDERED. CALL LIGHT WITHIN EASY REACH, NO RESPIRATORY DISTRESS OBSERVED.
[2018-12-31] VITALS (7 sets, daily range): BP systolic 100–147; BP diastolic 56–80
[2018-12-31] MEDS ORDERED: SODIUM CHLORIDE 0.9% 250ML 250 ML ONE ×2 (00:08→11:28)
--- NOTE | 2018-12-31 01:07 | NUR ---
BLOOD TRANSFUSING ORDERED, PRIMARY NURSE STAYED WITH THE PATIENT FOR THE FIRST 15 MINUTE PER PROTOCOL. PATIENT IS SOUNDLY ASLEEP, SHE'S EASY TO AROUSE. NO RESPIRATORY DISTRESS OBSERVED AND SHE DENIES PAIN AT THIS TIME. WILL CONTINUE TO CLOSELY MONITOR.
--- NOTE | 2018-12-31 03:05 | NUR ---
MODERATE AMOUNT OF VAGINAL BLEEDING NOTED, PATIENT KEPT CLEAN AND DRY. DRESSING SOIL AT THE NEPHROSTOMY SITE, THE DRESSING REMOVED, SITE CLEANSE AND CENTRAL LINE DRESSING APPLIED TO THE SITE. BLOOD INFUSING WITHOUT ADVERSE EFFECT, VITAL SIGNS STABLE.
[2018-12-31] MEDS: CEFEPIME 1GM/NS 0.9% 50 ML 50 ML IV SCH ×2 (04:21→15:20)
[2018-12-31] MEDS: ACETAMINOPHEN 325 MG TAB PO PRN ×2 (04:22→11:01)
--- NOTE | 2018-12-31 04:23 | NUR ---
BLOOD TRANSFUSION COMPLETED WITHOUT ADVERSE EFFECT, PATIENT C/O PAIN TO THE NEPHROSTOMY SITE, MEDICATED WITH TYLENOL ORDERED.
[2018-12-31] MEDS: VANCOMYCIN 1GM/NS 250 ML 250 ML IV SCH ×2 (04:55→20:20)
[2018-12-31] MEDS: CYCLOBENZAPRINE HCL 10 MG TAB PO SCH ×3 (06:22→21:16)
[2018-12-31] MEDS: GABAPENTIN 300 MG CAP PO SCH ×3 (06:22→21:16)
[2018-12-31] MEDS: INSULIN REGULAR, HUMAN 100 UNIT/1 ML 3ML VIAL SQ SCH ×4 (07:30→20:50)
--- NOTE | 2018-12-31 07:30 | NUR ---
REC'D PT AAOX3, PATIENT HAS MODERATE SOAKED BRIEF FROM VAGINAL BLEEDING. PATIENT BRIEF CHANGED AND CLEANED. FLUIDS RUNNING AT 100 ML/HR, RIGHT UPPER PICC LINE CLEAN AND INTACT. ON ROOM AIR AND NO S/S OF DISTRESS. SIDE RAILS UP X2, CALL NORMAN WITHIN REACH, AND BED IN LOWEST POSITION.
[2018-12-31 07:59] LABS: BASOPHILS # (AUTO) 0.1 (0.0-0.1); BASOPHILS % 0.3 % (0.0-1.0); EOSINOPHILS # (AUTO) 0.1 (0.0-0.4); EOSINOPHILS % 0.5 % (0.0-6.0); HEMOGLOBIN 7.6 g/dL (12.0-16.0); LYMPHOCYTES # (AUTO) 1.8 (1.0-3.2); LYMPHOCYTES % 9.9 % (18.0-39.1); MEAN CORPUSCULAR HEMOGLOBIN 26.5 pg (28-32); MEAN CORPUSCULAR HGB CONC 32.6 g/dL (31-35); MEAN CORPUSCULAR VOLUME 81.2 fL (81-99); MONOCYTES # (AUTO) 1.1 (0.2-0.8); MONOCYTES % 5.9 % (4.4-11.3); NEUTROPHILS # (AUTO) 15.3 (2.1-6.9); NEUTROPHILS % 82.8 % (38.7-80.0); PLATELET COUNT 431 x10e3/uL (140-360); RED BLOOD COUNT 2.87 x10e6/uL (3.6-5.1)
--- NOTE | 2018-12-31 08:00 | NUR ---
PATIENT HAD ONE MODERATE SOAKED BRIEF OF VAGINAL BLOOD. LEFT BRIEF IN ROOM TO SHOW DR. MARTINO.
[2018-12-31 08:05] LABS: HEMATOCRIT 23.3 % (34.2-44.1)
[2018-12-31 08:21] LABS: ANION GAP 12.9 mmol/L (8-16); CALCIUM 9.3 mg/dL (8.4-10.2); CREATININE, SERUM 1.17 mg/dL (0.57-1.11); POTASSIUM 3.9 mmol/L (3.5-5.1)
--- NOTE | 2018-12-31 08:30 | NUR ---
LAB NOTIFIED HGB OF 7.6 AND HCT OF 23.3. PAGED DR. SUH'S PA, IFTIKHAR DE LA TORRE ABOUT LAB RESULTS. PA CALLED BACK AND EXPLAINED LAB RESULTS AND GAVE ORDERS TO ADMINISTERS 2 UNITS OF PRBCS AND TO CONSULT IR TO COME SEE HER FOR POSSIBLE UTERINE ARTERY EMBOLIZATION.
[2018-12-31] MEDS: MEGACE 400MG/ 10ML CUP PO SCH (09:28)
[2018-12-31] MEDS: METOPROLOL TARTRATE 25 MG TAB PO SCH ×2 (09:28→21:16)
[2018-12-31] MEDS: BUPROPION HCL 75 MG TAB PO SCH (09:29)
[2018-12-31] MEDS: MULTIVITAMINS/MINERALS TAB PO SCH (09:29)
[2018-12-31] MEDS: METHADONE HCL 10 MG TAB PO SCH ×2 (09:29→18:05)
[2018-12-31] MEDS: VITAMIN E 400 UNIT CAP PO SCH (09:29)
[2018-12-31] MEDS: FAMOTIDINE 20 MG TAB PO SCH ×2 (09:29→18:05)
[2018-12-31] MEDS: ZINC SULFATE 220 MG CAP PO SCH (09:29)
[2018-12-31] MEDS: ASCORBIC ACID 500 MG TAB PO SCH (09:29)
[2018-12-31] MEDS: HYDROMORPHONE 2MG/ML 2 MG/ML ML IV PRN ×3 (09:32→20:20)
--- NOTE | 2018-12-31 10:00 | NUR ---
NOTIFIED DR. MARTINO ABOUT LAB WORK HGB AND HCT. ALSO NOTIFIED ABOUT DR. SUH'S PA ORDERS OF 2 UNITS OF BLOOD AND IR CONSULT FOR A UTERINE ARTERY EMBOLIZATION. NO OTHER ORDERS GIVEN BY DR. MARTINO.
[2018-12-31] MEDS ORDERED: SODIUM CHLORIDE 0.9% 250ML 250 ML IV ONE (11:00)
--- NOTE | 2018-12-31 11:50 | NUR ---
IR PHYSICIAN, DR. STEPHANIE MARQUEZ CAME TO TALK AND EXPLAIN TO PATIENT ABOUT THE UTERINE ARTERY EMBOLIZATION THAT IS PLANNED TO TAKE PLACE TOMORROW. PATIENT AGREED TO PROCEDURE. WILL GET CONSENT FOR PATIENT.
--- NOTE | 2018-12-31 11:56 | NUR ---
SECOND NURSE IN ROOM TO VERIFY CORRECT PATIENT PRIOR TO BLOOD TRANSFUSION. EXPLAINED SIDE EFFECTS TO PATIENT AND TO LET NURSE KNOW IF EXPERIENCE ANY. BLOOD TRANSFUSION STARTED. WILL STAY WITH PATIENT FOR 15 MINUTES. BED IN LOWEST POSITION, SIDE RAILS UP X2, AND CALL NORMAN WITHIN REACH.
--- NOTE | 2018-12-31 12:30 | NUR ---
WOUND VAC PERFORMED ON PATIENT. SETTINGS ON WOUND VAC MACHINE ARE INSERTED. PATIENT TOLERATED WELL. SIDE RAILS UPX2, CALL NORMAN WITHIN REACH, AND BED IN LOWEST POSITION.
--- NOTE | 2018-12-31 13:26 | NUR ---
PATIENT TOLERATING BLOOD TRANSFUSION WELL. SIDE RAILS UP X2, CALL NORMAN WITHIN REACH, AND BED IN LOWEST POSITION. WILL CON'T TO MONITOR PATIENT AND VITAL SIGNS.
--- NOTE | 2018-12-31 14:22 | NUR ---
PATIENT SIGNED CONSENT FOR PROCEDURE TOMORROW.
--- NOTE | 2018-12-31 14:25 | NUR ---
1 UNIT OUT OF 2 OF BLOOD TRANSFUSION COMPLETED. PATIENT TOLERATED WELL, VITAL SIGNS STABLE. 2ND UNIT OF BLOOD TO CONTINUE.
--- NOTE | 2018-12-31 15:45 | NUR ---
VERIFIED CORRECT PATIENT APPROPRIATELY. 2ND BAG OF BLOOD STARTED. REMAINED WITH PATIENT FOR FIRST 15 MINUTES. SIDE RAILS UP X2, CALL NORMAN WITHIN REACH, AND BED IN LOWEST POSITION.
--- NOTE | 2018-12-31 16:27 | Progress Note ---
DATE: 12/31/2018 Medicine Progress Note SUBJECTIVE: The patient is still having vaginal bleeding and decreased hemoglobin level today. She is receiving 2 units of blood ordered by Hematology. No overnight events. PHYSICAL EXAMINATION: VITAL SIGNS: Temperature is 97.9, T-max 100.7. She is currently back on IV antibiotics, pulse 87, respiratory rate is 20, blood pressure 161/64, pulse ox 99% on room air. GENERAL: Not in acute distress. Alert and oriented x3. Cooperative on examination. HEENT: Head is normocephalic and atraumatic. Eyes; pupils are equal, round, and reactive to light bilaterally. Extraocular movements are intact bilaterally. Throat, no evidence of any erythema or exudates in the posterior pharynx. Has poor dentition. NECK: Supple. Good range of motion. PULMONARY: Clear to auscultation bilaterally. No wheezing, no rales, no rhonchi, no crackles appreciated. CARDIOVASCULAR: Positive S1 and S2. No murmurs, rubs, or gallops appreciated. ABDOMEN: Soft, nondistended, and nontender to palpation. Bowel sounds present. MUSCULOSKELETAL: Strength is 5/5 throughout. No evidence of any muscle deficits on examination. No weakness appreciated. NEUROLOGIC: Cranial nerves II through XII are grossly intact. No evidence of any neurological deficits on exam. SKIN: Intact. Warm to touch. Good cap refill. PSYCHIATRIC: Normal affect and mood. EXTREMITIES: No edema. Good range of motion throughout. LABORATORY DATA: Lab findings show white count of 18.5, hemoglobin in 10.6, hematocrit 23, platelets of 431. Coagulation normal. Chemistry; sodium 139, potassium 3.9, chloride 113, bicarb 17, anion gap 12, BUN 30, creatinine 1.17, glucose is 121, calcium 9.3. MICROBIOLOGY: Blood cultures repeat shows no growth today. IMPRESSION: 1. Severe sepsis with leukocytosis, lactic acidosis all improved with negative cultures now. Restarted back on IV antibiotics due to a low-grade fever. We will repeat blood cultures . ID is following. 2. Stage IV sacral wound. 3. Severe protein-calorie malnutrition. 4. Stage IV uterine cancer with metastasis now with vaginal bleeding. Very poor prognosis. 5. Generalized weakness and medically debilitated. 6. Bilateral hydronephrosis with ureteral stents with hematuria status post bilateral ureteral stent removal with left ureteral stent exchange performed on 12/20/2018 with worsening hematuria status post nephrostomy tube placed on the right side on 12/29/2018 much improved. 7. Acute kidney injury secondary to postobstructive nephropathy, improving. 8. hypocalcemia. 9. Anemia of chronic disease with underlying hematuria, vaginal bleeding. 10. Adjustment disorder with mood. 11. Sinus tachycardia. PLAN: At this time, she continues to have vaginal bleeding and 2 units of blood have been ordered. Hematology has consulted IR to do a uterine artery embolization, which will likely occur tomorrow. DVT labs in the morning. Pain is well controlled. Continue with IV antibiotics as per ID. Monitor cultures. The patient's prognosis is very poor. She continues to refuse hospice. We will continue same plan of care. MD CHASE Saravia/TALHA /[id number]
--- NOTE | 2018-12-31 18:30 | NUR ---
PATIENT IS IN BED TALKING TO FRIEND. BLOOD RUNNING AND PATIENT TOLERATING WELL. VITAL SIGNS STABLE. NO S/S OF DISTRESS. SIDE RAILS UP X2, CALL NORMAN WITHIN REACH, AND BED IN LOWEST POSITION.
--- NOTE | 2018-12-31 18:42 | NUR ---
BLOOD TRANSFUSION FINISHED. PATIENT TOLERATED WELL. PICC LINE FLUSHED. VITAL SIGNS STABLE. SIDE RAILS UPX2, CALL NORMAN WITHIN REACH, AND BED IN LOWEST POSITION.
--- NOTE | 2018-12-31 20:35 | NUR ---
NEW ILEOSTOMY BAG CHANGED
[2018-12-31] MEDS: MELATONIN 5 MG TABLET PO SCH (21:16)
[2019-01-01] VITALS (7 sets, daily range): BP systolic 110–151; BP diastolic 61–78
[2019-01-01] MEDS: CEFEPIME 1GM/NS 0.9% 50 ML 50 ML IV SCH ×2 (03:13→15:52)
[2019-01-01] MEDS: SODIUM CHLORIDE 0.9% 1000ML 1,000 ML IV SCH ×3 (03:54→17:35)
[2019-01-01] MEDS: GABAPENTIN 300 MG CAP PO SCH ×3 (05:26→20:55)
[2019-01-01] MEDS: CYCLOBENZAPRINE HCL 10 MG TAB PO SCH ×3 (05:26→20:55)
[2019-01-01 06:39] LABS: BASOPHILS # (AUTO) 0.1 (0.0-0.1); BASOPHILS % 0.4 % (0.0-1.0); EOSINOPHILS # (AUTO) 0.2 (0.0-0.4); EOSINOPHILS % 1.9 % (0.0-6.0); HEMATOCRIT 30.8 % (34.2-44.1); HEMOGLOBIN 10.4 g/dL (12.0-16.0); LYMPHOCYTES # (AUTO) 1.5 (1.0-3.2); LYMPHOCYTES % 12.9 % (18.0-39.1); MEAN CORPUSCULAR HEMOGLOBIN 27.5 pg (28-32); MEAN CORPUSCULAR HGB CONC 33.8 g/dL (31-35); MEAN CORPUSCULAR VOLUME 81.5 fL (81-99); MONOCYTES % 8.1 % (4.4-11.3); NEUTROPHILS # (AUTO) 9.1 (2.1-6.9); NEUTROPHILS % 76.1 % (38.7-80.0); PLATELET COUNT 422 x10e3/uL (140-360); RED BLOOD COUNT 3.78 x10e6/uL (3.6-5.1); RED CELL DISTRIBUTION WIDTH 16.8 % (11.7-14.4)
[2019-01-01 06:59] LABS: ANION GAP 13.8 mmol/L (8-16); BLOOD UREA NITROGEN 37 mg/dL (7-26); BUN/CREATININE RATIO 41 (6-25); CALCIUM 9.1 mg/dL (8.4-10.2); CARBON DIOXIDE 15 mmol/L (22-29); CHLORIDE 113 mmol/L (98-107); CREATININE, SERUM 0.91 mg/dL (0.57-1.11); EST GLOMERULAR FILTRATION RATE > 60 ML/MIN (60-); GLUCOSE 115 mg/dL (74-118); POTASSIUM 3.8 mmol/L (3.5-5.1); SODIUM 138 mmol/L (136-145)
--- NOTE | 2019-01-01 07:00 | NUR ---
BEDSIDE SHIFT REPORT RECEIVED FROM [facility] RN. PT DENIES NEEDS AT THIS TIME.
[2019-01-01] MEDS: INSULIN REGULAR, HUMAN 100 UNIT/1 ML 3ML VIAL SQ SCH ×4 (07:30→20:55)
[2019-01-01] MEDS: VANCOMYCIN 1GM/NS 250 ML 250 ML IV SCH ×2 (08:00→08:12)
[2019-01-01] MEDS: METOPROLOL TARTRATE 25 MG TAB PO SCH ×2 (08:22→20:55)
[2019-01-01] MEDS: METHADONE HCL 10 MG TAB PO SCH ×2 (08:22→17:07)
[2019-01-01] MEDS: MEGACE 400MG/ 10ML CUP PO SCH (08:22)
[2019-01-01] MEDS: MULTIVITAMINS/MINERALS TAB PO SCH (08:23)
[2019-01-01] MEDS: FAMOTIDINE 20 MG TAB PO SCH ×2 (08:23→17:07)
[2019-01-01] MEDS: BUPROPION HCL 75 MG TAB PO SCH (08:23)
[2019-01-01] MEDS: ZINC SULFATE 220 MG CAP PO SCH (08:23)
[2019-01-01] MEDS: ASCORBIC ACID 500 MG TAB PO SCH (08:23)
[2019-01-01] MEDS: VITAMIN E 400 UNIT CAP PO SCH (08:23)
--- NOTE | 2019-01-01 09:57 | NUR ---
ASSESSMENT: Spiritual distress Pt tearful. Pt states she is "in pain" and doesn't want a visit at this time. Pt states she is scheduled for a procedure today. Intervention: Provided unhurried empathic listening. Provided blessing. Outcome: Will continue to follow. Followed up with RN. SHAAN CISSE Salesperson [facility] Department O: [phone] Pager: [phone] ([phone] number calling from)
[2019-01-01] MEDS: HYDROMORPHONE 2MG/ML 2 MG/ML ML IV PRN ×3 (10:24→20:28)
--- NOTE | 2019-01-01 10:58 | NUR ---
Received call from Sydni with admissions at [facility], requesting updated clinicals. Clinicals were faxed to [phone]
[2019-01-01] MEDS ORDERED: GELATIN SPONGE 12-7MM ONE ×2 (11:37→11:41)
[2019-01-01] MEDS ORDERED: FENTANYL CITRATE/PF 100MCG/2 ML INJ ONE ×2 (11:56→13:21)
[2019-01-01] MEDS ORDERED: MIDAZOLAM HCL 2 MG/2 ML VIAL ONE ×2 (11:56→13:21)
[2019-01-01] MEDS ORDERED: LIDOCAINE HCL 2% LOCAL 20 ML VIAL ONE (11:56)
[2019-01-01] MEDS ORDERED: IOPAMIDOL 300MG/ML 100 ML INFUS..BTL IV ONE ×3 (11:57→13:26)
[2019-01-01] MEDS ORDERED: SODIUM CHLORIDE 0.9% 1000ML 2,000 ML ONE (11:57)
--- NOTE | 2019-01-01 12:00 | NUR ---
PT OFF THE FLOOR TO WELL DRILL OPERATOR CABLE TOOL.
--- NOTE | 2019-01-01 12:34 | NUR ---
Spoke to Dr. Bean regarding discharge plan. He states he wants to monitor pt's hgb for one more day since she just had a procedure - uterine artery embolization - today. Plan to transfer to [facility] tomorrow if stable and insurance approve. Edmar Tory at [facility].
[2019-01-01] MEDS ORDERED: HYDROMORPHONE 2MG/ML 2 MG/ML ML ONE (13:29)
--- NOTE | 2019-01-01 14:25 | NUR ---
PT BACK TO THE ROOM FROM LIVESTOCK SALES REPRESENTATIVE. PT'S VITALS WNL. PT TO REMAIN FLAT FOR 3 HRS.
--- NOTE | 2019-01-01 15:01 | Progress Note ---
DATE: 01/01/2019 SUBJECTIVE: The patient is doing well. She is actually currently IR to have a uterine artery embolization. The patient has significant amount of bleeding overnight. PHYSICAL EXAMINATION: VITAL SIGNS: Temperature is 99.8, pulse is 92, respiratory rate is 19, blood pressure 138/70, pulse ox 99% on room air. Currently, the patient is in the IR, I am unable to evaluate the patient at this time. I discussed plan of care with the nursing staff. LABORATORY DATA: Labs show white count 11.9, hemoglobin 10.4, hematocrit is 31, platelets of 422. Chemistries reviewed show sodium 138, potassium 3.8, chloride 113, bicarb 15, anion gap of 13, BUN 37, creatinine is 0.91, glucose is 115, calcium is 9.1. MICROBIOLOGY: Blood cultures show gram-negative bacilli, 1 or 2. IMAGING STUDIES: None. IMPRESSION: 1. Severe sepsis with leukocytosis, now with positive blood culture, gram-negative rods, one or two, some bacteremia. 2. Stage IV sacral wound. 3. Severe protein-calorie malnutrition. 4. Stage IV uterine cancer with metastasis, now with vaginal bleeding. 5. Very poor prognosis. 6. General weakness and medically debilitated. 7. Bilateral hydronephrosis with ureteral stents with hematuria, status post bilateral ureteral stents removal with left ureteral stent exchange performed on 12/12/2018 with worsening hematuria, status post nephrostomy tube placed on the right side on 12/29/2018. 8. Acute kidney injury secondary to postobstructive nephropathy, improved. 9. Hypercalcemia, resolved. 10. Anemia of chronic disease with underlying hematuria, vaginal bleeding. 11. Adjustment disorder with mood. 12. Sinus tachycardia. PLAN: At this time, she is getting uterine artery embolization today as we speak. Her blood culture 1 or 2 was positive. She will continue with IV antibiotics and ID is following very closely. Once again, she continues to refuse hospice. We will get a.m. labs and monitor her very closely. She cannot be discharged until blood cultures are back and we had identification and sensitivity. She will discharge on the appropriate antibiotic. MD CHASE Saravia/TALHA /[id number]
--- NOTE | 2019-01-01 16:33 | Diagnostic Imaging Report ---
Date and Time: 01/01/2019 Procedure: Pelvic angiography, Gelfoam embolization of the anterior divisions of the bilateral internal iliac arteries. snuff packing machine operator: Dr. Appiah Pre-operative diagnosis: Uterine mass, ongoing vaginal bleeding Post-operative diagnosis: Uterine mass, ongoing vaginal bleeding Conscious Sedation: Versed 3 mg and Fentanyl 150 mcg. Hydromorphone 1 mg intravenous. The patient's heart rate and pulse oximetry were continuously monitored by the interventional radiology nurse. Blood pressure was monitored at 5 minute intervals. Total sedation time: 120 minutes Additional Medications: Lidocaine 1% for local anesthesia Fluoroscopy time: 28 minutes Dose-area Product: 3514.5 cGycm2. Contrast used: 80 cc Isovue-300 Estimated blood loss: 30 cc Blood products administered: None Specimens: None Implants: None Complications: Small iatrogenic dissection of the anterior division of the left internal iliac artery, without flow limitation. Condition at completion: Stable Disposition: Returned to floor DISCUSSION: Informed consent was obtained and documented in the medical record after discussion of risks and benefits. The patient was placed in the supine position on the angiographic table. The right groin was prepped and draped in the standard sterile fashion. A suitable percutaneous approach to the right common femoral artery was identified and 1% lidocaine was infiltrated into the skin and subcutaneous tissues for local anesthesia. Then under continuous sonographic guidance, a 21-gauge micropuncture needle was used to access the right common femoral artery. A permanent sonographic image was stored in the medical record. A 0.0 1 8-in. wire was advanced centrally under fluoroscopic guidance. The needle was exchanged for a 5 Beninese micropuncture sheath, and the wire upsized to a 0.0 3 5-in. J-wire, which was advanced into the low abdominal aorta. The micropuncture sheath was then exchanged for a 5 Beninese vascular sheath. A 5 Beninese flush catheter was advanced over the wire into the low abdominal aorta. Digital subtraction angiography of the pelvis was performed. The J-wire was reintroduced through the catheter and advanced into the left common femoral artery. The catheter was removed over the wire and exchanged for a 5 Beninese C2 catheter, which was advanced over the wire into the left external iliac artery. The wire was removed and the catheter was used to select the left internal iliac artery. Digital subtraction angiography was performed. A 0.0 3 5-in. Glidewire was advanced through the C2 catheter and used to select the anterior division of the internal iliac artery. The catheter was advanced over the wire, which was then removed. Digital subtraction angiography of the anterior division was performed. A 2.8 Beninese ProGreat microcatheter was then advanced through the C2 catheter and into the anterior division. From this location, embolization was performed using a Gelfoam slurry to the endpoint of marked pruning of distal vascular branches and absence of abnormal tumor vascularity coursing medially. The catheter was retracted into the internal iliac artery and digital subtraction angiography was repeated. The J-wire was then reintroduced through the catheter and a Al loop was formed. Attempts to select the ipsilateral internal iliac artery using the Al loop were unsuccessful. The J-wire was reintroduced through the catheter, which was then removed. The 5 Beninese flush catheter was reintroduced over the wire and used to engage the ostium of the right internal iliac artery. The microcatheter was reintroduced through the flush catheter and advanced into the anterior division of the internal iliac artery. Digital subtraction angiography was performed. From this location, embolization was performed using Gelfoam slurry to an endpoint of marked pruning of distal vascular structures and reduction in tumor vascularity coursing medially. The microcatheter was removed. The J-wire was reintroduced through the flush catheter, which was then removed. A small amount of dilute contrast material was then injected through the vascular sheath with insurance claim representative fluoroscopic images stored. Hemostasis was then achieved by deployment of a Mynx vascular closure device in the standard fashion after repeat sterile preparation of the groin. A sterile dressing was applied. The patient tolerated the procedure well. FINDINGS: 1. Patent bilateral common, internal, and external iliac arteries. Mild tumor vascularity arising from the bilateral anterior divisions of the internal iliac arteries. 2. Selective angiography of the anterior division of the left internal iliac artery showed a small focus of subintimal contrast compatible with dissection, without limitation in antegrade flow. Neovascularity was noted to arise from multiple branches of the anterior division. The distribution was then successfully embolized using Gelfoam slurry, with marked reduction in tumor vascularity. 3. Selective angiography of the anterior division of the right internal iliac artery showed a small amount of tumor vascularity corresponding to the known uterine mass. Neovascularity was noted to arise from multiple branches of the anterior division. The distribution was successfully embolized using Gelfoam slurry, with marked reduction in tumor vascularity. IMPRESSION: Successful pelvic angiography with Gelfoam embolization of the bilateral anterior divisions of the internal iliac arteries, with pruning and reduction of tumor vascularity in this patient with history of known uterine mass and ongoing vaginal bleeding. Signed by: Dr. Guanaco Appiah M.D. on 01/01/2019 4:30 PM
[2019-01-01] MEDS: MELATONIN 5 MG TABLET PO SCH (20:55)
--- NOTE | 2019-01-01 21:32 | NUR ---
Wound vac changed to sacrum, patient tolerated well. Setting at 120.
[2019-01-02] VITALS (9 sets, daily range): BP systolic 105–130; BP diastolic 50–79
[2019-01-02] MEDS: CEFEPIME 1GM/NS 0.9% 50 ML 50 ML IV SCH (03:58)
[2019-01-02] MEDS: HYDROMORPHONE 2MG/ML 2 MG/ML ML IV PRN ×3 (03:58→20:31)
[2019-01-02] MEDS: SODIUM CHLORIDE 0.9% 1000ML 1,000 ML IV SCH ×2 (03:58→17:40)
[2019-01-02] MEDS: GABAPENTIN 300 MG CAP PO SCH ×3 (05:42→20:30)
[2019-01-02] MEDS: CYCLOBENZAPRINE HCL 10 MG TAB PO SCH ×3 (05:42→20:30)
[2019-01-02 05:43] LABS: BASOPHILS % 0.3 % (0.0-1.0); EOSINOPHILS # (AUTO) 0.2 (0.0-0.4); EOSINOPHILS % 1.9 % (0.0-6.0); HEMATOCRIT 29.1 % (34.2-44.1); HEMOGLOBIN 9.7 g/dL (12.0-16.0); LYMPHOCYTES # (AUTO) 1.3 (1.0-3.2); LYMPHOCYTES % 9.8 % (18.0-39.1); MEAN CORPUSCULAR HEMOGLOBIN 27.6 pg (28-32); MEAN CORPUSCULAR HGB CONC 33.3 g/dL (31-35); MEAN CORPUSCULAR VOLUME 82.9 fL (81-99); MONOCYTES % 7.4 % (4.4-11.3); NEUTROPHILS # (AUTO) 10.2 (2.1-6.9); NEUTROPHILS % 79.8 % (38.7-80.0); PLATELET COUNT 377 x10e3/uL (140-360); RED BLOOD COUNT 3.51 x10e6/uL (3.6-5.1); RED CELL DISTRIBUTION WIDTH 17.5 % (11.7-14.4)
[2019-01-02 05:48] LABS: ANION GAP 14.1 mmol/L (8-16); BLOOD UREA NITROGEN 28 mg/dL (7-26); BUN/CREATININE RATIO 34 (6-25); CALCIUM 9.1 mg/dL (8.4-10.2); CARBON DIOXIDE 14 mmol/L (22-29); CHLORIDE 114 mmol/L (98-107); CREATININE, SERUM 0.83 mg/dL (0.57-1.11); EST GLOMERULAR FILTRATION RATE > 60 ML/MIN (60-); GLUCOSE 112 mg/dL (74-118); POTASSIUM 4.1 mmol/L (3.5-5.1); SODIUM 138 mmol/L (136-145)
--- NOTE | 2019-01-02 07:00 | NUR ---
BEDSIDE SHIFT REPORT RECEIVED FROM NIGHT RN. PT DENIES NEEDS AT THIS TIME.
[2019-01-02] MEDS: INSULIN REGULAR, HUMAN 100 UNIT/1 ML 3ML VIAL SQ SCH ×4 (07:30→20:48)
--- NOTE | 2019-01-02 08:32 | Progress Note ---
DATE: 01/02/2019 Medicine Progress Note SUBJECTIVE: The patient is doing well today with no complaints. Had status post uterine artery embolization. Very minimal vaginal bleeding today, close to nursing staff. PHYSICAL EXAMINATION: VITAL SIGNS: Temperature 99.3, pulse 86, respiratory rate is 18, blood pressure 113/63, and pulse ox on room air. GENERAL: Not in acute distress. Alert and oriented x3. Cooperative on examination. HEENT: Head is normocephalic and atraumatic. Eyes; pupils are equal, round, and reactive to light bilaterally. Extraocular movements are intact bilaterally. NECK: Supple. Good range of motion throughout. No evidence of erythema or exudates in the posterior pharynx. Has poor dentition. PULMONARY: Clear to auscultation bilaterally. No wheezing, no rales, no rhonchi, no crackles appreciated. CARDIOVASCULAR: Positive S1, S2. No murmurs, rubs, or gallops appreciated. ABDOMEN: Soft, nondistended, and nontender to palpation. Bowel sounds present. MUSCULOSKELETAL: Strength is 5/5 throughout. No evidence of any muscle deficits on examination. No weakness appreciated. NEUROLOGICAL: Cranial nerves II through XII grossly intact. No evidence of any neurological deficits on exam. SKIN: Intact. Warm to touch. Good cap refill. PSYCHIATRIC: Normal affect and mood. EXTREMITIES: No edema. Good range of motion throughout. LAB FINDINGS: Show white count 12.9, hemoglobin 11.7, hematocrit 29, and platelets of 377. Chemistries reviewed. Sodium 138, potassium 4.1, chloride 114, bicarb 14, anion gap of 14, BUN 20, creatinine 0.83, and calcium is 9.3. IMPRESSION: 1. Severe sepsis with leukocytosis, now 1 of 2 positive blood cultures, bacteremia. 2. Stage IV sacral wound. 3. Severe protein-calorie malnutrition. 4. Stage IV uterine cancer with metastasis with vaginal bleeding, status post uterine artery embolization. 5. Generalized weakness and medically debilitated. 6. Bilateral hydronephrosis with ureteral stents with hematuria status post bilateral ureteral stents removal with left ureteral stent exchange performed on 12/20/2018 with worsening hematuria, status post nephrostomy tube placed on the right side on 12/29/2018. 7. Acute kidney injury secondary to postobstructive nephropathy. 8. Hypocalcemia. 9. Anemia of chronic disease mood. 10. Sinus tachycardia, improved. 11. Poor prognosis. PLAN: Her uterine artery embolization has been performed yesterday on 01/01/2019 with minimal vaginal bleeding. Continue with IV antibiotics per ID. Her blood culture one of two is positive for gram-negative rods. The final identification has not been updated. We are still awaiting custodial facility approval. Discussed case with nursing staff. MD CHASE Saravia/MODL /[id number]
[2019-01-02] MEDS: METHADONE HCL 10 MG TAB PO SCH ×2 (08:50→17:40)
[2019-01-02] MEDS: ASCORBIC ACID 500 MG TAB PO SCH (08:50)
[2019-01-02] MEDS: MEGACE 400MG/ 10ML CUP PO SCH (08:50)
[2019-01-02] MEDS: VITAMIN E 400 UNIT CAP PO SCH (08:50)
[2019-01-02] MEDS: FAMOTIDINE 20 MG TAB PO SCH ×2 (08:50→17:40)
[2019-01-02] MEDS: METOPROLOL TARTRATE 25 MG TAB PO SCH ×2 (08:50→20:30)
[2019-01-02] MEDS: MULTIVITAMINS/MINERALS TAB PO SCH (08:50)
[2019-01-02] MEDS: BUPROPION HCL 75 MG TAB PO SCH (08:50)
[2019-01-02] MEDS: ZINC SULFATE 220 MG CAP PO SCH (08:50)
--- NOTE | 2019-01-02 12:00 | NUR ---
JEIMYE PICC DC'S, TIP CUT AND SENT TO LAB FOR CULTURE. RADIOLOGY CALLED AND NOTIFIED PT CONSENTED FOR NEW PICC LINE.
[2019-01-02] MEDS: MEROPENEM 500MG/ NS 50ML 50 ML IV SCH ×2 (14:59→20:30)
--- NOTE | 2019-01-02 16:36 | Diagnostic Imaging Report ---
EXAM: CHEST XRAY LINE PLACEMENT, AP Portable DATE: 01/02/2019 Time stamp on exam: 2:13 PM INDICATION: PICC COMPARISON: None FINDINGS: LINES/TUBES: Left-sided PICC terminates with the tip overlying the SVC. LUNGS: No consolidations or edema. PLEURA: No effusions or pneumothorax. HEART AND MEDIASTINUM: Normal size and contour. BONES AND SOFT TISSUES: No acute findings. IMPRESSION: No acute thoracic abnormality. Signed by: Dr. Harris Menon DO on 01/02/2019 4:33 PM
--- NOTE | 2019-01-02 17:41 | NUR ---
Nutrition Intervention Note RD Recommendation(s) for Physician: - The patient meets criteria for unspecified SEVERE protein-calorie malnutrition. - Monitor for symptoms of zinc toxicity (nausea, vomiting, diarrhea, stomach pain, flu-like symptoms) as pt has been getting zinc sulfate 220mg daily x18 days - Continue regular diet as ordered - Continue Ensure Enlive TID to increase protein-calorie intake - Continue Tyshawn BID to promote wound healing - Continue Megace to increase appetite - Continue MVi w/minerals, vitamin C for wound healing - Encourage PO and hydration Plan of Care: RD following, monitoring for tolerance and adequacy, ONS rec Nutrition reason for involvement: Follow up RD Assessment 01/02 No change in nutrition status. Pt reports feeling well. No GI complains noted. 12/23 Pt reported some improvement in her appetite. Pt has been eating more foods that her friend brought in. Pt drank 100% of Ensure and take all Tyshawn ordered. No GI complains reported. Pending placement at this time. 12/21 Pt was discussed during AM rounds. Probably returning to SNF tomorrow. No change in nutrition status. Her friend continues to bring foods for patient. 12/18 Pt was discussed during AM rounds. Visited pt in the room. Pt continues to have poor appetite with 0% breakfast intake today. Friend has been bringing foods to her. Pt drank 100% of Ensure ordered. Discussed option for tube feeding; pt was not interested. Will continue to monitor and follow. 12/15 58yo F, who was admitted for acute renal insufficiency and hyperkalemia. K WNL today. BG between 180 280. Pt was well known to me from her previous admission. Pt has had progressive weight loss since dx with uterine cancer in July 2018. Pt was d/c from [facility] on 11/01 and lost ~20lbs while staying in [place]. Visited pt in the room. Pt continued to have poor appetite with decreased PO intake. No complains of nausea or vomiting. Pt denied any chewing or swallowing difficulty. Ileostomy bag present. Wound care was consulted for pressure wound. Pt was agreeable with nutrition recommendation above; RD will communicate with MD. Will continue to monitor and follow. Principal Problems/Diagnoses: acute renal insufficiency, anemia, hyperkalemia (resolved) PMH: advanced uterine cancer, diabetes with stage III sacral decubitus ulcer GI: abdomen tender, flat, soft, liquid brown stool, + ileostomy Skin: Sacral - Stage IV Pressure Ulcer - Present On Admission. Labs: (01/02) BUN 28 H, Glucose 131 H (12/25) K 5.3 H, BUN 69 H, Creatinine 1.66 H (12/21) No chemistry lab (12/18) BUN 29 H, Creatinine 0.55 L, glucose 137 H (12/15) Na 128 L, BUN 74 H, Creatinine 1.96 H, Glucose 183 H, Ca 11.4 H Meds: flexeril, megace, zinc sulfat, vitamin E, MVi w/minerals, vitamin C, pepcid, NaCl Ht: 61in Wt: 94.03lb; 96lb; 99lb; 96.5lbs BMI: 17.8kg/m2 IBW: 105lb Malnutrition Evaluation (12/15/2018) The patient meets criteria for unspecified SEVERE protein-calorie malnutrition. Energy intake: <75% of estimated energy requirements for >3 months Weight loss: >10% in 6 months (Chronic) Fat loss: Severe orbital with dark venetie ira and hollow, apparent ribs, protrusion of clavicle Muscle loss: Severe temporal depression, squaring shoulder, protruding clavicle, thin calves Supporting Evidence: Fluid accumulation: unable to evaluate Functional Status: no changes Nutrition Prescription (Diet Order): regular diet with Ensure TID and Tyshawn BID Estimated Nutritional Needs: Calories: 1290 1505kcal (30-35kcal/kg/d) Weight used : CBW Protein: 65 108g (1.5-2.5g/kg/d) Weight used: CBW Diet Adequacy: Not meeting calorie needs, Not meeting protein needs Diet Education Needs Assessment: Diet education indicated, but patient not appropriate for education at this time. Nutrition Care Level: mod Nutrition Diagnosis: Severe cancer related malnutrition related to inadequate oral intake as evidenced by <75% of estimated energy requirements for >3 months, >10% weight loss in 6 months, and severe muscle/ fat loss upon NFPA. Goal: Patient will meet 75-100% of estimated needs by follow up Progress: Progressing Interventions: General healthful diet, Commercial beverage, Commercial food, Prescription medications, Multivitamin/mineral supplement therapy, Collaboration with other providers Monitoring/Evaluation: Total energy intake, Total protein intake, Prescription medication, Modified diet, Liquid supplement, Weight change Signed: Kelly Saavedra MS, RD, LD
--- NOTE | 2019-01-02 19:54 | Progress Note ---
DATE: 01/02/2019 Psychiatric Progress Note. SUBJECTIVE: The patient evaluated and events noted. The patient is in the room. She is alert, awake, and oriented to situation. She states she is doing better and less depressed and less anxious. She denies any hallucination. She denies any suicidal ideation. She reports sleeping and eating well. She denies any side effects to medication. ASSESSMENT: Adjustment disorder with mixed mood. PLAN: 1. Continue Wellbutrin 75 mg p.o. twice a day. 2. Continue with melatonin. 3. Continue with Neurontin. 4. Monitor for mood. Dictated by Marilou Wells PA-C Dolly Mas MD QTV/MODL /[id number]
[2019-01-02] MEDS: MELATONIN 5 MG TABLET PO SCH (20:30)
[2019-01-03] VITALS (8 sets, daily range): BP systolic 99–142; BP diastolic 58–101
[2019-01-03] MEDS: HYDROMORPHONE 2MG/ML 2 MG/ML ML IV PRN ×4 (03:50→18:45)
[2019-01-03] MEDS: SODIUM CHLORIDE 0.9% 1000ML 1,000 ML IV SCH ×2 (04:21→14:30)
[2019-01-03 05:32] LABS: BASOPHILS # (AUTO) 0.1 (0.0-0.1); BASOPHILS % 0.4 % (0.0-1.0); EOSINOPHILS # (AUTO) 0.4 (0.0-0.4); HEMATOCRIT 30.6 % (34.2-44.1); LYMPHOCYTES # (AUTO) 2.2 (1.0-3.2); LYMPHOCYTES % 17.4 % (18.0-39.1); MEAN CORPUSCULAR HGB CONC 32.7 g/dL (31-35); MEAN CORPUSCULAR VOLUME 82.7 fL (81-99); MONOCYTES # (AUTO) 0.9 (0.2-0.8); MONOCYTES % 7.2 % (4.4-11.3); NEUTROPHILS # (AUTO) 9.2 (2.1-6.9); NEUTROPHILS % 71.2 % (38.7-80.0); PLATELET COUNT 473 x10e3/uL (140-360); RED CELL DISTRIBUTION WIDTH 17.8 % (11.7-14.4)
[2019-01-03] MEDS: CYCLOBENZAPRINE HCL 10 MG TAB PO SCH ×3 (05:39→21:38)
[2019-01-03] MEDS: MEROPENEM 500MG/ NS 50ML 50 ML IV SCH ×3 (05:39→21:38)
[2019-01-03] MEDS: GABAPENTIN 300 MG CAP PO SCH ×3 (05:39→21:38)
[2019-01-03 05:52] LABS: ANION GAP 13.7 mmol/L (8-16); BLOOD UREA NITROGEN 24 mg/dL (7-26); BUN/CREATININE RATIO 34 (6-25); CALCIUM 9.2 mg/dL (8.4-10.2); CARBON DIOXIDE 17 mmol/L (22-29); CHLORIDE 110 mmol/L (98-107); CREATININE, SERUM 0.71 mg/dL (0.57-1.11); EST GLOMERULAR FILTRATION RATE > 60 ML/MIN (60-); GLUCOSE 94 mg/dL (74-118); POTASSIUM 3.7 mmol/L (3.5-5.1); SODIUM 137 mmol/L (136-145)
[2019-01-03] MEDS: INSULIN REGULAR, HUMAN 100 UNIT/1 ML 3ML VIAL SQ SCH ×4 (07:30→21:00)
[2019-01-03] MEDS: MULTIVITAMINS/MINERALS TAB PO SCH (08:30)
[2019-01-03] MEDS: FAMOTIDINE 20 MG TAB PO SCH ×2 (08:30→16:48)
[2019-01-03] MEDS: METHADONE HCL 10 MG TAB PO SCH ×2 (08:30→16:48)
[2019-01-03] MEDS: MEGACE 400MG/ 10ML CUP PO SCH (08:30)
[2019-01-03] MEDS: METOPROLOL TARTRATE 25 MG TAB PO SCH ×2 (08:30→21:00)
[2019-01-03] MEDS: ZINC SULFATE 220 MG CAP PO SCH (08:31)
[2019-01-03] MEDS: BUPROPION HCL 75 MG TAB PO SCH (08:31)
[2019-01-03] MEDS: ASCORBIC ACID 500 MG TAB PO SCH (08:31)
[2019-01-03] MEDS: VITAMIN E 400 UNIT CAP PO SCH (08:31)
--- NOTE | 2019-01-03 15:12 | Progress Note ---
DATE: 01/03/2019 Medicine Progress Note SUBJECTIVE: The patient is doing well today with no complaints. Awaiting for final tip culture of the PICC line in order for us to discharge her home. PHYSICAL EXAMINATION: VITAL SIGNS: Temperature 96.9, pulse 84, respiratory rate is 18, blood pressure 142/101, pulse ox 97% on room air. GENERAL: Not in acute distress. Alert and oriented x3. Cooperative on examination. HEENT: Head is normocephalic and atraumatic. Eyes; pupils are equal, round, and reactive to light bilaterally. Extraocular movements are intact bilaterally. NECK: Supple. Good range of motion throughout. No evidence of erythema or exudates in the posterior pharynx. Has poor dentition. PULMONARY: Clear to auscultation bilaterally. No wheezing, no rales, no rhonchi, no crackles appreciated. CARDIOVASCULAR: Positive S1, S2. No murmurs, rubs, or gallops appreciated. ABDOMEN: Soft, nondistended, and nontender to palpation. Bowel sounds present. MUSCULOSKELETAL: Strength is 5/5 throughout. No evidence of any muscle deficits on examination. No weakness appreciated. NEUROLOGICAL: Cranial nerves II through XII grossly intact. No evidence of any neurological deficits on exam. SKIN: Intact. Warm to touch. Good cap refill. PSYCHIATRIC: Normal affect and mood. EXTREMITIES: No edema. Good range of motion throughout. LAB FINDINGS: Show white count of 12.8, hemoglobin 10, hematocrit 31, platelets of 473. Coagulation; PT 14, INR 1. Chemistry; sodium 137, potassium 3.7, chloride 110, bicarb 17, anion gap 13, BUN 24, creatinine 0.71, glucose 94, calcium 9.2. MICROBIOLOGY: Tick cultures are pending. Preliminary blood culture one of two shows Enterobacter cloacae. IMPRESSION: 1. Severe sepsis with leukocytosis, now positive blood culture with Enterobacter cloacae. 2. Stage IV sacral wound. 3. Severe protein-calorie malnutrition. 4. Stage IV uterine cancer with metastasis with vaginal bleeding, status post uterine artery embolization now with no bleeding seen. 5. Generalized weakness and medically debilitated. 6. Bilateral hydronephrosis with ureteral stents with hematuria, status post bilateral ureteral stents removal with left ureteral stent exchange performed on 12/20/2018 with worsening hematuria, status post right-sided nephrostomy tube placed on 01/06/2019, much improved. 7. Acute kidney injury secondary to postobstructive nephropathy. 8. Hypocalcemia. 9. Chronic anemia. 10. Anxiety disorder. 11. Sinus tachycardia. 12. Poor prognosis. PLAN: At this time, she is not having any vaginal bleeding and has improved tremendously. Continue with IV antibiotics for now. Awaiting for PICC line cultures. I also waiting on the final one of the blood cultures one of two, which is currently not back. She does have sensitivities, but she will likely end up going on Cipro and Levaquin. My goal is to discharge her out by tomorrow. She is otherwise stable, doing well with no other issues. She is afebrile as well. Labs are stable. MD CHASE Saravia/TALHA /[id number]
--- NOTE | 2019-01-03 15:57 | NUR ---
MPRESSION: 1. Severe sepsis with leukocytosis, now positive blood culture with Enterobacter cloacae. 2. Stage IV sacral wound. 3. Severe protein-calorie malnutrition. 4. Stage IV uterine cancer with metastasis with vaginal bleeding, status post uterine artery embolization now with no bleeding seen. 5. Generalized weakness and medically debilitated. 6. Bilateral hydronephrosis with ureteral stents with hematuria, status post bilateral ureteral stents removal with left ureteral stent exchange performed on 12/20/2018 with worsening hematuria, status post right-sided nephrostomy tube placed on 01/06/2019, much improved. 7. Acute kidney injury secondary to postobstructive nephropathy. 8. Hypocalcemia. 9. Chronic anemia. 10. Anxiety disorder. 11. Sinus tachycardia. 12. Poor prognosis. [id number]
--- NOTE | 2019-01-03 16:05 | NUR ---
Spoke to Dr. Velazquez who states he can discharge pt today on oral antibiotic. Informed Sydni with [facility] and she gave MOT. Luis Mayes [address] [place] [id number] Lance Gastelum to attend. RTF with pt's packet. GAUTAM Baer was informed of bed assignment.
[2019-01-03] MEDS ORDERED: CIPROFLOXACIN 500 MG TAB PO SCH (17:00)
--- NOTE | 2019-01-03 17:13 | Progress Note ---
DATE: 01/03/2019 SUBJECTIVE: Leonarda is doing better. There is no new complaint. REVIEW OF SYSTEMS: She is just weak. No new issues. PHYSICAL EXAMINATION: GENERAL: She is currently alert, oriented, does not seem to be in acute distress. VITAL SIGNS: Stable, currently afebrile. HEENT: She is not icteric. NECK: Supple. CHEST: Clear. HEART: S1, S2. No S3 or S4 or murmur. ABDOMEN: Soft. Bowel sounds present. No tenderness. EXTREMITIES: No edema. LABORATORY DATA: Reviewed. The blood culture showed that she had Enterobacter cloacae. Sensitivity pattern reviewed. Her catheter tip is still pending. Repeat blood culture is not done, but her white count came down to 12.6. IMPRESSION AND PLAN: Sepsis, line infection. The patient will be discharged home with Cipro 500 mg p.o. b.i.d. for 14 days. Discontinue central line. The patient with stage IV sacral wound, severe protein-calorie malnutrition. Continue nutritional support. Stage IV uterine cancer with metastases and vaginal bleed, status post uterine artery embolization. Prognosis is extremely poor, but the patient would like to see her MD Berrios doctor before she decides any decision what to do in terms of hospice or not. Discussed with the patient. We will follow. MD PEGGY Ford/MARIA ELENAL /[id number]
--- NOTE | 2019-01-03 19:38 | NUR ---
Received change of shift report from AM nurse. Round completed.
[2019-01-03] MEDS: MELATONIN 5 MG TABLET PO SCH (21:00)
--- NOTE | 2019-01-03 21:56 | NUR ---
Patient d/c to SNF
--- NOTE | 2019-01-04 22:36 | Progress Note ---
DATE: 01/03/2019 CHIEF COMPLAINT: The patient with advanced uterine cancer and anemia secondary to vaginal bleeding. HISTORY OF PRESENTING ILLNESS: Ms. Nash is a 58-year-old female with complicated past medical history including known history of locally advanced uterine cancer causing compression, the uterine leading to bilateral hydronephrosis and renal insufficiency. She was hospitalized due to fever, generalized weakness, and sepsis. She was remained in the ICU and required IV antibiotics and support. She also developed vaginal bleeding and anemia. She required PRBC transfusion. She was recommended best supportive care versus comfort measure. The patient wanted to be DNR/DNI, but made decision against it for now. She was also offered hospice care, however, she declined. During hospitalization, she also developed severe vaginal bleeding, requiring embolization with improved bleeding and counts. She has been recommended to follow up in outpatient setting. MD JAYSHREE Schaffer/TALHA /[id number]
--- NOTE | 2019-01-05 06:57 | Discharge Summary ---
FINAL DISCHARGE DIAGNOSES: 1. Severe sepsis with leukocytosis, found to have positive blood culture with Enterobacter cloacae, discharged on oral Cipro for 2 weeks by ID recommendations. 2. Stage IV sacral wound. 3. Severe protein-calorie malnutrition. 4. Stage IV uterine cancer with metastases with vaginal bleeding, status post uterine artery embolization performed. 5. Generalized weakness and medically debilitated. 6. Bilateral hydronephrosis with ureteral stents with hematuria, status post bilateral ureteral stents removal with left ureteral stent exchange, performed on 12/20/2018, developed worsening hematuria, status post right-sided nephrostomy tube placed on 12/27/2018. 7. Acute kidney injury secondary to postobstructive nephropathy, resolved. 8. Hypocalcemia, improved. 9. Chronic anemia. 10. Anxiety. 11. Sinus tachycardia, resolved. 12. Poor prognosis. CONSULTANTS: We had Urology, Infectious Disease, interventional Radiology, Hematology/Oncology. PHYSICAL EXAMINATION: VITAL SIGNS: Temperature is 97.4, pulse 85, respiratory rate 19, blood pressure 108/60, pulse ox 97% on room air. LAB FINDINGS: Show white count is 12.8, hemoglobin 10, hematocrit is 31, platelets of 473. Coagulation; PT 14 and INR 1. Chemistry; sodium 137, potassium 3.7, chloride 110, bicarb is 17, anion gap of 13, BUN 24, creatinine 0.71, glucose is 94, calcium is 9.2. LFTs are within normal range. Albumin 2.1. Urinalysis showed no growth. One of the 4 blood cultures was positive for Enterobacter cloacae, requiring PICC line removal. HOSPITAL COURSE: This lady is a 58-year-old female with known history of stage IV uterine cancer with metastases, who currently is not on any chemotherapy and has not ever started on chemotherapy according to the patient. The patient lives at a longterm facility [facility], here in [place], came in with worsening encephalopathy, fever, and was treated for underlying septic shock. The patient was initially admitted to [facility], started on broad-spectrum IV antibiotics and urine and blood cultures were collected. Infectious Disease was consulted as well. The patient maintained on broad-spectrum IV antibiotics. Initially, the patient's blood cultures and urine cultures were all negative. There is no indication of any type of infection based also on imaging studies, chest x-ray. Initially while in [facility], she developed hematuria, requiring Urology consultation. Imaging studies were consistent with bilateral hydronephrosis with needing a stent exchange. The patient's creatinine was slightly elevated as well. It was felt that the underlying hematuria is from the ureteral stents. The patient underwent status post bilateral ureteral stent removal and left ureteral stent exchange, that was performed on 12/20/2018 by Urology. The patient in that stance improved and hematuria resolved. At some point while in [facility], her antibiotics were discontinued as her blood and urine cultures were found to be negative and there was no obvious source of infection. Though the white count was elevated and it was felt to be from underlying malignancy as per ID and Hematology/Oncology recommendations. While here, Hematology/Oncology was consulted and he discussed with her the need for hospice services. The patient did not want here by hospice, instead on several occasions told us not to ever talk about hospice again. We have talked about it at several occasions, but continued to refuse, and the patient wanted to be eventually discharged back to longterm facility. Her stage IV sacral wound was monitored and evaluated on a daily basis. She maintained on tube feeds as well. She was not able to be eat enough while in the hospital. During the hospital stay, she was supposed to be discharged to [facility], but it seems that the insurance did not except the new longterm facility placement, which prolonged and delayed the patient's discharge. While she continued to be here, she spontaneously developed some vaginal bleeding, requiring re-evaluation by Hematology/Oncology. At that time, her Oncology recommended Interventional Radiology to perform a uterine artery embolization, which was performed by IR and improved tremendously. The patient had no more evidence of vaginal bleeding prior to being discharged. Later in the hospital course, the patient developed fever and white count which was a little bit higher than usual and found to have a blood culture positive for Enterobacter cloacae. The patient was re-initiated back on IV antibiotics and ID was following accordingly. The sensitivities came back and shows it was sensitive to Cipro, in which Infectious Disease sent the patient on Cipro 500 mg twice daily for 14 total days. In relation to her vaginal bleeding, resolved after the uterine artery embolization. We encouraged the patient to eat more, more supplemental shakes, and added some oral appetite stimulants as well. The patient continues to have worsening generalized weakness at baseline and worked with PT and OT while here. At some point again after the hematuria resolved, restarted again requiring Urology consultation once more. After further discussion, it was felt that the patient needed a right-sided nephrostomy tube to help decompress the kidney and also help with hematuria. The patient underwent status post right-sided nephrostomy tube placed on 12/27/2018 by Interventional Radiology. The patient did well and the hematuria all resolved. She did have underlying acute kidney injury secondary to postobstructive nephropathy, but resolved prior to being discharged. Pain Management was consulted for pain control as well. Her anemia, she did require some blood transfusions while she was here in the hospital stay due to underlying vaginal bleeding. Her anxiety is at baseline and she was doing much better prior to being discharged home. The patient will continue with oral antibiotics at the longterm facility level and continue with physical therapy addressed and resume same home medications. On discharge, the patient was doing well, back to normal baseline with no other complaints. On the day of discharge, vital signs stable, labs reviewed and stable. The patient is seen and evaluated, examined thoroughly on the day of discharge. No other complaints. The patient verbalized understanding and agrees to plan of care. A followup appointment as an outpatient with the primary care physician in 1 week and her primary oncologist is at [facility] in about 2 weeks' time and our consultants see her here in the hospital about 2 weeks' time. Once again, the patient was discharged without my authorization from the nursing staff on 01/04/2019. I presented on 01/04/2019, found the patient to be discharged. There was no final order or answer by me to discharge the patient. I did review this case with the nursing staff and we did look to see that the patient was discharged on oral Cipro for 2 more weeks as recommended by Infectious Disease, but the patient continues to have a PICC line, which needs to be removed at the longterm facility level. This was relayed from our case investigator. We relayed that admission to the bilingual case manager that they are at the longterm facility level. Otherwise, upon discharge, she was stable, had no other complaints, and she was back to normal baseline. She was in good spirits prior to being discharged home. On the day of discharge, vital signs stable, labs reviewed and stable. The patient was seen, evaluated, examined thoroughly on the day of discharge. No other complaints. The patient verbalized understanding and agrees with plan of care to followup appointment as an outpatient with the primary care physician in 1 week and her oncologist in 2 weeks and the consultants as described above in about 2 weeks' time. The patient once again was discharged on oral Cipro as per ID recommendations. MEDICATIONS: See med reconciliation form. DISPOSITION: Home. CONDITION: Stable. DIET: Heart healthy. In the event of any worsening symptoms, the patient was advised to come back to the ED for further evaluation. Discharge summary took greater than 35 minutes. MD CHASE Saravia/MODDipesh /[id number]
--- NOTE | 2019-01-07 19:14 | Operative Report ---
DATE OF PROCEDURE: 12/20/2018 SURGEON: Elmer Daley MD PREOPERATIVE DIAGNOSIS: Bilateral hydronephrosis with bilateral stent placement. POSTOPERATIVE DIAGNOSES: 1. Bilateral hydronephrosis with bilateral stent placement. 2. Right distal ureteral stricture. OPERATIVE PROCEDURES: 1. Cystoscopy. 2. Bilateral retrograde pyelogram. 3. Replacement of left ureteral stent. ANESTHESIA: General anesthesia. ESTIMATED BLOOD LOSS: Minimal. INDICATION: Ms. Brower is a 58-year-old woman with a history of advanced uterine cancer, who presents for evaluation for hematuria and bilateral hydronephrosis. PROCEDURE IN DETAIL: The patient was brought in the operative room, placed in supine position. After administration of general anesthesia, she was left in dorsal lithotomy position and prepped and draped in usual sterile fashion. Cystourethroscopy was performed using 21-Qatari cystoscope. The anterior and posterior urethra were noted to be normal. The bladder was entered without difficulty. Upon entrance into the bladder, there was some mild whitish debris floating freely, but no obvious mucosal lesions seen. There are bilateral ureteral stents in place with some periureteral edema from this. Both stents were grasped with an alligator forceps and removed in their entirety. A 5-Qatari open-ended catheter was then used to perform bilateral retrograde pyelograms. The right side revealed a filling of only the distal 3rd of the ureter, at which point the dye came to an abrupt stop. Multiple attempts at advancing the open-ended catheter and a wire were unsuccessful. Retrograde pyelogram performed on the left side revealed hydroureteronephrosis with tortuosity of the ureter up to the ureteropelvic junction. Under fluoroscopic guidance, a wire was placed up into the left renal pelvis and a 6-Qatari double-pigtail stent was placed. No string was left exiting the urethral meatus. The bladder was then drained in its entirety and the cystoscope and sheath were removed. The patient was returned to supine position. Anesthesia was reversed. She was transferred to the bed and taken to the postanesthesia care unit in good condition. Of note, the needle and instrument count were correct at the conclusion of the case. MD FABIEN Castañeda/MODL /[id number]
--- NOTE | 2019-01-10 16:21 | Diagnostic Imaging Report ---
Procedure: Right percutaneous nephrostomy Indication: Patient with uterine cancer who had bilateral ureteral stents. Left one was changed without incident. Right one was removed and a new ureteral stent could not be placed. Medications: Versed 2 mg intravenous, Fentanyl 100 mcg intravenous. The patient's vital signs, including pulse oximetry, were continuously monitored by the interventional radiology nurse. Fluoroscopy time: 5.0 minutes. Dose area product: 1811.8 cGycm2 Contrast used: None Estimated blood loss: Less than 5 cc Complications: No immediate. Procedure in detail: Patient was placed prone on the angiographic table. Local anesthesia with 1% Xylocaine was accomplished. Skinny needle was originally placed near the ureteral pelvic junction and contrast injection was accomplished. Utilizing fluoroscopic guidance a lower pole calyx was then entered with a 21-gauge skinny needle. This was followed by a 0.018 " wire and then a 6 [place] AccuStick sheath. Through the AccuStick sheath a 0.035 Amplatz superstiff wire was placed centrally. Dilatation over the wire with a 8 [place] Vijay dilator was accomplished. An 8 [place] loop locking pigtail APD catheter was then placed into the renal pelvis. This was secured to the skin with 3-0 Ethilon and placed to a drainage bag. Patient tolerated the procedure well. A nephroureteral stent or double-J ureteral stent can be placed at the later date after this tract is matured. Impression: Successful placement of a right percutaneous nephrostomy catheter. Signed by: Dr. Harris Menon DO on 12/29/2018 4:58 PM
--- NOTE | 2019-01-19 15:15 | Consultation ---
DATE OF CONSULTATION: 12/21/2018 Pain Management Progress Note REASON FOR FOLLOWUP: Pain management. SUBJECTIVE: This is a 58-year-old white female with known history of stage IV uterine cancer with metastases, currently not on any chemotherapy and has not ever started on chemotherapy according to the patient. [facility] at [facility]. She came with worsening encephalopathy, fever, and being treated for the septic shock. She was being recovered, admitted in IM, has been under Infection Disease management. She recovered and she developed then hematuria and study shows bilateral hydronephrosis with a stent placement. Her creatinine was elevated also. not resolving. Underwent bilateral ureteral stent removal and left ureteral stent exchange. Her pain excruciatingly worse, especially the kidney pain, 10/10 all the time. She has been seen by Oncology also, who discussed with her the need for the hospice services. The patient did not want . She told not to ever talk about hospice again. She refused hospice care and wanted to be discharged back to the correction facility. She does stage IV sacral wound also along with other problems. She has been on the tube feeding. She is not able to eat since in the hospital. She is supposed to be discharged, but still could not get the placement. She developed also some vaginal bleeding requiring evaluation by the Oncology. Her oncologist recommended Interventional Radiology to perform uterine artery embolization. Her pain is 10/10 on the scale of 0 to 10, 0 being none and 10 being worst. Pain is mostly in the pelvic area low back pain, ongoing pain, has also bone pain. PAST MEDICAL HISTORY: Uterine metastatic cancer, chronic back pain, chronic leg pain, chronic pelvic pain, UTI, hematuria. Oncology is seeing her for the possibility of the hospice care placement. OBJECTIVE: GENERAL: In pain, but not in acute distress. VITAL SIGNS: Within normal. Temperature 97, heart rate 85, respiratory rate 19, blood pressure 108/60. Pain is also 10/10. HEENT: Normocephalic. NECK: Supple. LUNGS: Air entry bilaterally. HEART: Regular rate and rhythm. ABDOMEN: Scaphoid, soft, painful on touch, even has some surgical scars. NEUROLOGIC: Nonfocal. LABORATORY DATA: Noted. ASSESSMENT AND PLAN: This patient has severe problem with history of uterine cancer with metastasis with vaginal bleeding and status post uterine artery embolization, generalized weakness, bilateral hydronephrosis requiring stenting by the Urology, acute kidney injury due to postoperative nephropathy. Chronic pain syndrome, chronic back pain syndrome, chronic neck pain syndrome, opiate dependency in the past. We will continue supportive care while inpatient. Thank you, Dr. Bean, for this patient. I will follow her with you. MD DIONE Shetty/MODL /[id number]
== END 2019-01-03 22:10 | DRG 853 ==
LOC: ER 01:23 → IMCU 03:19 → MED/SURG2 12-21 15:38
PROVIDERS: ADMIT Internal Medicine; ATTEND Internal Medicine
PROC: 0T133JD Bypass Right Kidney Pelvis to Cutaneous with Synthetic Substitute, Percutaneous Approach (ICD-10-PCS; principal; 2018-12-15)
PROC: 30233N1 Transfusion of Nonautologous Red Blood Cells into Peripheral Vein, Percutaneous Approach (ICD-10-PCS; 2018-12-16)
PROC: 0T778DZ Dilation of Left Ureter with Intraluminal Device, Via Natural or Artificial Opening Endoscopic (ICD-10-PCS; 2018-12-20)
PROC: 0TP98DZ Removal of Intraluminal Device from Ureter, Via Natural or Artificial Opening Endoscopic (ICD-10-PCS; 2018-12-20)
PROC: 04VF3DZ Restriction of Left Internal Iliac Artery with Intraluminal Device, Percutaneous Approach (ICD-10-PCS; 2019-01-01)
PROC: 04VE3DZ Restriction of Right Internal Iliac Artery with Intraluminal Device, Percutaneous Approach (ICD-10-PCS; 2019-01-01)
PROC: 02HV33Z Insertion of Infusion Device into Superior Vena Cava, Percutaneous Approach (ICD-10-PCS; 2019-01-02)
PROC: B548ZZA Ultrasonography of Superior Vena Cava, Guidance (ICD-10-PCS; 2019-01-02)
DX: A41.89 Other specified sepsis (principal); L89.154 Pressure ulcer of sacral region, stage 4; E43 Unspecified severe protein-calorie malnutrition; E87.2 Acidosis; N17.9 Acute kidney failure, unspecified; C79.89 Secondary malignant neoplasm of other specified sites; N30.01 Acute cystitis with hematuria; E87.1 Hypo-osmolality and hyponatremia; N13.30 Unspecified hydronephrosis; Z68.1 Body mass index [BMI] 19.9 or less, adult; R65.20 Severe sepsis without septic shock; C55 Malignant neoplasm of uterus, part unspecified; E86.0 Dehydration; I10 Essential (primary) hypertension; E11.9 Type 2 diabetes mellitus without complications; Z87.442 Personal history of urinary calculi; Z83.3 Family history of diabetes mellitus; Z82.49 Family history of ischemic heart disease and other diseases of the circulatory system; D50.0 Iron deficiency anemia secondary to blood loss (chronic); E87.5 Hyperkalemia; W01.0XXA Fall on same level from slipping, tripping and stumbling without subsequent striking against object, initial encounter; Y93.01 Activity, walking, marching and hiking; Y92.121 Bathroom in nursing home as the place of occurrence of the external cause; M54.2 Cervicalgia; Z87.891 Personal history of nicotine dependence; N93.8 Other specified abnormal uterine and vaginal bleeding; G89.4 Chronic pain syndrome; R62.7 Adult failure to thrive; E83.52 Hypercalcemia; F43.23 Adjustment disorder with mixed anxiety and depressed mood; Z79.4 Long term (current) use of insulin
CPT/HCPCS: 36247; 36415; 36569; 36584; 37242; 50432; 70450; 71045; 72125; 72131; 72170; 74177; 74420; 74470; 75625; 80048; 80053; 80202; 81001; 82948; 83735; 84132; 85025; 85610; 86850; 86900; 86920; 87040; 87070; 87071; 87086; 87186; 87205; 94640; 96367; 96372; 96374; 96376; 97139; 97605; 99285; C1758; C1760; C1769; C2617; J0692; J1100; J1650; J1817; J1940; J2001; J2250; J2270; J2310; J2405; J3010; J3370; J3411; J7030; J7040; J7042; J7050; J7070; J7799; P9016; Q0162; Q9967